=== PATIENT | female | born 2000 | race Caucasian/White ===

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

== ENCOUNTER 2019-01-12 12:54 | Emergency (ER) | payer BC, MEDICAID ==
[~2019-01-12] VITALS: Ht 160 cm; Wt 138.0 kg
[2019-01-12 13:40] LABS: HEMATOCRIT 41.4 % (36.0-47.0); HEMOGLOBIN 13.1 g/dl (12.0-15.5); MEAN CORPUSCULAR HEMOGLOBIN 26.5 pg (27.0-33.0); MEAN CORPUSCULAR HGB CONC 31.6 g/dl (32.0-36.5); MEAN CORPUSCULAR VOLUME 83.8 fl (80.0-96.0); PLATELET COUNT, AUTOMATED 345 10^3/uL (150-450); RED BLOOD COUNT 4.94 10^6/uL (4.00-5.40)
[2019-01-12 14:10] LABS: HCG, SERUM QUALITATIVE NEGATIVE (NEGATIVE)
[2019-01-12 14:11] LABS: ACETAMINOPHEN LEVEL < 2.0 UG/ML (10.0-30.0); ALBUMIN 3.3 GM/DL (3.2-5.2); ALT/SGPT 16 U/L (12-78); BILIRUBIN,DIRECT < 0.1 MG/DL (0.0-0.2); BILIRUBIN,TOTAL 0.2 MG/DL (0.2-1.0); BLOOD UREA NITROGEN 12 MG/DL (7-18); CALCIUM LEVEL 8.9 MG/DL (8.5-10.1); CARBON DIOXIDE LEVEL 28 MEQ/L (21-32); CHLORIDE LEVEL 108 MEQ/L (98-107); CREATININE FOR GFR 0.75 MG/DL (0.55-1.30); ETHYL ALCOHOL (ETHANOL) < 0.003 % (0.000-0.010); GLUCOSE, FASTING 90 MG/DL (70-100); SALICYLATE LEVEL < 1.7 MG/DL (5.0-30.0); SODIUM LEVEL 142 MEQ/L (136-145); THYROID STIMULATING HORMONE 0.511 uIU/ML (0.463-3.98); TOTAL PROTEIN 7.3 GM/DL (6.4-8.2)
[2019-01-12 15:35] LABS: AMPHETAMINES LEVEL URINE NEGATIVE (NEGATIVE); BARBITURATES URINE NEGATIVE (NEGATIVE); BENZODIAZEPINES URINE NEGATIVE (NEGATIVE); CANNABINOIDS URINE NEGATIVE (NEGATIVE); COCAINE METABOLITE URINE NEGATIVE (NEGATIVE); METHADONE URINE NEGATIVE (NEGATIVE); OPIATES URINE NEGATIVE (NEGATIVE); PHENCYCLIDINE URINE NEGATIVE (NEGATIVE)
[2019-01-12 19:45] VITALS: BP 119/73
--- NOTE | 2019-01-14 09:36 | ECGEPIP ---
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
== END 2019-01-12 19:53 ==
LOC: M ED 12:54
DX: F32.9 Major depressive disorder, single episode, unspecified (principal); R45.851 Suicidal ideations; Z91.5 Personal history of self-harm; F31.9 Bipolar disorder, unspecified; Z72.0 Tobacco use
CPT/HCPCS: 80048; 80076; 80307; 84443; 84703; 85027; 93005; 99285; G0480

== ENCOUNTER → 2019-02-07 | Outpatient (REF) | payer MEDICAID | LOC: M SFHCPLAZ 11:59 | PROVIDERS: ATTEND Nurse Practitioner Family | DX: Z13.1 Encounter for screening for diabetes mellitus (principal); E03.9 Hypothyroidism, unspecified; E66.01 Morbid (severe) obesity due to excess calories; E78.49 Other hyperlipidemia; Z53.9 Procedure and treatment not carried out, unspecified reason ==

== ENCOUNTER → 2019-02-13 | Outpatient (REF) | payer MEDICAID ==
[2019-02-13 14:09] LABS: ALBUMIN 3.1 GM/DL (3.2-5.2); ALT/SGPT 13 U/L (12-78); BILIRUBIN,TOTAL 0.3 MG/DL (0.2-1.0); BLOOD UREA NITROGEN 12 MG/DL (7-18); CALCIUM LEVEL 8.7 MG/DL (8.5-10.1); CARBON DIOXIDE LEVEL 25 MEQ/L (21-32); CHLORIDE LEVEL 107 MEQ/L (98-107); CHOLESTEROL LEVEL 214 MG/DL (<200); CHOLESTEROL RISK RATIO 4.115 (<5); CREATININE FOR GFR 0.66 MG/DL (0.55-1.30); GLUCOSE, FASTING 85 MG/DL (70-100); HDL CHOLESTEROL 52 MG/DL (>40); LDL CHOLESTEROL 124 MG/DL (<100); NON-HDL-C 162 MG/DL; POTASSIUM SERUM 4.5 MEQ/L (3.5-5.1); SODIUM LEVEL 141 MEQ/L (136-145); TOTAL PROTEIN 6.9 GM/DL (6.4-8.2); TRIGLYCERIDES LEVEL 188 MG/DL (<150)
[2019-02-13 14:49] LABS: HEMOGLOBIN A1c 5.3 %
== END ==
LOC: M SFHCPLAZ 11:16
PROVIDERS: ATTEND Nurse Practitioner Family
DX: E03.9 Hypothyroidism, unspecified (principal); E66.01 Morbid (severe) obesity due to excess calories; Z13.1 Encounter for screening for diabetes mellitus; E78.49 Other hyperlipidemia

== ENCOUNTER → 2019-05-09 | Outpatient (REF) | payer MEDICAID ==
[~2019-05-09] MED LIST changes: -METH36TA; +METH36TA5; -SENE8.6T; -SENE8.6T PO; +SENN1TAB38; +SENN1TAB38 PO; -TRAZ-160 PO; +TRAZ-252 PO; +TRAZ1TAB10 PO; -TRAZO50TA PO
[2019-05-09 13:51] LABS: FREE T4 1.36 NG/DL (0.78-1.33); THYROID STIMULATING HORMONE 0.63 uIU/ML (0.463-3.98)
== END ==
LOC: M SFHCPLAZ 10:53
PROVIDERS: ATTEND Nurse Practitioner Family
DX: E03.9 Hypothyroidism, unspecified (principal)

== ENCOUNTER → 2019-09-20 | Outpatient (REF) | payer MEDICAID ==
[~2019-09-20] MED LIST changes: -DIPH25CA; -DIPH25CA PO; +DIPH25CA32; +DIPH25CA32 PO
[2019-09-20 15:34] LABS: HEMATOCRIT 41.3 % (36.0-47.0); HEMOGLOBIN 12.3 g/dl (12.0-15.5); MEAN CORPUSCULAR HEMOGLOBIN 25.4 pg (27.0-33.0); MEAN CORPUSCULAR HGB CONC 29.8 g/dl (32.0-36.5); MEAN CORPUSCULAR VOLUME 85.3 fl (80.0-96.0); PLATELET COUNT, AUTOMATED 342 10^3/uL (150-450); RED BLOOD COUNT 4.84 10^6/uL (4.00-5.40); WHITE BLOOD COUNT 10.1 10^3/uL (4.0-10.0)
[2019-09-20 16:52] LABS: HEMOGLOBIN A1c 6.2 %
[2019-09-20 17:02] LABS: ALBUMIN 3.1 GM/DL (3.2-5.2); ALT/SGPT 14 U/L (12-78); BILIRUBIN,TOTAL 0.3 MG/DL (0.2-1.0); BLOOD UREA NITROGEN 13 MG/DL (7-18); CALCIUM LEVEL 9.1 MG/DL (8.5-10.1); CARBON DIOXIDE LEVEL 26 MEQ/L (21-32); CHLORIDE LEVEL 109 MEQ/L (98-107); CHOLESTEROL LEVEL 208 MG/DL (<200); CHOLESTEROL RISK RATIO 3.714 (<5); CREATININE FOR GFR 0.66 MG/DL (0.55-1.30); FREE T4 1.39 NG/DL (0.78-1.33); GLUCOSE, FASTING 77 MG/DL (70-100); HDL CHOLESTEROL 56 MG/DL (>40); LDL CHOLESTEROL 126 MG/DL (<100); NON-HDL-C 152 MG/DL; POTASSIUM SERUM 4.3 MEQ/L (3.5-5.1); SODIUM LEVEL 142 MEQ/L (136-145); TRIGLYCERIDES LEVEL 132 MG/DL (<150)
== END ==
LOC: M LABDRAWP 13:14
PROVIDERS: ATTEND Nurse Practitioner Psychiatric/Mental Health
DX: F43.12 Post-traumatic stress disorder, chronic (principal)

== ENCOUNTER 2020-04-09 11:39 | Emergency (ER) | payer MEDICAID, OTHER ==
[~2020-04-09] VITALS: Ht 160 cm; Wt 118.2 kg
[~2020-04-09 11:39] MED LIST changes: -BUPR300T34 PO; +BUPR300T92 PO; +EQ A1CRE3; -MAPA325T2; +MAPA325T8; -TERB1CRE12
[2020-04-09] MEDS ORDERED: BUPR300T92 (11:49)
[2020-04-09] MEDS ORDERED: LITH300C (11:49)
[2020-04-09 13:43] LABS: BASO % 0.2 % (0.0-1.0); EOS # 0.1 10^3/uL (0.0-0.5); HEMATOCRIT 40.6 % (36.0-47.0); HEMOGLOBIN 12.8 g/dl (12.0-15.5); LYMPH # 3.5 10^3/uL (1.5-5.0); LYMPH % 34.9 % (24.0-44.0); MEAN CORPUSCULAR HEMOGLOBIN 26.9 pg (27.0-33.0); MEAN CORPUSCULAR HGB CONC 31.5 g/dl (32.0-36.5); MEAN CORPUSCULAR VOLUME 85.5 fl (80.0-96.0); MONO # 0.7 10^3/uL (0.0-0.8); MONO % 7.3 % (0.0-5.0); NEUTROPHILS # 5.6 10^3/uL (1.5-8.5); NEUTROPHILS % 56.3 % (36.0-66.0); PLATELET COUNT, AUTOMATED 337 10^3/uL (150-450); RED BLOOD COUNT 4.75 10^6/uL (4.00-5.40); WHITE BLOOD COUNT 9.9 10^3/uL (4.0-10.0)
[2020-04-09 14:01] LABS: C REACTIVE PROTEIN QUANTITATIV 1.96 MG/DL (0.00-0.30)
[2020-04-09 14:10] LABS: ERYTHROCYTE SEDIMENTATION RATE 41 mm/hr (0-20)
--- NOTE | 2020-04-09 15:01 | REP ---
Left upper extremity duplex Doppler venous ultrasound. Real time compression and duplex Doppler evaluation of the left upper extremity deep venous system is performed. The left subclavian, jugular, axillary, brachial, basilic and cephalic veins are fully compressible where accessible with transducer pressure, and demonstrate no intraluminal thrombus and normal venous waveforms. There is no evidence of deep venous thrombosis. Impression: No evidence of deep venous thrombosis of the left upper extremity deep vein system. Electronically Signed by Jose Molina MD 04/09/2020 02:53 P
[2020-04-09] MEDS ORDERED: PRED20TA PO (15:05)
[2020-04-09 15:23] VITALS: BP 137/67
== END 2020-04-09 15:24 | disposition home or self-care (01) ==
LOC: M ED 11:39
DX: M79.9 Soft tissue disorder, unspecified (principal); I10 Essential (primary) hypertension; J45.909 Unspecified asthma, uncomplicated; F41.9 Anxiety disorder, unspecified; F31.9 Bipolar disorder, unspecified; F43.10 Post-traumatic stress disorder, unspecified; Z79.899 Other long term (current) drug therapy

== ENCOUNTER → 2020-08-19 | Outpatient (REF) | payer OTHER ==
[~2020-08-19] MED LIST changes: +BUPR300T92; +LITH300C; +PRED20TA PO
[2020-08-19 18:18] LABS: ALBUMIN 3.5 GM/DL (3.2-5.2); ALT/SGPT 39 U/L (12-78); BILIRUBIN,TOTAL 0.4 MG/DL (0.2-1.0); BLOOD UREA NITROGEN 10 MG/DL (7-18); CALCIUM LEVEL 9.1 MG/DL (8.5-10.1); CARBON DIOXIDE LEVEL 29 MEQ/L (21-32); CHLORIDE LEVEL 107 MEQ/L (98-107); CHOLESTEROL LEVEL 197 MG/DL (<200); CHOLESTEROL RISK RATIO 4.925 (<5); CREATININE FOR GFR 0.81 MG/DL (0.55-1.30); FREE T4 1.35 NG/DL (0.76-1.46); GLOMERULAR FILTRATION RATE > 60.0 (>60); GLUCOSE, FASTING 76 MG/DL (70-100); HDL CHOLESTEROL 40 MG/DL (>40); LDL CHOLESTEROL 129 MG/DL (<100); NON-HDL-C 157 MG/DL; POTASSIUM SERUM 5.1 MEQ/L (3.5-5.1); SODIUM LEVEL 141 MEQ/L (136-145); THYROID STIMULATING HORMONE 0.611 uIU/ML (0.358-3.740); TRIGLYCERIDES LEVEL 139 MG/DL (<150)
[2020-08-19 18:40] LABS: HEMOGLOBIN A1c 5.6 %
== END ==
LOC: M SFHCPLAZ 16:10
PROVIDERS: ATTEND Physician Assistant
DX: E66.01 Morbid (severe) obesity due to excess calories (principal); E03.9 Hypothyroidism, unspecified; E78.2 Mixed hyperlipidemia

== ENCOUNTER → 2020-08-28 | Outpatient (REF) | payer OTHER ==
[2020-09-05 14:23] LABS: CHLAMYDIA DNA AMPLIFICATION NEGATIVE (NEGATIVE); GC DNA AMPLIFICATION NEGATIVE (NEGATIVE)
== END ==
LOC: M SFHCWAGY 13:11
PROVIDERS: ATTEND Nurse Practitioner Family
DX: Z11.3 Encounter for screening for infections with a predominantly sexual mode of transmission (principal)

== ENCOUNTER 2020-10-04 16:11 | Emergency (ER) | payer MEDICAID, OTHER ==
[~2020-10-04] VITALS: Ht 160 cm; Wt 164.9 kg
[~2020-10-04 16:11] MED LIST changes: -BUPR300T92; -LITH300C
[2020-10-04 17:44] LABS: HEMATOCRIT 41.1 % (36.0-47.0); HEMOGLOBIN 12.6 g/dl (12.0-15.5); MEAN CORPUSCULAR HEMOGLOBIN 26.5 pg (27.0-33.0); MEAN CORPUSCULAR HGB CONC 30.7 g/dl (32.0-36.5); MEAN CORPUSCULAR VOLUME 86.3 fl (80.0-96.0); PLATELET COUNT, AUTOMATED 274 10^3/uL (150-450); RED BLOOD COUNT 4.76 10^6/uL (4.00-5.40); WHITE BLOOD COUNT 11.8 10^3/uL (4.0-10.0)
[2020-10-04 18:18] LABS: HCG, SERUM QUALITATIVE NEGATIVE (NEGATIVE)
[2020-10-04 18:24] LABS: ACETAMINOPHEN LEVEL < 2.0 UG/ML (10.0-30.0); ALBUMIN 3.4 GM/DL (3.2-5.2); ALT/SGPT 19 U/L (12-78); BILIRUBIN,DIRECT < 0.1 MG/DL (0.0-0.2); BILIRUBIN,TOTAL 0.2 MG/DL (0.2-1.0); BLOOD UREA NITROGEN 13 MG/DL (7-18); CARBON DIOXIDE LEVEL 28 MEQ/L (21-32); CHLORIDE LEVEL 106 MEQ/L (98-107); CREATININE FOR GFR 0.85 MG/DL (0.55-1.30); ETHYL ALCOHOL (ETHANOL) < 0.003 % (0.000-0.010); GLOMERULAR FILTRATION RATE > 60.0 (>60); GLUCOSE, FASTING 92 MG/DL (70-100); POTASSIUM SERUM 4.1 MEQ/L (3.5-5.1); SALICYLATE LEVEL < 1.7 MG/DL (5.0-30.0); SODIUM LEVEL 140 MEQ/L (136-145); THYROID STIMULATING HORMONE 0.774 uIU/ML (0.358-3.740); TOTAL PROTEIN 7.4 GM/DL (6.4-8.2)
[2020-10-04 19:26] LABS: AMPHETAMINES LEVEL URINE NEGATIVE (NEGATIVE); BARBITURATES URINE NEGATIVE (NEGATIVE); BENZODIAZEPINES URINE NEGATIVE (NEGATIVE); CANNABINOIDS URINE NEGATIVE (NEGATIVE); COCAINE METABOLITE URINE NEGATIVE (NEGATIVE); METHADONE URINE NEGATIVE (NEGATIVE); OPIATES URINE NEGATIVE (NEGATIVE); PHENCYCLIDINE URINE NEGATIVE (NEGATIVE)
[2020-10-04 21:54] VITALS: BP 149/92
== END 2020-10-04 21:55 | disposition home or self-care (01) ==
LOC: M ED 16:11
DX: F43.0 Acute stress reaction (principal); F31.9 Bipolar disorder, unspecified; I10 Essential (primary) hypertension; E03.9 Hypothyroidism, unspecified; Z79.899 Other long term (current) drug therapy
CPT/HCPCS: 36415; 80048; 80076; 80307; 84443; 84703; 85027; 99284; G0480

== ENCOUNTER 2020-10-06 22:26 | Inpatient (IN) | payer MEDICAID ==
[~2020-10-06] VITALS: Ht 160 cm; Wt 164.7 kg
[~2020-10-06 22:26] MED LIST changes: +RISP-8; +RISP-8 PO; -RISP1TAB3; -RISP1TAB3 PO
[2020-10-07 00:36] LABS: HEMATOCRIT 41.4 % (36.0-47.0); HEMOGLOBIN 12.3 g/dl (12.0-15.5); MEAN CORPUSCULAR HEMOGLOBIN 26.9 pg (27.0-33.0); MEAN CORPUSCULAR HGB CONC 29.7 g/dl (32.0-36.5); MEAN CORPUSCULAR VOLUME 90.4 fl (80.0-96.0); PLATELET COUNT, AUTOMATED 321 10^3/uL (150-450); RED BLOOD COUNT 4.58 10^6/uL (4.00-5.40); WHITE BLOOD COUNT 12.2 10^3/uL (4.0-10.0)
[2020-10-07 01:33] LABS: ACETAMINOPHEN LEVEL < 2.0 UG/ML (10.0-30.0); ALBUMIN 3.3 GM/DL (3.2-5.2); ALT/SGPT 19 U/L (12-78); BILIRUBIN,DIRECT < 0.1 MG/DL (0.0-0.2); BILIRUBIN,TOTAL 0.2 MG/DL (0.2-1.0); BLOOD UREA NITROGEN 13 MG/DL (7-18); CALCIUM LEVEL 8.9 MG/DL (8.5-10.1); CARBON DIOXIDE LEVEL 24 MEQ/L (21-32); CHLORIDE LEVEL 107 MEQ/L (98-107); CREATININE FOR GFR 0.85 MG/DL (0.55-1.30); ETHYL ALCOHOL (ETHANOL) < 0.003 % (0.000-0.010); GLOMERULAR FILTRATION RATE > 60.0 (>60); GLUCOSE, FASTING 97 MG/DL (70-100); SALICYLATE LEVEL < 1.7 MG/DL (5.0-30.0); SODIUM LEVEL 140 MEQ/L (136-145); TOTAL PROTEIN 7.2 GM/DL (6.4-8.2)
[2020-10-07 01:34] LABS: HCG, SERUM QUALITATIVE NEGATIVE (NEGATIVE)
[2020-10-07 03:02] LABS: AMPHETAMINES LEVEL URINE NEGATIVE (NEGATIVE); BARBITURATES URINE NEGATIVE (NEGATIVE); BENZODIAZEPINES URINE NEGATIVE (NEGATIVE); CANNABINOIDS URINE NEGATIVE (NEGATIVE); COCAINE METABOLITE URINE NEGATIVE (NEGATIVE); METHADONE URINE NEGATIVE (NEGATIVE); OPIATES URINE NEGATIVE (NEGATIVE); PHENCYCLIDINE URINE NEGATIVE (NEGATIVE)
[2020-10-07] MEDS ORDERED: NORG1TAB33 PO (05:42)
[2020-10-07] MEDS ORDERED: BUPR150T3 PO (05:42)
[2020-10-07] MEDS ORDERED: HYDR12.55 PO (05:42)
[2020-10-07] MEDS ORDERED: LEVO50TA5 PO (05:42)
[2020-10-07] MEDS ORDERED: LATU120T PO (05:42)
[2020-10-07] MEDS ORDERED: PRAZ5CAP PO (05:43)
--- NOTE | 2020-10-07 06:18 | ECGEPIP ---
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
[2020-10-07] MEDS ORDERED: MED REC COMMENT (06:20)
[2020-10-07] MEDS ORDERED: hydroCHLOROthiazide 12.5 MG CAPSULE PO ONE (08:15)
[2020-10-07] MEDS: buPROPion **XL** TABLET 150MG (WELLBUTRIN XL) PO SCH ×2 (08:21→08:43)
[2020-10-07] MEDS: LEVOTHYROXINE 50MCG TABLET (0.05MG) PO SCH (08:21)
[2020-10-07] MEDS ORDERED: buPROPion 75 MG TAB PO SCH (09:00)
[2020-10-07] MEDS ORDERED: LITHIUM CARBONATE 300 MG CAP PO ONE (20:30)
[2020-10-07] MEDS ORDERED: PRAZOSIN 1 MG CAP PO SCH (21:00)
[2020-10-08] MEDS: LEVOTHYROXINE 50MCG TABLET (0.05MG) PO SCH (07:34)
[2020-10-08] MEDS: buPROPion **XL** TABLET 150MG (WELLBUTRIN XL) PO SCH ×2 (08:48)
[2020-10-08] MEDS ORDERED: IBUPROFEN 400 MG TAB PO PRN (13:45)
[2020-10-08] MEDS ORDERED: MAALOX 30 ML SUSP *UDC PO PRN (13:45)
[2020-10-08] MEDS ORDERED: MOM 30ML SUSPENSION UDC PO PRN (13:45)
[2020-10-08 14:23] VITALS: BP 142/81
[2020-10-08] MEDS: LITHIUM CARBONATE 300 MG CAP PO SCH (22:37)
[2020-10-08] MEDS: PRAZOSIN 1 MG CAP PO SCH (22:38)
[2020-10-08] MEDS: traZODone 50 MG TAB PO PRN (22:39)
[2020-10-09] MEDS: LEVOTHYROXINE 50MCG TABLET (0.05MG) PO SCH (05:55)
[2020-10-09] MEDS ORDERED: LEVOTHYROXINE 50MCG TABLET (0.05MG) PO SCH (06:30)
[2020-10-09 06:36] VITALS: BP 123/66
[2020-10-09] MEDS ORDERED: LURASIDONE HCL 40 MG TAB (LATUDA) PO SCH (07:30)
[2020-10-09] MEDS ORDERED: buPROPion **XL** TABLET 150MG (WELLBUTRIN XL) PO SCH ×2 (09:00)
[2020-10-09] MEDS: hydroCHLOROthiazide 12.5 MG CAPSULE PO SCH (09:52)
[2020-10-09] MEDS: buPROPion **XL** TABLET 150MG (WELLBUTRIN XL) PO SCH (09:59)
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
--- NOTE | 2020-10-09 12:11 | HPEPDOC ---
[facility] Medical History & Physical Date of Admission Oct 08, 2020 Date of Service: Oct 09, 2020 History and Physical Chief complaint: Presented to the emergency room with suicidal ideation History of present illness: Patient is 20-year-old female with a PMHx of Depression / Anxiety / Bipolar / PTSD / Borderline personality, Hx of Suicidal attempts (Overdose with pills), HTN, Hypothyroidism, Chronic constipation, Vitamin D deficiency, Hx of Ovarian Cyst, Acanthosis nigricans, Super morbid obesity (BMI of 64.3) who presented to the ER with suicidal ideation. Patient reported that she had held a knife to her neck and was brought to the ER for further evaluation. Patient was admitted to inpatient mental health unit under the care of psychiatry. Hospital services called for medical screening evaluation. Currently patient reports a mild headache and nausea. Denies any vomiting, chest pain, shortness of breath, palpitations, cough, abdominal pain, diarrhea, constipation, or urinary discomfort. Patient reports her appetite is fairly normal. Denies any changes in her weight. Past Medical History: Depression / Anxiety / Bipolar / PTSD / Borderline personality, Hx of Suicidal attempts (Overdose with pills), HTN, Hypothyroidism, Chronic constipation, Vitamin D deficiency, Hx of Ovarian Cyst, Acanthosis nigricans, Super morbid obesity (BMI of 64.3) Past Surgical History: Right salpingo-oophorectomy and appendectomy at the age of 10 Allergies: See below Medications: See below Family History: - Mother with no significant medical problems - Father with a history of hypertension, high cholesterol, diabetes and cirrhosis Social History: - Denies the use of alcohol, tobacco or illicit drugs - Denies recent travel or sick contacts - Lives with mother and her boyfriend - Occupation; currently unemployed Review of Systems: 10 point review of systems complete, all negative otherwise stated in HPI Physical exam: - Vitals: BP [123/66], HR [108], RR [20], Sat [100%RA], Temp [97.7F] - General: Lying in bed, No acute distress, Speaking in full sentences, AAOx3 - HEENT: NC, AT, PERRLA - CVS: RRR, +S1S2, - Lungs: Fair air entry bilaterally, No appreciable wheezing / rales / rhonchi - Abdomen: Soft, Non-distended, Non-tender, significant obesity and pannus - Extremities: No lower extremity edema, No calf tenderness - Neuro: No focal motor or sensory deficit - Skin: No visible rashes Labs: See below Imaging: See below EKG: See below Assessment and Plan: Suicidal ideation - Extensive history of Depression / Anxiety / Bipolar / PTSD / Borderline personality - Hx of Suicidal attempts (Overdose with pills) - Admitted to the inpatient mental health unit under the care of psychiatry - Currently being managed by psychiatry Mild leukocytosis - Review of systems is negative - Patient is afebrile and hemodynamically stable - Will hold off on antibiotic therapy Super morbid obesity - BMI of 64.3 - Complicating medical care - Patient is working with her PCP, Christiane Hernandez to establish bariatric surgery HTN - BP well controlled - c/w HCTZ Hypothyroidism - c/w Levothyroxine Chronic constipation - c/w Bowel regimen as ordered Vitamin D deficiency - Resume supplementation as outpatient Hx of Ovarian Cyst - s/p right sided salpingo-oophorectomy DVT prophylaxis - Will continue with early ambulation Female oxyacetylene cutter was present throughout the duration of this history and physical examination Thank you for this consultation; hospital service will now sign off, please reconsult as needed Vital Signs Vital Signs Date Time Temp Pulse Resp B/P (MAP) Pulse Ox O2 Delivery O2 Flow Rate FiO2 10/09/20 06:36 97.7 108 20 123/66 (85) 10/08/20 13:59 100 Room Air Home Medications Scheduled Bupropion HCl (Bupropion Xl) 300 Mg Tab.er.24h, 300 MG PO DAILY Bupropion Hcl (Bupropion Xl) 150 Mg Tab.er.24h, 150 MG PO DAILY Hydrochlorothiazide (Hydrochlorothiazide) 12.5 Mg Tablet, 12.5 MG PO DAILY Levothyroxine Sodium (Levothyroxine Sodium) 50 Mcg Tablet, 50 MCG PO QAM [place] Carbonate ([place] Carbonate) 300 Mg Capsule, 1 CAP PO QHS Lurasidone HCl (Latuda) 120 Mg Tablet, 120 MG PO QAM Norgestimate-Ethinyl Estradiol (Tri-Lo-Yamilex Tablet) 1 Each Tablet, 1 TAB PO DAILY Prazosin Hcl (Prazosin HCl) 5 Mg Capsule, 10 MG PO QPM Miscellaneous Medications [Med Rec Comment] PATIENT UNABLE TO VERIFY STRENGTHS OF MEDICATIONS AND LAST DOSE USED EXTERNAL AND CALLED PHARMACY ([facility]) TO VERIFY. Allergies Coded Allergies: No Known Allergies (Verified , 10/06/20) CHRISTOPHER BARRETT MD Oct 09, 2020 12:11
[2020-10-09 16:00] VITALS: BP 143/71
[2020-10-09] MEDS: LURASIDONE HCL 40 MG TAB (LATUDA) PO SCH (18:08)
[2020-10-09] MEDS: PRAZOSIN 1 MG CAP PO SCH (22:17)
[2020-10-09] MEDS: LITHIUM CARBONATE 300 MG CAP PO SCH (22:17)
[2020-10-10] MEDS: LEVOTHYROXINE 50MCG TABLET (0.05MG) PO SCH (05:55)
[2020-10-10 06:30] VITALS: BP 138/83
[2020-10-10 06:41] VITALS: BP 138/83
[2020-10-10] MEDS: hydroCHLOROthiazide 12.5 MG CAPSULE PO SCH (10:16)
[2020-10-10] MEDS: buPROPion **XL** TABLET 150MG (WELLBUTRIN XL) PO SCH (10:16)
--- NOTE | 2020-10-10 12:39 | MHIPNPDOC ---
[facility] Progress Note Progress Note DATE OF SERVICE: 10/10/20 HISTORY: the patient is met with today, she was fairly nauseous and had thrown up, she described having anxiety about her dog and was overthinking many things, she reports that she also ate to quickly. She reports still feeling quite depressed apologizes for being dismissive yesterday. VITAL SIGNS: See below. NEW TEST RESULTS: N/A CURRENT MEDICATIONS: See below. MENTAL STATUS EXAMINATION: General: Well dressed with good hygiene Speech: Spontaneous and fluid Thought processes: Linear and logical Thought content: guarded Abstract reasoning, and computation: Intact Description of associations: Intact Description of abnormal or psychotic thoughts: none elicited Judgment: poor Insight: poor Orientation: Alert and orientated 3 Recent and remote memory: Intact Attention span and concentration: Intact Fund of knowledge: Adequate Mood: "okay" Affect: dysthymic, constricted DIAGNOSES: 1. MDD, recurrent, severe without psychotic symptoms. 2. PTSD, unspecified ASSESSMENT: the patient appears to be still suffering from quite a bit of anx iety, unclear if she is attempting to vomit on purpose, but will monitor closely MANAGEMENT PLAN: Continue current home meds of. Wellbutrin 450 mg daily of extended release, Latuda 120 mg QHS, prazosin 10 mg QHS, will contemplate changing mood stabilizer Zofran 4 mg every 4 hours as needed for nausea serax 10 mg once for acute anxiety TIME SPENT: 15 minutes. Vital Signs Vital Signs Date Time Temp Pulse Resp B/P (MAP) Pulse Ox O2 Delivery O2 Flow Rate FiO2 10/10/20 06:41 96.9 109 20 138/83 (101) 97 Room Air Current Medications Current Medications Medications (Trade) Dose Ordered Sig/Ashlyn Route PRN Reason Start Time Stop Time Status Last Admin Dose Admin Al Hydrox/Mg Hydrox/Simethicone (Mylanta) 30 ml Q4HP PRN PO HEARTBURN/INDIGESTION 10/08/20 13:45 Bupropion HCl (Wellbutrin Xl) 150 mg DAILY PO 10/07/20 09:00 10/08/20 22:36 DC 10/08/20 08:48 Bupropion HCl (Wellbutrin Xl) 150 mg DAILY PO 10/09/20 09:00 Cancel Bupropion HCl (Wellbutrin Xl) 300 mg DAILY PO 10/07/20 09:00 10/08/20 22:36 DC 10/08/20 08:48 Bupropion HCl (Wellbutrin Xl) 300 mg DAILY PO 10/09/20 09:00 10/09/20 09:55 DC Bupropion HCl (Wellbutrin Xl) 450 mg DAILY PO 10/09/20 09:00 10/10/20 10:16 Bupropion HCl (Wellbutrin) 150 mg DAILY PO 10/07/20 09:00 Cancel Home Med (Med Rec Complete!) ASDIRECTED XX 10/07/20 06:30 10/07/20 06:23 DC Hydrochlorothiazide (Hydrodiuril) 12.5 mg DAILY PO 10/09/20 09:00 10/10/20 10:16 Ibuprofen (Advil) 400 mg Q6HP PRN PO PAIN 10/08/20 13:45 Levothyroxine Sodium (Synthroid) 50 mcg DAILY@0600 PO 10/07/20 09:00 10/08/20 13:45 DC 10/08/20 07:34 Levothyroxine Sodium (Synthroid) 50 mcg DAILY@0600 PO 10/09/20 06:00 10/10/20 05:55 Levothyroxine Sodium (Synthroid) 50 mcg DAILY@0600 PO 10/09/20 06:30 UNV [place] Carbonate ([place] Carbonate) 300 mg QHS PO 10/08/20 21:00 10/09/20 22:17 Lurasidone HCl (Latuda) 120 mg DAILY@18 PO 10/09/20 18:00 10/09/20 18:08 Lurasidone HCl (Latuda) 120 mg QAM@0730 PO 10/09/20 07:30 10/09/20 14:03 DC Magnesium Hydroxide (Milk Of Magnesia) 30 ml DAILYPRN PRN PO CONSTIPATION 10/08/20 13:45 Prazosin HCl (Minipress) 10 mg QHS PO 10/07/20 21:00 10/08/20 22:32 DC 10/07/20 20:43 Prazosin HCl (Minipress) 10 mg QPM PO 10/08/20 21:00 10/09/20 22:17 Trazodone HCl (Desyrel) 50 mg QHSP PRN PO INSOMNIA 10/08/20 13:45 10/08/20 22:39 Allergies Coded Allergies: No Known Allergies (Verified , 10/06/20) DENNY SHAVER DO Oct 10, 2020 12:39
[2020-10-10] MEDS ORDERED: ONDANSETRON 4 MG ORAL DISINTEGRATING TAB PO PRN (14:30)
[2020-10-10] MEDS ORDERED: OXAZEPAM 10 MG CAP PO ONE (14:30)
[2020-10-10] MEDS: LURASIDONE HCL 40 MG TAB (LATUDA) PO SCH (17:20)
[2020-10-10 17:56] VITALS: BP 135/63
[2020-10-10] MEDS: LITHIUM CARBONATE 300 MG CAP PO SCH (22:19)
[2020-10-10] MEDS: PRAZOSIN 1 MG CAP PO SCH (22:23)
[2020-10-11] MEDS: LEVOTHYROXINE 50MCG TABLET (0.05MG) PO SCH (05:44)
[2020-10-11 06:55] VITALS: BP 138/77
[2020-10-11] MEDS: buPROPion **XL** TABLET 150MG (WELLBUTRIN XL) PO SCH (09:00)
[2020-10-11] MEDS: hydroCHLOROthiazide 12.5 MG CAPSULE PO SCH (09:00)
--- NOTE | 2020-10-11 09:54 | MHIPNPDOC ---
[facility] Progress Note Progress Note DATE OF SERVICE: 10/11/20 HISTORY: The patient was met with today she reports she is still feeling quite depressed, she speaks about being spoken of down to because of her weight, sig nificant amount depression and hopelessness is present during this discussion. She generally hasn't left her room and refuses to engage much in the milieu. She peers quite isolative and depressed.. VITAL SIGNS: See below. NEW TEST RESULTS: N/A CURRENT MEDICATIONS: See below. MENTAL STATUS EXAMINATION: General: Well dressed with good hygiene Speech: Spontaneous and fluid Thought processes: Linear and logical Thought content: guarded Abstract reasoning, and computation: Intact Description of associations: Intact Description of abnormal or psychotic thoughts: none elicited Judgment: poor Insight: poor Orientation: Alert and orientated 3 Recent and remote memory: Intact Attention span and concentration: Intact Fund of knowledge: Adequate Mood: "okay" Affect: dysthymic, constricted DIAGNOSES: 1. MDD, recurrent, severe without psychotic symptoms. 2. PTSD, unspecified ASSESSMENT: The patient appears to be suffering from quite a bit depression will change augmentation agent to Abilify as she reports a supratherapeutic dose of Latuda have been helpful but it is unlikely that the outpatient will continue at MANAGEMENT PLAN: Continue current home meds of. Wellbutrin 450 mg daily of extended release, and, prazosin 10 mg QHS, Start Abilify 5 mg daily at bedtime, Latuda drop to 60 mg nightly TIME SPENT: 15 minutes. Vital Signs Vital Signs Date Time Temp Pulse Resp B/P (MAP) Pulse Ox O2 Delivery O2 Flow Rate FiO2 10/11/20 06:55 98.3 91 16 138/77 (97) 97 Room Air Current Medications Current Medications Medications (Trade) Dose Ordered Sig/Ashlyn Route PRN Reason Start Time Stop Time Status Last Admin Dose Admin Al Hydrox/Mg Hydrox/Simethicone (Mylanta) 30 ml Q4HP PRN PO HEARTBURN/INDIGESTION 10/08/20 13:45 Bupropion HCl (Wellbutrin Xl) 150 mg DAILY PO 10/07/20 09:00 10/08/20 22:36 DC 10/08/20 08:48 Bupropion HCl (Wellbutrin Xl) 150 mg DAILY PO 10/09/20 09:00 Cancel Bupropion HCl (Wellbutrin Xl) 300 mg DAILY PO 10/07/20 09:00 10/08/20 22:36 DC 10/08/20 08:48 Bupropion HCl (Wellbutrin Xl) 300 mg DAILY PO 10/09/20 09:00 10/09/20 09:55 DC Bupropion HCl (Wellbutrin Xl) 450 mg DAILY PO 10/09/20 09:00 10/10/20 10:16 Bupropion HCl (Wellbutrin) 150 mg DAILY PO 10/07/20 09:00 Cancel Home Med (Med Rec Complete!) ASDIRECTED XX 10/07/20 06:30 10/07/20 06:23 DC Hydrochlorothiazide (Hydrodiuril) 12.5 mg DAILY PO 10/09/20 09:00 10/10/20 10:16 Ibuprofen (Advil) 400 mg Q6HP PRN PO PAIN 10/08/20 13:45 Levothyroxine Sodium (Synthroid) 50 mcg DAILY@0600 PO 10/07/20 09:00 10/08/20 13:45 DC 10/08/20 07:34 Levothyroxine Sodium (Synthroid) 50 mcg DAILY@0600 PO 10/09/20 06:00 10/11/20 05:44 Levothyroxine Sodium (Synthroid) 50 mcg DAILY@0600 PO 10/09/20 06:30 UNV [place] Carbonate ([place] Carbonate) 300 mg QHS PO 10/08/20 21:00 10/10/20 22:19 Lurasidone HCl (Latuda) 120 mg DAILY@18 PO 10/09/20 18:00 10/10/20 17:20 Lurasidone HCl (Latuda) 120 mg QAM@0730 PO 10/09/20 07:30 10/09/20 14:03 DC Magnesium Hydroxide (Milk Of Magnesia) 30 ml DAILYPRN PRN PO CONSTIPATION 10/08/20 13:45 Ondansetron HCl (Zofran Odt) 4 mg Q4HP PRN PO NAUSEA OR VOMITING 10/10/20 14:30 10/10/20 15:21 Prazosin HCl (Minipress) 10 mg QHS PO 10/07/20 21:00 10/08/20 22:32 DC 10/07/20 20:43 Prazosin HCl (Minipress) 10 mg QPM PO 10/08/20 21:00 10/10/20 22:23 Trazodone HCl (Desyrel) 50 mg QHSP PRN PO INSOMNIA 10/08/20 13:45 10/08/20 22:39 Allergies Coded Allergies: No Known Allergies (Verified , 10/06/20) DENNY SHAVER DO Oct 11, 2020 09:54
[2020-10-11 16:00] VITALS: BP 146/92
[2020-10-11] MEDS ORDERED: LURASIDONE HCL 40 MG TAB (LATUDA) PO SCH (18:00)
[2020-10-11] MEDS: PRAZOSIN 1 MG CAP PO SCH (21:46)
[2020-10-12 06:42] VITALS: BP 137/68
[2020-10-12] MEDS: LEVOTHYROXINE 50MCG TABLET (0.05MG) PO SCH (06:42)
[2020-10-12] MEDS: hydroCHLOROthiazide 12.5 MG CAPSULE PO SCH (09:40)
[2020-10-12] MEDS: buPROPion **XL** TABLET 150MG (WELLBUTRIN XL) PO SCH (09:40)
--- NOTE | 2020-10-12 12:27 | MHIPNPDOC ---
[facility] Progress Note Progress Note DATE OF SERVICE: 10/12/20 HISTORY: The patient is met with today, she is very guarded and generally doesn't speak much, she says everything is "fine" but does not want to come out of her room generally really dysthymic and disengaged. VITAL SIGNS: See below. NEW TEST RESULTS: N/A CURRENT MEDICATIONS: See below. MENTAL STATUS EXAMINATION: General: Well dressed with good hygiene Speech: Spontaneous and fluid Thought processes: Linear and logical Thought content: guarded Abstract reasoning, and computation: Intact Description of associations: Intact Description of abnormal or psychotic thoughts: none elicited Judgment: poor Insight: poor Orientation: Alert and orientated 3 Recent and remote memory: Intact Attention span and concentration: Intact Fund of knowledge: Adequate Mood: "okay" Affect: dysthymic, constricted DIAGNOSES: 1. MDD, recurrent, severe without psychotic symptoms. 2. PTSD, unspecified ASSESSMENT: Patient's depression appears to predominate at this time. MANAGEMENT PLAN: Continue current home meds of Wellbutrin 450 mg daily of extended release, 10 mg of prazosin nightly Continue Abilify 5 mg nightly, discontinue Latuda at this time. TIME SPENT: 15 minutes. Vital Signs Vital Signs Date Time Temp Pulse Resp B/P (MAP) Pulse Ox O2 Delivery O2 Flow Rate FiO2 10/12/20 06:42 98.3 105 16 137/68 (91) 96 Room Air Current Medications Current Medications Medications (Trade) Dose Ordered Sig/Ashlyn Route PRN Reason Start Time Stop Time Status Last Admin Dose Admin Al Hydrox/Mg Hydrox/Simethicone (Mylanta) 30 ml Q4HP PRN PO HEARTBURN/INDIGESTION 10/08/20 13:45 Aripiprazole (AbiLIFY) 5 mg QHS PO 10/11/20 21:00 10/11/20 21:45 Bupropion HCl (Wellbutrin Xl) 150 mg DAILY PO 10/07/20 09:00 10/08/20 22:36 DC 10/08/20 08:48 Bupropion HCl (Wellbutrin Xl) 150 mg DAILY PO 10/09/20 09:00 Cancel Bupropion HCl (Wellbutrin Xl) 300 mg DAILY PO 10/07/20 09:00 10/08/20 22:36 DC 10/08/20 08:48 Bupropion HCl (Wellbutrin Xl) 300 mg DAILY PO 10/09/20 09:00 10/09/20 09:55 DC Bupropion HCl (Wellbutrin Xl) 450 mg DAILY PO 10/09/20 09:00 10/12/20 09:40 Bupropion HCl (Wellbutrin) 150 mg DAILY PO 10/07/20 09:00 Cancel Home Med (Med Rec Complete!) ASDIRECTED XX 10/07/20 06:30 10/07/20 06:23 DC Hydrochlorothiazide (Hydrodiuril) 12.5 mg DAILY PO 10/09/20 09:00 10/12/20 09:40 Ibuprofen (Advil) 400 mg Q6HP PRN PO PAIN 10/08/20 13:45 Levothyroxine Sodium (Synthroid) 50 mcg DAILY@0600 PO 10/07/20 09:00 10/08/20 13:45 DC 10/08/20 07:34 Levothyroxine Sodium (Synthroid) 50 mcg DAILY@0600 PO 10/09/20 06:00 10/12/20 06:42 Levothyroxine Sodium (Synthroid) 50 mcg DAILY@0600 PO 10/09/20 06:30 UNV [place] Carbonate ([place] Carbonate) 300 mg QHS PO 10/08/20 21:00 10/11/20 12:37 DC 10/10/20 22:19 Lurasidone HCl (Latuda) 60 mg DAILY@18 PO 10/11/20 18:00 10/11/20 18:54 Lurasidone HCl (Latuda) 120 mg DAILY@18 PO 10/09/20 18:00 10/11/20 12:37 DC 10/10/20 17:20 Lurasidone HCl (Latuda) 120 mg QAM@0730 PO 10/09/20 07:30 10/09/20 14:03 DC Magnesium Hydroxide (Milk Of Magnesia) 30 ml DAILYPRN PRN PO CONSTIPATION 10/08/20 13:45 Ondansetron HCl (Zofran Odt) 4 mg Q4HP PRN PO NAUSEA OR VOMITING 10/10/20 14:30 10/10/20 15:21 Prazosin HCl (Minipress) 10 mg QHS PO 10/07/20 21:00 10/08/20 22:32 DC 10/07/20 20:43 Prazosin HCl (Minipress) 10 mg QPM PO 10/08/20 21:00 10/11/20 21:46 Trazodone HCl (Desyrel) 50 mg QHSP PRN PO INSOMNIA 10/08/20 13:45 10/08/20 22:39 Allergies Coded Allergies: No Known Allergies (Verified , 10/06/20) DENNY SHAVER DO Oct 12, 2020 12:27
[2020-10-12 16:17] VITALS: BP 122/63
[2020-10-12] MEDS: PRAZOSIN 1 MG CAP PO SCH (21:21)
[2020-10-13] MEDS: LEVOTHYROXINE 50MCG TABLET (0.05MG) PO SCH (05:39)
[2020-10-13 06:21] VITALS: BP 136/69
[2020-10-13] MEDS: buPROPion **XL** TABLET 150MG (WELLBUTRIN XL) PO SCH (09:12)
[2020-10-13] MEDS: hydroCHLOROthiazide 12.5 MG CAPSULE PO SCH (09:12)
[2020-10-13 16:14] VITALS: BP 137/97
[2020-10-13] MEDS: PRAZOSIN 1 MG CAP PO SCH (20:25)
[2020-10-14] MEDS: LEVOTHYROXINE 50MCG TABLET (0.05MG) PO SCH (05:54)
[2020-10-14 06:34] VITALS: BP 139/95
[2020-10-14] MEDS: buPROPion **XL** TABLET 150MG (WELLBUTRIN XL) PO SCH (09:27)
[2020-10-14] MEDS: hydroCHLOROthiazide 12.5 MG CAPSULE PO SCH (09:27)
--- NOTE | 2020-10-14 10:33 | MHIPNPDOC ---
[facility] Progress Note Progress Note DATE OF SERVICE: 10/14/20 HISTORY: the patient is met with again today, she is still very isolative to her room, she asked about being discharge, but seems fairly depressed and disint erested. When this is discussed, she reports that she is upset about having to go to groups or interact is being a part of the discharge plan. The patient reports that she feels fine on the medication but elaborates very little. VITAL SIGNS: See below. NEW TEST RESULTS: N/A CURRENT MEDICATIONS: See below. MENTAL STATUS EXAMINATION: General: Well dressed with good hygiene Speech: Spontaneous and fluid Thought processes: Linear and logical Thought content: guarded Abstract reasoning, and computation: Intact Description of associations: Intact Description of abnormal or psychotic thoughts: none elicited Judgment: poor Insight: poor Orientation: Alert and orientated 3 Recent and remote memory: Intact Attention span and concentration: Intact Fund of knowledge: Adequate Mood: "okay" Affect: dysthymic, constricted DIAGNOSES: 1. MDD, recurrent, severe without psychotic symptoms. 2. PTSD, unspecified ASSESSMENT: the patient will need to continue on augmented antidepressant, discussed with her about going to groups engaging more as a prerequisite for considering discharge due to her multiple risk factors MANAGEMENT PLAN: Continue current home meds of Wellbutrin 450 mg daily of extended release, 10 mg of prazosin nightly Continue Abilify 5 mg QHS with intention to increase TIME SPENT: 15 minutes. Vital Signs Vital Signs Date Time Temp Pulse Resp B/P (MAP) Pulse Ox O2 Delivery O2 Flow Rate FiO2 10/14/20 06:34 97.5 110 16 139/95 (110) 10/13/20 16:14 98 Room Air Current Medications Current Medications Medications (Trade) Dose Ordered Sig/Ashlyn Route PRN Reason Start Time Stop Time Status Last Admin Dose Admin Al Hydrox/Mg Hydrox/Simethicone (Mylanta) 30 ml Q4HP PRN PO HEARTBURN/INDIGESTION 10/08/20 13:45 Aripiprazole (AbiLIFY) 5 mg QHS PO 10/11/20 21:00 10/13/20 20:25 Bupropion HCl (Wellbutrin Xl) 150 mg DAILY PO 10/07/20 09:00 10/08/20 22:36 DC 10/08/20 08:48 Bupropion HCl (Wellbutrin Xl) 150 mg DAILY PO 10/09/20 09:00 Cancel Bupropion HCl (Wellbutrin Xl) 300 mg DAILY PO 10/07/20 09:00 10/08/20 22:36 DC 10/08/20 08:48 Bupropion HCl (Wellbutrin Xl) 300 mg DAILY PO 10/09/20 09:00 10/09/20 09:55 DC Bupropion HCl (Wellbutrin Xl) 450 mg DAILY PO 10/09/20 09:00 10/14/20 09:27 Bupropion HCl (Wellbutrin) 150 mg DAILY PO 10/07/20 09:00 Cancel Home Med (Med Rec Complete!) ASDIRECTED XX 10/07/20 06:30 10/07/20 06:23 DC Hydrochlorothiazide (Hydrodiuril) 12.5 mg DAILY PO 10/09/20 09:00 10/14/20 09:27 Ibuprofen (Advil) 400 mg Q6HP PRN PO PAIN 10/08/20 13:45 Levothyroxine Sodium (Synthroid) 50 mcg DAILY@0600 PO 10/07/20 09:00 10/08/20 13:45 DC 10/08/20 07:34 Levothyroxine Sodium (Synthroid) 50 mcg DAILY@0600 PO 10/09/20 06:00 10/14/20 05:54 Levothyroxine Sodium (Synthroid) 50 mcg DAILY@0600 PO 10/09/20 06:30 UNV [place] Carbonate ([place] Carbonate) 300 mg QHS PO 10/08/20 21:00 10/11/20 12:37 DC 10/10/20 22:19 Lurasidone HCl (Latuda) 60 mg DAILY@18 PO 10/11/20 18:00 10/12/20 15:01 DC 10/11/20 18:54 Lurasidone HCl (Latuda) 120 mg DAILY@18 PO 10/09/20 18:00 10/11/20 12:37 DC 10/10/20 17:20 Lurasidone HCl (Latuda) 120 mg QAM@0730 PO 10/09/20 07:30 10/09/20 14:03 DC Magnesium Hydroxide (Milk Of Magnesia) 30 ml DAILYPRN PRN PO CONSTIPATION 10/08/20 13:45 Ondansetron HCl (Zofran Odt) 4 mg Q4HP PRN PO NAUSEA OR VOMITING 10/10/20 14:30 10/10/20 15:21 Prazosin HCl (Minipress) 10 mg QHS PO 10/07/20 21:00 10/08/20 22:32 DC 10/07/20 20:43 Prazosin HCl (Minipress) 10 mg QPM PO 10/08/20 21:00 10/13/20 20:25 Trazodone HCl (Desyrel) 50 mg QHSP PRN PO INSOMNIA 10/08/20 13:45 10/08/20 22:39 Allergies Coded Allergies: No Known Allergies (Verified , 10/06/20) DENNY SHAEVR DO Oct 14, 2020 10:33
[2020-10-14 18:00] VITALS: BP 168/81
[2020-10-14] MEDS: PRAZOSIN 1 MG CAP PO SCH (21:56)
[2020-10-15] MEDS: LEVOTHYROXINE 50MCG TABLET (0.05MG) PO SCH (05:46)
[2020-10-15 06:31] VITALS: BP 148/92
[2020-10-15] MEDS: buPROPion **XL** TABLET 150MG (WELLBUTRIN XL) PO SCH (09:03)
[2020-10-15] MEDS: hydroCHLOROthiazide 12.5 MG CAPSULE PO SCH (09:03)
--- NOTE | 2020-10-15 10:43 | MHIPNPDOC ---
[facility] Progress Note Progress Note DATE OF SERVICE: 10/15/20 HISTORY: the patient is met with today, she is still quite depressed and generally does engage much with an interview, she wants to go home but appears quite dysthymic and disengaged. She generally denies any signs of depression, despite appearing quite depressed. She reports that she finds it unusual she would need to attend groups and engage with treatment in order to be considered for discharge. She denies any side effects from her medications. VITAL SIGNS: See below. NEW TEST RESULTS: N/A CURRENT MEDICATIONS: See below. MENTAL STATUS EXAMINATION: General: Well dressed with good hygiene Speech: Spontaneous and fluid Thought processes: Linear and logical Thought content: guarded Abstract reasoning, and computation: Intact Description of associations: Intact Description of abnormal or psychotic thoughts: none elicited, continues to denies suicidal ideation Judgment: poor Insight: poor Orientation: Alert and orientated 3 Recent and remote memory: Intact Attention span and concentration: Intact Fund of knowledge: Adequate Mood: "okay" Affect: dysthymic, constricted DIAGNOSES: 1. MDD, recurrent, severe without psychotic symptoms. 2. PTSD, unspecified ASSESSMENT: the patient is likely still very depressed, given her significant history of overdose and her own admission that she will attempt to hide any significance suicidality, will continue to retain patient for treatment MANAGEMENT PLAN: Continue current home meds of Wellbutrin 450 mg daily of extended release, 10 mg of prazosin nightly Continue Abilify 5 mg QHS with intention to increase to 10 mg TIME SPENT: 15 minutes. Vital Signs Vital Signs Date Time Temp Pulse Resp B/P (MAP) Pulse Ox O2 Delivery O2 Flow Rate FiO2 10/15/20 06:31 99.4 108 18 148/92 (110) 10/13/20 16:14 98 Room Air Current Medications Current Medications Medications (Trade) Dose Ordered Sig/Ashlyn Route PRN Reason Start Time Stop Time Status Last Admin Dose Admin Al Hydrox/Mg Hydrox/Simethicone (Mylanta) 30 ml Q4HP PRN PO HEARTBURN/INDIGESTION 10/08/20 13:45 Aripiprazole (AbiLIFY) 5 mg QHS PO 10/11/20 21:00 10/14/20 21:55 Bupropion HCl (Wellbutrin Xl) 150 mg DAILY PO 10/07/20 09:00 10/08/20 22:36 DC 10/08/20 08:48 Bupropion HCl (Wellbutrin Xl) 150 mg DAILY PO 10/09/20 09:00 Cancel Bupropion HCl (Wellbutrin Xl) 300 mg DAILY PO 10/07/20 09:00 10/08/20 22:36 DC 10/08/20 08:48 Bupropion HCl (Wellbutrin Xl) 300 mg DAILY PO 10/09/20 09:00 10/09/20 09:55 DC Bupropion HCl (Wellbutrin Xl) 450 mg DAILY PO 10/09/20 09:00 10/15/20 09:03 Bupropion HCl (Wellbutrin) 150 mg DAILY PO 10/07/20 09:00 Cancel Home Med (Med Rec Complete!) ASDIRECTED XX 10/07/20 06:30 10/07/20 06:23 DC Hydrochlorothiazide (Hydrodiuril) 12.5 mg DAILY PO 10/09/20 09:00 10/15/20 09:03 Ibuprofen (Advil) 400 mg Q6HP PRN PO PAIN 10/08/20 13:45 Levothyroxine Sodium (Synthroid) 50 mcg DAILY@0600 PO 10/07/20 09:00 10/08/20 13:45 DC 10/08/20 07:34 Levothyroxine Sodium (Synthroid) 50 mcg DAILY@0600 PO 10/09/20 06:00 10/15/20 05:46 Levothyroxine Sodium (Synthroid) 50 mcg DAILY@0600 PO 10/09/20 06:30 UNV [place] Carbonate ([place] Carbonate) 300 mg QHS PO 10/08/20 21:00 10/11/20 12:37 DC 10/10/20 22:19 Lurasidone HCl (Latuda) 60 mg DAILY@18 PO 10/11/20 18:00 10/12/20 15:01 DC 10/11/20 18:54 Lurasidone HCl (Latuda) 120 mg DAILY@18 PO 10/09/20 18:00 10/11/20 12:37 DC 10/10/20 17:20 Lurasidone HCl (Latuda) 120 mg QAM@0730 PO 10/09/20 07:30 10/09/20 14:03 DC Magnesium Hydroxide (Milk Of Magnesia) 30 ml DAILYPRN PRN PO CONSTIPATION 10/08/20 13:45 Ondansetron HCl (Zofran Odt) 4 mg Q4HP PRN PO NAUSEA OR VOMITING 10/10/20 14:30 10/10/20 15:21 Prazosin HCl (Minipress) 10 mg QHS PO 10/07/20 21:00 10/08/20 22:32 DC 10/07/20 20:43 Prazosin HCl (Minipress) 10 mg QPM PO 10/08/20 21:00 10/14/20 21:56 Trazodone HCl (Desyrel) 50 mg QHSP PRN PO INSOMNIA 10/08/20 13:45 10/08/20 22:39 Allergies Coded Allergies: No Known Allergies (Verified , 10/06/20) DENNY SHAVER DO Oct 15, 2020 10:43
[2020-10-15] MEDS: PRAZOSIN 1 MG CAP PO SCH (21:41)
[2020-10-16] MEDS: LEVOTHYROXINE 50MCG TABLET (0.05MG) PO SCH (06:36)
[2020-10-16 06:37] VITALS: BP 132/77
[2020-10-16] MEDS: buPROPion **XL** TABLET 150MG (WELLBUTRIN XL) PO SCH (08:26)
[2020-10-16] MEDS: hydroCHLOROthiazide 12.5 MG CAPSULE PO SCH (08:26)
--- NOTE | 2020-10-16 10:03 | MHIPNPDOC ---
[facility] Progress Note Progress Note DATE OF SERVICE: 10/16/20 HISTORY: the patient remains fairly depressed, she has gotten up later in the day and become little more active, she still appears quite depressed, although s he denies a significant depression or suicidal thoughts. She reports medication hasn't had any negative effects and that it's "helpful, which he doesn't elaborate much refusing to meet with her nurse today. She's fairly ambivalent about talking to me at any great length. So reports that she wants to go home. VITAL SIGNS: See below. NEW TEST RESULTS: N/A CURRENT MEDICATIONS: See below. MENTAL STATUS EXAMINATION: General: Well dressed with good hygiene Speech: Spontaneous and fluid Thought processes: Linear and logical Thought content: guarded Abstract reasoning, and computation: Intact Description of associations: Intact Description of abnormal or psychotic thoughts: none elicited, continues to denies suicidal ideation Judgment: poor Insight: poor Orientation: Alert and orientated 3 Recent and remote memory: Intact Attention span and concentration: Intact Fund of knowledge: Adequate Mood: "okay" Affect: dysthymic, constricted DIAGNOSES: 1. MDD, recurrent, severe without psychotic symptoms. 2. PTSD, unspecified ASSESSMENT: will continue titration of medications, still needs continued treatment for depression MANAGEMENT PLAN: Continue current home meds of Wellbutrin 450 mg daily of extended release, 10 mg of prazosin nightly Increase Abilify to 10 mg QHS TIME SPENT: 15 minutes. Vital Signs Vital Signs Date Time Temp Pulse Resp B/P (MAP) Pulse Ox O2 Delivery O2 Flow Rate FiO2 10/16/20 06:37 98.4 108 18 132/77 (95) 10/13/20 16:14 98 Room Air Current Medications Current Medications Medications (Trade) Dose Ordered Sig/Ashlyn Route PRN Reason Start Time Stop Time Status Last Admin Dose Admin Al Hydrox/Mg Hydrox/Simethicone (Mylanta) 30 ml Q4HP PRN PO HEARTBURN/INDIGESTION 10/08/20 13:45 Aripiprazole (AbiLIFY) 5 mg QHS PO 10/11/20 21:00 10/15/20 21:41 Bupropion HCl (Wellbutrin Xl) 150 mg DAILY PO 10/07/20 09:00 10/08/20 22:36 DC 10/08/20 08:48 Bupropion HCl (Wellbutrin Xl) 150 mg DAILY PO 10/09/20 09:00 Cancel Bupropion HCl (Wellbutrin Xl) 300 mg DAILY PO 10/07/20 09:00 10/08/20 22:36 DC 10/08/20 08:48 Bupropion HCl (Wellbutrin Xl) 300 mg DAILY PO 10/09/20 09:00 10/09/20 09:55 DC Bupropion HCl (Wellbutrin Xl) 450 mg DAILY PO 10/09/20 09:00 10/16/20 08:26 Bupropion HCl (Wellbutrin) 150 mg DAILY PO 10/07/20 09:00 Cancel Home Med (Med Rec Complete!) ASDIRECTED XX 10/07/20 06:30 10/07/20 06:23 DC Hydrochlorothiazide (Hydrodiuril) 12.5 mg DAILY PO 10/09/20 09:00 10/16/20 08:26 Ibuprofen (Advil) 400 mg Q6HP PRN PO PAIN 10/08/20 13:45 Levothyroxine Sodium (Synthroid) 50 mcg DAILY@0600 PO 10/07/20 09:00 10/08/20 13:45 DC 10/08/20 07:34 Levothyroxine Sodium (Synthroid) 50 mcg DAILY@0600 PO 10/09/20 06:00 10/16/20 06:36 Levothyroxine Sodium (Synthroid) 50 mcg DAILY@0600 PO 10/09/20 06:30 UNV [place] Carbonate ([place] Carbonate) 300 mg QHS PO 10/08/20 21:00 10/11/20 12:37 DC 10/10/20 22:19 Lurasidone HCl (Latuda) 60 mg DAILY@18 PO 10/11/20 18:00 10/12/20 15:01 DC 10/11/20 18:54 Lurasidone HCl (Latuda) 120 mg DAILY@18 PO 10/09/20 18:00 10/11/20 12:37 DC 10/10/20 17:20 Lurasidone HCl (Latuda) 120 mg QAM@0730 PO 10/09/20 07:30 10/09/20 14:03 DC Magnesium Hydroxide (Milk Of Magnesia) 30 ml DAILYPRN PRN PO CONSTIPATION 10/08/20 13:45 Ondansetron HCl (Zofran Odt) 4 mg Q4HP PRN PO NAUSEA OR VOMITING 10/10/20 14:30 10/10/20 15:21 Prazosin HCl (Minipress) 10 mg QHS PO 10/07/20 21:00 10/08/20 22:32 DC 10/07/20 20:43 Prazosin HCl (Minipress) 10 mg QPM PO 10/08/20 21:00 10/15/20 21:41 Trazodone HCl (Desyrel) 50 mg QHSP PRN PO INSOMNIA 10/08/20 13:45 10/08/20 22:39 Allergies Coded Allergies: No Known Allergies (Verified , 10/06/20) DENNY SHAVER DO Oct 16, 2020 10:03
[2020-10-16 19:57] VITALS: BP 110/63
[2020-10-16] MEDS: PRAZOSIN 1 MG CAP PO SCH (21:39)
[2020-10-16] MEDS ORDERED: OLANZapine ORAL DISINTEGRATING TAB 5MG PO PRN (22:00)
[2020-10-17] MEDS: LEVOTHYROXINE 50MCG TABLET (0.05MG) PO SCH (05:44)
[2020-10-17 06:42] VITALS: BP 139/80
[2020-10-17] MEDS: buPROPion **XL** TABLET 150MG (WELLBUTRIN XL) PO SCH (09:00)
[2020-10-17] MEDS: hydroCHLOROthiazide 12.5 MG CAPSULE PO SCH (09:00)
--- NOTE | 2020-10-17 10:46 | MHIPNPDOC ---
[facility] Progress Note Progress Note DATE OF SERVICE: 10/17/20 HISTORY: the patient is met with today, she reports she is doing better she hasn't had any significant suicidal thoughts and reports that she is generally improving. She has been bathing and taking care of herself better interacting going to groups, she's much more interactive and open during discussion today. Nursing had been concerned that she might and purging, however she disputes is saying that she'd eaten too fast and became nauseous. VITAL SIGNS: See below. NEW TEST RESULTS: N/A CURRENT MEDICATIONS: See below. MENTAL STATUS EXAMINATION: General: Well dressed with good hygiene Speech: Spontaneous and fluid Thought processes: Linear and logical Thought content: Future orientated Abstract reasoning, and computation: Intact Description of associations: Intact Description of abnormal or psychotic thoughts: denies SI/HI/AVH Judgment: improved Insight: improved Orientation: Alert and orientated 3 Recent and remote memory: Intact Attention span and concentration: Intact Fund of knowledge: Adequate Mood: "okay" Affect: euthymic DIAGNOSES: 1. MDD, recurrent, severe without psychotic symptoms. 2. PTSD, unspecified ASSESSMENT: could be possibly ready for depression with another night of observation MANAGEMENT PLAN: Continue current home meds of Wellbutrin 450 mg daily of extended release, 10 mg of prazosin nightly Continue Abilify to 10 mg QHS TIME SPENT: 15 minutes. Vital Signs Vital Signs Date Time Temp Pulse Resp B/P (MAP) Pulse Ox O2 Delivery O2 Flow Rate FiO2 10/17/20 06:42 98.9 102 18 139/80 (99) 96 Room Air Current Medications Current Medications Medications (Trade) Dose Ordered Sig/Ashlyn Route PRN Reason Start Time Stop Time Status Last Admin Dose Admin Al Hydrox/Mg Hydrox/Simethicone (Mylanta) 30 ml Q4HP PRN PO HEARTBURN/INDIGESTION 10/08/20 13:45 Aripiprazole (AbiLIFY) 5 mg QHS PO 10/11/20 21:00 10/16/20 12:54 DC 10/15/20 21:41 Aripiprazole (AbiLIFY) 10 mg QHS PO 10/16/20 21:00 10/16/20 21:38 Bupropion HCl (Wellbutrin Xl) 150 mg DAILY PO 10/07/20 09:00 10/08/20 22:36 DC 10/08/20 08:48 Bupropion HCl (Wellbutrin Xl) 150 mg DAILY PO 10/09/20 09:00 Cancel Bupropion HCl (Wellbutrin Xl) 300 mg DAILY PO 10/07/20 09:00 10/08/20 22:36 DC 10/08/20 08:48 Bupropion HCl (Wellbutrin Xl) 300 mg DAILY PO 10/09/20 09:00 10/09/20 09:55 DC Bupropion HCl (Wellbutrin Xl) 450 mg DAILY PO 10/09/20 09:00 10/16/20 08:26 Bupropion HCl (Wellbutrin) 150 mg DAILY PO 10/07/20 09:00 Cancel Home Med (Med Rec Complete!) ASDIRECTED XX 10/07/20 06:30 10/07/20 06:23 DC Hydrochlorothiazide (Hydrodiuril) 12.5 mg DAILY PO 10/09/20 09:00 10/16/20 08:26 Ibuprofen (Advil) 400 mg Q6HP PRN PO PAIN 10/08/20 13:45 Levothyroxine Sodium (Synthroid) 50 mcg DAILY@0600 PO 10/07/20 09:00 10/08/20 13:45 DC 10/08/20 07:34 Levothyroxine Sodium (Synthroid) 50 mcg DAILY@0600 PO 10/09/20 06:00 10/17/20 05:44 Levothyroxine Sodium (Synthroid) 50 mcg DAILY@0600 PO 10/09/20 06:30 UNV [place] Carbonate ([place] Carbonate) 300 mg QHS PO 10/08/20 21:00 10/11/20 12:37 DC 10/10/20 22:19 Lurasidone HCl (Latuda) 60 mg DAILY@18 PO 10/11/20 18:00 10/12/20 15:01 DC 10/11/20 18:54 Lurasidone HCl (Latuda) 120 mg DAILY@18 PO 10/09/20 18:00 10/11/20 12:37 DC 10/10/20 17:20 Lurasidone HCl (Latuda) 120 mg QAM@0730 PO 10/09/20 07:30 10/09/20 14:03 DC Magnesium Hydroxide (Milk Of Magnesia) 30 ml DAILYPRN PRN PO CONSTIPATION 10/08/20 13:45 Olanzapine (ZyPREXA ZYDIS) 5 mg Q6HP PRN PO ANXIETY/AGITATION 10/16/20 22:00 Ondansetron HCl (Zofran Odt) 4 mg Q4HP PRN PO NAUSEA OR VOMITING 10/10/20 14:30 10/10/20 15:21 Prazosin HCl (Minipress) 10 mg QHS PO 10/07/20 21:00 10/08/20 22:32 DC 10/07/20 20:43 Prazosin HCl (Minipress) 10 mg QPM PO 10/08/20 21:00 10/16/20 21:39 Trazodone HCl (Desyrel) 50 mg QHSP PRN PO INSOMNIA 10/08/20 13:45 10/08/20 22:39 Allergies Coded Allergies: No Known Allergies (Verified , 10/06/20) DENNY SHAVER DO Oct 17, 2020 10:46
[2020-10-17 17:04] VITALS: BP 140/80
[2020-10-17 20:22] VITALS: BP 142/82
[2020-10-17] MEDS: PRAZOSIN 1 MG CAP PO SCH (20:22)
[2020-10-17] MEDS: traZODone 50 MG TAB PO PRN (20:40)
[2020-10-18] MEDS: LEVOTHYROXINE 50MCG TABLET (0.05MG) PO SCH (05:55)
[2020-10-18 06:24] VITALS: BP 126/66
[2020-10-18] MEDS: buPROPion **XL** TABLET 150MG (WELLBUTRIN XL) PO SCH (08:11)
[2020-10-18] MEDS: hydroCHLOROthiazide 12.5 MG CAPSULE PO SCH (08:12)
--- NOTE | 2020-10-18 09:47 | MHDSPDOC ---
[facility] Discharge Summary Discharge Summary DATE OF ADMISSION: Oct 08, 2020 at 13:36 DATE OF DISCHARGE: DISCHARGE DIAGNOSES: 1. . 2. . REASON FOR ADMISSION: CONSULTANTS INVOLVED: TREATMENT AND PROGRESS ON THE UNIT : . HOSPITAL COURSE: DISCHARGE ASSESSMENT: MENTAL STATUS EXAMINATION ON DISCHARGE: Patient is a -year old female, who is . Speech is . Language skills are . Thought processes including: . Thought content: . Abstract reasoning, and computation: . Description of associations: . Description of abnormal or psychotic thoughts: . Judgment: . Insight: . Orientation to . Recent and remote memory: . Attention span and concentration: . Language: . Fund of knowledge: . Mood: . Affect: . MEDICATIONS ON DISCHARGE: - for . - for . - for . PLAN/FOLLOWUP ARRANGEMENTS: . The amount of time spent in the coordination of care for this patient was approximately minutes. Vital Signs/I&Os Vital Signs Date Time Temp Pulse Resp B/P (MAP) Pulse Ox O2 Delivery O2 Flow Rate FiO2 10/18/20 06:24 98.3 106 16 126/66 (86) 97 Room Air Medications Scheduled Aripiprazole (Aripiprazole) 10 Mg Tablet, 1 TAB PO DAILY for mood for 7 Days, #7 Bupropion HCl (Bupropion Xl) 300 Mg Tab.er.24h, 300 MG PO DAILY, (Reported) Bupropion Hcl (Bupropion Xl) 150 Mg Tab.er.24h, 150 MG PO DAILY, (Reported) Hydrochlorothiazide (Hydrochlorothiazide) 12.5 Mg Tablet, 12.5 MG PO DAILY, (Reported) Levothyroxine Sodium (Levothyroxine Sodium) 50 Mcg Tablet, 50 MCG PO QAM, (Reported) Norgestimate-Ethinyl Estradiol (Tri-Lo-Yamilex Tablet) 1 Each Tablet, 1 TAB PO DAILY, (Reported) Prazosin Hcl (Prazosin HCl) 5 Mg Capsule, 10 MG PO QPM, (Reported) Miscellaneous Medications [Med Rec Comment] , (Reported) PATIENT UNABLE TO VERIFY STRENGTHS OF MEDICATIONS AND LAST DOSE USED EXTERNAL AND CALLED PHARMACY ([facility]) TO VERIFY. Allergies Coded Allergies: No Known Allergies (Verified , 10/06/20) DENNY SHAVER DO Oct 18, 2020 09:47
[2020-10-18] MEDS ORDERED: ARIP1TAB PO (09:59)
== END 2020-10-18 11:30 | disposition home or self-care (01) | DRG 751 ==
LOC: M ED 22:26 → M ED INP 10-08 13:36 → M PSY 10-08 14:10
PROVIDERS: ADMIT Psychiatry & Neurology Addiction Medicine; ATTEND Psychiatry & Neurology Addiction Medicine
DX: F33.2 Major depressive disorder, recurrent severe without psychotic features (principal); R45.851 Suicidal ideations; F43.10 Post-traumatic stress disorder, unspecified; I10 Essential (primary) hypertension; E03.9 Hypothyroidism, unspecified; D72.829 Elevated white blood cell count, unspecified; K59.09 Other constipation; E55.9 Vitamin D deficiency, unspecified; E66.01 Morbid (severe) obesity due to excess calories; Z68.44 Body mass index [BMI] 60.0-69.9, adult; Z79.899 Other long term (current) drug therapy

== ENCOUNTER 2020-12-30 01:02 | Inpatient (IN) | payer MEDICAID, OTHER ==
[~2020-12-30] VITALS: Ht 160 cm; Wt 158.6 kg
[~2020-12-30 01:02] MED LIST changes: +ARIP1TAB PO; -BUPR150T3 PO; +BUPR150T4 PO; -ESCI20TA; +ESCI20TA16; +HYDR-3490; +HYDR12.55 PO; -HYDR25TAB; +LATU120T PO; +MED REC COMMENT; +NORG1TAB33 PO
--- OUTSIDE RECORDS SUMMARY | 2020-12-30 01:13 | CCD ---
Author Author Meghan Hernandes Organization Unknown Address [address] [address] Phone Care Team Providers [facility] Dedicated Truck Driver Name Role Phone Eugenio Hernandes PCP Allergies, Adverse Reactions, Alerts Concept Allergy Name Reaction Severity Onset Date Status Documentation Date Phone Number Npid Taxonomy Code Taxonomy Desc Author Last Name Author Fi rst Name Concept Type 772489 Ambien (zolpidem) Too sedated in the morning 03/17 Active 03/17/2019 [id number] Licensed Practical Nurse Rory Bae RXNORM Problem List Concept Problem Description Status Start Date Created Date Resolv ed Date Snomed Code F43.12 Post-traumatic stress disorder, chronic Active 09/20/2017 09/20/2017 F31.9 Unspecified Bipolar and Related Disorder Active 6 06/23/2016 Medications Rx Norm Medication Route Route Concept Start Date Stop Date Dosage Quan quency Duration Formula Strength Dosage Form Dosage Form Code Dosage Description Medication Id Account Npid Author First Name Author Last Name Taxonomy Code Taxonomy Desc Phone Number [id number] Ambien 10/27/2019 at bedtime 5 mg tablet 24654 [id number] Saumya Don [id number] Psychiatric/Mental Health [phone] [id number] Latuda 02/23/2020 30 20 mg tablet 40966 [phone] Saumya Arian [id number] Psychiatric/Mental Health [phone] 093932 bupropion HCl by mouth [id number] 08/15/2020 once a day 150 mg tablet extended release 24 hr 39356 150762 [id number] Devin Hoskins [id number] Psychiatry [phone] 505199 lithium carbonate by mouth [id number] 08/15/2020 at bedtime 300 mg capsule 25572 715687 [id number] Devin Hoskins [id number] [facility] [id number] Social History Social History Element Description Concept Effective Date Smoking Status Unknown if ever smoked [id number] 14061101 Immunizations No Data in Section Vital Signs No Data in Section Procedures Date Concept Id Description Targeted Site Concept Targeted Site Concept Type 11/18/2020 60469 Extended Individual Psychotherapy - 45 min CPT Patient has no history of implantable de vices Encounters Encounter Start Date End Date Encounter Type Description Diagnosis Di agnosis Desc Location Author First Name Author Last Name Npid Taxonomy Cod e Taxonomy Desc Phone Number Location Addr1 Location Addr2 Location City Location [place] Location Zip [id number] 11/18/2020 11/18/2020 08383 Extended Individual Psych otherapy - 45 min F43.12 Post-traumatic stress disorder, chronic Community Clin [facility] [id number] Screen Printing 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
--- OUTSIDE RECORDS SUMMARY | 2020-12-30 01:13 | CCD ---
Author Author Arian Meghan Saumya Organization Unknown Address [address] [place] [address] Phone Care Team Providers Care Plywood Patcher Name Role Phone Paul Donney PCP Allergies, Adverse Reactions, Alerts Concept Allergy Name Reaction Severity Onset Date Status Documentation Date Phone Number Npid Taxonomy Code Taxonomy Desc Author Last Name Author Fi rst Name Concept Type 683513 Ambien (zolpidem) Too sedated in the morning 03/17 Active 03/17/2019 [id number] [id number] Licensed Practical Nurse Rory Bae RXNORM Problem [...] Name Taxonomy Code Taxonomy Desc Phone Number 006506 Ambien 10/27/2019 at bedtime 5 mg tablet 83332 018201 [phone] Saumyaester Don [id number] Psychiatric/Mental Health [phone] Latuda 02/23/2020 30 20 mg tablet 26954 103 [phone] Saumyaanthony Don [id number] Psychiatric/Mental Health 951904 3723 136217 bupropion HCl by mouth K53536 08/15/2020 once a day 150 mg tablet extended release 24 hr 79024 232872 [id number] Devin Hoskins [id number] Psychiatry [phone] 895156 lithium carbonate by mouth S22315 08/15/2020 at bedtime 300 mg capsule 26344 724249 [id number] Devin Hoskins [id number] [facility] [id number] Social History Social History Element Description Concept Effective Date Smoking Status Unknown if ever smoked [id number] Immunizations No Data in Section Vital Signs Encounter Date Height Ins Weight Lbs Bmi Bp Systolic Bp Diastoli c Oxygen Saturation Respiration Rate Pulse Rate Body Temp Head Circumference Heigh t Lying 11/06/2020 0.00 0.00 0.00 0 0 0.00 0 0 0.00 0.0 0.0 0 Procedures Date Concept Id Description Targeted Site Concept Targeted Site Concept Type 11/06/2020 56172 E/M Level 3 - Established Patient CPT 11/06/2020 25971 Psychotherapy ADD ON - 30 Minutes CPT Patient has no history of implantable de vices Encounters Encounter Start Date End Date Encounter Type Description Diagnosis Di agnosis Desc Location Author First Name Author Last Name Npid Taxonomy Cod e Taxonomy Desc Phone Number Location Addr1 Location Addr2 Location [facility] Location Sta te Location Zip [id number] 11/06/2020 11/06/2020 45201 E/M Level 3 - Established [facility] F43.12 Post-traumatic stress disorder, chronic Community [facility] [phone] [id number] Psychiatric/Mental Health [phone] [address] [address] Plan of Treatment No Data in Section Lab Results No Data in Section Instructions No Data in Section Functional Cognitive Status No Data in Section Insurance Providers Insurance Id Policy Effective Date Policy Thru Date Izzui N cesar [id number] 2019 [employer] Managed Teresa barnes
--- OUTSIDE RECORDS SUMMARY | 2020-12-30 01:13 | CCD ---
Author Author [facility] Organization [facility] Address Unknown Phone Unavailable Care Team Providers Care Safety Pin Assembling Machine Operator Name Role Phone Christiane Hernandez Unavailable PROBLEMS Type Condition ICD9-CM Code LPH62-VD Code Onset Dates Condition S tatus SNOMED Code Notes Problem Other hyperlipidemia E78.4 Active 21121316 Problem Personal history of urinary (tract) infections Z87 .440 Active 6871891635264 Problem Major depressive disorder, single episode, unspecified F32.9 Active 67366087 Problem Morbid (severe) obesity due to excess calories E66 .01 Active 507198367 Problem Acanthosis nigricans L83 Active 060112606 Problem Irregular menstrual cycle N92.6 Active 198326 07 Problem Irregular menses N92.6 Active 86152605 Problem Borderline personality disorder F60.3 Active 26855200 Problem Bipolar 1 disorder F31.9 Active 329829043 Problem Hypothyroidism, unspecified type E03.9 Active 19042022 Problem Mixed hyperlipidemia E78.2 Active 748153972 Problem Vitamin D deficiency E55.9 Active 35418080 Problem Bipolar disorder, current ep isode depressed, severe, without psychotic features F31.4 Active 830944029 Problem Hypercalcemia E83.52 Active 70973086 Problem PTSD (post-traumatic stress disorder) F43.10 Ac tive 86371427 Problem Leukocytosis, unspecified type D72.829 Active 1 51472901 ALLERGIES No Known Allergies ENCOUNTERS from 1999 to 2020-11-04 Encounter Location Date Provider Diagnosis [id number] [place] [address] Oct, Christianemichaela Fontanezon IMMUNIZATIONS Vaccine Route Administration Date Status Influenza (6mo & up) Fluzone Unknown January 22, 2017 Ref used SOCIAL HISTORY Tobacco Use: Social History Observation Description Date Details (start date - stop date) Never Smoker Sex Assigned At : Social History Observation Description Sex Assigned At Unknown Education: Question Answer Notes Level of Education: Not finished High School Audit Question Answer Notes Total Score: 0 Interpretation: Alcohol Education Quaker: Question Answer Notes Quaker 33 None Sexual Hx: Question Answer Notes Had sex in the last 12 months (vaginal, oral, or anal)? Yes LMP: 2017 Have you ever had an STD? No Prevention Strategies discussed: Other with Men only Use protection? No Drug and Alcohol Question Answer Notes Total Score: 0 Interpretation: No problems reported Alcohol Screening: Question Answer Notes Did you have a drink containing alcohol in the past year? No Points 0 Interpretation Negative BMI Care Goal Follow-Up Question Answer Notes Above Normal BMI Follow-Up Dietary management educatio n, guidance, and counseling Tobacco Use: Question Answer Notes Are you a: never smoker never smoker REASON FOR REFERRAL No Information VITAL SIGNS No information MEDICATIONS Medication SIG (Take, Route, Frequency, Duration) Notes Start Da te End Date Status [place] Carbonate 300 MG 1 capsule at bedtime Orally Once a day for 30 day(s) Active Latuda 120 MG 1 tablet with food Orally Once a day Active Zolpidem Tartrate 10 MG (Schedule IV Drug) TAKE 1 ta bBY MOUTH AT BEDTIME MAXIMUM DAILY DOSE 1 Orally Not-Taking Nystatin 181990 UNIT/GM 1 application to affected ar ea Externally Twice a day for 30 Active BuPROPion HCl ER (XL) 300 MG TAKE ONE TABLET BY MOUTH EVERY MORNING WITH 300MG TO EQUAL 450MG Orally Once a day Active Prazosin HCl 5 MG 2 caps Orally hs A ctive Vitamin D 1000 UNIT 1 tablet Orally Once a day for 30 day(s) Active Levothyroxine Sodium 50 MCG 1 tablet on an empty stoma ch in the morning Orally Once a day for 30 Days Feb, Active BuPROPion HCl ER (SR) 150 MG 2 tablets in the morning Orally Once a d ay Not-Taking Hydrochlorothiazide 12.5 MG 1 tablet in the morning Or ally Once a day for 30 day(s) Aug, Active Ortho-Cyclen (28) 0.25-35 MG-MCG TAKE ONE TABLET BY MOUTH EVERY DAY for 28 Not-Taking Ortho Tri-Cyclen Lo 0.18/0.215/0.25 MG-25 MCG 1 tablet Orally Once a day for 28 day(s) Aug, Active PROCEDURES No Information RESULTS No Results REASON FOR VISIT med changes MEDICAL (GENERAL) HISTORY Type Description Date Medical History Bipolar DO/PTSD/borderlin pe rsonality DO - Brisa at [facility]; Shai at [facility] is therapist Medical History Intentional overdose 03/16/18 Medical History Insomnia Medical History Hypertension Medical History Frequent UTI's, had cystoscopy with urol ogist in [place] Medical History Irregular menses Medical History Acanthosis nigricans Medical History Hypothyroidism Medical History h/o SI - Suicide attempt, OD with pills Medical History self cutting Surgical History salpingo-oophorectomy right 2011 Surgical History appendectomy Hospitalization History psychiatric treatment in [place] 07/28-07/29 Hospitalization History [facility] - psychiatric treatment 11/28-09/29 Hospitalization History [facility], Hospitalization History Intentional overdose of psyc hiatric meds - [facility] ICU, then [facility]18 Hospitalization History [facility] 10 day stay, 05/08-05/17/18 [facility] Hospitalization History [facility]- s uicidial 09/2018 Hospitalization History [facility] intentional overdose of ps ychiatric meds 11/19-11/21/18 Hospitalization History [place], Suicidial thoughts 01/12/19- Goals Section No Information Health Concerns No Information MEDICAL EQUIPMENT No Information MENTAL STATUS No Information FUNCTIONAL STATUS No Information ASSESSMENTS No Information PLAN OF TREATMENT Medication Medication Name Sig Start Date Stop Date Ortho Tri-Cyclen Lo 0.18/0.215/0.25 MG-25 MCG 1 tablet Orally Once a day for 28 day(s) Aug, Hydrochlorothiazide 12.5 MG 1 tablet in the morning Or ally Once a day for 30 day(s) Aug, Nystatin 721806 UNIT/GM 1 application to affected ar ea Externally Twice a day for 30 Next Appt Details Provider Name:Christiane Hernandez, 2020-11-26 08 :45:00 AM, [address] [place] [address], [phone], Provider Name:Christiane Hernandez, 2020-12-17 02 :00:00 PM, [address] [place] [address], [phone], Insurance Providers Payer Name Payer Address Payer Phone Insured Name Patient Relati onship to Insured Coverage Start Date Coverage End Date [facility] [address] [facility] [phone] CHRIS ZAVALA self
--- OUTSIDE RECORDS SUMMARY | 2020-12-30 01:13 | CCD ---
Author Author Meghan Hernandes Organization Unknown Address [address] [address] Phone Care Team Providers Care Raw Shellfish Preparer Name Role Phone Eugenio Hernandes PCP Allergies, Adverse Reactions, Alerts Concept Allergy Name Reaction Severity Onset Date Status Documentation Date Phone Number Npid Taxonomy Code Taxonomy Desc Author Last Name Author Fi rst Name Concept Type 588036 Ambien (zolpidem) Too sedated in the morning 03/17 Active 03/17/2019 [id number] Licensed Practical Nurse Rory Bae RXNORM Problem [...] Name Taxonomy Code Taxonomy Desc Phone Number [id number] Latuda 02/23/2020 30 20 mg tablet 20788 103 510 [phone] Saumya Don [id number] Psychiatric/Mental Health 881506 9998 156314 lithium carbonate by mouth U76250 08/15/2020 at bedtime 300 mg capsule 31199 120923 [id number] Devin Ulberg [id number] Psychiat ry 0782606912 086199 bupropion HCl by mouth A03247 08/15/2020 once a day 150 mg tablet extended release 24 hr 09958 791757 [id number] Devin Hoskins [id number] Psychiatry 0600353274 012023 Ambien 10/27/2019 at bedtime 5 mg tablet 30421 121983 [phone] Saumya Don [id number] Psychiatric/Mental Health 31 [phone] Social History Social History Element Description Concept Effective Date Smoking Status Unknown if ever smoked [id number] Immunizations No Data in Section Vital Signs No Data in Section Procedures Date Concept Id Description Targeted Site Concept Targeted Site Concept Type 10/21/2020 91139 Extended Individual Psychotherapy - 45 min CPT Patient has no history of implantable de vices Encounters Encounter Start Date End Date Encounter Type Description Diagnosis Di agnosis Desc Location Author First Name Author Last Name Npid Taxonomy Cod e Taxonomy Desc Phone Number Location Addr1 Location Addr2 [address] [facility] Location [place] [id number] 10/21/2020 10/21/2020 68999 Extended Individual Psych otherapy - 45 min F43.12 Post-traumatic stress disorder, chronic [facility] [id number] Web Marketing Assistant [phone] [address] [address] Plan of Treatment No Data in Section Lab Results No Data in Section Instructions No Data in Section Insurance Providers Insurance Id Policy Effective Date Policy Thru Date [employer] Mayra guerrero [id number] 2019 [employer] Managed Teresa barnes
--- OUTSIDE RECORDS SUMMARY | 2020-12-30 01:13 | CCD ---
Author Author Meghan Don Organization Unknown Address [address] [address] Phone Care Team Providers Care Public Information Relations Manager Name Role Phone Garretson, Saumya PCP Allergies, Adverse Reactions, Alerts Concept Allergy Name Reaction Severity Onset Date Status Documentation Date Phone Number Npid Taxonomy Code Taxonomy Desc Author Last Name Author Fi rst Name Concept Type 129469 Ambien (zolpidem) Too sedated in the morning 03/17 Active 03/17/2019 [id number] Licensed Practical Nurse Rory Bae RXNORM Problem [...] Name Taxonomy Code Taxonomy Desc Phone Number [id number] bupropion HCl by mouth G11438 08/15/2020 once a day 150 mg tablet extended release 24 hr 37723 304468 [phone] Saumya brooks [id number] Psychiatric/Mental Health [phone] 258729 prazosin by mouth U18745 11/06/2020 at bedtime 5 mg capsul e 63143 583884 [id number] Maricruz Vizcarra [id number] Nurse Practitioner [phone] 271547 bupropion HCl by mouth N06717 11/06/2020 every morning 300 mg tablet extended release 24 hr 56863 095930 [id number] Saumya brooks [id number] Psychiatric/Mental Health [phone] 703371 aripiprazole by mouth Z99735 11/06/2020 once a day 10 mg t ablet 29407 888479 [phone] Saumya Don [id number] Psychiatric/Mental Health [phone] 273081 trazodone by mouth Z30170 11/06/2020 at bedtime 50 mg t ablet as needed 88573 109718 [id number] Saumya Don [id number] Psychiat antonio/Mental Health [phone] Social History Social History Element Description Concept Effective Date Smoking Status Unknown if ever smoked [id number] 45555704 Immunizations No Data in Section Vital Signs Encounter Date Height Ins Weight Lbs Bmi Bp Systolic Bp Diastoli c Oxygen Saturation Respiration Rate Pulse Rate Body Temp Head Circumference Heigh t Lying 12/26/2020 0.00 0.00 0.00 0 0 0.00 0 0 0.00 0.0 0.0 0 Procedures Date Concept Id Description Targeted Site Concept Targeted Site Concept Type 12/26/2020 52798-16 [facility] Telemed E/M Lvl 3--Est pt CPT 12/26/2020 84967-88 Telemed A/O 30" CPT Patient has no history of implantable de vices Encounters Encounter Start Date End Date Encounter Type Description Diagnosis Di agnosis Desc Location Author First Name Author Last Name Npid Taxonomy Cod e Taxonomy Desc Phone Number Location Addr1 Location Addr2 Location [facility] Location [facility] Location [facility] [id number] 12/26/2020 12/26/2020 76527-97 [facility] Telemed E/M Lvl 3--Est p t F43.12 Post- traumatic stress disorder, chronic [facility] Arian Kerns [id number] Psychiatric/Mental Health [id number] [address] [place], [place] 1 [facility] [address] Plan of Treatment No Data in Section Lab Results No Data in Section Instructions No Data in Section Functional Cognitive Status No Data in Section Insurance Providers Insurance Id Policy Effective Date Policy Thru Date [employer] N cesar [id number] 2019 [employer] Managed Teresa barnes
--- OUTSIDE RECORDS SUMMARY | 2020-12-30 01:13 | CCD ---
Author Author Meghan Hernandes Organization Unknown Address [address] [address] Phone Care Team Providers Care Flux Plant Operator Name Role Phone Eugenio Hernandes PCP Allergies, Adverse Reactions, Alerts Concept Allergy Name Reaction Severity Onset Date Status Documentation Date Phone Number Npid Taxonomy Code Taxonomy Desc Author Last Name Author Fi rst Name Concept Type 522842 Ambien (zolpidem) Too sedated in the morning 03/17 Active 03/17/2019 [id number] Licensed Practical Nurse Rory Bae RXNORM Problem [...] Name Taxonomy Code Taxonomy Desc Phone Number [id number] trazodone by mouth Y60999 11/06/2020 at bedtime 50 mg t ablet as needed 18976 792682 [id number] Saumya Don [id number] Psychiat antonio/Mental Health [phone] 426805 aripiprazole by mouth Q22087 11/06/2020 once a day 10 mg t ablet 57720 581870 [id number] Saumya Don [id number] Psychiatric/Mental Health [phone] 696580 bupropion HCl by mouth N51800 11/06/2020 every morning 300 mg tablet extended release 24 hr 50430 030928 [phone] Saumya brooks [id number] Psychiatric/Mental Health [phone] 906783 prazosin by mouth X59333 11/06/2020 at bedtime 5 mg capsul e 75339 687615 [id number] Maricruz Vizcarra [id number] Nurse Practitioner [phone] 269713 bupropion HCl by mouth N88677 08/15/2020 once a day 150 mg tablet extended release 24 hr 12969 444878 [phone] Saumya brooks [id number] Psychiatric/Mental Health [phone] Social History Social History Element Description Concept Effective Date Smoking Status Unknown if ever smoked [id number] 38248598 Immunizations No Data in Section Vital Signs No Data in Section Procedures Date Concept Id Description Targeted Site Concept Targeted Site Concept Type 12/24/2020 61935-76 [id number]"Psychotherapy CPT Patient has no history of implantable de vices Encounters Encounter Start Date End Date Encounter Type Description Diagnosis Di agnosis Desc Location Author First Name Author Last Name Npid Taxonomy Cod e Taxonomy Desc Phone Number Location Addr1 Location Addr2 Location City Location Sta te Location [facility] [id number] 12/24/2020 12/24/2020 57190-96 [id number]"Psychothera py F43.12 Post-traumatic stress disorder, chronic Community [facility] [id number] Manufacturing Industrial Engineer [id number] [address] [address] Plan of Treatment No Data in Section Lab Results No Data in Section Instructions No Data in Section Insurance Providers Insurance Id Policy Effective Date Policy Thru Date Company N cesar [id number] 2019 [employer] Managed Teresa barnes
--- OUTSIDE RECORDS SUMMARY | 2020-12-30 01:13 | CCD ---
Author Author Meghan Hernandes Organization Unknown Address [address] [address] Phone Care Team Providers Care Soft Mud Molder Name Role Phone Eugenio Hernandes PCP Allergies, Adverse Reactions, Alerts Concept Allergy Name Reaction Severity Onset Date Status Documentation Date Phone Number Npid Taxonomy Code Taxonomy Desc Author Last Name Author Fi rst Name Concept Type 304268 Ambien (zolpidem) Too sedated in the morning 03/17 Active 03/17/2019 3328022061 [id number] Licensed Practical Nurse Rory Bae RXNORM Problem [...] Name Taxonomy Code Taxonomy Desc Phone Number [id number] Ambien 10/27/2019 at bedtime 5 mg tablet 47781 357514 [phone] Saumya Don [id number] Psychiatric/Mental Health 31 [phone] 5215062 Latuda 02/23/2020 30 20 mg tablet 60116 [phone] Saumya Arian [id number] Psychiatric/Mental Health 636712 7375 289145 bupropion HCl by mouth L05153 08/15/2020 once a day 150 mg tablet extended release 24 hr 93059 893987 [id number] Devin Hoskins [id number] Psychiatry 1103441667 834127 lithium carbonate by mouth X86793 08/15/2020 at bedtime 300 mg capsule 38081 852744 [phone] Devin Hoskins [id number] [facility] [id number] Social History Social History Element Description Concept Effective Date Smoking Status Unknown if ever smoked 079456650 35603967 Immunizations No Data in Section Vital Signs No Data in Section Procedures Date Concept Id Description Targeted Site Concept Targeted Site Concept Type 12/02/2020 71568 Extended Individual Psychotherapy - 45 min CPT Patient has no history of implantable de vices Encounters Encounter Start Date End Date Encounter Type Description Diagnosis Di agnosis Desc Location Author First Name Author Last Name Npid Taxonomy Cod e Taxonomy Desc Phone Number Location Addr1 Location Addr2 Location City Location Sta te Location Zip [address] 12/02/2020 12/02/2020 21110 Extended Individual Psych otherapy - 45 min F43.12 Post-traumatic stress disorder, chronic Community [facility] [id number] Tumbler Machine Operator Helper [id number] [address] [address] Plan of Treatment No Data in Section Lab Results No Data in Section Instructions No Data in Section Insurance Providers Insurance Id Policy Effective Date Policy Thru Date [employer] N cesar [id number] 2019 [employer] Managed Teresa barnes
--- OUTSIDE RECORDS SUMMARY | 2020-12-30 01:13 | CCD ---
Author Author [facility] Organization [facility] Address Unknown Phone Unavailable Care Team Providers Care Laminator Hand Name Role Phone Christiane Hernandez Unavailable PROBLEMS Type Condition ICD9-CM Code [id number] Code Onset Dates Condition S tatus W/U Status Risk SNOMED Code Notes Problem Other hyperlipidemia E78.4 Active confirmed 55128935 Problem Personal history of urinary (tract) infections Z87 .440 Active confirmed 5906216687388 Problem Major depressive disorder, single episode, unspecified F32.9 Active confirmed 99323824 Problem Morbid (severe) obesity due to excess calories E66 .01 Active confirmed 401184255 Problem Acanthosis nigricans L83 Active confirmed 834380187 Problem Irregular menstrual cycle N92.6 Active confirmed 55291484 Problem Irregular menses N92.6 Active confirmed 801 86685 Problem Borderline personality disorder F60.3 Active confi rmed 15025925 Problem Bipolar 1 disorder F31.9 Active confirmed 3 31851283 Problem Hypothyroidism, unspecified type E03.9 Active conf irmed 59417261 Problem Mixed hyperlipidemia E78.2 Active confirmed 026144367 Problem Vitamin D deficiency E55.9 Active confirmed 02749747 Problem Bipolar disorder, current ep isode depressed, severe, without psychotic features F31.4 Active confirmed 562770157 Problem Hypercalcemia E83.52 Active confirmed 316552 09 Problem PTSD (post-traumatic stress disorder) F43.10 Ac tive confirmed 83444272 Problem Leukocytosis, unspecified type D72.829 Active confi rmed 039894512 ALLERGIES No Known Allergies ENCOUNTERS from 1999 to 2020-12-16 Encounter Location Date Provider Diagnosis [facility] [place] [address] [place] [address] Nov, Christiane Hernandez Bipolar disorder, current episode depres sed, severe, without psychotic features F31.4 ; PTSD (post-traumatic stress disorder) F43.10 and Borderline personality disorder F60.3 IMMUNIZATIONS Vaccine Route Administration Date Status Influenza [...] Notes Total Score: 0 Interpretation: Alcohol Education Anabaptism: Question Answer Notes Anabaptism 33 None Sexual Hx: Question Answer Notes [...] REASON FOR REFERRAL No Information VITAL SIGNS Weight 362 lbs Nov, Height 63 in Nov, BMI 64.12 kg/m2 Nov, Heart Rate 111 /min Nov, Respiratory Rate 18 /min Nov, Temperature 97 degrees Fahrenheit Nov, Oximetry 100 Nov, Blood pressure systolic 124 mm Hg Nov, Blood pressure diastolic 76 mm Hg Nov, MEDICATIONS Medication SIG (Take, Route, Frequency, Duration) Notes Start Da te End Date Status Prazosin HCl 5 MG 2 caps Orally hs A ctive Vitamin D 1000 UNIT 1 tablet Orally Once a day for 30 day(s) Active Aripiprazole 10 MG 1 tablet Orally Once a day for 30 day(s) Active TraZODone HCl 50 MG 1 tablet at bedtime as neede d Orally Once a day for 30 day(s) Active Nystatin 275664 UNIT/GM 1 application to affected ar ea Externally Twice a day for 30 Active BuPROPion HCl ER (XL) 300 MG TAKE ONE TABLET BY MOUTH EVERY MORNING WITH 300MG TO EQUAL 450MG Orally Once a day Active Zolpidem Tartrate 10 MG (Schedule IV Drug) TAKE 1 ta bBY MOUTH AT BEDTIME MAXIMUM DAILY DOSE 1 Orally Not-Taking Ortho-Cyclen (28) 0.25-35 MG-MCG TAKE ONE TABLET BY MOUTH EVERY DAY for 28 Not-Taking Blossom Carbonate 300 MG 1 capsule at bedtime Orally Once a day for 30 day(s) Not-Taking BuPROPion HCl ER (SR) 150 MG 2 tablets in the morning Orally Once a d ay Not-Taking Levothyroxine Sodium 50 MCG 1 tablet on an empty stoma ch in the morning Orally Once a day for 30 Days Feb, Active Hydrochlorothiazide 12.5 MG 1 tablet in the morning Or ally Once a day for 30 day(s) Aug, Active Latuda 120 MG 1 tablet with food Orally Once a day Not-Taking Ortho Tri-Cyclen Lo 0.18/0.215/0.25 MG-25 MCG 1 tablet Orally Once a day for 28 day(s) Aug, Not-Taking PROCEDURES No Information RESULTS No Results REASON FOR VISIT [facility] Hospital Follow up , [facility] Discharge summary in [facility] H[facility] Type Description Date Medical History Bipolar DO/PTSD/borderlin pe rsonality DO - Brisa at [facility]; Shai at [facility] is therapist Medical History Intentional overdose 03/16/18 Medical History Insomnia Medical History Hypertension Medical History Frequent UTI's, had cystoscopy with urol ogist in [place] Medical History Irregular menses Medical History Acanthosis nigricans Medical History Hypothyroidism Medical History h/o SI - Suicide attempt, OD with pills Medical History self cutting Surgical History salpingo-oophorectomy right 2011 Surgical History appendectomy Hospitalization History psychiatric treatment in [place] 07/28-07/29 Hospitalization History [place] - psychiatric treatment 1 11/28-09/29 Hospitalization History suicidal- [facility], Hospitalization History Intentional overdose of psyc hiatric meds - [facility] ICU, then [facility] 03/18/18 Hospitalization History [facility] 10 day stay, 05/08-05/17/18 C Hospitalization History [facility]- s uicidial 09/2018 Hospitalization History [facility]- [facility] intentional overdose of ps ychiatric meds 11/19-11/21/18 Hospitalization History [place], Suicidial thoughts 01/12/19- Hospitalization History [facility], suicidal ideation 11/2020 Goals Section No Information Health Concerns No Information MEDICAL EQUIPMENT No Information MENTAL STATUS No Information FUNCTIONAL STATUS No Information ASSESSMENTS Encounter Date Diagnosis Assessment Notes Treatment Notes Treatm ent Clinical Notes Nov, Bipolar disorder, current ep isode depressed, severe, without psychotic features (ICD-10 - F31.4) patient reports to be doing better, she is going to continue counseling and med management. she likes the abilify that she is on, she has not experienced any side effects Nov, PTSD (post-traumatic stress disorder) (ICD-10 - F43.10) Nov, Borderline personality disorder (ICD-10 - F60.3) PLAN OF TREATMENT Treatment Notes Assessment Notes Clinical Notes Bipolar disorder, current episode depressed, severe, w ithout psychotic features patient reports to be doing better, she is going to continue counseling and med management. she likes the abilify that she is on, she has not experienced any side effects Next Appt Details r/s 12/2020 appt to 02/2021 Reason: Provider Name:Christiane Hernandez, 2021-02-24 02 :00:00 PM, [address] [place], [address], Insurance Providers Payer Name Payer Address Payer Phone Insured Name Patient Relati onship to Insured Coverage Start Date Coverage End Date [facility] [address] [facility] [address] CHRIS ZAVALA self
--- OUTSIDE RECORDS SUMMARY | 2020-12-30 01:13 | CCD ---
Author Author Meghan Hernandes Organization Unknown Address [address] [address] Phone Care Team Providers Care Relief Operator Name Role Phone Eugenio Hernandes PCP Allergies, Adverse Reactions, Alerts Concept Allergy Name Reaction Severity Onset Date Status Documentation Date Phone Number Npid Taxonomy Code Taxonomy Desc Author Last Name Author Fi rst Name Concept Type 678263 Ambien (zolpidem) Too sedated in the morning 03/17 Active 03/17/2019 [id number] Licensed Practical Nurse Rory Bae RXNORM Problem [...] Name Taxonomy Code Taxonomy Desc Phone Number [id number] Ambien 10/27/2019 at bedtime 5 mg tablet 94846 983902 [id number] Saumya Don [id number] Psychiatric/Mental Health 31 [phone] 2249546 Latuda 02/23/2020 30 20 mg tablet 43644 [id number] Saumya Arian [id number] Psychiatric/Mental Health 539999 2115 254490 bupropion HCl by mouth U94471 08/15/2020 once a day 150 mg tablet extended release 24 hr 52725 015898 [id number] Devin Hoskins [id number] Psychiatry 5056708725 107694 lithium carbonate by mouth W44623 08/15/2020 at bedtime 300 mg capsule 19059 808949 [id number] Devin Hoskins [id number] Psychiat ry 0863818663 Social History Social History Element Description Concept Effective Date Smoking Status Unknown if ever smoked 954162554 60373484 Immunizations No Data in Section Vital Signs No Data in Section Procedures Date Concept Id Description Targeted Site Concept Targeted Site Concept Type 11/04/2020 92229 Extended Individual Psychotherapy - 45 min CPT Patient has no history of implantable de vices Encounters Encounter Start Date End Date Encounter Type Description Diagnosis Di agnosis Desc Location Author First Name Author Last Name Npid Taxonomy Cod e Taxonomy Desc Phone Number Location Addr1 Location Addr2 Location [facility] Location Sta te Location Zip [address] 11/04/2020 11/04/2020 04756 Extended Individual Psych otherapy - 45 min F43.12 Post-traumatic stress disorder, chronic [facility] [id number] Microbiology Lab Technician [id number] [address] [address] Plan of Treatment No Data in Section Lab Results No Data in Section Instructions No Data in Section Insurance Providers Insurance Id Policy Effective Date Policy Thru Date Company N cesar [id number] 2019 [employer] Managed Teresa barnes
--- OUTSIDE RECORDS SUMMARY | 2020-12-30 01:13 | CCD ---
Author Author [facility] Organization [facility] Address Unknown Phone Unavailable Care Team Providers Care Film Cleaner Name Role Phone Christiane Hernandez Unavailable PROBLEMS Type Condition ICD9-CM Code GXS63-HB Code Onset Dates Condition S tatus SNOMED Code Notes Problem Other hyperlipidemia E78.4 Active 97363148 Problem Personal history of urinary (tract) infections Z87 .440 Active 8556695712325 Problem Major depressive disorder, single episode, unspecified F32.9 Active 29611926 Problem Morbid (severe) obesity due to excess calories E66 .01 Active 431476745 Problem Acanthosis nigricans L83 Active 776773402 Problem Irregular menstrual cycle N92.6 Active 106544 07 Problem Irregular menses N92.6 Active 71360592 Problem Borderline personality disorder F60.3 Active 31250493 Problem Bipolar 1 disorder F31.9 Active 534721343 Problem Hypothyroidism, unspecified type E03.9 Active 56200192 Problem Mixed hyperlipidemia E78.2 Active 671535228 Problem Vitamin D deficiency E55.9 Active 04318002 Problem Bipolar disorder, current ep isode depressed, severe, without psychotic features F31.4 Active 068864253 Problem Hypercalcemia E83.52 Active 29782963 Problem PTSD (post-traumatic stress disorder) F43.10 Ac tive 97764150 Problem Leukocytosis, unspecified type D72.829 Active 1 91045588 ALLERGIES No Known Allergies ENCOUNTERS from 1999 to 2020-10-28 Encounter Location Date Provider Diagnosis [address] [place] [address] Sep, Christianemichaela Fontanezon IMMUNIZATIONS Vaccine Route Administration Date [...] Notes Total Score: 0 Interpretation: Alcohol Education Mormonism: Question Answer Notes Mormonism 33 None Sexual Hx: Question Answer Notes [...] Notes Start Da te End Date Status [employer] Carbonate 300 MG 1 capsule at bedtime Orally Once a day for 30 day(s) Active Latuda 120 MG 1 tablet with food Orally Once a day Active Zolpidem Tartrate 10 MG (Schedule IV Drug) TAKE 1 ta bBY MOUTH AT BEDTIME MAXIMUM DAILY DOSE 1 Orally Not-Taking Nystatin 977046 UNIT/GM 1 application to affected ar ea [...] Information RESULTS No Results REASON FOR VISIT states pt is having suicidal thoughts MEDICAL (GENERAL) HISTORY Type Description Date Medical History Bipolar DO/PTSD/borderlin pe rsonality DO - Brisa at [facility]; Shai at [facility] is therapist Medical History Intentional overdose 03/16/18 Medical History Insomnia Medical History Hypertension Medical History Frequent UTI's, had cystoscopy with urol ogist in [place] Medical History Irregular menses Medical History Acanthosis nigricans Medical History Hypothyroidism Medical History h/o SI - Suicide attempt, OD with pills Medical History self cutting Surgical History salpingo-oophorectomy right 2011 Surgical History appendectomy Hospitalization History psychiatric treatment in [place] 07/28-07/29 Hospitalization History [place] - psychiatric treatment 1 11/28-09/29 Hospitalization History suicidial- [facility], Hospitalization History Intentional overdose of psyc hiatric meds - [facility] ICU, then [facility] 03/18/18 Hospitalization History [facility] 10 day stay, 05/08-05/17/18 [facility] Hospitalization History [facility]- s uicidial 09/2018 Hospitalization History [facility]- [facility] intentional overdose of ps ychiatric meds 11/19-11/21/18 Hospitalization History [place], Suicidial thoughts 01/12/19- Goals Section No Information [...] a day for 30 day(s) Aug, Nystatin 123680 UNIT/GM 1 application to affected ar ea Externally Twice a day for 30 Next Appt Details Provider Name:Christiane Hernandez, 2020-11-01 02 :45:00 PM, [address] [place] [address], [phone], Provider Name:Christiane Hernandez 2020-12-17 02 :00:00 PM, [address] [place] [address], [phone], Insurance Providers Payer Name Payer Address Payer Phone Insured Name Patient Relati onship to Insured Coverage Start Date Coverage End Date [facility] PLAN [facility] [address] [facility] [address] CHRIS ZAVALA self
--- OUTSIDE RECORDS SUMMARY | 2020-12-30 01:13 | CCD ---
Author Author Meghan Hernandes Organization Unknown Address [address] [address] Phone Care Team Providers Care Handle Bender Name Role Phone Eugenio Hernandes PCP Allergies, Adverse Reactions, Alerts Concept Allergy Name Reaction Severity Onset Date Status Documentation Date Phone Number Npid Taxonomy Code Taxonomy Desc Author Last Name Author Fi rst Name Concept Type 902703 Ambien (zolpidem) Too sedated in the morning 03/17 Active 03/17/2019 [id number] Licensed Practical Nurse Rory Bae RXNORM Problem [...] Name Taxonomy Code Taxonomy Desc Phone Number [id number] Latuda 02/23/2020 30 20 mg tablet 90955 [id number] Saumya Don [id number] Psychiatric/Mental Health [phone] 786901 lithium carbonate by mouth [id number] 08/15/2020 at bedtime 300 mg capsule 29381 [id number] Devin Ulberg [id number] Psychiat ry [id number] [id number] bupropion HCl by mouth [id number] 08/15/2020 once a day 150 mg tablet extended release 24 hr 12294 [id number] Devin Hoskins [id number] Psychiatry [id number] Ambien 10/27/2019 at bedtime 5 mg tablet 21651 [id number] Saumya Don [id number] Psychiatric/Mental Health [phone] [id number] Social History Social History Element Description Concept Effective Date Smoking Status Unknown if ever smoked [id number] Immunizations No Data in Section Vital Signs No Data in Section Procedures Date Concept Id Description Targeted Site Concept Targeted Site Concept Type 11/25/2020 00376 Extended Individual Psychotherapy - 45 min CPT Patient has no history of implantable de vices Encounters Encounter Start Date End Date Encounter Type Description Diagnosis Di agnosis Desc Location Author First Name Author Last Name Npid Taxonomy Cod e Taxonomy Desc Phone Number Location Addr1 Location Addr2 Location City Location [place] [id number] 11/25/2020 11/25/2020 67153 Extended Individual Psych otherapy - 45 min F43.12 Post-traumatic stress disorder, chronic Community Clin [facility] [id number] Gum Machine Operator [phone] [address] [address] Plan of Treatment No Data in Section Lab Results No Data in Section Instructions No Data in Section Insurance Providers Insurance Id Policy Effective Date Policy Thru Date Bill the Butcher Mayra guerrero [id number] 2019 [employer] Managed Teresa barnes
--- OUTSIDE RECORDS SUMMARY | 2020-12-30 01:14 | CCD ---
Author Author [facility] Organization [facility] Address Unknown Phone Unavailable Care Team Providers Care X Ray Operator Name Role Phone Ahmet Don PMH-INSURANCE ADVISOR Unavailable Unavailable Ahmet Don PMH-INSURANCE ADVISOR Unavailable Unavailable Ahmet Don PMH-INSURANCE ADVISOR Unavailable Unavailable Ahmet Don PMH-INSURANCE ADVISOR Unavailable Unavailable Ahmet Don PMH-INSURANCE ADVISOR Unavailable Unavailable Ahmet Don PMH-INSURANCE ADVISOR Unavailable Unavailable Elizabeth MORRISON Unavailable Unavailable Eugenio Hernandes Unavailable Eugenio Hernandes Unavailable Peñaloza, Masha Unavailable Unavailable Peñaloza, Masha Unavailable Unavailable Peñaloza, Masha Unavailable Unavailable Peñaloza, Masha Unavailable Unavailable Peñaloza, Masha Unavailable Unavailable Peñaloza, Masha Unavailable Unavailable Peñaloza, Masha Unavailable Unavailable Peñaloza, Masha Unavailable Unavailable Peñaloza, Masha Unavailable Unavailable Peñaloza, Masha Unavailable Unavailable Peñaloza, Masha Unavailable Unavailable Peñaloza, Masha Unavailable Unavailable Peñaloza, Masha Unavailable Unavailable Peñaloza, Masha Unavailable Unavailable Peñaloza, Masha Unavailable Unavailable Peñaloza, Masha Unavailable Unavailable Peñaloza, Masha Unavailable Unavailable Peñaloza, Masha Unavailable Unavailable Peñaloza, Masha Unavailable Unavailable Peñaloza, Masha Unavailable Unavailable Peñaloza, Masha Unavailable Unavailable Peñaloza, Masha Unavailable Unavailable Peñaloza, Masha Unavailable Unavailable Peñaloza, Masha Unavailable Unavailable Peñaloza, Masha Unavailable Unavailable Peñaloza, Masha Unavailable Unavailable Peñaloza, Masha Unavailable Unavailable Peñaloza, Masha Unavailable Unavailable Peñaloza, Masha Unavailable Unavailable Peñaloza, Masha Unavailable Unavailable Peñaloza, Masha Unavailable Unavailable Peñaloza, Masha Unavailable Unavailable Peñaloza, Masha Unavailable Unavailable Trung Holguin Unavailable Graciela Pacheco Unavailable Unavailable Re-disclosure Warning The records that you are about to access may contain information from federally-assisted alcohol or drug abuse programs. If such information is present, then the following federally mandated warning applies: This information has been disclosed to you from records protected by federal confidentiality rules (42 CFR part 2). The federal rules prohibit you from making any further disclosure of this information unless further disclosure is expressly permitted by the written consent of the person to whom it pertains or as otherwise permitted by 42 CFR part 2. A general authorization for the release of medical or other information is NOT sufficient for this purpose. The Federal rules restrict any use of the information to criminally investigate or prosecute any alcohol or drug abuse patient.The records that you are about to access may contain highly sensitive health information, the redisclosure of which is protected by Article 27-F of the [facility] Public Health law. If you continue you may have access to information: Regarding HIV / AIDS; Provided by facilities licensed or operated by the [facility] Office of Mental Health; or Provided by the [facility] Office for People With Developmental Disabilities. If such information is present, then the following [facility] mandated warning applies: This information has been disclosed to you from confidential records which are protected by state law. State law prohibits you from making any further disclosure of this information without the specific written consent of the person to whom it pertains, or as otherwise permitted by law. Any unauthorized further disclosure in violation of state law may result in a fine or retirement sentence or both. A general authorization for the release of medical or other information is NOT sufficient authorization for further disc losure. Allergies and Adverse Reactions Type Description Substance Reaction Status Data Source(s ) Propensity to adverse reactions to substance Ambien (zolpide m) Zolpidem tartrate 10 MG Oral Tablet [Ambien] Active [facility]) Drug Class NO KNOWN ALLERGIES NO KNOWN ALLERGIES [facility] Family History Family Member Name Family Member Gender Family Member Status Date o f Status Description Data Source(s) Unknown Unknown Problem [facility] ([facility] father Encounters Encounter Providers Location Date Indications Data Source(s ) Outpatient Attender: Saumya Don [facility] Longterm 12/26/2020 02:00:00 AM EST - 12/26/2020 02:00:00 AM EST [facility] ([facility]) [facility] 12/26/2020 12: 00:00 AM EST [facility] ([facility]) Attender: Eugenio Hernandes 12/25/2020 12:00:00 AM EST [facility] ([facility]) [id number]"Psychotherapy Attender: Eugenio Hernandes [facility] 12/24/2020 02:00:00 AM EST - 12/24/2020 02:00:00 AM EST [facility] ([facility]) Attender: Eugenio Hernandes 12/03/2020 12:00:00 AM EST [facility] ([facility]) Extended Individual Psychotherapy - 45 min Attender: Anthony yarbrough [facility] 12/02/2020 03:00:00 AM EST - 12/02/2020 03:00:00 AM EST [facility] ([facility]) [facility]patient [facility] [place] [address] 11/26/2020 12:00:00 AM EST eC ([facility]) Extended Individual Psychotherapy - 45 min Attender: Anthony yarbrough [facility] 11/25/2020 03:00:00 AM EST - 11/25/2020 03:00:00 AM EST [facility] ([facility]) Attender: Eugenio Hernandes 11/25/2020 12:00:00 AM EST [facility] ([facility]) Attender: Eugenio Hernandes 11/19/2020 12:00:00 AM EST [facility] ([facility]) Extended Individual Psychotherapy - 45 min Attender: Anthony yarbrough [facility] Longterm 11/18/2020 01:00:00 AM EST - 11/18/2020 01:00:00 AM EST [facility] ([facility]) Outpatient Attender: Saumya Don [facility]INSURANCE ADVISOR [facility] Longterm 11/06/2020 01:30:00 AM EST - 11/06/2020 01:30:00 AM EST [facility] ([facility]) Attender: Saumya Don [facility]-INSURANCE ADVISOR 11/06/2020 12: 00:00 AM EST [facility] ([facility]) Attender: Eugenio Hernandes 11/05/2020 12:00:00 AM EST [facility] ([facility]) Extended Individual Psychotherapy - 45 min Attender: Anthony yarbrough [facility] 11/04/2020 03:00:00 AM EST - 11/04/2020 03:00:00 AM EST [facility] ([facility]) [place] [address] [facility] [address] 11/01/2020 12:00:00 AM EST eCW1 ([facility]) Attender: Eugenio Hernandes 10/22/2020 12:00:00 AM EST [facility] ([facility]) Extended Individual Psychotherapy - 45 min Attender: Anthony yarbrough [facility] 10/21/2020 02:00:00 AM EST - 10/21/2020 02:00:00 AM EST [facility] ([facility]) Outpatient Attender: Masha Peñaloza 10/08/2020 12:00:00 AM [facility] Unknown [address] [facility] [address] 10/04/2020 12:00:00 AM EST eCW1 ([facility]) Outpatient Attender: CHARLIE MORRISON [id number] 09/27/2020 12:00 :00 AM EST Morbid (severe) obesity due to excess calories [facility] Morbid (severe) obesity due to excess ca lories Outpatient 09/26/2020 12:00:00 AM EST [facility] Attender: Eugenio Hernandes 09/25/2020 12:00:00 AM EST [facility] ([facility]) Extended Individual Psychotherapy - 45 min Attender: Anthony yarbrough [facility] 09/24/2020 01:00:00 AM EST - 09/24/2020 01:00:00 AM EST [facility] ([facility]) Unknown [address] [facility] [address] 09/11/2020 12:00:00 AM EDT eCW1 ([facility]) Extended Individual Psychotherapy - 45 min Attender: Anthony Hernandes [facility] 09/10/2020 02:00:00 AM EDT - 09/10/2020 02:00:00 AM EDT [facility] ([facility]) Attender: Eugenio Hernandes 09/10/2020 12:00:00 AM EDT [facility] ([facility]) Outpatient [address] [facility] [address] 08/28/2020 12:00:00 AM EDT eCW1 ([facility]) Outpatient Attender: Saumya COOPERGALO [facility] 08/27/2020 02:30:00 AM EDT - 08/27/2020 02:30:00 AM EDT [facility] ([facility]) Attender: Saumya OWUSU 08/27/2020 12: 00:00 AM EDT [facility] ([facility]) Outpatient [address] [facility] [address] 08/19/2020 12:00:00 AM EDT eCW1 ([facility]) Attender: Eugenio Hernandes 08/19/2020 12:00:00 AM EDT [facility] ([facility]) [id number]"Psychotherapy Attender: Eugenio Hernandes [facility] 08/16/2020 02:00:00 AM EDT - 08/16/2020 02:00:00 AM EDT [facility] ([facility]) Outpatient 08/09/2020 12:00:00 AM EDT [facility] Outpatient Attender: Saumya Don PM-INSURANCE ADVISOR [facility] 05/14/2020 03:30:00 AM EDT - 05/14/2020 03:30:00 AM EDT [facility] ([facility]) Attender: Saumya COOPER-INSURANCE ADVISOR 05/14/2020 12: 00:00 AM EDT [facility] ([facility]) Outpatient Attender: Graciela MARCUS 04/23/2020 07:31:08 PM ED [place] [address] [address] 04/09/2020 12:00:00 AM EDT eCW1 ([facility]) [facility] [address] [place] [address], [place] [address] 02/29/2020 12:00:00 AM EDT eCW1 ([facility]) Attender: Trung Holguin 02/28/2020 12:00:0 0 AM EDT [facility] ([facility]) TEMPMHCTelemed 20" psychotherapy [facility] 02/27/2020 03:00:00 AM EDT - 02/27/2020 03:00:00 AM EDT [facility] ([facility]) TEMPMHCTelemed 30" Psychotherapy [facility]: [facility]ene [facility] 02/13/2020 03:00:00 AM EDT - 02/13/2020 03:00:00 AM EDT [facility] ([facility]) Attender: Trung Holguin 02/13/2020 12:00:0 0 AM EDT [facility] ([facility]) [address] [address] 02/06/2020 12:00:00 AM EDT eCW1 ([facility]) Attender: Trung Holguin 01/31/2020 12:00:0 0 AM EDT [facility] ([facility]) TEMPMHCTelemed 30" Psychotherapy Attender: Trung Bergeron jabier [facility] 01/30/2020 04:15:00 AM EDT - 01/30/2020 04:15:00 AM EDT [facility] ([facility]) [facility] [address] [facility] [address] 01/29/2020 12:00:00 AM EDT eCW1 ([facility]) [facility] [address] [facility] [place] [address] 01/19/2020 12:00:00 AM EST eCW1 ([facility]) Outpatient Attender: Saumya Don [facility]-INSURANCE ADVISOR [facility] 01/16/2020 11:30:00 AM EST - 01/16/2020 11:30:00 AM EST [facility] ([facility]) Extended Individual Psychotherapy - 45 min Attender: Jonathon Gilbertnicolejabier [facility] 01/16/2020 04:00:00 AM EST - 01/16/2020 04:00:00 AM EST [facility] ([facility]) Attender: Trung Holguin 01/16/2020 12:00:0 0 AM EST [facility] ([facility]) Attender: Saumya COOPER-JUDITH 01/16/2020 12: 00:00 AM EST [facility] ([facility]) [address] [place] [address] 01/16/2020 12:00:00 AM EST eCW1 ([facility]) [facility] [address] [place] [address] 12/19/2019 12:00:00 AM EST eCW1 ([facility]) [facility] [address] [place] [address] 12/19/2019 12:00:00 AM EST eCW1 ([facility]) [facility] [address] [facility] [address] 12/05/2019 12:00:00 AM EST eCW1 ([facility]) [address] [place] [address] 12/05/2019 12:00:00 AM EST eCW1 ([facility]) [address] [address] 11/30/2019 12:00:00 AM EST eCW1 ([facility]) Outpatient Attender: Saumya Don [facility]-INSURANCE ADVISOR [facility] 11/17/2019 02:00:00 AM EST - 11/17/2019 02:00:00 AM EST [facility] ([facility]) Attender: Saumya Don [facility]-INSURANCE ADVISOR 11/17/2019 12: 00:00 AM EST [facility] ([facility]) Attender: Trung Holguin 11/16/2019 12:00:0 0 AM EST [facility] ([facility]) Brief Individual Psychotherapy - 30 min Attender: Trung ortez [facility] 11/14/2019 03:00:00 AM EST - 11/14/2019 03:00:00 AM EST [facility] ([facility]) [address] [address] 11/01/2019 12:00:00 AM EST eCW1 ([facility]) [address] [address] 11/01/2019 12:00:00 AM EST eCW1 ([facility]) Functional Status Medications Medication Brand Name Start Date Product Form Dose Route Admi nistrative Instructions Pharmacy Instructions Status Indications Reaction Description Data Source(s) 50 mg 12/28/2020 12:00:00 AM EST tablet 30 TAKE ONE TABLET BY MOUTH EVERY DAY AT BEDTIME NEEDED TAKE ONE TABLET BY MOUTH EVERY DAY AT BE DTIME NEEDED SOLD: 12/28/2020 [facility] Nystatin 100 UNT/MG Topical Powder 100,000 unit/gram [place]STAT[place] N 12/20/2020 12:00:00 AM EST powder 15 APPLY TO AFFECTED AREA TW O TIMES A DAY EXTERNALLY APPLY TO AFFECTED AREA TWO TIMES A DAY EXTERNALLY SOLD: 12/28/2020 [facility] 5 mg 12/04/2020 12:00:00 AM EST capsule 60 TAKE TWO CAPSULES BY MOUTH AT BEDTIME TAKE TWO CAPSULES BY MOUTH AT BEDTIME SOLD: 12/05/2020 [facility] 24 HR Bupropion Hydrochloride 150 MG Extended Release Oral T ablet BUPROPION HCL 11/06/2020 12:00:00 AM EST tablet extended release 24 hr 30 TAKE ONE TABLET BY MOUTH EVERY DAY TAKE ONE TABLET BY MOUTH EVERY DAY SOLD: 12/14/2020 [facility] 50 mg 11/06/2020 12:00:00 AM EST tablet 30 TAKE ONE TABLET BY MOUTH EVERY DAY AT BEDTIME NEEDED TAKE ONE TABLET BY MOUTH EVERY DAY AT [facility] NEEDED SOLD: 12/05/2020 [facility] 24 HR Bupropion Hydrochloride 300 MG Extended Release Oral T ablet bupropion HCl 11/06/2020 12:00:00 AM EST 300 mg by mouth completed [id number] bupropion HCl by mouth [id number] 11/06/2020 every morning 300 mg tablet extended release 24 hr 78509 [id number] Saumya Don [id number] P sychiatric/Mental Health [facility] ([facility]) Trazodone Hydrochloride 50 MG Oral Tablet trazodone 2019 12:00:00 AM EST 50 mg by mouth completed [id number] trazodone by mouth [id number] 88 11/06/2020 at bedtime 50 mg tablet as needed 10980 [id number] Massimo Don [id number] Psychiatric/Mental Health [facility] ([facility]) 10 mg 11/06/2020 12:00:00 AM EST tablet 30 TAKE ONE TABLET BY MOUTH EVERY DAY TAKE ONE TABLET BY MOUTH EVERY DAY SOLD: 12/09/2020 [facility] Trazodone Hydrochloride 50 MG Oral Tablet trazodone 2019 12:00:00 AM EST 50 mg by mouth completed [id number] trazodone by mouth C382 88 11/06/2020 at bedtime 50 mg tablet as needed 96739 [id number] Massimo Don [id number] Psychiatric/Mental Health [facility] ([facility]) 24 HR Bupropion Hydrochloride 300 MG Extended Release Oral T ablet BUPROPION HCL 11/06/2020 12:00:00 AM EST tablet extended release 24 hr 30 TAKE ONE TABLET BY MOUTH EVERY MORNING TAKE ONE TABLET BY MOUTH EVERY MORNING SOLD: 12/14/2020 [facility] aripiprazole 10 MG Oral Tablet aripiprazole 11/06/2020 12:00:00 AM ES T 10 mg by mouth completed [id number] aripiprazole by mouth [id number] 1 01/07/2020 once a day 10 mg tablet 45295 [id number] Saumya brooks [id number] Psychiatric/Mental Health [facility] ([facility]) 50 mg 11/06/2020 12:00:00 AM EST tablet 30 TAKE ONE TABLET BY MOUTH EVERY DAY AT BEDTIME NEEDED TAKE ONE TABLET BY MOUTH EVERY DAY AT [facility] NEEDED SOLD: 11/07/2020 [facility] aripiprazole 10 MG Oral Tablet aripiprazole 11/06/2020 12:00:00 AM ES T 10 mg by mouth completed [id number] aripiprazole by mouth [id number] 1 01/07/2020 once a day 10 mg tablet 01791 [id number] Saumya brooks [id number] Psychiatric/Mental Health [facility] ([facility]) 10 mg 11/06/2020 12:00:00 AM EST tablet 30 TAKE ONE TABLET BY MOUTH EVERY DAY TAKE ONE TABLET BY MOUTH EVERY DAY SOLD: 11/07/2020 [facility] Prazosin 5 MG Oral Capsule prazosin 11/06/2020 12:00:00 AM EST 5 mg by mouth completed [id number] prazosin by mouth [id number] 11/06/2020 at bedtime 5 mg capsule 38894 [id number] [id number] Maricruz Vizcarra [id number] Nurse Practitioner [facility] ([facility]) 5 mg 11/06/2020 12:00:00 AM EST capsule 50 TAKE TWO CAPSULES BY MOUTH EVERY DAY AT BEDTIME TAKE TWO CAPSULES BY MOUTH EVERY DAY AT BEDTIME SOLD: 2019 [facility] Prazosin 5 MG Oral Capsule prazosin 11/06/2020 12:00:00 AM EST 5 mg by mouth completed [id number] prazosin by mouth [id number] 11/06/2020 at bedtime 5 mg capsule 45973 [id number] Maricruz Vizcarra [id number] Nurse Practitioner [facility] ([facility]) 24 HR Bupropion Hydrochloride 150 MG Extended Release Oral T ablet BUPROPION HCL 11/06/2020 12:00:00 AM EST tablet extended release 24 hr 30 TAKE ONE TABLET BY MOUTH EVERY DAY TAKE ONE TABLET BY MOUTH EVERY DAY SOLD: 11/07/2020 [facility] 24 HR Bupropion Hydrochloride 300 MG Extended Release Oral T ablet BUPROPION HCL 11/06/2020 12:00:00 AM EST tablet extended release 24 hr 30 TAKE ONE TABLET BY MOUTH EVERY MORNING TAKE ONE TABLET BY MOUTH EVERY MORNING SOLD: 11/07/2020 [facility] Nystatin 100 UNT/MG Topical Powder 100,000 unit/gram [place] N 10/25/2020 12:00:00 AM EST powder 15 APPLY TO AFFECTED AREA(S) TWO TIMES A DAY APPLY TO AFFECTED AREA(S) TWO TIMES A DAY SOLD: 10/30/2020 [facility] 10 mg 10/18/2020 12:00:00 AM EST tablet 7 TAKE ONE TABLET BY MOUTH EVERY DAY FOR MOOD TAKE ONE TABLET BY MOUTH EVERY DAY FOR MOOD SOLD: 12/05/2020 [facility] 10 mg 10/18/2020 12:00:00 AM EST tablet 7 TAKE ONE TABLET BY MOUTH EVERY DAY FOR MOOD TAKE ONE TABLET BY MOUTH EVERY DAY FOR MOOD SOLD: 11/01/2020 [facility] 10 mg 10/18/2020 12:00:00 AM EST tablet 7 TAKE ONE TABLET BY MOUTH EVERY DAY FOR MOOD TAKE ONE TABLET BY MOUTH EVERY DAY FOR MOOD SOLD: 10/24/2020 [facility] 10 mg 10/18/2020 12:00:00 AM EST tablet 7 TAKE ONE TABLET BY MOUTH EVERY DAY FOR MOOD TAKE ONE TABLET BY MOUTH EVERY DAY FOR MOOD SOLD: 10/18/2020 [facility] Hydrochlorothiazide 12.5 MG Oral Tablet HYDROCHLOROTHIAZIDE 09/14/2020 12:00:00 AM EDT tablet 30 TAKE ONE TABLET BY MOUTH MADELINE RY MORNING TAKE ONE TABLET BY MOUTH EVERY MORNING SOLD: 11/23/2020 [facility] Hydrochlorothiazide 12.5 MG Oral Tablet HYDROCHLOROTHIAZIDE 09/14/2020 12:00:00 AM EDT tablet 30 TAKE ONE TABLET BY MOUTH MADELINE RY MORNING TAKE ONE TABLET BY MOUTH EVERY MORNING SOLD: 10/14/2020 [facility] Hydrochlorothiazide 12.5 MG Oral Tablet HYDROCHLOROTHIAZIDE 09/14/2020 12:00:00 AM EDT tablet 30 TAKE ONE TABLET BY MOUTH MADELINE RY MORNING TAKE ONE TABLET BY MOUTH EVERY MORNING SOLD: 09/14/2020 [facility] Hydrochlorothiazide 12.5 MG Oral Tablet HYDROCHLOROTHIAZIDE 09/14/2020 12:00:00 AM EDT tablet 30 TAKE ONE TABLET BY MOUTH MADELINE RY MORNING TAKE ONE TABLET BY MOUTH EVERY MORNING SOLD: 12/28/2020 [facility] 120 mg 08/30/2020 12:00:00 AM EDT tablet 30 TAKE ONE TABLET BY MOUTH EVERY MORNING TAKE ONE TABLET BY MOUTH EVERY MORNING SOLD: 08/31/2020 [facility] 120 mg 08/30/2020 12:00:00 AM EDT tablet 30 TAKE ONE TABLET BY MOUTH EVERY MORNING TAKE ONE TABLET BY MOUTH EVERY MORNING SOLD: 09/27/2020 [facility] 0.18/0.215/0.25 mg-25 mcg 08/29/2020 12:00:00 AM EDT tablet 28 TAKE ONE TABLET BY MOUTH EVERY DAY TAKE ONE TABLET BY MOUTH EVERY DAY SOLD: 08/30/2020 [facility] Tri-Lo-Yamilex 28 Day Pack 0.18/0.215/0.25 mg-25 mcg NORG ESTIMATE-ETHINYL ESTRADIOL 08/29/2020 12:00:00 AM EDT tablet 28 TAKE ONE TABLET BY MOUTH EVERY DAY TAKE ONE TABLET BY MOUTH EVERY DAY SOLD: 09/22/2020 [facility] Ortho Tri-Cyclen Lo 0.18/0.215/0.25 MG-25 MCG UNK 08/28/20 12:00:00 AM EDT 1.0 {tablet} suspended Ortho Tri-Cyclen Lo 0.18/0.215/0.25 MG-25 MCG eCW1 ([facility]) Ortho Tri-Cyclen Lo 0.18/0.215/0.25 MG-25 MCG UNK 08/28/20 12:00:00 AM EDT 1.0 {tablet} active Ortho Tri-Cyclen Lo 0.18/0.215/0.25 MG-25 MCG eCW1 ([facility]) Ortho Tri-Cyclen Lo 0.18/0.215/0.25 MG-25 MCG UNK 08/28/20 12:00:00 AM EDT 1.0 {tablet} active Ortho Tri-Cyclen Lo 0.18/0.215/0.25 MG-25 MCG eCW1 ([facility]) Ortho Tri-Cyclen Lo 0.18/0.215/0.25 MG-25 MCG UNK 08/28/20 12:00:00 AM EDT 1.0 {tablet} active Ortho Tri-Cyclen Lo 0.18/0.215/0.25 MG-25 MCG eCW1 ([facility]) Ortho Tri-Cyclen Lo 0.18/0.215/0.25 MG-25 MCG UNK 08/28/20 12:00:00 AM EDT 1.0 {tablet} active Ortho Tri-Cyclen Lo 0.18/0.215/0.25 MG-25 MCG eCW1 ([facility]) Ortho Tri-Cyclen Lo 0.18/0.215/0.25 MG-25 MCG UNK 08/28/20 12:00:00 AM EDT 1.0 {tablet} active Ortho Tri-Cyclen Lo 0.18/0.215/0.25 MG-25 MCG eCW1 ([facility]) 50 mcg 08/22/2020 12:00:00 AM EDT tablet 30 TAKE ONE TABLET BY MOUTH EVERY MORNING ON AN EMPTY STOMACH TAKE ONE TABLET BY MOUTH EVERY MORNING O N AN EMPTY STOMACH SOLD: 08/22/2020 [facility] 50 mcg 08/22/2020 12:00:00 AM EDT tablet 30 TAKE ONE TABLET BY MOUTH EVERY MORNING ON AN EMPTY STOMACH TAKE ONE TABLET BY MOUTH EVERY MORNING O N AN EMPTY STOMACH SOLD: 09/21/2020 [facility] 50 mcg 08/22/2020 12:00:00 AM EDT tablet 30 TAKE ONE TABLET BY MOUTH EVERY MORNING ON AN EMPTY STOMACH TAKE ONE TABLET BY MOUTH EVERY MORNING O N AN EMPTY STOMACH SOLD: 11/01/2020 [facility] 50 mcg 08/22/2020 12:00:00 AM EDT tablet 30 TAKE ONE TABLET BY MOUTH EVERY MORNING ON AN EMPTY STOMACH TAKE ONE TABLET BY MOUTH EVERY MORNING O N AN EMPTY STOMACH SOLD: 12/05/2020 [facility] Hydrochlorothiazide 12.5 MG Oral Tablet HYDROCHLOROTHIAZIDE 08/20/2020 12:00:00 AM EDT tablet 30 TAKE ONE TABLET BY MOUTH MADELINE RY MORNING TAKE ONE TABLET BY MOUTH EVERY MORNING SOLD: 08/21/2020 [facility] Hydrochlorothiazide 12.5 MG Oral Tablet Hydrochlorothiazide 12.5 MG 08/19/2020 12:00:00 AM EDT 1.0 {tablet_in_the_morning} acti ve Hydrochlorothiazide 12.5 MG eCW1 ([facility]) Hydrochlorothiazide 12.5 MG Oral Tablet Hydrochlorothiazide 12.5 MG 08/19/2020 12:00:00 AM EDT 1.0 {tablet_in_the_morning} susp ended Hydrochlorothiazide 12.5 MG eCW1 ([facility]) Hydrochlorothiazide 12.5 MG Oral Tablet Hydrochlorothiazide 12.5 MG 08/19/2020 12:00:00 AM EDT 1.0 {tablet_in_the_morning} acti ve Hydrochlorothiazide 12.5 MG eCW1 ([facility]) Hydrochlorothiazide 12.5 MG Oral Tablet Hydrochlorothiazide 12.5 MG 08/19/2020 12:00:00 AM EDT 1.0 {tablet_in_the_morning} acti ve Hydrochlorothiazide 12.5 MG eCW1 ([facility]) Hydrochlorothiazide 12.5 MG Oral Tablet Hydrochlorothiazide 12.5 MG 08/19/2020 12:00:00 AM EDT 1.0 {tablet_in_the_morning} acti ve Hydrochlorothiazide 12.5 MG eCW1 ([facility]) Hydrochlorothiazide 12.5 MG Oral Tablet Hydrochlorothiazide 12.5 MG 08/19/2020 12:00:00 AM EDT 1.0 {tablet_in_the_morning} acti ve Hydrochlorothiazide 12.5 MG eCW1 ([facility]) [place] Carbonate 300 MG Oral Capsule lithium carbonate 12:00:00 AM EDT 300 mg by mouth completed [id number] lithium car bonate by mouth [id number] 08/15/2020 at bedtime 300 mg capsule [id number] Devin Hoskins [id number] [facility]) 300 mg 08/15/2020 12:00:00 AM EDT capsule 30 TAKE ONE CAPSULE BY MOUTH EVERY DAY AT BEDTIME TAKE ONE CAPSULE BY MOUTH EVERY DAY AT BEDTIME SOLD: [facility] 24 HR Bupropion Hydrochloride 150 MG Extended Release Oral T ablet BUPROPION HCL 08/15/2020 12:00:00 AM EDT tablet extended release 24 hr 30 TAKE ONE TABLET BY MOUTH EVERY DAY TAKE ONE TABLET BY MOUTH EVERY DAY SOLD: 09/16/2020 [facility] 24 HR Bupropion Hydrochloride 150 MG Extended Release Oral T ablet BUPROPION HCL 08/15/2020 12:00:00 AM EDT tablet extended release 24 hr 30 TAKE ONE TABLET BY MOUTH EVERY DAY TAKE ONE TABLET BY MOUTH EVERY DAY SOLD: 08/17/2020 [facility] 24 HR Bupropion Hydrochloride 150 MG Extended Release Oral T ablet bupropion HCl 08/15/2020 12:00:00 AM EDT 150 mg by mouth completed [id number] bupropion HCl by mouth [id number] 08/15/2020 once a day 150 mg tablet ex tended release 24 hr [id number] Saumya Don [id number] P sy[facility]atric/[facility] ([facility]) 300 mg 08/15/2020 12:00:00 AM EDT capsule 30 TAKE ONE CAPSULE BY MOUTH EVERY DAY AT BEDTIME TAKE ONE CAPSULE BY MOUTH EVERY DAY AT BEDTIME SOLD: [facility] 24 HR Bupropion Hydrochloride 150 MG Extended Release Oral T ablet bupropion HCl 08/15/2020 12:00:00 AM EDT 150 mg by mouth completed [id number] bupropion HCl by mouth [id number] 08/15/2020 once a day 150 mg tablet ex tended release 24 hr [id number] Saumya Don [id number] P [facility] ([facility]) 24 HR Bupropion Hydrochloride 300 MG Extended Release Oral T ablet bupropion HCl 08/15/2020 12:00:00 AM EDT 300 mg by mouth completed [id number] bupropion HCl by mouth [id number] 08/15/2020 10/14/2020 once a day 30 300 mg tablet extended release 24 hr [id number] [facility] [id number] [facility]i [facility] ([facility]) 24 HR Bupropion Hydrochloride 300 MG Extended Release Oral T ablet BUPROPION HCL 08/15/2020 12:00:00 AM EDT tablet extended release 24 hr 30 TAKE ONE TABLET BY MOUTH EVERY DAY TAKE ONE TABLET BY MOUTH EVERY DAY SOLD: 09/16/2020 [facility] [place] Carbonate 300 MG Oral Capsule lithium carbonate 12:00:00 AM EDT 300 mg by mouth completed [id number] lithium car bonate by mouth [id number] 08/15/2020 at bedtime 300 mg capsule [id number] [facility] [id number] [facility]) 24 HR Bupropion Hydrochloride 300 MG Extended Release Oral T ablet BUPROPION HCL 08/15/2020 12:00:00 AM EDT tablet extended release 24 hr 30 TAKE ONE TABLET BY MOUTH EVERY DAY TAKE ONE TABLET BY MOUTH EVERY DAY SOLD: 08/17/2020 [facility] 5 mg 07/29/2020 12:00:00 AM EDT capsule 60 TAKE TWO CAPSULES BY MOUTH AT BEDTIME TAKE TWO CAPSULES BY MOUTH AT BEDTIME SOLD: 08/31/2020 [facility] 5 mg 07/29/2020 12:00:00 AM EDT capsule 60 TAKE TWO CAPSULES BY MOUTH AT BEDTIME TAKE TWO CAPSULES BY MOUTH AT BEDTIME SOLD: 09/27/2020 [facility] 5 mg 07/29/2020 12:00:00 AM EDT capsule 60 TAKE TWO CAPSULES BY MOUTH AT BEDTIME TAKE TWO CAPSULES BY MOUTH AT BEDTIME SOLD: 07/31/2020 [facility] 120 mg 06/29/2020 12:00:00 AM EDT tablet 30 TAKE ONE TABLET BY MOUTH EVERY MORNING TAKE ONE TABLET BY MOUTH EVERY MORNING SOLD: 07/31/2020 [facility] 120 mg 06/29/2020 12:00:00 AM EDT tablet 30 TAKE ONE TABLET BY MOUTH EVERY MORNING TAKE ONE TABLET BY MOUTH EVERY MORNING SOLD: 07/04/2020 [facility] 120 mg 04/26/2020 12:00:00 AM EDT tablet 30 TAKE ONE TABLET BY MOUTH EVERY MORNING TAKE ONE TABLET BY MOUTH EVERY MORNING SOLD: 04/26/2020 [facility] 24 HR Bupropion Hydrochloride 150 MG Extended Release Oral T ablet BUPROPION HCL 04/26/2020 12:00:00 AM EDT tablet extended release 24 hr 30 TAKE ONE TABLET BY MOUTH EVERY DAY ALONG WITH 300 MG TABLET TAKE ONE TABLET BY MOUTH EVERY DAY ALONG WITH 300 MG TABLET SOLD: 07/23/2020 [facility] 300 mg 04/26/2020 12:00:00 AM EDT tablet extended release 24 hr 30 TAKE ONE TABLET BY MOUTH EVERY MORNING TAKE ONE TABLET BY MOUTH EVERY MORNING SOLD: 04/26/2020 [facility] 24 HR Bupropion Hydrochloride 150 MG Extended Release Oral T ablet BUPROPION HCL 04/26/2020 12:00:00 AM EDT tablet extended release 24 hr 30 TAKE ONE TABLET BY MOUTH EVERY DAY ALONG WITH 300 MG TABLET TAKE ONE TABLET BY MOUTH EVERY DAY ALONG WITH 300 MG TABLET SOLD: 06/12/2020 [facility] 300 mg 04/26/2020 12:00:00 AM EDT capsule 30 TAKE ONE CAPSULE BY MOUTH AT BEDTIME TAKE ONE CAPSULE BY MOUTH AT BEDTIME SOLD: 07/17/2020 [facility] 5 mg 04/26/2020 12:00:00 AM EDT capsule 60 TAKE TWO CAPSULES BY MOUTH AT BEDTIME TAKE TWO CAPSULES BY MOUTH AT BEDTIME SOLD: 07/04/2020 [facility] 5 mg 04/26/2020 12:00:00 AM EDT capsule 60 TAKE TWO CAPSULES BY MOUTH AT BEDTIME TAKE TWO CAPSULES BY MOUTH AT BEDTIME SOLD: 06/03/2020 [facility] 5 mg 04/26/2020 12:00:00 AM EDT capsule 60 TAKE TWO CAPSULES BY MOUTH AT BEDTIME TAKE TWO CAPSULES BY MOUTH AT BEDTIME SOLD: 04/26/2020 [facility] 120 mg 04/26/2020 12:00:00 AM EDT tablet 30 TAKE ONE TABLET BY MOUTH EVERY MORNING TAKE ONE TABLET BY MOUTH EVERY MORNING SOLD: 06/03/2020 [facility] 300 mg 04/26/2020 12:00:00 AM EDT capsule 30 TAKE ONE CAPSULE BY MOUTH AT BEDTIME TAKE ONE CAPSULE BY MOUTH AT BEDTIME SOLD: 06/19/2020 [facility] 24 HR Bupropion Hydrochloride 150 MG Extended Release Oral T ablet BUPROPION HCL 04/26/2020 12:00:00 AM EDT tablet extended release 24 hr 30 TAKE ONE TABLET BY MOUTH EVERY DAY ALONG WITH 300 MG TABLET TAKE ONE TABLET BY MOUTH EVERY DAY ALONG WITH 300 MG TABLET SOLD: 04/26/2020 [facility] 300 mg 04/26/2020 12:00:00 AM EDT capsule 30 TAKE ONE CAPSULE BY MOUTH AT BEDTIME TAKE ONE CAPSULE BY MOUTH AT BEDTIME SOLD: 04/26/2020 [facility] Lurasidone Hydrochloride 120 MG Oral Tablet [Latuda] Latuda 04/25/2020 12:00:00 AM EDT 120 mg by mouth completed [id number] Latuda by [employer] [id number] 04/25/2020 10/14/2020 once a day 30 120 mg tablet [id number] [facility] [id number] [facility] ([facility]) Lurasidone Hydrochloride 120 MG Oral Tablet [Latuda] Latuda 04/25/2020 12:00:00 AM EDT 120 mg by mouth completed [id number] Latuda by [employer] [id number] 04/25/2020 06/24/2020 once a day 30 120 mg tablet [id number] Saumya Don [id number] [facility]) 300 mg 04/24/2020 12:00:00 AM EDT tablet extended release 24 hr 30 TAKE ONE TABLET BY MOUTH EVERY MORNING TAKE ONE TABLET BY MOUTH EVERY MORNING SOLD: 04/26/2020 [facility] 300 mg 04/24/2020 12:00:00 AM EDT tablet extended release 24 hr 30 TAKE ONE TABLET BY MOUTH EVERY MORNING TAKE ONE TABLET BY MOUTH EVERY MORNING SOLD: 06/12/2020 [facility] 24 HR Bupropion Hydrochloride 300 MG Extended Release Oral T ablet BUPROPION HCL 04/24/2020 12:00:00 AM EDT tablet extended release 24 hr 30 TAKE ONE TABLET BY MOUTH EVERY MORNING TAKE ONE TABLET BY MOUTH EVERY MORNING SOLD: 07/23/2020 [facility] 24 HR Bupropion Hydrochloride 150 MG Extended Release Oral T ablet BUPROPION HCL 04/24/2020 12:00:00 AM EDT tablet extended release 24 hr 30 TAKE ONE TABLET BY MOUTH EVERY DAY TAKE WITH 300MG TABLET TAKE ONE TABLET BY MOUTH EVERY DAY TAKE WITH 300MG TABLET SOLD: 04/26/2020 [facility] 20 mg 04/09/2020 12:00:00 AM EDT tablet 15 TAKE THREE TABLETS BY MOUTH EVERY DAY TAKE THREE TABLETS BY MOUTH EVERY DAY SOLD: 04/09/2020 [facility] 50 mcg 04/08/2020 12:00:00 AM EDT tablet 30 TAKE ONE TABLET BY MOUTH ON AN EMPTY STOMACH IN THE MORNING ONCE A DAY TAKE ONE TABLET BY MOUTH ON AN EMPTY STOMACH IN THE MORNING ONCE A DAY SOLD: 06/19/2020 [facility] 50 mcg 04/08/2020 12:00:00 AM EDT tablet 30 TAKE ONE TABLET BY MOUTH ON AN EMPTY STOMACH IN THE MORNING ONCE A DAY TAKE ONE TABLET BY MOUTH ON AN EMPTY STOMACH IN THE MORNING ONCE A DAY SOLD: 05/22/2020 [facility] 50 mcg 04/08/2020 12:00:00 AM EDT tablet 30 TAKE ONE TABLET BY MOUTH ON AN EMPTY STOMACH IN THE MORNING ONCE A DAY TAKE ONE TABLET BY MOUTH ON AN EMPTY STOMACH IN THE MORNING ONCE A DAY SOLD: 04/08/2020 [facility] Nystatin 100 UNT/MG Topical Powder 100,000 unit/gram NYSTATI N 02/29/2020 12:00:00 AM EDT powder 15 APPLY TO AFFECTED AREA(S) TWO TIMES A DAY APPLY TO AFFECTED AREA(S) TWO TIMES A DAY SOLD: 07/25/2020 [facility] Nystatin 100 UNT/MG Topical Powder 100,000 unit/gram NYSTATI N 02/29/2020 12:00:00 AM EDT powder 15 APPLY TO AFFECTED AREA(S) TWO TIMES A DAY APPLY TO AFFECTED AREA(S) TWO TIMES A DAY SOLD: 05/18/2020 [facility] Nystatin 100 UNT/MG Topical Powder 100,000 unit/gram NYSTATI N 02/29/2020 12:00:00 AM EDT powder 15 APPLY TO AFFECTED AREA(S) TWO TIMES A DAY APPLY TO AFFECTED AREA(S) TWO TIMES A DAY SOLD: 02/29/2020 [facility] 120 mg 02/24/2020 12:00:00 AM EDT tablet 30 TAKE ONE TABLET BY MOUTH EVERY MORNING DIRECTED WITH 20MG TABLET TAKE ONE TABLET BY MOUTH EVERY MORNING A S DIRECTED WITH 20MG TABLET SOLD: 02/26/2020 [facility] 120 mg 02/24/2020 12:00:00 AM EDT tablet 30 TAKE ONE TABLET BY MOUTH EVERY MORNING DIRECTED WITH 20MG TABLET TAKE ONE TABLET BY MOUTH EVERY MORNING A S DIRECTED WITH 20MG TABLET SOLD: 03/22/2020 [facility] Lurasidone Hydrochloride 20 MG Oral Tablet [Latuda] Latuda 02/23/2020 12:00:00 AM EDT [address] [facility] [id number] Latuda 02/23/2020 30 20 mg tablet 29163 [id number] Saumya Don [id number] P [facility] ([facility]) 20 mg 02/23/2020 12:00:00 AM EDT tablet 30 TAKE ONE TABLET BY MOUTH EVERY DAY WITH FOOD WITH 120MG TABLET TAKE ONE TABLET BY MOUTH EVERY DAY WITH FOOD WITH 120MG TABLET SOLD: 02/26/2020 [facility] 20 mg 02/23/2020 12:00:00 AM EDT tablet 30 TAKE ONE TABLET BY MOUTH EVERY DAY WITH FOOD WITH 120MG TABLET TAKE ONE TABLET BY MOUTH EVERY DAY WITH FOOD WITH 120MG TABLET SOLD: 03/30/2020 [facility] Lurasidone Hydrochloride 20 MG Oral Tablet [Latuda] Latuda 02/23/2020 12:00:00 AM EDT 20 mg completed [id number] Latuda 02/23/2020 30 20 mg tablet [id number] Saumya Don [id number] P [facility] ([facility]) 300 mg 02/05/2020 12:00:00 AM EDT capsule 30 TAKE ONE CAPSULE BY MOUTH AT BEDTIME TAKE ONE CAPSULE BY MOUTH AT BEDTIME SOLD: 03/20/2020 [facility] 300 mg 02/05/2020 12:00:00 AM EDT capsule 30 TAKE ONE CAPSULE BY MOUTH AT BEDTIME TAKE ONE CAPSULE BY MOUTH AT BEDTIME SOLD: 02/11/2020 [facility] 300 mg 02/05/2020 12:00:00 AM EDT capsule 30 TAKE ONE CAPSULE BY MOUTH AT BEDTIME TAKE ONE CAPSULE BY MOUTH AT BEDTIME SOLD: 04/19/2020 [facility] 24 HR Bupropion Hydrochloride 150 MG Extended Release Oral T ablet bupropion HCl 01/26/2020 12:00:00 AM EDT 150 mg completed [id number] bupropion HCl 01/26/2020 30 150 mg tablet extended release 24 hr 35917 [id number] Saumya Don [id number] [facility] ([facility]) 5 mg 01/26/2020 12:00:00 AM EDT capsule 60 TAKE TWO CAPSULES BY MOUTH AT BEDTIME TAKE TWO CAPSULES BY MOUTH AT BEDTIME SOLD: 01/28/2020 [facility] 24 HR Bupropion Hydrochloride 150 MG Extended Release Oral T ablet BUPROPION HCL 01/26/2020 12:00:00 AM EDT tablet extended release 24 hr 30 TAKE ONE TABLET BY MOUTH EVERY DAY TAKE ONE TABLET BY MOUTH EVERY DAY SOLD: 03/22/2020 [facility] 24 HR Bupropion Hydrochloride 150 MG Extended Release Oral T ablet BUPROPION HCL 01/26/2020 12:00:00 AM EDT tablet extended release 24 hr 30 TAKE ONE TABLET BY MOUTH EVERY DAY TAKE ONE TABLET BY MOUTH EVERY DAY SOLD: 02/26/2020 [facility] [place] Carbonate 300 MG Oral Capsule lithium carbonate 12:00:00 AM EDT 300 mg completed [id number] lithium carbonate 30 300 mg capsule 74417 [id number] Saumya Don [id number] [facility] ([facility]) Prazosin 5 MG Oral Capsule prazosin 01/26/2020 12:00:00 AM EDT 5 mg completed [id number] prazosin 01/26/2020 30 5 mg capsule 81295 [id number] [id number] Saumya Don [id number] [facility] ([facility]) 24 HR Bupropion Hydrochloride 300 MG Extended Release Oral T ablet bupropion HCl 01/26/2020 12:00:00 AM EDT 300 mg completed [id number] bupropion HCl 01/26/2020 07/24/2020 30 300 mg tablet extended release 24 hr 41074 [id number] Saumya Don [id number] [facility] ([facility]) 5 mg 01/26/2020 12:00:00 AM EDT capsule 60 TAKE TWO CAPSULES BY MOUTH AT BEDTIME TAKE TWO CAPSULES BY MOUTH AT BEDTIME SOLD: 04/06/2020 [facility] 24 HR Bupropion Hydrochloride 150 MG Extended Release Oral T ablet bupropion HCl 01/26/2020 12:00:00 AM EDT 150 mg completed [id number] bupropion HCl 01/26/2020 07/24/2020 30 150 mg tablet extended release 24 hr 41291 [id number] Saumya Don [id number] [facility] ([facility]) 300 mg 01/26/2020 12:00:00 AM EDT tablet extended release 24 hr 30 TAKE ONE TABLET BY MOUTH EVERY MORNING TAKE ONE TABLET BY MOUTH EVERY MORNING SOLD: 03/22/2020 [facility] Prazosin 5 MG Oral Capsule prazosin 01/26/2020 12:00:00 AM EDT 5 mg completed [id number] prazosin 01/26/2020 30 5 mg capsule 64527 [id number] Saumya Don [id number] [facility] ([facility]) 24 HR Bupropion Hydrochloride 150 MG Extended Release Oral T ablet bupropion HCl 01/26/2020 12:00:00 AM EDT 150 mg completed [id number] bupropion HCl 01/26/2020 30 150 mg tablet extended release 24 hr 30989 [id number] Saumya Don [id number] [facility] ([facility]) 24 HR Bupropion Hydrochloride 300 MG Extended Release Oral T ablet bupropion HCl 01/26/2020 12:00:00 AM EDT 300 mg completed [id number] bupropion HCl 01/26/2020 30 300 mg tablet extended release 24 hr 20409 [id number] Saumya Don [id number] [facility] [place] Carbonate 300 MG Oral Capsule lithium carbonate 12:00:00 AM EDT 300 mg completed [id number] lithium carbonate 01/26/2020 07/24/2020 30 300 mg capsule 87478 [id number] [id number] Nya Don [id number] [facility] ([facility]) 24 HR Bupropion Hydrochloride 150 MG Extended Release Oral T ablet BUPROPION HCL 01/26/2020 12:00:00 AM EDT tablet extended release 24 hr 30 TAKE ONE TABLET BY MOUTH EVERY DAY TAKE ONE TABLET BY MOUTH EVERY DAY SOLD: 01/28/2020 [facility] Prazosin 5 MG Oral Capsule prazosin 01/26/2020 12:00:00 AM EDT 5 mg completed [id number] prazosin 01/26/2020 30 5 mg capsule 94295 [id number] Saumya Don [id number] [facility] ([facility]) 5 mg 01/26/2020 12:00:00 AM EDT capsule 60 TAKE TWO CAPSULES BY MOUTH AT BEDTIME TAKE TWO CAPSULES BY MOUTH AT BEDTIME SOLD: 02/26/2020 [facility] Prazosin 5 MG Oral Capsule prazosin 01/26/2020 12:00:00 AM EDT 5 mg completed [id number] prazosin 01/26/2020 07/24/2020 30 5 mg capsule 34220 [id number] [id number] Saumyaester Don [id number] [facility]) 24 HR Bupropion Hydrochloride 300 MG Extended Release Oral T ablet bupropion HCl 01/26/2020 12:00:00 AM EDT 300 mg completed [id number] bupropion HCl 01/26/2020 30 300 mg tablet extended release 24 hr 64467 369704 [id number] Saumyaester Don [id number] [facility]) 300 mg 01/26/2020 12:00:00 AM EDT tablet extended release 24 hr 30 TAKE ONE TABLET BY MOUTH EVERY MORNING TAKE ONE TABLET BY MOUTH EVERY MORNING SOLD: 02/26/2020 [facility] [place] Carbonate 300 MG Oral Capsule lithium carbonate 12:00:00 AM EDT 300 mg completed [id number] lithium carbonate 30 300 mg capsule 57977 [id number] [id number] Saumyaester Don [id number] [facility] 300 mg 01/26/2020 12:00:00 AM EDT tablet extended release 24 hr 30 TAKE ONE TABLET BY MOUTH EVERY MORNING TAKE ONE TABLET BY MOUTH EVERY MORNING SOLD: 01/28/2020 [facility] 120 mg 01/24/2020 12:00:00 AM EDT tablet 30 TAKE ONE TABLET BY MOUTH EVERY MORNING DIRECTED WITH 20MG TABLET TAKE ONE TABLET BY MOUTH EVERY MORNING A S DIRECTED WITH 20MG TABLET SOLD: 01/26/2020 [facility] 50 mcg 01/22/2020 12:00:00 AM EDT tablet 30 TAKE ONE TABLET BY MOUTH EVERY MORNING ON AN EMPTY STOMACH TAKE ONE TABLET BY MOUTH EVERY MORNING O N AN EMPTY STOMACH SOLD: 02/17/2020 [facility] 50 mcg 01/22/2020 12:00:00 AM EDT tablet 30 TAKE ONE TABLET BY MOUTH EVERY MORNING ON AN EMPTY STOMACH TAKE ONE TABLET BY MOUTH EVERY MORNING O N AN EMPTY STOMACH SOLD: 01/23/2020 [facility] 20 mg 01/22/2020 12:00:00 AM EDT tablet 30 TAKE ONE TABLET BY MOUTH EVERY DAY WITH FOOD WITH 120MG TABLET TAKE ONE TABLET BY MOUTH EVERY DAY WITH FOOD WITH 120MG TABLET SOLD: 01/23/2020 [facility] 50 mcg 01/22/2020 12:00:00 AM EDT tablet 30 TAKE ONE TABLET BY MOUTH EVERY MORNING ON AN EMPTY STOMACH TAKE ONE TABLET BY MOUTH EVERY MORNING O N AN EMPTY STOMACH SOLD: 03/20/2020 [facility] Lurasidone Hydrochloride 20 MG Oral Tablet [Latuda] Latuda 01/19/2020 12:00:00 AM EST 20 mg by mouth completed [id number] Latuda by mouth [id number] 01/19/2020 02/18/2020 once a day 30 20 mg tablet 52879 [id number] Saumya Don [id number] [facility] Lurasidone Hydrochloride 20 MG Oral Tablet [Latuda] Latuda 01/19/2020 12:00:00 AM EST 20 mg by mouth completed [id number] Latuda by mouth [id number] 01/19/2020 02/18/2020 once a day 30 20 mg tablet 31973 [id number] [phone] [id number] Saumya Don [id number] [facility]) 120 mg 12/30/2019 12:00:00 AM EST tablet 30 TAKE ONE TABLET BY MOUTH EVERY MORNING DIRECTED WITH 20 MG TAKE ONE TABLET BY MOUTH EVERY MORNING A S DIRECTED WITH 20 MG SOLD: 01/01/2020 [facility] Lurasidone Hydrochloride 120 MG Oral Tablet [Latuda] Latuda 12/29/2019 12:00:00 AM EST 120 mg by mouth completed [id number] Latuda by mout h [id number] 12/29/2019 02/18/2020 every morning 30 120 mg tablet as directed 7415 9 [id number] Saumya Don [id number] [facility]) Lurasidone Hydrochloride 120 MG Oral Tablet [Latuda] Latuda 12/29/2019 12:00:00 AM EST 120 mg by mouth completed [id number] Latuda by thania metzger [id number] 12/29/2019 02/18/2020 every morning 30 120 mg tablet as directed 7415 9 [id number] Saumya Don [id number] Psychiatric/Mental Health [facility] 0.25-35 mg-mcg 12/21/2019 12:00:00 AM EST tablet 28 TAKE ONE TABLET BY MOUTH DAILY TAKE ONE TABLET BY MOUTH DAILY SOLD: 12/22/2019 [facility] 50 mcg 12/01/2019 12:00:00 AM EST tablet 30 TAKE ONE TABLET BY MOUTH EVERY MORNING ON AN EMPTY STOMACH TAKE ONE TABLET BY MOUTH EVERY MORNING O N AN EMPTY STOMACH SOLD: 12/02/2019 [facility] 50 mcg 12/01/2019 12:00:00 AM EST tablet 30 TAKE ONE TABLET BY MOUTH EVERY MORNING ON AN EMPTY STOMACH TAKE ONE TABLET BY MOUTH EVERY MORNING O N AN EMPTY STOMACH SOLD: 07/28/2020 [facility] 50 mcg 12/01/2019 12:00:00 AM EST tablet 30 TAKE ONE TABLET BY MOUTH EVERY MORNING ON AN EMPTY STOMACH TAKE ONE TABLET BY MOUTH EVERY MORNING O N AN EMPTY STOMACH SOLD: 12/27/2019 [facility] 0.25-35 mg-mcg 11/27/2019 12:00:00 AM EST tablet 28 TAKE ONE TABLET BY MOUTH EVERY DAY TAKE ONE TABLET BY MOUTH EVERY DAY SOLD: 11/29/2019 [facility] 20 mg 11/22/2019 12:00:00 AM EST tablet 30 TAKE ONE TABLET BY MOUTH EVERY DAY WITH LATUDA 120 MG DOSE TAKE ONE TABLET BY MOUTH EVERY DAY WITH LATUDA 120 MG DOSE SOLD: 12/27/2019 [facility] 20 mg 11/22/2019 12:00:00 AM EST tablet 30 TAKE ONE TABLET BY MOUTH EVERY DAY WITH LATUDA 120 MG DOSE TAKE ONE TABLET BY MOUTH EVERY DAY WITH LATUDA 120 MG DOSE SOLD: 11/22/2019 [facility] 300 mg 11/19/2019 12:00:00 AM EST capsule 30 TAKE ONE CAPSULE BY MOUTH AT BEDTIME TAKE ONE CAPSULE BY MOUTH AT BEDTIME SOLD: 01/16/2020 [facility] 300 mg 11/19/2019 12:00:00 AM EST capsule 30 TAKE ONE CAPSULE BY MOUTH AT BEDTIME TAKE ONE CAPSULE BY MOUTH AT BEDTIME SOLD: 12/19/2019 [facility] 300 mg 11/19/2019 12:00:00 AM EST capsule 30 TAKE ONE CAPSULE BY MOUTH AT BEDTIME TAKE ONE CAPSULE BY MOUTH AT BEDTIME SOLD: 11/20/2019 [facility] 5 mg 11/05/2019 12:00:00 AM EST tablet 30 TAKE ONE TABLET BY MOUTH AT NIGHT, DO NOT EXCEED ONE TABLET MAXIMUM DAILY DOSE = ONE TABLET TAKE ONE TABLET BY MOUTH AT NIGHT, DO NOT EXCEED ONE TABLET MAXIMUM DAILY DOSE = ONE TABLET SOLD: 11/05/2019 [facility] 300 mg 10/31/2019 12:00:00 AM EST tablet extended release 24 hr 30 TAKE ONE TABLET BY MOUTH EVERY MORNING TAKE ONE TABLET BY MOUTH EVERY MORNING SOLD: 12/27/2019 [facility] 300 mg 10/31/2019 12:00:00 AM EST tablet extended release 24 hr 30 TAKE ONE TABLET BY MOUTH EVERY MORNING TAKE ONE TABLET BY MOUTH EVERY MORNING SOLD: 11/29/2019 [facility] 300 mg 10/31/2019 12:00:00 AM EST tablet extended release 24 hr 30 TAKE ONE TABLET BY MOUTH EVERY MORNING TAKE ONE TABLET BY MOUTH EVERY MORNING SOLD: 10/31/2019 [facility] 50 mcg 10/29/2019 12:00:00 AM EST tablet 30 TAKE ONE TABLET BY MOUTH EVERY MORNING TAKE ONE TABLET BY MOUTH EVERY MORNING SOLD: 10/31/2019 [facility] 5 mg 10/28/2019 12:00:00 AM EST capsule 60 TAKE TWO CAPSULES BY MOUTH AT BEDTIME TAKE TWO CAPSULES BY MOUTH AT BEDTIME SOLD: 11/29/2019 [facility] 24 HR Bupropion Hydrochloride 150 MG Extended Release Oral T ablet BUPROPION HCL 10/28/2019 12:00:00 AM EST tablet extended release 24 hr 30 TAKE ONE TABLET BY MOUTH EVERY DAY TAKE WITH 350MG TABLET TAKE ONE TABLET BY MOUTH EVERY DAY TAKE WITH 350MG TABLET SOLD: 12/27/2019 [facility] 5 mg 10/28/2019 12:00:00 AM EST capsule 60 TAKE TWO CAPSULES BY MOUTH AT BEDTIME TAKE TWO CAPSULES BY MOUTH AT BEDTIME SOLD: 12/27/2019 [facility] 24 HR Bupropion Hydrochloride 150 MG Extended Release Oral T ablet BUPROPION HCL 10/28/2019 12:00:00 AM EST tablet extended release 24 hr 30 TAKE ONE TABLET BY MOUTH EVERY DAY TAKE WITH 350MG TABLET TAKE ONE TABLET BY MOUTH EVERY DAY TAKE WITH 350MG TABLET SOLD: 12/02/2019 [facility] 5 mg 10/28/2019 12:00:00 AM EST capsule 60 TAKE TWO CAPSULES BY MOUTH AT BEDTIME TAKE TWO CAPSULES BY MOUTH AT BEDTIME SOLD: 10/31/2019 [facility] 120 mg 10/28/2019 12:00:00 AM EST tablet 30 TAKE ONE TABLET BY MOUTH EVERY EVENING WITH MEALS TAKE ONE TABLET BY MOUTH EVERY EVENING WITH MEALS SOLD : 10/31/2019 [facility] 150 mg 10/28/2019 12:00:00 AM EST tablet extended release 24 hr 30 TAKE ONE TABLET BY MOUTH EVERY DAY TAKE WITH 350MG TABLET TAKE ONE TABLET BY MOUTH EVERY DAY TAKE WITH 350MG TABLET SOLD: 10/31/2019 [facility] 20 mg 10/28/2019 12:00:00 AM EST tablet 30 TAKE ONE TABLET BY MOUTH EVERY DAY WITH MEALS TAKE ONE TABLET BY MOUTH EVERY DAY WITH MEALS SOLD: 10/31/2019 [facility] 120 mg 10/28/2019 12:00:00 AM EST tablet 30 TAKE ONE TABLET BY MOUTH EVERY EVENING WITH MEALS TAKE ONE TABLET BY MOUTH EVERY EVENING WITH MEALS SOLD : 11/29/2019 [facility] Prazosin 5 MG Oral Capsule prazosin 10/27/2019 12:00:00 AM EST 5 mg by mouth completed [id number] prazosin by mouth [id number] 10/27/201910/2020 at bedtime 30 5 mg capsule 29807 [id number] Saumya Don [id number] [facility] Prazosin 5 MG Oral Capsule prazosin 10/27/2019 12:00:00 AM EST 5 mg by mouth completed [id number] prazosin by mouth [id number] 10/27/201910/2020 at bedtime 30 5 mg capsule 32459 [id number] Saumya [place] [id number] [facility] Prazosin 5 MG Oral Capsule prazosin 10/27/2019 12:00:00 AM EST 5 mg by mouth completed [id number] prazosin by mouth [id number] 10/27/201910/2020 at bedtime 30 5 mg capsule 49251 [id number] [id number] Saumya [place] [id number] [facility] Lurasidone Hydrochloride 120 MG Oral Tablet [Latuda] Latuda 10/27/2019 12:00:00 AM EST 120 mg by mouth completed [id number] Latuda by mout h [id number] 10/27/2019 12/26/2019 every evening 30 120 mg tablet with meals 23851 742990 [id number] Saumya Don [id number] [facility] Lurasidone Hydrochloride 120 MG Oral Tablet [Latuda] Latuda 10/27/2019 12:00:00 AM EST 120 mg by mouth completed [id number] Latuda by mout h [id number] 10/27/2019 12/26/2019 every evening 30 120 mg tablet with meals 43696 [id number] Saumya Don [id number] [facility] [facility] 24 HR Bupropion Hydrochloride 150 MG Extended Release Oral T ablet bupropion HCl 10/27/2019 12:00:00 AM EST 150 mg by mouth completed [id number] bupropion HCl by mouth [id number] 10/27/2019 01/25/2020 once a day 30 150 mg tablet extended release 24 hr [id number] Saumya Don [id number] [facility]) 24 HR Bupropion Hydrochloride 150 MG Extended Release Oral T ablet bupropion HCl 10/27/2019 12:00:00 AM EST 150 mg by mouth completed [id number] bupropion HCl by mouth [id number] 10/27/2019 01/25/2020 once a day 30 150 mg tablet extended release 24 hr [id number] Saumya Don [id number] ([facility]) 0.25-35 mg-mcg 10/04/2019 12:00:00 AM EST tablet 28 TAKE ONE TABLET BY MOUTH EVERY DAY TAKE ONE TABLET BY MOUTH EVERY DAY SOLD: 11/05/2019 [facility] Nystatin 100 UNT/MG Topical Powder 100,000 unit/gram NYSTATI N 05/13/2019 12:00:00 AM EDT powder 15 APPLY TO AFFECTED AREA TW O TIMES A DAY APPLY TO AFFECTED AREA TWO TIMES A DAY SOLD: 12/21/2019 [facility] Insurance Providers Payer name Policy type / Coverage type Policy ID Covered libertarian ID Covered libertarian's relationship to fuentes Policy Fuentes Plan Information EMEDNY [id number] SP [id number] UN COMMUNITY PLAN [facility] [id number] SP [id number] [facility] [id number] Self [id number] EMEDNY [id number] SP [id number] UN COMMUNITY PLAN [facility] [id number] SP [id number] Self Pay P none S none MEDICAID [id number] SP [id number] [place] 020/520 [id number] SP [id number] [facility] [id number] SP [id number] MEDICAID [facility] [id number] SP [id number] BLUE CROSS [id number] SP [id number] SELF PAY [place] 020/520 [id number] SP [id number] [facility] [id number] SP [id number] [place]BS [place] PPO 302/307 [id number] SP [id number] SELF PAY MEDICAID [facility] [id number] SP [id number] BLUE CROSS [id number] SP [id number] ANS-Medicaid [id number] ANS-Medicaid [id number] ANSI-Medicaid [id number] ANSI-Medicaid [id number] ANSI-Medicaid [id number] ANSI-Medicaid [id number] [facility] COMMUNITY PLAN [id number] SP [id number] BLUE CROSS [id number] SP [id number] ANSI-Medicaid [id number] ANSI-Medicaid [id number] Self Pay P UNAVAILABLE S [facility] O [id number] S [id number] ANSI-Medicaid [id number] ANSI-Medicaid [id number] ANSI-Medicaid [id number] ANSI-Medicaid [id number] ANSI-Medicaid [id number] ANSI-Medicaid [id number] ANSI-Medicaid [id number] ANSI-Medicaid [id number] ANSI-Medicaid [id number] ANSI-Medicaid [id number] ANSI-Medicaid [id number] ANSI-Medicaid [id number] ANSI-Medicaid [id number] ANSI-Medicaid [id number] ANSI-Medicaid [id number] ANSI-Medicaid [id number] [facility] [id number] SP [id number] [facility]) O [id number] S [id number] [facility] Health Maintenance Organization (HMO) [id number] Self [id number] UNAVAILABLE UNAVAILA BLE SELF PAY UNAVAILABLE UNAVAILA BLE MEDICAID [id number] [facility] OFFICE OF MENTAL HEALTH [id number] S [id number] [facility] OFFICE OF MENTAL HEALTH [id number] S [id number] [facility] O [id number] S [id number] [facility] S [id number] S [id number] BLUE CROSS [place] PLAN [id number] SP [id number] O BLUE [id number] SP [id number] O BLUE [id number] SP [id number] Problems, Conditions, and Diagnoses Code Display Name Description Problem Type Effective Dates Data Source(s) F31.9 Bipolar disorder, unspecified Unspecified Bipola r and Related Disorder Condition 12/26/2020 12:00:00 AM EST [facility] ([facility]) F43.12 Post-traumatic stress disorder, chronic Post-traumatic stress disorder, chronic Condition 12/26/2020 12:00:00 AM EST [facility] ([facility]) E78.2 Mixed hyperlipidemia Mixed hyperlipidemia Problem 08/19/2020 12:00:00 AM EDT eCW1 ([facility]) Z71.3 Dietary counseling and surveillance Dietary coun seling and surveillance Diagnosis 09/27/2020 08:41:31 AM [facility] Z68.44 Body mass index (BMI) 60.0-69.9, adult B tono mass index (BMI) 60.0-69.9, adult Diagnosis 09/27/2020 08:41:31 AM [facility] E66.01 Morbid (severe) obesity due to excess ca lories Morbid (severe) obesity due to excess calories Diagnosis 09/27/2020 08:41:31 AM [facility] Surgeries/Procedures Procedure Description Date Indications Data Source(s) [facility] Telemed E/M Lvl 3--Est pt 12/26/2020 12:00:00 AM EST - 12/26/2020 12:00:00 AM EST [facility] ([facility]) Telemed A/O 30" 12/26/2020 12:00:00 AM EST [facility] ([facility]) [facility] Telemed E/M Lvl 3--Est pt 12/26/2020 12:00:[address] [facility] ([facility]) [id number]"Psychotherapy 12:00:00 AM EST - 12/25/2020 12:00:00 AM EST [facility] ([facility]) [id number]"Psychotherapy 12/24/2020 12:00:00 AM EST [facility] ([facility]) Extended Individual Psychotherapy - 45 min 12/03/2020 12:00:00 AM EST - 12/03/2020 12:00:00 AM EST [facility] ([facility]) Extended Individual Psychotherapy - 45 min 12:00:00 AM EST [facility] ([facility]) Extended Individual Psychotherapy - 45 min 11/25/2020 12:00:00 AM EST - 11/25/2020 12:00:00 AM EST [facility] ([facility]) Extended Individual Psychotherapy - 45 min 12:00:00 AM EST [facility] ([facility]) Extended Individual Psychotherapy - 45 min 11/19/2020 12:00:00 AM EST - 11/19/2020 12:00:00 AM EST [facility] ([facility]) Extended Individual Psychotherapy - 45 min 12:00:00 AM EST [facility] ([facility]) OFFICE OUTPATIENT VISIT 15 MINUTES 11/06 12:00:00 AM EST - 11/06/2020 12:00:00 AM EST [facility] ([facility]) Psychotherapy ADD ON - 30 Minutes 11/06/2020 12:00:00 AM EST [facility] ([facility]) OFFICE OUTPATIENT VISIT 15 MINUTES 11/06/2020 12:00:00 AM EST [facility] ([facility]) Extended Individual Psychotherapy - 45 min 11/05/2020 12:00:00 AM EST - 11/05/2020 12:00:00 AM EST [facility] ([facility]) Extended Individual Psychotherapy - 45 min 0 12:00:00 AM EST [facility] ([facility]) Extended Individual Psychotherapy - 45 min 10/22/2020 12:00:00 AM EST - 10/22/2020 12:00:00 AM EST [facility] ([facility]) Extended Individual Psychotherapy - 45 min 0 12:00:00 AM EST [facility] ([facility]) Extended Individual Psychotherapy - 45 min 09/25/2020 12:00:00 AM EST - 09/25/2020 12:00:00 AM EST [facility] ([facility]) Extended Individual Psychotherapy - 45 min 0 12:00:00 AM EST [facility] ([facility]) Extended Individual Psychotherapy - 45 min 09/10/2020 12:00:00 AM EDT - 09/10/2020 12:00:00 AM EDT [facility] ([facility]) Extended Individual Psychotherapy - 45 min 0 12:00:00 AM EDT [facility] ([facility]) MHC Telemed E/M Lvl 3--Est pt 08/27/2020 12:00:00 AM EDT - 08/27/2020 12:00:00 AM EDT [facility] ([facility]) Telemed A/O 30" 08/27/2020 12:00:00 AM EDT [facility] ([facility]) MHC Telemed E/M Lvl 3--Est pt 08/27/2020 12:00:00 AM E DT [facility] ([facility]) ECG ROUTINE ECG W/LEAST 12 LDS W/I&R 08/19/2020 12:00: 00 AM EDT eCW1 ([facility]) [id number]"Psychotherapy 0 12:00:00 AM EDT - 08/19/2020 12:00:00 AM EDT [facility] ([facility]) [id number]"Psychotherapy 08/16/2020 12:00:00 AM EDT [facility] ([facility]) MHC Telemed E/M Lvl 3--Est pt 05/14/2020 12:00:00 AM EDT - 05/14/2020 12:00:00 AM EDT [facility] ([facility]) Telemed A/O 30" 05/14/2020 12:00:00 AM EDT [facility] ([facility]) MHC Telemed E/M Lvl 3--Est pt 05/14/2020 12:00:00 AM E DT [facility] ([facility]) TEMPMHCTelemed 20" psychotherapy 12:00:00 AM EDT - 02/28/2020 12:00:00 AM EDT [facility] ([facility]) TEMPMHCTelemed 20" psychotherapy 02/27/2020 12:00:00 A M EDT [facility] ([facility]) TEMPMHCTelemed 30" Psychotherapy 12:00:00 AM EDT - 02/13/2020 12:00:00 AM EDT [facility] ([facility]) TEMPMHCTelemed 30" Psychotherapy 02/13/2020 12:00:00 A M EDT [facility] ([facility]) TEMPMHCTelemed 30" Psychotherapy 12:00:00 AM EDT - 01/31/2020 12:00:00 AM EDT [facility] ([facility]) TEMPMHCTelemed 30" Psychotherapy 01/30/2020 12:00:00 A M EDT [facility] ([facility]) Extended Individual Psychotherapy - 45 min 01/16/2020 12:00:00 AM EST - 01/16/2020 12:00:00 AM EST [facility] ([facility]) Extended Individual Psychotherapy - 45 min 0 12:00:00 AM EST [facility] ([facility]) OFFICE OUTPATIENT VISIT 15 MINUTES 01/15 12:00:00 AM EST - 01/16/2020 12:00:00 AM EST [facility] ([facility]) OFFICE OUTPATIENT VISIT 15 MINUTES 01/16/2020 12:00:00 AM EST [facility] ([facility]) OFFICE OUTPATIENT VISIT 15 MINUTES 11/17 12:00:00 AM EST - 11/17/2019 12:00:00 AM EST [facility] ([facility]) OFFICE OUTPATIENT VISIT 15 MINUTES 11/17/2019 12:00:00 AM EST [facility] ([facility]) Brief Individual Psychotherapy - 30 min 11/16/2019 12:00:00 AM EST - 11/16/2019 12:00:00 AM EST [facility] ([facility]) Brief Individual Psychotherapy - 30 min 11/14/2019 12: 00:00 AM EST [facility] ([facility]) Results ID Date Data Source [id number] 09/27/2020 03:56:39 PM [facility] Name Value Range Interpretation Code Description Data Lisa rce(s) Supporting Document(s) Progress Note [facility] ZYIPWf6bDlXBLhRe17/DMFbiLFYok1KnONecDJs1WOuyUUXsY2PoNLT8eT8dSEO7TVdAXuZtJtDxBWPp lbm [file] ICAgICAgICAgICAgICAgICAgICAgICAgICAgICAgICAgICAgICAgICAgICAgICAgICAgICAgICAgICAg ICAgICAgICAgICAgICAgICAgICAgICAgICAgICAgIC AgICAgICAgDQogICAgICAgICAgICAgICAgICAgICAgICAgICAgICAgICAgICAgICAgICAgICAgICAgIC AgICAgICAgICAgICAgICAgICAgICAgICAgICAgICAgICAgICAgICAgICAgICAgICAgDQogICAgICAgIC AgICAgICAgICAgICAgICAgICAgICAgICAgICAgICAg ICAgICAgICAgICAgICAgICAgICAgICAgICAgICAgICAgICAgICAgICAgICAgICAgICAgICAgICAgICAg DQogICAgICAgICAgICAgICAgICAgICAgICAgICAgICAgICAgICAgICAgICAgICAgICAgICAgICAgICAg ICAgICAgICAgICAgICAgICAgICAgICAgICAgICAgIC AgICAgICAgICAgDQogICAgICAgICAgICAgICAgICAgICAgICAgICAgICAgICAgICAgICAgICAgICAgIC AgICAgICAgICAgICAgICAgICAgICAgICAgICAgICAgICAgICAgICAgICAgICAgICAgICAgDQogICAgIC AgICAgICAgICAgICAgICAgICAgICAgICAgICAgICAg ICAgICAgICAgICAgICAgICAgICAgICAgICAgICAgICAgICAgICAgICAgICAgICAgICAgICAgICAgICAg ICAgDQogICAgICAgICAgICAgICAgICAgICAgICAgICAgICAgICAgICAgICAgICAgICAgICAgICAgICAg ICAgICAgICAgICAgICAgICAgICAgICAgICAgICAgIC AgICAgICAgICAgICAgDQogICAgICAgICAgICAgICAgICAgICAgICAgICAgICAgICAgICAgICAgICAgIC AgICAgICAgICAgICAgICAgICAgICAgICAgICAgICAgICAgICAgICAgICAgICAgICAgICAgICAgDQogIC AgICAgICAgICAgICAgICAgICAgICAgICAgICAgICAg ICAgICAgICAgICAgICAgICAgICAgICAgICAgICAgICAgICAgICAgICAgICAgICAgICAgICAgICAgICAg ICAgICAgDQogICAgICAgICAgICAgICAgICAgICAgICAgICAgICAgICAgICAgICAgICAgICAgICAgICAg ICAgICAgICAgICAgICAgICAgICAgICAgICAgICAgIC YyEYLkQFZlPTXtVUXhTPZcRRt8F8bcNDZePPDuMB8mZCk6Uh9+VMqZHkNiHEA8lvPrmB2NQU4kw0GrTQ rlRVRlm5TfKSb1BC6VDFOrFDkiAO1MIFsggy6PTEPhWJYmaJCHj9nrSdDbSWU1XZKfQhcpNV3OREBjH8 qltoVuFVDoAPCSPI4ULtKpG1VakE25AJWOQt5+DQpl voEnWetSDdHxBCTzb2YxRKl7SL4SFBGoQzdvl6XxTyKyEOJATWbqJS9KUES3FUChQJIjCf0XCMFpR664 bvYwQB2SBo5YBeZfGB9kos8AFqFiMUWsEzrSOkp1VZrxPB3NwDKzJLmGts6dauGzdyORf7YuwfHtaNSP VKKugXLxSNULUFE6gT5dRLGZNDFXIG2nFQCpIWTtMY QiJsCaXBAcDahlDGTAVXgCGhFxA1Ifz8LkXrS6GCDeOgYvSAdxNOVnZyK1YI31vHbzYM4IYXSzSDDdBT 73BVJsZYStTs8ZDg9WXvLlZK7tpm7AYgRiQTOrRyuUGaa6XRexDH3ReYGaI1PbwGIjo7rNVpWtR9MCGX UsDCTxGg2ULYRdFsKpKXAsVKwdNI5yISAjZQFGaRwc bzS4WG5COG1orbHlVD5VIkPjXi7bGl2CUnKpH1BcH4VsEUTxUVMQQDmkAQ8UDNxaCU6pQG3Ce3KBsBPw cC4xcl8LMTGnDVSeDludzs2CLinsZ6Q1wIcyTPTmUdLaBHYWCGsfYG3YOGDzREB1YWBpMWAcKHYJOhIf Y33gSH6CT6Luw66mXmT5WPTvDeItGQveVZ15qQghwx IkwPQavQdzKZ7NQr9+QDnlfyMzSalEWqalKZTOCaZcZhWAWrOcEBTdPFEeUWCtNtP4XcThQi3TFENiFM XkVRWzBuVuWRZrLQUwZIwiWEBrFFJsSkw4UWSbXJZrKI7WDzBpQSTuNxAqEygsTRFxUKTuui5OAFGxHV RzPUF6VyOkWXXlBFPfUJwfKQDjDHAqFYF9HAMcKUQm UM5WOnAlEZAqBGGjHghdWUNfJBYduc2QDBWpCDVjQOh9FmIqHRDtIBHlENsrVOAmMMY0QGzlETVaVILt WA4LTsDqIYFsFOUcVcMeDXZrRZRzot7PYFTrWXMiEaEdTNZzVDHcKPUdTTykMBQuVPB0KCNiJQUrVYGo MM9SQsZeVOBuWMN9ZGHxJFDkOSAqsd0NPNJgTKChTS K0BOQsYZSoTMLqTUleMEEvFKY6YwewXTRkZNKxFT3WFvPwBPTpOLk6FPYhDCEbITAewk5YWVXhFCLtSM asRZXaHXUuXOWhZEhpRDXuMEY6DQp1QSRpQWHyKX5EEjGlRPVvQPi9SjBeQCNkWSTsaq4TTUUwXIPiZX FyJSCpBQUzRQSsCGfsVOIqWJCvPojxKJQdPBJjYH2P HaBfUMKoIyB0KTyyCXJnHITqir2RLXJqEUPuYgNpMoNlBQGyQEKnRCrqZXKgPWBpKKw7CGDlAMAcUO7A LlChYDRuAeVhIQOpNGTvCZColy8IfTQljDbotk4CVEqMMe9UaFcvIMQ1RMinOd8gnQLkPJGeXGNNZz5Z ceJzIDPlVDQOTVxjMSEzUKK2QKCvJRBuKYyrTKmzZM TtGQA4NeNiStafRlBrQSJqBoR0CnXpDkL2BHBqQBYvRTD8SHSkDBogO5PzH9SbYmX7XbN+CB4lIQw+Pg 9Td0McptH5rvOkRVnoNjX8Nw0YHIWIG5KTAi== ID Date Data Source CHLAMYDIA & GC DNA AMPLIFICAT 09/05/2020 03:36:13 AM EDT eCW 1 ([facility]) Name Value Range Interpretation Code Description Data Lisa rce(s) Supporting Document(s) Chlamydia trachomatis rRNA [Presence] in Unspecified specimen by Probe and target amplification method NEGATIVE eCW1 ([facility]) ID Date Data Source PAP REQUEST FOR SERVICE 09/04/2020 02:57:17 AM EDT eCW1 ([facility]) Name Value Range Interpretation Code Description Data Lisa rce(s) Supporting Document(s) eCW1 ([facility]) ID Date Data Source LIPID PANEL (CARDIAC RISK) 08/23/2020 11:41:38 AM EDT eCW1 ( [facility]) Name Value Range Interpretation Code Description Data Lisa rce(s) Supporting Document(s) Cholesterol [Moles/volume] in Serum or Plasma 197 CHOLESTEROL LEVEL eCW1 ([facility]) Cholesterol in HDL [Moles/volume] in Serum or Plasma 40 HDL CHOLESTEROL eCW1 ([facility]) Triglyceride [Mass/volume] in Serum or Plasma by calculation 139 TRIGLYCERIDES LEVEL eC ([facility]) 4.925 CHOLESTEROL RISK RATIO eCW1 ([facility]) Cholesterol in LDL [Mass/volume] in Serum or Plasma by calculation 129 LDL CHOLESTEROL eC1 ([facility]) 157 NON-HDL-C eCW1 ([facility]) ID Date Data Source [id number] 08/23/2020 11:41:38 AM EDT eCW1 ([facility]) Name Value Range Interpretation Code Description Data Lisa rce(s) Supporting Document(s) Hemoglobin A1c/Hemoglobin.total in Blood 5.6 HEMOGLOBIN A1c eC1 ([facility]) ID Date Data Source FREE T4 & TSH PANEL 08/23/2020 11:41:38 AM EDT eCW1 ([facility]) Name Value Range Interpretation Code Description Data Lisa rce(s) Supporting Document(s) 0.611 THYROID STIMULATING HORMONE eC W1 ([facility]) 1.35 FREE T4 eCW1 ([facility]) ID Date Data Source Comprehensive Metabolic Profile (CMP) 08/23/2020 11:41:38 AM EDT eCW1 ([facility]) Name Value Range Interpretation Code Description Data Lisa rce(s) Supporting Document(s) > 60.0 eCW1 ([facility]) 0.81 CREATININE FOR GFR eCW1 ([facility]) 76 GLUCOSE, FASTING eCW1 ([facility]) 10 BLOOD UREA NITROGEN eCW1 ([facility]) 5.1 POTASSIUM SERUM eCW1 ([facility]) 107 CHLORIDE LEVEL eCW1 ([facility]) 141 SODIUM LEVEL eCW1 ([facility]) 29 CARBON DIOXIDE LEVEL eCW1 ([facility]) 14 AST/SGOT eCW1 ([facility]) 39 ALT/SGPT eCW1 ([facility]) 94 ALKALINE PHOSPHATASE eCW1 ([facility]) 9.1 CALCIUM LEVEL eCW1 ([facility]) 0.4 BILIRUBIN,TOTAL eCW1 ([facility]) 3.5 ALBUMIN eCW1 ([facility]) 7.0 TOTAL PROTEIN eCW1 ([facility]) 1.0 ALBUMIN/GLOBULIN RATIO eCW1 ([facility]) Procedure Social History Code Duration Value Status Description Data Source(s ) Smoking 12/26/2020 12:00:00 AM EST Unknown if ever smoked comp leted Unknown if ever smoked [facility] ([facility]) Smoking 12/25/2020 12:00:00 AM EST Unknown if ever smoked comp leted Unknown if ever smoked [facility] ([facility]) Smoking 12/03/2020 12:00:00 AM EST Unknown if ever smoked comp leted Unknown if ever smoked [facility] ([facility]) Smoking 11/26/2020 12:00:00 AM EST Never Smoker completed Never S moker eCW1 ([facility]) Smoking 11/25/2020 12:00:00 AM EST Unknown if ever smoked comp leted Unknown if ever smoked [facility] ([facility]) Smoking 11/19/2020 12:00:00 AM EST Unknown if ever smoked comp leted Unknown if ever smoked [facility] ([facility]) Smoking 11/06/2020 12:00:00 AM EST Unknown if ever smoked comp leted Unknown if ever smoked [facility] ([facility]) Smoking 11/05/2020 12:00:00 AM EST Unknown if ever smoked comp leted Unknown if ever smoked [facility] ([facility]) Smoking 10/22/2020 12:00:00 AM EST Unknown if ever smoked comp leted Unknown if ever smoked [facility] ([facility]) Smoking 09/25/2020 12:00:00 AM EST Unknown if ever smoked comp leted Unknown if ever smoked [facility] ([facility]) Smoking 09/10/2020 12:00:00 AM EDT Unknown if ever smoked comp leted Unknown if ever smoked [facility] ([facility]) Alcohol intake 09/06/2020 12:00:00 AM EDT Lifetime non-drinker (finding) completed Lifetime non-drinker (finding) [facility] Tobacco use and exposure 09/06/2020 12:00:00 AM EDT Never used co mpleted Never used [facility] Smoking 09/06/2020 12:00:00 AM EDT Never smoker completed Never s [facility] Smoking 08/28/2020 12:00:00 AM EDT Never Smoker completed Never S moker eCW1 ([facility]) Smoking 08/28/2020 12:00:00 AM EDT Never Smoker completed Never S moker eCW1 ([facility]) Smoking 08/28/2020 12:00:00 AM EDT Never Smoker completed Never S moker eCW1 ([facility]) Smoking 08/28/2020 12:00:00 AM EDT Never Smoker completed Never S moker eCW1 ([facility]) Smoking 08/28/2020 12:00:00 AM EDT Never Smoker completed Never S mukul eCW1 ([facility]) Smoking 08/27/2020 12:00:00 AM EDT Unknown if ever smoked comp leted Unknown if ever smoked [facility] ([facility]) Smoking 08/19/2020 12:00:00 AM EDT Unknown if ever smoked comp leted Unknown if ever smoked [facility] ([facility]) Smoking 05/14/2020 12:00:00 AM EDT Unknown if ever smoked comp leted Unknown if ever smoked [facility] ([facility]) Smoking 02/28/2020 12:00:00 AM EDT Unknown if ever smoked comp leted Unknown if ever smoked [facility] ([facility]) Smoking 02/13/2020 12:00:00 AM EDT Unknown if ever smoked comp leted Unknown if ever smoked [facility] ([facility]) Smoking 01/31/2020 12:00:00 AM EDT Unknown if ever smoked comp leted Unknown if ever smoked [facility] ([facility]) Smoking 01/16/2020 12:00:00 AM EST Unknown if ever smoked comp leted Unknown if ever smoked [facility] ([facility]) Smoking 11/17/2019 12:00:00 AM EST Unknown if ever smoked comp leted Unknown if ever smoked [facility] ([facility]) Smoking 11/16/2019 12:00:00 AM EST Unknown if ever smoked comp leted Unknown if ever smoked [facility] ([facility]) Vital Signs ID Date Data Source UNK Name Value Range Interpretation Code Description Data Source(s) Diastolic blood pressure 0 mm[Hg] Normal (applies to non-numeric results) 0 mm[Hg] [facility] ([facility]) Systolic blood pressure 0 mm[Hg] Normal (applies t o non-numeric results) 0 mm[Hg] [facility] ([facility]) Body mass index (BMI) [Ratio] 0.00 kg/m2 No rmal (applies to non-numeric results) 0.00 kg/m2 [facility] ([facility]) Body weight Measured 0.00 lbs Normal (applies to n on-numeric results) 0.00 lbs [facility] ([facility]) Body height 0.00 in Normal (applies to non-numeric resu lts) 0.00 in [facility] ([facility]) Diastolic blood pressure 76 mm[Hg] 76 mm[Hg] eCW1 ([facility]) Systolic blood pressure 124 mm[Hg] 124 mm[Hg] e CW1 ([facility]) Body temperature 97 [degF] 97 [degF] eCW1 (Formerly [facility], 1928–1983) Respiratory rate 18 /min 18 /min eCW1 ([facility], 1928–1983) Heart rate 111 /min 111 /min eCW1 ([facility]) Body mass index (BMI) [Ratio] 64.12 kg/m2 64.12 kg/m2 W1 ([facility]) Body height 63 [in_i] 63 [in_i] eCW1 ([facility]) Body weight 362 [lb_av] 362 [lb_av] eCW1 ([facility]) Diastolic blood pressure 0 mm[Hg] Normal (applies to non-numeric results) 0 mm[Hg] [facility] ([facility]) Systolic blood pressure 0 mm[Hg] Normal (applies t o non-numeric results) 0 mm[Hg] [facility] ([facility]) Body mass index (BMI) [Ratio] 0.00 kg/m2 No rmal (applies to non-numeric results) 0.00 kg/m2 [facility]) Body weight Measured 0.00 lbs Normal (applies to n on-numeric results) 0.00 lbs [facility] ([facility]) Body height 0.00 in Normal (applies to non-numeric resu lts) 0.00 in [facility] ([facility]) Diastolic blood pressure 76 mm[Hg] 76 mm[Hg] eCW1 ([facility]) Systolic blood pressure 126 mm[Hg] 126 mm[Hg] e CW1 ([facility]) Body mass index (BMI) [Ratio] 65.54 kg/m2 65.54 kg/m2 eCW1 (Formerly [facility]) Body height 63 [in_i] 63 [in_i] eCW1 ([facility]) Body weight 370 [lb_av] 370 [lb_av] eCW1 ([facility]) Diastolic blood pressure 0 mm[Hg] Normal (applies to non-numeric results) 0 mm[Hg] [facility] ([facility]) Systolic blood pressure 0 mm[Hg] Normal (applies t o non-numeric results) 0 mm[Hg] [facility] ([facility]) Body mass index (BMI) [Ratio] 0.00 kg/m2 No rmal (applies to non-numeric results) 0.00 kg/m2 [facility] ([facility]) Body weight Measured 0.00 lbs Normal (applies to n on-numeric results) 0.00 lbs [facility] ([facility]) Body height 0.00 in Normal (applies to non-numeric resu lts) 0.00 in [facility] ([facility]) Diastolic blood pressure 68 mm[Hg] 68 mm[Hg] eCW1 (Formerly [facility]) Systolic blood pressure 118 mm[Hg] 118 mm[Hg] e CW1 (Formerly [facility]) Body temperature 97.5 [degF] 97.5 [degF] eCW1 ( [facility]ly [facility]) Respiratory rate 18 /min 18 /min eCW1 (Formerly [facility], 1928–1983) Heart rate 113 /min 113 /min eCW1 ([facility]) Body mass index (BMI) [Ratio] 65.50 kg/m2 65.50 kg/m2 eCW1 (Formerly [facility]) Body height 63 [in_i] 63 [in_i] eCW1 ([facility]) Body weight 369.8 [lb_av] 369.8 [lb_av] eCW1 ([facility]) Diastolic blood pressure 0 mm[Hg] Normal (applies to non-numeric results) 0 mm[Hg] [facility] ([facility]) Systolic blood pressure 0 mm[Hg] Normal (applies t o non-numeric results) 0 mm[Hg] [facility] ([facility]) Body mass index (BMI) [Ratio] 0.00 kg/m2 No rmal (applies to non-numeric results) 0.00 kg/m2 [facility] ([facility]) Body weight Measured 0.00 lbs Normal (applies to n on-numeric results) 0.00 lbs [facility] ([facility]) Body height 0.00 in Normal (applies to non-numeric resu lts) 0.00 in [facility] ([facility]) Diastolic blood pressure 0 mm[Hg] Normal (applies to non-numeric results) 0 mm[Hg] [facility] ([facility]) Systolic blood pressure 0 mm[Hg] Normal (applies t o non-numeric results) 0 mm[Hg] [facility] ([facility]) Body mass index (BMI) [Ratio] 0.00 kg/m2 No rmal (applies to non-numeric results) 0.00 kg/m2 [facility] ([facility]) Body weight Measured 0.00 lbs Normal (applies to n on-numeric results) 0.00 lbs [facility] ([facility]) Body height 0.00 in Normal (applies to non-numeric resu lts) 0.00 in [facility] ([facility]) Diastolic blood pressure 0 mm[Hg] Normal (applies to non-numeric results) 0 mm[Hg] [facility] ([facility]) Systolic blood pressure 0 mm[Hg] Normal (applies t o non-numeric results) 0 mm[Hg] [facility] ([facility]) Body mass index (BMI) [Ratio] 0.00 kg/m2 No rmal (applies to non-numeric results) 0.00 kg/m2 [facility] ([facility]) Body weight Measured 0.00 lbs Normal (applies to n on-numeric results) 0.00 lbs [facility] ([facility]) Body height 0.00 in Normal (applies to non-numeric resu lts) 0.00 in [facility] ([facility]) Patient Treatment Plan of Care Planned Activity Planned Date Details Description Data Source (s) Ortho Tri-Cyclen Lo 0.18/0.215/0.25 MG-25 MCG 08/28/2020 12:00:00 A M EDT eCW1 (Formerly [facility]) Ortho Tri-Cyclen Lo 0.18/0.215/0.25 MG-25 MCG 08/28/2020 12:00:00 A M EDT eCW1 (Formerly [facility]) Ortho Tri-Cyclen Lo 0.18/0.215/0.25 MG-25 MCG 08/28/2020 12:00:00 A M EDT eCW1 (Formerly [facility]) Ortho Tri-Cyclen Lo 0.18/0.215/0.25 MG-25 MCG 08/28/2020 12:00:00 A M EDT eCW1 (Formerly [facility]) Ortho Tri-Cyclen Lo 0.18/0.215/0.25 MG-25 MCG 08/28/2020 12:00:00 A M EDT eCW1 (Formerly [facility]) Hydrochlorothiazide 12.5 MG Oral Tablet 08/19/2020 12:00:00 AM EDT eCW1 (Formerly [facility]) Hydrochlorothiazide 12.5 MG Oral Tablet 08/19/2020 12:00:00 AM EDT eCW1 (Formerly [facility]) Hydrochlorothiazide 12.5 MG Oral Tablet 08/19/2020 12:00:00 AM EDT eCW1 (Formerly [facility]) Hydrochlorothiazide 12.5 MG Oral Tablet 08/19/2020 12:00:00 AM EDT eCW1 (Formerly [facility])
--- OUTSIDE RECORDS SUMMARY | 2020-12-30 02:35 | CCD ---
Author Author [facility] Organization [facility] Address Unknown Phone Unavailable Care Team Providers Care Plant Safety Leader Name Role Phone Ahmet Don PMH-TELEVISION CABLE INSTALLER Unavailable Unavailable Ahmet Don PMH-TELEVISION CABLE INSTALLER Unavailable Unavailable Ahmet Don PMH-TELEVISION CABLE INSTALLER Unavailable Unavailable Ahmet Don PMH-TELEVISION CABLE INSTALLER Unavailable Unavailable Ahmet Don PMH-TELEVISION CABLE INSTALLER Unavailable Unavailable Ahmet Don PMH-TELEVISION CABLE INSTALLER Unavailable Unavailable Elizabeth MORRISON Unavailable Unavailable Eugenio Hernandes Unavailable Cecilio Eugenio Unavailable Peñaloza, Masha Unavailable Unavailable Peñaloza, Masha [...] is protected by Article 27-F of the [facility] Public Health law. If you continue you may have access to information: Regarding HIV / AIDS; Provided by facilities licensed or operated by the [facility] Office of Mental Health; or Provided by the [facility] Office for People With Developmental Disabilities. If such information is present, then the following [facility] mandated warning applies: This information has [...] law may result in a fine or [place] health care facility sentence or both. A general authorization for the release of medical or other information is NOT sufficient authorization for further disc losure. Allergies and Adverse Reactions Type Description Substance Reaction Status Data Source(s ) Propensity to adverse reactions to substance Ambien (zolpide m) Zolpidem tartrate 10 MG Oral Tablet [Ambien] Active [facility]) Drug Class NO KNOWN ALLERGIES NO KNOWN ALLERGIES [facility] Family History Family Member Name Family Member Gender Family Member Status Date o f Status Description Data Source(s) Unknown Unknown Problem [facility] ([facility]) father Encounters Encounter Providers Location Date Indications Data Source(s ) Outpatient Attender: Saumya Don [facility]-TELEVISION CABLE INSTALLER [facility] 12/26/2020 02:00:00 AM EST - 12/26/2020 02:00:00 AM EST [facility] ([facility]) Attender: Saumya Don [facility]-JUDITH 12/26/2020 12: 00:00 AM EST [facility] ([facility]) Attender: Eugenio Hernandes 12/25/2020 12:00:00 AM EST [facility] ([facility]) [id number]"Psychotherapy Attender: Eugenio Hernandes [facility] 12/24/2020 02:00:00 AM EST - 12/24/2020 02:00:00 AM EST [facility] ([facility]) Attender: Eugenio Hernandes 12/03/2020 12:00:00 AM EST [facility] ([facility]) Extended Individual Psychotherapy - 45 min Attender: Anthony yarbrough [facility] 12/02/2020 03:00:00 AM EST - 12/02/2020 03:00:00 AM EST [facility] ([facility]) [place]patient [address] [address] 11/26/2020 12:00:00 AM EST eCW1 ([facility]) Extended Individual Psychotherapy - 45 min Attender: Anthony yarbrough [facility] 11/25/2020 03:00:00 AM EST - 11/25/2020 03:00:00 AM EST [facility] ([facility]) Attender: Eugenio Hernandes 11/25/2020 12:00:00 AM EST [facility] ([facility]) Attender: Eugenio Hernandes 11/19/2020 12:00:00 AM EST [facility] ([facility]) Extended Individual Psychotherapy - 45 min Attender: Anthony yarbrough Cecilio [facility] 11/18/2020 01:00:00 AM EST - 11/18/2020 01:00:00 AM EST [facility] ([facility]) Outpatient Attender: Saumya Don [facility]-TELEVISION CABLE INSTALLER [facility] 11/06/2020 01:30:00 AM EST - 11/06/2020 01:30:00 AM EST [facility] ([facility]) Attender: Saumya Don [facility]-TELEVISION CABLE INSTALLER 11/06/2020 12: 00:00 AM EST [facility] ([facility]) Attender: Eugenio Hernandes 11/05/2020 12:00:00 AM EST [facility] ([facility]) Extended Individual Psychotherapy - 45 min Attender: Anthony yarbrough Cecilio [facility] 11/04/2020 03:00:00 AM EST - 11/04/2020 03:00:00 AM EST [facility] ([facility]) [place] [address] [address] 11/01/2020 12:00:00 AM EST eCW1 ([facility]) Attender: Eugenio Hernandes 10/22/2020 12:00:00 AM EST [facility] ([facility]) Extended Individual Psychotherapy - 45 min Attender: Anthony yarbrough Cecilio [facility] 10/21/2020 02:00:00 AM EST - 10/21/2020 02:00:00 AM EST [facility] ([facility]) Outpatient Attender: Masha Peñaloza 10/08/2020 12:00:00 AM [facility] [place] [address] [address] 10/04/2020 12:00:00 AM EST eCW1 ([facility]) Outpatient Attender: CHARLIE MORRISON [id number] 09/27/2020 12:00 :00 AM EST Morbid (severe) obesity due to excess calories [facility] Morbid (severe) obesity due to excess ca lories Outpatient 09/26/2020 12:00:00 AM EST [facility] Attender: Eugenio Hernandes 09/25/2020 12:00:00 AM EST [facility] ([facility]) Extended Individual Psychotherapy - 45 min Attender: Anthony yarbrough [facility] 09/24/2020 01:00:00 AM EST - 09/24/2020 01:00:00 AM EST [facility] ([facility]) [place] [address] [address] 09/11/2020 12:00:00 AM EDT eCW1 ([facility]) Extended Individual Psychotherapy - 45 min Attender: Anthony Hernandes [facility] 09/10/2020 02:00:00 AM EDT - 09/10/2020 02:00:00 AM EDT [facility] ([facility]) Attender: Eugenio Hernandes 09/10/2020 12:00:00 AM EDT [facility] ([facility]) Outpatient [address] [facility] [place] [address] 08/28/2020 12:00:00 AM EDT eCW1 ([facility]) Outpatient [facility] 08/27/2020 02:30:00 AM EDT - 08/27/2020 02:30:00 AM EDT [facility] ([facility]) Attender: Saumya OWUSU 08/27/2020 12: 00:00 AM EDT [facility] ([facility]) Outpatient [address] [facility] [place] [address] 08/19/2020 12:00:00 AM EDT eCW1 ([facility]) Attender: Eugenio Hernandes 08/19/2020 12:00:00 AM EDT [facility] ([facility]) [id number]"Psychotherapy Attender: Eugenio Hernandes [facility] 08/16/2020 02:00:00 AM EDT - 08/16/2020 02:00:00 AM EDT [facility] ([facility]) Outpatient 08/09/2020 12:00:00 AM EDT [facility] Outpatient Attender: Saumya Don [facility]-TELEVISION CABLE INSTALLER [facility] 05/14/2020 03:30:00 AM EDT - 05/14/2020 03:30:00 AM EDT [facility] ([facility]) [facility]: [facility] 05/14/2020 12: 00:00 AM EDT [facility] ([facility]) Outpatient Attender: Graciela MARCUS 04/23/2020 07:31:08 PM ED [place] [address] [address] 04/09/2020 12:00:00 AM EDT eCW1 ([facility]) [address] [place] [address] 02/29/2020 12:00:00 AM EDT [facility] Attender: Trung Holguin 02/28/2020 12:00:0 0 AM EDT [facility] ([facility]) TEMPMHCTelemed 20" psychotherapy Attender: Trung eugene [facility] 02/27/2020 03:00:00 AM EDT - 02/27/2020 03:00:00 AM EDT [facility] ([facility]) TEMPMHCTelemed 30" Psychotherapy Attender: Trung eugene [facility] 02/13/2020 03:00:00 AM EDT - 02/13/2020 03:00:00 AM EDT [facility] ([facility]) Attender: Trung Holguin 02/13/2020 12:00:0 0 AM EDT [facility] ([facility]) [address] [place] [address] 02/06/2020 12:00:00 AM EDT eCW1 ([facility]) Attender: Trung Holguin 01/31/2020 12:00:0 0 AM EDT [facility] ([facility]) TEMPMHCTelemed 30" Psychotherapy Attender: Trung eugene [facility] 01/30/2020 04:15:00 AM EDT - 01/30/2020 04:15:00 AM EDT [facility] ([facility]) [facility] [address], [facility] [address] 01/29/2020 12:00:00 AM EDT eCW1 ([facility]) [facility] [address] [facility] [address] 01/19/2020 12:00:00 AM EST eCW1 ([facility]) Outpatient Attender: Saumya COOPER-JUDITH [facility] 01/16/2020 11:30:00 AM EST - 01/16/2020 11:30:00 AM EST [facility] ([facility]) Extended Individual Psychotherapy - 45 min Attender: Jonathon domenica Holguin [facility] 01/16/2020 04:00:00 AM EST - 01/16/2020 04:00:00 AM EST [facility] ([facility]) Attender: Trung Holguin 01/16/2020 12:00:0 0 AM EST [facility] ([facility]) Attender: Saumya COOPER-JUDITH 01/16/2020 12: 00:00 AM EST [facility] ([facility]) [facility] Women Center [address] [place] [address] 01/16/2020 12:00:00 AM EST eCW1 ([facility]) [facility] [address] [place] [address] 12/19/2019 12:00:00 AM EST eCW1 ([facility]) [facility] Womens Center [address] [place] [address] 12/19/2019 12:00:00 AM EST eCW1 ([facility]) [address] [address] 12/05/2019 12:00:00 AM EST eCW1 ([facility]) [address] [place] [address] 12/05/2019 12:00:00 AM EST eCW1 ([facility]) [address] [address] 11/30/2019 12:00:00 AM EST eCW1 ([facility]) Outpatient Attender: Saumya Don [facility]-TELEVISION CABLE INSTALLER [facility] 11/17/2019 02:00:00 AM EST - 11/17/2019 02:00:00 AM EST [facility] ([facility]) [facility]: [facility] 11/17/2019 12: 00:00 AM EST [facility] ([facility]) Attender: Trung Holguin 11/16/2019 12:00:0 0 AM EST [facility] ([facility]) Brief Individual Psychotherapy - 30 min Attender: Trung ortez [facility] 11/14/2019 03:00:00 AM EST - 11/14/2019 03:00:00 AM EST [facility] ([facility]) [address] [address] 11/01/2019 12:00:00 AM EST eCW1 ([facility]) [address] [address] 11/01/2019 12:00:00 AM EST eCW1 ([facility]) Functional Status Medications Medication Brand Name Start Date Product Form Dose Route Admi nistrative Instructions Pharmacy Instructions Status Indications Reaction Description Data Source(s) 50 mg 12/28/2020 12:00:00 AM EST tablet 30 TAKE ONE TABLET BY MOUTH EVERY DAY AT BEDTIME NEEDED TAKE ONE TABLET BY MOUTH EVERY DAY AT BE DTIME NEEDED SOLD: 12/28/2020 [facility] Nystatin 100 UNT/MG Topical Powder [...] ONE TABLET BY MOUTH EVERY DAY AT [facility] NEEDED SOLD: 12/05/2020 [facility] 24 HR Bupropion Hydrochloride 300 MG Extended Release Oral T ablet bupropion HCl 11/06/2020 12:00:00 AM EST 300 mg by mouth completed [id number] bupropion HCl by mouth [id number] 11/06/2020 every morning 300 mg tablet extended release 24 hr 45712 264717 [id number] Saumya Don [id number] P sychiatric/Mental Health [facility] ([facility]) Trazodone Hydrochloride 50 MG Oral Tablet trazodone 2019 12:00:00 AM EST 50 mg by mouth completed 973846 trazodone by mouth C382 88 11/06/2020 at bedtime 50 mg tablet as needed 11816 [id number] Massimo Don [id number] Psychiatric/Mental Health [facility] ([facility]) 10 mg 11/06/2020 12:00:00 AM EST tablet 30 TAKE ONE TABLET BY MOUTH EVERY DAY TAKE ONE TABLET BY MOUTH EVERY DAY SOLD: 12/09/2020 [facility] Trazodone Hydrochloride 50 MG Oral Tablet trazodone 2019 12:00:00 AM EST 50 mg by mouth completed 936055 trazodone by mouth C382 88 11/06/2020 at bedtime 50 mg tablet as needed 33806 920234 [id number] Massimo monsivaispavan Arian [id number] Psychiatric/Mental Health [facility] ([facility]) 24 HR Bupropion Hydrochloride 300 MG Extended Release Oral T ablet BUPROPION HCL 11/06/2020 12:00:00 AM EST tablet extended release 24 hr 30 TAKE ONE TABLET BY MOUTH EVERY MORNING TAKE ONE TABLET BY MOUTH EVERY MORNING SOLD: 12/14/2020 [facility] aripiprazole 10 MG Oral Tablet aripiprazole 11/06/2020 12:00:00 AM ES T 10 mg by mouth completed 748395 aripiprazole by mouth [id number] 1 01/07/2020 once a day 10 mg tablet 27865 331251 [id number] Saumya brooks [id number] Psychiatric/Mental Health [facility] ([facility]) 50 mg 11/06/2020 12:00:00 AM EST tablet 30 TAKE ONE TABLET BY MOUTH EVERY DAY AT BEDTIME NEEDED TAKE ONE TABLET BY MOUTH EVERY DAY AT [facility] NEEDED SOLD: 11/07/2020 [facility] aripiprazole 10 MG Oral Tablet aripiprazole 11/06/2020 12:00:00 AM ES T 10 mg by mouth completed 862144 aripiprazole by mouth [id number] 1 01/07/2020 once a day 10 mg tablet 55490 [id number] [id number] Saumya brooks [id number] Psychiatric/Mental Health [facility] ([facility]) 10 mg 11/06/2020 12:00:00 AM EST tablet 30 TAKE ONE TABLET BY MOUTH EVERY DAY TAKE ONE TABLET BY MOUTH EVERY DAY SOLD: 11/07/2020 [facility] Prazosin 5 MG Oral Capsule prazosin 11/06/2020 12:00:00 AM EST 5 mg by mouth completed 947163 prazosin by mouth [id number] 11/06/2020 at bedtime 5 mg capsule 99976 563950 [id number] Maricruz Vizcarra [id number] Nurse Practitioner [facility] ([facility]) 5 mg 11/06/2020 12:00:00 AM EST capsule 50 TAKE TWO CAPSULES BY MOUTH EVERY DAY AT BEDTIME TAKE TWO CAPSULES BY MOUTH EVERY DAY AT BEDTIME SOLD: 2019 [facility] Prazosin 5 MG Oral Capsule prazosin 11/06/2020 12:00:00 AM EST 5 mg by mouth completed 192758 prazosin by mouth F41532 11/06/2020 at bedtime 5 mg capsule 15126 873556 [id number] Maricruz Vizcarra [id number] Nurse Practitioner [facility] ([facility]) 24 HR Bupropion Hydrochloride 150 MG Extended [...] BY MOUTH EVERY MORNING SOLD: 11/23/2020 [facility] Hydrochlorothiazide 12.5 MG Oral Tablet HYDROCHLOROTHIAZIDE 09/14/2020 12:00:00 AM EDT tablet 30 TAKE ONE TABLET BY MOUTH MADELINE RY MORNING TAKE ONE TABLET BY MOUTH EVERY MORNING SOLD: 10/14/2020 [facility] Hydrochlorothiazide 12.5 MG Oral Tablet HYDROCHLOROTHIAZIDE 09/14/2020 12:00:00 AM EDT tablet 30 TAKE ONE TABLET BY MOUTH MADELINE RY MORNING TAKE ONE TABLET BY MOUTH EVERY MORNING SOLD: 09/14/2020 [facility] Hydrochlorothiazide 12.5 MG Oral Tablet HYDROCHLOROTHIAZIDE 09/14/2020 12:00:00 AM EDT tablet 30 TAKE ONE TABLET BY MOUTH MADELINE RY MORNING TAKE ONE TABLET BY MOUTH EVERY MORNING SOLD: 12/28/2020 [facility] 120 mg 08/30/2020 12:00:00 AM EDT tablet 30 TAKE ONE TABLET BY MOUTH EVERY MORNING TAKE ONE TABLET BY MOUTH EVERY MORNING SOLD: 08/31/2020 [facility] 120 mg 08/30/2020 12:00:00 AM EDT tablet 30 TAKE ONE TABLET BY MOUTH EVERY MORNING TAKE ONE TABLET BY MOUTH EVERY MORNING SOLD: 09/27/2020 [facility] 0.18/0.215/0.25 mg-25 mcg 08/29/2020 12:00:00 AM EDT tablet 28 TAKE ONE TABLET BY MOUTH EVERY DAY TAKE ONE TABLET BY MOUTH EVERY DAY SOLD: 08/30/2020 [facility] Tri-Lo-Yamilex 28 Day Pack 0.18/0.215/0.25 mg-25 mcg NORG ESTIMATE-ETHINYL ESTRADIOL 08/29/2020 12:00:00 AM EDT tablet 28 TAKE ONE TABLET BY MOUTH EVERY DAY TAKE ONE TABLET BY MOUTH EVERY DAY SOLD: 09/22/2020 [facility] Ortho Tri-Cyclen Lo 0.18/0.215/0.25 MG-25 MCG UNK 08/28/20 12:00:00 AM EDT 1.0 {tablet} suspended Ortho Tri-Cyclen Lo 0.18/0.215/0.25 MG-25 MCG eCW1 ([facility]) Ortho Tri-Cyclen Lo 0.18/0.215/0.25 MG-25 MCG UNK 08/28/20 12:00:00 AM EDT 1.0 {tablet} active Ortho Tri-Cyclen Lo 0.18/0.215/0.25 MG-25 MCG eCW1 ([facility]) Ortho Tri-Cyclen Lo 0.18/0.215/0.25 MG-25 MCG UNK 08/28/20 12:00:00 AM EDT 1.0 {tablet} active Ortho Tri-Cyclen Lo 0.18/0.215/0.25 MG-25 MCG eCW1 ([facility]) Ortho Tri-Cyclen Lo 0.18/0.215/0.25 MG-25 MCG UNK 08/28/20 12:00:00 AM EDT 1.0 {tablet} active Ortho Tri-Cyclen Lo 0.18/0.215/0.25 MG-25 MCG eCW1 ([facility]) Ortho Tri-Cyclen Lo 0.18/0.215/0.25 MG-25 MCG UNK 08/28/20 12:00:00 AM EDT 1.0 {tablet} active Ortho Tri-Cyclen Lo 0.18/0.215/0.25 MG-25 MCG eCW1 ([facility]) Ortho Tri-Cyclen Lo 0.18/0.215/0.25 MG-25 MCG UNK 08/28/20 12:00:00 AM EDT 1.0 {tablet} active Ortho Tri-Cyclen Lo 0.18/0.215/0.25 MG-25 MCG eCW1 ([facility]) 50 mcg 08/22/2020 12:00:00 AM EDT tablet [...] TABLET BY MOUTH EVERY MORNING SOLD: 08/21/2020 [facility] Hydrochlorothiazide 12.5 MG Oral Tablet Hydrochlorothiazide 12.5 MG 08/19/2020 12:00:00 AM EDT 1.0 {tablet_in_the_morning} acti ve Hydrochlorothiazide 12.5 MG eCW1 ([facility]) Hydrochlorothiazide 12.5 MG Oral Tablet Hydrochlorothiazide 12.5 MG 08/19/2020 12:00:00 AM EDT 1.0 {tablet_in_the_morning} susp ended Hydrochlorothiazide 12.5 MG eCW1 ([facility]) Hydrochlorothiazide 12.5 MG Oral Tablet Hydrochlorothiazide 12.5 MG 08/19/2020 12:00:00 AM EDT 1.0 {tablet_in_the_morning} acti ve Hydrochlorothiazide 12.5 MG eCW1 ([facility]) Hydrochlorothiazide 12.5 MG Oral Tablet Hydrochlorothiazide 12.5 MG 08/19/2020 12:00:00 AM EDT 1.0 {tablet_in_the_morning} acti ve Hydrochlorothiazide 12.5 MG eCW1 ([facility]) Hydrochlorothiazide 12.5 MG Oral Tablet Hydrochlorothiazide 12.5 MG 08/19/2020 12:00:00 AM EDT 1.0 {tablet_in_the_morning} acti ve Hydrochlorothiazide 12.5 MG eCW1 ([facility]) Hydrochlorothiazide 12.5 MG Oral Tablet Hydrochlorothiazide 12.5 MG 08/19/2020 12:00:00 AM EDT 1.0 {tablet_in_the_morning} acti ve Hydrochlorothiazide 12.5 MG eCW1 ([facility]) Crandon Carbonate 300 MG Oral Capsule lithium carbonate 12:00:00 AM EDT 300 mg by mouth completed 760808 lithium car bonate by mouth [id number] 08/15/2020 at bedtime 300 mg capsule 46981 [id number] Devin Hoskins [id number] Psychiatry [facility] ([facility]) 300 mg 08/15/2020 12:00:00 AM EDT capsule [...] AM EDT 150 mg by mouth completed 831362 bupropion HCl by mouth V29433 08/15/2020 once a day 150 mg tablet ex tended release 24 hr 69488 854233 [id number] Saumya Don [id number] P sychiatric/Mental Health [facility] ([facility]) 300 mg 08/15/2020 12:00:00 AM EDT capsule 30 TAKE ONE CAPSULE BY MOUTH EVERY DAY AT BEDTIME TAKE ONE CAPSULE BY MOUTH EVERY DAY AT BEDTIME SOLD: [facility] 24 HR Bupropion Hydrochloride 150 MG Extended Release Oral T ablet bupropion HCl 08/15/2020 12:00:00 AM EDT 150 mg by mouth completed 866553 bupropion HCl by mouth F50395 08/15/2020 once a day 150 mg tablet ex tended release 24 hr 98812 553681 [id number] Saumya Don [id number] P sychiatric/Mental Health [facility] ([facility]) 24 HR Bupropion Hydrochloride 300 MG Extended Release Oral T ablet bupropion HCl 08/15/2020 12:00:00 AM EDT 300 mg by mouth completed 432322 bupropion HCl by mouth J50452 08/15/2020 10/14/2020 once a day 30 300 mg tablet extended release 24 hr 30295 [id number] Devin [facility] [id number] Psychi atry [facility] ([facility]) 24 HR Bupropion Hydrochloride 300 MG Extended Release Oral T ablet BUPROPION HCL 08/15/2020 12:00:00 AM EDT tablet extended release 24 hr 30 TAKE ONE TABLET BY MOUTH EVERY DAY TAKE ONE TABLET BY MOUTH EVERY DAY SOLD: 09/16/2020 [facility] Crandon Carbonate 300 MG Oral Capsule lithium carbonate 12:00:00 AM EDT 300 mg by mouth completed 627476 lithium car bonate by mouth [id number] 08/15/2020 at bedtime 300 mg capsule 40683 915458 [id number] Devin [facility] [id number] Psychiatry [facility] ([facility]) 24 HR Bupropion Hydrochloride 300 MG Extended [...] AM EDT 120 mg by mouth completed [id number] Latuda by mout h [id number] 04/25/2020 10/14/2020 once a day 30 120 mg tablet 10254 [id number] Devin [facility] [id number] Psychiatry [facility] ([facility]) Lurasidone Hydrochloride 120 MG Oral Tablet [Latuda] Latuda 04/25/2020 12:00:00 AM EDT 120 mg by mouth completed [id number] Latuda by mout h [id number] 04/25/2020 06/24/2020 once a day 30 120 mg tablet 39975 072714 [id number] Saumya Don [id number] Psychiatric/Mental Health [facility] ([facility]) 300 mg 04/24/2020 12:00:00 AM EDT tablet [...] 02/23/2020 12:00:00 AM EDT 20 mg completed [id number] Latuda 02/23/2020 30 20 mg tablet 11558 123069 [id number] Saumya Don [id number] P sychiatric/Mental Health [facility] ([facility]) 20 mg 02/23/2020 12:00:00 AM EDT [...] 02/23/2020 12:00:00 AM EDT 20 mg completed [id number] Latuda 02/23/2020 30 20 mg tablet 64474 840933 [id number] Saumya Don [id number] P sychiatric/Mental Health [facility] ([facility]) 300 mg 02/05/2020 12:00:00 AM EDT [...] 01/26/2020 12:00:00 AM EDT 150 mg completed 723739 bupropion HCl 01/26/2020 30 150 mg tablet extended release 24 hr 90398 284544 [id number] Saumya Don [id number] Psychiatric/Mental Health [facility] ([facility]) 5 mg 01/26/2020 12:00:00 AM EDT capsule [...] MOUTH EVERY DAY SOLD: 02/26/2020 [facility] Crandon Carbonate 300 MG Oral Capsule lithium carbonate 12:00:00 AM EDT 300 mg completed 582120 lithium carbonate 30 300 mg capsule 44274 368850 [id number] Saumya Don [id number] Psychiatric/Mental Health [facility] ([facility]) Prazosin 5 MG Oral Capsule prazosin 01/26/2020 12:00:00 AM EDT 5 mg completed 121309 prazosin 01/26/2020 30 5 mg capsule 91415 636074 [id number] Saumyaester Don [id number] Psychiatric/Mental Health [facility] ([facility]) 24 HR Bupropion Hydrochloride 300 MG Extended Release Oral T ablet bupropion HCl 01/26/2020 12:00:00 AM EDT 300 mg completed 757690 bupropion HCl 01/26/2020 07/24/2020 30 300 mg tablet extended release 24 hr 28476 693100 [id number] Saumyaester Don [id number] Psychiatric/Mental Health [facility] ([facility]) 5 mg 01/26/2020 12:00:00 AM EDT capsule 60 TAKE TWO CAPSULES BY MOUTH AT BEDTIME TAKE TWO CAPSULES BY MOUTH AT BEDTIME SOLD: 04/06/2020 [facility] 24 HR Bupropion Hydrochloride 150 MG Extended Release Oral T ablet bupropion HCl 01/26/2020 12:00:00 AM EDT 150 mg completed 406414 bupropion HCl 01/26/2020 07/24/2020 30 150 mg tablet extended release 24 hr 99500 025884 [id number] Saumya Arian [id number] Psychiatric/Mental Health [facility] ([facility]) 300 mg 01/26/2020 12:00:00 AM EDT tablet extended release 24 hr 30 TAKE ONE TABLET BY MOUTH EVERY MORNING TAKE ONE TABLET BY MOUTH EVERY MORNING SOLD: 03/22/2020 [facility] Prazosin 5 MG Oral Capsule prazosin 01/26/2020 12:00:00 AM EDT 5 mg completed [id number] prazosin 01/26/2020 30 5 mg capsule 48939 241696 [id number] Saumya Arian [id number] Psychiatric/Mental Health [facility] ([facility]) 24 HR Bupropion Hydrochloride 150 MG Extended Release Oral T ablet bupropion HCl 01/26/2020 12:00:00 AM EDT 150 mg completed [id number] bupropion HCl 01/26/2020 30 150 mg tablet extended release 24 hr 52669 [id number] Saumyaester Don [id number] Psychiatric/Mental Health [facility] ([facility]) 24 HR Bupropion Hydrochloride 300 MG Extended Release Oral T ablet bupropion HCl 01/26/2020 12:00:00 AM EDT 300 mg completed [id number] bupropion HCl 01/26/2020 30 300 mg tablet extended release 24 hr 07600 [id number] Saumyaester Don [id number] Psychiatric/Mental Health [facility] ([facility]) Crandon Carbonate 300 MG Oral Capsule lithium carbonate 12:00:00 AM EDT 300 mg completed [id number] lithium carbonate 01/26/2020 07/24/2020 30 300 mg capsule 65778 [id number] Nya Don [id number] Psychiatric/Mental Health [facility] ([facility]) 24 HR Bupropion Hydrochloride 150 MG Extended Release Oral T ablet BUPROPION HCL 01/26/2020 12:00:00 AM EDT tablet extended release 24 hr 30 TAKE ONE TABLET BY MOUTH EVERY DAY TAKE ONE TABLET BY MOUTH EVERY DAY SOLD: 01/28/2020 [facility] Prazosin 5 MG Oral Capsule prazosin 01/26/2020 12:00:00 AM EDT 5 mg completed [id number] prazosin 01/26/2020 30 5 mg capsule 68374 [id number] Saumya Don [id number] Psychiatric/Mental Health [facility] ([facility]) 5 mg 01/26/2020 12:00:00 AM EDT capsule 60 TAKE TWO CAPSULES BY MOUTH AT BEDTIME TAKE TWO CAPSULES BY MOUTH AT BEDTIME SOLD: 02/26/2020 [facility] Prazosin 5 MG Oral Capsule prazosin 01/26/2020 12:00:00 AM EDT 5 mg completed [id number] prazosin 01/26/2020 07/24/2020 30 5 mg capsule 58827 [id number] Saumya Don [id number] Psychiatric/Mental Health [facility] ([facility]) 24 HR Bupropion Hydrochloride 300 MG Extended Release Oral T ablet bupropion HCl 01/26/2020 12:00:00 AM EDT 300 mg completed [id number] bupropion HCl 01/26/2020 30 300 mg tablet extended release 24 hr 23385 [id number] Saumya Don [id number] Psychiatric/Mental Health [facility] ([facility]) 300 mg 01/26/2020 12:00:00 AM EDT tablet extended release 24 hr 30 TAKE ONE TABLET BY MOUTH EVERY MORNING TAKE ONE TABLET BY MOUTH EVERY MORNING SOLD: 02/26/2020 [facility] Cr[place] Carbonate 300 MG Oral Capsule lithium carbonate 12:00:00 AM EDT 300 mg completed [id number] lithium carbonate 30 300 mg capsule 22797 [id number] Saumya Hicksrow [id number] Psychiatric/Mental Health [facility] ([facility]) 300 mg 01/26/2020 12:00:00 AM EDT [...] AM EST 20 mg by mouth completed [id number] Latuda by mouth [id number] 01/19/2020 02/18/2020 once a day 30 20 mg tablet 94367 [id number] Saumya Don [id number] Psychiatric/Mental Health [facility] ([facility]) Lurasidone Hydrochloride 20 MG Oral Tablet [Latuda] Latuda 01/19/2020 12:00:00 AM EST 20 mg by mouth completed [id number] Latuda by mouth [id number] 01/19/2020 02/18/2020 once a day 30 20 mg tablet 77416 590373 [id number] Saumya Don [id number] Psychiatric/Mental Health [facility] ([facility]) 120 mg 12/30/2019 12:00:00 AM EST tablet 30 TAKE ONE TABLET BY MOUTH EVERY MORNING DIRECTED WITH 20 MG TAKE ONE TABLET BY MOUTH EVERY MORNING A S DIRECTED WITH 20 MG SOLD: 01/01/2020 [facility] Lurasidone Hydrochloride 120 MG Oral Tablet [Latuda] Latuda 12/29/2019 12:00:00 AM EST 120 mg by mouth completed [id number] Latuda by mout h [id number] 12/29/2019 02/18/2020 every morning 30 120 mg tablet as directed 7415 9 [id number] Saumya Don [id number] Psychiatric/Mental Health [facility] ([facility]) Lurasidone Hydrochloride 120 MG Oral Tablet [Latuda] Latuda 12/29/2019 12:00:00 AM EST 120 mg by mouth completed [id number] Latuda by thania metzger [id number] 12/29/2019 02/18/2020 every morning 30 120 mg tablet as directed 7415 9 [id number] Saumya Don [id number] Psychiatric/Mental Health [facility] ([facility]) 0.25-35 mg-mcg 12/21/2019 12:00:00 AM [...] by mouth completed [id number] prazosin by mouth [id number] 10/27/201910/2020 at bedtime 30 5 mg capsule 38894 712672 [id number] Saumya Don [id number] Psychiatric/Mental Health [facility] ([facility]) Prazosin 5 MG Oral Capsule prazosin 10/27/2019 12:00:00 AM EST 5 mg by mouth completed [id number] prazosin by mouth [id number] 10/27/201910/2020 at bedtime 30 5 mg capsule 86427 385941 [id number] Saumya Don [id number] Psychiatric/Mental Health [facility] ([facility]) Prazosin 5 MG Oral Capsule prazosin 10/27/2019 12:00:00 AM EST 5 mg by mouth completed [id number] prazosin by mouth [id number] 10/27/201910/2020 at bedtime 30 5 mg capsule 41027 609446 [id number] Saumya Don [id number] Psychiatric/Mental Health [facility] ([facility]) Lurasidone Hydrochloride 120 MG Oral Tablet [Latuda] Latuda 10/27/2019 12:00:00 AM EST 120 mg by mouth completed [id number] Latuda by mout h [id number] 10/27/2019 12/26/2019 every evening 30 120 mg tablet with meals 07248 [id number] Saumya Don [id number] Psychiatric/Mental Health [facility] ([facility]) Lurasidone Hydrochloride 120 MG Oral Tablet [Latuda] Latuda 10/27/2019 12:00:00 AM EST 120 mg by mouth completed [id number] Latuda by mout h [id number] 10/27/2019 12/26/2019 every evening 30 120 mg tablet with meals 54971 433125 [id number] Saumya Don [id number] Psychiatric/Mental Health [facility] ([facility]) 24 HR Bupropion Hydrochloride 150 MG Extended Release Oral T ablet bupropion HCl 10/27/2019 12:00:00 AM EST 150 mg by mouth completed [id number] bupropion HCl by mouth [id number] 10/27/2019 01/25/2020 once a day 30 150 mg tablet extended release 24 hr 10903 770674 [id number] Saumya Don [id number] Psychiatric/Mental Health [facility] ([facility]) 24 HR Bupropion Hydrochloride 150 MG Extended Release Oral T ablet bupropion HCl 10/27/2019 12:00:00 AM EST 150 mg by mouth completed [id number] bupropion HCl by mouth [id number] 10/27/2019 01/25/2020 once a day 30 150 mg tablet extended release 24 hr 75221 [id number] Saumya Don [id number] Psychiatric/Mental Health [facility] ([facility]) 0.25-35 mg-mcg 10/04/2019 12:00:00 AM EST tablet 28 TAKE ONE TABLET BY MOUTH EVERY DAY TAKE ONE TABLET BY MOUTH EVERY DAY SOLD: 11/05/2019 [facility] Nystatin 100 UNT/MG Topical Powder 100,000 unit/gram NYSTATI N 05/13/2019 12:00:00 AM EDT powder 15 APPLY TO AFFECTED AREA TW O TIMES A DAY APPLY TO AFFECTED AREA TWO TIMES A DAY SOLD: 12/21/2019 [facility] Insurance Providers Payer name Policy type / Coverage type Policy ID Covered alliance party ID Covered alliance party's relationship to fuentes Policy Fuentes Plan Information EMEDNY [id number] SP [id number] [facility] [id number] SP [id number] [facility] [id number] Self [id number] EMEDNY [id number] SP [id number] UN COMMUNITY PLAN [facility] [id number] SP [id number] Self Pay P none S none MEDICAID [id number] SP [id number] [place] 020/520 [id number] SP [id number] [facility] [id number] SP [id number] MEDICAID [facility] [id number] SP [id number] BLUE CROSS [id number] SP [id number] SELF PAY [place] 020/520 [id number] SP [id number] [facility] [id number] SP [id number] [place]BS [place] PPO 302/307 [id number] SP [id number] SELF PAY MEDICAID [facility] [id number] SP [id number] BLUE CROSS [id number] SP [id number] [facility]-Medicaid [id number] ANS-Medicaid [id number] ANS-Medicaid [id number] ANSI-Medicaid [id number] ANSI-Medicaid [id number] ANSI-Medicaid [id number] [facility] COMM[facility]ITY PLAN [id number] SP [id number] BLUE CROSS [id number] SP [id number] ANSI-Medicaid [id number] ANSI-Medicaid [id number] Self Pay P UNAVAILABLE S [facility]) O [id number] S [id number] ANSI-Medicaid [id number] ANSI-Medicaid [id number] ANSI-Medicaid [id number] ANSI-Medicaid [id number] ANSI-Medicaid [id number] ANSI-Medicaid [id number] ANSI-Medicaid [id number] ANSI-Medicaid [id number] ANSI-Medicaid [id number] ANSI-Medicaid [id number] ANSI-Medicaid [id number] ANSI-Medicaid [id number] ANSI-Medicaid [id number] ANSI-Medicaid [id number] ANSI-Medicaid [id number] ANSI-Medicaid [id number] [facility] [id number] SP [id number] [facility] O [id number] S [id number] [facility] Health Maintenance Organization (HMO) [id number] Self [id number] UNAVAILABLE UNAVAILA BLE SELF PAY UNAVAILABLE UNAVAILA BLE MEDICAID [id number] [facility] OFFICE OF MENTAL HEALTH [id number] S [id number] [facility] OFFICE OF MENTAL HEALTH [id number] S [id number] [facility] O [id number] S [id number] D [facility] S [id number] S [id number] BLUE CROSS [place] PLAN [id number] SP [id number] O BLUE [id number] SP [id number] O BLUE [id number] SP [id number] Problems, Conditions, and Diagnoses Code Display Name Description Problem Type Effective Dates Data Source(s) F31.9 Bipolar disorder, unspecified Unspecified Bipola r and Related Disorder Condition 12/26/2020 12:00:00 AM EST [facility] ([facility]) F43.12 Post-traumatic stress disorder, chronic Post-traumatic stress disorder, chronic Condition 12/26/2020 12:00:00 AM EST [facility] ([facility]) E78.2 Mixed hyperlipidemia Mixed hyperlipidemia Problem 08/19/2020 12:00:00 AM EDT eCW1 ([facility]) Z71.3 Dietary counseling and surveillance Dietary coun seling and surveillance Diagnosis 09/27/2020 08:41:31 AM [facility] Z68.44 Body mass index (BMI) 60.0-69.9, adult B tono mass index (BMI) 60.0-69.9, adult Diagnosis 09/27/2020 08:41:31 AM [facility] E66.01 Morbid (severe) obesity due to excess ca lories Morbid (severe) obesity due to excess calories Diagnosis 09/27/2020 08:41:31 AM [facility] Surgeries/Procedures Procedure Description Date Indications Data Source(s) [facility] Telemed E/M Lvl 3--Est pt 12/26/2020 12:00:00 AM EST - 12/26/2020 12:00:00 AM EST [facility] ([facility]) Telemed A/O 30" 12/26/2020 12:00:00 AM EST [facility] ([facility]) [facility] Telemed E/M Lvl 3--Est pt 12/26/2020 12:00:[address] [facility] ([facility]) [id number]"Psychotherapy 12:00:00 AM EST - 12/25/2020 12:00:00 AM EST [facility] ([facility]) [id number]"Psychotherapy 12/24/2020 12:00:00 AM EST [facility] ([facility]) Extended Individual Psychotherapy - 45 min 12/03/2020 12:00:00 AM EST - 12/03/2020 12:00:00 AM EST [facility] ([facility]) Extended Individual Psychotherapy - 45 min 12:00:00 AM EST [facility] ([facility]) Extended Individual Psychotherapy - 45 min 11/25/2020 12:00:00 AM EST - 11/25/2020 12:00:00 AM EST [facility] ([facility]) Extended Individual Psychotherapy - 45 min 12:00:00 AM EST [facility] ([facility]) Extended Individual Psychotherapy - 45 min 11/19/2020 12:00:00 AM EST - 11/19/2020 12:00:00 AM EST [facility] ([facility]) Extended Individual Psychotherapy - 45 min 12:00:00 AM EST [facility] ([facility]) OFFICE OUTPATIENT VISIT 15 MINUTES 11/06 12:00:00 AM EST - 11/06/2020 12:00:00 AM EST [facility] ([facility]) Psychotherapy ADD ON - 30 Minutes 11/06/2020 12:00:00 AM EST [facility] ([facility]) OFFICE OUTPATIENT VISIT 15 MINUTES 11/06/2020 12:00:00 AM EST [facility] ([facility]) Extended Individual Psychotherapy - 45 min 11/05/2020 12:00:00 AM EST - 11/05/2020 12:00:00 AM EST [facility] ([facility]) Extended Individual Psychotherapy - 45 min 0 12:00:00 AM EST [facility] ([facility]) Extended Individual Psychotherapy - 45 min 10/22/2020 12:00:00 AM EST - 10/22/2020 12:00:00 AM EST [facility] ([facility]) Extended Individual Psychotherapy - 45 min 0 12:00:00 AM EST [facility] ([facility]) Extended Individual Psychotherapy - 45 min 09/25/2020 12:00:00 AM EST - 09/25/2020 12:00:00 AM EST [facility] ([facility]) Extended Individual Psychotherapy - 45 min 0 12:00:00 AM EST [facility] ([facility]) Extended Individual Psychotherapy - 45 min 09/10/2020 12:00:00 AM EDT - 09/10/2020 12:00:00 AM EDT [facility] ([facility]) Extended Individual Psychotherapy - 45 min 0 12:00:00 AM EDT [facility] ([facility]) MHC Telemed E/M Lvl 3--Est pt 08/27/2020 12:00:00 AM EDT - 08/27/2020 12:00:00 AM EDT [facility] ([facility]) Telemed A/O 30" 08/27/2020 12:00:00 AM EDT [facility] ([facility]) MHC Telemed E/M Lvl 3--Est pt 08/27/2020 12:00:00 AM E DT [facility] ([facility]) ECG ROUTINE ECG W/LEAST 12 LDS W/I&R 08/19/2020 12:00: 00 AM EDT eCW1 ([facility]) [id number]"Psychotherapy 0 12:00:00 AM EDT - 08/19/2020 12:00:00 AM EDT [facility] ([facility]) [id number]"Psychotherapy 08/16/2020 12:00:00 AM EDT [facility] ([facility]) MHC Telemed E/M Lvl 3--Est pt 05/14/2020 12:00:00 AM EDT - 05/14/2020 12:00:00 AM EDT [facility] ([facility]) Telemed A/O 30" 05/14/2020 12:00:00 AM EDT [facility] ([facility]) MHC Telemed E/M Lvl 3--Est pt 05/14/2020 12:00:00 AM E DT [facility] ([facility]) TEMPMHCTelemed 20" psychotherapy 020 12:00:00 AM EDT - 02/28/2020 12:00:00 AM EDT [facility] ([facility]) TEMPMHCTelemed 20" psychotherapy 02/27/2020 12:00:00 A M EDT [facility] ([facility]) TEMPMHCTelemed 30" Psychotherapy 12:00:00 AM EDT - 02/13/2020 12:00:00 AM EDT [facility] ([facility]) TEMPMHCTelemed 30" Psychotherapy 02/13/2020 12:00:00 A M EDT [facility] ([facility]) TEMPMHCTelemed 30" Psychotherapy 020 12:00:00 AM EDT - 01/31/2020 12:00:00 AM EDT [facility] ([facility]) TEMPMHCTelemed 30" Psychotherapy 01/30/2020 12:00:00 A M EDT [facility] ([facility]) Extended Individual Psychotherapy - 45 min 01/16/2020 12:00:00 AM EST - 01/16/2020 12:00:00 AM EST [facility] ([facility]) Extended Individual Psychotherapy - 45 min 0 12:00:00 AM EST [facility] ([facility]) OFFICE OUTPATIENT VISIT 15 MINUTES 01/15 12:00:00 AM EST - 01/16/2020 12:00:00 AM EST [facility] ([facility]) OFFICE OUTPATIENT VISIT 15 MINUTES 01/16/2020 12:00:00 AM EST [facility] ([facility]) OFFICE OUTPATIENT VISIT 15 MINUTES 11/17 12:00:00 AM EST - 11/17/2019 12:00:00 AM EST [facility] ([facility]) OFFICE OUTPATIENT VISIT 15 MINUTES 11/17/2019 12:00:00 AM EST [facility] ([facility]) Brief Individual Psychotherapy - 30 min 11/16/2019 12:00:00 AM EST - 11/16/2019 12:00:00 AM EST [facility] ([facility]) Brief Individual Psychotherapy - 30 min 11/14/2019 12: 00:00 AM EST [facility] ([facility]) Results ID Date Data Source [id number] 09/27/2020 03:56:39 PM EST [facility] Name Value Range Interpretation Code Description Data Lisa rce(s) Supporting Document(s) Progress Note [facility] QGONRf3jXuCCYnFl44/IDWsaSVCnu9JuPXsnYWy8SJftIHKyC4PnWZH1oO6zODT9DHeEBhRyLrObHYPp lbm [file] ICAgICAgICAgICAgICAgICAgICAgICAgICAgICAgICAgICAgICAgICAgICAgICAgICAgICAgICAgICAg ICAgICAgICAgICAgICAgICAgICAgICAgICAgICAgIC AgICAgICAgDQogICAgICAgICAgICAgICAgICAgICAgICAgICAgICAgICAgICAgICAgICAgICAgICAgIC AgICAgICAgICAgICAgICAgICAgICAgICAgICAgICAgICAgICAgICAgICAgICAgICAgDQogICAgICAgIC AgICAgICAgICAgICAgICAgICAgICAgICAgICAgICAg ICAgICAgICAgICAgICAgICAgICAgICAgICAgICAgICAgICAgICAgICAgICAgICAgICAgICAgICAgICAg DQogICAgICAgICAgICAgICAgICAgICAgICAgICAgICAgICAgICAgICAgICAgICAgICAgICAgICAgICAg ICAgICAgICAgICAgICAgICAgICAgICAgICAgICAgIC AgICAgICAgICAgDQogICAgICAgICAgICAgICAgICAgICAgICAgICAgICAgICAgICAgICAgICAgICAgIC AgICAgICAgICAgICAgICAgICAgICAgICAgICAgICAgICAgICAgICAgICAgICAgICAgICAgDQogICAgIC AgICAgICAgICAgICAgICAgICAgICAgICAgICAgICAg ICAgICAgICAgICAgICAgICAgICAgICAgICAgICAgICAgICAgICAgICAgICAgICAgICAgICAgICAgICAg ICAgDQogICAgICAgICAgICAgICAgICAgICAgICAgICAgICAgICAgICAgICAgICAgICAgICAgICAgICAg ICAgICAgICAgICAgICAgICAgICAgICAgICAgICAgIC AgICAgICAgICAgICAgDQogICAgICAgICAgICAgICAgICAgICAgICAgICAgICAgICAgICAgICAgICAgIC AgICAgICAgICAgICAgICAgICAgICAgICAgICAgICAgICAgICAgICAgICAgICAgICAgICAgICAgDQogIC AgICAgICAgICAgICAgICAgICAgICAgICAgICAgICAg ICAgICAgICAgICAgICAgICAgICAgICAgICAgICAgICAgICAgICAgICAgICAgICAgICAgICAgICAgICAg ICAgICAgDQogICAgICAgICAgICAgICAgICAgICAgICAgICAgICAgICAgICAgICAgICAgICAgICAgICAg ICAgICAgICAgICAgICAgICAgICAgICAgICAgICAgIC SyBMBaEBSkRWOzKHPrRTLmTBt9H2wqEDAfFNPzQC2eBPo3Ju5+UNyWYoRdPBA6dlNfiC0KUN2zc6HfYL xbCSQho0IoMUu0OA7POEArKYgoFS3ACHxowd5NJLEhKXSznHYHw1pyQmYcOUX6XQChSiruVX2GTHXiB8 izgqLxCRKcBDHAOE7EUjJzD9MayU81ECFVCb7+DQpl cyCwOqbBUxYcOONzk7UfVIc7HW5TZNItQfxnt3QsKhDtNURLXIyfUJ4GPPJ6NIGtHTYuXw5DEKMtY103 uaFnFY1NDg7IEbClHS9hxf1GJgOyGZHhLibCLrl2GRqpHN8PxZRyOJnAoo3geaLiikTAl4OzlpHymKDX IAOjoDXlSBYZABN2eT6vHPYMOEWNHP0vVAOrZSHaGL PbRkHeILXbFxadUOICOLfIZmIvO0Bdh0ZzMnF3TEFrHjHcWUppLINcNaR4LL89pTgeZI3JXHYqGSMlWF 11DVViJVAwYd0MTp8PGvHeTM7rnu4EJzAwXKStKmjEEyo6CGxtEK1UfKEaD5GjpKNxc7aDZgQmW6DTTI AtFOHlNg5RUNKbIyGcPGLrKEjgTF7rVDTvHDRHiNuj pxX7KX6XZU5jyiBcMR4ZYcVvHj7tCi3JKaCbU6YjE6WpDEGnCGJRTAhcVU1PDIwvZR8bUB4Ve6ZHdZCu jG5myr6JUMMsZEYjJjoqke5KPufeW5W2bHwhNHUzQgSjGSWBQQrcNH1GEKUzHNS7MQStSHFrFGHYYqIs Q81pWW5LY3Frk61hKvJ0YWSnYpTqAKyqPQ27sVkppj MzxYHqsWjmNU5GMg6+BNeggnMvCxrIVodgRAXNNfIyJzMYQzVxKIBdDUKdPLEyDaE8BuWjAm5JPFMfQE NhQLJoObMtJDTxDCUcFTfsWZErZFKeDvd3YNSjASIrBV8XCjJiSUUgEiUePxrnBAFfOKMdbq4PRHGjAO KrSWO4RqSjKRLiRNFfHLtlFVOwGBVtNWX0LTFnJGWw DI3KOtGsXELrJKPpMbabMNMxDZEdxd6VWWDdNLNlIFn5XmHsINYkWFYbBFwyYZCwAEY2YCgyEJBsUJGd QV2GKsPbMAIpKACfUzQuMCCfXNOvml0DTTNoGUPkKsIvRRAxUTPkNYKqQFymNZNyISH9GPNnAGToCZZu YI3GZoAfXIZvTUH1YLCvARJsMFDknf4MQRVcXMGbJG R2HQKjQLJoKZOuBKsvNINeYSP8CcuqLUPpOZUlSF7NMoYxTRPyVEo5HJBcCAHxQKSynn3SLKWjZDSrRO ygTIQnRUIeOLAfGFopQMRlIDT3DBf4TWIwOJFuDQ9JAfZlVDPoMVe1AmGyOPMkYWZtjk5KYBZtFEMfJH CaZQDjJPAgERZnAAyvERIvBTSjJyazYJNnPUFzFY3X HfQyWTPjKkX7ACznZCAcXUUlik6PURLzJQUjIoWsExBiXUEuABGaSFjlLWWjSGDeVLo1CCIzIAMpVO3Z WwAcQUAnKkJkWBEcQJOiVJZnpg5DzCVmwStmxs4JBBcALx2YiVxeXPK6OUisKe3krSMjCXMjGRTXZp3X uvWtTHUqGHFUXAwuFDBnAXA9WNBtJUFiYCqqINkeFT CoBHX2UxJmOhmfYuMlWVEkJsL1UyXrTpH6MQWfTPVbMXH8EYRwPBcmX9IkR0YnUtX1LkC+RA3uGAr+Pg 4Rb6SfzxW7hjGmJJmuUmX5Gw5ALQHXV1LSSb== ID Date Data Source CHLAMYDIA & GC DNA AMPLIFICAT 09/05/2020 03:36:13 AM EDT eCW 1 ([facility]) Name Value Range Interpretation Code Description Data Lisa rce(s) Supporting Document(s) Chlamydia trachomatis rRNA [Presence] in Unspecified specimen by Probe and target amplification method NEGATIVE eCW1 ([facility]) ID Date Data Source PAP REQUEST FOR SERVICE 09/04/2020 02:57:17 AM EDT eCW1 ([facility]) Name Value Range Interpretation Code Description Data Lisa rce(s) Supporting Document(s) eCW1 ([facility]) ID Date Data Source LIPID PANEL (CARDIAC RISK) 08/23/2020 11:41:38 AM EDT eCW1 ( [facility]) Name Value Range Interpretation Code Description Data Lisa rce(s) Supporting Document(s) Cholesterol [Moles/volume] in Serum or Plasma 197 CHOLESTEROL LEVEL eCW1 ([facility]) Cholesterol in HDL [Moles/volume] in Serum or Plasma 40 HDL CHOLESTEROL eCW1 ([facility]) Triglyceride [Mass/volume] in Serum or Plasma by calculation 139 TRIGLYCERIDES LEVEL eCW1 ([facility]) 4.925 CHOLESTEROL RISK RATIO eCW1 ([facility]) Cholesterol in LDL [Mass/volume] in Serum or Plasma by calculation 129 LDL CHOLESTEROL eC1 ([facility]) 157 NON-HDL-C eCW1 ([facility]) ID Date Data Source [id number] 08/23/2020 11:41:38 AM EDT eCW1 ([facility]) Name Value Range Interpretation Code Description Data Lisa rce(s) Supporting Document(s) Hemoglobin A1c/Hemoglobin.total in Blood 5.6 HEMOGLOBIN A1c eCW1 ([facility]) ID Date Data Source FREE T4 & TSH PANEL 08/23/2020 11:41:38 AM EDT eCW1 ([facility]) Name Value Range Interpretation Code Description Data Lisa rce(s) Supporting Document(s) 0.611 THYROID STIMULATING HORMONE eC W1 ([facility]) 1.35 FREE T4 eCW1 ([facility]) ID Date Data Source Comprehensive Metabolic Profile (CMP) 08/23/2020 11:41:38 AM EDT eCW1 ([facility]) Name Value Range Interpretation Code Description Data Lisa rce(s) Supporting Document(s) > 60.0 eCW1 ([facility]) 0.81 CREATININE FOR GFR eCW1 ([facility]) 76 GLUCOSE, FASTING eCW1 ([facility]) 10 BLOOD UREA NITROGEN eCW1 ([facility]) 5.1 POTASSIUM SERUM eCW1 (Replaced by [facility]) 107 CHLORIDE LEVEL eCW1 ([facility]) 141 SODIUM LEVEL eCW1 ([facility]) 29 CARBON DIOXIDE LEVEL eCW1 ([facility]) 14 AST/SGOT eCW1 ([facility]) 39 ALT/SGPT eCW1 ([facility]) 94 ALKALINE PHOSPHATASE eCW1 ([facility]) 9.1 CALCIUM LEVEL eCW1 ([facility]) 0.4 BILIRUBIN,TOTAL eCW1 (Replaced by [facility]) 3.5 ALBUMIN eCW1 ([facility]) 7.0 TOTAL PROTEIN eCW1 ([facility]) 1.0 ALBUMIN/GLOBULIN RATIO eCW1 ([facility]) Procedure Social History Code Duration Value Status Description Data Source(s ) Smoking 12/26/2020 12:00:00 AM EST Unknown if ever smoked comp leted Unknown if ever smoked [facility] ([facility]) Smoking 12/25/2020 12:00:00 AM EST Unknown if ever smoked comp leted Unknown if ever smoked [facility] ([facility]) Smoking 12/03/2020 12:00:00 AM EST Unknown if ever smoked comp leted Unknown if ever smoked [facility] ([facility]) Smoking 11/26/2020 12:00:00 AM EST Never Smoker completed Never S moker eCW1 ([facility]) Smoking 11/25/2020 12:00:00 AM EST Unknown if ever smoked comp leted Unknown if ever smoked [facility] ([facility]) Smoking 11/19/2020 12:00:00 AM EST Unknown if ever smoked comp leted Unknown if ever smoked [facility] ([facility]) Smoking 11/06/2020 12:00:00 AM EST Unknown if ever smoked comp leted Unknown if ever smoked [facility] ([facility]) Smoking 11/05/2020 12:00:00 AM EST Unknown if ever smoked comp leted Unknown if ever smoked [facility] ([facility]) Smoking 10/22/2020 12:00:00 AM EST Unknown if ever smoked comp leted Unknown if ever smoked [facility] ([facility]) Smoking 09/25/2020 12:00:00 AM EST Unknown if ever smoked comp leted Unknown if ever smoked [facility] ([facility]) Smoking 09/10/2020 12:00:00 AM EDT Unknown if ever smoked comp leted Unknown if ever smoked [facility] ([facility]) Alcohol intake 09/06/2020 12:00:00 AM EDT Lifetime non-drinker (finding) completed Lifetime non-drinker (finding) [facility] Tobacco use and exposure 09/06/2020 12:00:00 AM EDT Never used co mpleted Never used [facility] Smoking 09/06/2020 12:00:00 AM EDT Never smoker completed Never s [facility] Smoking 08/28/2020 12:00:00 AM EDT Never Smoker completed Never S moker eCW1 ([facility]) Smoking 08/28/2020 12:00:00 AM EDT Never Smoker completed Never S moker eCW1 ([facility]) Smoking 08/28/2020 12:00:00 AM EDT Never Smoker completed Never S moker eCW1 ([facility]) Smoking 08/28/2020 12:00:00 AM EDT Never Smoker completed Never S moker eCW1 ([facility]) Smoking 08/28/2020 12:00:00 AM EDT Never Smoker completed Never S mukul eCW1 ([facility]) Smoking 08/27/2020 12:00:00 AM EDT Unknown if ever smoked comp leted Unknown if ever smoked [facility] ([facility]) Smoking 08/19/2020 12:00:00 AM EDT Unknown if ever smoked comp leted Unknown if ever smoked [facility] ([facility]) Smoking 05/14/2020 12:00:00 AM EDT Unknown if ever smoked comp leted Unknown if ever smoked [facility] ([facility]) Smoking 02/28/2020 12:00:00 AM EDT Unknown if ever smoked comp leted Unknown if ever smoked [facility] ([facility]) Smoking 02/13/2020 12:00:00 AM EDT Unknown if ever smoked comp leted Unknown if ever smoked [facility] ([facility]) Smoking 01/31/2020 12:00:00 AM EDT Unknown if ever smoked comp leted Unknown if ever smoked [facility] ([facility]) Smoking 01/16/2020 12:00:00 AM EST Unknown if ever smoked comp leted Unknown if ever smoked [facility] ([facility]) Smoking 11/17/2019 12:00:00 AM EST Unknown if ever smoked comp leted Unknown if ever smoked [facility] ([facility]) Smoking 11/16/2019 12:00:00 AM EST Unknown if ever smoked comp leted Unknown if ever smoked [facility] ([facility]) Vital Signs ID Date Data Source UNK Name Value Range Interpretation Code Description Data Source(s) Diastolic blood pressure 0 mm[Hg] Normal (applies to non-numeric results) 0 mm[Hg] [facility] ([facility]) Systolic blood pressure 0 mm[Hg] Normal (applies t o non-numeric results) 0 mm[Hg] [facility] ([facility]) Body mass index (BMI) [Ratio] 0.00 kg/m2 No rmal (applies to non-numeric results) 0.00 kg/m2 [facility] ([facility]) Body weight Measured 0.00 lbs Normal (applies to n on-numeric results) 0.00 lbs [facility] ([facility]) Body height 0.00 in Normal (applies to non-numeric resu lts) 0.00 in [facility] ([facility]) Diastolic blood pressure 76 mm[Hg] 76 mm[Hg] eCW1 ([facility]) Systolic blood pressure 124 mm[Hg] 124 mm[Hg] e CW1 ([facility]) Body temperature 97 [degF] 97 [degF] eCW1 ([facility]) Respiratory rate 18 /min 18 /min eCW1 ([facility]) Heart rate 111 /min 111 /min eCW1 (Replaced by [facility]) Body mass index (BMI) [Ratio] 64.12 kg/m2 64.12 kg/m2 eCW1 ([facility]) Body height 63 [in_i] 63 [in_i] eCW1 ([facility]) Body weight 362 [lb_av] 362 [lb_av] eCW1 ([facility]) Diastolic blood pressure 0 mm[Hg] Normal (applies to non-numeric results) 0 mm[Hg] [facility] ([facility]) Systolic blood pressure 0 mm[Hg] Normal (applies t o non-numeric results) 0 mm[Hg] [facility] ([facility]) Body mass index (BMI) [Ratio] 0.00 kg/m2 No rmal (applies to non-numeric results) 0.00 kg/m[facility] Body weight Measured 0.00 lbs Normal (applies to n on-numeric results) 0.00 lbs [facility] ([facility]) Body height 0.00 in Normal (applies to non-numeric resu lts) 0.00 in [facility] ([facility]) Diastolic blood pressure 76 mm[Hg] 76 mm[Hg] eCW1 ([facility]) Systolic blood pressure 126 mm[Hg] 126 mm[Hg] e CW1 ([facility]) Body mass index (BMI) [Ratio] 65.54 kg/m2 65.54 kg/m2 eCW1 ([facility]) Body height 63 [in_i] 63 [in_i] eCW1 ([facility]) Body weight 370 [lb_av] 370 [lb_av] eCW1 ([facility]) Diastolic blood pressure 0 mm[Hg] Normal (applies to non-numeric results) 0 mm[Hg] [facility] ([facility]) Systolic blood pressure 0 mm[Hg] Normal (applies t o non-numeric results) 0 mm[Hg] [facility] ([facility]) Body mass index (BMI) [Ratio] 0.00 kg/m2 No rmal (applies to non-numeric results) 0.00 kg/m2 [facility] ([facility]) Body weight Measured 0.00 lbs Normal (applies to n on-numeric results) 0.00 lbs [facility] ([facility]) Body height 0.00 in Normal (applies to non-numeric resu lts) 0.00 in [facility] ([facility]) Diastolic blood pressure 68 mm[Hg] 68 mm[Hg] eCW1 ([facility]) Systolic blood pressure 118 mm[Hg] 118 mm[Hg] e CW1 ([facility]) Body temperature 97.5 [degF] 97.5 [degF] eCW1 ( [facility]) Respiratory rate 18 /min 18 /min eCW1 ([facility]) Heart rate 113 /min 113 /min eCW1 (Replaced by [facility]) Body mass index (BMI) [Ratio] 65.50 kg/m2 65.50 kg/m2 eCW1 ([facility]) Body height 63 [in_i] 63 [in_i] eCW1 ([facility]) Body weight 369.8 [lb_av] 369.8 [lb_av] eCW1 ([facility]) Diastolic blood pressure 0 mm[Hg] Normal (applies to non-numeric results) 0 mm[Hg] [facility] ([facility]) Systolic blood pressure 0 mm[Hg] Normal (applies t o non-numeric results) 0 mm[Hg] [facility] ([facility]) Body mass index (BMI) [Ratio] 0.00 kg/m2 No rmal (applies to non-numeric results) 0.00 kg/m2 [facility] ([facility]) Body weight Measured 0.00 lbs Normal (applies to n on-numeric results) 0.00 lbs [facility] ([facility]) Body height 0.00 in Normal (applies to non-numeric resu lts) 0.00 in [facility] ([facility]) Diastolic blood pressure 0 mm[Hg] Normal (applies to non-numeric results) 0 mm[Hg] [facility] ([facility]) Systolic blood pressure 0 mm[Hg] Normal (applies t o non-numeric results) 0 mm[Hg] [facility] ([facility]) Body mass index (BMI) [Ratio] 0.00 kg/m2 No rmal (applies to non-numeric results) 0.00 kg/m2 [facility] ([facility]) Body weight Measured 0.00 lbs Normal (applies to n on-numeric results) 0.00 lbs [facility] ([facility]) Body height 0.00 in Normal (applies to non-numeric resu lts) 0.00 in [facility] ([facility]) Diastolic blood pressure 0 mm[Hg] Normal (applies to non-numeric results) 0 mm[Hg] [facility] ([facility]) Systolic blood pressure 0 mm[Hg] Normal (applies t o non-numeric results) 0 mm[Hg] [facility] ([facility]) Body mass index (BMI) [Ratio] 0.00 kg/m2 No rmal (applies to non-numeric results) 0.00 kg/m2 [facility] ([facility]) Body weight Measured 0.00 lbs Normal (applies to n on-numeric results) 0.00 lbs [facility] ([facility]) Body height 0.00 in Normal (applies to non-numeric resu lts) 0.00 in [facility] ([facility]) Patient Treatment Plan of Care Planned Activity Planned Date Details Description Data Source (s) Ortho Tri-Cyclen Lo 0.18/0.215/0.25 MG-25 MCG 08/28/2020 12:00:00 A M EDT eCW1 ([facility]) Ortho Tri-Cyclen Lo 0.18/0.215/0.25 MG-25 MCG 08/28/2020 12:00:00 A M EDT eCW1 ([facility]) Ortho Tri-Cyclen Lo 0.18/0.215/0.25 MG-25 MCG 08/28/2020 12:00:00 A M EDT eCW1 ([facility]) Ortho Tri-Cyclen Lo 0.18/0.215/0.25 MG-25 MCG 08/28/2020 12:00:00 A M EDT eCW1 ([facility]) Ortho Tri-Cyclen Lo 0.18/0.215/0.25 MG-25 MCG 08/28/2020 12:00:00 A M EDT eCW1 ([facility]) Hydrochlorothiazide 12.5 MG Oral Tablet 08/19/2020 12:00:00 AM EDT eCW1 ([facility]) Hydrochlorothiazide 12.5 MG Oral Tablet 08/19/2020 12:00:00 AM EDT eCW1 ([facility]) Hydrochlorothiazide 12.5 MG Oral Tablet 08/19/2020 12:00:00 AM EDT eCW1 ([facility]) Hydrochlorothiazide 12.5 MG Oral Tablet 08/19/2020 12:00:00 AM EDT eCW1 ([facility])
[2020-12-30 03:09] LABS: HEMATOCRIT 38.1 % (36.0-47.0); HEMOGLOBIN 11.6 g/dl (12.0-15.5); MEAN CORPUSCULAR HEMOGLOBIN 24.9 pg (27.0-33.0); MEAN CORPUSCULAR HGB CONC 30.4 g/dl (32.0-36.5); MEAN CORPUSCULAR VOLUME 81.8 fl (80.0-96.0); PLATELET COUNT, AUTOMATED 346 10^3/uL (150-450); RED BLOOD COUNT 4.66 10^6/uL (4.00-5.40)
[2020-12-30 03:57] LABS: ACETAMINOPHEN LEVEL < 2.0 UG/ML (10.0-30.0); ALBUMIN 3.2 GM/DL (3.2-5.2); ALT/SGPT 29 U/L (12-78); BILIRUBIN,DIRECT < 0.1 MG/DL (0.0-0.2); BILIRUBIN,TOTAL 0.3 MG/DL (0.2-1.0); BLOOD UREA NITROGEN 15 MG/DL (7-18); CALCIUM LEVEL 8.7 MG/DL (8.5-10.1); CARBON DIOXIDE LEVEL 26 MEQ/L (21-32); CHLORIDE LEVEL 106 MEQ/L (98-107); CREATININE FOR GFR 0.75 MG/DL (0.55-1.30); ETHYL ALCOHOL (ETHANOL) < 0.003 % (0.000-0.010); GLOMERULAR FILTRATION RATE > 60.0 (>60); GLUCOSE, FASTING 111 MG/DL (70-100); POTASSIUM SERUM 3.9 MEQ/L (3.5-5.1); SALICYLATE LEVEL < 1.7 MG/DL (5.0-30.0); SODIUM LEVEL 141 MEQ/L (136-145)
[2020-12-30 03:58] LABS: HCG, SERUM QUALITATIVE NEGATIVE (NEGATIVE)
[2020-12-30] MEDS ORDERED: TRAZ-186 PO (07:36)
[2020-12-30] MEDS ORDERED: NYST1POW9 TOP (07:36)
[2020-12-30] MEDS ORDERED: ARIP1TAB PO (07:36)
[2020-12-30] MEDS: LEVOTHYROXINE 50MCG TABLET (0.05MG) PO SCH (09:32)
[2020-12-30] MEDS: buPROPion **XL** TABLET 150MG (WELLBUTRIN XL) PO SCH (09:32)
[2020-12-30] MEDS: ARIPiprazole 10 MG TAB PO SCH (09:32)
[2020-12-30] MEDS: hydroCHLOROthiazide 12.5 MG CAPSULE PO SCH (09:33)
[2020-12-30 12:04] LABS: AMPHETAMINES LEVEL URINE POSITIVE (NEGATIVE); BARBITURATES URINE NEGATIVE (NEGATIVE); BENZODIAZEPINES URINE NEGATIVE (NEGATIVE); CANNABINOIDS URINE NEGATIVE (NEGATIVE); COCAINE METABOLITE URINE NEGATIVE (NEGATIVE); METHADONE URINE NEGATIVE (NEGATIVE); OPIATES URINE NEGATIVE (NEGATIVE); PHENCYCLIDINE URINE NEGATIVE (NEGATIVE)
[2020-12-30 14:01] LABS: RSV AMPLIFICATION NEGATIVE (NEGATIVE)
[2020-12-30] MEDS ORDERED: PRAZOSIN 1 MG CAP PO SCH ×2 (21:00)
[2020-12-30] MEDS ORDERED: traZODone 50 MG TAB PO SCH (21:00)
[2020-12-31] MEDS: LEVOTHYROXINE 50MCG TABLET (0.05MG) PO SCH (05:59)
--- NOTE | 2020-12-31 07:34 | ECGEPIP ---
[facility] - ED Test Date: 2020-12-30 Pat Name: CHRIS ZAVALA Department: Room: - Gender: Female Patient Transition Specialist: : 2000 Requested By: TRACEY Caroilna Order Number: [id number] Reading MD: Jose Parr Measurements Intervals [place] Rate: 108 P: AR: QRS: 40 QRSD: 88 T: 67 QT: 330 QTc: 442 Interpretive Statements SINUS TACHYCARDIA WITH FIRST DEGREE AV BLOCK POOR R WAVE PROGRESSION SIMILAR TO 10/06/20 Electronically Signed on 12-31-2020 7:33:40 EST by Jose Parr
[2020-12-31] MEDS: buPROPion **XL** TABLET 150MG (WELLBUTRIN XL) PO SCH (08:14)
[2020-12-31] MEDS: ARIPiprazole 10 MG TAB PO SCH (08:15)
[2020-12-31] MEDS: hydroCHLOROthiazide 12.5 MG CAPSULE PO SCH (08:15)
[2020-12-31] MEDS ORDERED: ACETAMINOPHEN TAB 650MG DOSE (2X325MG) PO PRN (14:15)
[2020-12-31] MEDS ORDERED: OLANZapine 5 MG TAB PO PRN (14:15)
[2020-12-31] MEDS ORDERED: MAALOX 30 ML SUSP *UDC PO PRN (14:15)
[2020-12-31] MEDS ORDERED: MOM 30ML SUSPENSION UDC PO PRN (14:15)
[2020-12-31] MEDS ORDERED: traZODone 50 MG TAB PO PRN (14:15)
--- OUTSIDE RECORDS SUMMARY | 2020-12-31 14:22 | CCD ---
Author Author [facility] Organization [facility] Address Unknown Phone Unavailable Care Team Providers Care Neck Band Operator Name Role Phone Ahmet Don PMH-UNIT TENDER Unavailable Unavailable Ahmet Don PMH-UNIT TENDER Unavailable Unavailable Ahmet Don PMH-UNIT TENDER Unavailable Unavailable Ahmet Don PMH-UNIT TENDER Unavailable Unavailable Ahmet Don PMH-UNIT TENDER Unavailable Unavailable Ahmet Don PMH-UNIT TENDER Unavailable Unavailable Elizabeth MORRISON Unavailable Unavailable Eugneio Hernandes Unavailable Cecilio Eugenio Unavailable Peñaloza, Masha [...] is protected by Article 27-F of the [facility] Public Health law. If you continue you may have access to information: Regarding HIV / AIDS; Provided by facilities licensed or operated by the [facility] Office of Mental Health; or Provided by the [facility] Office for People With Developmental Disabilities. If such information is present, then the following [facility] mandated warning applies: This information has [...] law may result in a fine or nursing home sentence or both. A general authorization for the release of medical or other information is NOT sufficient authorization for further disc losure. Allergies and Adverse Reactions Type Description Substance Reaction Status Data Source(s ) Propensity to adverse reactions to substance Ambien (zolpide m) Zolpidem tartrate 10 MG Oral Tablet [Ambien] Active [facility]) Drug Class NO KNOWN ALLERGIES NO KNOWN ALLERGIES [facility] Family History Family Member Name Family Member Gender Family Member Status Date o f Status Description Data Source(s) Unknown Unknown Problem [facility] ([facility] father Encounters Encounter Providers Location Date Indications Data Source(s ) Outpatient Attender: Saumya Don [facility]-UNIT TENDER [facility] 12/26/2020 02:00:00 AM EST - 12/26/2020 02:00:00 AM EST [facility] ([facility]) Attender: Saumya Don [facility] 12/26/2020 12: 00:00 AM EST [facility] ([facility]) Attender: Eugenio Hernandes 12/25/2020 12:00:00 AM EST [facility] ([facility]) [id number]"Psychotherapy Attender: Eugenio Hernandes [facility] 12/24/2020 02:00:00 AM EST - 12/24/2020 02:00:00 AM EST [facility] ([facility]) Attender: Eugenio Hernandes 12/03/2020 12:00:00 AM EST [facility] ([facility]) Extended Individual Psychotherapy - 45 min Attender: Anthony yarbrough [facility] 12/02/2020 03:00:00 AM EST - 12/02/2020 03:00:00 AM EST [facility] ([facility]) [place] [address] [address] 11/26/2020 12:00:00 AM EST eCW1 (On license of [facility]) Extended Individual Psychotherapy - 45 min Attender: Anthony yarbrough [facility] 11/25/2020 03:00:00 AM EST - 11/25/2020 03:00:00 AM EST [facility] ([facility]) Attender: Eugenio Hernandes 11/25/2020 12:00:00 AM EST [facility] ([facility]) Attender: Eugenio Hernandes 11/19/2020 12:00:00 AM EST [facility] ([facility]) Extended Individual Psychotherapy - 45 min Attender: Anthony yarbrough Cecilio [facility] 11/18/2020 01:00:00 AM EST - 11/18/2020 01:00:00 AM EST [facility] ([facility]) Outpatient Attender: Saumya Don [facility] 11/06/2020 01:30:00 AM EST - 11/06/2020 01:30:00 AM EST [facility] ([facility]) Attender: Saumya Don [facility] 11/06/2020 12: 00:00 AM EST [facility] ([facility]) Attender: Eugenio Hernandes 11/05/2020 12:00:00 AM EST [facility] ([facility]) Extended Individual Psychotherapy - 45 min Attender: Anthony yarbrough Cecilio [facility] 11/04/2020 03:00:00 AM EST - 11/04/2020 03:00:00 AM EST [facility] ([facility]) [place] [address] [address] 11/01/2020 12:00:00 AM EST eCW1 (On license of [facility]) Attender: Eugenio Hernandes 10/22/2020 12:00:00 AM EST [facility] ([facility]) Extended Individual Psychotherapy - 45 min Attender: Anthony yarbrough Cecilio [facility] 10/21/2020 02:00:00 AM EST - 10/21/2020 02:00:00 AM EST [facility] ([facility]) Outpatient Attender: Masha Peñaloza 10/08/2020 12:00:00 AM [facility] [place] [address] [address] 10/04/2020 12:00:00 AM EST eCW1 (On license of [facility]) Outpatient Attender: CHARLIE MORRISON [id number] 09/27/2020 12:00 :00 AM EST Morbid (severe) obesity due to excess calories [facility] Morbid (severe) obesity due to excess ca lories Outpatient 09/26/2020 12:00:00 AM EST [facility] Attender: Eugenio Hernandes 09/25/2020 12:00:00 AM EST [facility] ([facility]) Extended Individual Psychotherapy - 45 min Attender: Anthony yarbrough [facility] 09/24/2020 01:00:00 AM EST - 09/24/2020 01:00:00 AM EST [facility] ([facility]) [place] [address] [address] 09/11/2020 12:00:00 AM EDT eCW1 (On license of [facility]) Extended Individual Psychotherapy - 45 min Attender: Anthony Hernandes [facility] 09/10/2020 02:00:00 AM EDT - 09/10/2020 02:00:00 AM EDT [facility] ([facility]) Attender: Eugenio Hernandes 09/10/2020 12:00:00 AM EDT [facility] ([facility]) Outpatient [address] [facility] [place] [address] 08/28/2020 12:00:00 AM EDT eCW1 (On license of [facility]) Outpatient Attender: Saumya OWUSU [facility] 08/27/2020 02:30:00 AM EDT - 08/27/2020 02:30:00 AM EDT [facility] ([facility]) Attender: Saumya OWUSU 08/27/2020 12: 00:00 AM EDT [facility] ([facility]) Outpatient [address] [facility] [place] [address] 08/19/2020 12:00:00 AM EDT eCW1 (On license of [facility]) Attender: Eugenio Hernandes 08/19/2020 12:00:00 AM EDT [facility] ([facility]) [id number]"Psychotherapy Attender: Eugenio Hernandes [facility] 08/16/2020 02:00:00 AM EDT - 08/16/2020 02:00:00 AM EDT [facility] ([facility]) Outpatient 08/09/2020 12:00:00 AM EDT [facility] Outpatient Attender: Saumya Don [facility] 05/14/2020 03:30:00 AM EDT - 05/14/2020 03:30:00 AM EDT [facility] ([facility]) Attender: Saumya Don [facility] 05/14/2020 12: 00:00 AM EDT [facility] ([facility]) Outpatient Attender: Graciela MARCUS 04/23/2020 07:31:08 PM ED [place] [address] [address] 04/09/2020 12:00:00 AM EDT eCW1 (On license of [facility]) [address] [place] [address] 02/29/2020 12:00:00 AM EDT eCW1 (On license of [facility]) Attender: Trung Holguin 02/28/2020 12:00:0 0 AM EDT [facility] ([facility]) TEMPMHCTelemed 20" psychotherapy [facility] 02/27/2020 03:00:00 AM EDT - 02/27/2020 03:00:00 AM EDT [facility] ([facility]) TEMPMHCTelemed 30" Psychotherapy Attender: Trung eugene [facility] 02/13/2020 03:00:00 AM EDT - 02/13/2020 03:00:00 AM EDT [facility] ([facility]) Attender: Trung Holguin 02/13/2020 12:00:0 0 AM EDT [facility] ([facility]) [address] [address] 02/06/2020 12:00:00 AM EDT eCW1 (On license of [facility]) Attender: Trung Holguin 01/31/2020 12:00:0 0 AM EDT [facility] ([facility]) TEMPMHCTelemed 30" Psychotherapy Attender: Trung eugene [facility] 01/30/2020 04:15:00 AM EDT - 01/30/2020 04:15:00 AM EDT [facility] ([facility]) [facility] [address], [facility] [address] 01/29/2020 12:00:00 AM EDT eCW1 (On license of [facility]) [facility] [address] [facility] [address] 01/19/2020 12:00:00 AM EST eCW1 (On license of [facility]) Outpatient Attender: Saumya COOPER-JUDITH [facility] 01/16/2020 11:30:00 AM EST - 01/16/2020 11:30:00 AM EST [facility] ([facility]) Extended Individual Psychotherapy - 45 min Attender: Jonathon domenica Menjivarjabier [facility] 01/16/2020 04:00:00 AM EST - 01/16/2020 04:00:00 AM EST [facility] ([facility]) Attender: Trung Holguin 01/16/2020 12:00:0 0 AM EST [facility] ([facility]) Attender: Saumya COOPER-JUDITH 01/16/2020 12: 00:00 AM EST [facility] ([facility]) [facility] [address] [place] [address] 01/16/2020 12:00:00 AM EST eCW1 (On license of [facility]) [facility] [address] [place] [address] 12/19/2019 12:00:00 AM EST eCW1 ([facility]) [facility] [address] [place] [address] 12/19/2019 12:00:00 AM EST eCW1 (On license of [facility]) [facility] [address] [facility] [address] 12/05/2019 12:00:00 AM EST eCW1 (On license of [facility]) [facility] [address] [facility] [address] 12/05/2019 12:00:00 AM EST eCW1 (On license of [facility]) [facility] [address] [address] 11/30/2019 12:00:00 AM EST eCW1 (On license of [facility]) Outpatient Attender: Saumya Don [facility] 11/17/2019 02:00:00 AM EST - 11/17/2019 02:00:00 AM EST [facility] ([facility]) Attender: Saumya OWUSU 11/17/2019 12: 00:00 AM EST [facility] ([facility]) Attender: Trung Holguin 11/16/2019 12:00:0 0 AM EST [facility] ([facility]) Brief Individual Psychotherapy - 30 min Attender: Trung ortez [facility] 11/14/2019 03:00:00 AM EST - 11/14/2019 03:00:00 AM EST [facility] ([facility]) Functional Status Medications Medication Brand Name Start [...] TWO TIMES A DAY EXTERNALLY SOLD: 12/28/2020 [facility] 5 mg 12/04/2020 12:00:00 AM EST capsule 60 TAKE TWO CAPSULES BY MOUTH AT BEDTIME TAKE TWO CAPSULES BY MOUTH AT BEDTIME SOLD: 12/30/2020 [facility] 5 mg 12/04/2020 12:00:00 AM [...] ONE TABLET BY MOUTH EVERY DAY AT [facility] NEEDED SOLD: 12/05/2020 [facility] 24 HR Bupropion Hydrochloride 300 MG Extended Release Oral T ablet bupropion HCl 11/06/2020 12:00:00 AM EST 300 mg by mouth completed [id number] bupropion HCl by mouth [id number] 11/06/2020 every morning 300 mg tablet extended release 24 hr 17519 [id number] Saumya Don [id number] P sychiatric/Mental Health [facility] ([facility]) Trazodone Hydrochloride 50 MG Oral Tablet trazodone 2019 12:00:00 AM EST 50 mg by mouth completed [id number] trazodone by mouth C382 88 11/06/2020 at bedtime 50 mg tablet as needed 32916 [id number] Massimo Don [id number] Psychiatric/Mental Health [facility] ([facility]) 10 mg 11/06/2020 12:00:00 AM EST tablet 30 TAKE ONE TABLET BY MOUTH EVERY DAY TAKE ONE TABLET BY MOUTH EVERY DAY SOLD: 12/09/2020 [facility] Trazodone Hydrochloride 50 MG Oral Tablet trazodone 2019 12:00:00 AM EST 50 mg by mouth completed 207391 trazodone by mouth C382 88 11/06/2020 at bedtime 50 mg tablet as needed 33022 594817 [id number] Massimo Don [id number] Psychiatric/Mental Health [facility] ([facility]) 24 HR Bupropion Hydrochloride 300 MG Extended Release Oral T ablet BUPROPION HCL 11/06/2020 12:00:00 AM EST tablet extended release 24 hr 30 TAKE ONE TABLET BY MOUTH EVERY MORNING TAKE ONE TABLET BY MOUTH EVERY MORNING SOLD: 12/14/2020 [facility] aripiprazole 10 MG Oral Tablet aripiprazole 11/06/2020 12:00:00 AM ES T 10 mg by mouth completed [id number] aripiprazole by mouth [id number] 1 01/07/2020 once a day 10 mg tablet 15687 [id number] Saumya brooks [id number] Psychiatric/Mental Health [facility] ([facility]) 50 mg 11/06/2020 12:00:00 AM EST tablet 30 TAKE ONE TABLET BY MOUTH EVERY DAY AT BEDTIME NEEDED TAKE ONE TABLET BY MOUTH EVERY DAY AT [facility] NEEDED SOLD: 11/07/2020 [facility] aripiprazole 10 MG Oral Tablet aripiprazole 11/06/2020 12:00:00 AM ES T 10 mg by mouth completed [id number] aripiprazole by mouth Z32496 1 01/07/2020 once a day 10 mg tablet 10230 277609 [id number] Saumya brooks [id number] Psychiatric/Mental Health [facility] ([facility]) 10 mg 11/06/2020 12:00:00 AM EST tablet 30 TAKE ONE TABLET BY MOUTH EVERY DAY TAKE ONE TABLET BY MOUTH EVERY DAY SOLD: 11/07/2020 [facility] Prazosin 5 MG Oral Capsule prazosin 11/06/2020 12:00:00 AM EST 5 mg by mouth completed [id number] prazosin by mouth L04219 11/06/2020 at bedtime 5 mg capsule 21603 918060 [id number] Maricruz Vizcarra [id number] Nurse Practitioner [facility] ([facility]) 5 mg 11/06/2020 12:00:00 AM EST capsule 50 TAKE TWO CAPSULES BY MOUTH EVERY DAY AT BEDTIME TAKE TWO CAPSULES BY MOUTH EVERY DAY AT BEDTIME SOLD: 2019 [facility] Prazosin 5 MG Oral Capsule prazosin 11/06/2020 12:00:00 AM EST 5 mg by mouth completed [id number] prazosin by mouth Z06244 11/06/2020 at bedtime 5 mg capsule 21294 [id number] Maricruz Vizcarra [id number] Nurse Practitioner [facility] ([facility]) 24 HR Bupropion Hydrochloride 150 MG Extended [...] Ortho Tri-Cyclen Lo 0.18/0.215/0.25 MG-25 MCG eCW1 ([facility]) Ortho Tri-Cyclen Lo 0.18/0.215/0.25 MG-25 MCG UNK 08/28/20 12:00:00 AM EDT 1.0 {tablet} active Ortho Tri-Cyclen Lo 0.18/0.215/0.25 MG-25 MCG eCW1 ([facility]) Ortho Tri-Cyclen Lo 0.18/0.215/0.25 MG-25 MCG UNK 10/14/20 20 12:00:00 AM EDT 1.0 {tablet} active Ortho Tri-Cyclen Lo 0.18/0.215/0.25 MG-25 MCG eCW1 ([facility]) Ortho Tri-Cyclen Lo 0.18/0.215/0.25 MG-25 MCG UNK 08/28/20 12:00:00 AM EDT 1.0 {tablet} active Ortho Tri-Cyclen Lo 0.18/0.215/0.25 MG-25 MCG eCW1 ([facility]) Ortho Tri-Cyclen Lo 0.18/0.215/0.25 MG-25 MCG UNK 08/28/20 12:00:00 AM EDT 1.0 {tablet} active Ortho Tri-Cyclen Lo 0.18/0.215/0.25 MG-25 MCG eCW1 ([facility]) Ortho Tri-Cyclen Lo 0.18/0.215/0.25 MG-25 MCG UNK 08/28/20 12:00:00 AM EDT 1.0 {tablet} active Ortho Tri-Cyclen Lo 0.18/0.215/0.25 MG-25 MCG eCW1 ([facility]) 50 mcg 08/22/2020 12:00:00 AM EDT tablet [...] {tablet_in_the_morning} acti ve Hydrochlorothiazide 12.5 MG eCW1 ([facility]) Hydrochlorothiazide 12.5 MG Oral Tablet Hydrochlorothiazide 12.5 MG 08/19/2020 12:00:00 AM EDT 1.0 {tablet_in_the_morning} susp ended Hydrochlorothiazide 12.5 MG eCW1 ([facility]) Hydrochlorothiazide 12.5 MG Oral Tablet Hydrochlorothiazide 12.5 MG 08/19/2020 12:00:00 AM EDT 1.0 {tablet_in_the_morning} acti ve Hydrochlorothiazide 12.5 MG eCW1 ([facility]) Hydrochlorothiazide 12.5 MG Oral Tablet Hydrochlorothiazide 12.5 MG 08/19/2020 12:00:00 AM EDT 1.0 {tablet_in_the_morning} acti ve Hydrochlorothiazide 12.5 MG eCW1 ([facility]) Hydrochlorothiazide 12.5 MG Oral Tablet Hydrochlorothiazide 12.5 MG 08/19/2020 12:00:00 AM EDT 1.0 {tablet_in_the_morning} acti ve Hydrochlorothiazide 12.5 MG eCW1 ([facility]) Hydrochlorothiazide 12.5 MG Oral Tablet Hydrochlorothiazide 12.5 MG 08/19/2020 12:00:00 AM EDT 1.0 {tablet_in_the_morning} acti ve Hydrochlorothiazide 12.5 MG eCW1 ([facility]) [place] Carbon[facility] 300 MG Oral Capsule lithium carbonate 12:00:00 AM EDT 300 mg by mouth completed [id number] lithium car bonate by mouth [id number] 08/15/2020 at bedtime 300 mg capsule 96068 [id number] Devin Hoskins [id number] Psychiatry [facility] ([facility]) 300 mg 08/15/2020 12:00:00 AM [...] AM EDT 150 mg by mouth completed 290435 bupropion HCl by mouth R64049 08/15/2020 once a day 150 mg tablet ex tended release 24 hr 34220 976927 [id number] Saumya Don [id number] P sychiatric/Mental Health [facility] ([facility]) 300 mg 08/15/2020 12:00:00 AM EDT capsule 30 TAKE ONE CAPSULE BY MOUTH EVERY DAY AT BEDTIME TAKE ONE CAPSULE BY MOUTH EVERY DAY AT BEDTIME SOLD: [facility] 24 HR Bupropion Hydrochloride 150 MG Extended Release Oral T ablet bupropion HCl 08/15/2020 12:00:00 AM EDT 150 mg by mouth completed 828741 bupropion HCl by mouth [id number] 08/15/2020 once a day 150 mg tablet ex tended release 24 hr 21189 977079 [id number] Saumya Don [id number] P sychiatric/Mental Health [facility] ([facility]) 24 HR Bupropion Hydrochloride 300 MG Extended Release Oral T ablet bupropion HCl 08/15/2020 12:00:00 AM EDT 300 mg by mouth completed 163736 bupropion HCl by mouth [id number] 08/15/2020 10/14/2020 once a day 30 300 mg tablet extended release 24 hr 49183 [id number] Devin Hoskins [id number] Psychi atry [facility] ([facility]) 24 HR Bupropion Hydrochloride 300 MG Extended Release Oral T ablet BUPROPION HCL 08/15/2020 12:00:00 AM EDT tablet extended release 24 hr 30 TAKE ONE TABLET BY MOUTH EVERY DAY TAKE ONE TABLET BY MOUTH EVERY DAY SOLD: 09/16/2020 [facility] [place] [facility] 300 MG Oral Capsule lithium carbonate 12:00:00 AM EDT 300 mg by mouth completed 162056 lithium car bonate by mouth H35057 08/15/2020 at bedtime 300 mg capsule 69128 [id number] [facility] [id number] Psychiatry [facility] ([facility]) 24 HR Bupropion Hydrochloride 300 [...] AM EDT 120 mg by mouth completed [id number] Latuda by mout h [id number] 04/25/2020 10/14/2020 once a day 30 120 mg tablet 27857 [id number] Devin Hoskins [id number] Psychiatry [facility] ([facility]) Lurasidone Hydrochloride 120 MG Oral Tablet [Latuda] Latuda 04/25/2020 12:00:00 AM EDT 120 mg by mouth completed [id number] Latuda by mout h [id number] 04/25/2020 06/24/2020 once a day 30 120 mg tablet 78156 [id number] Saumya Don [id number] Psychiatric/Mental Health [facility] ([facility]) 300 mg 04/24/2020 12:00:00 AM [...] 02/23/2020 12:00:00 AM EDT 20 mg completed [id number] Latuda 02/23/2020 30 20 mg tablet 23925 921298 [id number] Saumya Don [id number] P sychiatric/Mental Health [facility] ([facility]) 20 mg 02/23/2020 12:00:00 AM EDT [...] 02/23/2020 12:00:00 AM EDT 20 mg completed [id number] Latuda 02/23/2020 30 20 mg tablet 07906 917119 [id number] Saumya Don [id number] P sychiatric/Mental Health [facility] ([facility]) 300 mg 02/05/2020 12:00:00 AM EDT [...] 01/26/2020 12:00:00 AM EDT 150 mg completed [id number] bupropion HCl 01/26/2020 30 150 mg tablet extended release 24 hr 14518 499421 [id number] Saumya Don [id number] Psychiatric/Mental Health [facility] ([facility]) 5 mg 01/26/2020 12:00:00 AM [...] MOUTH EVERY DAY SOLD: 02/26/2020 [facility] [place] 300 MG Oral Capsule lithium carbonate 12:00:00 AM EDT 300 mg completed [id number] lithium carbonate 30 300 mg capsule 24988 700619 [id number] Saumya Don [id number] Psychiatric/Mental Health [facility] ([facility]) Prazosin 5 MG Oral Capsule prazosin 01/26/2020 12:00:00 AM EDT 5 mg completed [id number] prazosin 01/26/2020 30 5 mg capsule 98921 681612 [id number] Saumyaester Don [id number] Psychiatric/Mental Health [facility] ([facility]) 24 HR Bupropion Hydrochloride 300 MG Extended Release Oral T ablet bupropion HCl 01/26/2020 12:00:00 AM EDT 300 mg completed [id number] bupropion HCl 01/26/2020 07/24/2020 30 300 mg tablet extended release 24 hr 34151 798723 [id number] Saumyaester Don [id number] Psychiatric/Mental Health [facility] ([facility]) 5 mg 01/26/2020 12:00:00 AM EDT capsule 60 TAKE TWO CAPSULES BY MOUTH AT BEDTIME TAKE TWO CAPSULES BY MOUTH AT BEDTIME SOLD: 04/06/2020 [facility] 24 HR Bupropion Hydrochloride 150 MG Extended Release Oral T ablet bupropion HCl 01/26/2020 12:00:00 AM EDT 150 mg completed [id number] bupropion HCl 01/26/2020 07/24/2020 30 150 mg tablet extended release 24 hr 31399 747491 [id number] Saumyaester Don [id number] Psychiatric/Mental Health [facility] ([facility]) 300 mg 01/26/2020 12:00:00 AM EDT tablet extended release 24 hr 30 TAKE ONE TABLET BY MOUTH EVERY MORNING TAKE ONE TABLET BY MOUTH EVERY MORNING SOLD: 03/22/2020 [facility] Prazosin 5 MG Oral Capsule prazosin 01/26/2020 12:00:00 AM EDT 5 mg completed [id number] prazosin 01/26/2020 30 5 mg capsule 42296 576394 [id number] Saumyaester Don [id number] Psychiatric/Mental Health [facility] ([facility]) 24 HR Bupropion Hydrochloride 150 MG Extended Release Oral T ablet bupropion HCl 01/26/2020 12:00:00 AM EDT 150 mg completed [id number] bupropion HCl 01/26/2020 30 150 mg tablet extended release 24 hr 00177 832853 [id number] Saumyaester Don [id number] Psychiatric/Mental Health [facility] ([facility]) 24 HR Bupropion Hydrochloride 300 MG Extended Release Oral T ablet bupropion HCl 01/26/2020 12:00:00 AM EDT 300 mg completed [id number] bupropion HCl 01/26/2020 30 300 mg tablet extended release 24 hr 15451 864476 [id number] Saumya Don [id number] Psychiatric/Mental Health [facility] ([facility]) [place] 300 MG Oral Capsule lithium carbonate 12:00:00 AM EDT 300 mg completed [id number] lithium carbonate 01/26/2020 07/24/2020 30 300 mg capsule 17634 [id number] Nya Don [id number] Psychiatric/Mental Health [facility] ([facility]) 24 HR Bupropion Hydrochloride 150 MG Extended Release Oral T ablet BUPROPION HCL 01/26/2020 12:00:00 AM EDT tablet extended release 24 hr 30 TAKE ONE TABLET BY MOUTH EVERY DAY TAKE ONE TABLET BY MOUTH EVERY DAY SOLD: 01/28/2020 [facility] Prazosin 5 MG Oral Capsule prazosin 01/26/2020 12:00:00 AM EDT 5 mg completed [id number] prazosin 01/26/2020 30 5 mg capsule 16553 925550 [id number] Saumyaester Don [id number] Psychiatric/Mental Health [facility] ([facility]) 5 mg 01/26/2020 12:00:00 AM EDT capsule 60 TAKE TWO CAPSULES BY MOUTH AT BEDTIME TAKE TWO CAPSULES BY MOUTH AT BEDTIME SOLD: 02/26/2020 [facility] Prazosin 5 MG Oral Capsule prazosin 01/26/2020 12:00:00 AM EDT 5 mg completed [id number] prazosin 01/26/2020 07/24/2020 30 5 mg capsule 05994 622660 [id number] Saumyaanthony Don [id number] Psychiatric/Mental Health [facility] ([facility]) 24 HR Bupropion Hydrochloride 300 MG Extended Release Oral T ablet bupropion HCl 01/26/2020 12:00:00 AM EDT 300 mg completed [id number] bupropion HCl 01/26/2020 30 300 mg tablet extended release 24 hr 68018 669449 [id number] Saumyaanthony Don [id number] Psychiatric/Mental Health [facility] ([facility]) 300 mg 01/26/2020 12:00:00 AM EDT tablet extended release 24 hr 30 TAKE ONE TABLET BY MOUTH EVERY MORNING TAKE ONE TABLET BY MOUTH EVERY MORNING SOLD: 02/26/2020 [facility] [place] 300 MG Oral Capsule lithium carbonate 12:00:00 AM EDT 300 mg completed [id number] lithium carbonate 30 300 mg capsule 68691 [id number] Saumya Arian [id number] Psychiatric/Mental Health [facility] ([facility]) 300 mg 01/26/2020 12:00:00 AM EDT [...] AM EST 20 mg by mouth completed [id number] Latuda by mouth [id number] 01/19/2020 02/18/2020 once a day 30 20 mg tablet 73328 [id number] Saumya Don [id number] [facility] ([facility]) Lurasidone Hydrochloride 20 MG Oral Tablet [Latuda] Latuda 01/19/2020 12:00:00 AM EST 20 mg by mouth completed [id number] Latuda by mouth [id number] 01/19/2020 02/18/2020 once a day 30 20 mg tablet 33128 [id number] Saumya Don [id number] [facility] ([facility]) 120 mg 12/30/2019 12:00:00 AM EST tablet 30 TAKE ONE TABLET BY MOUTH EVERY MORNING DIRECTED WITH 20 MG TAKE ONE TABLET BY MOUTH EVERY MORNING A S DIRECTED WITH 20 MG SOLD: 01/01/2020 [facility] Lurasidone Hydrochloride 120 MG Oral Tablet [Latuda] Latuda 12/29/2019 12:00:00 AM EST 120 mg by mouth completed [id number] Latuda by mout h [id number] 12/29/2019 02/18/2020 every morning 30 120 mg tablet as directed 7415 9 113355 [id number] Saumya Don [id number] [facility] ([facility]) Lurasidone Hydrochloride 120 MG Oral Tablet [Latuda] Latuda 12/29/2019 12:00:00 AM EST 120 mg by mouth completed [id number] Latuda by thania metzger [id number] 12/29/2019 02/18/2020 every morning 30 120 mg tablet as directed 7415 9 [id number] Saumya Don [id number] Psychiatric/Mental Health [facility] ([facility]) 0.25-35 mg-mcg 12/21/2019 12:00:00 AM [...] by mouth completed [id number] prazosin by mouth [id number] 10/27/201910/2020 at bedtime 30 5 mg capsule 53986 [id number] Saumya Don [id number] Psychiatric[facility]Mental Health [facility] ([facility]) Prazosin 5 MG Oral Capsule prazosin 10/27/2019 12:00:00 AM EST 5 mg by mouth completed [id number] prazosin by mouth [id number] 10/27/201910/2020 at bedtime 30 5 mg capsule 19671 490333 [id number] Saumya Don [id number] Psych[facility]Mental Health [facility] ([facility]) Prazosin 5 MG Oral Capsule prazosin 10/27/2019 12:00:00 AM EST 5 mg by mouth completed [id number] prazosin by mouth [id number] 10/27/201910/2020 at bedtime 30 5 mg capsule 57363 118042 [id number] Saumya Don [id number] [facility]Mental [facility] ([facility]) Lurasidone Hydrochloride 120 MG Oral Tablet [Latuda] Latuda 10/27/2019 12:00:00 AM EST 120 mg by mouth completed [id number] Latuda by mout h [id number] 10/27/2019 12/26/2019 every evening 30 120 mg tablet with meals 95998 950308 [id number] Saumya Don [id number] [facility] ([facility]) Lurasidone Hydrochloride 120 MG Oral Tablet [Latuda] Latuda 10/27/2019 12:00:00 AM EST 120 mg by mouth completed [id number] Latuda by mout h [id number] 10/27/2019 12/26/2019 every evening 30 120 mg tablet with meals 35781 400083 [id number] Saumya oDn [id number] [facility] ([facility]) 24 HR Bupropion Hydrochloride 150 MG Extended Release Oral T ablet bupropion HCl 10/27/2019 12:00:00 AM EST 150 mg by mouth completed [id number] bupropion HCl by mouth [id number] 10/27/2019 01/25/2020 once a day 30 150 mg tablet extended release 24 hr 66790 [id number] [id number] Saumya Don [id number] [facility] ([facility]) 24 HR Bupropion Hydrochloride 150 MG Extended Release Oral T ablet bupropion HCl 10/27/2019 12:00:00 AM EST 150 mg by mouth completed [id number] bupropion HCl by mouth [id number] 10/27/2019 01/25/2020 once a day 30 150 mg tablet extended release 24 hr 87539 [id number] Saumyaester Don [id number] [facility] ([facility]) 0.25-35 mg-mcg 10/04/2019 12:00:00 AM EST tablet 28 TAKE ONE TABLET BY MOUTH EVERY DAY TAKE ONE TABLET BY MOUTH EVERY DAY SOLD: 11/05/2019 [facility] Nystatin 100 UNT/MG Topical Powder 100,000 unit/gram NYSTATI N 05/13/2019 12:00:00 AM EDT powder 15 APPLY TO AFFECTED AREA TW O TIMES A DAY APPLY TO AFFECTED AREA TWO TIMES A DAY SOLD: 12/21/2019 [facility] Insurance Providers Payer name Policy type / Coverage type Policy ID Covered green party ID Covered green party's relationship to fuentes Policy Fuentes Plan Information EMEDNY [id number] SP [id number] UN COMMUNITY PLAN [facility] [id number] SP [id number] [facility] [id number] Self [id number] [place] [id number] SP [id number] UNHC COMMUNITY PLAN [facility] [id number] SP [id number] Self Pay P none S none MEDICAID [id number] SP [id number] [place] 020/520 [id number] SP [id number] [facility] [id number] SP [id number] MEDICAID [facility] [id number] SP [id number] BLUE CROSS [id number] SP [id number] SELF PAY [place] 020/520 [id number] SP [id number] [facility] [id number] SP [id number] [place]BS [place] PPO 302/307 [id number] SP [id number] SELF PAY MEDICAID [facility] [id number] SP [id number] BLUE CROSS [id number] SP [id number] ANS-Medicaid [id number] ANSI-Medicaid [id number] ANSI-Medicaid [id number] ANSI-Medicaid [id number] ANSI-Medicaid [id number] ANSI-Medicaid [id number] [facility] COMMUNITY PLAN [id number] SP [id number] BLUE CROSS [id number] SP [id number] ANSI-Medicaid [id number] ANSI-Medicaid [id number] Self Pay P UNAVAILABLE S [facility] O [id number] S [id number] ANSI-Medicaid [id number] ANSI-Medicaid [id number] ANSI-Medicaid [id number] ANSI-Medicaid [id number] ANSI-Medicaid [id number] ANSI-Medicaid [id number] ANSI-Medicaid [id number] ANSI-Medicaid [id number] ANSI-Medicaid [id number] ANSI-Medicaid [id number] ANSI-Medicaid [id number] ANSI-Medicaid [id number] ANSI-Medicaid [id number] ANSI-Medicaid [id number] ANSI-Medicaid [id number] ANSI-Medicaid [id number] [facility] [id number] SP [id number] [facility] O [id number] S [id number] [facility] Maintenance Organization (HMO) [id number] Self [id number] UNAVAILABLE UNAVAILA BLE SELF PAY UNAVAILABLE UNAVAILA BLE MEDICAID [id number] [facility] OFFICE OF MENTAL HEALTH [id number] [facility] OFFICE OF MENTAL HEALTH [id number] S [id number] [facility] O [id number] S [id number] D [facility] S [id number] S [id number] BLUE CROSS [place] PLAN [id number] SP [id number] O BLUE [id number] SP [id number] O BLUE [id number] SP [id number] Problems, Conditions, and Diagnoses Code Display Name Description Problem Type Effective Dates Data Source(s) F31.9 Bipolar disorder, unspecified Unspecified Bipola r and Related Disorder Condition 12/26/2020 12:00:00 AM EST [facility] ([facility]) F43.12 Post-traumatic stress disorder, chronic Post-traumatic stress disorder, chronic Condition 12/26/2020 12:00:00 AM EST [facility] ([facility]) E78.2 Mixed hyperlipidemia Mixed hyperlipidemia Problem 08/19/2020 12:00:00 AM EDT [facility]CW[facility] ([facility]) Z71.3 Dietary counseling and surveillance Dietary coun seling and surveillance Diagnosis 09/27/2020 08:41:31 AM [facility] Z68.44 Body mass index (BMI) 60.0-69.9, adult B tono mass index (BMI) 60.0-69.9, adult Diagnosis 09/27/2020 08:41:31 AM [facility] E66.01 Morbid (severe) obesity due to excess ca lories Morbid (severe) obesity due to excess calories Diagnosis 09/27/2020 08:41:31 AM [facility] Surgeries/Procedures Procedure Description Date Indications Data Source(s) [facility] Telemed E/M Lvl 3--Est pt 12/26/2020 12:00:00 AM EST - 12/26/2020 12:00:00 AM EST [facility] ([facility]) Telemed A/O 30" 12/26/2020 12:00:00 AM EST [facility] ([facility]) [facility] Telemed E/M Lvl 3--Est pt 12/26/2020 12:00:[address] [facility] ([facility]) [id number]"Psychotherapy 12:00:00 AM EST - 12/25/2020 12:00:00 AM EST [facility] ([facility]) [id number]"Psychotherapy 12/24/2020 12:00:00 AM EST [facility] ([facility]) Extended Individual Psychotherapy - 45 min 12/03/2020 12:00:00 AM EST - 12/03/2020 12:00:00 AM EST [facility] ([facility]) Extended Individual Psychotherapy - 45 min 12:00:00 AM EST [facility] ([facility]) Extended Individual Psychotherapy - 45 min 11/25/2020 12:00:00 AM EST - 11/25/2020 12:00:00 AM EST [facility] ([facility]) Extended Individual Psychotherapy - 45 min 12:00:00 AM EST [facility] ([facility]) Extended Individual Psychotherapy - 45 min 11/19/2020 12:00:00 AM EST - 11/19/2020 12:00:00 AM EST [facility] ([facility]) Extended Individual Psychotherapy - 45 min 12:00:00 AM EST [facility] ([facility]) OFFICE OUTPATIENT VISIT 15 MINUTES 11/06 12:00:00 AM EST - 11/06/2020 12:00:00 AM EST [facility] ([facility]) Psychotherapy ADD ON - 30 Minutes 11/06/2020 12:00:00 AM EST [facility] ([facility]) OFFICE OUTPATIENT VISIT 15 MINUTES 11/06/2020 12:00:00 AM EST [facility] ([facility]) Extended Individual Psychotherapy - 45 min 11/05/2020 12:00:00 AM EST - 11/05/2020 12:00:00 AM EST [facility] ([facility]) Extended Individual Psychotherapy - 45 min 0 12:00:00 AM EST [facility] ([facility]) Extended Individual Psychotherapy - 45 min 10/22/2020 12:00:00 AM EST - 10/22/2020 12:00:00 AM EST [facility] ([facility]) Extended Individual Psychotherapy - 45 min 0 12:00:00 AM EST [facility] ([facility]) Extended Individual Psychotherapy - 45 min 09/25/2020 12:00:00 AM EST - 09/25/2020 12:00:00 AM EST [facility] ([facility]) Extended Individual Psychotherapy - 45 min 0 12:00:00 AM EST [facility] ([facility]) Extended Individual Psychotherapy - 45 min 09/10/2020 12:00:00 AM EDT - 09/10/2020 12:00:00 AM EDT [facility] ([facility]) Extended Individual Psychotherapy - 45 min 0 12:00:00 AM EDT [facility] ([facility]) MHC Telemed E/M Lvl 3--Est pt 08/27/2020 12:00:00 AM EDT - 08/27/2020 12:00:00 AM EDT [facility] ([facility]) Telemed A/O 30" 08/27/2020 12:00:00 AM EDT [facility] ([facility]) MHC Telemed E/M Lvl 3--Est pt 08/27/2020 12:00:00 AM E DT [facility] ([facility]) ECG ROUTINE ECG W/LEAST 12 LDS W/I&R 08/19/2020 12:00: 00 AM EDT eCW1 ([facility]) [id number]"Psychotherapy 0 12:00:00 AM EDT - 08/19/2020 12:00:00 AM EDT [facility] ([facility]) [id number]"Psychotherapy 08/16/2020 12:00:00 AM EDT [facility] ([facility]) [facility] Telemed E/M Lvl 3--Est pt 05/14/2020 12:00:00 AM EDT - 05/14/2020 12:00:00 AM EDT [facility] ([facility]) Telemed A/O 30" 05/14/2020 12:00:00 AM EDT [facility] ([facility]) MHC Telemed E/M Lvl 3--Est pt 05/14/2020 12:00:00 AM E DT [facility] ([facility]) TEMPMHCTelemed 20" psychotherapy 020 12:00:00 AM EDT - 02/28/2020 12:00:00 AM EDT [facility] ([facility]) TEMPMHCTelemed 20" psychotherapy 02/27/2020 12:00:00 A M EDT [facility] ([facility]) TEMPMHCTelemed 30" Psychotherapy 020 12:00:00 AM EDT - 02/13/2020 12:00:00 AM EDT [facility] ([facility]) TEMPMHCTelemed 30" Psychotherapy 02/13/2020 12:00:00 A M EDT [facility] ([facility]) TEMPMHCTelemed 30" Psychotherapy 020 12:00:00 AM EDT - 01/31/2020 12:00:00 AM EDT [facility] ([facility]) TEMPMHCTelemed 30" Psychotherapy 01/30/2020 12:00:00 A M EDT [facility] ([facility]) Extended Individual Psychotherapy - 45 min 01/16/2020 12:00:00 AM EST - 01/16/2020 12:00:00 AM EST [facility] ([facility]) Extended Individual Psychotherapy - 45 min 0 12:00:00 AM EST [facility] ([facility]) OFFICE OUTPATIENT VISIT 15 MINUTES 01/15 12:00:00 AM EST - 01/16/2020 12:00:00 AM EST [facility] ([facility]) OFFICE OUTPATIENT VISIT 15 MINUTES 01/16/2020 12:00:00 AM EST [facility] ([facility]) OFFICE OUTPATIENT VISIT 15 MINUTES 11/17 12:00:00 AM EST - 11/17/2019 12:00:00 AM EST [facility] ([facility]) OFFICE OUTPATIENT VISIT 15 MINUTES 11/17/2019 12:00:00 AM EST [facility] ([facility]) Brief Individual Psychotherapy - 30 min 11/16/2019 12:00:00 AM EST - 11/16/2019 12:00:00 AM EST [facility] ([facility]) Brief Individual Psychotherapy - 30 min 11/14/2019 12: 00:00 AM EST [facility] ([facility]) Results ID Date Data Source [id number] 09/27/2020 03:56:39 PM EST [facility] Name Value Range Interpretation Code Description Data Lisa e(s) Supporting Document(s) Progress Note [facility] GLBPHx6tRvCLXkVb41/PCGwoHFDek0OnLVkzXKj8CHpmRRJhR5MfZVM8rI1lGHZ0AJoMVmApYnMkUYTn [facility] [file] ICAgICAgICAgICAgICAgICAgICAgICAgICAgICAgICAgICAgICAgICAgICAgICAgICAgICAgICAgICAg ICAgICAgICAgICAgICAgICAgICAgICAgICAgICAgIC AgICAgICAgDQogICAgICAgICAgICAgICAgICAgICAgICAgICAgICAgICAgICAgICAgICAgICAgICAgIC AgICAgICAgICAgICAgICAgICAgICAgICAgICAgICAgICAgICAgICAgICAgICAgICAgDQogICAgICAgIC AgICAgICAgICAgICAgICAgICAgICAgICAgICAgICAg ICAgICAgICAgICAgICAgICAgICAgICAgICAgICAgICAgICAgICAgICAgICAgICAgICAgICAgICAgICAg DQogICAgICAgICAgICAgICAgICAgICAgICAgICAgICAgICAgICAgICAgICAgICAgICAgICAgICAgICAg ICAgICAgICAgICAgICAgICAgICAgICAgICAgICAgIC AgICAgICAgICAgDQogICAgICAgICAgICAgICAgICAgICAgICAgICAgICAgICAgICAgICAgICAgICAgIC AgICAgICAgICAgICAgICAgICAgICAgICAgICAgICAgICAgICAgICAgICAgICAgICAgICAgDQogICAgIC AgICAgICAgICAgICAgICAgICAgICAgICAgICAgICAg ICAgICAgICAgICAgICAgICAgICAgICAgICAgICAgICAgICAgICAgICAgICAgICAgICAgICAgICAgICAg ICAgDQogICAgICAgICAgICAgICAgICAgICAgICAgICAgICAgICAgICAgICAgICAgICAgICAgICAgICAg ICAgICAgICAgICAgICAgICAgICAgICAgICAgICAgIC AgICAgICAgICAgICAgDQogICAgICAgICAgICAgICAgICAgICAgICAgICAgICAgICAgICAgICAgICAgIC AgICAgICAgICAgICAgICAgICAgICAgICAgICAgICAgICAgICAgICAgICAgICAgICAgICAgICAgDQogIC AgICAgICAgICAgICAgICAgICAgICAgICAgICAgICAg ICAgICAgICAgICAgICAgICAgICAgICAgICAgICAgICAgICAgICAgICAgICAgICAgICAgICAgICAgICAg ICAgICAgDQogICAgICAgICAgICAgICAgICAgICAgICAgICAgICAgICAgICAgICAgICAgICAgICAgICAg ICAgICAgICAgICAgICAgICAgICAgICAgICAgICAgIC TeAJPmKMEwTRQxKMOaZSNyWUv9M9sbPFBjUNSsCY2qOYa3Of2+YArQDmMzIGJ3rwSktV2DQU1ra0PqYD gmHJRpv4FrQZf1MO6SKQLvGInlCH4LCShhve0VVLFbJBOndEXMi9uuKbTfOZJ9ZCCgRmzyWF3PNJXtP1 xuleNkOSRcERLGUZ9DYkRkS2BuaO72SKHSXu0+DQpl ugKoVazUZoYgBQCgw0PgKTz0SJ0TEMBkMgyjy9NyJqIdGKZTLNpyDW1SYRI6PANiSSOrKu0EMEMtV862 apVyBK7PPb9ZOfNrOJ7udr3QEhJaWCWyAouLUbt7SXwgFU9YoWDiBJoTlr2czbJgqeJAe6ChsuRgwOLE SWVkdCDfDFBPZAG5cB4kURFVEEAKBB7xCYBtKQCdFI ReXzYdDLDmDvrxUGFADGmAMpIkC3Dtp6IvJeJ1MFOdPaDnVGiyJUPmRmD3UW95rWumNX7PGWPtZMMgHY 84WYNkGNOwCd1YMi4ANcWcQY2emv7MXsNePEXrGlnSUlk4OVwjKH7MuXKzM9AtsKKuf5nKOkBdH2MNZU OzZLVxKx2OQQHdEhGwXQLqQFfrSZ0lJCQuCZUToUxu uzS4EA2JRC3msaGrIT9TUsXjBn2jAc3NZmNiN1QqH2XdMXDuGAUMEHsgAD5ETNcyXX3rBB0Bj2GAsZWf fS6abk0RSFJhDGFyWdunxj0NBekzP1S4kNwbKOOvXkIjBEHYNLcnEZ9YFUEeGEV5CJJmCFBtXLACCfQx G42bFS3IB1Rdh57tAmP0AAVgKsTeUAmqKW83qQndct PohCScfDzgKJ9SSg4+PYatooObZwyQBthrWXDKEyJsGcDZMzHjPKDmCSPvXJPtGjG2WoHhYw2KFCNuPS FrNCGkAzWaAASdWQXsLMmnYLVvCKDwNad0JOXbGTJcOI9VKzQhFPJaRmLwHzjqSKMkQJItcf2LNURwDZ LdHPQ3RqZoOZNuPKSgTNyuMLMyNBHtXAG4JLCaNRNb PV9QSjTbDVMlPMZoRslbAKKoJOHljs1TRDUuSMYzYVa6SuPmFMNbZJJcSXfqGYZeBSK6AZluJBFuVQAo IN7TBfWxCUMgXDQzIdRlMOCiQUVtkx0FZPPhKVXjNrVaKOBlGMFyPIUqAFgpREKcJJK7NCKvXJOsXBYx UY8USgMlTLEfUDE1XPTsXGMxEYOsvl3VURDoBGRpCG A4WYCuXBDtXSTlDHbkJITcLLV7NcqdTFNxNVFkXH5VKuBwMHJwOVn1IMDdNODlQIPdhy2PDTCfRQHeMN loBUYaHOJgHTGnRIdlTXIsRBL2RFt3LORvFMNfJQ3HIlFmFPCwXTn0DcPqUJFqBPImlq0PIVQlLKFsRI ZzVHOyNAQwSQXgTHdiUOFzXJOzWqzyFLMgKGTjSL4L BsKsDGYrPsQ3JKygYINeQZIjil3QPBOwEFSpAaKaMqUeZPJyZITtMJqhJJJjDOMySUb4NPKeFBUgYF8D IuCeAUQmKbRjLXEtPMBjEVLkfu9NuYPlxDheuk0GAZiYZf5LsDizHCE8MSeqWg5veLDgGAYsEXEEJc2M ltZeDNCkHDACTSenZQNiDPV2BOCvJGYmKPgiLMtdZE FnZWQ5KtRcBiyrHaQbMBPbBfY7KjBvFrF4OVGhXAYoDYA4ETMrFXjnT2XgH7SzEhF5RuY+XE7oDRm+Pg 5Az2TvmyL0qrArMKvlFdD3Xw7RLNFJP5SZVy== ID Date Data Source CHLAMYDIA & GC DNA AMPLIFICAT 09/05/2020 03:36:13 AM EDT eCW 1 ([facility]) Name Value Range Interpretation Code Description Data Lisa rce(s) Supporting Document(s) Chlamydia trachomatis rRNA [Presence] in Unspecified specimen by Probe and target amplification method NEGATIVE eCW1 ([facility]) ID Date Data Source PAP REQUEST FOR SERVICE 09/04/2020 02:57:17 AM EDT eCW1 ([facility]) Name Value Range Interpretation Code Description Data Lisa rce(s) Supporting Document(s) eCW1 ([facility]) ID Date Data Source LIPID PANEL (CARDIAC RISK) 08/23/2020 11:41:38 AM EDT eCW1 ( [facility]) Name Value Range Interpretation Code Description Data Lisa rce(s) Supporting Document(s) Cholesterol [Moles/volume] in Serum or Plasma 197 CHOLESTEROL LEVEL eCW1 ([facility]) Cholesterol in HDL [Moles/volume] in Serum or Plasma 40 HDL CHOLESTEROL eCW1 ([facility]) Triglyceride [Mass/volume] in Serum or Plasma by calculation 139 TRIGLYCERIDES LEVEL eCW1 ([facility]) 4.925 CHOLESTEROL RISK RATIO eCW1 ([facility]) Cholesterol in LDL [Mass/volume] in Serum or Plasma by calculation 129 LDL CHOLESTEROL eCW1 ([facility]) 157 NON-HDL-C eCW1 ([facility]) ID Date Data Source [id number] 08/23/2020 11:41:38 AM EDT eCW1 ([facility]) Name Value Range Interpretation Code Description Data Lisa rce(s) Supporting Document(s) Hemoglobin A1c/Hemoglobin.total in Blood 5.6 HEMOGLOBIN A1c eCW1 ([facility]) ID Date Data Source FREE T4 & TSH PANEL 08/23/2020 11:41:38 AM EDT eCW1 ([facility]) Name Value Range Interpretation Code Description Data Lisa rce(s) Supporting Document(s) 0.611 THYROID STIMULATING HORMONE eC W1 ([facility]) 1.35 FREE T4 eCW1 ([facility]) ID Date Data Source Comprehensive Metabolic Profile (CMP) 08/23/2020 11:41:38 AM EDT eCW1 ([facility]) Name Value Range Interpretation Code Description Data Lisa rce(s) Supporting Document(s) > 60.0 eCW1 ([facility]) 0.81 CREATININE FOR GFR eCW1 ([facility]) 76 GLUCOSE, FASTING eCW1 ([facility]) 10 BLOOD UREA NITROGEN eCW1 ([facility]) 5.1 POTASSIUM SERUM [facility] 107 CHLORIDE LEVEL eCW1 ([facility]) 141 SODIUM LEVEL eCW1 ([facility]) 29 CARBON DIOXIDE LEVEL eCW1 ([facility]) 14 AST/SGOT eCW1 ([facility]) 39 ALT/SGPT eCW1 ([facility]) 94 ALKALINE PHOSPHATASE eCW1 ([facility]) 9.1 CALCIUM LEVEL eCW1 ([facility]) 0.4 BILIRUBIN,TOTAL [facility]CW[facility] 3.5 ALBUMIN eCW1 ([facility]) 7.0 TOTAL PROTEIN eCW1 ([facility]) 1.0 ALBUMIN/GLOBULIN RATIO eCW1 ([facility]) Procedure Social History Code Duration Value Status Description Data Source(s ) Smoking 12/26/2020 12:00:00 AM EST Unknown if ever smoked comp leted Unknown if ever smoked [facility] ([facility]) Smoking 12/25/2020 12:00:00 AM EST Unknown if ever smoked comp leted Unknown if ever smoked [facility] ([facility]) Smoking 12/03/2020 12:00:00 AM EST Unknown if ever smoked comp leted Unknown if ever smoked [facility] ([facility]) Smoking 11/26/2020 12:00:00 AM EST Never Smoker completed Never S moker eCW1 ([facility]) Smoking 11/25/2020 12:00:00 AM EST Unknown if ever smoked comp leted Unknown if ever smoked [facility] ([facility]) Smoking 11/19/2020 12:00:00 AM EST Unknown if ever smoked comp leted Unknown if ever smoked [facility] ([facility]) Smoking 11/06/2020 12:00:00 AM EST Unknown if ever smoked comp leted Unknown if ever smoked [facility] ([facility]) Smoking 11/05/2020 12:00:00 AM EST Unknown if ever smoked comp leted Unknown if ever smoked [facility] ([facility]) Smoking 10/22/2020 12:00:00 AM EST Unknown if ever smoked comp leted Unknown if ever smoked [facility] ([facility]) Smoking 09/25/2020 12:00:00 AM EST Unknown if ever smoked comp leted Unknown if ever smoked [facility] ([facility]) Smoking 09/10/2020 12:00:00 AM EDT Unknown if ever smoked comp leted Unknown if ever smoked [facility] ([facility]) Alcohol intake 09/06/2020 12:00:00 AM EDT Lifetime non-drinker (finding) completed Lifetime non-drinker (finding) [facility] Tobacco use and exposure 09/06/2020 12:00:00 AM EDT Never used co mpleted Never used [facility] Smoking 09/06/2020 12:00:00 AM EDT Never smoker completed Never s [facility] Smoking 08/28/2020 12:00:00 AM EDT Never Smoker completed Never S moker eCW1 ([facility]) Smoking 08/28/2020 12:00:00 AM EDT Never Smoker completed Never S moker eCW1 ([facility]) Smoking 08/28/2020 12:00:00 AM EDT Never Smoker completed Never S moker eCW1 ([facility]) Smoking 08/28/2020 12:00:00 AM EDT Never Smoker completed Never S moker eCW1 ([facility]) Smoking 08/28/2020 12:00:00 AM EDT Never Smoker completed Never S moker eCW1 ([facility]) Smoking 08/27/2020 12:00:00 AM EDT Unknown if ever smoked comp leted Unknown if ever smoked [facility] ([facility]) Smoking 08/19/2020 12:00:00 AM EDT Unknown if ever smoked comp leted Unknown if ever smoked [facility] ([facility]) Smoking 05/14/2020 12:00:00 AM EDT Unknown if ever smoked comp leted Unknown if ever smoked [facility] ([facility]) Smoking 02/28/2020 12:00:00 AM EDT Unknown if ever smoked comp leted Unknown if ever smoked [facility] ([facility]) Smoking 02/13/2020 12:00:00 AM EDT Unknown if ever smoked comp leted Unknown if ever smoked [facility] ([facility]) Smoking 01/31/2020 12:00:00 AM EDT Unknown if ever smoked comp leted Unknown if ever smoked [facility] ([facility]) Smoking 01/16/2020 12:00:00 AM EST Unknown if ever smoked comp leted Unknown if ever smoked [facility] ([facility]) Smoking 11/17/2019 12:00:00 AM EST Unknown if ever smoked comp leted Unknown if ever smoked [facility] ([facility]) Smoking 11/16/2019 12:00:00 AM EST Unknown if ever smoked comp leted Unknown if ever smoked [facility] ([facility]) Vital Signs ID Date Data Source UNK Name Value Range Interpretation Code Description Data Source(s) Diastolic blood pressure 0 mm[Hg] Normal (applies to non-numeric results) 0 mm[Hg] [facility] ([facility]) Systolic blood pressure 0 mm[Hg] Normal (applies t o non-numeric results) 0 mm[Hg] [facility] ([facility]) Body mass index (BMI) [Ratio] 0.00 kg/m2 No rmal (applies to non-numeric results) 0.00 kg/m2 [facility] ([facility]) Body weight Measured 0.00 lbs Normal (applies to n on-numeric results) 0.00 lbs [facility] ([facility]) Body height 0.00 in Normal (applies to non-numeric resu lts) 0.00 in [facility] ([facility]) Diastolic blood pressure 76 mm[Hg] 76 mm[Hg] eCW1 ([facility]) Systolic blood pressure 124 mm[Hg] 124 mm[Hg] e CW1 ([facility]) Body temperature 97 [degF] 97 [degF] eCW1 ([facility]) Respiratory rate 18 /min 18 /min eCW1 ([facility]) Heart rate 111 /min 111 /min [facility] Body mass index (BMI) [Ratio] 64.12 kg/m2 64.12 kg/m2 eCW1 ([facility]) Body height 63 [in_i] 63 [in_i] eCW1 ([facility]) Body weight 362 [lb_av] 362 [lb_av] eCW1 ([facility]) Diastolic blood pressure 0 mm[Hg] Normal (applies to non-numeric results) 0 mm[Hg] [facility] ([facility]) Systolic blood pressure 0 mm[Hg] Normal (applies t o non-numeric results) 0 mm[Hg] [facility] ([facility]) Body mass index (BMI) [Ratio] 0.00 kg/m2 No rmal (applies to non-numeric results) 0.00 kg/m2 [facility] ([facility]) Body weight Measured 0.00 lbs Normal (applies to n on-numeric results) 0.00 lbs [facility] ([facility]) Body height 0.00 in Normal (applies to non-numeric resu lts) 0.00 in [facility] ([facility]) Diastolic blood pressure 76 mm[Hg] 76 mm[Hg] eCW1 ([facility]) Systolic blood pressure 126 mm[Hg] 126 mm[Hg] e CW1 ([facility]) Body mass index (BMI) [Ratio] 65.54 kg/m2 65.54 kg/m2 W1 ([facility]) Body height 63 [in_i] 63 [in_i] eCW1 ([facility]) Body weight 370 [lb_av] 370 [lb_av] eCW1 ([facility]) Diastolic blood pressure 0 mm[Hg] Normal (applies to non-numeric results) 0 mm[Hg] [facility] ([facility]) Systolic blood pressure 0 mm[Hg] Normal (applies t o non-numeric results) 0 mm[Hg] [facility] ([facility]) Body mass index (BMI) [Ratio] 0.00 kg/m2 No rmal (applies to non-numeric results) 0.00 kg/m2 [facility] ([facility]) Body weight Measured 0.00 lbs Normal (applies to n on-numeric results) 0.00 lbs [facility] ([facility]) Body height 0.00 in Normal (applies to non-numeric resu lts) 0.00 in [facility] ([facility]) Diastolic blood pressure 68 mm[Hg] 68 mm[Hg] eCW1 ([facility]) Systolic blood pressure 118 mm[Hg] 118 mm[Hg] e CW1 ([facility]) Body temperature 97.5 [degF] 97.5 [degF] eCW1 ( [facility]) Respiratory rate 18 /min 18 /min eCW1 ([facility]) Heart rate 113 /min 113 /min eCW1 [facility] Body mass index (BMI) [Ratio] 65.50 kg/m2 65.50 kg/m2 eCW1 ([facility]) Body height 63 [in_i] 63 [in_i] eCW1 ([facility]) Body weight 369.8 [lb_av] 369.8 [lb_av] eCW1 ([facility]) Diastolic blood pressure 0 mm[Hg] Normal (applies to non-numeric results) 0 mm[Hg] [facility] ([facility]) Systolic blood pressure 0 mm[Hg] Normal (applies t o non-numeric results) 0 mm[Hg] [facility] ([facility]) Body mass index (BMI) [Ratio] 0.00 kg/m2 No rmal (applies to non-numeric results) 0.00 kg/m2 [facility] ([facility]) Body weight Measured 0.00 lbs Normal (applies to n on-numeric results) 0.00 lbs [facility] ([facility]) Body height 0.00 in Normal (applies to non-numeric resu lts) 0.00 in [facility] ([facility]) Diastolic blood pressure 0 mm[Hg] Normal (applies to non-numeric results) 0 mm[Hg] [facility] ([facility]) Systolic blood pressure 0 mm[Hg] Normal (applies t o non-numeric results) 0 mm[Hg] [facility] ([facility]) Body mass index (BMI) [Ratio] 0.00 kg/m2 No rmal (applies to non-numeric results) 0.00 kg/m2 [facility] ([facility]) Body weight Measured 0.00 lbs Normal (applies to n on-numeric results) 0.00 lbs [facility] ([facility]) Body height 0.00 in Normal (applies to non-numeric resu lts) 0.00 in [facility] ([facility]) Diastolic blood pressure 0 mm[Hg] Normal (applies to non-numeric results) 0 mm[Hg] [facility] ([facility]) Systolic blood pressure 0 mm[Hg] Normal (applies t o non-numeric results) 0 mm[Hg] [facility] ([facility]) Body mass index (BMI) [Ratio] 0.00 kg/m2 No rmal (applies to non-numeric results) 0.00 kg/m2 [facility] ([facility]) Body weight Measured 0.00 lbs Normal (applies to n on-numeric results) 0.00 lbs [facility] ([facility]) Body height 0.00 in Normal (applies to non-numeric resu lts) 0.00 in [facility] ([facility]) Patient Treatment Plan of Care Planned Activity Planned Date Details Description Data Source (s) Ortho Tri-Cyclen Lo 0.18/0.215/0.25 MG-25 MCG 08/28/2020 12:00:00 A M EDT eCW1 ([facility]) Ortho Tri-Cyclen Lo 0.18/0.215/0.25 MG-25 MCG 08/28/2020 12:00:00 A M EDT eCW1 ([facility]) Ortho Tri-Cyclen Lo 0.18/0.215/0.25 MG-25 MCG 08/28/2020 12:00:00 A M EDT eCW1 ([facility]) Ortho Tri-Cyclen Lo 0.18/0.215/0.25 MG-25 MCG 08/28/2020 12:00:00 A M EDT eCW1 ([facility]) Ortho Tri-Cyclen Lo 0.18/0.215/0.25 MG-25 MCG 08/28/2020 12:00:00 A M EDT eCW1 ([facility]) Hydrochlorothiazide 12.5 MG Oral Tablet 08/19/2020 12:00:00 AM EDT eCW1 ([facility]) Hydrochlorothiazide 12.5 MG Oral Tablet 08/19/2020 12:00:00 AM EDT eCW1 ([facility]) Hydrochlorothiazide 12.5 MG Oral Tablet 08/19/2020 12:00:00 AM EDT eCW1 ([facility]) Hydrochlorothiazide 12.5 MG Oral Tablet 08/19/2020 12:00:00 AM EDT eCW1 ([facility])
[2020-12-31] MEDS ORDERED: OLANZapine ORAL DISINTEGRATING TAB 5MG PO PRN (14:45)
[2020-12-31 17:48] VITALS: BP 139/85
[2020-12-31] MEDS ORDERED: NYSTATIN 100,000 UNITS/GM TOPICAL PWD 15 GM TOP PRN (18:15)
[2020-12-31] MEDS: PRAZOSIN 1 MG CAP PO SCH (21:57)
[2020-12-31] MEDS: traZODone 50 MG TAB PO SCH (21:58)
[2021-01-01] MEDS: LEVOTHYROXINE 50MCG TABLET (0.05MG) PO SCH (06:09)
[2021-01-01 06:24] VITALS: BP 109/59
[2021-01-01] MEDS ORDERED: buPROPion **XL** TABLET 150MG (WELLBUTRIN XL) PO SCH ×2 (09:00)
[2021-01-01] MEDS: buPROPion **XL** TABLET 150MG (WELLBUTRIN XL) PO SCH (09:18)
[2021-01-01] MEDS: hydroCHLOROthiazide 12.5 MG CAPSULE PO SCH (09:19)
[2021-01-01] MEDS: ARIPiprazole 10 MG TAB PO SCH (09:19)
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
[2021-01-01 16:04] VITALS: BP 121/65
--- NOTE | 2021-01-01 17:07 | HPEPDOC ---
General Date of Admission Dec 31, 2020 at 14:03 Date of Service: Jan 01, 2021 Chief Complaint The patient is a 20-year-old female admitted with a reason for visit of Unspecified Depreesive Disorder. Source: Patient Exam Limitations: No limitations History of Present Illness Patient is 20 years old female with past mental history of hypothyroidism, depression, multiple suicidal attempts in the past. Patient stated that she feels depressed and she wanted to stab herself in the neck. During monitoring patient denied fever, chills, nausea, vomiting, chest pain, palpitations diarrhea or dysuria. Home Medications Scheduled Aripiprazole (Aripiprazole) 10 Mg Tablet, 10 MG PO DAILY, (Reported) Bupropion HCl (Bupropion Xl) 300 Mg Tab.er.24h, 300 MG PO DAILY, (Reported) Bupropion Hcl (Bupropion Xl) 150 Mg Tab.er.24h, 150 MG PO DAILY, (Reported) Hydrochlorothiazide (Hydrochlorothiazide) 12.5 Mg Tablet, 12.5 MG PO DAILY, (Reported) Levothyroxine Sodium (Levothyroxine Sodium) 50 Mcg Tablet, 50 MCG PO QAM, (Reported) Prazosin Hcl (Prazosin HCl) 5 Mg Capsule, 10 MG PO QHS, (Reported) Trazodone HCl (Trazodone HCl) 50 Mg Tablet, 50 MG PO QHS, (Reported) Scheduled PRN Nystatin (Nystatin Powder) 15 Gm Powder, 1 APLCT TOP BID PRN for RASH/ITCHING, (Reported) APPLY TO ABDOMEN/GROIN PRN Allergies Coded Allergies: No Known Allergies (Verified , 10/06/20) Past Medical History Medical History Hypertension, hyperlipidemia, hx of bipolar d/o, ADHD, PTSD, & borderline personality , obesity Family History Father has diabetes Social History * Smoker: Denies Alcohol: Denies Drugs: denies A-FIB/CHADSVASC A-FIB History Current/History of A-Fib/PAF?: No Current PO Anticoag Therapy: No Review of Systems Constitutional: Denies: Chills Eyes: Denies: Pain ENT: Denies: Head Aches Skin: Denies: Rash, Lesions Pulmonary: Denies: Dyspnea Cardiovascular: Denies: Chest Pain Gastrointestinal: Denies: Nausea Genitourinary: Denies: Dysuria Hematologic: Denies: Bruising Endocrine: Denies: Polydipsia Musculoskeletal: Denies: Neck Pain Neurological: Denies: Weakness Psych: Reports: Anxiety, Depression Physical Examination General Exam: Positive: Alert Eye Exam: Positive: PERRLA ENT Exam: Positive: Atraumatic Neck Exam: Positive: Supple; Negative: JVD Chest Exam: Positive: Clear to auscultation Heart Exam: Positive: Rate Normal Telemetry: Positive: No significant arrhythmia Abdomen Exam: Positive: Normal bowel sounds Extremity Exam: Negative: Clubbing Skin Exam: Positive: Nl turgor and temperature Neuro Exam: Positive: Strength at 5/5 X4 ext Psych Exam: Positive: Anxiety Vital Signs Vital Signs Date Time Temp Pulse Resp B/P (MAP) Pulse Ox O2 Delivery O2 Flow Rate FiO2 01/01/21 16:04 97.9 96 16 121/65 (83) 100 Room Air Assessment/Plan Patient is 20 years old female with past mental history of hypothyroidism, depression, multiple suicidal attempts in the past. Patient stated that she feels depressed and she wanted to stab herself in the neck. During monitoring patient denied fever, chills, nausea, vomiting, chest pain, palpitations diarrhea or dysuria. Problems (1) Hypertension Status: Chronic Problem Text: Continue hydrochlorothiazide (2) Depression with suicidal ideation Status: Acute Problem Text: Deferred to psych team (3) Hypothyroidism Status: Chronic Problem Text: Continue levothyroxine Plan / VTE VTE Prophylaxis Ordered?: No VTE Exclusion Mechanical Proph: Low Risk for VTE ACOSTA SANDOVAL DO Jan 01, 2021 17:08
[2021-01-01] MEDS: traZODone 50 MG TAB PO SCH (21:36)
[2021-01-01 21:38] VITALS: BP 133/65
[2021-01-01] MEDS: PRAZOSIN 1 MG CAP PO SCH (21:38)
[2021-01-02] MEDS: LEVOTHYROXINE 50MCG TABLET (0.05MG) PO SCH (06:25)
[2021-01-02 06:37] VITALS: BP 105/50
[2021-01-02] MEDS: ARIPiprazole 10 MG TAB PO SCH (09:50)
[2021-01-02] MEDS: hydroCHLOROthiazide 12.5 MG CAPSULE PO SCH (09:51)
[2021-01-02] MEDS: buPROPion **XL** TABLET 150MG (WELLBUTRIN XL) PO SCH (09:51)
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
== END 2021-01-02 12:45 | disposition home or self-care (01) | DRG 755 ==
LOC: M ED 01:02 → M ED INP 12-31 14:03 → M PSY 12-31 16:51
PROVIDERS: ADMIT Psychiatry & Neurology Psychiatry; ATTEND Psychiatry & Neurology Psychiatry
DX: F43.10 Post-traumatic stress disorder, unspecified (principal); F41.9 Anxiety disorder, unspecified; R45.851 Suicidal ideations; E78.5 Hyperlipidemia, unspecified; I10 Essential (primary) hypertension; E66.9 Obesity, unspecified; E03.9 Hypothyroidism, unspecified; Z91.5 Personal history of self-harm; Z62.810 Personal history of physical and sexual abuse in childhood; Z79.899 Other long term (current) drug therapy

== ENCOUNTER 2021-01-07 01:58 | Inpatient (IN) | payer MEDICAID, OTHER ==
[~2021-01-07] VITALS: Ht 160 cm; Wt 155.9 kg
[~2021-01-07 01:58] MED LIST changes: +BUPR150T12 PO; -BUPR150T4 PO; +TRAZ-186 PO
--- OUTSIDE RECORDS SUMMARY | 2021-01-07 02:04 | CCD ---
Author Author Meghan Hernandes Organization Unknown Address [address] [address] Phone Care Team Providers Care [employer] Mechanical Engineer Name Role Phone Eugenio Hernandes PCP Allergies, Adverse Reactions, Alerts Concept Allergy Name Reaction Severity Onset Date Status Documentation Date Phone Number Npid Taxonomy Code Taxonomy Desc Author Last Name Author Fi rst Name Concept Type 011419 Ambien (zolpidem) Too sedated in the morning 03/17 Active 03/17/2019 [id number] Licensed Practical Nurse Rory Bae RXNORM Problem [...] Name Taxonomy Code Taxonomy Desc Phone Number [id number] bupropion HCl by mouth F12625 08/15/2020 once a day 150 mg tablet extended release 24 hr 14007 [id number] Saumya brooks [id number] Psychiatric/Mental Health [phone] prazosin by mouth O42292 11/06/2020 at bedtime 5 mg capsul e 60443 127476 [id number] Maricruz Vizcarra [id number] Nurse Practitioner [phone] bupropion HCl by mouth I22396 11/06/2020 every morning 300 mg tablet extended release 24 hr 14195 268005 [id number] Saumya brooks [id number] Psychiatric/Mental Health [id number] aripiprazole by mouth G03229 11/06/2020 once a day 10 mg t ablet 70644 239936 [id number] Saumya Don [id number] Psychiatric/Mental Health [phone] 432630 trazodone by mouth Z60697 11/06/2020 at bedtime 50 mg t ablet as needed 57596 [id number] Saumya Don [id number] [facility]iat [place] [id number] Social History Social History Element Description Concept Effective Date Smoking Status Unknown if ever smoked [id number] Immunizations No Data in Section Vital Signs No Data in Section Procedures Date Concept Id Description Targeted Site Concept Targeted Site Concept Type 12/31/2020 76103 Extended Individual Psychotherapy - 45 min CPT Patient has no history of implantable de vices Encounters Encounter Start Date End Date Encounter Type Description Diagnosis Di agnosis Desc Location Author First Name Author Last Name Npid Taxonomy Cod e Taxonomy Desc Phone Number Location Addr1 Location Addr2 Location City Location Sta te Location [facility] [id number] 12/31/2020 12/31/2020 91016 Extended Individual Psych otherapy - 45 min F43.12 Post-traumatic stress disorder, chronic [facility] [phone] [employer] [phone] [address] [address] Plan of Treatment No Data in Section Lab Results No Data in Section Instructions No Data in Section Insurance Providers Insurance Id Policy Effective Date Policy Thru Date Company Mayra guerrero [id number] 2019 [employer] Man[employer] Teresa barnes
--- OUTSIDE RECORDS SUMMARY | 2021-01-07 02:05 | CCD ---
Author Author [facility] Organization [facility] Address Unknown Phone Unavailable Care Team Providers Care Gastroenterology Nurse Practitioner Name Role Phone Ahmet Don PMH-COMPUTER OPERATIONS MANAGER Unavailable Unavailable Ahmet Don PMH-COMPUTER OPERATIONS MANAGER Unavailable Unavailable Ahmet Don PMH-COMPUTER OPERATIONS MANAGER Unavailable Unavailable Ahmet Don PMH-COMPUTER OPERATIONS MANAGER Unavailable Unavailable Ahmet Don PMH-COMPUTER OPERATIONS MANAGER Unavailable Unavailable Ahmet Don PMH-COMPUTER OPERATIONS MANAGER Unavailable Unavailable Elizabeth MORRISON Unavailable Unavailable Eugenio [...] is protected by Article 27-F of the [facility] Public Health law. If you continue you may have access to information: Regarding HIV / AIDS; Provided by facilities licensed or operated by the [facility] Office of Mental Health; or Provided by the [facility] Office for People With Developmental Disabilities. If such information is present, then the following [facility] mandated warning applies: This information [...] law may result in a fine or mcfp sentence or both. A general authorization for the release of medical or other information is NOT sufficient authorization for further disc losure. Allergies and Adverse Reactions Type Description Substance Reaction Status Data Source(s ) Propensity to adverse reactions to substance Ambien (zolpide m) Zolpidem tartrate 10 MG Oral Tablet [Ambien] Active [facility]) Drug Class NO KNOWN ALLERGIES NO KNOWN ALLERGIES [facility] Family History Family Member Name Family Member Gender Family Member Status Date o f Status Description Data Source(s) Unknown Unknown Problem [facility] ([facility] father Encounters Encounter Providers Location Date Indications Data Source(s ) Extended Individual Psychotherapy - 45 min Attender: Anthony yarbrough [facility] 12/31/2020 01:00:00 AM EST - 12/31/2020 01:00:00 AM EST [facility] ([facility]) Attender: Eugenio Hernandes 12/31/2020 12:00:00 AM EST [facility] ([facility]) [facility] 12/26/2020 02:00:00 AM EST - 12/26/2020 02:00:00 AM EST [facility] ([facility]) [facility]: [facility]/26/2020 12: 00:00 AM EST [facility] ([facility]) Attender: Eugenio Hernandes 12/25/2020 12:00:00 AM EST [facility] ([facility]) [id number]"Psychotherapy Attender: Eugenio Hernandes [facility] 12/24/2020 02:00:00 AM EST - 12/24/2020 02:00:00 AM EST [facility] ([facility]) Attender: Eugenio Hernandes 12/03/2020 12:00:00 AM EST [facility] ([facility]) Extended Individual Psychotherapy - 45 min Attender: Anthony yarbrough [facility] 12/02/2020 03:00:00 AM EST - 12/02/2020 03:00:00 AM EST [facility] ([facility]) Outpatient [address] [facility] [address] [facility] [address] 11/26/2020 12:00:00 AM EST eCW1 ([facility]) Extended Individual Psychotherapy - 45 min Attender: Anthony yarbrough [facility] 11/25/2020 03:00:00 AM EST - 11/25/2020 03:00:00 AM EST [facility] ([facility]) Attender: Eugenio Hernandes 11/25/2020 12:00:00 AM EST [facility] ([facility]) Attender: Eugenio Hernandes 11/19/2020 12:00:00 AM EST [facility] ([facility]) Extended Individual Psychotherapy - 45 min Attender: Anthony yarbrough [facility] 11/18/2020 01:00:00 AM EST - 11/18/2020 01:00:00 AM EST [facility] ([facility]) [facility]patient [facility] 11/06/2020 01:30:00 AM EST - 11/06/2020 01:30:00 AM EST [facility] ([facility]) Attender: Saumya COOPERGALO 11/06/2020 12: 00:00 AM EST [facility] ([facility]) Attender: Eugenio Hernandes 11/05/2020 12:00:00 AM EST [facility] ([facility]) Extended Individual Psychotherapy - 45 min Attender: Anthony yarbrough [facility] 11/04/2020 03:00:00 AM EST - 11/04/2020 03:00:00 AM EST [facility] ([facility]) Unknown [address] [address] 11/01/2020 12:00:00 AM EST eCW1 ([facility]) Attender: Eugenio Hernandes 10/22/2020 12:00:00 AM EST [facility] ([facility]) Extended Individual Psychotherapy - 45 min Attender: Anthony yarbrough [facility] 10/21/2020 02:00:00 AM EST - 10/21/2020 02:00:00 AM EST [facility] ([facility]) Outpatient Attender: Masha Peñaloza 10/08/2020 12:00:00 AM [facility] [place] [address] [facility] [place] [address] 10/04/2020 12:00:00 AM EST eCW1 ([facility]) Outpatient Attender: CHARLIE MORRISON [id number] 09/27/2020 12:00 :00 AM EST Morbid (severe) obesity due to excess calories [facility] Morbid (severe) obesity due to excess ca lories Outpatient 09/26/2020 12:00:00 AM EST [facility] Attender: Eugenio Hernandes 09/25/2020 12:00:00 AM EST [facility] ([facility]) Extended Individual Psychotherapy - 45 min Attender: Anthony yarbrough [facility] 09/24/2020 01:00:00 AM EST - 09/24/2020 01:00:00 AM EST [facility] ([facility]) Unknown [address] [facility] [address] [facility] [address] 09/11/2020 12:00:00 AM EDT eCW1 ([facility]) Extended Individual Psychotherapy - 45 min Attender: Anthony yarbrough [facility] 09/10/2020 02:00:00 AM EDT - 09/10/2020 02:00:00 AM EDT [facility] ([facility]) Attender: Eugenio Hernandes 09/10/2020 12:00:00 AM EDT [facility] ([facility]) Outpatient [address] [facility] [address] 08/28/2020 12:00:00 AM EDT eCW1 ([facility]) Outpatient Attender: Saumya Don PM-COMPUTER OPERATIONS MANAGER [facility] 08/27/2020 02:30:00 AM EDT - 08/27/2020 02:30:00 AM EDT [facility] ([facility]) Attender: Saumya VELÁSQUEZ-COMPUTER OPERATIONS MANAGER 08/27/2020 12: 00:00 AM EDT [facility] ([facility]) Outpatient [address] [facility] [address] [facility] [address] 08/19/2020 12:00:00 AM EDT eCW1 ([facility]) Attender: Eugenio Hernandes 08/19/2020 12:00:00 AM EDT [facility] ([facility]) [id number]"Psychotherapy Attender: Eugenio Hernandes [facility] 08/16/2020 02:00:00 AM EDT - 08/16/2020 02:00:00 AM EDT [facility] ([facility]) Outpatient 08/09/2020 12:00:00 AM [facility] Outpatient Attender: Saumya Don [facility]-COMPUTER OPERATIONS MANAGER [facility] 05/14/2020 03:30:00 AM EDT - 05/14/2020 03:30:00 AM EDT [facility] ([facility]) [facility]: [facility]/14/2020 12: 00:00 AM EDT [facility] ([facility]) Outpatient Attender: Graciela MARCUS 04/23/2020 07:31:08 PM ED [place] [address] [address] 04/09/2020 12:00:00 AM EDT eCW1 ([facility] [address] [place] [address] 02/29/2020 12:00:00 AM EDT [facility]CW1 ([facility]) Attender: Trung Holguin 02/28/2020 12:00:0 0 AM EDT [facility] ([facility]) TEMPMHCTelemed 20" psychotherapy Attender: Trung Bergeron [facility] 02/27/2020 03:00:00 AM EDT - 02/27/2020 03:00:00 AM EDT [facility] ([facility]) TEMPMHCTelemed 30" Psychotherapy Attender: Trung Bergeron [facility] 02/13/2020 03:00:00 AM EDT - 02/13/2020 03:00:00 AM EDT [facility] ([facility]) Attender: Trung Holguin 02/13/2020 12:00:0 0 AM EDT [facility] ([facility] [address] [address] 02/06/2020 12:00:00 AM EDT eCW1 ([facility]) Attender: Trung Holguin 01/31/2020 12:00:0 0 AM EDT [facility] ([facility]) TEMPMHCTelemed 30" Psychotherapy Attender: Trung Menjivarchidi jabier [facility] 01/30/2020 04:15:00 AM EDT - 01/30/2020 04:15:00 AM EDT [facility] ([facility]) [facility] [address] [address] 01/29/2020 12:00:00 AM EDT eCW1 ([facility]) [facility] [address] [address] 01/19/2020 12:00:00 AM EST eCW1 ([facility]) Outpatient Attender: Saumya COOPER-COMPUTER OPERATIONS MANAGER [facility] 01/16/2020 11:30:00 AM EST - 01/16/2020 11:30:00 AM EST [facility] ([facility]) Extended Individual Psychotherapy - 45 min Attender: Jonathon Gilliampérez [facility] 01/16/2020 04:00:00 AM EST - 01/16/2020 04:00:00 AM EST [facility] ([facility]) Attender: Trung Holguin 01/16/2020 12:00:0 0 AM EST [facility] ([facility]) Attender: Saumya COOPERH-COMPUTER OPERATIONS MANAGER 01/16/2020 12: 00:00 AM EST [facility] ([facility]) [facility] [address] [place] [address] 01/16/2020 12:00:00 AM EST eCW1 ([facility]) [facility] [address] [place] [address] 12/19/2019 12:00:00 AM EST eCW1 (Pending sale to [facility]) [facility] [address] [place] [address] 12/19/2019 12:00:00 AM EST eCW1 ([facility]) [facility] [address] [facility] [address] 12/05/2019 12:00:00 AM EST eCW1 ([facility]) [facility] [address] [place] [address], [place] [address] 12/05/2019 12:00:00 AM EST eCW1 ([facility]) [address], [facility] [address] 11/30/2019 12:00:00 AM EST eCW1 ([facility]) Outpatient Attender: Saumya Don [facility]-COMPUTER OPERATIONS MANAGER [facility] 11/17/2019 02:00:00 AM EST - 11/17/2019 02:00:00 AM EST [facility] ([facility]) Attender: Saumya VELÁSQUEZ-JUDITH 11/17/2019 12: 00:00 AM EST [facility] ([facility]) Attender: Trung Holguin 11/16/2019 12:00:0 0 AM EST [facility] ([facility]) Brief Individual Psychotherapy - 30 min Attender: Trung ortez [facility] 11/14/2019 03:00:00 AM EST - 11/14/2019 03:00:00 AM EST [facility] ([facility]) Functional Status Medications Medication Brand Name Start Date Product Form Dose Route Admi nistrative Instructions Pharmacy Instructions Status Indications Reaction Description Data Source(s) 10 mg 01/03/2021 12:00:00 AM EST tablet 30 TAKE ONE TABLET BY MOUTH EVERY DAY TAKE ONE TABLET BY MOUTH EVERY DAY SOLD: 01/04/2021 [facility] 50 mg 12/28/2020 12:00:00 AM EST tablet [...] EVERY DAY AT BE DTIME NEEDED SOLD: 12/05/2020 [facility] 24 HR Bupropion Hydrochloride 300 MG Extended Release Oral T ablet bupropion HCl 11/06/2020 12:00:00 AM EST 300 mg by mouth completed [id number] bupropion HCl by mouth [id number] 11/06/2020 every morning 300 mg tablet extended release 24 hr 11026 [id number] Saumya Don [id number] P sychiatric/Mental Health [facility] ([facility]) Trazodone Hydrochloride 50 MG Oral Tablet trazodone 2019 12:00:00 AM EST 50 mg by mouth completed 522882 trazodone by mouth C382 88 11/06/2020 at bedtime 50 mg tablet as needed 41191 089549 [id number] Massimo Don [id number] Psychiatric/Mental Health [facility] ([facility]) 10 mg 11/06/2020 12:00:00 AM EST tablet 30 TAKE ONE TABLET BY MOUTH EVERY DAY TAKE ONE TABLET BY MOUTH EVERY DAY SOLD: 12/09/2020 [facility] Trazodone Hydrochloride 50 MG Oral Tablet trazodone 2019 12:00:00 AM EST 50 mg by mouth completed 942256 trazodone by mouth C382 88 11/06/2020 at bedtime 50 mg tablet as needed 98082 882100 [id number] Massimo monsivaispavan Arian [id number] Psychiatric/Mental Health [facility] ([facility]) 24 HR Bupropion Hydrochloride 300 MG Extended Release Oral T ablet BUPROPION HCL 11/06/2020 12:00:00 AM EST tablet extended release 24 hr 30 TAKE ONE TABLET BY MOUTH EVERY MORNING TAKE ONE TABLET BY MOUTH EVERY MORNING SOLD: 12/14/2020 [facility] aripiprazole 10 MG Oral Tablet aripiprazole 11/06/2020 12:00:00 AM ES T 10 mg by mouth completed 016498 aripiprazole by mouth [id number] 1 01/07/2020 once a day 10 mg tablet 58269 114934 [id number] Saumya brooks [id number] Psychiatric/Mental Health [facility] ([facility]) 50 mg 11/06/2020 12:00:00 AM EST tablet 30 TAKE ONE TABLET BY MOUTH EVERY DAY AT BEDTIME NEEDED TAKE ONE TABLET BY MOUTH EVERY DAY AT [facility] NEEDED SOLD: 11/07/2020 [facility] aripiprazole 10 MG Oral Tablet aripiprazole 11/06/2020 12:00:00 AM ES T 10 mg by mouth completed 644134 aripiprazole by mouth [id number] 1 01/07/2020 once a day 10 mg tablet 02466 310414 [id number] Saumya brooks [id number] Psychiatric/Mental Health [facility] ([facility]) 10 mg 11/06/2020 12:00:00 AM EST tablet 30 TAKE ONE TABLET BY MOUTH EVERY DAY TAKE ONE TABLET BY MOUTH EVERY DAY SOLD: 11/07/2020 [facility] Prazosin 5 MG Oral Capsule prazosin 11/06/2020 12:00:00 AM EST 5 mg by mouth completed 535070 prazosin by mouth [id number] 11/06/2020 at bedtime 5 mg capsule 57151 672386 [id number] Maricruz Vizcarra [id number] Nurse Practitioner [facility] ([facility]) 5 mg 11/06/2020 12:00:00 AM EST capsule 50 TAKE TWO CAPSULES BY MOUTH EVERY DAY AT BEDTIME TAKE TWO CAPSULES BY MOUTH EVERY DAY AT BEDTIME SOLD: 2019 [facility] Prazosin 5 MG Oral Capsule prazosin 11/06/2020 12:00:00 AM EST 5 mg by mouth completed [id number] prazosin by mouth [id number] 11/06/2020 at bedtime 5 mg capsule 85905 652513 [id number] Maricruz Vizcarra [id number] Nurse Practitioner [facility] ([facility]) 24 HR Bupropion Hydrochloride 150 MG [...] TABLET BY MOUTH EVERY MORNING SOLD: 11/23/2020 [facility] Hydrochlorothiazide 12.5 MG Oral [...] Ortho Tri-Cyclen Lo 0.18/0.215/0.25 MG-25 MCG eCW1 ([facility]) Ortho Tri-Cyclen Lo 0.18/0.215/0.25 MG-25 MCG UNK 08/28/20 12:00:00 AM EDT 1.0 {tablet} active Ortho Tri-Cyclen Lo 0.18/0.215/0.25 MG-25 MCG eCW1 ([facility]) Ortho Tri-Cyclen Lo 0.18/0.215/0.25 MG-25 MCG UNK 08/28/20 12:00:00 AM EDT 1.0 {tablet} active Ortho Tri-Cyclen Lo 0.18/0.215/0.25 MG-25 MCG eCW1 ([facility]) Ortho Tri-Cyclen Lo 0.18/0.215/0.25 MG-25 MCG UNK 08/28/20 12:00:00 AM EDT 1.0 {tablet} active Ortho Tri-Cyclen Lo 0.18/0.215/0.25 MG-25 MCG eCW1 ([facility]) Ortho Tri-Cyclen Lo 0.18/0.215/0.25 MG-25 MCG UNK 08/28/20 12:00:00 AM EDT 1.0 {tablet} active Ortho Tri-Cyclen Lo 0.18/0.215/0.25 MG-25 MCG eCW1 ([facility]) Ortho Tri-Cyclen Lo 0.18/0.215/0.25 MG-25 MCG UNK 08/28/20 12:00:00 AM EDT 1.0 {tablet} active Ortho Tri-Cyclen Lo 0.18/0.215/0.25 MG-25 MCG eCW1 ([facility]) 50 mcg 08/22/2020 12:00:00 AM EDT tablet [...] TABLET BY MOUTH EVERY MORNING SOLD: 08/21/2020 [facility] Hydrochlorothiazide 12.5 MG Oral Tablet Hydrochlorothiazide 12.5 MG 08/19/2020 12:00:00 AM EDT 1.0 {tablet_in_the_morning} acti ve Hydrochlorothiazide 12.5 MG eCW1 ([facility]) Hydrochlorothiazide 12.5 MG Oral Tablet Hydrochlorothiazide 12.5 MG 08/19/2020 12:00:00 AM EDT 1.0 {tablet_in_the_morning} susp ended Hydrochlorothiazide 12.5 MG eCW1 ([facility]) Hydrochlorothiazide 12.5 MG Oral Tablet Hydrochlorothiazide 12.5 MG 08/19/2020 12:00:00 AM EDT 1.0 {tablet_in_the_morning} acti ve Hydrochlorothiazide 12.5 MG eCW1 ([facility]) Hydrochlorothiazide 12.5 MG Oral Tablet Hydrochlorothiazide 12.5 MG 08/19/2020 12:00:00 AM EDT 1.0 {tablet_in_the_morning} acti ve Hydrochlorothiazide 12.5 MG eCW1 ([facility]) Hydrochlorothiazide 12.5 MG Oral Tablet Hydrochlorothiazide 12.5 MG 08/19/2020 12:00:00 AM EDT 1.0 {tablet_in_the_morning} acti ve Hydrochlorothiazide 12.5 MG eCW1 ([facility]) Hydrochlorothiazide 12.5 MG Oral Tablet Hydrochlorothiazide 12.5 MG 08/19/2020 12:00:00 AM EDT 1.0 {tablet_in_the_morning} acti ve Hydrochlorothiazide 12.5 MG eCW1 ([facility]) [place] Carbonate 300 MG Oral Capsule lithium carbonate 12:00:00 AM EDT 300 mg by mouth completed [id number] lithium car bonate by mouth [id number] 08/15/2020 at bedtime 300 mg capsule 92466 587997 [id number] Devin Hoskins [id number] Psychiatry [facility] ([facility]) 300 mg 08/15/2020 12:00:00 AM EDT capsule [...] AM EDT 150 mg by mouth completed 565959 bupropion HCl by mouth [id number] 08/15/2020 once a day 150 mg tablet ex tended release 24 hr 80287 827066 [id number] Saumya Don [id number] P sychiatric/Mental Health [facility] ([facility]) 300 mg 08/15/2020 12:00:00 AM EDT capsule 30 TAKE ONE CAPSULE BY MOUTH EVERY DAY AT BEDTIME TAKE ONE CAPSULE BY MOUTH EVERY DAY AT BEDTIME SOLD: [facility] 24 HR Bupropion Hydrochloride 150 MG Extended Release Oral T ablet bupropion HCl 08/15/2020 12:00:00 AM EDT 150 mg by mouth completed 664172 bupropion HCl by mouth [id number] 08/15/2020 once a day 150 mg tablet ex tended release 24 hr 74059 844457 [id number] Saumya Don [id number] P sychiatric/Mental Health [facility] ([facility]) 24 HR Bupropion Hydrochloride 300 MG Extended Release Oral T ablet bupropion HCl 08/15/2020 12:00:00 AM EDT 300 mg by mouth completed [id number] bupropion HCl by mouth [id number] 08/15/2020 10/14/2020 once a day 30 300 mg tablet extended release 24 hr 52961 169281 [id number] Devin Hoskins [id number] Psychi atry [facility] ([facility]) 24 HR Bupropion Hydrochloride 300 MG Extended Release Oral T ablet BUPROPION HCL 08/15/2020 12:00:00 AM EDT tablet extended release 24 hr 30 TAKE ONE TABLET BY MOUTH EVERY DAY TAKE ONE TABLET BY MOUTH EVERY DAY SOLD: 09/16/2020 [facility] [place] Carbonate 300 MG Oral Capsule lithium carbonate 12:00:00 AM EDT 300 mg by mouth completed [id number] lithium car bonate by mouth [id number] 08/15/2020 at bedtime 300 mg capsule 09893 908921 [id number] Devin Hoskins [id number] Psychiatry [facility] ([facility]) 24 HR Bupropion Hydrochloride 300 MG Extended [...] AM EDT 120 mg by mouth completed [id number] Latuda by mout h [id number] 04/25/2020 10/14/2020 once a day 30 120 mg tablet 88110 [id number] Devin Hoskins [id number] Psychiatry [facility] ([facility]) Lurasidone Hydrochloride 120 MG Oral Tablet [Latuda] Latuda 04/25/2020 12:00:00 AM EDT 120 mg by mouth completed [id number] Latuda by mout h [id number] 04/25/2020 06/24/2020 once a day 30 120 mg tablet 37182 888332 [id number] Saumya Don [id number] Psychiatric/Mental Health [facility] ([facility]) 300 mg 04/24/2020 12:00:00 AM EDT tablet [...] 02/23/2020 12:00:00 AM EDT 20 mg completed [id number] Latuda 02/23/2020 30 20 mg tablet 80043 263757 [id number] Saumya Don [id number] P sychiatric/Mental Health [facility] ([facility]) 20 mg 02/23/2020 12:00:00 AM EDT [...] 02/23/2020 12:00:00 AM EDT 20 mg completed [id number] Latuda 02/23/2020 30 20 mg tablet 35994 297581 [id number] Saumya Don [id number] P sychiatric/Mental Health [facility] ([facility]) 300 mg 02/05/2020 12:00:00 AM EDT [...] 01/26/2020 12:00:00 AM EDT 150 mg completed [id number] bupropion HCl 01/26/2020 30 150 mg tablet extended release 24 hr 43135 537130 [id number] Saumya Don [id number] Psychiatric/Mental Health [facility] ([facility]) 5 mg 01/26/2020 12:00:00 AM EDT capsule [...] MOUTH EVERY DAY SOLD: 02/26/2020 [facility] [place] Carbonate 300 MG Oral Capsule lithium carbonate 12:00:00 AM EDT 300 mg completed [id number] lithium carbonate 30 300 mg capsule 16473 568047 [id number] Saumya Don [id number] Psychiatric/Mental Health [facility] ([facility]) Prazosin 5 MG Oral Capsule prazosin 01/26/2020 12:00:00 AM EDT 5 mg completed [id number] prazosin 01/26/2020 30 5 mg capsule 33220 804722 [id number] Saumya Don [id number] Psychiatric/Mental Health [facility] ([facility]) 24 HR Bupropion Hydrochloride 300 MG Extended Release Oral T ablet bupropion HCl 01/26/2020 12:00:00 AM EDT 300 mg completed [id number] bupropion HCl 01/26/2020 07/24/2020 30 300 mg tablet extended release 24 hr 83392 161157 [id number] Saumya Don [id number] Psychiatric/Mental Health [facility] ([facility]) 5 mg 01/26/2020 12:00:00 AM EDT capsule 60 TAKE TWO CAPSULES BY MOUTH AT BEDTIME TAKE TWO CAPSULES BY MOUTH AT BEDTIME SOLD: 04/06/2020 [facility] 24 HR Bupropion Hydrochloride 150 MG Extended Release Oral T ablet bupropion HCl 01/26/2020 12:00:00 AM EDT 150 mg completed [id number] bupropion HCl 01/26/2020 07/24/2020 30 150 mg tablet extended release 24 hr 83107 016378 [id number] Saumya Don [id number] Psychiatric/Mental Health [facility] ([facility]) 300 mg 01/26/2020 12:00:00 AM EDT tablet extended release 24 hr 30 TAKE ONE TABLET BY MOUTH EVERY MORNING TAKE ONE TABLET BY MOUTH EVERY MORNING SOLD: 03/22/2020 [facility] Prazosin 5 MG Oral Capsule prazosin 01/26/2020 12:00:00 AM EDT 5 mg completed 211897 prazosin 01/26/2020 30 5 mg capsule 84343 396705 [id number] Saumya Don [id number] Psychiatric/Mental Health [facility] ([facility]) 24 HR Bupropion Hydrochloride 150 MG Extended Release Oral T ablet bupropion HCl 01/26/2020 12:00:00 AM EDT 150 mg completed [id number] bupropion HCl 01/26/2020 30 150 mg tablet extended release 24 hr 22015 230117 [id number] Saumya Don [id number] Psychiatric/Mental Health [facility] ([facility]) 24 HR Bupropion Hydrochloride 300 MG Extended Release Oral T ablet bupropion HCl 01/26/2020 12:00:00 AM EDT 300 mg completed [id number] bupropion HCl 01/26/2020 30 300 mg tablet extended release 24 hr 32400 509194 [id number] Saumya Don [id number] Psychiatric/Mental Health [facility] ([facility]) [place] Carbonate 300 MG Oral Capsule lithium carbonate 12:00:00 AM EDT 300 mg completed [id number] lithium carbonate 01/26/2020 07/24/2020 30 300 mg capsule 70782 877156 [id number] Nya Don [id number] Psychiatric/Mental Health [facility] ([facility]) 24 HR Bupropion Hydrochloride 150 MG Extended Release Oral T ablet BUPROPION HCL 01/26/2020 12:00:00 AM EDT tablet extended release 24 hr 30 TAKE ONE TABLET BY MOUTH EVERY DAY TAKE ONE TABLET BY MOUTH EVERY DAY SOLD: 01/28/2020 [facility] Prazosin 5 MG Oral Capsule prazosin 01/26/2020 12:00:00 AM EDT 5 mg completed [id number] prazosin 01/26/2020 30 5 mg capsule 38788 016813 [id number] Saumyaanthony Don [id number] Psychiatric/Mental Health [facility] ([facility]) 5 mg 01/26/2020 12:00:00 AM EDT capsule 60 TAKE TWO CAPSULES BY MOUTH AT BEDTIME TAKE TWO CAPSULES BY MOUTH AT BEDTIME SOLD: 02/26/2020 [facility] Prazosin 5 MG Oral Capsule prazosin 01/26/2020 12:00:00 AM EDT 5 mg completed [id number] prazosin 01/26/2020 07/24/2020 30 5 mg capsule 87715 128196 [id number] Saumyaester Don [id number] Psychiatric/Mental Health [facility] ([facility]) 24 HR Bupropion Hydrochloride 300 MG Extended Release Oral T ablet bupropion HCl 01/26/2020 12:00:00 AM EDT 300 mg completed [id number] bupropion HCl 01/26/2020 30 300 mg tablet extended release 24 hr [id number] Saumyaester Don [id number] Psychiatric[facility]Mental [facility] ([facility]) 300 mg 01/26/2020 12:00:00 AM EDT tablet extended release 24 hr 30 TAKE ONE TABLET BY MOUTH EVERY MORNING TAKE ONE TABLET BY MOUTH EVERY MORNING SOLD: 02/26/2020 [facility] [place] Carbonate 300 MG Oral Capsule lithium carbonate 12:00:00 AM EDT 300 mg completed [id number] lithium carbonate 30 300 mg capsule 61437 [id number] Saumyaester Don [id number] Psychiatric[facility]Mental [facility] ([facility]) 300 mg 01/26/2020 12:00:00 AM EDT [...] AM EST 20 mg by mouth completed [id number] Latuda by mouth [id number] 01/19/2020 02/18/2020 once a day 30 20 mg tablet 84616 [id number] Saumya Don [id number] [facility] Lurasidone Hydrochloride 20 MG Oral Tablet [Latuda] Latuda 01/19/2020 12:00:00 AM EST 20 mg by mouth completed [id number] Latuda by mouth [id number] 01/19/2020 02/18/2020 once a day 30 20 mg tablet 82906 [id number] Saumya Don [id number] [facility] ([facility]) 120 mg 12/30/2019 12:00:00 AM EST tablet 30 TAKE ONE TABLET BY MOUTH EVERY MORNING DIRECTED WITH 20 MG TAKE ONE TABLET BY MOUTH EVERY MORNING A S DIRECTED WITH 20 MG SOLD: 01/01/2020 [facility] Lurasidone Hydrochloride 120 MG Oral Tablet [Latuda] Latuda 12/29/2019 12:00:00 AM EST 120 mg by mouth completed [id number] Latuda by mout h [id number] 12/29/2019 02/18/2020 every morning 30 120 mg tablet as directed 7415 9 [id number] Saumya Don [id number] [facility] ([facility]) Lurasidone Hydrochloride 120 MG Oral Tablet [Latuda] Latuda 12/29/2019 12:00:00 AM EST 120 mg by mouth completed [id number] Latuda by mout h [id number] 12/29/2019 02/18/2020 every morning 30 120 mg tablet as directed 7415 9 [id number] Saumya Don [id number] [facility] ([facility]) 0.25-35 mg-mcg 12/21/2019 12:00:00 AM EST tablet [...] MOUTH AT BEDTIME SOLD: 11/20/2019 [facility] 300 mg 10/31/2019 12:00:00 AM EST tablet extended release 24 hr 30 TAKE ONE TABLET BY MOUTH EVERY MORNING TAKE ONE TABLET BY MOUTH EVERY MORNING SOLD: 12/27/2019 [facility] 300 mg 10/31/2019 12:00:00 AM EST tablet extended release 24 hr 30 TAKE ONE TABLET BY MOUTH EVERY MORNING TAKE ONE TABLET BY MOUTH EVERY MORNING SOLD: 11/29/2019 [facility] 5 mg 10/28/2019 12:00:00 AM [...] WITH 350MG TABLET SOLD: 12/02/2019 [facility] 120 mg 10/28/2019 12:00:00 AM EST tablet 30 TAKE ONE TABLET BY MOUTH EVERY EVENING WITH MEALS TAKE ONE TABLET BY MOUTH EVERY EVENING WITH MEALS SOLD : 11/29/2019 [facility] Prazosin 5 MG Oral Capsule prazosin 10/27/2019 12:00:00 AM EST 5 mg by mouth completed [id number] prazosin by mouth [id number] 10/27/201910/2020 at bedtime 30 5 mg capsule 94103 [id number] Saumyaester Don [id number] [facility] ([facility]) Prazosin 5 MG Oral Capsule prazosin 10/27/2019 12:00:00 AM EST 5 mg by mouth completed [id number] prazosin by mouth [id number] 10/27/201910/2020 at bedtime 30 5 mg capsule 62910 421783 [id number] Saumyaester Don [id number] [facility] ([facility]) Prazosin 5 MG Oral Capsule prazosin 10/27/2019 12:00:00 AM EST 5 mg by mouth completed [id number] prazosin by mouth [id number] 10/27/201910/2020 at bedtime 30 5 mg capsule 72971 036947 [id number] Saumyaanthony Don [id number] [facility] ([facility]) Lurasidone Hydrochloride 120 MG Oral Tablet [Latuda] Latuda 10/27/2019 12:00:00 AM EST 120 mg by mouth completed [id number] Latuda by mout h [id number] 10/27/2019 12/26/2019 every evening 30 120 mg tablet with meals 87903 [id number] Saumya Don [id number] [facility] ([facility]) Lurasidone Hydrochloride 120 MG Oral Tablet [Latuda] Latuda 10/27/2019 12:00:00 AM EST 120 mg by mouth completed [id number] Latuda by mout h [id number] 10/27/2019 12/26/2019 every evening 30 120 mg tablet with meals 33514 [id number] Saumya Don [id number] [facility] ([facility]) 24 HR Bupropion Hydrochloride 150 MG Extended Release Oral T ablet bupropion HCl 10/27/2019 12:00:00 AM EST 150 mg by mouth completed [id number] bupropion HCl by mouth [id number] 10/27/2019 01/25/2020 once a day 30 150 mg tablet extended release 24 hr [id number] [id number] Saumya Don [id number] [facility] ([facility]) 24 HR Bupropion Hydrochloride 150 MG Extended Release Oral T ablet bupropion HCl 10/27/2019 12:00:00 AM EST 150 mg by mouth completed [id number] bupropion HCl by mouth [id number] 10/27/2019 01/25/2020 once a day 30 150 mg tablet extended release 24 hr 37988 [id number] Saumya Arian [id number] [facility] ([facility]) Nystatin 100 UNT/MG Topical Powder 100,000 unit/gram [place]STATI N 05/13/2019 12:00:00 AM EDT powder 15 APPLY TO AFFECTED AREA TW O TIMES A DAY APPLY TO AFFECTED AREA TWO TIMES A DAY SOLD: 12/21/2019 [facility] Insurance Providers Payer name Policy type / Coverage type Policy ID Covered constitution party ID Covered constitution party's relationship to fuentes Policy Fuentes Plan Information EMEDNY [id number] SP [id number] [facility] COMMUNITY PLAN [facility] [id number] SP [id number] [facility] [id number] Self [id number] EMNY [id number] SP [id number] [facility] COMMUNITY PLAN [facility] [id number] SP [id number] Self Pay P none S none MEDICAID [id number] SP [id number] [employer] [place] 020/520 [id number] SP [id number] [facility] [id number] SP [id number] MEDICAID [facility] [id number] SP [id number] BLUE CROSS [id number] SP [id number] SELF PAY [place] 020/520 [id number] SP [id number] [facility] [id number] SP [id number] [place] PPO 302/307 [id number] SP [id number] SELF PAY MEDICAID [facility] [id number] SP [id number] BLUE CROSS [id number] SP [id number] ANSI-Medicaid [id number] ANSI-Medicaid [id number] ANSI-Medicaid [id number] ANSI-Medicaid [id number] ANSI-Medicaid [id number] ANSI-Medicaid [id number] [facility] COMMUNITY PLAN [id number] SP [id number] BLUE CROSS [id number] SP [id number] ANSI-Medicaid [id number] ANSI-Medicaid [id number] Self Pay P UNAVAILABLE S [facility] O [id number] S [id number] ANSI-Medicaid [id number] ANSI-Medicaid [id number] ANSI-Medicaid [id number] ANSI-Medicaid [id number] ANSI-Medicaid [id number] ANSI-Medicaid [id number] ANSI-Medicaid [id number] ANSI-Medicaid [id number] ANSI-Medicaid [id number] ANSI-Medicaid [id number] ANSI-Medicaid [id number] ANSI-Medicaid [id number] ANSI-Medicaid [id number] ANSI-Medicaid [id number] ANSI-Medicaid [id number] ANSI-Medicaid [id number] [facility] [id number] SP [id number] [facility] O [id number] S [id number] [facility] Health Maintenance Organization (HMO) [id number] Self [id number] UNAVAILABLE UNAVAILA BLE SELF PAY UNAVAILABLE UNAVAILA BLE MEDICAID [id number] [facility] OFFICE OF MENTAL HEALTH [id number] S [id number] [facility] OFFICE OF MENTAL HEALTH [id number] S [id number] [facility] O [id number] S [id number] [facility] S [id number] S [id number] BLUE CROSS [place] PLAN [id number] SP [id number] O BLUE [id number] SP [id number] O BLUE [id number] SP [id number] Problems, Conditions, and Diagnoses Code Display Name Description Problem Type Effective Dates Data Source(s) F31.9 Bipolar disorder, unspecified Unspecified Bipola r and Related Disorder Condition 12/31/2020 12:00:00 AM EST [facility] ([facility]) F43.12 Post-traumatic stress disorder, chronic Post-traumatic stress disorder, chronic Condition 12/31/2020 12:00:00 AM EST [facility] ([facility]) E78.2 Mixed hyperlipidemia Mixed hyperlipidemia Problem 08/19/2020 12:00:00 AM EDT eCW1 ([facility]) Z71.3 Dietary counseling and surveillance Dietary coun seling and surveillance Diagnosis 09/27/2020 08:41:31 AM [facility] Z68.44 Body mass index (BMI) 60.0-69.9, adult B tono mass index (BMI) 60.0-69.9, adult Diagnosis 09/27/2020 08:41:31 AM [facility] E66.01 Morbid (severe) obesity due to excess ca lories Morbid (severe) obesity due to excess calories Diagnosis 09/27/2020 08:41:31 AM [facility] Surgeries/Procedures Procedure Description Date Indications Data Source(s) Extended Individual Psychotherapy - 45 min 12/31/2020 12:00:00 AM EST - 12/31/2020 12:00:00 AM EST [facility] ([facility]) Extended Individual Psychotherapy - 45 min 12:00:00 AM EST [facility] ([facility]) [facility] Telemed E/M Lvl 3--Est pt 12/26/2020 12:00:00 AM EST - 12/26/2020 12:00:00 AM EST [facility] ([facility]) Telemed A/O 30" 12/26/2020 12:00:00 AM EST [facility] ([facility]) MHC Telemed E/M Lvl 3--Est pt 12/26/2020 12:00:[address] [facility] ([facility]) [id number]"Psychotherapy 12:00:00 AM EST - 12/25/2020 12:00:00 AM EST [facility] ([facility]) [id number]"Psychotherapy 12/24/2020 12:00:00 AM EST [facility] ([facility]) Extended Individual Psychotherapy - 45 min 12/03/2020 12:00:00 AM EST - 12/03/2020 12:00:00 AM EST [facility] ([facility]) Extended Individual Psychotherapy - 45 min 1 12:00:00 AM EST [facility] ([facility]) Extended Individual Psychotherapy - 45 min 11/25/2020 12:00:00 AM EST - 11/25/2020 12:00:00 AM EST [facility] ([facility]) Extended Individual Psychotherapy - 45 min 12:00:00 AM EST [facility] ([facility]) Extended Individual Psychotherapy - 45 min 11/19/2020 12:00:00 AM EST - 11/19/2020 12:00:00 AM EST [facility] ([facility]) Extended Individual Psychotherapy - 45 min 12:00:00 AM EST [facility] ([facility]) OFFICE OUTPATIENT VISIT 15 MINUTES 11/06 12:00:00 AM EST - 11/06/2020 12:00:00 AM EST [facility] ([facility]) Psychotherapy ADD ON - 30 Minutes 11/06/2020 12:00:00 AM EST [facility] ([facility]) OFFICE OUTPATIENT VISIT 15 MINUTES 11/06/2020 12:00:00 AM EST [facility] ([facility]) Extended Individual Psychotherapy - 45 min 11/05/2020 12:00:00 AM EST - 11/05/2020 12:00:00 AM EST [facility] ([facility]) Extended Individual Psychotherapy - 45 min 0 12:00:00 AM EST [facility] ([facility]) Extended Individual Psychotherapy - 45 min 10/22/2020 12:00:00 AM EST - 10/22/2020 12:00:00 AM EST [facility] ([facility]) Extended Individual Psychotherapy - 45 min 0 12:00:00 AM EST [facility] ([facility]) Extended Individual Psychotherapy - 45 min 09/25/2020 12:00:00 AM EST - 09/25/2020 12:00:00 AM EST [facility] ([facility]) Extended Individual Psychotherapy - 45 min 0 12:00:00 AM EST [facility] ([facility]) Extended Individual Psychotherapy - 45 min 09/10/2020 12:00:00 AM EDT - 09/10/2020 12:00:00 AM EDT [facility] ([facility]) Extended Individual Psychotherapy - 45 min 0 12:00:00 AM EDT [facility] ([facility]) MHC Telemed E/M Lvl 3--Est pt 08/27/2020 12:00:00 AM EDT - 08/27/2020 12:00:00 AM EDT [facility] ([facility]) Telemed A/O 30" 08/27/2020 12:00:00 AM EDT [facility] ([facility]) MHC Telemed E/M Lvl 3--Est pt 08/27/2020 12:00:00 AM E DT [facility] ([facility]) ECG ROUTINE ECG W/LEAST 12 LDS W/I&R 08/19/2020 12:00: 00 AM EDT eCW1 ([facility]) [id number]"Psychotherapy 0 12:00:00 AM EDT - 08/19/2020 12:00:00 AM EDT [facility] ([facility]) [id number]"Psychotherapy 08/16/2020 12:00:00 AM EDT [facility] ([facility]) MHC Telemed E/M Lvl 3--Est pt 05/14/2020 12:00:00 AM EDT - 05/14/2020 12:00:00 AM EDT [facility] ([facility]) Telemed A/O 30" 05/14/2020 12:00:00 AM EDT [facility] ([facility]) MHC Telemed E/M Lvl 3--Est pt 05/14/2020 12:00:00 AM E DT [facility] ([facility]) TEMPMHCTelemed 20" psychotherapy 12:00:00 AM EDT - 02/28/2020 12:00:00 AM EDT [facility] ([facility]) TEMPMHCTelemed 20" psychotherapy 02/27/2020 12:00:00 A M EDT [facility] ([facility]) TEMPMHCTelemed 30" Psychotherapy 12:00:00 AM EDT - 02/13/2020 12:00:00 AM EDT [facility] ([facility]) TEMPMHCTelemed 30" Psychotherapy 02/13/2020 12:00:00 A M EDT [facility] ([facility]) TEMPMHCTelemed 30" Psychotherapy 12:00:00 AM EDT - 01/31/2020 12:00:00 AM EDT [facility] ([facility]) TEMPMHCTelemed 30" Psychotherapy 01/30/2020 12:00:00 A M EDT [facility] ([facility]) Extended Individual Psychotherapy - 45 min 01/16/2020 12:00:00 AM EST - 01/16/2020 12:00:00 AM EST [facility] ([facility]) Extended Individual Psychotherapy - 45 min 0 12:00:00 AM EST [facility] ([facility]) OFFICE OUTPATIENT VISIT 15 MINUTES 01/15 12:00:00 AM EST - 01/16/2020 12:00:00 AM EST [facility] ([facility]) OFFICE OUTPATIENT VISIT 15 MINUTES 01/16/2020 12:00:00 AM EST [facility] ([facility]) OFFICE OUTPATIENT VISIT 15 MINUTES 11/17 12:00:00 AM EST - 11/17/2019 12:00:00 AM EST [facility] ([facility]) OFFICE OUTPATIENT VISIT 15 MINUTES 11/17/2019 12:00:00 AM EST [facility] ([facility]) Brief Individual Psychotherapy - 30 min 11/16/2019 12:00:00 AM EST - 11/16/2019 12:00:00 AM EST [facility] ([facility]) Brief Individual Psychotherapy - 30 min 11/14/2019 12: 00:00 AM EST [facility] ([facility]) Results ID Date Data Source [id number] 12/30/2020 12:59:00 PM EST [facility] Name Value Range Interpretation Code Description Data Lisa rce(s) Supporting Document(s) SARS coronavirus 2 RNA [Presence] in Res piratory specimen by CHUCK with probe detection NEGATIVE [facility] This lab was ordered by [facility] a nd reported by [facility]. ID Date Data Source [id number] 09/27/2020 03:56:39 PM EST [facility] Name Value Range Interpretation Code Description Data Lisa rce(s) Supporting Document(s) Progress Note [facility] XQTKGu6kGzSCTkAl75/SHJgpUZKnk8VuJAegYPg7UOaxOKMnC1PjUTK5qS6hHHA6WExCSsHuDbLwYUEu [facility] [file] ICAgICAgICAgICAgICAgICAgICAgICAgICAgICAgICAgICAgICAgICAgICAgICAgICAgICAgICAgICAg ICAgICAgICAgICAgICAgICAgICAgICAgICAgICAgIC AgICAgICAgDQogICAgICAgICAgICAgICAgICAgICAgICAgICAgICAgICAgICAgICAgICAgICAgICAgIC AgICAgICAgICAgICAgICAgICAgICAgICAgICAgICAgICAgICAgICAgICAgICAgICAgDQogICAgICAgIC AgICAgICAgICAgICAgICAgICAgICAgICAgICAgICAg ICAgICAgICAgICAgICAgICAgICAgICAgICAgICAgICAgICAgICAgICAgICAgICAgICAgICAgICAgICAg DQogICAgICAgICAgICAgICAgICAgICAgICAgICAgICAgICAgICAgICAgICAgICAgICAgICAgICAgICAg ICAgICAgICAgICAgICAgICAgICAgICAgICAgICAgIC AgICAgICAgICAgDQogICAgICAgICAgICAgICAgICAgICAgICAgICAgICAgICAgICAgICAgICAgICAgIC AgICAgICAgICAgICAgICAgICAgICAgICAgICAgICAgICAgICAgICAgICAgICAgICAgICAgDQogICAgIC AgICAgICAgICAgICAgICAgICAgICAgICAgICAgICAg ICAgICAgICAgICAgICAgICAgICAgICAgICAgICAgICAgICAgICAgICAgICAgICAgICAgICAgICAgICAg ICAgDQogICAgICAgICAgICAgICAgICAgICAgICAgICAgICAgICAgICAgICAgICAgICAgICAgICAgICAg ICAgICAgICAgICAgICAgICAgICAgICAgICAgICAgIC AgICAgICAgICAgICAgDQogICAgICAgICAgICAgICAgICAgICAgICAgICAgICAgICAgICAgICAgICAgIC AgICAgICAgICAgICAgICAgICAgICAgICAgICAgICAgICAgICAgICAgICAgICAgICAgICAgICAgDQogIC AgICAgICAgICAgICAgICAgICAgICAgICAgICAgICAg ICAgICAgICAgICAgICAgICAgICAgICAgICAgICAgICAgICAgICAgICAgICAgICAgICAgICAgICAgICAg ICAgICAgDQogICAgICAgICAgICAgICAgICAgICAgICAgICAgICAgICAgICAgICAgICAgICAgICAgICAg ICAgICAgICAgICAgICAgICAgICAgICAgICAgICAgIC UuHERdMRZvZSTkRYLpIEJaXZg9W1asQKYjGEPgJH9pENe6Rk0+ASvGRvLqDLO5qiKpbI7FTB1yy7PbGJ tlSDZsc3VaQQy6YE7NWBQoLRmpLV1CSHmeid4FBXCxHASrpSUGr0qoBmNjLFO0XFPlHjurNL4PSSGwF3 pxwoFkNFRmJXSZZX9JFnRoF9TyvW05WVMJQn9+DQpl bmFnUirMVhFqROHmk0KaPGm4KW0NEWIjXjtxb5ViMfTtYUPUEKtwHH5PPWO9QWZeIYBaFc1NAOKeI447 zvJlKM9SOw0RPyMtQR2uzx9KDpLyLSThWrgZTza1CKlcZO6ZxVXhIUoIbx3bucUakdXEx7UtpfMkiDOA CPWtiHKhRAZBVMM1bQ5uLYGCPSXJZQ9hEFAhRVFrQL CwMsBcPWNpIjjmRCUHUPvXRvFeO6Jjj3MpQaJ8LRUgKlHbCOcqMSApYrC4XX87yEveCI9MAIApREDjNN 63HLOnHORqAe6GJr3EGtElUB4ydx5ANuOjSGHuAsdJTlq5NXiwUN6TtAIcM4CzjRQzc6cVUiGqF0WECG BeSCSiDv5KPPRkIyRjDRSaFUvyDE7nIMGoCMCQwWew pmF7OD5XVE0nieGrUV8TLdKnBa4iYo9ZCiCiY8SuY0FuXJTmCHZNIYdiXC5BOLrwRG7hWA1Pj0DIxGTc oN6vyy3LJVVqQWMzEummgk6UGifqX9Q5vVbuNTEmZzMjXRKTUSjoQP2ZSCXjBLC4BETaDLXqUTOKVpUc N08aCN6ZV5Hwt63vJgC6PHOkGuHpJTxyFV53dUybuo QmeRWiyGyrCB7KXx0+BNoadtDhFpyFNrblRVYYEoUaIwVVXsJqDADfDJInGAJrEhG4FmTfQk3FIXGsUM MiCYBtRlTxCDHtJIGjPYbxAKJaACThKfb9TBBhGAGrIB1SEnKlFTRpWxAjMvnnLHEiSIZgcw6TFBUoTG XaTTK6IaUoEUFgVBSxJHojHLJzCVBlKAB6GYWnYRAq MF5HFlZqMZFxJRKvVlkhIAZxUKDqoi1FCMNmZEMiZRd6AgQiJMDlYBSnRVrbWDThRAJ7TGfeDQPqXLIk GD8VWiNsDDCpWSGmSzEjYPOoKYVdzi2TJSKkJVIjJdZpHDSgWVNsJTZpBCejCHYgWGY6UQDhTQTqQISw RB3ZXxJnIKQeTRF5VDYoDUHnJJIqyq5ESYZuMCUsMG K5DSBqLZRwNIGqRNruWFOeAAH8WzikEDBdCWTlPT1LLmBuOOYwMSt2SVRqQGUaHDRxwx3KONRlNPNqPQ ypCVUoNFTeWUJdRMkfFVHmGTU9UDw8GUFwQKMrJO1QSnYkEXYdDYq7KjVlFIHbDMDpgn2PGLGaHNOqRG YoNPRnPKVdDRZyUSpiOIXoWSJvHyueEOTyGFXiQG9R RzWwSUPlTmB8TRccWLIqWZRfyw7JOCVbNLIzMaKmNgLxPNThBNMpGMtyJTQuXPNqTUc9INZoVLMiRO6B FzYuWTMfWyDtPCDvQIFjKOUbow8NgODruKyxsg0NXGtCQg0IjNruVKN7WGxiGz4gxLPzWCZbRHTRMd1T akYdRNWeYQBDOXpxUGJkSCP4DPQoTFMhHLujQJxkEM PlQIL8DxUxNgfsChPrNQDkWsU7UmJzNzM8OHBsOBDgOHA7VVMpBQwjU0EbH2FuRnJ8YhP+QJ5qULj+Pg 2Rn0JfgdT5ixXjTUacYeH0Ve8GMTDSP1QVZm== ID Date Data Source CHLAMYDIA & GC DNA AMPLIFICAT 09/05/2020 03:36:13 AM EDT eCW 1 ([facility]) Name Value Range Interpretation Code Description Data Lisa rce(s) Supporting Document(s) Chlamydia trachomatis rRNA [Presence] in Unspecified specimen by Probe and target amplification method NEGATIVE eCW1 ([facility]) ID Date Data Source PAP REQUEST FOR SERVICE 09/04/2020 02:57:17 AM EDT eCW1 ([facility]) Name Value Range Interpretation Code Description Data Lisa rce(s) Supporting Document(s) eCW1 ([facility]) ID Date Data Source LIPID PANEL (CARDIAC RISK) 08/23/2020 11:41:38 AM EDT eCW1 ( [facility]) Name Value Range Interpretation Code Description Data Lisa rce(s) Supporting Document(s) Cholesterol [Moles/volume] in Serum or Plasma 197 CHOLESTEROL LEVEL eCW1 ([facility]) Cholesterol in HDL [Moles/volume] in Serum or Plasma 40 HDL CHOLESTEROL eCW1 ([facility]) Triglyceride [Mass/volume] in Serum or Plasma by calculation 139 TRIGLYCERIDES LEVEL eCW1 ([facility]) 4.925 CHOLESTEROL RISK RATIO eCW1 ([facility]) Cholesterol in LDL [Mass/volume] in Serum or Plasma by calculation 129 LDL CHOLESTEROL eCW1 ([facility]) 157 NON-HDL-C eCW1 ([facility]) ID Date Data Source [id number] 08/23/2020 11:41:38 AM EDT eCW1 (Pending sale to [facility]) Name Value Range Interpretation Code Description Data Lisa rce(s) Supporting Document(s) Hemoglobin A1c/Hemoglobin.total in Blood 5.6 HEMOGLOBIN A1c eCW1 ([facility]) ID Date Data Source FREE T4 & TSH PANEL 08/23/2020 11:41:38 AM EDT eCW1 (Pending sale to [facility]) Name Value Range Interpretation Code Description Data Lisa rce(s) Supporting Document(s) 0.611 THYROID STIMULATING HORMONE eC W1 ([facility]) 1.35 FREE T4 eCW1 ([facility]) ID Date Data Source Comprehensive Metabolic Profile (CMP) 08/23/2020 11:41:38 AM EDT eCW1 ([facility]) Name Value Range Interpretation Code Description Data Lisa rce(s) Supporting Document(s) > 60.0 eCW1 ([facility]) 0.81 CREATININE FOR GFR eCW1 ([facility]) 76 GLUCOSE, FASTING eCW1 (Pending sale to [facility]) 10 BLOOD UREA NITROGEN eCW1 ([facility]) 5.1 POTASSIUM SERUM eCW1 ([facility]) 107 CHLORIDE LEVEL eCW1 ([facility]) 141 SODIUM LEVEL eCW1 ([facility]) 29 CARBON DIOXIDE LEVEL eCW1 ([facility]) 14 AST/SGOT eCW1 ([facility]) 39 ALT/SGPT eCW1 ([facility]) 94 ALKALINE PHOSPHATASE eCW1 ([facility]) 9.1 CALCIUM LEVEL eCW1 ([facility]) 0.4 BILIRUBIN,TOTAL eCW1 ([facility]) 3.5 ALBUMIN eCW1 ([facility]) 7.0 TOTAL PROTEIN eCW1 ([facility]) 1.0 ALBUMIN/GLOBULIN RATIO eCW1 ([facility]) Procedure Social History Code Duration Value Status Description Data Source(s ) Smoking 12/31/2020 12:00:00 AM EST Unknown if ever smoked comp leted Unknown if ever smoked [facility] ([facility]) Smoking 12/26/2020 12:00:00 AM EST Unknown if ever smoked comp leted Unknown if ever smoked [facility] ([facility]) Smoking 12/25/2020 12:00:00 AM EST Unknown if ever smoked comp leted Unknown if ever smoked [facility] ([facility]) Smoking 12/03/2020 12:00:00 AM EST Unknown if ever smoked comp leted Unknown if ever smoked [facility] ([facility]) Smoking 11/26/2020 12:00:00 AM EST Never Smoker completed Never S moker eCW1 ([facility]) Smoking 11/25/2020 12:00:00 AM EST Unknown if ever smoked comp leted Unknown if ever smoked [facility] ([facility]) Smoking 11/19/2020 12:00:00 AM EST Unknown if ever smoked comp leted Unknown if ever smoked [facility] ([facility]) Smoking 11/06/2020 12:00:00 AM EST Unknown if ever smoked comp leted Unknown if ever smoked [facility] ([facility] [facility]) Smoking 11/05/2020 12:00:00 AM EST Unknown if ever smoked comp leted Unknown if ever smoked [facility] ([facility]) Smoking 10/22/2020 12:00:00 AM EST Unknown if ever smoked comp leted Unknown if ever smoked [facility] ([facility]) Smoking 09/25/2020 12:00:00 AM EST Unknown if ever smoked comp leted Unknown if ever smoked [facility] ([facility]) Smoking 09/10/2020 12:00:00 AM EDT Unknown if ever smoked comp leted Unknown if ever smoked [facility] ([facility]) Alcohol intake 09/06/2020 12:00:00 AM EDT Lifetime non-drinker (finding) completed Lifetime non-drinker (finding) [facility] Tobacco use and exposure 09/06/2020 12:00:00 AM EDT Never used co mpleted Never used [facility] Smoking 09/06/2020 12:00:00 AM EDT Never smoker completed Never s [facility] Smoking 08/28/2020 12:00:00 AM EDT Never Smoker completed Never S moker eCW1 ([facility]) Smoking 08/28/2020 12:00:00 AM EDT Never Smoker completed Never S moker eCW1 ([facility]) Smoking 08/28/2020 12:00:00 AM EDT Never Smoker completed Never S moker eCW1 ([facility]) Smoking 08/28/2020 12:00:00 AM EDT Never Smoker completed Never S moker eCW1 ([facility]) Smoking 08/28/2020 12:00:00 AM EDT Never Smoker completed Never S moker eCW1 ([facility]) Smoking 08/27/2020 12:00:00 AM EDT Unknown if ever smoked comp leted Unknown if ever smoked [facility] ([facility]) Smoking 08/19/2020 12:00:00 AM EDT Unknown if ever smoked comp leted Unknown if ever smoked [facility] ([facility]) Smoking 05/14/2020 12:00:00 AM EDT Unknown if ever smoked comp leted Unknown if ever smoked [facility] ([facility]) Smoking 02/28/2020 12:00:00 AM EDT Unknown if ever smoked comp leted Unknown if ever smoked [facility] ([facility]) Smoking 02/13/2020 12:00:00 AM EDT Unknown if ever smoked comp leted Unknown if ever smoked [facility] ([facility]) Smoking 01/31/2020 12:00:00 AM EDT Unknown if ever smoked comp leted Unknown if ever smoked [facility] ([facility]) Smoking 01/16/2020 12:00:00 AM EST Unknown if ever smoked comp leted Unknown if ever smoked [facility] ([facility]) Smoking 11/17/2019 12:00:00 AM EST Unknown if ever smoked comp leted Unknown if ever smoked [facility] ([facility]) Smoking 11/16/2019 12:00:00 AM EST Unknown if ever smoked comp leted Unknown if ever smoked [facility] ([facility]) Vital Signs ID Date Data Source UNK Name Value Range Interpretation Code Description Data Source(s) Diastolic blood pressure 0 mm[Hg] Normal (applies to non-numeric results) 0 mm[Hg] [facility] ([facility]) Systolic blood pressure 0 mm[Hg] Normal (applies t o non-numeric results) 0 mm[Hg] [facility] ([facility]) Body mass index (BMI) [Ratio] 0.00 kg/m2 No rmal (applies to non-numeric results) 0.00 kg/m2 [facility] ([facility]) Body weight Measured 0.00 lbs Normal (applies to n on-numeric results) 0.00 lbs [facility] ([facility]) Body height 0.00 in Normal (applies to non-numeric resu lts) 0.00 in [facility] ([facility]) Diastolic blood pressure 76 mm[Hg] 76 mm[Hg] eCW1 ([facility]) Systolic blood pressure 124 mm[Hg] 124 mm[Hg] e CW1 ([facility]) Body temperature 97 [degF] 97 [degF] eCW1 (Counts include 234 beds at the [facility]) Respiratory rate 18 /min 18 /min eCW1 (Counts include 234 beds at the [facility]) Heart rate 111 /min 111 /min eCW1 ([facility]) Body mass index (BMI) [Ratio] 64.12 kg/m2 64.12 kg/m2 eCW1 ([facility]) Body height 63 [in_i] 63 [in_i] eCW1 (Pending sale to [facility]) Body weight 362 [lb_av] 362 [lb_av] eCW1 ([facility]) Diastolic blood pressure 0 mm[Hg] Normal (applies to non-numeric results) 0 mm[Hg] [facility] ([facility]) Systolic blood pressure 0 mm[Hg] Normal (applies t o non-numeric results) 0 mm[Hg] [facility] ([facility]) Body mass index (BMI) [Ratio] 0.00 kg/m2 No rmal (applies to non-numeric results) 0.00 kg/m2 [facility] ([facility]) Body weight Measured 0.00 lbs Normal (applies to n on-numeric results) 0.00 lbs [facility] ([facility]) Body height 0.00 in Normal (applies to non-numeric resu lts) 0.00 in [facility] ([facility]) Diastolic blood pressure 76 mm[Hg] 76 mm[Hg] eCW1 ([facility]) Systolic blood pressure 126 mm[Hg] 126 mm[Hg] e CW1 ([facility]) Body mass index (BMI) [Ratio] 65.54 kg/m2 65.54 kg/m2 eCW1 ([facility]) Body height 63 [in_i] 63 [in_i] eCW1 (Pending sale to [facility]) Body weight 370 [lb_av] 370 [lb_av] eCW1 ([facility]) Diastolic blood pressure 0 mm[Hg] Normal (applies to non-numeric results) 0 mm[Hg] [facility] ([facility]) Systolic blood pressure 0 mm[Hg] Normal (applies t o non-numeric results) 0 mm[Hg] [facility] ([facility]) Body mass index (BMI) [Ratio] 0.00 kg/m2 No rmal (applies to non-numeric results) 0.00 kg/m2 [facility] ([facility]) Body weight Measured 0.00 lbs Normal (applies to n on-numeric results) 0.00 lbs [facility] ([facility]) Body height 0.00 in Normal (applies to non-numeric resu lts) 0.00 in [facility] ([facility]) Diastolic blood pressure 68 mm[Hg] 68 mm[Hg] eCW1 ([facility]) Systolic blood pressure 118 mm[Hg] 118 mm[Hg] e CW1 ([facility]) Body temperature 97.5 [degF] 97.5 [degF] eCW1 ( [facility]) Respiratory rate 18 /min 18 /min eCW1 (Counts include 234 beds at the [facility]) Heart rate 113 /min 113 /min eCW1 ([facility]) Body mass index (BMI) [Ratio] 65.50 kg/m2 65.50 kg/m2 W1 ([facility]) Body height 63 [in_i] 63 [in_i] eCW1 (Pending sale to [facility]) Body weight 369.8 [lb_av] 369.8 [lb_av] eCW1 ([facility]) Diastolic blood pressure 0 mm[Hg] Normal (applies to non-numeric results) 0 mm[Hg] [facility] ([facility]) Systolic blood pressure 0 mm[Hg] Normal (applies t o non-numeric results) 0 mm[Hg] [facility] ([facility]) Body mass index (BMI) [Ratio] 0.00 kg/m2 No rmal (applies to non-numeric results) 0.00 kg/m2 [facility] ([facility]) Body weight Measured 0.00 lbs Normal (applies to n on-numeric results) 0.00 lbs [facility] ([facility]) Body height 0.00 in Normal (applies to non-numeric resu lts) [facility].00 [facility]) Diastolic blood pressure 0 mm[Hg] Normal (applies to non-numeric results) 0 mm[Hg] [facility] ([facility]) Systolic blood pressure 0 mm[Hg] Normal (applies t o non-numeric results) 0 mm[Hg] [facility] ([facility]) Body mass index (BMI) [Ratio] 0.00 kg/m2 No rmal (applies to non-numeric results) 0.00 kg/m2 [facility] ([facility]) Body weight Measured 0.00 lbs Normal (applies to n on-numeric results) 0.00 lbs [facility]) Body height 0.00 in Normal (applies to non-numeric resu lts) 0.00 in [facility] ([facility]) Diastolic blood pressure 0 mm[Hg] Normal (applies to non-numeric results) 0 mm[Hg] [facility] ([facility]) Systolic blood pressure 0 mm[Hg] Normal (applies t o non-numeric results) 0 mm[Hg] [facility] ([facility]) Body mass index (BMI) [Ratio] 0.00 kg/m2 No rmal (applies to non-numeric results) 0.00 kg/m2 [facility] ([facility]) Body weight Measured 0.00 lbs Normal (applies to n on-numeric results) 0.00 lbs [facility] ([facility]) Body height 0.00 in Normal (applies to non-numeric resu lts) 0.00 in [facility] ([facility]) Patient Treatment Plan of Care Planned Activity Planned Date Details Description Data Source (s) Ortho Tri-Cyclen Lo 0.18/0.215/0.25 MG-25 MCG 08/28/2020 12:00:00 A M EDT eCW1 ([facility]) Ortho Tri-Cyclen Lo 0.18/0.215/0.25 MG-25 MCG 08/28/2020 12:00:00 A M EDT eCW1 ([facility]) Ortho Tri-Cyclen Lo 0.18/0.215/0.25 MG-25 MCG 08/28/2020 12:00:00 A M EDT eCW1 ([facility]) Ortho Tri-Cyclen Lo 0.18/0.215/0.25 MG-25 MCG 08/28/2020 12:00:00 A M EDT eCW1 ([facility]) Ortho Tri-Cyclen Lo 0.18/0.215/0.25 MG-25 MCG 08/28/2020 12:00:00 A M EDT eCW1 ([facility]) Hydrochlorothiazide 12.5 MG Oral Tablet 08/19/2020 12:00:00 AM EDT eCW1 ([facility]) Hydrochlorothiazide 12.5 MG Oral Tablet 08/19/2020 12:00:00 AM EDT eCW1 ([facility]) Hydrochlorothiazide 12.5 MG Oral Tablet 08/19/2020 12:00:00 AM EDT eCW1 ([facility]) Hydrochlorothiazide 12.5 MG Oral Tablet 08/19/2020 12:00:00 AM EDT eCW1 ([facility])
[2021-01-07 03:15] LABS: HEMATOCRIT 38.1 % (36.0-47.0); HEMOGLOBIN 11.4 g/dl (12.0-15.5); MEAN CORPUSCULAR HEMOGLOBIN 25.1 pg (27.0-33.0); MEAN CORPUSCULAR HGB CONC 29.9 g/dl (32.0-36.5); MEAN CORPUSCULAR VOLUME 83.7 fl (80.0-96.0); PLATELET COUNT, AUTOMATED 334 10^3/uL (150-450); RED BLOOD COUNT 4.55 10^6/uL (4.00-5.40); WHITE BLOOD COUNT 10.7 10^3/uL (4.0-10.0)
[2021-01-07 03:37] LABS: AMPHETAMINES LEVEL URINE NEGATIVE (NEGATIVE); BARBITURATES URINE NEGATIVE (NEGATIVE); BENZODIAZEPINES URINE NEGATIVE (NEGATIVE); CANNABINOIDS URINE NEGATIVE (NEGATIVE); COCAINE METABOLITE URINE NEGATIVE (NEGATIVE); METHADONE URINE NEGATIVE (NEGATIVE); OPIATES URINE NEGATIVE (NEGATIVE); PHENCYCLIDINE URINE NEGATIVE (NEGATIVE)
[2021-01-07 03:38] LABS: HCG, SERUM QUALITATIVE NEGATIVE (NEGATIVE)
[2021-01-07 04:14] LABS: ACETAMINOPHEN LEVEL < 2.0 UG/ML (10.0-30.0); ALBUMIN 3.3 GM/DL (3.2-5.2); ALT/SGPT 45 U/L (12-78); BILIRUBIN,DIRECT < 0.1 MG/DL (0.0-0.2); BILIRUBIN,TOTAL 0.1 MG/DL (0.2-1.0); BLOOD UREA NITROGEN 10 MG/DL (7-18); CALCIUM LEVEL 8.2 MG/DL (8.5-10.1); CARBON DIOXIDE LEVEL 29 MEQ/L (21-32); CHLORIDE LEVEL 109 MEQ/L (98-107); CREATININE FOR GFR 0.76 MG/DL (0.55-1.30); ETHYL ALCOHOL (ETHANOL) < 0.003 % (0.000-0.010); GLOMERULAR FILTRATION RATE > 60.0 (>60); GLUCOSE, FASTING 122 MG/DL (70-100); POTASSIUM SERUM 3.8 MEQ/L (3.5-5.1); SALICYLATE LEVEL < 1.7 MG/DL (5.0-30.0); SODIUM LEVEL 143 MEQ/L (136-145); TOTAL PROTEIN 6.5 GM/DL (6.4-8.2)
--- OUTSIDE RECORDS SUMMARY | 2021-01-07 04:35 | CCD ---
Author Author [facility] Organization [facility] Address Unknown Phone Unavailable Care Team Providers Care Edi Coordinator Name Role Phone Ahmet Don PMH-BASTING MARKER Unavailable Unavailable Ahmet Don PMH-BASTING MARKER Unavailable Unavailable Ahmet Don PMH-BASTING MARKER Unavailable Unavailable Ahmet Don PMH-BASTING MARKER Unavailable Unavailable Ahmet Don PMH-BASTING MARKER Unavailable Unavailable Ahmet Don PMH-BASTING MARKER Unavailable Unavailable Elizabeth MORRISON Unavailable Unavailable Eugenio Hernandes Unavailable Eugenio Hernandes Unavailable Peñaloza, Masha Unavailable Unavailable Peñaloza, Masha Unavailable Unavailable Peñaloza, Masha Unavailable Unavailable Peñaloza, Masha Unavailable Unavailable Peñaloza, Masha Unavailable Unavailable Peñaloza, Masha Unavailable Unavailable Peñaloza, Masha Unavailable Unavailable Peñaloza, Masha Unavailable Unavailable Peñaloza, Masha Unavailable Unavailable Peñaloza, Masha Unavailable Unavailable Peñaloza, Masha Unavailable Unavailable Peñaloza, Masha Unavailable Unavailable Peañloza, Masha Unavailable Unavailable Peñaloza, Masha Unavailable Unavailable [...] is protected by Article 27-F of the [facility] Public Health law. If you continue you may have access to information: Regarding HIV / AIDS; Provided by facilities licensed or operated by the [facility] Office of Mental Health; or Provided by the [facility] Office for People With Developmental Disabilities. If such information is present, then the following [facility] mandated warning applies: This information has [...] law may result in a fine or intermediate sentence or both. A general authorization for the release of medical or other information is NOT sufficient authorization for further disc losure. Allergies and Adverse Reactions Type Description Substance Reaction Status Data Source(s ) Propensity to adverse reactions to substance Ambien (zolpide m) Zolpidem tartrate 10 MG Oral Tablet [Ambien] Active [facility]) Drug Class NO KNOWN ALLERGIES NO KNOWN ALLERGIES [facility] Family History Family Member Name Family Member Gender Family Member Status Date o f Status Description Data Source(s) Unknown Unknown Problem [facility] ([facility] father Encounters Encounter Providers Location Date Indications Data Source(s ) Extended Individual Psychotherapy - 45 min Attender: Anthony yarbrough [facility] 12/31/2020 01:00:00 AM EST - 12/31/2020 01:00:00 AM EST [facility] ([facility]) Attender: Eugenio Hernandes 12/31/2020 12:00:00 AM EST [facility] ([facility]) [facility] 12/26/2020 02:00:00 AM EST - 12/26/2020 02:00:00 AM EST [facility] ([facility]) [facility] 12/26/2020 12: 00:00 AM EST [facility] ([facility]) Attender: Eugenio Hernandes 12/25/2020 12:00:00 AM EST [facility] ([facility]) [id number]"Psychotherapy Attender: Eugenio Hernandes [facility] 12/24/2020 02:00:00 AM EST - 12/24/2020 02:00:00 AM EST [facility] ([facility]) Attender: Eugenio Hernandes 12/03/2020 12:00:00 AM EST [facility] ([facility]) Extended Individual Psychotherapy - 45 min Attender: Anthony yarbrough [facility] 12/02/2020 03:00:00 AM EST - 12/02/2020 03:00:00 AM EST [facility] ([facility]) [place] [address] [address] 11/26/2020 12:00:00 AM EST eCW1 ([facility]) Extended Individual Psychotherapy - 45 min Attender: Anthony yarbrough [facility] 11/25/2020 03:00:00 AM EST - 11/25/2020 03:00:00 AM EST [facility] ([facility]) Attender: Eugenio Hernandes 11/25/2020 12:00:00 AM EST [facility] ([facility]) Attender: Eugenio Hernandes 11/19/2020 12:00:00 AM EST [facility] ([facility]) Extended Individual Psychotherapy - 45 min Attender: Anthony yarbrough [facility] 11/18/2020 01:00:00 AM EST - 11/18/2020 01:00:00 AM EST [facility] ([facility]) [facility]patient [facility]: [facility] 11/06/2020 01:30:00 AM EST - 11/06/2020 01:30:00 AM EST [facility] ([facility]) Attender: Saumya COOPERGALO 11/06/2020 12: 00:00 AM EST [facility] ([facility]) Attender: Eugenio Hernandes 11/05/2020 12:00:00 AM EST [facility] ([facility]) Extended Individual Psychotherapy - 45 min Attender: Anthony yarbrough [facility] 11/04/2020 03:00:00 AM EST - 11/04/2020 03:00:00 AM EST [facility] ([facility]) Unknown [address] [facility] [address] 11/01/2020 12:00:00 AM EST eCW1 ([facility]) Attender: Eugenio Hernandes 10/22/2020 12:00:00 AM EST [facility] ([facility]) Extended Individual Psychotherapy - 45 min Attender: Anthony yarbrough [facility] 10/21/2020 02:00:00 AM EST - 10/21/2020 02:00:00 AM EST [facility] ([facility]) Outpatient Attender: Masha Peñaloza 10/08/2020 12:00:00 AM [facility] Unknown [address] [facility] [place] [address] 10/04/2020 12:00:00 AM EST eCW1 ([facility]) Outpatient Attender: CHARLIE MORRISON [id number] 09/27/2020 12:00 :00 AM EST Morbid (severe) obesity due to excess calories [facility] Morbid (severe) obesity due to excess ca lories Outpatient 09/26/2020 12:00:00 AM EST [facility] Attender: Eugenio Hernandes 09/25/2020 12:00:00 AM EST [facility] ([facility]) Extended Individual Psychotherapy - 45 min Attender: Anthony yarbrough [facility] 09/24/2020 01:00:00 AM EST - 09/24/2020 01:00:00 AM EST [facility] ([facility]) [place] [address] [address] 09/11/2020 12:00:00 AM EDT eCW1 ([facility]) Extended Individual Psychotherapy - 45 min Attender: Anthony yarbrough [facility] 09/10/2020 02:00:00 AM EDT - 09/10/2020 02:00:00 AM EDT [facility] ([facility]) Attender: Eugenio Hernandes 09/10/2020 12:00:00 AM EDT [facility] ([facility]) [place] [address] [address] 08/28/2020 12:00:00 AM EDT eCW1 ([facility]) Outpatient Attender: Saumya Don PM-BASTING MARKER [facility] 08/27/2020 02:30:00 AM EDT - 08/27/2020 02:30:00 AM EDT [facility] ([facility]) Attender: Saumya VELÁSQUEZ-BASTING MARKER 08/27/2020 12: 00:00 AM EDT [facility] ([facility]) [place] [address] [address] 08/19/2020 12:00:00 AM EDT eCW1 ([facility]) Attender: Eugenio Hernandes 08/19/2020 12:00:00 AM EDT [facility] ([facility]) [id number]"Psychotherapy Attender: Eugenio Hernandes [facility] 08/16/2020 02:00:00 AM EDT - 08/16/2020 02:00:00 AM EDT [facility] ([facility]) Outpatient 08/09/2020 12:00:00 AM [facility] Outpatient Attender: Saum[facility]BAST[facility] MARK[facility] 05/14/2020 03:30:00 AM EDT - 05/14/2020 03:30:00 AM EDT [facility] ([facility]) [facility]: [facility] 05/14/2020 12: 00:00 AM EDT [facility] ([facility]) Outpatient Attender: Graciela MARCUS 04/23/2020 07:31:08 PM ED [place] [address] [address] 04/09/2020 12:00:00 AM EDT eCW1 ([facility]) [address] [place] [address] 02/29/2020 12:00:00 AM EDT [facility]CW1 [facility] Attender: Trung Holguin 02/28/2020 12:00:0 0 AM EDT [facility] ([facility]) TEMPMHCTelemed 20" psychotherapy Attender: Trung Bergeron [facility] 02/27/2020 03:00:00 AM EDT - 02/27/2020 03:00:00 AM EDT [facility] ([facility]) TEMPMHCTelemed 30" Psychotherapy Attender: Trung Bergeron [facility] 02/13/2020 03:00:00 AM EDT - 02/13/2020 03:00:00 AM EDT [facility] ([facility]) Attender: Trung Holguin 02/13/2020 12:00:0 0 AM EDT [facility] ([facility] [address] [facility] [address] 02/06/2020 12:00:00 AM EDT eCW1 ([facility]) Attender: Trung Holguin 01/31/2020 12:00:0 0 AM EDT [facility] ([facility]) TEMPMHCTelemed 30" Psychotherapy Attender: Trung Menjivarchidi jabier [facility] 01/30/2020 04:15:00 AM EDT - 01/30/2020 04:15:00 AM EDT [facility] ([facility]) [facility] [address] [facility] [address] 01/29/2020 12:00:00 AM EDT eCW1 ([facility]) [facility] [address] [facility] [address] 01/19/2020 12:00:00 AM EST eCW1 ([facility]) Outpatient Attender: Saumya COOPER-BASTING MARKER [facility] 01/16/2020 11:30:00 AM EST - 01/16/2020 11:30:00 AM EST [facility] ([facility]) Extended Individual Psychotherapy - 45 min Attender: Jonathon Gilliampérez [facility] 01/16/2020 04:00:00 AM EST - 01/16/2020 04:00:00 AM EST [facility] ([facility]) Attender: Trung Holguin 01/16/2020 12:00:0 0 AM EST [facility] ([facility]) Attender: Saumya COOPERH-BASTING MARKER 01/16/2020 12: 00:00 AM EST [facility] ([facility]) [facility] [address] [place] [address] 01/16/2020 12:00:00 AM EST eCW1 ([facility]) [facility] [address] [place] [address] 12/19/2019 12:00:00 AM EST eCW1 ([facility]) [facility] [address] [place] [address] 12/19/2019 12:00:00 AM EST eCW1 ([facility]) [facility] [address] [place] [address] 12/05/2019 12:00:00 AM EST eCW1 ([facility]) [facility] [address] [place] [address], [place] [address] 12/05/2019 12:00:00 AM EST eCW1 ([facility]) [address], [facility] [address] 11/30/2019 12:00:00 AM EST eCW1 ([facility]) Outpatient Attender: Saum[facility] Don [facility]-BASTING MARKER [facility] 11/17/2019 02:00:00 AM EST - 11/17/2019 02:00:00 AM EST [facility] ([facility]) Attender: Saumya VELÁSQUEZ-JUDITH 11/17/2019 12: 00:00 AM EST [facility] ([facility]) Attender: Trung Holguin 11/16/2019 12:00:0 0 AM EST [facility] ([facility]) Brief Individual Psychotherapy - 30 min Attender: Trung ortez [facility] 11/14/2019 03:00:00 AM EST - 11/14/2019 03:00:00 AM EST [facility] ([facility]) Functional Status Medications Medication Brand Name Start [...] AM EST 300 mg by mouth completed [id number] bupropion HCl by mouth [id number] 11/06/2020 every morning 300 mg tablet extended release 24 hr 32076 [id number] [id number] Saumya Don [id number] P sychiatric/Mental Health [facility] ([facility]) Trazodone Hydrochloride 50 MG Oral Tablet trazodone 2019 12:00:00 AM EST 50 mg by mouth completed 041207 trazodone by mouth C382 88 11/06/2020 at bedtime 50 mg tablet as needed 99221 [id number] Massimo Don [id number] Psychiatric/Mental Health [facility] ([facility]) 10 mg 11/06/2020 12:00:00 AM EST tablet 30 TAKE ONE TABLET BY MOUTH EVERY DAY TAKE ONE TABLET BY MOUTH EVERY DAY SOLD: 12/09/2020 [facility] Trazodone Hydrochloride 50 MG Oral Tablet trazodone 2019 12:00:00 AM EST 50 mg by mouth completed 649228 trazodone by mouth C382 88 11/06/2020 at bedtime 50 mg tablet as needed 63187 [id number] Massimo monsivaispavan Arian [id number] Psychiatric/Mental Health [facility] ([facility]) 24 HR Bupropion Hydrochloride 300 MG Extended Release Oral T ablet BUPROPION HCL 11/06/2020 12:00:00 AM EST tablet extended release 24 hr 30 TAKE ONE TABLET BY MOUTH EVERY MORNING TAKE ONE TABLET BY MOUTH EVERY MORNING SOLD: 12/14/2020 [facility] aripiprazole 10 MG Oral Tablet aripiprazole 11/06/2020 12:00:00 AM ES T 10 mg by mouth completed 076621 aripiprazole by mouth [id number] 1 01/07/2020 once a day 10 mg tablet 99684 [id number] Saumya brooks [id number] Psychiatric/Mental Health [facility] ([facility]) 50 mg 11/06/2020 12:00:00 AM EST tablet 30 TAKE ONE TABLET BY MOUTH EVERY DAY AT BEDTIME NEEDED TAKE ONE TABLET BY MOUTH EVERY DAY AT [facility] NEEDED SOLD: 11/07/2020 [facility] aripiprazole 10 MG Oral Tablet aripiprazole 11/06/2020 12:00:00 AM ES T 10 mg by mouth completed 509384 aripiprazole by mouth G03691 1 01/07/2020 once a day 10 mg tablet 82925 [id number] Saumya brooks [id number] Psychiatric/Mental Health [facility] ([facility]) 10 mg 11/06/2020 12:00:00 AM EST tablet 30 TAKE ONE TABLET BY MOUTH EVERY DAY TAKE ONE TABLET BY MOUTH EVERY DAY SOLD: 11/07/2020 [facility] Prazosin 5 MG Oral Capsule prazosin 11/06/2020 12:00:00 AM EST 5 mg by mouth completed 675176 prazosin by mouth [id number] 11/06/2020 at bedtime 5 mg capsule 14258 [id number] Maricruz Vizcarra [id number] Nurse Practitioner [facility] ([facility]) 5 mg 11/06/2020 12:00:00 AM EST capsule 50 TAKE TWO CAPSULES BY MOUTH EVERY DAY AT BEDTIME TAKE TWO CAPSULES BY MOUTH EVERY DAY AT BEDTIME SOLD: 2019 [facility] Prazosin 5 MG Oral Capsule prazosin 11/06/2020 12:00:00 AM EST 5 mg by mouth completed 964387 prazosin by mouth [id number] 11/06/2020 at bedtime 5 mg capsule 05506 079684 [id number] Maricruz Vizcarra [id number] Nurse Practitioner [facility] ([facility]) 24 HR Bupropion Hydrochloride 150 MG Extended [...] Ortho Tri-Cyclen Lo 0.18/0.215/0.25 MG-25 MCG eCW1 ([facility]) Ortho Tri-Cyclen Lo 0.18/0.215/0.25 MG-25 MCG UNK 08/28/20 12:00:00 AM EDT 1.0 {tablet} active Ortho Tri-Cyclen Lo 0.18/0.215/0.25 MG-25 MCG eCW1 ([facility]) Ortho Tri-Cyclen Lo 0.18/0.215/0.25 MG-25 MCG UNK 08/28/20 12:00:00 AM EDT 1.0 {tablet} active Ortho Tri-Cyclen Lo 0.18/0.215/0.25 MG-25 MCG eCW1 ([facility]) Ortho Tri-Cyclen Lo 0.18/0.215/0.25 MG-25 MCG UNK 08/28/20 12:00:00 AM EDT 1.0 {tablet} active Ortho Tri-Cyclen Lo 0.18/0.215/0.25 MG-25 MCG eCW1 ([facility]) Ortho Tri-Cyclen Lo 0.18/0.215/0.25 MG-25 MCG UNK 08/28/20 12:00:00 AM EDT 1.0 {tablet} active Ortho Tri-Cyclen Lo 0.18/0.215/0.25 MG-25 MCG eCW1 ([facility]) Ortho Tri-Cyclen Lo 0.18/0.215/0.25 MG-25 MCG UNK 08/28/20 12:00:00 AM EDT 1.0 {tablet} active Ortho Tri-Cyclen Lo 0.18/0.215/0.25 MG-25 MCG eCW1 ([facility]) 50 mcg 08/22/2020 12:00:00 AM EDT [...] {tablet_in_the_morning} acti ve Hydrochlorothiazide 12.5 MG eCW1 ([facility]) Hydrochlorothiazide 12.5 MG Oral Tablet Hydrochlorothiazide 12.5 MG 08/19/2020 12:00:00 AM EDT 1.0 {tablet_in_the_morning} susp ended Hydrochlorothiazide 12.5 MG eCW1 ([facility]) Hydrochlorothiazide 12.5 MG Oral Tablet Hydrochlorothiazide 12.5 MG 08/19/2020 12:00:00 AM EDT 1.0 {tablet_in_the_morning} acti ve Hydrochlorothiazide 12.5 MG eCW1 ([facility]) Hydrochlorothiazide 12.5 MG Oral Tablet Hydrochlorothiazide 12.5 MG 08/19/2020 12:00:00 AM EDT 1.0 {tablet_in_the_morning} acti ve Hydrochlorothiazide 12.5 MG eCW1 ([facility]) Hydrochlorothiazide 12.5 MG Oral Tablet Hydrochlorothiazide 12.5 MG 08/19/2020 12:00:00 AM EDT 1.0 {tablet_in_the_morning} acti ve Hydrochlorothiazide 12.5 MG eCW1 ([facility]) Hydrochlorothiazide 12.5 MG Oral Tablet Hydrochlorothiazide 12.5 MG 08/19/2020 12:00:00 AM EDT 1.0 {tablet_in_the_morning} acti ve Hydrochlorothiazide 12.5 MG eCW1 ([facility]) [facility] Carbon[facility] 300 MG Oral Capsule lithium carbonate 12:00:00 AM EDT 300 mg by mouth completed [id number] lithium car bonate by mouth [id number] 08/15/2020 at bedtime 300 mg capsule 07709 854811 [id number] Devin Hoskins [id number] Psychiatry [facility] ([facility]) 300 mg 08/15/2020 12:00:00 AM EDT capsule [...] AM EDT 150 mg by mouth completed 084372 bupropion HCl by mouth [id number] 08/15/2020 once a day 150 mg tablet ex tended release 24 hr 82422 225708 [id number] Saumya Don [id number] P sychiatric/Mental Health [facility] ([facility]) 300 mg 08/15/2020 12:00:00 AM EDT capsule 30 TAKE ONE CAPSULE BY MOUTH EVERY DAY AT BEDTIME TAKE ONE CAPSULE BY MOUTH EVERY DAY AT BEDTIME SOLD: [facility] 24 HR Bupropion Hydrochloride 150 MG Extended Release Oral T ablet bupropion HCl 08/15/2020 12:00:00 AM EDT 150 mg by mouth completed 971778 bupropion HCl by mouth [id number] 08/15/2020 once a day 150 mg tablet ex tended release 24 hr 17763 [id number] Saumya Don [id number] P sychiatric/Mental Health [facility] ([facility]) 24 HR Bupropion Hydrochloride 300 MG Extended Release Oral T ablet bupropion HCl 08/15/2020 12:00:00 AM EDT 300 mg by mouth completed 282825 bupropion HCl by mouth [id number] 08/15/2020 10/14/2020 once a day 30 300 mg tablet extended release 24 hr 02830 874851 [id number] Devin Hoskins [id number] Psychi atry [facility] ([facility]) 24 HR Bupropion Hydrochloride 300 MG Extended Release Oral T ablet BUPROPION HCL 08/15/2020 12:00:00 AM EDT tablet extended release 24 hr 30 TAKE ONE TABLET BY MOUTH EVERY DAY TAKE ONE TABLET BY MOUTH EVERY DAY SOLD: 09/16/2020 [facility] 300 MG Oral Capsule lithium carbonate 12:00:00 AM EDT 300 mg by mouth completed 065228 lithium car bonate by mouth R49072 08/15/2020 at bedtime 300 mg capsule 40273 084097 [id number] Devin Hoskins [id number] Psychiatry [facility] ([facility]) 24 HR Bupropion Hydrochloride 300 MG Extended [...] AM EDT 120 mg by mouth completed [id number] Latuda by mout h [id number] 04/25/2020 10/14/2020 once a day 30 120 mg tablet 68996 [id number] Devin Hoskins [id number] Psychiatry [facility] ([facility]) Lurasidone Hydrochloride 120 MG Oral Tablet [Latuda] Latuda 04/25/2020 12:00:00 AM EDT 120 mg by mouth completed [id number] Latuda by mout h [id number] 04/25/2020 06/24/2020 once a day 30 120 mg tablet 48136 163269 [id number] Saumya Don [id number] Psychiatric/Mental Health [facility]) 300 mg 04/24/2020 12:00:00 AM EDT tablet [...] 02/23/2020 12:00:00 AM EDT 20 mg completed [id number] Latuda 02/23/2020 30 20 mg tablet 82742 081540 [id number] Samuya Don [id number] P sychiatric/Mental Health [facility] ([facility]) 20 mg 02/23/2020 12:00:00 AM EDT tablet [...] 02/23/2020 12:00:00 AM EDT 20 mg completed [id number] Latuda 02/23/2020 30 20 mg tablet 86305 947411 [id number] Saumya Don [id number] P sychiatric/Mental Health [facility] ([facility]) 300 mg 02/05/2020 12:00:00 AM EDT capsule [...] 01/26/2020 12:00:00 AM EDT 150 mg completed [id number] bupropion HCl 01/26/2020 30 150 mg tablet extended release 24 hr 16643 783538 [id number] Saumya Don [id number] Psychiatric/Mental Health [facility] ([facility]) 5 mg 01/26/2020 12:00:00 AM EDT capsule [...] MOUTH EVERY DAY SOLD: 02/26/2020 [facility] Carbon[facility] 300 MG Oral Capsule lithium carbonate 12:00:00 AM EDT 300 mg completed [id number] lithium carbonate 30 300 mg capsule 71081 097397 [id number] Saumya Don [id number] Psychiatric/Mental Health [facility] ([facility]) Prazosin 5 MG Oral Capsule prazosin 01/26/2020 12:00:00 AM EDT 5 mg completed [id number] prazosin 01/26/2020 30 5 mg capsule 62777 305834 [id number] Saumya Don [id number] Psychiatric/Mental Health [facility] ([facility]) 24 HR Bupropion Hydrochloride 300 MG Extended Release Oral T ablet bupropion HCl 01/26/2020 12:00:00 AM EDT 300 mg completed [id number] bupropion HCl 01/26/2020 07/24/2020 30 300 mg tablet extended release 24 hr 95865 305476 [id number] Saumya Don [id number] Psychiatric/Mental Health [facility] ([facility]) 5 mg 01/26/2020 12:00:00 AM EDT capsule 60 TAKE TWO CAPSULES BY MOUTH AT BEDTIME TAKE TWO CAPSULES BY MOUTH AT BEDTIME SOLD: 04/06/2020 [facility] 24 HR Bupropion Hydrochloride 150 MG Extended Release Oral T ablet bupropion HCl 01/26/2020 12:00:00 AM EDT 150 mg completed [id number] bupropion HCl 01/26/2020 07/24/2020 30 150 mg tablet extended release 24 hr 44135 575393 [id number] Saumya Don [id number] Psychiatric/Mental Health [facility] ([facility]) 300 mg 01/26/2020 12:00:00 AM EDT tablet extended release 24 hr 30 TAKE ONE TABLET BY MOUTH EVERY MORNING TAKE ONE TABLET BY MOUTH EVERY MORNING SOLD: 03/22/2020 [facility] Prazosin 5 MG Oral Capsule prazosin 01/26/2020 12:00:00 AM EDT 5 mg completed [id number] prazosin 01/26/2020 30 5 mg capsule 83334 988394 [id number] Saumya Don [id number] Psychiatric/Mental Health [facility] ([facility]) 24 HR Bupropion Hydrochloride 150 MG Extended Release Oral T ablet bupropion HCl 01/26/2020 12:00:00 AM EDT 150 mg completed [id number] bupropion HCl 01/26/2020 30 150 mg tablet extended release 24 hr 01624 360522 [id number] Saumya Don [id number] Psychiatric/Mental Health [facility] ([facility]) 24 HR Bupropion Hydrochloride 300 MG Extended Release Oral T ablet bupropion HCl 01/26/2020 12:00:00 AM EDT 300 mg completed [id number] bupropion HCl 01/26/2020 30 300 mg tablet extended release 24 hr 02289 928735 [id number] Saumya Don [id number] Psychiatric/Mental Health [facility] ([facility]) [facility] Carbonate 300 MG Oral Capsule lithium carbonate 12:00:00 AM EDT 300 mg completed [id number] lithium carbonate 01/26/2020 07/24/2020 30 300 mg capsule 44549 760737 [id number] Nya Don [id number] Psychiatric/Mental Health [facility] ([facility]) 24 HR Bupropion Hydrochloride 150 MG Extended Release Oral T ablet BUPROPION HCL 01/26/2020 12:00:00 AM EDT tablet extended release 24 hr 30 TAKE ONE TABLET BY MOUTH EVERY DAY TAKE ONE TABLET BY MOUTH EVERY DAY SOLD: 01/28/2020 [facility] Prazosin 5 MG Oral Capsule prazosin 01/26/2020 12:00:00 AM EDT 5 mg completed [id number] prazosin 01/26/2020 30 5 mg capsule 03427 064677 [id number] Saumyaanthony Don [id number] Psychiatric/Mental Health [facility] ([facility]) 5 mg 01/26/2020 12:00:00 AM EDT capsule 60 TAKE TWO CAPSULES BY MOUTH AT BEDTIME TAKE TWO CAPSULES BY MOUTH AT BEDTIME SOLD: 02/26/2020 [facility] Prazosin 5 MG Oral Capsule prazosin 01/26/2020 12:00:00 AM EDT 5 mg completed [id number] prazosin 01/26/2020 07/24/2020 30 5 mg capsule 09371 334861 [id number] Saumyaester Don [id number] Psychiatric/Mental Health [facility] ([facility]) 24 HR Bupropion Hydrochloride 300 MG Extended Release Oral T ablet bupropion HCl 01/26/2020 12:00:00 AM EDT 300 mg completed [id number] bupropion HCl 01/26/2020 30 300 mg tablet extended release 24 hr 71196 353519 [id number] Saumyaester Don [id number] Psychiatric/Mental Health [facility] ([facility]) 300 mg 01/26/2020 12:00:00 AM EDT tablet extended release 24 hr 30 TAKE ONE TABLET BY MOUTH EVERY MORNING TAKE ONE TABLET BY MOUTH EVERY MORNING SOLD: 02/26/2020 [facility] 300 MG Oral Capsule lithium carbonate 12:00:00 AM EDT 300 mg completed [id number] lithium carbonate 30 300 mg capsule 06150 043432 [id number] Saumyaester Don [id number] Psychiatric/Mental Health [facility] ([facility]) 300 mg 01/26/2020 12:00:00 AM EDT tablet [...] AM EST 20 mg by mouth completed [id number] Latuda by mouth [id number] 01/19/2020 02/18/2020 once a day 30 20 mg tablet 91995 672052 [id number] Saumya Don [id number] [facility] Lurasidone Hydrochloride 20 MG Oral Tablet [Latuda] Latuda 01/19/2020 12:00:00 AM EST 20 mg by mouth completed [id number] Latuda by mouth [id number] 01/19/2020 02/18/2020 once a day 30 20 mg tablet 34375 394263 [phone] [id number] Saumya Don [id number] Psychiatric/Mental Health [facility]) 120 mg 12/30/2019 12:00:00 AM EST tablet 30 TAKE ONE TABLET BY MOUTH EVERY MORNING DIRECTED WITH 20 MG TAKE ONE TABLET BY MOUTH EVERY MORNING A S DIRECTED WITH 20 MG SOLD: 01/01/2020 [facility] Lurasidone Hydrochloride 120 MG Oral Tablet [Latuda] Latuda 12/29/2019 12:00:00 AM EST 120 mg by mouth completed [id number] Latuda by mout h [id number] 12/29/2019 02/18/2020 every morning 30 120 mg tablet as directed 7415 9 [id number] Saumya Don [id number] [facility] Lurasidone Hydrochloride 120 MG Oral Tablet [Latuda] Latuda 12/29/2019 12:00:00 AM EST 120 mg by mouth completed [id number] Latuda by mout h [id number] 12/29/2019 02/18/2020 every morning 30 120 mg tablet as directed 7415 9 [id number] Saumya Don [id number] [facility] ([facility]) 0.25-35 mg-mcg 12/21/2019 12:00:00 AM EST tablet [...] EVERY EVENING WITH MEALS SOLD : 11/29/2019 [facility] Prazosin 5 MG Oral Capsule prazosin 10/27/2019 12:00:00 AM EST 5 mg by mouth completed [id number] prazosin by mouth [id number] 10/27/201910/2020 at bedtime 30 5 mg capsule 99821 084504 [id number] Saumyaester Don [id number] [facility]) Prazosin 5 MG Oral Capsule prazosin 10/27/2019 12:00:00 AM EST 5 mg by mouth completed [id number] prazosin by mouth [id number] 10/27/201910/2020 at bedtime 30 5 mg capsule 92902 086525 [id number] Saumyaester Don [id number] [facility] ([facility]) Prazosin 5 MG Oral Capsule prazosin 10/27/2019 12:00:00 AM EST 5 mg by mouth completed [id number] prazosin by mouth [id number] 10/27/201910/2020 at bedtime 30 5 mg capsule 46506 454115 [id number] Saumyaanthony Don [id number] [facility] ([facility]) Lurasidone Hydrochloride 120 MG Oral Tablet [Latuda] Latuda 10/27/2019 12:00:00 AM EST 120 mg by mouth completed [id number] Latuda by mout h [id number] 10/27/2019 12/26/2019 every evening 30 120 mg tablet with meals 53886 418434 [id number] Saumya Don [id number] [facility] Lurasidone Hydrochloride 120 MG Oral Tablet [Latuda] Latuda 10/27/2019 12:00:00 AM EST 120 mg by mouth completed [id number] Latuda by mout h [id number] 10/27/2019 12/26/2019 every evening 30 120 mg tablet with meals 03144 [id number] Saumya Don [id number] [facility]) 24 HR Bupropion Hydrochloride 150 MG Extended Release Oral T ablet bupropion HCl 10/27/2019 12:00:00 AM EST 150 mg by mouth completed [id number] bupropion HCl by mouth [id number] 10/27/2019 01/25/2020 once a day 30 150 mg tablet extended release 24 hr 39159 122427 [id number] Saumya Don [id number] [facility] ([facility]) 24 HR Bupropion Hydrochloride 150 MG Extended Release Oral T ablet bupropion HCl 10/27/2019 12:00:00 AM EST 150 mg by mouth completed [id number] bupropion HCl by mouth [id number] 10/27/2019 01/25/2020 once a day 30 150 mg tablet extended release 24 hr 86241 [id number] Saumya Arian [id number] [facility] ([facility]) Nystatin 100 UNT/MG Topical Powder 100,000 unit/gram [facility] N 05/13/2019 12:00:00 AM EDT powder 15 APPLY TO AFFECTED AREA TW O TIMES A DAY APPLY TO AFFECTED AREA TWO TIMES A DAY SOLD: 12/21/2019 [facility] Insurance Providers Payer name Policy type / Coverage type Policy ID Covered libertarian ID Covered libertarian's relationship to fuentes Policy Fuentes Plan Information EMEDNY [id number] SP [id number] [facility]LY [facility] COMMUNITY PLAN [facility] [id number] SP [id number] [facility] [id number] Self [id number] EMNY [id number] SP [id number] [facility]LY [facility] COMMUNITY PLAN [facility] [id number] SP [id number] Self Pay P none S none MEDICAID [id number] SP [id number] [place] 020/520 [id number] SP [id number] [facility] [id number] SP [id number] MEDICAID [facility] [id number] SP [id number] BLUE CROSS [id number] SP [id number] SELF PAY [place] 020/520 [id number] SP [id number] [facility] [id number] SP [id number] BCBS [place] PPO 302/307 [id number] SP [id number] SELF PAY MEDICAID [facility] [id number] SP [id number] BLUE CROSS [id number] SP [id number] ANSI-Medicaid [id number] ANSI-Medicaid [id number] ANSI-Medicaid [id number] ANSI-Medicaid [id number] ANSI-Medicaid [id number] ANSI-Medicaid [id number] [facility] COMMUNITY PLAN [id number] SP [id number] BLUE CROSS [id number] SP [id number] ANSI-Medicaid [id number] ANSI-Medicaid [id number] Self Pay P UNAVAILABLE S [facility] O [id number] S [id number] ANSI-Medicaid [id number] ANSI-Medicaid [id number] ANSI-Medicaid [id number] ANSI-Medicaid [id number] ANSI-Medicaid [id number] ANSI-Medicaid [id number] ANSI-Medicaid [id number] ANSI-Medicaid [id number] ANSI-Medicaid [id number] ANSI-Medicaid [id number] ANSI-Medicaid [id number] ANSI-Medicaid [id number] ANSI-Medicaid [id number] ANSI-Medicaid [id number] ANSI-Medicaid [id number] ANSI-Medicaid [id number] [facility] [id number] SP [id number] [facility] O [id number] S [id number] [facility] Health Maintenance Organization (HMO) [id number] Self [id number] UNAVAILABLE UNAVAILA BLE SELF PAY UNAVAILABLE UNAVAILA BLE MEDICAID [id number] [facility] OFFICE OF MENTAL HEALTH [id number] S [id number] [facility] OFFICE OF MENTAL HEALTH [id number] S [id number] [facility] O [id number] S [id number] D [facility] S [id number] S [id number] BLUE CROSS [place] PLAN [id number] SP [id number] O BLUE [id number] SP [id number] O BLUE [id number] SP [id number] Problems, Conditions, and Diagnoses Code Display Name Description Problem Type Effective Dates Data Source(s) F31.9 Bipolar disorder, unspecified Unspecified Bipola r and Related Disorder Condition 12/31/2020 12:00:00 AM EST [facility] ([facility]) F43.12 Post-traumatic stress disorder, chronic Post-traumatic stress disorder, chronic Condition 12/31/2020 12:00:00 AM EST [facility] ([facility]) E78.2 Mixed hyperlipidemia Mixed hyperlipidemia Problem 08/19/2020 12:00:00 AM EDT eCW1 ([facility]) Z71.3 Dietary counseling and surveillance Dietary coun seling and surveillance Diagnosis 09/27/2020 08:41:31 AM [facility] Z68.44 Body mass index (BMI) 60.0-69.9, adult B tono mass index (BMI) 60.0-69.9, adult Diagnosis 09/27/2020 08:41:31 AM [facility] E66.01 Morbid (severe) obesity due to excess ca lories Morbid (severe) obesity due to excess calories Diagnosis 09/27/2020 08:41:31 AM [facility] Surgeries/Procedures Procedure Description Date Indications Data Source(s) Extended Individual Psychotherapy - 45 min 12/31/2020 12:00:00 AM EST - 12/31/2020 12:00:00 AM EST [facility] ([facility]) Extended Individual Psychotherapy - 45 min 12:00:00 AM EST [facility] ([facility]) [facility] Telemed E/M Lvl 3--Est pt 12/26/2020 12:00:00 AM EST - 12/26/2020 12:00:00 AM EST [facility] ([facility]) Telemed A/O 30" 12/26/2020 12:00:00 AM EST [facility] ([facility]) [facility] Telemed E/M Lvl 3--Est pt 12/26/2020 12:00:[address] [facility] ([facility]) [id number]"Psychotherapy 12:00:00 AM EST - 12/25/2020 12:00:00 AM EST [facility] ([facility]) [id number]"Psychotherapy 12/24/2020 12:00:00 AM EST [facility] ([facility]) Extended Individual Psychotherapy - 45 min 12/03/2020 12:00:00 AM EST - 12/03/2020 12:00:00 AM EST [facility] ([facility]) Extended Individual Psychotherapy - 45 min 1 12:00:00 AM EST [facility] ([facility]) Extended Individual Psychotherapy - 45 min 11/25/2020 12:00:00 AM EST - 11/25/2020 12:00:00 AM EST [facility] ([facility]) Extended Individual Psychotherapy - 45 min 12:00:00 AM EST [facility] ([facility]) Extended Individual Psychotherapy - 45 min 11/19/2020 12:00:00 AM EST - 11/19/2020 12:00:00 AM EST [facility] ([facility]) Extended Individual Psychotherapy - 45 min 12:00:00 AM EST [facility] ([facility]) OFFICE OUTPATIENT VISIT 15 MINUTES 11/06 12:00:00 AM EST - 11/06/2020 12:00:00 AM EST [facility] ([facility]) Psychotherapy ADD ON - 30 Minutes 11/06/2020 12:00:00 AM EST [facility] ([facility]) OFFICE OUTPATIENT VISIT 15 MINUTES 11/06/2020 12:00:00 AM EST [facility] ([facility]) Extended Individual Psychotherapy - 45 min 11/05/2020 12:00:00 AM EST - 11/05/2020 12:00:00 AM EST [facility] ([facility]) Extended Individual Psychotherapy - 45 min 0 12:00:00 AM EST [facility] ([facility]) Extended Individual Psychotherapy - 45 min 10/22/2020 12:00:00 AM EST - 10/22/2020 12:00:00 AM EST [facility] ([facility]) Extended Individual Psychotherapy - 45 min 0 12:00:00 AM EST [facility] ([facility]) Extended Individual Psychotherapy - 45 min 09/25/2020 12:00:00 AM EST - 09/25/2020 12:00:00 AM EST [facility] ([facility]) Extended Individual Psychotherapy - 45 min 0 12:00:00 AM EST [facility] ([facility]) Extended Individual Psychotherapy - 45 min 09/10/2020 12:00:00 AM EDT - 09/10/2020 12:00:00 AM EDT [facility] ([facility]) Extended Individual Psychotherapy - 45 min 0 12:00:00 AM EDT [facility] ([facility]) MHC Telemed E/M Lvl 3--Est pt 08/27/2020 12:00:00 AM EDT - 08/27/2020 12:00:00 AM EDT [facility] ([facility]) Telemed A/O 30" 08/27/2020 12:00:00 AM EDT [facility] ([facility]) MHC Telemed E/M Lvl 3--Est pt 08/27/2020 12:00:00 AM E DT [facility] ([facility]) ECG ROUTINE ECG W/LEAST 12 LDS W/I&R 08/19/2020 12:00: 00 AM EDT eCW1 ([facility]) [id number]"Psychotherapy 0 12:00:00 AM EDT - 08/19/2020 12:00:00 AM EDT [facility] ([facility]) [id number]"Psychotherapy 08/16/2020 12:00:00 AM EDT [facility] ([facility]) MHC Telemed E/M Lvl 3--Est pt 05/14/2020 12:00:00 AM EDT - 05/14/2020 12:00:00 AM EDT [facility] ([facility]) Telemed A/O 30" 05/14/2020 12:00:00 AM EDT [facility] ([facility]) MHC Telemed E/M Lvl 3--Est pt 05/14/2020 12:00:00 AM E DT [facility] ([facility]) TEMPMHCTelemed 20" psychotherapy 12:00:00 AM EDT - 02/28/2020 12:00:00 AM EDT [facility] ([facility]) TEMPMHCTelemed 20" psychotherapy 02/27/2020 12:00:00 A M EDT [facility] ([facility]) TEMPMHCTelemed 30" Psychotherapy 12:00:00 AM EDT - 02/13/2020 12:00:00 AM EDT [facility] ([facility]) TEMPMHCTelemed 30" Psychotherapy 02/13/2020 12:00:00 A M EDT [facility] ([facility]) TEMPMHCTelemed 30" Psychotherapy 12:00:00 AM EDT - 01/31/2020 12:00:00 AM EDT [facility] ([facility]) TEMPMHCTelemed 30" Psychotherapy 01/30/2020 12:00:00 A M EDT [facility] ([facility]) Extended Individual Psychotherapy - 45 min 01/16/2020 12:00:00 AM EST - 01/16/2020 12:00:00 AM EST [facility] ([facility]) Extended Individual Psychotherapy - 45 min 0 12:00:00 AM EST [facility] ([facility]) OFFICE OUTPATIENT VISIT 15 MINUTES 01/15 12:00:00 AM EST - 01/16/2020 12:00:00 AM EST [facility] ([facility]) OFFICE OUTPATIENT VISIT 15 MINUTES 01/16/2020 12:00:00 AM EST [facility] ([facility]) OFFICE OUTPATIENT VISIT 15 MINUTES 11/17 12:00:00 AM EST - 11/17/2019 12:00:00 AM EST [facility] ([facility]) OFFICE OUTPATIENT VISIT 15 MINUTES 11/17/2019 12:00:00 AM EST [facility] ([facility]) Brief Individual Psychotherapy - 30 min 11/16/2019 12:00:00 AM EST - 11/16/2019 12:00:00 AM EST [facility] ([facility]) Brief Individual Psychotherapy - 30 min 11/14/2019 12: 00:00 AM EST [facility] ([facility]) Results ID Date Data Source [id number] 12/30/2020 12:59:00 PM EST [facility] Name Value Range Interpretation Code Description Data Lisa rce(s) Supporting Document(s) SARS coronavirus 2 RNA [Presence] in Res piratory specimen by CHUCK with probe detection NEGATIVE [facility] This lab was ordered by [facility] a nd reported by [facility]. ID Date Data Source [id number] 09/27/2020 03:56:39 PM EST [facility] Name Value Range Interpretation Code Description Data Lisa rce(s) Supporting Document(s) Progress Note [facility] XGLSKm5fEdGQIzEh93/BIDvnAWFbm6KjGAfhJPy4DFgqPLVcE6XsSRN4vI9kUVY5EXwOYbQcVfZzUMZj [facility] [file] ICAgICAgICAgICAgICAgICAgICAgICAgICAgICAgICAgICAgICAgICAgICAgICAgICAgICAgICAgICAg ICAgICAgICAgICAgICAgICAgICAgICAgICAgICAgIC AgICAgICAgDQogICAgICAgICAgICAgICAgICAgICAgICAgICAgICAgICAgICAgICAgICAgICAgICAgIC AgICAgICAgICAgICAgICAgICAgICAgICAgICAgICAgICAgICAgICAgICAgICAgICAgDQogICAgICAgIC AgICAgICAgICAgICAgICAgICAgICAgICAgICAgICAg ICAgICAgICAgICAgICAgICAgICAgICAgICAgICAgICAgICAgICAgICAgICAgICAgICAgICAgICAgICAg DQogICAgICAgICAgICAgICAgICAgICAgICAgICAgICAgICAgICAgICAgICAgICAgICAgICAgICAgICAg ICAgICAgICAgICAgICAgICAgICAgICAgICAgICAgIC AgICAgICAgICAgDQogICAgICAgICAgICAgICAgICAgICAgICAgICAgICAgICAgICAgICAgICAgICAgIC AgICAgICAgICAgICAgICAgICAgICAgICAgICAgICAgICAgICAgICAgICAgICAgICAgICAgDQogICAgIC AgICAgICAgICAgICAgICAgICAgICAgICAgICAgICAg ICAgICAgICAgICAgICAgICAgICAgICAgICAgICAgICAgICAgICAgICAgICAgICAgICAgICAgICAgICAg ICAgDQogICAgICAgICAgICAgICAgICAgICAgICAgICAgICAgICAgICAgICAgICAgICAgICAgICAgICAg ICAgICAgICAgICAgICAgICAgICAgICAgICAgICAgIC AgICAgICAgICAgICAgDQogICAgICAgICAgICAgICAgICAgICAgICAgICAgICAgICAgICAgICAgICAgIC AgICAgICAgICAgICAgICAgICAgICAgICAgICAgICAgICAgICAgICAgICAgICAgICAgICAgICAgDQogIC AgICAgICAgICAgICAgICAgICAgICAgICAgICAgICAg ICAgICAgICAgICAgICAgICAgICAgICAgICAgICAgICAgICAgICAgICAgICAgICAgICAgICAgICAgICAg ICAgICAgDQogICAgICAgICAgICAgICAgICAgICAgICAgICAgICAgICAgICAgICAgICAgICAgICAgICAg ICAgICAgICAgICAgICAgICAgICAgICAgICAgICAgIC BaIIIoKPRgGFSbHGTuJKXaVAy5R9hvUDDqWWRnJD7aEAs7Hf2+RZfINtGmTTJ0laVpfW3FHF3nl7EnUM isDOQko1WoTEo3HS3EQFHdBOpkES2INZrlgg6MGIJaWIAhfSXGm7ewNfIwDTQ1FHNwPybrCN1MKNFpP0 gpbyRwDFSdRNIGFB8YMoNmV6TioR02NUTZPc4+DQpl fbCpEvnYOiTxNNTtf2QhATy3QH0EQIHwSqbub6QfKvYhFWEHEBqtVT8OPOR3QLMpCPJvJy8ULNNoW549 tvSvWX0JHf5ODaWvXL8bcu6OZqNgRDEzNxcHVmi1FUhaXT2XvCTtJYeRtd3xwbRghuPDi3EdrmIbrUQL MMWizNEeEUCNHVL0dB7pYOUENFDFRY4sEFFyXLDsHN BkNuVzSCGmZxtiVDHPSVmHJgNfK1Wls1IbSaL8RYCoFvJsINstHHTjZpT9IJ43mPqtVM3BOXJsAFAwQZ 84OFBvBKDwLh4CFs9YTmMqEG9fgn6TJkKoETCnYcuNYnq0KAgjWB7TfNGfA7DytIKns1xDUpZhH1SAFL GgEZPcZo6RGRMyAtMiOFGwQHceEX2gZRGnKUSLpYyz yfN7FV2QXC2ujiSwVJ7LRfHiYx9mSd4OSyNqF7LlR2XkQCWbJRPOUGwvDM4KIQvlZA1rYS1Yw4IAjLNa cJ4xdg0LXASlHEDxOrwqrq5PAucvX9X0rUrrCQAyKiAfNAKQDWoyBI8AZCBxYWL9DQGgILNwCHFFArNk O93rYT8BB5Nko41mWrB3OZMeZbIwRTteJW61qAsejt MraJHvuJajWN3CDd0+CDuenvZdIcpJZdagWVIZEhWcYxNLRpIgWBMwLLNwMMOxCuB1UrGjKh8GYNKeQC YtRXExGjJuKDVwXZIgTFvbWGDeEIEgGtt8OWDpTXEjZK1ARoNkRVIzQjAfJehkFQAaDPNpvi5CZJQcQQ EaQPL9GbBjPHQsCJPyWWvaZVEeRUIgZJL3JVSiWMFi TK2CDiOgJTBuVWYpUxavJKLgMTMfdb8MVMWmDGQzPQj4KjRrWMYtNTEuFTfpOMCoJTE5WTyxMNZnNUGu FI3AErAhNGWnPRPiUtSvOSFaYUZsar9BYUMlACAjLpZwBDHxYIQbCEFyJYmaVDUiUCX4YMRnPSLkIBKg HL2AWcQcXKKcXKQ1ABWbUKWjYSNkzx3QVOKbDWKdKM L4OODpCGIhIQJzSByqNTLeGNG5DihpNLXyBKMpMF1HJwSoKCEgHZv7FJZmQPItAREzhn7CQZRoHROhAT wzLDIcEMYfXAZgMBhsDJXbHSM8RZo3SGXsNGEhTM0FSlEyXUAbZMc3QkAuGSSsHULrtp1ICUXrCHStVG EdUDYoWQWwDPSuOFotDMOkVSRtRrvdMZLiQGUsTO5U ZdMjAIVdTeK8FGnbRPUbZQLvew7EFNTtZUIfRbSvHlQmTRLhTTJcMZjwNGVeBTPcETw3YJVqCEArJB7U IwUuNKDgAtJeAUMbXJAnKDLdmg1IaTInoQsend2RGKtCHd1HdAumXJZ9NOziTx3voHIpNHNbSINEOn2B txUaZJTePUKQDEdmXXGpSKB4DHKfLPUiQWmjPDhmFA UcUGW0YpZgYazzZpIbZOBpAyF2EaWfPlC0VJNdGZVzOYQ6WAGvEDorE7VbE5ImSqN2UzE+OH2tEAd+Pg 3Hn5QyahF3tfUeJZreYcZ4Xl4WUUIAN1CPEb== ID Date Data Source CHLAMYDIA & GC DNA AMPLIFICAT 09/05/2020 03:36:13 AM EDT eCW 1 ([facility]) Name Value Range Interpretation Code Description Data Lisa rce(s) Supporting Document(s) Chlamydia trachomatis rRNA [Presence] in Unspecified specimen by Probe and target amplification method NEGATIVE eCW1 ([facility]) ID Date Data Source PAP REQUEST FOR SERVICE 09/04/2020 02:57:17 AM EDT eCW1 ([facility]) Name Value Range Interpretation Code Description Data Lisa rce(s) Supporting Document(s) eCW1 ([facility]) ID Date Data Source LIPID PANEL (CARDIAC RISK) 08/23/2020 11:41:38 AM EDT eCW1 ( [facility]) Name Value Range Interpretation Code Description Data Lisa rce(s) Supporting Document(s) Cholesterol [Moles/volume] in Serum or Plasma 197 CHOLESTEROL LEVEL eCW1 ([facility]) Cholesterol in HDL [Moles/volume] in Serum or Plasma 40 HDL CHOLESTEROL eCW1 ([facility]) Triglyceride [Mass/volume] in Serum or Plasma by calculation 139 TRIGLYCERIDES LEVEL eCW1 ([facility]) 4.925 CHOLESTEROL RISK RATIO eCW1 ([facility]) Cholesterol in LDL [Mass/volume] in Serum or Plasma by calculation 129 LDL CHOLESTEROL eCW1 ([facility]) 157 NON-HDL-C eCW1 ([facility]) ID Date Data Source [id number] 08/23/2020 11:41:38 AM EDT eCW1 ([facility]) Name Value Range Interpretation Code Description Data Lisa rce(s) Supporting Document(s) Hemoglobin A1c/Hemoglobin.total in Blood 5.6 HEMOGLOBIN A1c eCW1 ([facility]) ID Date Data Source FREE T4 & TSH PANEL 08/23/2020 11:41:38 AM EDT eCW1 ([facility]) Name Value Range Interpretation Code Description Data Lisa rce(s) Supporting Document(s) 0.611 THYROID STIMULATING HORMONE eC W1 ([facility]) 1.35 FREE T4 eCW1 ([facility]) ID Date Data Source Comprehensive Metabolic Profile (CMP) 08/23/2020 11:41:38 AM EDT eCW1 ([facility]) Name Value Range Interpretation Code Description Data Lisa rce(s) Supporting Document(s) > 60.0 eCW1 ([facility]) 0.81 CREATININE FOR GFR eCW1 ([facility]) 76 GLUCOSE, FASTING eCW1 ([facility]) 10 BLOOD UREA NITROGEN eCW1 ([facility]) 5.1 POTASSIUM SERUM eCW1 ([facility] 107 CHLORIDE LEVEL eCW1 ([facility]) 141 SODIUM LEVEL eCW1 ([facility]) 29 CARBON DIOXIDE LEVEL eCW1 ([facility]) 14 AST/SGOT eCW1 ([facility]) 39 ALT/SGPT eCW1 ([facility]) 94 ALKALINE PHOSPHATASE eCW1 ([facility]) 9.1 CALCIUM LEVEL eCW1 ([facility]) 0.4 BILIRUBIN,TOTAL eCW1 ([facility]) 3.5 ALBUMIN eCW1 ([facility]) 7.0 TOTAL PROTEIN eCW1 ([facility]) 1.0 ALBUMIN/GLOBULIN RATIO eCW1 ([facility]) Procedure Social History Code Duration Value Status Description Data Source(s ) Smoking 12/31/2020 12:00:00 AM EST Unknown if ever smoked comp leted Unknown if ever smoked [facility]) Smoking 12/26/2020 12:00:00 AM EST Unknown if ever smoked comp leted Unknown if ever smoked [facility] ([facility]) Smoking 12/25/2020 12:00:00 AM EST Unknown if ever smoked comp leted Unknown if ever smoked [facility] ([facility]) Smoking 12/03/2020 12:00:00 AM EST Unknown if ever smoked comp leted Unknown if ever smoked [facility] ([facility]) Smoking 11/26/2020 12:00:00 AM EST Never Smoker completed Never S moker eCW1 ([facility]) Smoking 11/25/2020 12:00:00 AM EST Unknown if ever smoked comp leted Unknown if ever smoked [facility] ([facility]) Smoking 11/19/2020 12:00:00 AM EST Unknown if ever smoked comp leted Unknown if ever smoked [facility] ([facility]) Smoking 11/06/2020 12:00:00 AM EST Unknown if ever smoked comp leted Unknown if ever smoked [facility] ([facility]) Smoking 11/05/2020 12:00:00 AM EST Unknown if ever smoked comp leted Unknown if ever smoked [facility] ([facility]) Smoking 10/22/2020 12:00:00 AM EST Unknown if ever smoked comp leted Unknown if ever smoked [facility] ([facility]) Smoking 09/25/2020 12:00:00 AM EST Unknown if ever smoked comp leted Unknown if ever smoked [facility] ([facility]) Smoking 09/10/2020 12:00:00 AM EDT Unknown if ever smoked comp leted Unknown if ever smoked [facility] ([facility]) Alcohol intake 09/06/2020 12:00:00 AM EDT Lifetime non-drinker (finding) completed Lifetime non-drinker (finding) [facility] Tobacco use and exposure 09/06/2020 12:00:00 AM EDT Never used co mpleted Never used [facility] Smoking 09/06/2020 12:00:00 AM EDT Never smoker completed Never s [facility] Smoking 08/28/2020 12:00:00 AM EDT Never Smoker completed Never S moker eCW1 ([facility]) Smoking 08/28/2020 12:00:00 AM EDT Never Smoker completed Never S moker eCW1 ([facility]) Smoking 08/28/2020 12:00:00 AM EDT Never Smoker completed Never S moker eCW1 ([facility]) Smoking 08/28/2020 12:00:00 AM EDT Never Smoker completed Never S moker eCW1 ([facility]) Smoking 08/28/2020 12:00:00 AM EDT Never Smoker completed Never S moker eCW1 ([facility]) Smoking 08/27/2020 12:00:00 AM EDT Unknown if ever smoked comp leted Unknown if ever smoked [facility] ([facility]) Smoking 08/19/2020 12:00:00 AM EDT Unknown if ever smoked comp leted Unknown if ever smoked [facility] ([facility]) Smoking 05/14/2020 12:00:00 AM EDT Unknown if ever smoked comp leted Unknown if ever smoked [facility] ([facility]) Smoking 02/28/2020 12:00:00 AM EDT Unknown if ever smoked comp leted Unknown if ever smoked [facility] ([facility]) Smoking 02/13/2020 12:00:00 AM EDT Unknown if ever smoked comp leted Unknown if ever smoked [facility] ([facility]) Smoking 01/31/2020 12:00:00 AM EDT Unknown if ever smoked comp leted Unknown if ever smoked [facility] ([facility]) Smoking 01/16/2020 12:00:00 AM EST Unknown if ever smoked comp leted Unknown if ever smoked [facility] ([facility]) Smoking 11/17/2019 12:00:00 AM EST Unknown if ever smoked comp leted Unknown if ever smoked [facility] ([facility]) Smoking 11/16/2019 12:00:00 AM EST Unknown if ever smoked comp leted Unknown if ever smoked [facility] ([facility]) Vital Signs ID Date Data Source UNK Name Value Range Interpretation Code Description Data Source(s) Diastolic blood pressure 0 mm[Hg] Normal (applies to non-numeric results) 0 mm[Hg] [facility] ([facility]) Systolic blood pressure 0 mm[Hg] Normal (applies t o non-numeric results) 0 mm[Hg] [facility] ([facility]) Body mass index (BMI) [Ratio] 0.00 kg/m2 No rmal (applies to non-numeric results) 0.00 kg/m2 [facility] ([facility]) Body weight Measured 0.00 lbs Normal (applies to n on-numeric results) 0.[address] [facility] ([facility]) Body height 0.00 in Normal (applies to non-numeric resu lts) 0.00 in [facility] ([facility]) Diastolic blood pressure 76 mm[Hg] 76 mm[Hg] eCW1 ([facility]) Systolic blood pressure 124 mm[Hg] 124 mm[Hg] e CW1 ([facility]) Body temperature 97 [degF] 97 [degF] eCW1 ([facility]) Respiratory rate 18 /min 18 /min eCW1 ([facility]) Heart rate 111 /min 111 /min [facility]CW1 [facility] Body mass index (BMI) [Ratio] 64.12 kg/m2 64.12 kg/m2 eCW1 ([facility]) Body height 63 [in_i] 63 [in_i] eCW1 ([facility]) Body weight 362 [lb_av] 362 [lb_av] eCW1 ([facility]) Diastolic blood pressure 0 mm[Hg] Normal (applies to non-numeric results) 0 mm[Hg] [facility] ([facility]) Systolic blood pressure 0 mm[Hg] Normal (applies t o non-numeric results) 0 mm[Hg] [facility] ([facility]) Body mass index (BMI) [Ratio] 0.00 kg/m2 No rmal (applies to non-numeric results) 0.00 kg/m2 [facility] ([facility]) Body weight Measured 0.00 lbs Normal (applies to n on-numeric results) 0.00 lbs [facility] ([facility]) Body height 0.00 in Normal (applies to non-numeric resu lts) 0.00 in [facility] ([facility]) Diastolic blood pressure 76 mm[Hg] 76 mm[Hg] eCW1 ([facility]) Systolic blood pressure 126 mm[Hg] 126 mm[Hg] e CW1 ([facility]) Body mass index (BMI) [Ratio] 65.54 kg/m2 65.54 kg/m2 eCW1 ([facility]) Body height 63 [in_i] 63 [in_i] eCW1 ([facility]) Body weight 370 [lb_av] 370 [lb_av] eCW1 ([facility]) Diastolic blood pressure 0 mm[Hg] Normal (applies to non-numeric results) 0 mm[Hg] [facility] ([facility]) Systolic blood pressure 0 mm[Hg] Normal (applies t o non-numeric results) 0 mm[Hg] [facility] ([facility]) Body mass index (BMI) [Ratio] 0.00 kg/m2 No rmal (applies to non-numeric results) 0.00 kg/m2 [facility] ([facility]) Body weight Measured 0.00 lbs Normal (applies to n on-numeric results) 0.00 lbs [facility] ([facility]) Body height 0.00 in Normal (applies to non-numeric resu lts) 0.00 in [facility] ([facility]) Diastolic blood pressure 68 mm[Hg] 68 mm[Hg] eCW1 ([facility]) Systolic blood pressure 118 mm[Hg] 118 mm[Hg] e CW1 ([facility]) Body temperature 97.5 [degF] 97.5 [degF] eCW1 ( [facility]) Respiratory rate 18 /min 18 /min eCW1 ([facility]) Heart rate 113 /min 113 /min eCW1 [facility] Body mass index (BMI) [Ratio] 65.50 kg/m2 65.50 kg/m2 W1 ([facility]) Body height 63 [in_i] 63 [in_i] eCW1 ([facility]) Body weight 369.8 [lb_av] 369.8 [lb_av] eCW1 ([facility]) Diastolic blood pressure 0 mm[Hg] Normal (applies to non-numeric results) 0 mm[Hg] [facility] ([facility]) Systolic blood pressure 0 mm[Hg] Normal (applies t o non-numeric results) 0 mm[Hg] [facility] ([facility]) Body mass index (BMI) [Ratio] 0.00 kg/m2 No rmal (applies to non-numeric results) 0.00 kg/m2 [facility] ([facility]) Body weight Measured 0.00 lbs Normal (applies to n on-numeric results) 0.00 lbs [facility] ([facility]) Body height 0.00 in Normal (applies to non-numeric resu lts) 0.[address] [facility] ([facility]) Diastolic blood pressure 0 mm[Hg] Normal (applies to non-numeric results) 0 mm[Hg] [facility] ([facility]) Systolic blood pressure 0 mm[Hg] Normal (applies t o non-numeric results) 0 mm[Hg] [facility] ([facility]) Body mass index (BMI) [Ratio] 0.00 kg/m2 No rmal (applies to non-numeric results) 0.00 kg/m2 [facility] ([facility]) Body weight Measured 0.00 lbs Normal (applies to n on-numeric results) [facility] Body height 0.00 in Normal (applies to non-numeric resu lts) 0.00 in [facility] ([facility]) Diastolic blood pressure 0 mm[Hg] Normal (applies to non-numeric results) 0 mm[Hg] [facility] ([facility]) Systolic blood pressure 0 mm[Hg] Normal (applies t o non-numeric results) 0 mm[Hg] [facility] ([facility]) Body mass index (BMI) [Ratio] 0.00 kg/m2 No rmal (applies to non-numeric results) 0.00 kg/m2 [facility] ([facility]) Body weight Measured 0.00 lbs Normal (applies to n on-numeric results) 0.00 lbs [facility] ([facility]) Body height 0.00 in Normal (applies to non-numeric resu lts) 0.00 in [facility] ([facility]) Patient Treatment Plan of Care Planned Activity Planned Date Details Description Data Source (s) Ortho Tri-Cyclen Lo 0.18/0.215/0.25 MG-25 MCG 08/28/2020 12:00:00 A M EDT eCW1 ([facility]) Ortho Tri-Cyclen Lo 0.18/0.215/0.25 MG-25 MCG 08/28/2020 12:00:00 A M EDT eCW1 ([facility]) Ortho Tri-Cyclen Lo 0.18/0.215/0.25 MG-25 MCG 08/28/2020 12:00:00 A M EDT eCW1 ([facility]) Ortho Tri-Cyclen Lo 0.18/0.215/0.25 MG-25 MCG 08/28/2020 12:00:00 A M EDT eCW1 ([facility]) Ortho Tri-Cyclen Lo 0.18/0.215/0.25 MG-25 MCG 08/28/2020 12:00:00 A M EDT eCW1 ([facility]) Hydrochlorothiazide 12.5 MG Oral Tablet 08/19/2020 12:00:00 AM EDT eCW1 ([facility]) Hydrochlorothiazide 12.5 MG Oral Tablet 08/19/2020 12:00:00 AM EDT eCW1 ([facility]) Hydrochlorothiazide 12.5 MG Oral Tablet 08/19/2020 12:00:00 AM EDT eCW1 ([facility]) Hydrochlorothiazide 12.5 MG Oral Tablet 08/19/2020 12:00:00 AM EDT eCW1 ([facility])
[2021-01-07] MEDS ORDERED: D31000TA2 PO (04:54)
[2021-01-07] MEDS: ARIPiprazole 10 MG TAB PO SCH (08:50)
[2021-01-07] MEDS: buPROPion **XL** TABLET 150MG (WELLBUTRIN XL) PO SCH ×2 (08:50→08:51)
[2021-01-07] MEDS: VITAMIN D 1,000 INTERNATIONAL UNITS TABLET PO SCH (08:50)
[2021-01-07] MEDS ORDERED: LEVOTHYROXINE 50MCG TABLET (0.05MG) PO SCH (09:00)
[2021-01-07] MEDS ORDERED: hydroCHLOROthiazide 12.5 MG CAPSULE PO SCH (09:00)
[2021-01-07] MEDS ORDERED: ACETAMINOPHEN TAB 650MG DOSE (2X325MG) PO PRN (12:45)
[2021-01-07] MEDS ORDERED: MAALOX 30 ML SUSP *UDC PO PRN (12:45)
[2021-01-07] MEDS ORDERED: MOM 30ML SUSPENSION UDC PO PRN (12:45)
--- OUTSIDE RECORDS SUMMARY | 2021-01-07 13:13 | CCD ---
Author Author [facility] Organization [facility] Address Unknown Phone Unavailable Care Team Providers Care Control Room Supervisor Name Role Phone Ahmet Don PMH-[facility] MACHINE OPERATOR Unavailable Unavailable Ahmet Don PMH-[place] MACHINE OPERATOR Unavailable Unavailable Ahmet Don PMH-[place] MACHINE OPERATOR Unavailable Unavailable Ahmet Don PMH-[place] MACHINE OPERATOR Unavailable Unavailable Ahmet Don PMH-[place] MACHINE OPERATOR Unavailable Unavailable Ahmet Don PMH-[place] MACHINE OPERATOR Unavailable Unavailable Elizabeth MORRISON Unavailable Unavailable Eugenio Hernandes Unavailable Eugenio Hernandes Unavailable Peñaloza, Masha Unavailable Unavailable Peñaloza, Masha Unavailable Unavailable Peñaloza, Masha Unavailable Unavailable Peñaloza, Masha Unavailable Unavailable Peñaloza, Masha Unavailable Unavailable Peñaloza, Masha Unavailable Unavailable Peñaloza, Masha Unavailable Unavailable Peñaloza, Masha Unavailable Unavailable Peñaloza, Masha Unavailable Unavailable Peñaloaz, Masha Unavailable Unavailable Peñaloza, Masha Unavailable Unavailable [...] Masha Unavailable Unavailable Peñaloza, Masha Unavailable Unavailable SYSTEM IN, NOT IN PROVIDER Unavailable Unavailable Trung Holguin Unavailable Graciela Pacheco [...] is protected by Article 27-F of the [facility] Public Health law. If you continue you may have access to information: Regarding HIV / AIDS; Provided by facilities licensed or operated by the [facility] Office of Mental Health; or Provided by the [facility] Office for People With Developmental Disabilities. If such information is present, then the following [facility] mandated warning applies: This information has been [...] law may result in a fine or alf sentence or both. A general authorization for the release of medical or other information is NOT sufficient authorization for further disc losure. Allergies and Adverse Reactions Type Description Substance Reaction Status Data Source(s ) Drug Class NO KNOWN ALLERGIES NO KNOWN ALLERGIES [facility] Propensity to adverse reactions to substance Ambien (zolpide m) Zolpidem tartrate 10 MG Oral Tablet [Ambien] Active [facility]) Family History Family Member Name Family Member Gender Family Member Status Date o f Status Description Data Source(s) Unknown Unknown Problem [facility] ([facility] father Encounters Encounter Providers Location Date Indications Data Source(s ) Outpatient Referrer: PROVIDER SYSTEM IN 01/07/2021 04:51:0 0 AM EST psychiatry [facility] psychiatry Extended Individual Psychotherapy - 45 min Attender: Anthony yarbrough [facility] 12/31/2020 01:00:00 AM EST - 12/31/2020 01:00:00 AM EST [facility] ([facility]) Attender: Eugenio Hernandes 12/31/2020 12:00:00 AM EST [facility] ([facility]) [facility] 12/26/2020 02:00:00 AM EST - 12/26/2020 02:00:00 AM EST [facility] ([facility]) Attender: Saumya COOPERGALO 12/26/2020 12: 00:00 AM EST [facility] ([facility]) Attender: Eugenio Hernandes 12/25/2020 12:00:00 AM EST [facility] ([facility]) [id number]"Psychotherapy Attender: Eugenio Hernandes [facility] 12/24/2020 02:00:00 AM EST - 12/24/2020 02:00:00 AM EST [facility] ([facility]) Attender: Eugenio Hernandes 12/03/2020 12:00:00 AM EST [facility] ([facility]) Extended Individual Psychotherapy - 45 min Attender: Anthony yarbrough [facility] 12/02/2020 03:00:00 AM EST - 12/02/2020 03:00:00 AM EST [facility] ([facility]) Outpatient [facility] [address] 11/26/2020 12:00:00 AM EST eCW1 ([facility]) Extended Individual Psychotherapy - 45 min Attender: Anthony yarbrough [facility] 11/25/2020 03:00:00 AM EST - 11/25/2020 03:00:00 AM EST [facility] ([facility]) Attender: Eugenio Hernandes 11/25/2020 12:00:00 AM EST [facility] ([facility]) Attender: Eugenio Hernandes 11/19/2020 12:00:00 AM EST [facility] ([facility]) Extended Individual Psychotherapy - 45 min Attender: Anthony yarbrough [facility] 11/18/2020 01:00:00 AM EST - 11/18/2020 01:00:00 AM EST [facility] ([facility]) Outpatient Attender: Saumya Don [facility] 11/06/2020 01:30:00 AM EST - 11/06/2020 01:30:00 AM EST [facility] ([facility]) Attender: Saumya COOPERGALO 11/06/2020 12: 00:00 AM EST [facility] ([facility]) Attender: Eugenio Hernandes 11/05/2020 12:00:00 AM EST [facility] ([facility]) Extended Individual Psychotherapy - 45 min Attender: Anthony yarbrough [facility] 11/04/2020 03:00:00 AM EST - 11/04/2020 03:00:00 AM EST [facility] ([facility]) [place] [address] [facility] [address] 11/01/2020 12:00:00 AM EST eCW1 ([facility]) Attender: Eugenio Hernandes 10/22/2020 12:00:00 AM EST [facility] ([facility]) Extended Individual Psychotherapy - 45 min Attender: Anthony yarbrough [facility] 10/21/2020 02:00:00 AM EST - 10/21/2020 02:00:00 AM EST [facility] ([facility]) Outpatient Attender: Masha Peñaloza 10/08/2020 12:00:00 AM ES [facility] Unknown [address] [facility] [address] 10/04/2020 12:00:00 AM EST eCW1 ([facility]) Outpatient Attender: CHARLIE MORRISON [id number] 09/27/2020 12:00 :00 AM EST Morbid (severe) obesity due to excess calories [facility] Morbid (severe) obesity due to excess ca lories Outpatient 09/26/2020 12:00:00 AM EST [facility] Attender: Eugenio Hernandes 09/25/2020 12:00:00 AM EST [facility] ([facility]) Extended Individual Psychotherapy - 45 min Attender: Anthony yarbrough [facility] 09/24/2020 01:00:00 AM EST - 09/24/2020 01:00:00 AM EST [facility] ([facility]) Unknown [address] [facility] [place] [address] 09/11/2020 12:00:00 AM EDT eCW1 ([facility]) Extended Individual Psychotherapy - 45 min Attender: Anthony yarbrough [facility] 09/10/2020 02:00:00 AM EDT - 09/10/2020 02:00:00 AM EDT [facility] ([facility]) Attender: Eugenio Hernandes 09/10/2020 12:00:00 AM EDT [facility] ([facility]) Outpatient [address] [facility] [address] 08/28/2020 12:00:00 AM EDT eCW1 ([facility]) Outpatient Attender: Saumya Don [facility] MACHINE OPERATOR [facility] 08/27/2020 02:30:00 AM EDT - 08/27/2020 02:30:00 AM EDT [facility] ([facility]) Attender: Saumya COOPER-CLOTHESPIN MACHINE OPERATOR 08/27/2020 12: 00:00 AM EDT [facility] ([facility]) [place] [address] [facility] [address] 08/19/2020 12:00:00 AM EDT [facility] Attender: Eugenio Hernandes 08/19/2020 12:00:00 AM EDT [facility] ([facility]) [id number]"Psychotherapy Attender: Eugenio Hernandes [facility] 08/16/2020 02:00:00 AM EDT - 08/16/2020 02:00:00 AM EDT [facility] ([facility]) Outpatient 08/09/2020 12:00:00 AM EDT [facility] Outpatient Attender: Saumya Don [facility] MACHINE OPERATOR [facility] 05/14/2020 03:30:00 AM EDT - 05/14/2020 03:30:00 AM EDT [facility] ([facility]) Attender: Saumya COOPER-JUDITH 05/14/2020 12: 00:00 AM EDT [facility] ([facility]) Outpatient Attender: Graciela MARCUS 04/23/2020 07:31:08 PM ED T [facility] [address] [facility] [address] 04/09/2020 12:00:00 AM EDT [facility]CW1 [facility] [address] [facility] [address] 02/29/2020 12:00:00 AM EDT [facility]CW1 [facility]) Attender: Trung Holguin 02/28/2020 12:00:0 0 AM EDT [facility] ([facility]) TEMPMHCTelemed 20" psychotherapy Attender: Trung Bergeron [facility] 02/27/2020 03:00:00 AM EDT - 02/27/2020 03:00:00 AM EDT [facility] ([facility]) TEMPMHCTelemed 30" Psychotherapy Attender: Trung Bergeron [facility] 02/13/2020 03:00:00 AM EDT - 02/13/2020 03:00:00 AM EDT [facility] ([facility]) Attender: Trung Holguin 02/13/2020 12:00:0 0 AM EDT [facility] ([facility]) [facility] [address] [place] [address], [facility] [address] 02/06/2020 12:00:00 AM EDT eCW1 ([facility]) Attender: Trung Holguin 01/31/2020 12:00:0 0 AM EDT [facility] ([facility]) TEMPMHCTelemed 30" Psychotherapy Attender: Trung Bergeron [facility] 01/30/2020 04:15:00 AM EDT - 01/30/2020 04:15:00 AM EDT [facility] ([facility]) [address] [address] 01/29/2020 12:00:00 AM EDT eCW1 ([facility]) [address] [address] 01/19/2020 12:00:00 AM EST eCW1 ([facility]) Outpatient Attender: Saumya Don [facility] 01/16/2020 11:30:00 AM EST - 01/16/2020 11:30:00 AM EST [facility] ([facility]) Extended Individual Psychotherapy - 45 min Attender: Jonathon Holguin [facility] 01/16/2020 04:00:00 AM EST - 01/16/2020 04:00:00 AM EST [facility] ([facility]) Attender: Trung Holguin 01/16/2020 12:00:0 0 AM EST [facility] ([facility]) Attender: Saumya COOPER-JUDITH 01/16/2020 12: 00:00 AM EST [facility] ([facility]) [address] [address] 01/16/2020 12:00:00 AM EST eCW1 ([facility]) [facility] [address] [place] [address] 12/19/2019 12:00:00 AM EST eCW1 ([facility]) [facility] [address] [place] [address] 12/19/2019 12:00:00 AM EST eCW1 ([facility]) [facility] [address] [facility] [address] [address] 12/05/2019 12:00:00 AM EST eCW1 ([facility]) [facility] [address] [facility] [address] 12/05/2019 12:00:00 AM EST eCW1 ([facility]) [facility] [address] [facility], [facility] [address] 11/30/2019 12:00:00 AM EST eCW1 ([facility]) Outpatient Attender: Saumya Don [facility] MACHINE OPERATOR [facility] 11/17/2019 02:00:00 AM EST - 11/17/2019 02:00:00 AM EST [facility] ([facility]) Attender: Saumya Don [facility] MACHINE OPERATOR 11/17/2019 12: 00:00 AM EST [facility] ([facility]) Attender: Trung Holguin 11/16/2019 12:00:0 0 AM EST [facility] ([facility]) Brief Individual Psychotherapy - 30 min Attender: Trung ortez [facility] 11/14/2019 03:00:00 AM EST - 11/14/2019 03:00:00 AM EST [facility] ([facility]) Functional Status Medications Medication Brand Name [...] AM EST 300 mg by mouth completed [id number] bupropion HCl by mouth [id number] 11/06/2020 every morning 300 mg tablet extended release 24 hr 60710 [id number] Saumya Don [id number] P sychiatric/Mental Health [facility] ([facility]) Trazodone Hydrochloride 50 MG Oral Tablet trazodone 2019 12:00:00 AM EST 50 mg by mouth completed [id number] trazodone by mouth C382 88 11/06/2020 at bedtime 50 mg tablet as needed 14564 396089 [id number] Massimo Don [id number] Psychiatric/Mental Health [facility] ([facility]) 10 mg 11/06/2020 12:00:00 AM EST tablet 30 TAKE ONE TABLET BY MOUTH EVERY DAY TAKE ONE TABLET BY MOUTH EVERY DAY SOLD: 12/09/2020 [facility] Trazodone Hydrochloride 50 MG Oral Tablet trazodone 2019 12:00:00 AM EST 50 mg by mouth completed [id number] trazodone by mouth C382 88 11/06/2020 at bedtime 50 mg tablet as needed 28322 [id number] [id number] Massimo Don [id number] Psychiatric/Mental Health [facility] ([facility]) 24 HR Bupropion Hydrochloride 300 MG Extended Release Oral T ablet BUPROPION HCL 11/06/2020 12:00:00 AM EST tablet extended release 24 hr 30 TAKE ONE TABLET BY MOUTH EVERY MORNING TAKE ONE TABLET BY MOUTH EVERY MORNING SOLD: 12/14/2020 [facility] aripiprazole 10 MG Oral Tablet aripiprazole 11/06/2020 12:00:00 AM ES T 10 mg by mouth completed [id number] aripiprazole by mouth [id number] 1 01/07/2020 once a day 10 mg tablet 09112 [id number] Saumya brooks [id number] Psychiatric/Mental Health [facility] ([facility]) 50 mg 11/06/2020 12:00:00 AM EST tablet 30 TAKE ONE TABLET BY MOUTH EVERY DAY AT BEDTIME NEEDED TAKE ONE TABLET BY MOUTH EVERY DAY AT BE DTIME NEEDED SOLD: 11/07/2020 [facility] aripiprazole 10 MG Oral Tablet aripiprazole 11/06/2020 12:00:00 AM ES T 10 mg by mouth completed [id number] aripiprazole by mouth [id number] 1 01/07/2020 once a day 10 mg tablet 78145 [id number] Saumya brooks [id number] Psychiatric/Mental Health [facility] ([facility]) 10 mg 11/06/2020 12:00:00 AM EST tablet 30 TAKE ONE TABLET BY MOUTH EVERY DAY TAKE ONE TABLET BY MOUTH EVERY DAY SOLD: 11/07/2020 [facility] Prazosin 5 MG Oral Capsule prazosin 11/06/2020 12:00:00 AM EST 5 mg by mouth completed 354809 prazosin by mouth [id number] 11/06/2020 at bedtime 5 mg capsule 77075 [id number] Maricruz Vizcarra [id number] Nurse Practitioner [facility] ([facility]) 5 mg 11/06/2020 12:00:00 AM EST capsule 50 TAKE TWO CAPSULES BY MOUTH EVERY DAY AT BEDTIME TAKE TWO CAPSULES BY MOUTH EVERY DAY AT BEDTIME SOLD: 2019 [facility] Prazosin 5 MG Oral Capsule prazosin 11/06/2020 12:00:00 AM EST 5 mg by mouth completed [id number] prazosin by mouth [id number] 11/06/2020 at bedtime 5 mg capsule 38296 [id number] Maricruz Leone [id number] Nurse Practitioner [facility] ([facility]) 24 HR Bupropion Hydrochloride 150 MG [...] Tri-Cyclen Lo 0.18/0.215/0.25 MG-25 MCG eCW1 ([facility]) Ortho Tri-Cyclen Lo 0.18/0.215/0.25 MG-25 MCG UNK 08/28/20 12:00:00 AM EDT 1.0 {tablet} active Ortho Tri-Cyclen Lo 0.18/0.215/0.25 MG-25 MCG eCW1 ([facility]) Ortho Tri-Cyclen Lo 0.18/0.215/0.25 MG-25 MCG UNK 08/28/20 12:00:00 AM EDT 1.0 {tablet} active Ortho Tri-Cyclen Lo 0.18/0.215/0.25 MG-25 MCG eCW1 ([facility]) Ortho Tri-Cyclen Lo 0.18/0.215/0.25 MG-25 MCG UNK 08/28/20 12:00:00 AM EDT 1.0 {tablet} active Ortho Tri-Cyclen Lo 0.18/0.215/0.25 MG-25 MCG eCW1 ([facility]) Ortho Tri-Cyclen Lo 0.18/0.215/0.25 MG-25 MCG UNK 08/28/20 12:00:00 AM EDT 1.0 {tablet} active Ortho Tri-Cyclen Lo 0.18/0.215/0.25 MG-25 MCG eCW1 ([facility]) Ortho Tri-Cyclen Lo 0.18/0.215/0.25 MG-25 MCG UNK 08/28/20 12:00:00 AM EDT 1.0 {tablet} active Ortho Tri-Cyclen Lo 0.18/0.215/0.25 MG-25 MCG eCW1 ([facility]) 50 mcg 08/22/2020 12:00:00 AM EDT [...] acti ve Hydrochlorothiazide 12.5 MG eCW1 ([facility]) Hydrochlorothiazide 12.5 MG Oral Tablet Hydrochlorothiazide 12.5 MG 08/19/2020 12:00:00 AM EDT 1.0 {tablet_in_the_morning} susp ended Hydrochlorothiazide 12.5 MG W1 ([facility]) Hydrochlorothiazide 12.5 MG Oral Tablet Hydrochlorothiazide 12.5 MG 08/19/2020 12:00:00 AM EDT 1.0 {tablet_in_the_morning} acti ve Hydrochlorothiazide 12.5 MG eCW1 ([facility]) Hydrochlorothiazide 12.5 MG Oral Tablet Hydrochlorothiazide 12.5 MG 08/19/2020 12:00:00 AM EDT 1.0 {tablet_in_the_morning} acti ve Hydrochlorothiazide 12.5 MG eCW1 ([facility]) Hydrochlorothiazide 12.5 MG Oral Tablet Hydrochlorothiazide 12.5 MG 08/19/2020 12:00:00 AM EDT 1.0 {tablet_in_the_morning} acti ve Hydrochlorothiazide 12.5 MG eCW1 ([facility]) Hydrochlorothiazide 12.5 MG Oral Tablet Hydrochlorothiazide 12.5 MG 08/19/2020 12:00:00 AM EDT 1.0 {tablet_in_the_morning} acti ve Hydrochlorothiazide 12.5 MG eCW1 ([facility]) [place] Carbonate 300 MG Oral Capsule lithium carbonate 12:00:00 AM EDT 300 mg by mouth completed [id number] lithium car bonate by mouth [id number] 08/15/2020 at bedtime 300 mg capsule 80001 030424 [id number] Devin Asadsheryl [id number] Psychiatry [facility] ([facility]) 300 mg 08/15/2020 12:00:00 AM EDT [...] AM EDT 150 mg by mouth completed [id number] bupropion HCl by mouth [id number] 08/15/2020 once a day 150 mg tablet ex tended release 24 hr 84108 303375 [id number] Saumya Don [id number] P sychiatric/Mental Health [facility] ([facility]) 300 mg 08/15/2020 12:00:00 AM EDT capsule 30 TAKE ONE CAPSULE BY MOUTH EVERY DAY AT BEDTIME TAKE ONE CAPSULE BY MOUTH EVERY DAY AT BEDTIME SOLD: [facility] 24 HR Bupropion Hydrochloride 150 MG Extended Release Oral T ablet bupropion HCl 08/15/2020 12:00:00 AM EDT 150 mg by mouth completed 618642 bupropion HCl by mouth [id number] 08/15/2020 once a day 150 mg tablet ex tended release 24 hr 08506 [id number] Saumya Don [id number] P sychiatric/Mental Health [facility] ([facility]) 24 HR Bupropion Hydrochloride 300 MG Extended Release Oral T ablet bupropion HCl 08/15/2020 12:00:00 AM EDT 300 mg by mouth completed 525299 bupropion HCl by mouth [id number] 08/15/2020 10/14/2020 once a day 30 300 mg tablet extended release 24 hr 50989 [id number] [facility] [id number] Psychi atry [facility] ([facility]) 24 HR Bupropion Hydrochloride 300 MG Extended Release Oral T ablet BUPROPION HCL 08/15/2020 12:00:00 AM EDT tablet extended release 24 hr 30 TAKE ONE TABLET BY MOUTH EVERY DAY TAKE ONE TABLET BY MOUTH EVERY DAY SOLD: 09/16/2020 [facility] [place] Carbonate 300 MG Oral Capsule lithium carbonate 12:00:00 AM EDT 300 mg by mouth completed [id number] lithium car bonate by mouth [id number] 08/15/2020 at bedtime 300 mg capsule 29347 039006 [id number] [facility] [id number] Psychiatry [facility] ([facility]) 24 HR Bupropion Hydrochloride 300 MG [...] AM EDT 120 mg by mouth completed [id number] Latuda by mout h [id number] 04/25/2020 10/14/2020 once a day 30 120 mg tablet 53786 [id number] Devin [facility] [id number] Psychiatry [facility] ([facility]) Lurasidone Hydrochloride 120 MG Oral Tablet [Latuda] Latuda 04/25/2020 12:00:00 AM EDT 120 mg by mouth completed [id number] Latuda by mout h [id number] 04/25/2020 06/24/2020 once a day 30 120 mg tablet 73162 [id number] Saumya Don [id number] Psychiatric/Mental Health [facility] ([facility]) 300 mg 04/24/2020 12:00:00 AM EDT [...] AREA(S) TWO TIMES A DAY SOLD: 02/29/2020 [facility] 120 mg 02/24/2020 12:00:00 AM EDT [...] 02/23/2020 12:00:00 AM EDT 20 mg completed [id number] 02/23/2020 30 20 mg tablet 99980 923349 [id number] Saumya Don [id number] P sychiatric/Mental Health [facility] ([facility]) 20 mg 02/23/2020 12:00:00 AM EDT [...] 02/23/2020 12:00:00 AM EDT 20 mg completed [id number] 02/23/2020 30 20 mg tablet 60168 543253 [id number] Saumyaester Don [id number] P sychiatric/Mental Health [facility] ([facility]) 300 mg 02/05/2020 12:00:00 AM EDT [...] CAPSULE BY MOUTH AT BEDTIME SOLD: 04/19/2020 [facility] 24 HR Bupropion Hydrochloride 150 MG Extended Release Oral T ablet bupropion HCl 01/26/2020 12:00:00 AM EDT 150 mg completed 710803 bupropion HCl 01/26/2020 30 150 mg tablet extended release 24 hr 69662 [id number] Saumya Don [id number] Psychiatric/Mental Health [facility] ([facility]) 5 mg 01/26/2020 12:00:00 AM EDT capsule 60 TAKE TWO CAPSULES BY MOUTH AT BEDTIME TAKE TWO CAPSULES BY MOUTH AT BEDTIME SOLD: 01/28/2020 [facility] 24 HR Bupropion Hydrochloride 150 MG Extended Release Oral T ablet BUPROPION HCL 01/26/2020 12:00:00 AM EDT tablet extended release 24 hr 30 TAKE ONE TABLET BY MOUTH EVERY DAY TAKE ONE TABLET BY MOUTH EVERY DAY SOLD: 03/22/2020 [facility] 24 HR Bupropion Hydrochloride 150 MG Extended Release Oral T ablet BUPROPION HCL 01/26/2020 12:00:00 AM EDT tablet extended release 24 hr 30 TAKE ONE TABLET BY MOUTH EVERY DAY TAKE ONE TABLET BY MOUTH EVERY DAY SOLD: 02/26/2020 [facility] [place] Carbonate 300 MG Oral Capsule lithium carbonate 12:00:00 AM EDT 300 mg completed [id number] lithium carbonate 30 300 mg capsule 10892 010713 [id number] Saumya Don [id number] Psychiatric/Mental Health [facility] ([facility]) Prazosin 5 MG Oral Capsule prazosin 01/26/2020 12:00:00 AM EDT 5 mg completed [id number] prazosin 01/26/2020 30 5 mg capsule 09066 039598 [id number] Saumya Don [id number] Psychiatric/Mental Health [facility] ([facility]) 24 HR Bupropion Hydrochloride 300 MG Extended Release Oral T ablet bupropion HCl 01/26/2020 12:00:00 AM EDT 300 mg completed [id number] bupropion HCl 01/26/2020 07/24/2020 30 300 mg tablet extended release 24 hr 39262 [id number] Saumya Don [id number] Psychiatric/Mental Health [facility] ([facility]) 5 mg 01/26/2020 12:00:00 AM EDT capsule 60 TAKE TWO CAPSULES BY MOUTH AT BEDTIME TAKE TWO CAPSULES BY MOUTH AT BEDTIME SOLD: 04/06/2020 [facility] 24 HR Bupropion Hydrochloride 150 MG Extended Release Oral T ablet bupropion HCl 01/26/2020 12:00:00 AM EDT 150 mg completed [id number] bupropion HCl 01/26/2020 07/24/2020 30 150 mg tablet extended release 24 hr 12861 912223 [id number] Saumya Don [id number] Psychiatric/Mental Health [facility] ([facility]) 300 mg 01/26/2020 12:00:00 AM EDT tablet extended release 24 hr 30 TAKE ONE TABLET BY MOUTH EVERY MORNING TAKE ONE TABLET BY MOUTH EVERY MORNING SOLD: 03/22/2020 [facility] Prazosin 5 MG Oral Capsule prazosin 01/26/2020 12:00:00 AM EDT 5 mg completed [id number] prazosin 01/26/2020 30 5 mg capsule 72751 085285 [id number] Saumya Don [id number] Psychiatric/Mental Health [facility] ([facility]) 24 HR Bupropion Hydrochloride 150 MG Extended Release Oral T ablet bupropion HCl 01/26/2020 12:00:00 AM EDT 150 mg completed [id number] bupropion HCl 01/26/2020 30 150 mg tablet extended release 24 hr 99772 075736 [id number] Saumya Don [id number] Psychiatric/Mental Health [facility] ([facility]) 24 HR Bupropion Hydrochloride 300 MG Extended Release Oral T ablet bupropion HCl 01/26/2020 12:00:00 AM EDT 300 mg completed [id number] bupropion HCl 01/26/2020 30 300 mg tablet extended release 24 hr 41142 740272 [id number] Saumya Don [id number] Psychiatric/Mental Health [facility] ([facility]) [place] Carbonate 300 MG Oral Capsule lithium carbonate 12:00:00 AM EDT 300 mg completed [id number] lithium carbonate 01/26/2020 07/24/2020 30 300 mg capsule 97540 [id number] Nya Don [id number] Psychiatric/Mental Health [facility] ([facility]) 24 HR Bupropion Hydrochloride 150 MG Extended Release Oral T ablet BUPROPION HCL 01/26/2020 12:00:00 AM EDT tablet extended release 24 hr 30 TAKE ONE TABLET BY MOUTH EVERY DAY TAKE ONE TABLET BY MOUTH EVERY DAY SOLD: 01/28/2020 [facility] Prazosin 5 MG Oral Capsule prazosin 01/26/2020 12:00:00 AM EDT 5 mg completed [id number] prazosin 01/26/2020 30 5 mg capsule 48311 169952 [id number] Saumya Arian [id number] Psychiatric[facility]Mental Health [facility] [facility] 5 mg 01/26/2020 12:00:00 AM EDT capsule 60 TAKE TWO CAPSULES BY MOUTH AT BEDTIME TAKE TWO CAPSULES BY MOUTH AT BEDTIME SOLD: 02/26/2020 [facility] Prazosin 5 MG Oral Capsule prazosin 01/26/2020 12:00:00 AM EDT 5 mg completed [id number] prazosin 01/26/2020 07/24/2020 30 5 mg capsule [id number] [facility] [id number] [facility] ([facility]) 24 HR Bupropion Hydrochloride 300 MG Extended Release Oral T ablet bupropion HCl 01/26/2020 12:00:00 AM EDT 300 mg completed [id number] bupropion HCl 01/26/2020 30 300 mg tablet extended release 24 hr 52913 [id number] [facility] [id number] [facility] ([facility]) 300 mg 01/26/2020 12:00:00 AM EDT tablet extended release 24 hr 30 TAKE ONE TABLET BY MOUTH EVERY MORNING TAKE ONE TABLET BY MOUTH EVERY MORNING SOLD: 02/26/2020 [facility] [place] Carbonate 300 MG Oral Capsule lithium carbonate 12:00:00 AM EDT 300 mg completed [id number] lithium carbonate 30 300 mg capsule [id number] [id number] [place] [id number] [facility] ([facility]) 300 mg 01/26/2020 12:00:00 AM EDT [...] AM EST 20 mg by mouth completed [id number] Latuda by mouth [id number] 01/19/2020 02/18/2020 once a day 30 20 mg tablet 24318 [id number] [id number] Saumya Don [id number] [facility] ([facility]) Lurasidone Hydrochloride 20 MG Oral Tablet [Latuda] Latuda 01/19/2020 12:00:00 AM EST 20 mg by mouth completed [id number] Latuda by mouth [id number] 01/19/2020 02/18/2020 once a day 30 20 mg tablet 56658 [id number] Saumya Don [id number] [facility] 120 mg 12/30/2019 12:00:00 AM EST tablet 30 TAKE ONE TABLET BY MOUTH EVERY MORNING DIRECTED WITH 20 MG TAKE ONE TABLET BY MOUTH EVERY MORNING A S DIRECTED WITH 20 MG SOLD: 01/01/2020 [facility] Lurasidone Hydrochloride 120 MG Oral Tablet [Latuda] Latuda 12/29/2019 12:00:00 AM EST 120 mg by mouth completed [id number] Latuda by mout h [id number] 12/29/2019 02/18/2020 every morning 30 120 mg tablet as directed 7415 9 079089 [id number] Saumya Don [id number] [facility] ([facility]) Lurasidone Hydrochloride 120 MG Oral Tablet [Latuda] Latuda 12/29/2019 12:00:00 AM EST 120 mg by mouth completed [id number] Latuda by mout h [id number] 12/29/2019 02/18/2020 every morning 30 120 mg tablet as directed 7415 9 082033 [id number] Saumya Don [id number] [facility] ([facility]) 0.25-35 mg-mcg 12/21/2019 12:00:00 AM EST tablet [...] by mouth completed [id number] prazosin by mouth [id number] 10/27/201910/2020 at bedtime 30 5 mg capsule 58945 707557 [id number] Saumya Don [id number] [facility] ([facility]) Prazosin 5 MG Oral Capsule prazosin 10/27/2019 12:00:00 AM EST 5 mg by mouth completed [id number] prazosin by mouth [id number] 10/27/201910/2020 at bedtime 30 5 mg capsule 70066 749815 [id number] Saumya Don [id number] [facility] ([facility]) Prazosin 5 MG Oral Capsule prazosin 10/27/2019 12:00:00 AM EST 5 mg by mouth completed [id number] prazosin by mouth [id number] 10/27/201910/2020 at bedtime 30 5 mg capsule 34522 254562 [id number] Saumya Don [id number] [facility] ([facility]) Lurasidone Hydrochloride 120 MG Oral Tablet [Latuda] Latuda 10/27/2019 12:00:00 AM EST 120 mg by mouth completed [id number] Latuda by mout h [id number] 10/27/2019 12/26/2019 every evening 30 120 mg tablet with meals 83014 [id number] [id number] Saumya Don [id number] [facility] ([facility]) Lurasidone Hydrochloride 120 MG Oral Tablet [Latuda] Latuda 10/27/2019 12:00:00 AM EST 120 mg by mouth completed [id number] Latuda by mout h [id number] 10/27/2019 12/26/2019 every evening 30 120 mg tablet with meals 97424 997493 [id number] Saumya Don [id number] [facility] ([facility]) 24 HR Bupropion Hydrochloride 150 MG Extended Release Oral T ablet bupropion HCl 10/27/2019 12:00:00 AM EST 150 mg by mouth completed [id number] bupropion HCl by mouth [id number] 10/27/2019 01/25/2020 once a day 30 150 mg tablet extended release 24 hr 80340 [id number] Saumya Arian [id number] [facility] ([facility]) 24 HR Bupropion Hydrochloride 150 MG Extended Release Oral T ablet bupropion HCl 10/27/2019 12:00:00 AM EST 150 mg by mouth completed [id number] bupropion HCl by mouth [id number] 10/27/2019 01/25/2020 once a day 30 150 mg tablet extended release 24 hr 27419 033157 [id number] Saumyaester Don [id number] [facility] ([facility]) Nystatin 100 UNT/MG Topical Powder 100,000 unit/gram [facility] N 05/13/2019 12:00:00 AM EDT powder 15 APPLY TO AFFECTED AREA TW O TIMES A DAY APPLY TO AFFECTED AREA TWO TIMES A DAY SOLD: 12/21/2019 [facility] Insurance Providers Payer name Policy type / Coverage type Policy ID Covered libertarian ID Covered libertarian's relationship to fuentes Policy Fuentes Plan Information [facility] [id number] SP [id number] [facility] [place] [id number] SP [id number] [facility] [id number] SP [id number] [facility] [id number] Self [id number] [facility] [id number] SP [id number] [facility] COMMUNITY PLAN [place] [id number] SP [id number] [facility] [id number] SP [id number] [facility] [place] [place] [id number] SP [id number] Self Pay P none S none MEDICAID [id number] SP [id number] [place] 020/520 [id number] SP [id number] [facility] [id number] SP [id number] MEDICAID [facility] [id number] SP [id number] [place]UE [place] [id number] SP [id number] SELF PAY [place] 020/520 [id number] SP [id number] [facility] [id number] SP [id number] [place] PPO 302/307 [id number] SP [id number] SELF PAY MEDICAID [facility] [id number] SP [id number] BLUE [place]OSS [id number] SP [id number] ANSI-Medicaid [id number] ANSI-Medicaid [id number] ANSI-Medicaid [id number] ANSI-Medicaid [id number] ANSI-Medicaid [id number] ANSI-Medicaid [id number] [facility] [id number] SP [id number] BLUE [place]OSS [id number] SP [id number] ANSI-Medicaid [id number] ANSI-Medicaid [id number] Self Pay P UNAVAILABLE S [facility]) O [id number] S [id number] ANSI-Medicaid [id number] ANSI-Medicaid [id number] ANSI-Medicaid [id number] ANSI-Medicaid [id number] ANSI-Medicaid [id number] ANSI-Medicaid [id number] ANSI-Medicaid [id number] ANSI-Medicaid [id number] ANSI-Medicaid [id number] ANSI-Medicaid [id number] ANSI-Medicaid [id number] ANSI-Medicaid [id number] ANSI-Medicaid [id number] ANSI-Medicaid [id number] ANSI-Medicaid [id number] ANSI-Medicaid [id number] [facility] [id number] SP [id number] [facility] O [id number] S [id number] [facility] Health Maintenance Organization (HMO) [id number] Self [id number] UNAVAILABLE UNAVAILA BLE SELF PAY UNAVAILABLE UNAVAILA BLE MEDICAID [id number] [facility] OFFICE OF MENTAL HEALTH [id number] S [id number] [facility] OFFICE OF MENTAL HEALTH [id number] S [id number] D [facility] O [id number] S [id number] D [facility] S [id number] S [id number] BLUE [place]OSS [place] PLAN [id number] SP [id number] O BLUE [id number] SP [id number] BLUE [id number] Problems, Conditions, and Diagnoses Code Display Name Description Problem Type Effective Dates Data Source(s) F31.9 Bipolar disorder, unspecified Unspecified Bipola r and Related Disorder Condition 12/31/2020 12:00:00 AM EST [facility] ([facility]) F43.12 Post-traumatic stress disorder, chronic Post-traumatic stress disorder, chronic Condition 12/31/2020 12:00:00 AM EST [facility] ([facility]) E78.2 Mixed hyperlipidemia Mixed hyperlipidemia Problem 08/19/2020 12:00:00 AM EDT eCW1 ([facility]) psychiatry psychiatry Diagnosis 01/07/2021 04:51:00 AM [facility] Z71.3 Dietary counseling and surveillance Dietary coun seling and surveillance Diagnosis 09/27/2020 08:41:31 AM [facility] Z68.44 Body mass index (BMI) 60.0-69.9, adult B tono mass index (BMI) 60.0-69.9, adult Diagnosis 09/27/2020 08:41:31 AM [facility] E66.01 Morbid (severe) obesity due to excess ca lories Morbid (severe) obesity due to excess calories Diagnosis 09/27/2020 08:41:31 AM [facility] Surgeries/Procedures Procedure Description Date Indications Data Source(s) Extended Individual Psychotherapy - 45 min 12/31/2020 12:00:00 AM EST - 12/31/2020 12:00:00 AM EST [facility] ([facility]) Extended Individual Psychotherapy - 45 min 12:00:00 AM EST [facility] ([facility]) MHC Telemed E/M Lvl 3--Est pt 12/26/2020 12:00:00 AM EST - 12/26/2020 12:00:00 AM EST [facility] ([facility]) Telemed A/O 30" 12/26/2020 12:00:00 AM EST [facility] ([facility]) MHC Telemed E/M Lvl 3--Est pt 12/26/2020 12:00:[address] [facility] ([facility]) [id number]"Psychotherapy 12:00:00 AM EST - 12/25/2020 12:00:00 AM EST [facility] ([facility]) [id number]"Psychotherapy 12/24/2020 12:00:00 AM EST [facility] ([facility]) Extended Individual Psychotherapy - 45 min 12/03/2020 12:00:00 AM EST - 12/03/2020 12:00:00 AM EST [facility] ([facility]) Extended Individual Psychotherapy - 45 min 12:00:00 AM EST [facility] ([facility]) Extended Individual Psychotherapy - 45 min 11/25/2020 12:00:00 AM EST - 11/25/2020 12:00:00 AM EST [facility] ([facility]) Extended Individual Psychotherapy - 45 min 12:00:00 AM EST [facility] ([facility]) Extended Individual Psychotherapy - 45 min 11/19/2020 12:00:00 AM EST - 11/19/2020 12:00:00 AM EST [facility] ([facility]) Extended Individual Psychotherapy - 45 min 12:00:00 AM EST [facility] ([facility]) OFFICE OUTPATIENT VISIT 15 MINUTES 11/06 12:00:00 AM EST - 11/06/2020 12:00:00 AM EST [facility] ([facility]) Psychotherapy ADD ON - 30 Minutes 11/06/2020 12:00:00 AM EST [facility] ([facility]) OFFICE OUTPATIENT VISIT 15 MINUTES 11/06/2020 12:00:00 AM EST [facility] ([facility]) Extended Individual Psychotherapy - 45 min 11/05/2020 12:00:00 AM EST - 11/05/2020 12:00:00 AM EST [facility] ([facility]) Extended Individual Psychotherapy - 45 min 0 12:00:00 AM EST [facility] ([facility]) Extended Individual Psychotherapy - 45 min 10/22/2020 12:00:00 AM EST - 10/22/2020 12:00:00 AM EST [facility] ([facility]) Extended Individual Psychotherapy - 45 min 0 12:00:00 AM EST [facility] ([facility]) Extended Individual Psychotherapy - 45 min 09/25/2020 12:00:00 AM EST - 09/25/2020 12:00:00 AM EST [facility] ([facility]) Extended Individual Psychotherapy - 45 min 0 12:00:00 AM EST [facility] ([facility]) Extended Individual Psychotherapy - 45 min 09/10/2020 12:00:00 AM EDT - 09/10/2020 12:00:00 AM EDT [facility] ([facility]) Extended Individual Psychotherapy - 45 min 0 12:00:00 AM EDT [facility] ([facility]) MHC Telemed E/M Lvl 3--Est pt 08/27/2020 12:00:00 AM EDT - 08/27/2020 12:00:00 AM EDT [facility] ([facility]) Telemed A/O 30" 08/27/2020 12:00:00 AM EDT [facility] ([facility]) MHC Telemed E/M Lvl 3--Est pt 08/27/2020 12:00:00 AM E DT [facility] ([facility]) ECG ROUTINE ECG W/LEAST 12 LDS W/I&R 08/19/2020 12:00: 00 AM EDT eCW1 ([facility]) [id number]"Psychotherapy 0 12:00:00 AM EDT - 08/19/2020 12:00:00 AM EDT [facility] ([facility]) [id number]"Psychotherapy 08/16/2020 12:00:00 AM EDT [facility] ([facility]) MHC Telemed E/M Lvl 3--Est pt 05/14/2020 12:00:00 AM EDT - 05/14/2020 12:00:00 AM EDT [facility] ([facility]) Telemed A/O 30" 05/14/2020 12:00:00 AM EDT [facility] ([facility]) MHC Telemed E/M Lvl 3--Est pt 05/14/2020 12:00:00 AM E DT [facility] ([facility]) TEMPMHCTelemed 20" psychotherapy 12:00:00 AM EDT - 02/28/2020 12:00:00 AM EDT [facility] ([facility]) TEMPMHCTelemed 20" psychotherapy 02/27/2020 12:00:00 A M EDT [facility] ([facility]) TEMPMHCTelemed 30" Psychotherapy 12:00:00 AM EDT - 02/13/2020 12:00:00 AM EDT [facility] ([facility]) TEMPMHCTelemed 30" Psychotherapy 02/13/2020 12:00:00 A M EDT [facility] ([facility]) TEMPMHCTelemed 30" Psychotherapy 12:00:00 AM EDT - 01/31/2020 12:00:00 AM EDT [facility] ([facility]) TEMPMHCTelemed 30" Psychotherapy 01/30/2020 12:00:00 A M EDT [facility] ([facility]) Extended Individual Psychotherapy - 45 min 01/16/2020 12:00:00 AM EST - 01/16/2020 12:00:00 AM EST [facility] ([facility]) Extended Individual Psychotherapy - 45 min 0 12:00:00 AM EST [facility] ([facility]) OFFICE OUTPATIENT VISIT 15 MINUTES 01/15 12:00:00 AM EST - 01/16/2020 12:00:00 AM EST [facility] ([facility]) OFFICE OUTPATIENT VISIT 15 MINUTES 01/16/2020 12:00:00 AM EST [facility] ([facility]) OFFICE OUTPATIENT VISIT 15 MINUTES 11/17 12:00:00 AM EST - 11/17/2019 12:00:00 AM EST [facility] ([facility]) OFFICE OUTPATIENT VISIT 15 MINUTES 11/17/2019 12:00:00 AM EST [facility] ([facility]) Brief Individual Psychotherapy - 30 min 11/16/2019 12:00:00 AM EST - 11/16/2019 12:00:00 AM EST [facility] ([facility]) Brief Individual Psychotherapy - 30 min 11/14/2019 12: 00:00 AM EST [facility] ([facility]) Results ID Date Data Source [id number] 12/30/2020 12:59:00 PM EST [facility] Name Value Range Interpretation Code Description Data Lisa rce(s) Supporting Document(s) SARS coronavirus 2 RNA [Presence] in Res piratory specimen by CHUCK with probe detection NEGATIVE [facility] This lab was ordered by [facility] a nd reported by [facility]. ID Date Data Source [id number] 09/27/2020 03:56:39 PM EST [facility] Name Value Range Interpretation Code Description Data Lisa rce(s) Supporting Document(s) Progress Note [facility] KVVTZu4wIvNBIeZt71/GITyiNFNff1GeJVbwTKi6AAfpFWPfB0PlEDN8qZ9gRYP3JMcCTvJtMnCmKFCi [facility] [file] ICAgICAgICAgICAgICAgICAgICAgICAgICAgICAgICAgICAgICAgICAgICAgICAgICAgICAgICAgICAg ICAgICAgICAgICAgICAgICAgICAgICAgICAgICAgIC AgICAgICAgDQogICAgICAgICAgICAgICAgICAgICAgICAgICAgICAgICAgICAgICAgICAgICAgICAgIC AgICAgICAgICAgICAgICAgICAgICAgICAgICAgICAgICAgICAgICAgICAgICAgICAgDQogICAgICAgIC AgICAgICAgICAgICAgICAgICAgICAgICAgICAgICAg ICAgICAgICAgICAgICAgICAgICAgICAgICAgICAgICAgICAgICAgICAgICAgICAgICAgICAgICAgICAg DQogICAgICAgICAgICAgICAgICAgICAgICAgICAgICAgICAgICAgICAgICAgICAgICAgICAgICAgICAg ICAgICAgICAgICAgICAgICAgICAgICAgICAgICAgIC AgICAgICAgICAgDQogICAgICAgICAgICAgICAgICAgICAgICAgICAgICAgICAgICAgICAgICAgICAgIC AgICAgICAgICAgICAgICAgICAgICAgICAgICAgICAgICAgICAgICAgICAgICAgICAgICAgDQogICAgIC AgICAgICAgICAgICAgICAgICAgICAgICAgICAgICAg ICAgICAgICAgICAgICAgICAgICAgICAgICAgICAgICAgICAgICAgICAgICAgICAgICAgICAgICAgICAg ICAgDQogICAgICAgICAgICAgICAgICAgICAgICAgICAgICAgICAgICAgICAgICAgICAgICAgICAgICAg ICAgICAgICAgICAgICAgICAgICAgICAgICAgICAgIC AgICAgICAgICAgICAgDQogICAgICAgICAgICAgICAgICAgICAgICAgICAgICAgICAgICAgICAgICAgIC AgICAgICAgICAgICAgICAgICAgICAgICAgICAgICAgICAgICAgICAgICAgICAgICAgICAgICAgDQogIC AgICAgICAgICAgICAgICAgICAgICAgICAgICAgICAg ICAgICAgICAgICAgICAgICAgICAgICAgICAgICAgICAgICAgICAgICAgICAgICAgICAgICAgICAgICAg ICAgICAgDQogICAgICAgICAgICAgICAgICAgICAgICAgICAgICAgICAgICAgICAgICAgICAgICAgICAg ICAgICAgICAgICAgICAgICAgICAgICAgICAgICAgIC PeRFUnRPQpGODoLEHsMQXwEUb4H2ylUSWtCWSyIU2dGAz5Jo0+ZOcTJpZuEPX5meHnzV9AOA1fb7BqBL rgBYYbl6CpYLa5VT6SCNXuFEikSG8ETWrdwq4GRIPtKSKkbOUVm8xlInJtAGT7RHHeHzubMN4SOQScJ2 hewaGlKYLqATBHJG6ROgMoS9BjdC65XUECMt1+DQpl zgOfAcpWNaDwWVXuh2XmFXz4PF7BAUIzGorsn7OmAqSoMANIURycCG0FPMS5DKEvYTGaVl2UJKUbR985 zuWwCF1ZYa2CXjRiRP7wka3WYrTjUBQcVlpZXhf6QSymDM0MmYUoTCfPbt1whsTalbHBh4FyhvRsfBKU NCZsvQRzCURQAFE7bN3eEJGXGTFHLX8cTEIdHTYeOV ZjLnEcQZSbVxjcMPHTWWqPLgQnU2Hjv8TlMhW8IUIcEkVcYRsrRQKnSjU8AL57wEidDJ6AMCArYDMwMW 31AYMsTCNlIi1HAw8HOpYeJQ7bmp7YRsEdJGCkYycZBst9UDgnER2EsOZuE5QcfGEqw3pMRkGsZ7JVLI LtKQPoXm2RRLMgTlGwUNRxUSlsLI4iFZSeWNUBdAbf esL3QI0VRP2znxQsYL6SWrTpVg2pSr4POzDwJ1WaB5GhLCFdBFRZDTdjUL2LIMrgNP0tYY4Eh9NAsWDk wU2duy8KJBXwUHTgDnbtbb3PIgquW2W3iRveJLHoYwIxAFWYCZgrLS6BEXFmVJE0FAMdHWIsTCZDKtGy D84vNR3GW7Dbw63zUtA3NLRdPjOdCUsyLZ62zNtuhy EguBOnbAbdJN4GGj7+PLwurcLdLzfFEcdfJZNJGlKpZxCALlPhSNGhLZSqZLBaXkR5YeQlJv1DBWNfMY GrATPbJyZuGRGlDYUmSLrsWDQgEZZyHmc1CXYjFYByXR5IJySsDTTqEmWjLxntGIEaCICkef8YIEKcYI KlXAR0DsPwZAYvUGLmPIcnWBCxLXKoRSV9AYViEZNh TL7YMoFtFVTbVBTjDvjgXIYlKABxsf3TVRReMORvWYx0QlLbPQZpOQBqWWyxUSBjMQI3UUouKUKpPNRk VU1ESzGdOFSwVOYhYbXgGCDyOFRwaf2YQISwANWpGvQfSUArGPUqGCPeKDztQMIbWKI2SEObRQXtSJZc RU0YMtNaGDQcYZW0APUlNCGuVSNtso8OBZMzELGbJG I2EXEvHOFyGUHuWGgeCVBwKMK3UomzLPNxSPVqZN0AHaOwFQXaZQl8KLCnILRdFXVyap8MKXGlCDZsWI paYSGbGNSkXSSlETzqUMEiNMJ2HVg1HROjKKJqVM7JRaHqPWAdJHb4EhCnCIJlWYOeeu5SMWAmWFJrIZ UmFKKzGPBjTVGvPUoqJWAlDGFuTojjSNKzJOCfUR4V OzTaOPUhRiD7FMkgIILnWMHhua0WRXWpFECyLdHfAtUiVSLoKVQtIAmgEBRmFEVlCKr1JIWhSKCeNR3H HtLxTQAgOpCyUGDkDFNmDYJkjs1TkTCjbEdsrp2AJNmRWx9WqFyiFCC0UBxhPe3lvFWyNYIsGRFKEg6A fkHrSXOwBLQLOTmbHFPmMIC4VTQqAUHmWPyaRSvcFL LvRXW5SxAbUculRaLlHBPdPgX5SpKmIuE2KWAhKQRyXNO8XNMqEPoaR9VpG2CxHfV7BtI+NV4cIAh+Pg 8Ss2JpvyC7nsHjDYyaNmP6Wj1LUDWUH6CGJy== ID Date Data Source CHLAMYDIA & GC DNA AMPLIFICAT 09/05/2020 03:36:13 AM EDT eCW 1 ([facility]) Name Value Range Interpretation Code Description Data Lisa rce(s) Supporting Document(s) Chlamydia trachomatis rRNA [Presence] in Unspecified specimen by Probe and target amplification method NEGATIVE eCW1 ([facility]) ID Date Data Source PAP REQUEST FOR SERVICE 09/04/2020 02:57:17 AM EDT eCW1 ([facility]) Name Value Range Interpretation Code Description Data Lisa rce(s) Supporting Document(s) eCW1 ([facility]) ID Date Data Source LIPID PANEL (CARDIAC RISK) 08/23/2020 11:41:38 AM EDT eCW1 ( [facility]) Name Value Range Interpretation Code Description Data Lisa rce(s) Supporting Document(s) Cholesterol [Moles/volume] in Serum or Plasma 197 CHOLESTEROL LEVEL eCW1 ([facility]) Cholesterol in HDL [Moles/volume] in Serum or Plasma 40 HDL CHOLESTEROL eCW1 ([facility]) Triglyceride [Mass/volume] in Serum or Plasma by calculation 139 TRIGLYCERIDES LEVEL eCW1 ([facility]) 4.925 CHOLESTEROL RISK RATIO eCW1 ([facility]) Cholesterol in LDL [Mass/volume] in Serum or Plasma by calculation 129 LDL CHOLESTEROL eCW1 ([facility]) 157 NON-HDL-C eCW1 ([facility]) ID Date Data Source [id number] 08/23/2020 11:41:38 AM EDT eCW1 ([facility]) Name Value Range Interpretation Code Description Data Lisa rce(s) Supporting Document(s) Hemoglobin A1c/Hemoglobin.total in Blood 5.6 HEMOGLOBIN A1c eCW1 ([facility]) ID Date Data Source FREE T4 & TSH PANEL 08/23/2020 11:41:38 AM EDT eCW1 ([facility]) Name Value Range Interpretation Code Description Data Lisa rce(s) Supporting Document(s) 0.611 THYROID STIMULATING HORMONE eC W1 ([facility]) 1.35 FREE T4 eCW1 ([facility]) ID Date Data Source Comprehensive Metabolic Profile (CMP) 08/23/2020 11:41:38 AM EDT eCW1 ([facility]) Name Value Range Interpretation Code Description Data Lisa rce(s) Supporting Document(s) > 60.0 eCW1 ([facility]) 0.81 CREATININE FOR GFR eCW1 ([facility]) 76 GLUCOSE, FASTING eCW1 ([facility]) 10 BLOOD UREA NITROGEN eCW1 ([facility]) 5.1 POTASSIUM SERUM eCW1 ([facility]) 107 CHLORIDE LEVEL eCW1 ([facility]) 141 SODIUM LEVEL eCW1 ([facility]) 29 CARBON DIOXIDE LEVEL eCW1 ([facility]) 14 AST/SGOT eCW1 ([facility]) 39 ALT/SGPT eCW1 ([facility]) 94 ALKALINE PHOSPHATASE eCW1 ([facility]) 9.1 CALCIUM LEVEL eCW1 ([facility]) 0.4 BILIRUBIN,TOTAL eCW1 ([facility]) 3.5 ALBUMIN eCW1 ([facility]) 7.0 TOTAL PROTEIN eCW1 ([facility]) 1.0 ALBUMIN/GLOBULIN RATIO eCW1 ([facility]) Procedure Social History Code Duration Value Status Description Data Source(s ) Smoking 12/31/2020 12:00:00 AM EST Unknown if ever smoked comp leted Unknown if ever smoked [facility] ([facility]) Smoking 12/26/2020 12:00:00 AM EST Unknown if ever smoked comp leted Unknown if ever smoked [facility] ([facility]) Smoking 12/25/2020 12:00:00 AM EST Unknown if ever smoked comp leted Unknown if ever smoked [facility] ([facility]) Smoking 12/03/2020 12:00:00 AM EST Unknown if ever smoked comp leted Unknown if ever smoked [facility] ([facility]) Smoking 11/26/2020 12:00:00 AM EST Never Smoker completed Never S aleker eCW1 ([facility]) Smoking 11/25/2020 12:00:00 AM EST Unknown if ever smoked comp leted Unknown if ever smoked [facility] ([facility]) Smoking 11/19/2020 12:00:00 AM EST Unknown if ever smoked comp leted Unknown if ever smoked [facility] ([facility]) Smoking 11/06/2020 12:00:00 AM EST Unknown if ever smoked comp leted Unknown if ever smoked [facility] ([facility]) Smoking 11/05/2020 12:00:00 AM EST Unknown if ever smoked comp leted Unknown if ever smoked [facility] ([facility]) Smoking 10/22/2020 12:00:00 AM EST Unknown if ever smoked comp leted Unknown if ever smoked [facility] ([facility]) Smoking 09/25/2020 12:00:00 AM EST Unknown if ever smoked comp leted Unknown if ever smoked [facility] ([facility]) Smoking 09/10/2020 12:00:00 AM EDT Unknown if ever smoked comp leted Unknown if ever smoked [facility] ([facility]) Alcohol intake 09/06/2020 12:00:00 AM EDT Lifetime non-drinker (finding) completed Lifetime non-drinker (finding) [facility] Tobacco use and exposure 09/06/2020 12:00:00 AM EDT Never used co mpleted Never used [facility] Smoking 09/06/2020 12:00:00 AM EDT Never smoker completed Never s [facility] Smoking 08/28/2020 12:00:00 AM EDT Never Smoker completed Never S moker eCW1 ([facility]) Smoking 08/28/2020 12:00:00 AM EDT Never Smoker completed Never S moker eCW1 ([facility]) Smoking 08/28/2020 12:00:00 AM EDT Never Smoker completed Never S moker eCW1 ([facility]) Smoking 08/28/2020 12:00:00 AM EDT Never Smoker completed Never S moker eCW1 ([facility]) Smoking 08/28/2020 12:00:00 AM EDT Never Smoker completed Never S mukul eCW1 ([facility]) Smoking 08/27/2020 12:00:00 AM EDT Unknown if ever smoked comp leted Unknown if ever smoked [facility] ([facility]) Smoking 08/19/2020 12:00:00 AM EDT Unknown if ever smoked comp leted Unknown if ever smoked [facility] ([facility]) Smoking 05/14/2020 12:00:00 AM EDT Unknown if ever smoked comp leted Unknown if ever smoked [facility] ([facility]) Smoking 02/28/2020 12:00:00 AM EDT Unknown if ever smoked comp leted Unknown if ever smoked [facility] ([facility]) Smoking 02/13/2020 12:00:00 AM EDT Unknown if ever smoked comp leted Unknown if ever smoked [facility] ([facility]) Smoking 01/31/2020 12:00:00 AM EDT Unknown if ever smoked comp leted Unknown if ever smoked [facility] ([facility]) Smoking 01/16/2020 12:00:00 AM EST Unknown if ever smoked comp leted Unknown if ever smoked [facility] ([facility]) Smoking 11/17/2019 12:00:00 AM EST Unknown if ever smoked comp leted Unknown if ever smoked [facility] ([facility]) Smoking 11/16/2019 12:00:00 AM EST Unknown if ever smoked comp leted Unknown if ever smoked [facility] ([facility]) Vital Signs ID Date Data Source UNK Name Value Range Interpretation Code Description Data Source(s) Diastolic blood pressure 0 mm[Hg] Normal (applies to non-numeric results) 0 mm[Hg] [facility] ([facility]) Systolic blood pressure 0 mm[Hg] Normal (applies t o non-numeric results) 0 mm[Hg] [facility] ([facility]) Body mass index (BMI) [Ratio] 0.00 kg/m2 No rmal (applies to non-numeric results) 0.00 kg/m2 [facility] ([facility]) Body weight Measured 0.00 lbs Normal (applies to n on-numeric results) 0.00 lbs [facility]) Body height 0.00 in Normal (applies to non-numeric resu lts) 0.00 in [facility] ([facility]) Diastolic blood pressure 76 mm[Hg] 76 mm[Hg] eCW1 ([facility]) Systolic blood pressure 124 mm[Hg] 124 mm[Hg] e CW1 ([facility]) Body temperature 97 [degF] 97 [degF] eCW1 ([facility]) Respiratory rate 18 /min 18 /min eCW1 ([facility]) Heart rate 111 /min 111 /min eCW1 ([facility]) Body mass index (BMI) [Ratio] 64.12 kg/m2 64.12 kg/m2 W1 ([facility]) Body height 63 [in_i] 63 [in_i] eCW1 ([facility]) Body weight 362 [lb_av] 362 [lb_av] eCW1 ([facility]) Diastolic blood pressure 0 mm[Hg] Normal (applies to non-numeric results) 0 mm[Hg] [facility] ([facility]) Systolic blood pressure 0 mm[Hg] Normal (applies t o non-numeric results) 0 mm[Hg] [facility] ([facility]) Body mass index (BMI) [Ratio] 0.00 kg/m2 No rmal (applies to non-numeric results) 0.00 kg/m2 [facility] Body weight Measured 0.00 lbs Normal (applies to n on-numeric results) 0.00 lbs [facility]) Body height 0.00 in Normal (applies to non-numeric resu lts) 0.00 in [facility] ([facility]) Diastolic blood pressure 76 mm[Hg] 76 mm[Hg] eCW1 ([facility]) Systolic blood pressure 126 mm[Hg] 126 mm[Hg] e CW1 ([facility]) Body mass index (BMI) [Ratio] 65.54 kg/m2 65.54 kg/m2 eCW1 ([facility]) Body height 63 [in_i] 63 [in_i] eCW1 ([facility]) Body weight 370 [lb_av] 370 [lb_av] eCW1 ([facility]) Diastolic blood pressure 0 mm[Hg] Normal (applies to non-numeric results) 0 mm[Hg] [facility] ([facility]) Systolic blood pressure 0 mm[Hg] Normal (applies t o non-numeric results) 0 mm[Hg] [facility] ([facility]) Body mass index (BMI) [Ratio] 0.00 kg/m2 No rmal (applies to non-numeric results) 0.00 kg/m2 [facility] ([facility]) Body weight Measured 0.00 lbs Normal (applies to n on-numeric results) 0.00 lbs [facility]) Body height 0.00 in Normal (applies to non-numeric resu lts) 0.00 in [facility] ([facility]) Diastolic blood pressure 68 mm[Hg] 68 mm[Hg] eCW1 ([facility]) Systolic blood pressure 118 mm[Hg] 118 mm[Hg] e CW1 ([facility]) Body temperature 97.5 [degF] 97.5 [degF] eCW1 ( [facility]) Respiratory rate 18 /min 18 /min eCW1 ([facility]) Heart rate 113 /min 113 /min eCW1 ([facility]) Body mass index (BMI) [Ratio] 65.50 kg/m2 65.50 kg/m2 eCW1 ([facility]) Body height 63 [in_i] 63 [in_i] eCW1 ([facility]) Body weight 369.8 [lb_av] 369.8 [lb_av] eCW1 ([facility]) Diastolic blood pressure 0 mm[Hg] Normal (applies to non-numeric results) 0 mm[Hg] [facility] ([facility]) Systolic blood pressure 0 mm[Hg] Normal (applies t o non-numeric results) 0 mm[Hg] [facility] ([facility]) Body mass index (BMI) [Ratio] 0.00 kg/m2 No rmal (applies to non-numeric results) 0.00 kg/m2 [facility] ([facility]) Body weight Measured 0.00 lbs Normal (applies to n on-numeric results) 0.00 lbs [facility] ([facility]) Body height 0.00 in Normal (applies to non-numeric resu lts) 0.00 in [facility] ([facility]) Diastolic blood pressure 0 mm[Hg] Normal (applies to non-numeric results) 0 mm[Hg] [facility] ([facility]) Systolic blood pressure 0 mm[Hg] Normal (applies t o non-numeric results) 0 mm[Hg] [facility] ([facility]) Body mass index (BMI) [Ratio] 0.00 kg/m2 No rmal (applies to non-numeric results) 0.00 kg/m2 [facility] ([facility]) Body weight Measured 0.00 lbs Normal (applies to n on-numeric results) 0.00 lbs [facility] ([facility]) Body height 0.00 in Normal (applies to non-numeric resu lts) 0.00 in [facility] ([facility]) Diastolic blood pressure 0 mm[Hg] Normal (applies to non-numeric results) 0 mm[Hg] [facility] ([facility]) Systolic blood pressure 0 mm[Hg] Normal (applies t o non-numeric results) 0 mm[Hg] [facility] ([facility]) Body mass index (BMI) [Ratio] 0.00 kg/m2 No rmal (applies to non-numeric results) 0.00 kg/m2 [facility] ([facility]) Body weight Measured 0.00 lbs Normal (applies to n on-numeric results) 0.00 lbs [facility] ([facility]) Body height 0.00 in Normal (applies to non-numeric resu lts) 0.00 in [facility] ([facility]) ID Date Data Source [id number] 01/07/2021 04:51:09 AM [facility] Name Value Range Interpretation Code Description Data Source(s) TRANSFER FROM [facility] Patient Treatment Plan of Care Planned Activity Planned Date Details Description Data Source (s) Ortho Tri-Cyclen Lo 0.18/0.215/0.25 MG-25 MCG 08/28/2020 12:00:00 A M EDT eCW1 ([facility]) Ortho Tri-Cyclen Lo 0.18/0.215/0.25 MG-25 MCG 08/28/2020 12:00:00 A M EDT eCW1 ([facility]) Ortho Tri-Cyclen Lo 0.18/0.215/0.25 MG-25 MCG 08/28/2020 12:00:00 A M EDT eCW1 ([facility]) Ortho Tri-Cyclen Lo 0.18/0.215/0.25 MG-25 MCG 08/28/2020 12:00:00 A M EDT eCW1 ([facility]) Ortho Tri-Cyclen Lo 0.18/0.215/0.25 MG-25 MCG 08/28/2020 12:00:00 A M EDT eCW1 ([facility]) Hydrochlorothiazide 12.5 MG Oral Tablet 08/19/2020 12:00:00 AM EDT eCW1 ([facility]) Hydrochlorothiazide 12.5 MG Oral Tablet 08/19/2020 12:00:00 AM EDT eCW1 ([facility]) Hydrochlorothiazide 12.5 MG Oral Tablet 08/19/2020 12:00:00 AM EDT eCW1 ([facility]) Hydrochlorothiazide 12.5 MG Oral Tablet 08/19/2020 12:00:00 AM EDT eCW1 ([facility])
[2021-01-07 15:36] VITALS: BP 154/90
--- NOTE | 2021-01-07 16:46 | ECGEPIP ---
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
[2021-01-07] MEDS ORDERED: traZODone 50 MG TAB PO SCH (21:00)
[2021-01-07] MEDS ORDERED: PRAZOSIN 1 MG CAP PO SCH (21:00)
[2021-01-08 06:00] VITALS: BP 119/56
[2021-01-08] MEDS: buPROPion **XL** TABLET 150MG (WELLBUTRIN XL) PO SCH ×2 (09:39)
[2021-01-08] MEDS: ARIPiprazole 10 MG TAB PO SCH (09:39)
[2021-01-08] MEDS: VITAMIN D 1,000 INTERNATIONAL UNITS TABLET PO SCH (09:39)
[2021-01-08 17:55] VITALS: BP 130/66
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
[2021-01-08] MEDS ORDERED: NYSTATIN 100,000 UNITS/GM TOPICAL PWD 15 GM TOP PRN (20:50)
[2021-01-08] MEDS: PRAZOSIN 1 MG CAP PO SCH (21:00)
[2021-01-09] MEDS ORDERED: UNRESOLVED CLARIFICATION ENTRY XX SCH (00:01)
[2021-01-09 06:05] VITALS: BP 121/75
[2021-01-09] MEDS: LEVOTHYROXINE 50MCG TABLET (0.05MG) PO SCH (06:17)
[2021-01-09] MEDS: ARIPiprazole 10 MG TAB PO SCH (09:31)
[2021-01-09] MEDS: hydroCHLOROthiazide 12.5 MG CAPSULE PO SCH (09:31)
[2021-01-09] MEDS: VITAMIN D 1,000 INTERNATIONAL UNITS TABLET PO SCH (09:31)
[2021-01-09] MEDS: buPROPion **XL** TABLET 150MG (WELLBUTRIN XL) PO SCH (09:32)
--- NOTE | 2021-01-09 14:28 | MHIPNPDOC ---
[facility] Progress Note Progress Note DATE OF SERVICE: 01/09/21 HISTORY: Patient is a 20 -year-old , female, who reports that she was cutting herself again, feeling depressed and anxious, down and lonely. States that her stressor is her cousin moving to [place]. VITAL SIGNS: See below. CURRENT MEDICATIONS: See below. MENTAL STATUS EXAMINATION: Patient is a 20 -year-old , female, who reports that she was cutting h erself again, feeling depressed and anxious, down and lonely. States that her stressor is her cousin moving to [place]. General Appearance: disheveled, appears stated age, hospital scrubs/clothing Build: overweight Demeanor: withdrawn, guarded Eye Contact: poor Activity: slowed Behavior: withdrawn Speech: slow, low in volume Mood: depressed Affect: constricted Thought Process: logical/linear Thought Content (Delusions): none reported Thought Content (Other): none reported Thought Content (Aggressive): none reported Perception (Hallucinations): none reported Perception (Other): none reported Cognition (Impairment of): none reported Cognition(Intelligence Est.): average Oriented: Awake, Alert, Oriented times three Insight: fair Judgment: Fair Psychosis: Denies DIAGNOSES: PTSD Bipolar Disorder, Depressed Unspecified Anxiety Disorder Borderline Personality ASSESSMENT: Patient continues to be withdrawn and isolative. She denies depression, anxiety, suicidal ideation planning or intent and is requesting to be discharged today, I have reinforced with the patient that on this occurrence she stated that she lied about being stable for discharge on her last admission and being discharged on this early date she would increase her risk of readmission due to being unstable. She denied this. Patient reports strong ideation to cut while hospitalized. I do not believe that patient is stable for discharge and with her continued thoughts of harm discharging her home would elevate her risk. MANAGEMENT PLAN: Patient will be continued on her home medications, will titrate any that needs to be adjusted. Patient is reporting feeling depressed because her cousin is moving. I do not believe that this constitutes adjusting her medication. She has depression mainly due to her self esteem secondary to her obesity. Patient to continue with individual therapy sessions and encourage group therapy. TIME SPENT: 30 minutes. Vital Signs Vital Signs Date Time Temp Pulse Resp B/P (MAP) Pulse Ox O2 Delivery O2 Flow Rate FiO2 01/09/21 06:05 98.7 87 16 121/75 (90) 99 Room Air Current Medications Current Medications Medications (Trade) Dose Ordered Sig/Ashlyn Route PRN Reason Start Time Stop Time Status Last Admin Dose Admin Acetaminophen (Tylenol Tab) 650 mg Q6HP PRN PO HEADACHE or DISCOMFORT 01/07/21 12:45 Al Hydrox/Mg Hydrox/Simethicone (Mylanta) 30 ml Q4HP PRN PO HEARTBURN/INDIGESTION 01/07/21 12:45 Aripiprazole (AbiLIFY) 10 mg DAILY PO 01/07/21 09:00 01/08/21 09:44 DC 01/08/21 09:39 Aripiprazole (AbiLIFY) 10 mg DAILY PO 01/09/21 09:00 01/09/21 09:31 Bupropion HCl (Wellbutrin Xl) 150 mg DAILY PO 01/07/21 09:00 01/08/21 09:44 DC 01/08/21 09:39 Bupropion HCl (Wellbutrin Xl) 300 mg DAILY PO 01/07/21 09:00 01/08/21 09:44 DC 01/08/21 09:39 Bupropion HCl (Wellbutrin Xl) 450 mg DAILY PO 01/09/21 09:00 01/09/21 09:32 Home Med (Med Rec Complete!) ASDIRECTED XX 01/07/21 05:00 01/07/21 05:00 DC Hydrochlorothiazide (Hydrodiuril) 12.5 mg DAILY PO 01/07/21 09:00 01/08/21 09:44 DC 01/07/21 08:50 Hydrochlorothiazide (Hydrodiuril) 12.5 mg DAILY PO 01/09/21 09:00 01/09/21 09:31 Levothyroxine Sodium (Synthroid) 50 mcg DAILY@06 PO 01/09/21 06:00 01/09/21 06:17 Levothyroxine Sodium (Synthroid) 50 mcg QAM PO 01/07/21 09:00 01/08/21 09:44 DC 01/07/21 08:50 Magnesium Hydroxide (Milk Of Magnesia) 30 ml DAILYPRN PRN PO CONSTIPATION 01/07/21 12:45 01/08/21 09:44 DC Miscellaneous (Unresolved Clarification Entry) SEE LABEL COMMENTS UNRESOLVED XX 01/09/21 00:01 01/08/21 20:56 DC Nystatin (Mycostatin Powder, Nystop) APPLY DIRECTED ... BIDP PRN TOP RASH/ITCHING 01/08/21 20:50 Prazosin HCl (Minipress) 5 mg QHS PO 01/08/21 21:00 Prazosin HCl (Minipress) 10 mg QHS PO 01/07/21 21:00 01/08/21 09:44 DC 01/07/21 20:41 Trazodone HCl (Desyrel) 50 mg QHS PO 01/07/21 21:00 01/08/21 09:44 DC 01/07/21 20:40 Trazodone HCl (Desyrel) 50 mg QHSP PRN PO INSOMNIA 01/07/21 12:45 Vitamin D (Vitamin D) 1,000 units DAILY PO 01/07/21 09:00 01/08/21 09:44 DC 01/08/21 09:39 Vitamin D (Vitamin D) 1,000 units DAILY PO 01/09/21 09:00 01/09/21 09:31 Allergies Coded Allergies: No Known Allergies (Verified , 10/06/20) CASSIUS GUERRA NP Jan 09, 2021 14:16
[2021-01-09 19:12] VITALS: BP 150/72
--- NOTE | 2021-01-09 20:30 | HPEPDOC ---
General Date of Admission Jan 07, 2021 at 12:42 Date of Service: Jan 09, 2021 Chief Complaint The patient is a 20-year-old female admitted with a reason for visit of Unspecified Depressive Disorder. History of Present Illness Patient is a 20 -year-old , female, who reports that she was cutting herself again, feeling depressed and anxious, down and lonely. She was depressed and she attempted suicide via cutting prior to calling the police. She is being medically examined today. Denied any medical complaints today. Home Medications Scheduled Aripiprazole (Aripiprazole) 10 Mg Tablet, 10 MG PO DAILY, (Reported) Bupropion HCl (Bupropion Xl) 300 Mg Tab.er.24h, 300 MG PO DAILY, (Reported) TAKES WITH 150MG FOR 450MG TOTAL Bupropion Hcl (Bupropion Xl) 150 Mg Tab.er.24h, 150 MG PO DAILY, (Reported) TAKES WITH 300MG FOR 450MG TOTAL Cholecalciferol (Vitamin D3) (Vitamin D3) 1,000 Unit Tablet, 1,000 UNITS PO DAILY, (Reported) Hydrochlorothiazide (Hydrochlorothiazide) 12.5 Mg Tablet, 12.5 MG PO DAILY, (Reported) Levothyroxine Sodium (Levothyroxine Sodium) 50 Mcg Tablet, 50 MCG PO QAM, (Reported) Prazosin Hcl (Prazosin HCl) 5 Mg Capsule, 10 MG PO QHS, (Reported) Trazodone HCl (Trazodone HCl) 50 Mg Tablet, 50 MG PO QHS, (Reported) Scheduled PRN Nystatin (Nystatin Powder) 15 Gm Powder, 1 APLCT TOP BID PRN for RASH/ITCHING, (Reported) APPLY TO ABDOMEN/GROIN Allergies Coded Allergies: No Known Allergies (Verified , 10/06/20) Past Medical History Medical History Depression / Anxiety / Bipolar / PTSD / Borderline personality, Hx of Suicidal attempts (Overdose with pills and Cutting), HTN, Hypothyroidism, Chronic constipation, Vitamin D deficiency, Hx of Ovarian Cyst, Acanthosis nigricans, Super morbid obesity (BMI of 63.9) Surgical History Right salpingo-oophorectomy and appendectomy at the age of 10 Family History Mother with no significant medical problems Father with a history of hypertension, high cholesterol, diabetes a Social History * Smoker: Denies Alcohol: Denies Drugs: denies A-FIB/CHADSVASC A-FIB History Current/History of A-Fib/PAF?: No Review of Systems Constitutional: Denies: Chills, Fever, Night Sweats Eyes: Denies: Pain, Vision change ENT: Denies: Head Aches, Ear Pain, Dysphagia Skin: Denies: Rash, Lesions, Breakdown Pulmonary: Denies: Dyspnea, Cough Cardiovascular: Denies: Chest Pain, Palpitations, Orthopnea, Paroxysmal Noc. Dyspnea, Lt Headedness Gastrointestinal: Denies: Nausea, Vomiting, Abdominal Pain, Diarrhea Genitourinary: Denies: Dysuria, Frequency, Incontinence, Retention Hematologic: Denies: Bruising, Bleeding Excessively Musculoskeletal: Denies: Neck Pain, Back Pain, Joint Pain, Muscle Pain, Spasms Neurological: Denies: Weakness, Numbness, Change in speech, Confusion Psych: Reports: Depression, Thoughts of Self Harm; Denies: Memory Issues Physical Examination General Exam: Positive: Alert, Cooperative, No Acute Distress Eye Exam: Positive: PERRLA, Conjunctiva & lids normal, EOMI; Negative: Sclera icteric ENT Exam: Positive: Atraumatic, Mucous membr. moist/pink, Pharynx Normal Neck Exam: Positive: Supple; Negative: thyromegaly Chest Exam: Positive: Clear to auscultation, Normal air movement Heart Exam: Positive: Rate Normal, Regular Rhythm, Normal S1, Normal S2; Negative: Murmurs, Rubs Abdomen Exam: Positive: Normal bowel sounds, Soft, Other (very obese abdomen); Negative: Tenderness Extremity Exam: Negative: Clubbing, Cyanosis, Edema Psych Exam: Positive: Memory Intact, Oriented x 3 Vital Signs Vital Signs Date Time Temp Pulse Resp B/P (MAP) Pulse Ox O2 Delivery O2 Flow Rate FiO2 01/09/21 06:05 98.7 87 16 121/75 (90) 99 Room Air Laboratory Data Microbiology Microbiology 01/07/21 Respiratory Virus Panel (PCR) (ANTONELLA) - Final, Complete Assessment/Plan 20 year old female admitted for depression and suicidal Behavior to [facility]. She is being medically examined today. Depression / Anxiety / Bipolar / PTSD / Borderline personality, As per psychiatry HTN HCTZ Hypothyroidism Synthroid No active medical issues at present. Plan / VTE VTE Prophylaxis Ordered?: No CAMELIA ROD MD Jan 09, 2021 17:28
[2021-01-09] MEDS: PRAZOSIN 1 MG CAP PO SCH ×2 (21:00→22:16)
[2021-01-09] MEDS: traZODone 50 MG TAB PO PRN (22:15)
[2021-01-10] MEDS: LEVOTHYROXINE 50MCG TABLET (0.05MG) PO SCH (05:56)
[2021-01-10 06:05] VITALS: BP 119/68
[2021-01-10] MEDS: VITAMIN D 1,000 INTERNATIONAL UNITS TABLET PO SCH (09:18)
[2021-01-10] MEDS: hydroCHLOROthiazide 12.5 MG CAPSULE PO SCH (09:18)
[2021-01-10] MEDS: ARIPiprazole 10 MG TAB PO SCH (09:18)
[2021-01-10] MEDS: buPROPion **XL** TABLET 150MG (WELLBUTRIN XL) PO SCH (09:18)
--- NOTE | 2021-01-10 14:33 | MHIPNPDOC ---
[facility] Progress Note Progress Note DATE OF SERVICE: 01/10/21 HISTORY: 20-year-old female with long history of numerous admissions and cutting self and chronic depression. VITAL SIGNS: See below. NEW TEST RESULTS: None. CURRENT MEDICATIONS: See below. MENTAL STATUS EXAMINATION: Patient is a 20-year old female, who is suffering from chronic depression and self-destructive behaviors. Speech: Is. Normal. Language skills are intact. Thought processes including: Not caring about life. Thought content: As above. Abstract reasoning, and computation: Able to abstract. Description of associations:. No loose associations. Description of abnormal or psychotic thoughts:. No psychotic thought. Judgment: Poor Insight: Poor. Orientation: 3. Recent and remote memory:. Intact. Attention span and concentration:. No obvious disturbance. Language:. No abnormality. Fund of knowledge: Limited. Mood: Euthymic. Affect: Flat DIAGNOSES: 1. Chronic depression. 2., Personality disorder. ASSESSMENT: As above MANAGEMENT PLAN: Observation. No change in meds. TIME SPENT:, 30 minutes. Vital Signs Vital Signs Date Time Temp Pulse Resp B/P (MAP) Pulse Ox O2 Delivery O2 Flow Rate FiO2 01/10/21 06:05 98.6 101 20 119/68 (85) 98 Room Air Current Medications Current Medications Medications (Trade) Dose Ordered Sig/Ashlyn Route PRN Reason Start Time Stop Time Status Last Admin Dose Admin Acetaminophen (Tylenol Tab) 650 mg Q6HP PRN PO HEADACHE or DISCOMFORT 01/07/21 12:45 Al Hydrox/Mg Hydrox/Simethicone (Mylanta) 30 ml Q4HP PRN PO HEARTBURN/INDIGESTION 01/07/21 12:45 Aripiprazole (AbiLIFY) 10 mg DAILY PO 01/07/21 09:00 01/08/21 09:44 DC 01/08/21 09:39 Aripiprazole (AbiLIFY) 10 mg DAILY PO 01/09/21 09:00 01/10/21 09:18 Bupropion HCl (Wellbutrin Xl) 150 mg DAILY PO 01/07/21 09:00 01/08/21 09:44 DC 01/08/21 09:39 Bupropion HCl (Wellbutrin Xl) 300 mg DAILY PO 01/07/21 09:00 01/08/21 09:44 DC 01/08/21 09:39 Bupropion HCl (Wellbutrin Xl) 450 mg DAILY PO 01/09/21 09:00 01/10/21 09:18 Home Med (Med Rec Complete!) ASDIRECTED XX 01/07/21 05:00 01/07/21 05:00 DC Hydrochlorothiazide (Hydrodiuril) 12.5 mg DAILY PO 01/07/21 09:00 01/08/21 09:44 DC 01/07/21 08:50 Hydrochlorothiazide (Hydrodiuril) 12.5 mg DAILY PO 01/09/21 09:00 01/10/21 09:18 Levothyroxine Sodium (Synthroid) 50 mcg DAILY@06 PO 01/09/21 06:00 01/10/21 05:56 Levothyroxine Sodium (Synthroid) 50 mcg QAM PO 01/07/21 09:00 01/08/21 09:44 DC 01/07/21 08:50 Magnesium Hydroxide (Milk Of Magnesia) 30 ml DAILYPRN PRN PO CONSTIPATION 01/07/21 12:45 01/08/21 09:44 DC Miscellaneous (Unresolved Clarification Entry) SEE LABEL COMMENTS UNRESOLVED XX 01/09/21 00:01 01/08/21 20:56 DC Nystatin (Mycostatin Powder, Nystop) APPLY DIRECTED ... BIDP PRN TOP RASH/ITCHING 01/08/21 20:50 Prazosin HCl (Minipress) 5 mg QHS PO 01/08/21 21:00 01/09/21 22:16 Prazosin HCl (Minipress) 10 mg QHS PO 01/07/21 21:00 01/08/21 09:44 DC 01/07/21 20:41 Trazodone HCl (Desyrel) 50 mg QHS PO 01/07/21 21:00 01/08/21 09:44 DC 01/07/21 20:40 Trazodone HCl (Desyrel) 50 mg QHSP PRN PO INSOMNIA 01/07/21 12:45 01/09/21 22:15 Vitamin D (Vitamin D) 1,000 units DAILY PO 01/07/21 09:00 01/08/21 09:44 DC 01/08/21 09:39 Vitamin D (Vitamin D) 1,000 units DAILY PO 01/09/21 09:00 01/10/21 09:18 Allergies Coded Allergies: No Known Allergies (Verified , 10/06/20) ROSA SHERIFF MD Jan 10, 2021 14:33
[2021-01-10] MEDS: PRAZOSIN 1 MG CAP PO SCH (20:20)
[2021-01-11] MEDS: LEVOTHYROXINE 50MCG TABLET (0.05MG) PO SCH (06:14)
[2021-01-11 06:30] VITALS: BP 126/75
[2021-01-11] MEDS: VITAMIN D 1,000 INTERNATIONAL UNITS TABLET PO SCH (09:14)
[2021-01-11] MEDS: ARIPiprazole 10 MG TAB PO SCH (09:14)
[2021-01-11] MEDS: hydroCHLOROthiazide 12.5 MG CAPSULE PO SCH (09:14)
[2021-01-11] MEDS: buPROPion **XL** TABLET 150MG (WELLBUTRIN XL) PO SCH (09:15)
--- NOTE | 2021-01-11 16:04 | MHIPNPDOC ---
[facility] Progress Note Progress Note DATE OF SERVICE: 01/11/21 HISTORY: 20-year-old recently readmitted with suicidal thoughts and self harm involving cutting. VITAL SIGNS: See below. NEW TEST RESULTS:, None. CURRENT MEDICATIONS: See below. MENTAL STATUS EXAMINATION: Patient is a 20-year old female, who is. Recurrent admission with "suicide th oughts.", And self-harm. Speech: Is sparse. Language skills are intact. Thought processes including: Denial. Thought content: Wants to be discharged. Abstract reasoning, and computation:, [place]. Description of associations:, no Loose associations. Description of abnormal or psychotic thoughts: No expression of abnormal or psychotic thought today. Judgment: Poor. Insight:, Poor. Orientation: 3. Recent and remote memory: Intact. Attention span and concentration: No obvious disturbance. Language:. No disturbance. Fund of knowledge: Reasonable. Mood: Euthymic. Affect:, Flat. DIAGNOSES: 1. Recurrent depression. 2. Personality disorder. 3. None. ASSESSMENT: As above MANAGEMENT PLAN:. As per Leigh Ambrose. TIME SPENT: 30 minutes. Vital Signs Vital Signs Date Time Temp Pulse Resp B/P (MAP) Pulse Ox O2 Delivery O2 Flow Rate FiO2 01/11/21 06:30 97.8 116 16 126/75 (92) 96 Room Air Current Medications Current Medications Medications (Trade) Dose Ordered Sig/Ashlyn Route PRN Reason Start Time Stop Time Status Last Admin Dose Admin Acetaminophen (Tylenol Tab) 650 mg Q6HP PRN PO HEADACHE or DISCOMFORT 01/07/21 12:45 Al Hydrox/Mg Hydrox/Simethicone (Mylanta) 30 ml Q4HP PRN PO HEARTBURN/INDIGESTION 01/07/21 12:45 Aripiprazole (AbiLIFY) 10 mg DAILY PO 01/07/21 09:00 01/08/21 09:44 DC 01/08/21 09:39 Aripiprazole (AbiLIFY) 10 mg DAILY PO 01/09/21 09:00 01/11/21 09:14 Bupropion HCl (Wellbutrin Xl) 150 mg DAILY PO 01/07/21 09:00 01/08/21 09:44 DC 01/08/21 09:39 Bupropion HCl (Wellbutrin Xl) 300 mg DAILY PO 01/07/21 09:00 01/08/21 09:44 DC 01/08/21 09:39 Bupropion HCl (Wellbutrin Xl) 450 mg DAILY PO 01/09/21 09:00 01/11/21 09:15 Home Med (Med Rec Complete!) ASDIRECTED XX 01/07/21 05:00 01/07/21 05:00 DC Hydrochlorothiazide (Hydrodiuril) 12.5 mg DAILY PO 01/07/21 09:00 01/08/21 09:44 DC 01/07/21 08:50 Hydrochlorothiazide (Hydrodiuril) 12.5 mg DAILY PO 01/09/21 09:00 01/11/21 09:14 Levothyroxine Sodium (Synthroid) 50 mcg DAILY@06 PO 01/09/21 06:00 01/11/21 06:14 Levothyroxine Sodium (Synthroid) 50 mcg QAM PO 01/07/21 09:00 01/08/21 09:44 DC 01/07/21 08:50 Magnesium Hydroxide (Milk Of Magnesia) 30 ml DAILYPRN PRN PO CONSTIPATION 01/07/21 12:45 01/08/21 09:44 DC Miscellaneous (Unresolved Clarification Entry) SEE LABEL COMMENTS UNRESOLVED XX 01/09/21 00:01 01/08/21 20:56 DC Nystatin (Mycostatin Powder, Nystop) APPLY DIRECTED ... BIDP PRN TOP RASH/ITCHING 01/08/21 20:50 Prazosin HCl (Minipress) 5 mg QHS PO 01/08/21 21:00 01/10/21 20:20 Prazosin HCl (Minipress) 10 mg QHS PO 01/07/21 21:00 01/08/21 09:44 DC 01/07/21 20:41 Trazodone HCl (Desyrel) 50 mg QHS PO 01/07/21 21:00 01/08/21 09:44 DC 01/07/21 20:40 Trazodone HCl (Desyrel) 50 mg QHSP PRN PO INSOMNIA 01/07/21 12:45 01/09/21 22:15 Vitamin D (Vitamin D) 1,000 units DAILY PO 01/07/21 09:00 01/08/21 09:44 DC 01/08/21 09:39 Vitamin D (Vitamin D) 1,000 units DAILY PO 01/09/21 09:00 01/11/21 09:14 Allergies Coded Allergies: No Known Allergies (Verified , 10/06/20) ROSA SHERIFF MD Jan 11, 2021 16:04
[2021-01-11 16:56] VITALS: BP 125/76
[2021-01-11] MEDS: traZODone 50 MG TAB PO PRN (20:51)
[2021-01-11 20:52] VITALS: BP 128/92
[2021-01-11] MEDS: PRAZOSIN 1 MG CAP PO SCH (20:52)
[2021-01-11] MEDS ORDERED: traZODone 50 MG TAB PO ONE (23:45)
[2021-01-11] MEDS ORDERED: OLANZapine ORAL DISINTEGRATING TAB 5MG PO ONE (23:50)
[2021-01-12] MEDS: LEVOTHYROXINE 50MCG TABLET (0.05MG) PO SCH (05:56)
[2021-01-12 06:53] VITALS: BP 116/59
[2021-01-12] MEDS: VITAMIN D 1,000 INTERNATIONAL UNITS TABLET PO SCH (09:34)
[2021-01-12] MEDS: buPROPion **XL** TABLET 150MG (WELLBUTRIN XL) PO SCH (09:34)
[2021-01-12] MEDS: OLANZapine 10 MG TAB PO SCH (09:34)
[2021-01-12] MEDS: hydroCHLOROthiazide 12.5 MG CAPSULE PO SCH (09:34)
--- NOTE | 2021-01-12 17:08 | MHIPNPDOC ---
[facility] Progress Note Progress Note DATE OF SERVICE: 01/12/21 HISTORY: 20-year-old patient with chronic mental difficulties, was readmitted following a discharge in which patient said she was well, but actually went home to get her cell phone and then readmitted. VITAL SIGNS: See below. NEW TEST RESULTS: None. CURRENT MEDICATIONS: See below. MENTAL STATUS EXAMINATION: Patient is a 20-year old female, who is expressing that the higher dose of prazosin was more helpful. Speech: Is impoverished. Language skills are no gross disturbance of language. Thought processes including: Little expression of thought. Thought content:, Some poverty of thought. Abstract reasoning, and computation: [place]. Description of associations:, Loose association. Description of abnormal or psychotic thoughts: No apparent psychotic or expressed abnormal. Judgment: Poor. Insight:, Poor. Orientation: 3. Recent and remote memory: Apparently intact. Attention span and concentration: No apparent disturbance. Language:. No gross abnormality. Fund of knowledge:, Limited. Mood: Good. Affect: Flat. DIAGNOSES: 1.. Chronic schizophrenia. 2., Personality disorder. 3. None. ASSESSMENT: As above MANAGEMENT PLAN:. As per Leigh Ambrose. TIME SPENT: 30 minutes. Vital Signs Vital Signs Date Time Temp Pulse Resp B/P (MAP) Pulse Ox O2 Delivery O2 Flow Rate FiO2 01/12/21 06:53 98.0 105 14 116/59 (78) 95 Room Air Current Medications Current Medications Medications (Trade) Dose Ordered Sig/Ashlyn Route PRN Reason Start Time Stop Time Status Last Admin Dose Admin Acetaminophen (Tylenol Tab) 650 mg Q6HP PRN PO HEADACHE or DISCOMFORT 01/07/21 12:45 Al Hydrox/Mg Hydrox/Simethicone (Mylanta) 30 ml Q4HP PRN PO HEARTBURN/INDIGESTION 01/07/21 12:45 Aripiprazole (AbiLIFY) 10 mg DAILY PO 01/07/21 09:00 01/08/21 09:44 DC 01/08/21 09:39 Aripiprazole (AbiLIFY) 10 mg DAILY PO 01/09/21 09:00 01/11/21 23:47 DC 01/11/21 09:14 Bupropion HCl (Wellbutrin Xl) 150 mg DAILY PO 01/07/21 09:00 01/08/21 09:44 DC 01/08/21 09:39 Bupropion HCl (Wellbutrin Xl) 300 mg DAILY PO 01/07/21 09:00 01/08/21 09:44 DC 01/08/21 09:39 Bupropion HCl (Wellbutrin Xl) 450 mg DAILY PO 01/09/21 09:00 01/12/21 09:34 Home Med (Med Rec Complete!) ASDIRECTED XX 01/07/21 05:00 01/07/21 05:00 DC Hydrochlorothiazide (Hydrodiuril) 12.5 mg DAILY PO 01/07/21 09:00 01/08/21 09:44 DC 01/07/21 08:50 Hydrochlorothiazide (Hydrodiuril) 12.5 mg DAILY PO 01/09/21 09:00 01/12/21 09:34 Levothyroxine Sodium (Synthroid) 50 mcg DAILY@06 PO 01/09/21 06:00 01/12/21 05:56 Levothyroxine Sodium (Synthroid) 50 mcg QAM PO 01/07/21 09:00 01/08/21 09:44 DC 01/07/21 08:50 Magnesium Hydroxide (Milk Of Magnesia) 30 ml DAILYPRN PRN PO CONSTIPATION 01/07/21 12:45 01/08/21 09:44 DC Miscellaneous (Unresolved Clarification Entry) SEE LABEL COMMENTS UNRESOLVED XX 01/09/21 00:01 01/08/21 20:56 DC Nystatin (Mycostatin Powder, Nystop) APPLY DIRECTED ... BIDP PRN TOP RASH/ITCHING 01/08/21 20:50 Olanzapine (ZyPREXA) 20 mg DAILY PO 01/12/21 09:00 01/12/21 09:34 Prazosin HCl (Minipress) 5 mg QHS PO 01/08/21 21:00 01/11/21 20:52 Prazosin HCl (Minipress) 10 mg QHS PO 01/07/21 21:00 01/08/21 09:44 DC 01/07/21 20:41 Trazodone HCl (Desyrel) 50 mg QHS PO 01/07/21 21:00 01/08/21 09:44 DC 01/07/21 20:40 Trazodone HCl (Desyrel) 50 mg QHSP PRN PO INSOMNIA 01/07/21 12:45 01/11/21 23:47 DC 01/11/21 20:51 Trazodone HCl (Desyrel) 100 mg QHSP PRN PO INSOMNIA 01/12/21 20:00 Vitamin D (Vitamin D) 1,000 units DAILY PO 01/07/21 09:00 01/08/21 09:44 DC 01/08/21 09:39 Vitamin D (Vitamin D) 1,000 units DAILY PO 01/09/21 09:00 01/12/21 09:34 Allergies Coded Allergies: No Known Allergies (Verified , 10/06/20) ROSA SHERIFF MD Jan 12, 2021 17:08
[2021-01-12 18:42] VITALS: BP 130/83
[2021-01-12] MEDS ORDERED: traZODone 100 MG TAB PO PRN (20:00)
[2021-01-12] MEDS ORDERED: PRAZOSIN 1 MG CAP PO SCH (21:00)
[2021-01-13] MEDS: LEVOTHYROXINE 50MCG TABLET (0.05MG) PO SCH (06:12)
[2021-01-13 06:31] VITALS: BP 109/54
[2021-01-13] MEDS ORDERED: PRAZ5CAP PO (09:12)
[2021-01-13] MEDS: VITAMIN D 1,000 INTERNATIONAL UNITS TABLET PO SCH (09:26)
[2021-01-13] MEDS: OLANZapine 10 MG TAB PO SCH (09:26)
[2021-01-13] MEDS: hydroCHLOROthiazide 12.5 MG CAPSULE PO SCH (09:26)
[2021-01-13] MEDS: buPROPion **XL** TABLET 150MG (WELLBUTRIN XL) PO SCH (09:26)
--- NOTE | 2021-01-13 12:57 | MHDSPDOC ---
[facility] Discharge Summary Discharge Summary DATE OF ADMISSION: Jan 07, 2021 at 12:42 DATE OF DISCHARGE: Jan 13, 2021 at 11:06 DISCHARGE DIAGNOSES: PTSD Bipolar Disorder, Depressed Unspecified Anxiety Disorder Borderline Personality REASON FOR ADMISSION: Patient is a 20 -year-old , female, who reports that she was cutting herself again, feeling depressed and anxious, down and lonely. States that her stressor is her cousin moving to [place]. CONSULTANTS INVOLVED: See medical h + P by Hospitalist TREATMENT AND PROGRESS ON THE UNIT: Patient was admitted to the [facility] on a 9.39 legal status he was afforded the following treatment modalities: 1) Individual Therapy 2) Group Therapy 3) Medication Management 4) Milieu Therapy 5) Safe Environment HOSPITAL COURSE: Patient admitted to [facility] on a 9.39 legal status - she was continued on her home medications. Initially patient wanted to be discharged on her second day of admission. Treatment team did not feel that she was safe for discharge. She is reporting that she would like to be home. She is requesting discharge DISCHARGE ASSESSMENT: In today's interview, patient is alert and oriented, pts dress is appropriate. Hygiene and grooming is well-kempt. Smiles on approach and is pleasant and engaged in the interview. Denies depression and anxiety. Denies suicidal and homicidal ideation, planning or intent. Denies and is not observed with becky, psychotic symptoms of delusions, bizarre thinking, obsessions, paranoia, ruminations illogical thoughts, flight of ideas or having poor insight and judgement. Patient has normal mentation, declines further hospitalization on a voluntary status and meets criteria for discharge today. Patient encouraged to return to hospital if his symptoms worsen or change and encouraged to call unit if he/she/they needs to speak to provider for questions regarding medications or care. MENTAL STATUS EXAMINATION ON DISCHARGE: Patient is a 20 -year-old , female, who reports that she was cutting herself again, feeling depressed and anxious, down and lonely. Speech: Is fluid, conversant, normal rate, tone and volume Language skills are intact Thought processes including: linear and goal oriented Thought content: denies depression and anxiety. Denies suicidal/homicidal ideation, planning or intent. Abstract reasoning, and computation: fair Description of associations: denies, none observed Description of abnormal or psychotic thoughts: denies, none observed. Judgment: fair Insight: fair Orientation: alert and oriented to person, place, time and situation Recent and remote memory: intact Attention span and concentration: good Language: expansive Fund of knowledge: average Mood: Euthymic Mood Affect: reactive MEDICATIONS ON DISCHARGE: See Medication Reconciliation PLAN/FOLLOWUP ARRANGEMENTS: [facility] The amount of time spent in the coordination of care for this patient was approximately 25 minutes. Vital Signs/I&Os Vital Signs Date Time Temp Pulse Resp B/P (MAP) Pulse Ox O2 Delivery O2 Flow Rate FiO2 01/13/21 06:31 98.1 109 54 109/54 (72) 99 Room Air Laboratory Data Microbiology Microbiology 01/07/21 Respiratory Virus Panel (PCR) (ANTONELLA) - Final, Complete Medications Scheduled Bupropion HCl (Bupropion Xl) 300 Mg Tab.er.24h, 300 MG PO DAILY, (Reported) TAKES WITH 150MG FOR 450MG TOTAL Bupropion Hcl (Bupropion Xl) 150 Mg Tab.er.24h, 150 MG PO DAILY, (Reported) TAKES WITH 300MG FOR 450MG TOTAL Cholecalciferol (Vitamin D3) (Vitamin D3) 1,000 Unit Tablet, 1,000 UNITS PO DAILY, (Reported) Hydrochlorothiazide (Hydrochlorothiazide) 12.5 Mg Tablet, 12.5 MG PO DAILY, (Reported) Levothyroxine Sodium (Levothyroxine Sodium) 50 Mcg Tablet, 50 MCG PO QAM, (Reported) Prazosin Hcl (Prazosin HCl) 5 Mg Capsule, 5 MG PO QHS for Nightmares, #14 Trazodone HCl (Trazodone HCl) 50 Mg Tablet, 50 MG PO QHS, (Reported) Scheduled PRN Nystatin (Nystatin Powder) 15 Gm Powder, 1 APLCT TOP BID PRN for RASH/ITCHING, (Reported) APPLY TO ABDOMEN/GROIN Allergies Coded Allergies: No Known Allergies (Verified , 10/06/20) CASSIUS GUERRA NP Jan 13, 2021 12:57
== END 2021-01-13 11:06 | disposition home or self-care (01) | DRG 753 ==
LOC: M ED 01:58 → M ED INP 12:42 → M PSY 15:02
PROVIDERS: ADMIT Psychiatry & Neurology Child & Adolescent Psychiatry; ATTEND Psychiatry & Neurology Psychiatry
DX: F31.9 Bipolar disorder, unspecified (principal); I10 Essential (primary) hypertension; F43.10 Post-traumatic stress disorder, unspecified; F41.9 Anxiety disorder, unspecified; F60.3 Borderline personality disorder; Z79.899 Other long term (current) drug therapy; E03.9 Hypothyroidism, unspecified

== ENCOUNTER → 2021-03-21 | Outpatient (REF) | payer MEDICAID, OTHER ==
[~2021-03-21] MED LIST changes: +D31000TA2 PO
[2021-03-21 23:21] LABS: BASO % 0.1 % (0.0-1.0); EOS # 0.1 10^3/uL (0.0-0.5); EOS % 0.8 % (0.0-3.0); HEMOGLOBIN 12.8 g/dl (12.0-15.5); LYMPH # 3.2 10^3/uL (1.5-5.0); LYMPH % 35.2 % (24.0-44.0); MEAN CORPUSCULAR HEMOGLOBIN 25.7 pg (27.0-33.0); MEAN CORPUSCULAR HGB CONC 31.2 g/dl (32.0-36.5); MEAN CORPUSCULAR VOLUME 82.3 fl (80.0-96.0); MONO # 0.5 10^3/uL (0.0-0.8); MONO % 5.3 % (2.0-8.0); NEUTROPHILS # 5.3 10^3/uL (1.5-8.5); NEUTROPHILS % 58.3 % (36.0-66.0); PLATELET COUNT, AUTOMATED 318 10^3/uL (150-450); RED BLOOD COUNT 4.98 10^6/uL (4.00-5.40)
[2021-03-21 23:33] LABS: ALBUMIN 3.7 GM/DL (3.2-5.2); ALT/SGPT 30 U/L (12-78); BILIRUBIN,TOTAL 0.4 MG/DL (0.2-1.0); BLOOD UREA NITROGEN 12 MG/DL (7-18); CALCIUM LEVEL 9.4 MG/DL (8.5-10.1); CARBON DIOXIDE LEVEL 29 MEQ/L (21-32); CHLORIDE LEVEL 106 MEQ/L (98-107); CREATININE FOR GFR 0.62 MG/DL (0.55-1.30); GLOMERULAR FILTRATION RATE > 60.0 (>60); GLUCOSE, FASTING 90 MG/DL (70-100); POTASSIUM SERUM 4.3 MEQ/L (3.5-5.1); SODIUM LEVEL 139 MEQ/L (136-145); TOTAL PROTEIN 7.1 GM/DL (6.4-8.2)
== END ==
LOC: M LAB REF 23:12
PROVIDERS: ATTEND Physician Assistant
DX: R11.2 Nausea with vomiting, unspecified (principal)

== ENCOUNTER 2021-04-19 00:30 | Emergency (ER) | payer MEDICAID, OTHER ==
[~2021-04-19] VITALS: Ht 160 cm; Wt 164.3 kg
[2021-04-19 01:41] LABS: HEMATOCRIT 43.3 % (36.0-47.0); HEMOGLOBIN 13.5 g/dl (12.0-15.5); MEAN CORPUSCULAR HEMOGLOBIN 25.8 pg (27.0-33.0); MEAN CORPUSCULAR HGB CONC 31.2 g/dl (32.0-36.5); MEAN CORPUSCULAR VOLUME 82.8 fl (80.0-96.0); PLATELET COUNT, AUTOMATED 342 10^3/uL (150-450); RED BLOOD COUNT 5.23 10^6/uL (4.00-5.40); WHITE BLOOD COUNT 11.9 10^3/uL (4.0-10.0)
[2021-04-19 02:13] LABS: ACETAMINOPHEN LEVEL < 2.0 UG/ML (10.0-30.0); ALBUMIN 3.5 GM/DL (3.2-5.2); ALT/SGPT 39 U/L (12-78); BILIRUBIN,DIRECT 0.1 MG/DL (0.0-0.2); BILIRUBIN,TOTAL 0.4 MG/DL (0.2-1.0); BLOOD UREA NITROGEN 12 MG/DL (7-18); CALCIUM LEVEL 9.3 MG/DL (8.5-10.1); CARBON DIOXIDE LEVEL 29 MEQ/L (21-32); CHLORIDE LEVEL 104 MEQ/L (98-107); CREATININE FOR GFR 0.71 MG/DL (0.55-1.30); ETHYL ALCOHOL (ETHANOL) 0.004 % (0.000-0.010); GLOMERULAR FILTRATION RATE > 60.0 (>60); GLUCOSE, FASTING 92 MG/DL (70-100); POTASSIUM SERUM 4.1 MEQ/L (3.5-5.1); SALICYLATE LEVEL < 1.7 MG/DL (5.0-30.0); SODIUM LEVEL 140 MEQ/L (136-145); THYROID STIMULATING HORMONE 0.673 uIU/ML (0.358-3.740); TOTAL PROTEIN 7.5 GM/DL (6.4-8.2)
[2021-04-19 04:04] LABS: AMPHETAMINES LEVEL URINE NEGATIVE (NEGATIVE); BARBITURATES URINE NEGATIVE (NEGATIVE); BENZODIAZEPINES URINE NEGATIVE (NEGATIVE); CANNABINOIDS URINE NEGATIVE (NEGATIVE); COCAINE METABOLITE URINE NEGATIVE (NEGATIVE); METHADONE URINE NEGATIVE (NEGATIVE); OPIATES URINE NEGATIVE (NEGATIVE); PHENCYCLIDINE URINE NEGATIVE (NEGATIVE)
[2021-04-19] MEDS ORDERED: PRAZ5CAP PO (06:38)
[2021-04-19] MEDS ORDERED: LORA-674 PO (06:38)
[2021-04-19] MEDS ORDERED: BUSP10TA PO (06:38)
[2021-04-19] MEDS ORDERED: TRAZ-189 PO (06:38)
[2021-04-19] MEDS ORDERED: ONDA-83 PO (06:38)
--- NOTE | 2021-04-19 07:47 | ECGEPIP ---
[facility] - ED Test Date: 2021-04-19 Pat Name: CHRIS ZAVALA Department: Room: - Gender: Female Candles Pourer: : 2000 Requested By: CARIE Hobson Order Number: [id number] Reading MD: Jose Parr Measurements Intervals [place] Rate: 93 P: 39 MD: 168 QRS: 36 QRSD: 86 T: 57 QT: 344 QTc: 427 Interpretive Statements Normal sinus rhythm BASELINE ARTIFACT AFFECTS INTERPRETATION Electronically Signed on 04-19-2021 7:47:51 EDT by Jose Parr
[2021-04-19 09:11] LABS: RSV AMPLIFICATION NEGATIVE (NEGATIVE)
[2021-04-19 13:37] VITALS: BP 130/78
== END 2021-04-19 13:42 ==
LOC: M ED 00:30
DX: R45.851 Suicidal ideations (principal)

== ENCOUNTER 2021-04-26 20:55 | Emergency (ER) | payer MEDICAID, OTHER ==
[~2021-04-26] VITALS: Ht 160 cm; Wt 160.5 kg
[~2021-04-26 20:55] MED LIST changes: +BUSP10TA PO; +LORA-674 PO; +ONDA-83 PO; +TRAZ-189 PO
[2021-04-27] MEDS ORDERED: CYCL-707 PO (01:33)
[2021-04-27] MEDS ORDERED: NAPR-837 PO (01:33)
[2021-04-27] MEDS ORDERED: NAPROXEN 250 MG TAB PO ONE (01:35)
[2021-04-27] MEDS ORDERED: CYCLOBENZAPRINE 10MG TABLET PO ONE (01:35)
[2021-04-27 01:46] VITALS: BP 129/86
== END 2021-04-27 01:47 | disposition home or self-care (01) ==
LOC: M ED 20:55
DX: M26.602 Left temporomandibular joint disorder, unspecified (principal)

== ENCOUNTER 2021-05-08 16:12 | Emergency (ER) | payer OTHER ==
[~2021-05-08] VITALS: Ht 160 cm; Wt 166.2 kg
[~2021-05-08 16:12] MED LIST changes: +ARIP10TA32 PO; +CYCL-707 PO; +NAPR-837 PO
[2021-05-08 16:13] VITALS: BP 136/73
== END 2021-05-08 19:55 | disposition left against medical advice (07) ==
LOC: M ED 16:12
DX: Z53.21 Procedure and treatment not carried out due to patient leaving prior to being seen by health care provider (principal)

== ENCOUNTER → 2021-05-09 | Outpatient (CLI) | payer OTHER ==
[2021-05-09 16:19] LABS: BASO % 0.4 % (0.0-1.0); EOS # 0.1 10^3/uL (0.0-0.5); EOS % 1.3 % (0.0-3.0); HEMATOCRIT 38.7 % (36.0-47.0); HEMOGLOBIN 11.8 g/dl (12.0-15.5); LYMPH # 2.7 10^3/uL (1.5-5.0); LYMPH % 39.1 % (24.0-44.0); MEAN CORPUSCULAR HEMOGLOBIN 26.3 pg (27.0-33.0); MEAN CORPUSCULAR HGB CONC 30.5 g/dl (32.0-36.5); MEAN CORPUSCULAR VOLUME 86.4 fl (80.0-96.0); MONO # 0.6 10^3/uL (0.0-0.8); NEUTROPHILS # 3.5 10^3/uL (1.5-8.5); NEUTROPHILS % 50.8 % (36.0-66.0); PLATELET COUNT, AUTOMATED 269 10^3/uL (150-450); RED BLOOD COUNT 4.48 10^6/uL (4.00-5.40); WHITE BLOOD COUNT 6.9 10^3/uL (4.0-10.0)
[2021-05-09 16:56] LABS: ALBUMIN 3.4 GM/DL (3.2-5.2); ALT/SGPT 43 U/L (12-78); BILIRUBIN,TOTAL 0.4 MG/DL (0.2-1.0); BLOOD UREA NITROGEN 14 MG/DL (7-18); CALCIUM LEVEL 8.9 MG/DL (8.5-10.1); CARBON DIOXIDE LEVEL 27 MEQ/L (21-32); CHLORIDE LEVEL 109 MEQ/L (98-107); CK-MB VALUE MASS < 1.0 NG/ML (<3.6); CPK CREATINE PHOSPHOKINASE 150 U/L (26-192); CREATININE FOR GFR 0.61 MG/DL (0.55-1.30); GLOMERULAR FILTRATION RATE > 60.0 (>60); GLUCOSE, FASTING 75 MG/DL (70-100); MAGNESIUM LEVEL 2.3 MG/DL (1.8-2.4); MB/CK RELATIVE INDEX 0.67 (< OR =4); NT-PRO BNP 79 PG/ML (<125); POTASSIUM SERUM 4.7 MEQ/L (3.5-5.1); SODIUM LEVEL 142 MEQ/L (136-145); TOTAL PROTEIN 6.7 GM/DL (6.4-8.2); TROPONIN I < 0.02 NG/ML (< 0.10)
== END ==
LOC: M WUC 14:24
PROVIDERS: ATTEND Nurse Practitioner Family
DX: R60.9 Edema, unspecified (principal)

== ENCOUNTER → 2021-05-13 | Outpatient (CLI) | payer OTHER ==
--- NOTE | 2021-05-13 13:23 | REP ---
INDICATION: COUGH. COMPARISON: 11/19/2018 the latest prior FINDINGS: The superior mediastinal structures are midline. The cardiac silhouette is unremarkable in size, shape, and position. The diaphragmatic surfaces of the lungs are regular, and the costophrenic angles are clear. The pulmonary franks are clear. The imaged osseous structures are intact. IMPRESSION: There is no acute cardiopulmonary disease. <Electronically signed by Surjit Coon > 05/13/21 [id number]
== END ==
LOC: M PLAIMG 12:08
PROVIDERS: ATTEND Physician Assistant
DX: R05 Cough (principal)

== ENCOUNTER → 2021-05-14 | Outpatient (REF) | payer OTHER ==
[~2021-05-14] MED LIST changes: +BACI500O21 TOP; +FURO20TA2 PO; +NAPR-885 PO; +OXCA300T14 PO; +PROAAER10 INH
== END ==
LOC: M SFHCPLAZ 16:59
PROVIDERS: ATTEND Physician Assistant
DX: R11.2 Nausea with vomiting, unspecified (principal); R19.7 Diarrhea, unspecified

== ENCOUNTER 2021-05-23 02:48 | Emergency (ER) | payer OTHER ==
[~2021-05-23] VITALS: Ht 160 cm; Wt 166.0 kg
[~2021-05-23 02:48] MED LIST changes: -BACI500O21 TOP; -FURO20TA2 PO; -NAPR-885 PO; -OXCA300T14 PO; -PROAAER10 INH
[2021-05-23 05:04] LABS: AMPHETAMINES LEVEL URINE NEGATIVE (NEGATIVE); BARBITURATES URINE NEGATIVE (NEGATIVE); BENZODIAZEPINES URINE NEGATIVE (NEGATIVE); CANNABINOIDS URINE NEGATIVE (NEGATIVE); COCAINE METABOLITE URINE NEGATIVE (NEGATIVE); METHADONE URINE NEGATIVE (NEGATIVE); OPIATES URINE NEGATIVE (NEGATIVE); PHENCYCLIDINE URINE NEGATIVE (NEGATIVE)
[2021-05-23 05:21] LABS: HEMATOCRIT 40.3 % (36.0-47.0); HEMOGLOBIN 12.7 g/dl (12.0-15.5); MEAN CORPUSCULAR HEMOGLOBIN 26.4 pg (27.0-33.0); MEAN CORPUSCULAR HGB CONC 31.5 g/dl (32.0-36.5); MEAN CORPUSCULAR VOLUME 83.8 fl (80.0-96.0); PLATELET COUNT, AUTOMATED 301 10^3/uL (150-450); RED BLOOD COUNT 4.81 10^6/uL (4.00-5.40); WHITE BLOOD COUNT 10.2 10^3/uL (4.0-10.0)
[2021-05-23 05:52] LABS: ACETAMINOPHEN LEVEL < 2.0 UG/ML (10.0-30.0); ALBUMIN 3.8 GM/DL (3.2-5.2); ALT/SGPT 41 U/L (12-78); BILIRUBIN,DIRECT 0.1 MG/DL (0.0-0.2); BILIRUBIN,TOTAL 0.4 MG/DL (0.2-1.0); BLOOD UREA NITROGEN 16 MG/DL (7-18); CALCIUM LEVEL 8.7 MG/DL (8.5-10.1); CARBON DIOXIDE LEVEL 31 MEQ/L (21-32); CHLORIDE LEVEL 105 MEQ/L (98-107); CREATININE FOR GFR 0.87 MG/DL (0.55-1.30); ETHYL ALCOHOL (ETHANOL) < 0.003 % (0.000-0.010); GLOMERULAR FILTRATION RATE > 60.0 (>60); GLUCOSE, FASTING 104 MG/DL (70-100); POTASSIUM SERUM 4.1 MEQ/L (3.5-5.1); SALICYLATE LEVEL < 1.7 MG/DL (5.0-30.0); SODIUM LEVEL 140 MEQ/L (136-145); THYROID STIMULATING HORMONE 0.902 uIU/ML (0.358-3.740); TOTAL PROTEIN 7.4 GM/DL (6.4-8.2)
[2021-05-23 05:53] LABS: HCG, SERUM QUALITATIVE NEGATIVE (NEGATIVE)
[2021-05-23] MEDS ORDERED: LEVOTHYROXINE 50MCG TABLET (0.05MG) PO SCH (06:00)
[2021-05-23] MEDS ORDERED: NYST1POW9 TOP (08:58)
[2021-05-23] MEDS ORDERED: HYDR12.55 PO (08:58)
[2021-05-23] MEDS ORDERED: OXCA300T14 PO (08:58)
[2021-05-23] MEDS ORDERED: CYCL-707 PO (08:58)
[2021-05-23] MEDS ORDERED: PROAAER10 INH (08:58)
[2021-05-23] MEDS ORDERED: FURO20TA2 PO (08:58)
[2021-05-23] MEDS ORDERED: NAPR-885 PO (08:58)
[2021-05-23] MEDS ORDERED: OXCA150T21 PO (08:58)
[2021-05-23] MEDS ORDERED: LORATADINE 10 MG TAB PO SCH (09:00)
[2021-05-23] MEDS ORDERED: buPROPion **XL** TABLET 150MG (WELLBUTRIN XL) PO SCH (09:00)
[2021-05-23] MEDS ORDERED: busPIRone 10 MG TAB PO SCH ×2 (09:00)
[2021-05-23] MEDS ORDERED: BACI500O21 TOP (09:46)
[2021-05-23 09:55] VITALS: BP 138/78
== END 2021-05-23 10:01 | disposition home or self-care (01) ==
LOC: M ED 02:48
DX: F43.0 Acute stress reaction (principal); I10 Essential (primary) hypertension; F31.9 Bipolar disorder, unspecified; Z79.51 Long term (current) use of inhaled steroids; Z79.899 Other long term (current) drug therapy

== ENCOUNTER 2021-06-19 16:40 | Emergency (ER) | payer OTHER ==
[~2021-06-19] VITALS: Ht 160 cm; Wt 160.0 kg
[~2021-06-19 16:40] MED LIST changes: +BACI500O21 TOP; +FURO20TA2 PO; -LATU40TA PO; +LATU40TA2 PO; -LATU80TA PO; +LATU80TA2 PO; +NAPR-885 PO; +OXCA300T14 PO; +PROAAER10 INH
[2021-06-19 18:06] LABS: HEMATOCRIT 40.8 % (36.0-47.0); HEMOGLOBIN 12.9 g/dl (12.0-15.5); MEAN CORPUSCULAR HEMOGLOBIN 26.4 pg (27.0-33.0); MEAN CORPUSCULAR HGB CONC 31.6 g/dl (32.0-36.5); MEAN CORPUSCULAR VOLUME 83.6 fl (80.0-96.0); PLATELET COUNT, AUTOMATED 331 10^3/uL (150-450); RED BLOOD COUNT 4.88 10^6/uL (4.00-5.40); WHITE BLOOD COUNT 12.3 10^3/uL (4.0-10.0)
[2021-06-19 18:49] LABS: AMPHETAMINES LEVEL URINE NEGATIVE (NEGATIVE); BARBITURATES URINE NEGATIVE (NEGATIVE); BENZODIAZEPINES URINE NEGATIVE (NEGATIVE); CANNABINOIDS URINE NEGATIVE (NEGATIVE); COCAINE METABOLITE URINE NEGATIVE (NEGATIVE); METHADONE URINE NEGATIVE (NEGATIVE); OPIATES URINE NEGATIVE (NEGATIVE); PHENCYCLIDINE URINE NEGATIVE (NEGATIVE)
[2021-06-19 19:00] LABS: HCG, SERUM QUALITATIVE NEGATIVE (NEGATIVE)
[2021-06-19 19:02] LABS: ALBUMIN 3.5 GM/DL (3.2-5.2); ALT/SGPT 31 U/L (12-78); BILIRUBIN,DIRECT < 0.1 MG/DL (0.0-0.2); BILIRUBIN,TOTAL 0.3 MG/DL (0.2-1.0); BLOOD UREA NITROGEN 13 MG/DL (7-18); CARBON DIOXIDE LEVEL 27 MEQ/L (21-32); CHLORIDE LEVEL 107 MEQ/L (98-107); GLOMERULAR FILTRATION RATE > 60.0 (>60); GLUCOSE, FASTING 110 MG/DL (70-100); SALICYLATE LEVEL < 1.7 MG/DL (5.0-30.0); SODIUM LEVEL 142 MEQ/L (136-145); THYROID STIMULATING HORMONE 0.611 uIU/ML (0.358-3.740); TOTAL PROTEIN 7.3 GM/DL (6.4-8.2)
[2021-06-19 19:03] LABS: ACETAMINOPHEN LEVEL < 2.0 UG/ML (10.0-30.0); ETHYL ALCOHOL (ETHANOL) < 0.003 % (0.000-0.010)
[2021-06-19 20:05] VITALS: BP 173/81
[2021-06-19] MEDS ORDERED: HOME MED LIST COMPLETE! XX SCH (20:30)
[2021-11-14] MEDS ORDERED: MONT10TA97 PO (07:07)
== END 2021-06-19 20:52 | disposition home or self-care (01) ==
LOC: M ED 16:40
DX: F43.0 Acute stress reaction (principal); F43.10 Post-traumatic stress disorder, unspecified; F41.9 Anxiety disorder, unspecified; F31.9 Bipolar disorder, unspecified

== ENCOUNTER 2021-07-08 23:56 | Inpatient (IN) | payer OTHER ==
[~2021-07-08] VITALS: Ht 160 cm; Wt 163.6 kg
[~2021-07-08 23:56] MED LIST changes: +LATU40TA PO; -LATU40TA2 PO; +LATU80TA PO; -LATU80TA2 PO
[2021-07-09 00:35] LABS: HEMOGLOBIN 13.6 g/dl (12.0-15.5); MEAN CORPUSCULAR HEMOGLOBIN 26.6 pg (27.0-33.0); MEAN CORPUSCULAR HGB CONC 31.6 g/dl (32.0-36.5); PLATELET COUNT, AUTOMATED 362 10^3/uL (150-450); RED BLOOD COUNT 5.12 10^6/uL (4.00-5.40); WHITE BLOOD COUNT 14.4 10^3/uL (4.0-10.0)
[2021-07-09 01:19] LABS: BLOOD UREA NITROGEN 13 MG/DL (7-18); CARBON DIOXIDE LEVEL 25 MEQ/L (21-32); CHLORIDE LEVEL 110 MEQ/L (98-107); CREATININE FOR GFR 0.73 MG/DL (0.55-1.30); GLOMERULAR FILTRATION RATE > 60.0 (>60); GLUCOSE, FASTING 104 MG/DL (70-100); POTASSIUM SERUM 4.1 MEQ/L (3.5-5.1); SODIUM LEVEL 142 MEQ/L (136-145)
[2021-07-09 01:20] LABS: ACETAMINOPHEN LEVEL < 2.0 UG/ML (10.0-30.0); ALBUMIN 3.5 GM/DL (3.2-5.2); ALT/SGPT 35 U/L (12-78); BILIRUBIN,DIRECT < 0.1 MG/DL (0.0-0.2); BILIRUBIN,TOTAL 0.3 MG/DL (0.2-1.0); CALCIUM LEVEL 8.6 MG/DL (8.5-10.1); ETHYL ALCOHOL (ETHANOL) < 0.003 % (0.000-0.010); SALICYLATE LEVEL < 1.7 MG/DL (5.0-30.0); TOTAL PROTEIN 7.5 GM/DL (6.4-8.2)
[2021-07-09] MEDS ORDERED: CETI-24 PO (01:40)
[2021-07-09] MEDS ORDERED: HOME MED LIST COMPLETE! XX SCH (01:40)
[2021-07-09 01:46] LABS: HCG, SERUM QUALITATIVE NEGATIVE (NEGATIVE)
[2021-07-09 02:34] LABS: AMPHETAMINES LEVEL URINE NEGATIVE (NEGATIVE); BARBITURATES URINE NEGATIVE (NEGATIVE); BENZODIAZEPINES URINE NEGATIVE (NEGATIVE); CANNABINOIDS URINE NEGATIVE (NEGATIVE); COCAINE METABOLITE URINE NEGATIVE (NEGATIVE); METHADONE URINE NEGATIVE (NEGATIVE); OPIATES URINE NEGATIVE (NEGATIVE); PHENCYCLIDINE URINE NEGATIVE (NEGATIVE)
[2021-07-09 02:47] LABS: RSV AMPLIFICATION NEGATIVE (NEGATIVE)
[2021-07-09] MEDS ORDERED: traZODone 50 MG TAB PO PRN (05:00)
[2021-07-09] MEDS ORDERED: MOM 30ML SUSPENSION UDC PO PRN (05:00)
[2021-07-09] MEDS ORDERED: MAALOX 30 ML SUSP *UDC PO PRN (05:00)
[2021-07-09] MEDS ORDERED: ALBUTEROL 90 MCG/ACT 8GM HFA INHALER INH PRN (05:00)
[2021-07-09] MEDS: LEVOTHYROXINE 50MCG TABLET (0.05MG) PO SCH (06:00)
[2021-07-09] MEDS: VITAMIN D 1,000 INTERNATIONAL UNITS TABLET PO SCH (09:00)
[2021-07-09] MEDS: busPIRone 10 MG TAB PO SCH ×2 (09:00→21:00)
[2021-07-09] MEDS: FUROSEMIDE 20 MG TAB PO SCH (09:00)
[2021-07-09] MEDS: OXcarbazepine 300 MG TAB PO SCH ×2 (09:00→21:00)
[2021-07-09] MEDS: buPROPion **XL** TABLET 150MG (WELLBUTRIN XL) PO SCH (09:00)
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
[2021-07-09] MEDS ORDERED: CYCLOBENZAPRINE 10MG TABLET PO PRN (10:45)
[2021-07-09 10:49] VITALS: BP 140/87
[2021-07-09] MEDS: PRAZOSIN 1 MG CAP PO SCH (21:00)
[2021-07-09] MEDS: CETIRIZINE (ZyrTEC) 10 MG TAB PO SCH (21:00)
[2021-07-09] MEDS ORDERED: OXcarbazepine 150 MG TAB PO SCH (21:00)
[2021-07-10] MEDS: LEVOTHYROXINE 50MCG TABLET (0.05MG) PO SCH (06:00)
[2021-07-10 06:44] VITALS: BP 126/60
[2021-07-10] MEDS: VITAMIN D 1,000 INTERNATIONAL UNITS TABLET PO SCH (08:45)
[2021-07-10] MEDS: FUROSEMIDE 20 MG TAB PO SCH (08:48)
[2021-07-10] MEDS: OXcarbazepine 300 MG TAB PO SCH (08:48)
[2021-07-10] MEDS: buPROPion **XL** TABLET 150MG (WELLBUTRIN XL) PO SCH (08:49)
[2021-07-10] MEDS: busPIRone 10 MG TAB PO SCH ×2 (08:49→21:00)
[2021-07-10] MEDS ORDERED: buPROPion **XL** TABLET 150MG (WELLBUTRIN XL) PO SCH (09:00)
--- NOTE | 2021-07-10 15:04 | HPE ---
HISTORY AND PHYSICAL DATE OF ADMISSION: 07/08/2021 This is a hospitalist-generated inpatient mental health unit history and physical, admitted for psychiatric causes. She has a history of hypertension, hypothyroidism, chronic constipation, vitamin D deficiency, ovarian cysts, acanthosis nigricans, body mass index (BMI) greater than 60. Psychiatric disorders include depression, anxiety, bipolar disorder, posttraumatic stress disorder (PTSD), and borderline personality disorder with history of suicide attempts with pills. SURGICAL HISTORY: 1. Right salpingo-oophorectomy. 2. Appendectomy in 2010. FAMILY HISTORY: Father with history of hypertension, hyperlipidemia, diabetes, cirrhosis. Mother: No significant problems. SOCIAL HISTORY: Denies alcohol and tobacco. REVIEW OF SYSTEMS: Unremarkable. PHYSICAL EXAMINATION: She was not fully cooperative with the exam. VITAL SIGNS: Per flow sheet. HEENT: Unremarkable. LUNGS: Clear. HEART: Regular rate and rhythm. ABDOMEN: Refused by the patient. EXTREMITIES: No clubbing, cyanosis, or edema. NEUROLOGIC: Grossly unremarkable. Labs look unremarkable. TSH is in normal range. IMPRESSION: 1. Hypothyroidism. Continue current dose of levothyroxine. 2. Hypertension. Blood pressure is well controlled. 3. Vitamin D deficiency. Continue supplement. 4. Various psychiatric disorders. continue her care through psychiatry. If there are any medical conditions that require our ongoing involvement, please feel free to reconsult.
[2021-07-10] MEDS ORDERED: OXcarbazepine 150 MG TAB PO SCH (15:35)
--- NOTE | 2021-07-10 16:23 | MHIPN ---
[facility] PROGRESS NOTE DATE: 07/10/2021 SUBJECTIVE: "The medications are not helping me. I want change in medication. Latuda has helped me in the past." OBJECTIVE: She is a 21-year-old female, single, disabled. Was brought by the police. Reportedly she was holding onto the guardrail and reported that she wanted to jump into the river. She has a history of multiple suicide attempts in the past by cutting and overdosing. She is currently severely depressed. She has been compliant with her medication. Currently she reports she is depressed and does not have suicidal thoughts but feels hopeless and helpless. MENTAL STATUS EXAMINATION: She is obese, cooperative. Psychomotor activity is decreased. Her thought process is linear and goal directed. Mood is depressed. Affect is constricted. Thought content: There is some preoccupation. Denies any suicidal thoughts. She is oriented to time, place, and person. Her memory immediate, remote, recent is good. Insight and judgment are fair. VITAL SIGNS: Temperature 96.8, pulse 76, respiratory rate 18, blood pressure 126/60, pulse oximetry 100. MEDICATIONS: - prazosin 10 mg at night - oxcarbazepine, or Trileptal, 450 mg twice a day - buspirone 10 mg twice a day - bupropion 450 mg once daily LABORATORY DATA: CBC within normal limits. CMP within normal limits. Toxicology was negative. DIAGNOSES: 1. Bipolar disorder, most recent episode depressed. 2. Unspecified anxiety disorder. PLAN: Taper off Trileptal and place her on Latuda 40 mg once daily. Continue Wellbutrin 450 mg once daily and titrate the dose. ESTIMATED LENGTH OF STAY: 4-5 days. TIME SPENT: 25 minutes.
[2021-07-10] MEDS: LURASIDONE HCL 40 MG TAB (LATUDA) PO SCH (17:15)
[2021-07-10 17:18] VITALS: BP 138/62
[2021-07-10] MEDS: CETIRIZINE (ZyrTEC) 10 MG TAB PO SCH (21:00)
[2021-07-10] MEDS: PRAZOSIN 1 MG CAP PO SCH (21:00)
[2021-07-11 05:39] VITALS: BP 140/83
[2021-07-11] MEDS: LEVOTHYROXINE 50MCG TABLET (0.05MG) PO SCH (05:44)
[2021-07-11] MEDS: busPIRone 10 MG TAB PO SCH ×2 (09:58→20:44)
[2021-07-11] MEDS: VITAMIN D 1,000 INTERNATIONAL UNITS TABLET PO SCH (09:58)
[2021-07-11] MEDS: OXcarbazepine 150 MG TAB PO SCH (09:59)
[2021-07-11] MEDS: buPROPion **XL** TABLET 150MG (WELLBUTRIN XL) PO SCH (09:59)
[2021-07-11] MEDS: FUROSEMIDE 20 MG TAB PO SCH (10:00)
[2021-07-11] MEDS: LURASIDONE HCL 40 MG TAB (LATUDA) PO SCH (17:29)
[2021-07-11] MEDS: CETIRIZINE (ZyrTEC) 10 MG TAB PO SCH (20:44)
[2021-07-11] MEDS: PRAZOSIN 1 MG CAP PO SCH (20:45)
[2021-07-12] MEDS: LEVOTHYROXINE 50MCG TABLET (0.05MG) PO SCH (05:40)
[2021-07-12 06:49] VITALS: BP 128/69
[2021-07-12] MEDS: busPIRone 10 MG TAB PO SCH ×2 (08:26→21:37)
[2021-07-12] MEDS: VITAMIN D 1,000 INTERNATIONAL UNITS TABLET PO SCH (08:26)
[2021-07-12] MEDS: buPROPion **XL** TABLET 150MG (WELLBUTRIN XL) PO SCH (08:27)
[2021-07-12] MEDS: OXcarbazepine 150 MG TAB PO SCH (08:27)
[2021-07-12] MEDS: FUROSEMIDE 20 MG TAB PO SCH (08:27)
--- NOTE | 2021-07-12 12:30 | MHIPN ---
[facility] PROGRESS NOTE DATE: 07/11/2021 SUBJECTIVE: Patient reports she is doing fine; however, she looks a little depressed. Speaks in monosyllabic words. Denied any suicidal thoughts. OBJECTIVE: She is a 21-year-old female, single, disabled, who was brought by the police. Reportedly she was holding onto the guardrail to jump into the river. Was brought by the police. History of multiple suicide attempts. Past history of cutting and overdosing. Currently she is severely depressed. Has been compliant with her medication, though she denies suicidal thoughts. She feels hopeless. MENTAL STATUS EXAMINATION: Always cooperative. Psychomotor activity is decreased. Thought process monosyllabic. Mood is depressed. Affect is constricted. Thought content: Patient has some preoccupation. Denied suicidal thoughts. Her memory, immediate, remote, recent, is good. She is oriented to time, place, and person. VITAL SIGNS: Temperature 99.4, blood pressure 140/83, respiratory rate 20, pulse 85, pulse oximetry 98. LABORATORY DATA: CBC within normal limits. CMP within normal limits. Toxicology was negative. DIAGNOSES: 1. Bipolar disorder, most recent episode depressed. 2. Unspecified anxiety disorder. PLAN: Continue Trileptal 450 mg once daily. Continue Latuda 40 mg once daily, Wellbutrin 450 mg once daily, and try to place her on a different antidepressant in case patient continues to be depressed. ESTIMATED LENGTH OF STAY: 4-5 days. TIME SPENT: 25 minutes.
--- NOTE | 2021-07-12 15:39 | MHIPNPDOC ---
[facility] Progress Note Progress Note DATE OF SERVICE: 07/12/21 SUBJECTIVE: Patient reports she is doing fine; however, she looks a little depressed and guarded. Speaks logical and goal-directed, she thinks she is feeling better. "I want to be discharged". OBJECTIVE: She is a 21-year-old female, single, disabled, who was brought by the police. Reportedly she was holding onto the guardrail to jump into the river. Was brought by the police. History of multiple suicide attempts. Past history of cutting and overdosing. Currently she is severely depressed. Has been compliant with her medication, she denies suicidal thoughts she looks somewhat guarded and depressed, her personal hygiene is better and was interacting better. Denies any side effects from the medication. MENTAL STATUS EXAMINATION: Always cooperative. Psychomotor activity is Normal. Thought process goal-directed. Mood is depressed. Affect is constricted. Thought content: Patient has some preoccupation. Denied suicidal thoughts. Her memory, immediate, remote, recent, is good. She is oriented to time, place, and person. LABORATORY DATA: CBC within normal limits. CMP within normal limits. Toxicology was negative. DIAGNOSES: 1. Bipolar disorder, most recent episode depressed. 2. Unspecified anxiety disorder. PLAN: Continue Trileptal 450 mg once daily. Continue Latuda 40 mg once daily, Wellbutrin 450 mg once daily, and try to place her on a different antidepressant in case patient continues to be depressed. ESTIMATED LENGTH OF STAY: 4-5 days. TIME SPENT: 25 minutes. Vital Signs Vital Signs Date Time Temp Pulse Resp B/P (MAP) Pulse Ox O2 Delivery O2 Flow Rate FiO2 07/12/21 06:49 97.4 96 14 128/69 (88) 100 Room Air Current Medications Current Medications Medications (Trade) Dose Ordered Sig/Ashlyn Route PRN Reason Start Time Stop Time Status Last Admin Dose Admin Acetaminophen (Tylenol Tab) 650 mg Q6HP PRN PO HEADACHE or MILD DISCOMFORT 07/09/21 05:00 Al Hydrox/Mg Hydrox/Simethicone (Mylanta) 30 ml Q4HP PRN PO HEARTBURN/INDIGESTION 07/09/21 05:00 Albuterol Sulfate (Proventil, Ventolin Hfa) 2 puff QID PRN INH SHORTNESS OF BREATH 07/09/21 05:00 Bupropion HCl (Wellbutrin Xl) 150 mg DAILY PO 07/10/21 09:00 UNV Bupropion HCl (Wellbutrin Xl) 450 mg DAILY PO 07/09/21 09:00 07/12/21 08:27 Buspirone HCl (Buspar) 10 mg BID PO 07/09/21 09:00 07/12/21 08:26 Cetirizine HCl (ZyrTEC) 10 mg QHS PO 07/09/21 21:00 07/11/21 20:44 Cyclobenzaprine HCl (Flexeril) 10 mg QHS PRN PO MUSCLE SPASMS 07/09/21 10:45 Furosemide (Lasix) 20 mg DAILY PO 07/09/21 09:00 07/12/21 08:27 Home Med (Home Med List Complete!) ASDIRECTED XX 07/09/21 01:40 07/09/21 01:45 DC Levothyroxine Sodium (Synthroid) 50 mcg DAILY@0600 PO 07/09/21 06:00 07/12/21 05:40 Lurasidone HCl (Latuda) 40 mg DAILY@18 PO 07/10/21 18:00 07/11/21 17:29 Magnesium Hydroxide (Milk Of Magnesia) 30 ml DAILYPRN PRN PO CONSTIPATION 07/09/21 05:00 Oxcarbazepine (Trileptal) 150 mg BID PO 07/09/21 21:00 UNV Oxcarbazepine (Trileptal) 450 mg BID PO 07/09/21 09:00 07/10/21 15:35 DC 07/10/21 08:48 Oxcarbazepine (Trileptal) 450 mg DAILY PO 07/10/21 15:35 07/10/21 15:45 DC Oxcarbazepine (Trileptal) 450 mg DAILY PO 07/11/21 09:00 07/12/21 08:27 Prazosin HCl (Minipress) 10 mg QHS PO 07/09/21 21:00 07/11/21 20:45 Trazodone HCl (Desyrel) 50 mg QHSP PRN PO INSOMNIA 07/09/21 05:00 Vitamin D (Vitamin D) 1,000 units DAILY PO 07/09/21 09:00 07/12/21 08:26 Allergies Coded Allergies: No Known Allergies (Verified , 05/23/21) LAURA CISSE MD Jul 12, 2021 15:39
[2021-07-12 16:25] VITALS: BP 149/75
[2021-07-12] MEDS: LURASIDONE HCL 40 MG TAB (LATUDA) PO SCH (17:18)
[2021-07-12] MEDS: PRAZOSIN 1 MG CAP PO SCH (21:37)
[2021-07-12] MEDS: CETIRIZINE (ZyrTEC) 10 MG TAB PO SCH (21:37)
[2021-07-13] MEDS: LEVOTHYROXINE 50MCG TABLET (0.05MG) PO SCH (05:17)
[2021-07-13 06:28] VITALS: BP 130/81
[2021-07-13] MEDS: OXcarbazepine 150 MG TAB PO SCH (08:07)
[2021-07-13] MEDS: VITAMIN D 1,000 INTERNATIONAL UNITS TABLET PO SCH (08:07)
[2021-07-13] MEDS: busPIRone 10 MG TAB PO SCH ×2 (08:07→21:17)
[2021-07-13] MEDS: FUROSEMIDE 20 MG TAB PO SCH (08:09)
[2021-07-13] MEDS: buPROPion **XL** TABLET 150MG (WELLBUTRIN XL) PO SCH (08:09)
--- NOTE | 2021-07-13 11:16 | MHIPNPDOC ---
[facility] Progress Note Progress Note DATE OF SERVICE: 07/13/21 SUBJECTIVE:" I want to be discharged, I have no suicidal thoughts" OBJECTIVE: She is a 21-year-old female, single, disabled, who was brought by the police. Reportedly she was holding onto the guardrail to jump into the river. Was brought by the police. History of multiple suicide attempts. Past history of cutting and overdosing. Currently she is severely depressed. Has been compliant with her medication, though she denies suicidal thoughts she looks somewhat guarded And depressed, her personal hygiene is better and was somewhat angry. Denies any side effects from the medication. MENTAL STATUS EXAMINATION: Always cooperative. Psychomotor activity is Normal. Thought process goal-directed. Mood is depressed. Affect is constricted. Thought content: Patient has some preoccupation. Denied suicidal thoughts. Her memory, immediate, remote, recent, is good. She is oriented to time, place, and person. LABORATORY DATA: CBC within normal limits. CMP within normal limits. Toxicology was negative. DIAGNOSES: 1. Bipolar disorder, most recent episode depressed. 2. Unspecified anxiety disorder. PLAN: Continue Trileptal 450 mg once daily. Increase Latuda to 60 mg once daily Wellbutrin 450 mg once daily, and try to place her on a different antidepressant in case patient continues to be depressed. ESTIMATED LENGTH OF STAY: 4-5 days. TIME SPENT: 25 minutes. Vital Signs Vital Signs Date Time Temp Pulse Resp B/P (MAP) Pulse Ox O2 Delivery O2 Flow Rate FiO2 07/13/21 06:28 97.0 100 18 130/81 (97) 97 Room Air Current Medications Current Medications Medications (Trade) Dose Ordered Sig/Ashlyn Route PRN Reason Start Time Stop Time Status Last Admin Dose Admin Acetaminophen (Tylenol Tab) 650 mg Q6HP PRN PO HEADACHE or MILD DISCOMFORT 07/09/21 05:00 Al Hydrox/Mg Hydrox/Simethicone (Mylanta) 30 ml Q4HP PRN PO HEARTBURN/INDIGESTION 07/09/21 05:00 Albuterol Sulfate (Proventil, Ventolin Hfa) 2 puff QID PRN INH SHORTNESS OF BREATH 07/09/21 05:00 Bupropion HCl (Wellbutrin Xl) 150 mg DAILY PO 07/10/21 09:00 UNV Bupropion HCl (Wellbutrin Xl) 450 mg DAILY PO 07/09/21 09:00 07/13/21 08:09 Buspirone HCl (Buspar) 10 mg BID PO 07/09/21 09:00 07/13/21 08:07 Cetirizine HCl (ZyrTEC) 10 mg QHS PO 07/09/21 21:00 07/12/21 21:37 Cyclobenzaprine HCl (Flexeril) 10 mg QHS PRN PO MUSCLE SPASMS 07/09/21 10:45 Furosemide (Lasix) 20 mg DAILY PO 07/09/21 09:00 07/13/21 08:09 Home Med (Home Med List Complete!) ASDIRECTED XX 07/09/21 01:40 07/09/21 01:45 DC Levothyroxine Sodium (Synthroid) 50 mcg DAILY@0600 PO 07/09/21 06:00 07/13/21 05:17 Lurasidone HCl (Latuda) 40 mg DAILY@18 PO 07/10/21 18:00 07/12/21 17:18 Magnesium Hydroxide (Milk Of Magnesia) 30 ml DAILYPRN PRN PO CONSTIPATION 07/09/21 05:00 Oxcarbazepine (Trileptal) 150 mg BID PO 07/09/21 21:00 UNV Oxcarbazepine (Trileptal) 450 mg BID PO 07/09/21 09:00 07/10/21 15:35 DC 07/10/21 08:48 Oxcarbazepine (Trileptal) 450 mg DAILY PO 07/10/21 15:35 07/10/21 15:45 DC Oxcarbazepine (Trileptal) 450 mg DAILY PO 07/11/21 09:00 07/13/21 08:07 Prazosin HCl (Minipress) 10 mg QHS PO 07/09/21 21:00 07/12/21 21:37 Trazodone HCl (Desyrel) 50 mg QHSP PRN PO INSOMNIA 07/09/21 05:00 Vitamin D (Vitamin D) 1,000 units DAILY PO 07/09/21 09:00 07/13/21 08:07 Allergies Coded Allergies: No Known Allergies (Verified , 05/23/21) LAURA CISSE MD Jul 13, 2021 11:16
[2021-07-13] MEDS: LURASIDONE 20 MG TAB (LATUDA) PO SCH (17:14)
[2021-07-13 19:08] VITALS: BP 132/84
[2021-07-13] MEDS: CETIRIZINE (ZyrTEC) 10 MG TAB PO SCH (21:17)
[2021-07-13] MEDS: PRAZOSIN 1 MG CAP PO SCH (21:17)
[2021-07-14] MEDS: LEVOTHYROXINE 50MCG TABLET (0.05MG) PO SCH (05:04)
[2021-07-14 06:23] VITALS: BP 141/75
[2021-07-14] MEDS: VITAMIN D 1,000 INTERNATIONAL UNITS TABLET PO SCH (07:56)
[2021-07-14] MEDS: busPIRone 10 MG TAB PO SCH ×2 (07:56→21:38)
[2021-07-14] MEDS: buPROPion **XL** TABLET 150MG (WELLBUTRIN XL) PO SCH (07:56)
[2021-07-14] MEDS: FUROSEMIDE 20 MG TAB PO SCH (07:57)
[2021-07-14] MEDS: OXcarbazepine 150 MG TAB PO SCH (07:57)
[2021-07-14] MEDS: ACETAMINOPHEN TAB 650MG DOSE (2X325MG) PO PRN ×2 (11:36→17:22)
--- NOTE | 2021-07-14 11:58 | MHIPNPDOC ---
[facility] Progress Note Progress Note DATE OF SERVICE: 07/14/21 SUBJECTIVE:" I feel better, I slept well and I want to go home" OBJECTIVE: She is a 21-year-old female, single, disabled, who was brought by the police. Reportedly she was holding onto the guardrail to jump into the river. Was brought by the police. History of multiple suicide attempts. Past history of cutting and overdosing. Currently she is not depressed. Has been compliant with her medication, she denies suicidal thoughts she looks somewhat guarded, her personal hygiene is better Denies any side effects from the medication. Patient tolerating the medicine well. MENTAL STATUS EXAMINATION: Always cooperative. Psychomotor activity is Normal. Thought process goal-directed. Mood is depressed. Affect is constricted. Thought content: Patient has some preoccupation. Denied suicidal thoughts. Her memory, immediate, remote, recent, is good. She is oriented to time, place, and person. LABORATORY DATA: CBC within normal limits. CMP within normal limits. Toxicology was negative. DIAGNOSES: 1. Bipolar disorder, most recent episode depressed. 2. Unspecified anxiety disorder. PLAN: Continue Trileptal 450 mg once daily. Continue Latuda to 60 mg once daily Wellbutrin 450 mg once daily, and can be discharged tomorrow. ESTIMATED LENGTH OF STAY: 1-2 days. TIME SPENT: 25 minutes. Vital Signs Vital Signs Date Time Temp Pulse Resp B/P (MAP) Pulse Ox O2 Delivery O2 Flow Rate FiO2 07/14/21 06:23 97.2 91 18 141/75 (97) 95 Room Air Current Medications Current Medications Medications (Trade) Dose Ordered Sig/Ashlyn Route PRN Reason Start Time Stop Time Status Last Admin Dose Admin Acetaminophen (Tylenol Tab) 650 mg Q6HP PRN PO HEADACHE or MILD DISCOMFORT 07/09/21 05:00 07/14/21 11:36 Al Hydrox/Mg Hydrox/Simethicone (Mylanta) 30 ml Q4HP PRN PO HEARTBURN/INDIGESTION 07/09/21 05:00 Albuterol Sulfate (Proventil, Ventolin Hfa) 2 puff QID PRN INH SHORTNESS OF BREATH 07/09/21 05:00 Bupropion HCl (Wellbutrin Xl) 150 mg DAILY PO 07/10/21 09:00 UNV Bupropion HCl (Wellbutrin Xl) 450 mg DAILY PO 07/09/21 09:00 07/14/21 07:56 Buspirone HCl (Buspar) 10 mg BID PO 07/09/21 09:00 07/14/21 07:56 Cetirizine HCl (ZyrTEC) 10 mg QHS PO 07/09/21 21:00 07/13/21 21:17 Cyclobenzaprine HCl (Flexeril) 10 mg QHS PRN PO MUSCLE SPASMS 07/09/21 10:45 Furosemide (Lasix) 20 mg DAILY PO 07/09/21 09:00 07/14/21 07:57 Home Med (Home Med List Complete!) ASDIRECTED XX 07/09/21 01:40 07/09/21 01:45 DC Levothyroxine Sodium (Synthroid) 50 mcg DAILY@0600 PO 07/09/21 06:00 07/14/21 05:04 Lurasidone HCl (Latuda) 40 mg DAILY@18 PO 07/10/21 18:00 07/13/21 11:16 DC 07/12/21 17:18 Lurasidone HCl (Latuda) 60 mg DAILY@18 PO 07/13/21 18:00 07/13/21 17:14 Magnesium Hydroxide (Milk Of Magnesia) 30 ml DAILYPRN PRN PO CONSTIPATION 07/09/21 05:00 Oxcarbazepine (Trileptal) 150 mg BID PO 07/09/21 21:00 UNV Oxcarbazepine (Trileptal) 450 mg BID PO 07/09/21 09:00 07/10/21 15:35 DC 07/10/21 08:48 Oxcarbazepine (Trileptal) 450 mg DAILY PO 07/10/21 15:35 07/10/21 15:45 DC Oxcarbazepine (Trileptal) 450 mg DAILY PO 07/11/21 09:00 07/14/21 07:57 Prazosin HCl (Minipress) 10 mg QHS PO 07/09/21 21:00 07/13/21 21:17 Trazodone HCl (Desyrel) 50 mg QHSP PRN PO INSOMNIA 07/09/21 05:00 Vitamin D (Vitamin D) 1,000 units DAILY PO 07/09/21 09:00 07/14/21 07:56 Allergies Coded Allergies: No Known Allergies (Verified , 05/23/21) LAURA CISSE MD Jul 14, 2021 11:58
[2021-07-14 16:34] VITALS: BP 129/79
[2021-07-14] MEDS: LURASIDONE 20 MG TAB (LATUDA) PO SCH (18:17)
[2021-07-14] MEDS: CETIRIZINE (ZyrTEC) 10 MG TAB PO SCH (21:38)
[2021-07-14 21:39] VITALS: BP 143/95
[2021-07-14] MEDS: PRAZOSIN 1 MG CAP PO SCH (21:39)
[2021-07-15] MEDS: LEVOTHYROXINE 50MCG TABLET (0.05MG) PO SCH (05:02)
[2021-07-15 05:51] VITALS: BP 138/76
[2021-07-15] MEDS: buPROPion **XL** TABLET 150MG (WELLBUTRIN XL) PO SCH (08:13)
[2021-07-15] MEDS: OXcarbazepine 150 MG TAB PO SCH (08:13)
[2021-07-15] MEDS: FUROSEMIDE 20 MG TAB PO SCH (08:13)
[2021-07-15] MEDS: VITAMIN D 1,000 INTERNATIONAL UNITS TABLET PO SCH (08:13)
[2021-07-15] MEDS: busPIRone 10 MG TAB PO SCH (08:13)
[2021-07-15] MEDS ORDERED: LATU20TA PO (09:18)
--- NOTE | 2021-07-15 10:55 | MHDS ---
[facility] DISCHARGE SUMMARY DATE OF ADMISSION: 07/08/2021 DATE OF DISCHARGE: 07/15/2021 DIAGNOSES: 1. Bipolar disorder, current episode depressed. 2. Posttraumatic stress disorder (PTSD). 3. Alcohol use disorder. IDENTIFYING DATA: She is a 21-year-old female who was admitted because of suicidal thoughts and possible attempt. For history of present illness (HPI), past psychiatric history, personal history, medical history, substance abuse history, please refer to the initial evaluation. COURSE IN THE HOSPITAL: Patient was brought in by the police because she wanted to jump into the [place]. Patient has a history of multiple suicide attempts by cutting and overdose. Initially, patient was depressed, very guarded. She was placed on her medications, bupropion, buspirone, Trileptal and prazosin. However, patient continued to be depressed. She reported that Latuda had helped her best. Latuda was added to her medication list. She made gradual recovery. She started attending groups and activities. Her suicidal thoughts resolved. She interacted well with the staff and peers. Denied any suicidal thoughts at the time of discharge. MENTAL STATUS EXAMINATION: She is cooperative. Made good eye contact. Psychomotor activity is normal. Speech: Rate, rhythm and volume are good. Mood is euthymic. Affect is full range. Thought process: Linear and goal-directed. Thought process: Denied any suicidal or homicidal ideas. Denied any delusions. Perception: Denied any hallucinations, auditory or visual. Attention and concentration are good. Oriented to time, place and person. Insight and judgment is good. VITAL SIGNS: Temperature 97.5, pulse 94, respiratory rate 16, blood pressure 138/76, pulse oximetry 96. PLAN: Discharge to home. Follow up with [facility]. DISCHARGE MEDICATIONS: - lurasidone 60 mg once daily with food - Trileptal 450 mg once daily - prazosin 10 mg at night - cetrizine 10 mg at night - bupropion 450 mg daily - levothyroxine 50 mcg once daily
== END 2021-07-15 11:10 | disposition home or self-care (01) | DRG 753 ==
LOC: M ED 23:56 → M PSY 23:57 → M ED INP 23:57 → UNDOADMIN 23:57 → M PSY 07-09 06:57
PROVIDERS: ADMIT Psychiatry & Neurology Psychiatry; ATTEND Psychiatry & Neurology Psychiatry
DX: F31.30 Bipolar disorder, current episode depressed, mild or moderate severity, unspecified (principal); I10 Essential (primary) hypertension; R45.851 Suicidal ideations; F43.10 Post-traumatic stress disorder, unspecified; F10.10 Alcohol abuse, uncomplicated; Z79.899 Other long term (current) drug therapy; E03.9 Hypothyroidism, unspecified; E55.9 Vitamin D deficiency, unspecified

== ENCOUNTER 2021-09-13 00:29 | Emergency (ER) | payer OTHER ==
[~2021-09-13] VITALS: Ht 160 cm; Wt 165.9 kg
[~2021-09-13 00:29] MED LIST changes: +CETI-24 PO; +LATU20TA PO; -LATU40TA PO; +LATU40TA2 PO; -LATU80TA PO; +LATU80TA2 PO
[2021-09-13] MEDS ORDERED: ROLLMIS8 XX (10:22)
[2021-09-13 10:50] VITALS: BP 145/85
[2021-11-14] MEDS ORDERED: MONT10TA97 PO (07:07)
== END 2021-09-13 11:22 | disposition home or self-care (01) ==
LOC: M ED 00:29
DX: S82.832A Other fracture of upper and lower end of left fibula, initial encounter for closed fracture (principal); W18.40XA Slipping, tripping and stumbling without falling, unspecified, initial encounter; Y92.9 Unspecified place or not applicable; Y93.9 Activity, unspecified; Y99.9 Unspecified external cause status

== ENCOUNTER → 2021-09-24 | Outpatient (CLI) | payer OTHER ==
[~2021-09-24] MED LIST changes: +LATU40TA PO; -LATU40TA2 PO; +LATU80TA PO; -LATU80TA2 PO; +ROLLMIS8 XX
--- NOTE | 2021-09-24 11:35 | REP ---
INDICATION: LT ANKLE SPRAIN. COMPARISON: 09/13/2021 TECHNIQUE: Three views FINDINGS: The tiny fracture seen arising from the distal fibular tip is again noted. There is persistent lateral soft tissue swelling. No acute fractures have developed. IMPRESSION: No significant change <Electronically signed by Surjit Coon > 09/24/21 [id number]
== END ==
LOC: M SOG 10:31
PROVIDERS: ATTEND Orthopaedic Surgery
DX: S93.492A Sprain of other ligament of left ankle, initial encounter (principal); X58.XXXA Exposure to other specified factors, initial encounter; Y92.9 Unspecified place or not applicable; Y93.9 Activity, unspecified; Y99.9 Unspecified external cause status

== ENCOUNTER 2021-10-23 10:36 | Inpatient (IN) | payer MEDICAID, OTHER ==
[~2021-10-23] VITALS: Ht 160 cm; Wt 165.9 kg
[~2021-10-23 10:36] MED LIST changes: -LATU40TA PO; +LATU40TA2 PO; -LATU80TA PO; +LATU80TA2 PO
[2021-10-23 11:38] LABS: HEMATOCRIT 41.6 % (36.0-47.0); HEMOGLOBIN 12.9 g/dl (12.0-15.5); MEAN CORPUSCULAR HEMOGLOBIN 25.3 pg (27.0-33.0); MEAN CORPUSCULAR VOLUME 81.7 fl (80.0-96.0); PLATELET COUNT, AUTOMATED 365 10^3/uL (150-450); RED BLOOD COUNT 5.09 10^6/uL (4.00-5.40)
[2021-10-23 11:50] LABS: HCG, SERUM QUALITATIVE NEGATIVE (NEGATIVE)
[2021-10-23 11:56] LABS: ACETAMINOPHEN LEVEL < 2.0 UG/ML (10.0-30.0); ALBUMIN 3.6 GM/DL (3.2-5.2); ALT/SGPT 35 U/L (12-78); BILIRUBIN,DIRECT 0.1 MG/DL (0.0-0.2); BILIRUBIN,TOTAL 0.4 MG/DL (0.2-1.0); BLOOD UREA NITROGEN 13 MG/DL (7-18); CALCIUM LEVEL 9.6 MG/DL (8.5-10.1); CARBON DIOXIDE LEVEL 26 MEQ/L (21-32); CHLORIDE LEVEL 107 MEQ/L (98-107); CREATININE FOR GFR 0.71 MG/DL (0.55-1.30); ETHYL ALCOHOL (ETHANOL) 0.004 % (0.000-0.010); GLOMERULAR FILTRATION RATE > 60.0 (>60); GLUCOSE, FASTING 103 MG/DL (70-100); POTASSIUM SERUM 4.3 MEQ/L (3.5-5.1); SALICYLATE LEVEL < 1.7 MG/DL (5.0-30.0); SODIUM LEVEL 139 MEQ/L (136-145); THYROID STIMULATING HORMONE 0.861 uIU/ML (0.358-3.740); TOTAL PROTEIN 7.7 GM/DL (6.4-8.2)
[2021-10-23 14:47] LABS: RSV AMPLIFICATION NEGATIVE (NEGATIVE)
[2021-10-23 15:49] LABS: AMPHETAMINES LEVEL URINE NEGATIVE (NEGATIVE); BARBITURATES URINE NEGATIVE (NEGATIVE); BENZODIAZEPINES URINE NEGATIVE (NEGATIVE); CANNABINOIDS URINE NEGATIVE (NEGATIVE); COCAINE METABOLITE URINE NEGATIVE (NEGATIVE); METHADONE URINE NEGATIVE (NEGATIVE); OPIATES URINE NEGATIVE (NEGATIVE); PHENCYCLIDINE URINE NEGATIVE (NEGATIVE)
[2021-10-24] MEDS ORDERED: HOME MED LIST COMPLETE! XX SCH (00:10)
[2021-10-24] MEDS ORDERED: ALBU8.5H INH (00:10)
[2021-10-24] MEDS ORDERED: QVAR40AE12 INH (00:10)
[2021-10-24] MEDS ORDERED: ACETAMINOPHEN TAB 650MG DOSE (2X325MG) PO PRN (14:55)
[2021-10-24] MEDS ORDERED: NICOTINE 21MG/24HR 1 EA TRANSDERMAL TD PRN (14:55)
[2021-10-24] MEDS ORDERED: MOM 30ML SUSPENSION UDC PO PRN (14:55)
[2021-10-24] MEDS ORDERED: MAALOX 30 ML SUSP *UDC PO PRN (14:55)
[2021-10-24] MEDS: LURASIDONE HCL 40MG TAB (LATUDA) PO SCH (16:22)
[2021-10-24] MEDS: buPROPion **XL** TABLET 150MG (WELLBUTRIN XL) PO SCH (21:00)
[2021-10-24] MEDS: OXcarbazepine 150 MG TAB PO SCH (21:00)
[2021-10-25 06:27] VITALS: BP 146/90
[2021-10-25] MEDS: LURASIDONE HCL 40MG TAB (LATUDA) PO SCH (08:00)
[2021-10-25] MEDS: OXcarbazepine 150 MG TAB PO SCH ×2 (08:43→21:00)
[2021-10-25] MEDS: buPROPion **XL** TABLET 150MG (WELLBUTRIN XL) PO SCH (08:43)
[2021-10-25] MEDS: ESCITALOPRAM OXALATE 10 MG TAB (LEXAPRO) PO SCH (11:55)
[2021-10-25 19:14] VITALS: BP 130/66
[2021-10-25] MEDS: traZODone 50 MG TAB PO PRN (22:11)
[2021-10-26 06:21] VITALS: BP 127/58
[2021-10-26] MEDS: OXcarbazepine 150 MG TAB PO SCH ×2 (09:00→21:20)
[2021-10-26] MEDS: ESCITALOPRAM OXALATE 10 MG TAB (LEXAPRO) PO SCH (09:00)
[2021-10-26] MEDS: traZODone 50 MG TAB PO PRN (21:20)
[2021-10-26] MEDS: OLANZapine ORAL DISINTEGRATING TAB 5MG PO PRN (21:20)
[2021-10-27 07:00] VITALS: BP 125/60
[2021-10-27] MEDS ORDERED: LEXA1TAB PO (09:55)
[2021-10-27] MEDS ORDERED: OXCA150T21 PO (09:55)
[2021-10-27] MEDS: OXcarbazepine 150 MG TAB PO SCH ×2 (10:49→20:35)
[2021-10-27] MEDS: ESCITALOPRAM OXALATE 10 MG TAB (LEXAPRO) PO SCH (10:49)
[2021-10-27] MEDS: OLANZapine ORAL DISINTEGRATING TAB 5MG PO PRN (11:05)
[2021-10-27 18:00] VITALS: BP 134/67
[2021-10-28 06:08] VITALS: BP 114/63
[2021-10-28] MEDS: ESCITALOPRAM OXALATE 10 MG TAB (LEXAPRO) PO SCH (09:08)
[2021-10-28] MEDS: OXcarbazepine 150 MG TAB PO SCH (09:08)
[2021-11-14] MEDS ORDERED: MONT10TA97 PO (07:07)
== END 2021-10-28 12:05 | disposition home or self-care (01) | DRG 755 ==
LOC: M ED 10:36 → M ED INP 10-24 14:55 → M PSY 10-24 16:55
PROVIDERS: ADMIT Psychiatry & Neurology Psychiatry; ATTEND Psychiatry & Neurology Psychiatry
DX: F43.10 Post-traumatic stress disorder, unspecified (principal); F31.9 Bipolar disorder, unspecified; F60.89 Other specific personality disorders; Z91.51 Personal history of suicidal behavior; Z91.14 Patient's other noncompliance with medication regimen; I10 Essential (primary) hypertension; J45.909 Unspecified asthma, uncomplicated; Z79.899 Other long term (current) drug therapy; Z20.822 Contact with and (suspected) exposure to COVID-19

== ENCOUNTER 2021-10-29 14:59 | Emergency (ER) | payer MEDICAID, OTHER ==
[~2021-10-29] VITALS: Ht 160 cm; Wt 165.0 kg
[~2021-10-29 14:59] MED LIST changes: +ALBU8.5H INH; +LATU40TA PO; -LATU40TA2 PO; +LATU80TA PO; -LATU80TA2 PO; +LEXA1TAB PO; +QVAR40AE12 INH
[2021-10-29 18:07] LABS: AMPHETAMINES LEVEL URINE NEGATIVE (NEGATIVE); BARBITURATES URINE NEGATIVE (NEGATIVE); BENZODIAZEPINES URINE NEGATIVE (NEGATIVE); CANNABINOIDS URINE NEGATIVE (NEGATIVE); COCAINE METABOLITE URINE NEGATIVE (NEGATIVE); METHADONE URINE NEGATIVE (NEGATIVE); OPIATES URINE NEGATIVE (NEGATIVE); PHENCYCLIDINE URINE NEGATIVE (NEGATIVE)
[2021-10-29 18:33] LABS: HEMATOCRIT 41.8 % (36.0-47.0); HEMOGLOBIN 12.7 g/dl (12.0-15.5); MEAN CORPUSCULAR HEMOGLOBIN 25.5 pg (27.0-33.0); MEAN CORPUSCULAR HGB CONC 30.4 g/dl (32.0-36.5); MEAN CORPUSCULAR VOLUME 83.9 fl (80.0-96.0); PLATELET COUNT, AUTOMATED 361 10^3/uL (150-450); RED BLOOD COUNT 4.98 10^6/uL (4.00-5.40); WHITE BLOOD COUNT 11.6 10^3/uL (4.0-10.0)
[2021-10-29 18:58] LABS: HCG, SERUM QUALITATIVE NEGATIVE (NEGATIVE)
[2021-10-29 19:05] LABS: RSV AMPLIFICATION NEGATIVE (NEGATIVE)
[2021-10-29 19:07] LABS: ACETAMINOPHEN LEVEL < 2.0 UG/ML (10.0-30.0); ALBUMIN 3.5 GM/DL (3.2-5.2); ALT/SGPT 53 U/L (12-78); BILIRUBIN,DIRECT < 0.1 MG/DL (0.0-0.2); BILIRUBIN,TOTAL 0.3 MG/DL (0.2-1.0); BLOOD UREA NITROGEN 15 MG/DL (7-18); CALCIUM LEVEL 9.5 MG/DL (8.5-10.1); CARBON DIOXIDE LEVEL 31 MEQ/L (21-32); CHLORIDE LEVEL 106 MEQ/L (98-107); CREATININE FOR GFR 0.67 MG/DL (0.55-1.30); ETHYL ALCOHOL (ETHANOL) < 0.003 % (0.000-0.010); GLOMERULAR FILTRATION RATE > 60.0 (>60); GLUCOSE, FASTING 95 MG/DL (70-100); POTASSIUM SERUM 4.8 MEQ/L (3.5-5.1); SALICYLATE LEVEL < 1.7 MG/DL (5.0-30.0); SODIUM LEVEL 142 MEQ/L (136-145); THYROID STIMULATING HORMONE 0.667 uIU/ML (0.358-3.740); TOTAL PROTEIN 7.4 GM/DL (6.4-8.2)
[2021-10-29] MEDS ORDERED: OXcarbazepine 150 MG TAB PO SCH (21:00)
[2021-10-29] MEDS ORDERED: OLANZapine INTRAMUSCULAR 10MG VIAL IM ONE (21:30)
--- NOTE | 2021-10-29 21:43 | ECGEPIP ---
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
[2021-10-30 08:39] VITALS: BP 114/70
[2021-10-30] MEDS ORDERED: ESCITALOPRAM OXALATE 10 MG TAB (LEXAPRO) PO SCH (09:00)
== END 2021-10-30 08:43 ==
LOC: M ED 14:59
DX: F32.A Depression, unspecified (principal); F32.9 Major depressive disorder, single episode, unspecified; R45.851 Suicidal ideations; R41.82 Altered mental status, unspecified; I49.8 Other specified cardiac arrhythmias; Z90.89 Acquired absence of other organs

== ENCOUNTER 2021-11-07 22:25 | Inpatient (IN) | payer MEDICAID, OTHER ==
[~2021-11-07] VITALS: Ht 160 cm; Wt 157.8 kg
[2021-11-07 22:56] LABS: HEMATOCRIT 39.7 % (36.0-47.0); HEMOGLOBIN 12.2 g/dl (12.0-15.5); MEAN CORPUSCULAR HEMOGLOBIN 25.6 pg (27.0-33.0); MEAN CORPUSCULAR HGB CONC 30.7 g/dl (32.0-36.5); MEAN CORPUSCULAR VOLUME 83.2 fl (80.0-96.0); PLATELET COUNT, AUTOMATED 294 10^3/uL (150-450); RED BLOOD COUNT 4.77 10^6/uL (4.00-5.40); WHITE BLOOD COUNT 10.4 10^3/uL (4.0-10.0)
[2021-11-07 23:37] LABS: ACETAMINOPHEN LEVEL < 2.0 UG/ML (10.0-30.0); ALBUMIN 3.4 GM/DL (3.2-5.2); ALT/SGPT 38 U/L (12-78); BILIRUBIN,DIRECT < 0.1 MG/DL (0.0-0.2); BILIRUBIN,TOTAL 0.2 MG/DL (0.2-1.0); BLOOD UREA NITROGEN 17 MG/DL (7-18); CARBON DIOXIDE LEVEL 30 MEQ/L (21-32); CHLORIDE LEVEL 109 MEQ/L (98-107); CREATININE FOR GFR 0.61 MG/DL (0.55-1.30); ETHYL ALCOHOL (ETHANOL) < 0.003 % (0.000-0.010); GLOMERULAR FILTRATION RATE > 60.0 (>60); GLUCOSE, FASTING 120 MG/DL (70-100); POTASSIUM SERUM 4.1 MEQ/L (3.5-5.1); SALICYLATE LEVEL < 1.7 MG/DL (5.0-30.0); SODIUM LEVEL 143 MEQ/L (136-145); TOTAL PROTEIN 6.9 GM/DL (6.4-8.2)
[2021-11-07 23:41] LABS: AMPHETAMINES LEVEL URINE NEGATIVE (NEGATIVE); BARBITURATES URINE NEGATIVE (NEGATIVE); BENZODIAZEPINES URINE NEGATIVE (NEGATIVE); CANNABINOIDS URINE NEGATIVE (NEGATIVE); COCAINE METABOLITE URINE NEGATIVE (NEGATIVE); METHADONE URINE NEGATIVE (NEGATIVE); OPIATES URINE NEGATIVE (NEGATIVE); PHENCYCLIDINE URINE NEGATIVE (NEGATIVE)
[2021-11-08 00:02] LABS: RSV AMPLIFICATION NEGATIVE (NEGATIVE)
[2021-11-08] MEDS ORDERED: MAALOX 30 ML SUSP *UDC PO PRN (00:40)
[2021-11-08] MEDS ORDERED: ACETAMINOPHEN TAB 650MG DOSE (2X325MG) PO PRN (00:40)
[2021-11-08] MEDS ORDERED: MOM 30ML SUSPENSION UDC PO PRN (00:40)
[2021-11-08] MEDS ORDERED: OXCA150T21 PO (00:42)
[2021-11-08] MEDS ORDERED: CLON-412 PO (00:42)
[2021-11-08] MEDS ORDERED: LEXA1TAB PO (00:42)
[2021-11-08] MEDS ORDERED: HYDR50TA70 PO (00:42)
[2021-11-08] MEDS ORDERED: prazosin (00:45)
[2021-11-08] MEDS ORDERED: HOME MED LIST COMPLETE! XX SCH (00:50)
[2021-11-08 02:29] VITALS: BP 123/68
[2021-11-08] MEDS: traZODone 50 MG TAB PO PRN (03:16)
[2021-11-08 07:10] VITALS: BP 147/84
[2021-11-08] MEDS ORDERED: ALBUTEROL 90 MCG/ACT 8GM HFA INHALER INH PRN (09:35)
--- NOTE | 2021-11-08 09:36 | HPEPDOC ---
[facility] Medical History & Physical Date of Admission Nov 08, 2021 Date of Service: Nov 08, 2021 History and Physical CHIEF COMPLAINT: Suicidal ideation, hospitalist consulted for medical HISTORY OF PRESENT ILLNESS: 21-year-old female with a past medical medical history of asthma ,hypertension, suicidal ideation, depression and anxiety. Per ER report patient was recently discharged on November 04 from [facility] in [place] for psychiatric admission. She was last admitted on Oct 25, 2021 to [facility] behavioral health for suicidal ideation after she was found standing on a bridge at which time a standard called 911. Patient states that she feels suicidal and had a plan but did not proceed with it. She was found to have cuts on her left forearm which are bandaged in the ER triage. At this time patient denies any chest pain shortness of breath nausea vomiting diarrhea subjective fevers or chills. PAST MEDICAL HISTORY: Asthma Hypertension Depression Anxiety Suicidal ideation PAST SURGICAL HISTORY: Reports no prior surgical history SOCIAL HISTORY: Patient denies smoking Patient denies etoh use FAMILY HISTORY: Reports father having hypertension diabetes and lung Patient denies illicit drug use ALLERGIES: Please see below. REVIEW OF SYSTEMS: 10 point ROS conducted, relevant findings were noted in the HPI HOME MEDICATIONS: Please see below. PHYSICAL EXAMINATION: VITAL SIGNS: please see below General: NAD, comfortable HEENT: PERRLA, EOMI, sclerae clear Neck: supple, normal ROM, no JVD Respiratory: lungs CTAB, no wheeze, no rales, no crackles CVS: RRR, normal S1, S2, no murmurs Abdo: soft, no masses, no hepatosplenomegaly, BS+, no rebound tenderness Extremities: no edema, pulses 2+ MSK: no joint deformities, normal ROM, left forearm bandaged Neuro: no focal neuro deficits, moving all 4 extremities, CN2-12 intact. Strength 5/5 in all 4 extremities. No nystagmus. Psych: calm, cooperative, AAO x 3 LABORATORY DATA: See below. MICROBIOLOGY: Please see below. ASSESSMENT: 21-year-old female with history of anxiety depression hypertension asthma admitted for suicidal risk . PLAN: Suicidal ideation/depression/anxiety: per psychiatry HTN: BP noted to be elevated at 175/85 on admission, now improved to 147/84. Possible anxiety driven? takes clonidine 0.1 mg BID. Add HCTZ 12.5 mg daily. Low salt diet. PCP follow up. Asthma: stable. resume albuterol. start montelukast. Obesity: BMI 62.5. Complicates care. PCP f/u. May be candidate for bariatric surgery. Thank you for involving me in the care of this patient. Please reconsult as needed. Vital Signs Vital Signs Date Time Temp Pulse Resp B/P (MAP) Pulse Ox O2 Delivery O2 Flow Rate FiO2 11/08/21 07:10 97.9 88 16 147/84 (105) 98 Room Air Laboratory Data Labs 24H Laboratory Tests 2 11/07/21 22:44: Nucleated Red Blood Cells % (auto) 0.0, Anion Gap 4L, Glomerular Filtration Rate > 60.0, Calcium Level 9.0, Total Bilirubin 0.2, Direct Bilirubin < 0.1, Aspartate Amino Transf (AST/SGOT) 18, Alanine Aminotransferase (ALT/SGPT) 38, Alkaline Phosphatase 93, Total Protein 6.9, Albumin 3.4, Albumin/Globulin Ratio 1.0L, Thyroid Stimulating Hormone (TSH) 1.990, Salicylates Level < 1.7L, Acetaminophen Level < 2.0L, Ethyl Alcohol Level < 0.003, Coronavirus (COVID- 19)(PCR) NEGATIVE, Influenza Type A (RT-PCR) NEGATIVE, Influenza Type B (RT-PCR) NEGATIVE, Respiratory Syncytial Virus (PCR) NEGATIVE 11/07/21 22:55: Urine Opiates Screen NEGATIVE, Urine Methadone Screen NEGATIVE, Urine Barbiturates Screen NEGATIVE, Urine Phencyclidine Screen NEGATIVE, Urine Amphetamines Screen NEGATIVE, Urine Benzodiazepines Screen NEGATIVE, Urine Cocaine Metabolite Screen NEGATIVE, Urine Cannabinoids Screen NEGATIVE CBC/BMP Laboratory Tests 11/07/21 22:44 Home Medications Scheduled Clonidine HCl (Clonidine HCl) 0.1 Mg Tablet, 0.1 MG PO BID Escitalopram Oxalate (Lexapro) 10 Mg Tablet, 20 MG PO DAILY for Depression Hydrochlorothiazide (Hydrochlorothiazide) 12.5 Mg Capsule, 12.5 MG PO DAILY for Blood Pressure Montelukast Sodium (Montelukast Sodium) 10 Mg Tablet, 10 MG PO DAILY for Respiratory Oxcarbazepine (Oxcarbazepine) 150 Mg Tablet, 150 MG PO BID Prazosin HCl (Minipress) 5 Mg Capsule, 5 MG PO QHS for Nighmares Scheduled PRN Albuterol Sulfate (Ventolin Hfa) 18 Gm Hfa.aer.ad, 2 PUFF INH Q4HP PRN for SHORTNESS OF BREATH Bacitracin (Bacitracin) 28.4 Gm Oint...g., 1 DOSE TOP BIDP PRN for REDNESS/IRRIT ATION Hydroxyzine HCl (Hydroxyzine HCl) 50 Mg Tablet, 50 MG PO Q6H PRN for ANXIETY Trazodone HCl (Trazodone HCl) 50 Mg Tablet, 50 MG PO QHSP PRN for INSOMNIA Allergies Coded Allergies: No Known Allergies (Verified , 05/23/21) A-FIB/CHADSVASC A-FIB History Current/History of A-Fib/PAF?: No TAMMY HINES MD Nov 08, 2021 09:36
[2021-11-08] MEDS: OXcarbazepine 150 MG TAB PO SCH ×2 (10:22→20:59)
[2021-11-08] MEDS: ESCITALOPRAM OXALATE 10 MG TAB (LEXAPRO) PO SCH (10:22)
[2021-11-08] MEDS: MONTELUKAST 10 MG TAB PO SCH (10:23)
[2021-11-08] MEDS: cloNIDine 0.1MG TABLET PO SCH ×2 (10:23→21:00)
[2021-11-08] MEDS: hydroCHLOROthiazide 12.5 MG CAPSULE PO SCH (16:43)
[2021-11-08] MEDS: OLANZapine ORAL DISINTEGRATING TAB 5MG PO PRN (16:43)
[2021-11-08 18:28] VITALS: BP 114/55
[2021-11-09 06:35] VITALS: BP 121/58
[2021-11-09] MEDS: MONTELUKAST 10 MG TAB PO SCH (08:50)
[2021-11-09] MEDS: hydroCHLOROthiazide 12.5 MG CAPSULE PO SCH ×2 (08:50→08:52)
[2021-11-09] MEDS: cloNIDine 0.1MG TABLET PO SCH ×2 (08:52→22:01)
[2021-11-09] MEDS: OXcarbazepine 150 MG TAB PO SCH ×2 (08:52→22:02)
[2021-11-09] MEDS: ESCITALOPRAM OXALATE 10 MG TAB (LEXAPRO) PO SCH (08:52)
[2021-11-09 15:44] VITALS: BP 148/86
[2021-11-09] MEDS: hydrOXYzine 50 MG TAB PO PRN (23:03)
[2021-11-10] VITALS (12 sets, daily range): BP systolic 123–150; BP diastolic 62–89
[2021-11-10] MEDS: MONTELUKAST 10 MG TAB PO SCH (08:06)
[2021-11-10] MEDS: OXcarbazepine 150 MG TAB PO SCH ×2 (08:06→21:00)
[2021-11-10] MEDS: cloNIDine 0.1MG TABLET PO SCH ×2 (08:06→21:00)
[2021-11-10] MEDS: hydroCHLOROthiazide 12.5 MG CAPSULE PO SCH (08:06)
[2021-11-10] MEDS: ESCITALOPRAM OXALATE 10 MG TAB (LEXAPRO) PO SCH (08:07)
[2021-11-10] MEDS: OLANZapine ORAL DISINTEGRATING TAB 5MG PO PRN (08:07)
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
[2021-11-10] MEDS: PRAZOSIN 1 MG CAP PO SCH (20:54)
[2021-11-10] MEDS ORDERED: diphenhydrAMINE 50MG CAP PO STA (21:08)
[2021-11-10] MEDS ORDERED: LORazepam 2 MG TAB PO STA (21:08)
[2021-11-10] MEDS ORDERED: haloperidoL 5 MG TAB PO STA (21:08)
--- NOTE | 2021-11-10 21:29 | MHIR ---
General Date: Nov 10, 2021 Time Initiated: 21:20 Restraint Documentation Order/Evaluation FACE TO FACE: [Yes]. PHYSICIAN ASSESSMENT: [Per staff, patient was found with sharp edge of wrinkled plastic cup, has hx of self harm with such objects, and subsequently refused to give up object to staff. Patient quickly became agitated, and tried to evade staff by running down the adame. Patient did not make it far before laying on the floor. Staff were able to able to get the sharp plastic object from patient and reorient her to quiet room. Patient initially took oral medication willingly, however quickly became agitated again and tried to push through staff and sprint out of quiet room, physically and verbally aggressive. At this time, patient was placed in 4 point restraints]. REASON FOR RESTRAINT: Patient poses imminent danger of harming self or others: [Patient with hx of self harm, was displaying such behaviors, eventually physically and verbally aggressive toward staff]. DE-ESCALATION INTERVENTIONS ATTEMPTED BEFORE USE OF RESTRAINTS: [See above] [MECHANICAL AND/OR CHEMICAL] RESTRAINTS USED: [Both]. LENGTH OF TIME ORDERED IN RESTRAINTS: [240] minutes. WHEN TO DISCONTINUE RESTRAINTS: [When the patient is no longer a threat to themselves or others]. Post evaluation of restraint due in 24 hours. NORRIS BOOTH Nov 10, 2021 21:29
[2021-11-11] VITALS (7 sets, daily range): BP systolic 121–157; BP diastolic 61–90
[2021-11-11] MEDS: OXcarbazepine 150 MG TAB PO SCH ×2 (09:29→20:49)
[2021-11-11] MEDS: ESCITALOPRAM OXALATE 10 MG TAB (LEXAPRO) PO SCH (09:29)
[2021-11-11] MEDS: MONTELUKAST 10 MG TAB PO SCH (09:30)
[2021-11-11] MEDS: hydroCHLOROthiazide 12.5 MG CAPSULE PO SCH (09:30)
[2021-11-11] MEDS: cloNIDine 0.1MG TABLET PO SCH ×2 (09:35→20:49)
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
--- NOTE | 2021-11-11 13:03 | MHPR ---
General Date: Nov 11, 2021 Time: 11:35 Post-Restraint Evaluation THE OUTCOME OF THE RESTRAINT: Positive, patient is no longer self-harming herself EFFECTIVENESS OF THE RESTRAINT: Mechanical and/or chemical: Positive ANY EVIDENCE THAT THE PATIENT WAS AFFECTED EMOTIONALLY: Patient denies that she was affected emotionally ANY NEED FOR COUNSELING/ASSISTANCE: Patient was given 1:1 discussion pre and post restraints by staff. CHANGES IN TREATMENT PLAN: None, asked patient to adhere to safety while hospitalized RECOMMENDATIONS FOR FUTURE INCIDENTS: These were attempted prior to more restrictive options Validate Feelings Mediation Redirection Contract for Safety Staff Support Behavioral Techniques Medication For Agitation Calming Interventions CASSIUS GUERRA NP Nov 11, 2021 13:03
--- NOTE | 2021-11-11 15:29 | MHIPN ---
[facility] PROGRESS NOTE DATE: 11/09/2021 VITAL SIGNS: Blood pressure 121/59, pulse 60, temperature 97. CHIEF COMPLAINT: Says feels okay. SUBJECTIVE: She is seen via video in the presence of staff. She is in the inpatient psychiatry unit. I am at home. She says is doing okay. Says slept okay. On further inquiry suggests that it is not different from her usual pattern of sleep. Has suicidal thoughts. Says would not feel safe if she were outside the hospital. Has thoughts of overdosing. MENTAL STATUS EXAMINATION: Neat, cooperative, possibly somewhat less guarded. Coherent. No agitation. Mild irritability when some questions are asked, but this is short lived. No homicidal ideas or intents. No evidence of psychosis. Cognition grossly intact. Judgment and insight remain compromised. ASSESSMENT: Other specified depressive disorder. Continue current care, observations, participation in activities. Would explore collateral information. Given her frequent hospitalizations, may need to consider long-term care. Further recommendations to be made depending on the clinical picture.
[2021-11-11] MEDS: BACITRACIN OINTMENT 30GM TUBE TOP PRN ×2 (16:08→21:03)
[2021-11-11] MEDS: PRAZOSIN 1 MG CAP PO SCH (20:49)
[2021-11-11] MEDS ORDERED: LORazepam 2 MG/ML VIAL IM STA (23:07)
[2021-11-11] MEDS ORDERED: HALOPERIDOL 5MG/ML VIAL (J1630 PER 1) IM STA (23:07)
--- NOTE | 2021-11-11 23:32 | IPNPDOC ---
Text Note Date of Service The patient was seen on 11/11/21. NOTE CODE 25 Report: Patient was noted to barricade herself in shower and cutting her left dorsal side of forearm with pieces of plastic spoon that had been sharpened. Pt was combative and fighting staff when she was found and asked to stop. Multiple staff members required to escort pt out of shower. She was observed in the R&S room, restraints applied with 2 finger breaths and brisk cap refill appreciated. Superficial cuts noted to left FA in mone cross pattern, overlying scars fo similar pattern. She denied pain of the arm and requested female staff help her change clothes; dry pants, gown top in place. Pt CTA, RRR. there is a component of body habitus, but no swelling appreciated to LUE compared to RUE. Assessment and Plan: - Patient was restrained - The patient was a danger to self - Failed de-escalation interventions - Staff has contacted Psychiatry; they have placed orders for physical and chemical restraints - RN to notify provider if any VS changes once they are obtained - Plan for site care of the left FA VS,Fishbone, I+O VS, Fishbone, I+O Vital Signs Date Time Temp Pulse Resp B/P (MAP) Pulse Ox O2 Delivery O2 Flow Rate FiO2 11/11/21 20:49 129/69 11/11/21 17:01 98.2 100 20 99 Room Air ISIDRO MADRID NP Nov 11, 2021 23:32
[2021-11-12] VITALS: BP 123/58
[2021-11-12 00:15] VITALS: BP 125/63
[2021-11-12 06:46] VITALS: BP 126/68
[2021-11-12] MEDS: ESCITALOPRAM OXALATE 10 MG TAB (LEXAPRO) PO SCH (09:26)
[2021-11-12] MEDS: hydroCHLOROthiazide 12.5 MG CAPSULE PO SCH (09:26)
[2021-11-12] MEDS: MONTELUKAST 10 MG TAB PO SCH (09:27)
[2021-11-12] MEDS: cloNIDine 0.1MG TABLET PO SCH ×2 (09:27→20:48)
[2021-11-12] MEDS: OXcarbazepine 150 MG TAB PO SCH ×2 (09:27→20:48)
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
--- NOTE | 2021-11-12 11:49 | MHPR ---
General Date: Nov 12, 2021 Time: 11:43 Post-Restraint Evaluation THE OUTCOME OF THE RESTRAINT: Positive patient is not combative or aggressive EFFECTIVENESS OF THE RESTRAINT: Mechanical and/or chemical: Positive ANY EVIDENCE THAT THE PATIENT WAS AFFECTED EMOTIONALLY: Patient has a history of self-harm gestures also a history of Emotional Dysregulation Disorder, much of these behaviors are symptoms of her personality disorder and not suicidal in nature ANY NEED FOR COUNSELING/ASSISTANCE: Patient had been speaking to RN prior to her self-harm gestures. She denies any need for counseling due to restraints CHANGES IN TREATMENT PLAN: Pt states today that she wants to be discharged and reinforced that if she can be free of any self-harm gestures she can be discharged on Wednesday RECOMMENDATIONS FOR FUTURE INCIDENTS: Continue all medications and therapies. Staff made the following attempts prior to restraints: Validate Feelings Mediation Redirection Contract for Safety Staff Support Behavioral Techniques Calming Interventions CASSIUS GUERRA NP Nov 12, 2021 11:49
[2021-11-12] MEDS: BACITRACIN OINTMENT 30GM TUBE TOP PRN (14:33)
[2021-11-12 17:55] VITALS: BP 130/74
[2021-11-12] MEDS: PRAZOSIN 1 MG CAP PO SCH (20:49)
[2021-11-13 06:27] VITALS: BP 125/56
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
[2021-11-13] MEDS: OXcarbazepine 150 MG TAB PO SCH ×2 (10:08→20:35)
[2021-11-13] MEDS: ESCITALOPRAM OXALATE 10 MG TAB (LEXAPRO) PO SCH (10:09)
[2021-11-13] MEDS: MONTELUKAST 10 MG TAB PO SCH (10:09)
[2021-11-13] MEDS: hydroCHLOROthiazide 12.5 MG CAPSULE PO SCH (10:09)
[2021-11-13] MEDS: cloNIDine 0.1MG TABLET PO SCH ×2 (10:09→20:35)
[2021-11-13] MEDS: BACITRACIN OINTMENT 30GM TUBE TOP PRN ×2 (17:11→23:08)
[2021-11-13 17:53] VITALS: BP 124/85
[2021-11-13] MEDS: PRAZOSIN 1 MG CAP PO SCH (20:35)
[2021-11-14] MEDS: traZODone 50 MG TAB PO PRN (00:11)
[2021-11-14] MEDS: hydrOXYzine 50 MG TAB PO PRN (00:12)
[2021-11-14 06:19] VITALS: BP 103/52
[2021-11-14] MEDS ORDERED: HYDR12CA PO (07:07)
[2021-11-14] MEDS ORDERED: LEXA1TAB PO (07:07)
[2021-11-14] MEDS ORDERED: MONT10TA10 PO (07:07)
[2021-11-14] MEDS ORDERED: BACI50OI TOP (07:07)
[2021-11-14] MEDS ORDERED: TRAZ-252 PO (07:07)
[2021-11-14] MEDS ORDERED: VENTAER INH (07:07)
[2021-11-14] MEDS ORDERED: MINI5CAP PO (07:07)
[2021-11-14] MEDS: hydroCHLOROthiazide 12.5 MG CAPSULE PO SCH (08:34)
[2021-11-14] MEDS: MONTELUKAST 10 MG TAB PO SCH (08:34)
[2021-11-14 08:37] VITALS: BP 117/79
[2021-11-14] MEDS: ESCITALOPRAM OXALATE 10 MG TAB (LEXAPRO) PO SCH (08:37)
[2021-11-14] MEDS: OXcarbazepine 150 MG TAB PO SCH (08:37)
[2021-11-14] MEDS: cloNIDine 0.1MG TABLET PO SCH (08:37)
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
== END 2021-11-14 11:12 | disposition home or self-care (01) | DRG 753 ==
LOC: M ED 22:25 → M ED INP 11-08 00:39 → M PSY 11-08 01:34
PROVIDERS: ADMIT Psychiatry & Neurology Psychiatry; ATTEND Psychiatry & Neurology Psychiatry
DX: F31.30 Bipolar disorder, current episode depressed, mild or moderate severity, unspecified (principal); Z68.44 Body mass index [BMI] 60.0-69.9, adult; R45.851 Suicidal ideations; F43.10 Post-traumatic stress disorder, unspecified; F41.9 Anxiety disorder, unspecified; F60.3 Borderline personality disorder; Z79.899 Other long term (current) drug therapy; J45.909 Unspecified asthma, uncomplicated; I10 Essential (primary) hypertension; E66.9 Obesity, unspecified

== ENCOUNTER 2021-11-27 06:38 | Inpatient (IN) | payer MEDICAID, OTHER ==
[~2021-11-27] VITALS: Ht 157.5 cm; Wt 160.4 kg
[~2021-11-27 06:38] MED LIST changes: +BACI50OI TOP; +HYDR50TA70 PO; +MINI5CAP PO; +MONT10TA97 PO; +VENTAER INH; +prazosin
[2021-11-27 07:37] LABS: HEMOGLOBIN 11.8 g/dl (12.0-15.5); MEAN CORPUSCULAR HEMOGLOBIN 25.7 pg (27.0-33.0); MEAN CORPUSCULAR HGB CONC 31.1 g/dl (32.0-36.5); MEAN CORPUSCULAR VOLUME 82.6 fl (80.0-96.0); PLATELET COUNT, AUTOMATED 321 10^3/uL (150-450); WHITE BLOOD COUNT 10.9 10^3/uL (4.0-10.0)
[2021-11-27 08:00] LABS: AMPHETAMINES LEVEL URINE NEGATIVE (NEGATIVE); BARBITURATES URINE NEGATIVE (NEGATIVE); BENZODIAZEPINES URINE NEGATIVE (NEGATIVE); CANNABINOIDS URINE NEGATIVE (NEGATIVE); COCAINE METABOLITE URINE NEGATIVE (NEGATIVE); METHADONE URINE NEGATIVE (NEGATIVE); OPIATES URINE NEGATIVE (NEGATIVE); PHENCYCLIDINE URINE NEGATIVE (NEGATIVE)
[2021-11-27 08:05] LABS: HCG, SERUM QUALITATIVE NEGATIVE (NEGATIVE)
[2021-11-27 08:09] LABS: ACETAMINOPHEN LEVEL < 2.0 UG/ML (10.0-30.0); ALBUMIN 3.4 GM/DL (3.2-5.2); ALT/SGPT 24 U/L (12-78); BILIRUBIN,DIRECT < 0.1 MG/DL (0.0-0.2); BILIRUBIN,TOTAL 0.2 MG/DL (0.2-1.0); BLOOD UREA NITROGEN 19 MG/DL (7-18); CALCIUM LEVEL 9.3 MG/DL (8.5-10.1); CARBON DIOXIDE LEVEL 29 MEQ/L (21-32); CHLORIDE LEVEL 105 MEQ/L (98-107); CREATININE FOR GFR 0.98 MG/DL (0.55-1.30); ETHYL ALCOHOL (ETHANOL) < 0.003 % (0.000-0.010); GLOMERULAR FILTRATION RATE > 60.0 (>60); GLUCOSE, FASTING 133 MG/DL (70-100); POTASSIUM SERUM 4.1 MEQ/L (3.5-5.1); SALICYLATE LEVEL < 1.7 MG/DL (5.0-30.0); SODIUM LEVEL 139 MEQ/L (136-145); TOTAL PROTEIN 6.9 GM/DL (6.4-8.2)
[2021-11-27 08:35] LABS: RSV AMPLIFICATION NEGATIVE (NEGATIVE)
[2021-11-27] MEDS ORDERED: ALBU8.5H INH (11:03)
[2021-11-27] MEDS ORDERED: LEXA1TAB PO (11:23)
[2021-11-27] MEDS ORDERED: HOME MED LIST COMPLETE! XX SCH (11:25)
[2021-11-27] MEDS ORDERED: BACITRACIN OINTMENT 30GM TUBE TOP PRN (15:30)
[2021-11-27] MEDS ORDERED: traZODone 50 MG TAB PO PRN (15:30)
[2021-11-27] MEDS ORDERED: MAALOX 30 ML SUSP *UDC PO PRN (15:30)
[2021-11-27] MEDS ORDERED: MOM 30ML SUSPENSION UDC PO PRN (15:30)
[2021-11-27] MEDS ORDERED: ACETAMINOPHEN TAB 650MG DOSE (2X325MG) PO PRN (15:30)
[2021-11-27] MEDS ORDERED: ALBUTEROL 90 MCG/ACT 8GM HFA INHALER INH PRN ×2 (15:30)
[2021-11-27] MEDS: cloNIDine 0.1MG TABLET PO SCH (20:30)
[2021-11-27] MEDS: PRAZOSIN 1 MG CAP PO SCH (20:30)
[2021-11-27] MEDS: OXcarbazepine 150 MG TAB PO SCH (20:30)
[2021-11-27 21:01] VITALS: BP 138/89
[2021-11-27] MEDS: hydrOXYzine 50 MG TAB PO PRN (21:37)
[2021-11-27] MEDS ORDERED: HALOPERIDOL 5MG/ML VIAL (J1630 PER 1) IM STA (22:31)
[2021-11-27] MEDS ORDERED: diphenhydrAMINE 50MG/ML VIAL (J1200) IM STA (22:31)
[2021-11-27] MEDS ORDERED: LORazepam 2 MG/ML VIAL IM STA (22:31)
[2021-11-27 22:45] VITALS: BP 128/85
[2021-11-27 23:00] VITALS: BP 138/79
[2021-11-28] VITALS: BP 140/71
[2021-11-28] MEDS: cloNIDine 0.1MG TABLET PO SCH ×2 (10:21→20:58)
[2021-11-28] MEDS: ESCITALOPRAM OXALATE 10 MG TAB (LEXAPRO) PO SCH (10:22)
[2021-11-28] MEDS: hydroCHLOROthiazide 12.5 MG CAPSULE PO SCH (10:22)
[2021-11-28] MEDS: MONTELUKAST 10 MG TAB PO SCH (10:23)
[2021-11-28] MEDS: OXcarbazepine 150 MG TAB PO SCH ×2 (10:23→20:58)
[2021-11-28 16:23] VITALS: BP 143/81
[2021-11-28] MEDS: PRAZOSIN 1 MG CAP PO SCH (20:58)
[2021-11-29 06:53] VITALS: BP 118/63
[2021-11-29] MEDS: cloNIDine 0.1MG TABLET PO SCH ×2 (09:36→20:53)
[2021-11-29] MEDS: OXcarbazepine 150 MG TAB PO SCH ×2 (09:36→20:53)
[2021-11-29] MEDS: ESCITALOPRAM OXALATE 10 MG TAB (LEXAPRO) PO SCH (09:36)
[2021-11-29] MEDS: MONTELUKAST 10 MG TAB PO SCH (09:36)
[2021-11-29] MEDS: hydroCHLOROthiazide 12.5 MG CAPSULE PO SCH (09:36)
[2021-11-29] MEDS: hydrOXYzine 50 MG TAB PO PRN (15:35)
[2021-11-29 17:44] VITALS: BP 147/89
[2021-11-29] MEDS: OLANZapine ORAL DISINTEGRATING TAB 5MG PO PRN (18:03)
[2021-11-29] MEDS: PRAZOSIN 1 MG CAP PO SCH (20:52)
[2021-11-30 06:51] VITALS: BP 117/56
[2021-11-30] MEDS: OXcarbazepine 150 MG TAB PO SCH ×2 (09:56→20:49)
[2021-11-30] MEDS: hydroCHLOROthiazide 12.5 MG CAPSULE PO SCH (09:56)
[2021-11-30] MEDS: MONTELUKAST 10 MG TAB PO SCH (09:56)
[2021-11-30] MEDS: ESCITALOPRAM OXALATE 10 MG TAB (LEXAPRO) PO SCH (09:56)
[2021-11-30] MEDS: cloNIDine 0.1MG TABLET PO SCH ×2 (09:57→20:49)
[2021-11-30] MEDS: PRAZOSIN 1 MG CAP PO SCH (20:49)
[2021-11-30] MEDS ORDERED: LORazepam 2 MG/ML VIAL IM STA (22:42)
[2021-11-30] MEDS ORDERED: HALOPERIDOL 5MG/ML VIAL (J1630 PER 1) IM STA (22:42)
[2021-11-30] MEDS ORDERED: diphenhydrAMINE 50MG/ML VIAL (J1200) IM STA (22:42)
[2021-11-30 23:45] VITALS: BP 138/78
[2021-12-01] VITALS: BP 135/74
[2021-12-01 06:43] VITALS: BP 124/57
[2021-12-01] MEDS: OXcarbazepine 150 MG TAB PO SCH ×2 (09:47→23:48)
[2021-12-01] MEDS: hydroCHLOROthiazide 12.5 MG CAPSULE PO SCH (09:48)
[2021-12-01] MEDS: ESCITALOPRAM OXALATE 10 MG TAB (LEXAPRO) PO SCH (09:48)
[2021-12-01] MEDS: MONTELUKAST 10 MG TAB PO SCH (09:48)
[2021-12-01] MEDS: cloNIDine 0.1MG TABLET PO SCH ×2 (09:51→23:48)
[2021-12-01] MEDS: OLANZapine ORAL DISINTEGRATING TAB 5MG PO PRN (15:05)
[2021-12-01 16:06] VITALS: BP 116/57
[2021-12-01] MEDS: hydrOXYzine 50 MG TAB PO PRN (17:09)
[2021-12-01] MEDS: PRAZOSIN 1 MG CAP PO SCH (23:48)
[2021-12-02 06:40] VITALS: BP 105/47
[2021-12-02] MEDS: MONTELUKAST 10 MG TAB PO SCH (09:13)
[2021-12-02] MEDS: ESCITALOPRAM OXALATE 10 MG TAB (LEXAPRO) PO SCH (09:13)
[2021-12-02] MEDS: OXcarbazepine 150 MG TAB PO SCH ×2 (09:13→21:00)
[2021-12-02] MEDS: cloNIDine 0.1MG TABLET PO SCH ×2 (09:13→21:00)
[2021-12-02] MEDS: hydroCHLOROthiazide 12.5 MG CAPSULE PO SCH (09:13)
[2021-12-02] MEDS: hydrOXYzine 50 MG TAB PO PRN ×2 (09:56→23:54)
[2021-12-02 16:51] VITALS: BP 133/50
[2021-12-02] MEDS: PRAZOSIN 1 MG CAP PO SCH (21:35)
[2021-12-03] MEDS: hydroCHLOROthiazide 12.5 MG CAPSULE PO SCH (09:19)
[2021-12-03] MEDS: ESCITALOPRAM OXALATE 10 MG TAB (LEXAPRO) PO SCH (09:19)
[2021-12-03] MEDS: OXcarbazepine 150 MG TAB PO SCH ×2 (09:19→22:15)
[2021-12-03] MEDS: MONTELUKAST 10 MG TAB PO SCH (09:19)
[2021-12-03] MEDS: cloNIDine 0.1MG TABLET PO SCH ×2 (09:23→22:15)
[2021-12-03 12:43] VITALS: BP 144/70
[2021-12-03 14:44] LABS: BASO % 0.2 % (0.0-1.0); EOS # 0.1 10^3/uL (0.0-0.5); EOS % 1.1 % (0.0-3.0); HEMATOCRIT 39.2 % (36.0-47.0); LYMPH # 3.3 10^3/uL (1.5-5.0); LYMPH % 32.1 % (24.0-44.0); MEAN CORPUSCULAR HEMOGLOBIN 25.3 pg (27.0-33.0); MEAN CORPUSCULAR HGB CONC 30.6 g/dl (32.0-36.5); MEAN CORPUSCULAR VOLUME 82.5 fl (80.0-96.0); MONO # 0.6 10^3/uL (0.0-0.8); MONO % 5.8 % (2.0-8.0); NEUTROPHILS # 6.1 10^3/uL (1.5-8.5); NEUTROPHILS % 60.4 % (36.0-66.0); PLATELET COUNT, AUTOMATED 291 10^3/uL (150-450); RED BLOOD COUNT 4.75 10^6/uL (4.00-5.40); WHITE BLOOD COUNT 10.2 10^3/uL (4.0-10.0)
[2021-12-03 15:12] LABS: CK-MB VALUE MASS < 1.0 NG/ML (<3.6); CPK CREATINE PHOSPHOKINASE 79 U/L (26-192); MB/CK RELATIVE INDEX 1.27 (< OR =4)
[2021-12-03] MEDS ORDERED: COMBIVENT RESPIMAT 100-20MCG INHALER 4GM INH PRN (15:20)
[2021-12-03 15:21] LABS: ALBUMIN 3.3 GM/DL (3.2-5.2); ALT/SGPT 27 U/L (12-78); BILIRUBIN,TOTAL 0.2 MG/DL (0.2-1.0); BLOOD UREA NITROGEN 12 MG/DL (7-18); CALCIUM LEVEL 9.1 MG/DL (8.5-10.1); CARBON DIOXIDE LEVEL 31 MEQ/L (21-32); CHLORIDE LEVEL 105 MEQ/L (98-107); CREATININE FOR GFR 0.58 MG/DL (0.55-1.30); GLOMERULAR FILTRATION RATE > 60.0 (>60); GLUCOSE, FASTING 133 MG/DL (70-100); MAGNESIUM LEVEL 2.3 MG/DL (1.8-2.4); POTASSIUM SERUM 3.8 MEQ/L (3.5-5.1); SODIUM LEVEL 140 MEQ/L (136-145); TOTAL PROTEIN 6.8 GM/DL (6.4-8.2)
[2021-12-03 16:08] VITALS: BP 131/82
[2021-12-03] MEDS: PRAZOSIN 1 MG CAP PO SCH (22:15)
[2021-12-03] MEDS: hydrOXYzine 50 MG TAB PO PRN (23:08)
[2021-12-03] MEDS ORDERED: LORazepam 2 MG TAB PO STA (23:42)
[2021-12-03] MEDS ORDERED: diphenhydrAMINE 50MG CAP PO STA (23:42)
[2021-12-04] VITALS (7 sets, daily range): BP systolic 129–147; BP diastolic 66–82
[2021-12-04] MEDS: OXcarbazepine 150 MG TAB PO SCH ×2 (09:30→21:00)
[2021-12-04] MEDS: MONTELUKAST 10 MG TAB PO SCH (09:30)
[2021-12-04] MEDS: hydroCHLOROthiazide 12.5 MG CAPSULE PO SCH (09:30)
[2021-12-04] MEDS: ESCITALOPRAM OXALATE 10 MG TAB (LEXAPRO) PO SCH (09:30)
[2021-12-04] MEDS: cloNIDine 0.1MG TABLET PO SCH ×2 (09:30→21:00)
[2021-12-04] MEDS: OLANZapine ORAL DISINTEGRATING TAB 5MG PO PRN (14:26)
[2021-12-04] MEDS: hydrOXYzine 50 MG TAB PO PRN (14:26)
[2021-12-04] MEDS ORDERED: hydrOXYzine 50 MG TAB PO STA (15:23)
[2021-12-04] MEDS: PRAZOSIN 1 MG CAP PO SCH (21:00)
[2021-12-05 06:26] VITALS: BP 150/71
[2021-12-05] MEDS ORDERED: ESCITALOPRAM OXALATE 10 MG TAB (LEXAPRO) PO SCH (09:00)
[2021-12-05] MEDS: MONTELUKAST 10 MG TAB PO SCH (09:26)
[2021-12-05 09:27] VITALS: BP 155/90
[2021-12-05] MEDS: cloNIDine 0.1MG TABLET PO SCH (09:27)
[2021-12-05] MEDS: hydroCHLOROthiazide 12.5 MG CAPSULE PO SCH (09:27)
[2021-12-05] MEDS: OXcarbazepine 150 MG TAB PO SCH (09:27)
[2021-12-05] MEDS ORDERED: LEXA1TAB PO (09:50)
== END 2021-12-05 11:56 | disposition home or self-care (01) | DRG 753 ==
LOC: M ED 06:38 → UNDOADMIN 15:30 → M ED INP 15:30 → M PSY 20:20 → M ED INP 21:09
PROVIDERS: ADMIT Psychiatry & Neurology Psychiatry; ATTEND Psychiatry & Neurology Psychiatry
DX: F31.30 Bipolar disorder, current episode depressed, mild or moderate severity, unspecified (principal); R45.851 Suicidal ideations; F43.10 Post-traumatic stress disorder, unspecified; F60.3 Borderline personality disorder; Z79.899 Other long term (current) drug therapy

== ENCOUNTER 2021-12-09 01:33 | Inpatient (IN) | payer MEDICAID, OTHER ==
[~2021-12-09] VITALS: Ht 160 cm; Wt 161.5 kg
[~2021-12-09 01:33] MED LIST changes: -LATU40TA PO; +LATU40TA2 PO; -LATU80TA PO; +LATU80TA2 PO
[2021-12-09 02:56] LABS: HEMATOCRIT 38.4 % (36.0-47.0); HEMOGLOBIN 11.9 g/dl (12.0-15.5); MEAN CORPUSCULAR HEMOGLOBIN 25.3 pg (27.0-33.0); MEAN CORPUSCULAR VOLUME 81.7 fl (80.0-96.0); PLATELET COUNT, AUTOMATED 321 10^3/uL (150-450); WHITE BLOOD COUNT 12.5 10^3/uL (4.0-10.0)
[2021-12-09 03:19] LABS: AMPHETAMINES LEVEL URINE NEGATIVE (NEGATIVE); BARBITURATES URINE NEGATIVE (NEGATIVE); BENZODIAZEPINES URINE NEGATIVE (NEGATIVE); CANNABINOIDS URINE NEGATIVE (NEGATIVE); COCAINE METABOLITE URINE NEGATIVE (NEGATIVE); METHADONE URINE NEGATIVE (NEGATIVE); OPIATES URINE NEGATIVE (NEGATIVE); PHENCYCLIDINE URINE NEGATIVE (NEGATIVE)
[2021-12-09 03:44] LABS: ACETAMINOPHEN LEVEL < 2.0 UG/ML (10.0-30.0); ALBUMIN 3.3 GM/DL (3.2-5.2); ALT/SGPT 29 U/L (12-78); BILIRUBIN,DIRECT < 0.1 MG/DL (0.0-0.2); BILIRUBIN,TOTAL 0.2 MG/DL (0.2-1.0); BLOOD UREA NITROGEN 19 MG/DL (7-18); CALCIUM LEVEL 8.9 MG/DL (8.5-10.1); CARBON DIOXIDE LEVEL 26 MEQ/L (21-32); CHLORIDE LEVEL 108 MEQ/L (98-107); CREATININE FOR GFR 0.66 MG/DL (0.55-1.30); ETHYL ALCOHOL (ETHANOL) < 0.003 % (0.000-0.010); GLOMERULAR FILTRATION RATE > 60.0 (>60); GLUCOSE, FASTING 91 MG/DL (70-100); HCG, SERUM QUALITATIVE NEGATIVE (NEGATIVE); POTASSIUM SERUM 4.2 MEQ/L (3.5-5.1); SALICYLATE LEVEL 1.7 MG/DL (5.0-30.0); SODIUM LEVEL 142 MEQ/L (136-145); TOTAL PROTEIN 7.1 GM/DL (6.4-8.2)
[2021-12-09] MEDS ORDERED: MED NOTE (10:47)
[2021-12-09] MEDS ORDERED: HOME MED LIST COMPLETE! XX SCH (10:50)
[2021-12-09] MEDS: cloNIDine 0.1MG TABLET PO SCH (20:55)
[2021-12-09] MEDS: OXcarbazepine 150 MG TAB PO SCH (20:55)
[2021-12-09] MEDS ORDERED: PRAZOSIN 1 MG CAP PO SCH (21:00)
[2021-12-10] MEDS ORDERED: hydroCHLOROthiazide 12.5 MG CAPSULE PO SCH (09:00)
[2021-12-10] MEDS ORDERED: ESCITALOPRAM OXALATE 10 MG TAB (LEXAPRO) PO SCH (09:00)
[2021-12-10] MEDS: cloNIDine 0.1MG TABLET PO SCH ×2 (09:00→21:00)
[2021-12-10] MEDS: OXcarbazepine 150 MG TAB PO SCH ×2 (09:00→21:00)
[2021-12-10] MEDS ORDERED: MONTELUKAST 10 MG TAB PO SCH (09:00)
[2021-12-10] MEDS ORDERED: ALBUTEROL 90 MCG/ACT 8GM HFA INHALER INH PRN (14:35)
[2021-12-10] MEDS ORDERED: MAALOX 30 ML SUSP *UDC PO PRN (14:35)
[2021-12-10] MEDS ORDERED: hydrOXYzine 50 MG TAB PO PRN (14:35)
[2021-12-10] MEDS ORDERED: MOM 30ML SUSPENSION UDC PO PRN (14:35)
[2021-12-10] MEDS ORDERED: traZODone 50 MG TAB PO PRN (14:35)
[2021-12-10 16:44] VITALS: BP 168/102
[2021-12-10] MEDS: PRAZOSIN 1 MG CAP PO SCH (21:06)
[2021-12-11 06:31] VITALS: BP 126/71
[2021-12-11] MEDS: OXcarbazepine 150 MG TAB PO SCH (08:29)
[2021-12-11] MEDS: MONTELUKAST 10 MG TAB PO SCH (08:30)
[2021-12-11] MEDS: cloNIDine 0.1MG TABLET PO SCH ×2 (08:30→21:02)
[2021-12-11] MEDS: ESCITALOPRAM OXALATE 10 MG TAB (LEXAPRO) PO SCH (09:00)
[2021-12-11] MEDS ORDERED: ESCITALOPRAM OXALATE 10 MG TAB (LEXAPRO) PO SCH (09:00)
[2021-12-11] MEDS: hydroCHLOROthiazide 12.5 MG CAPSULE PO SCH (09:00)
[2021-12-11 18:21] VITALS: BP 141/86
[2021-12-11] MEDS: PRAZOSIN 1 MG CAP PO SCH (21:02)
[2021-12-11] MEDS: OXcarbazepine 300 MG TAB PO SCH (21:02)
[2021-12-12 06:20] VITALS: BP 139/77
[2021-12-12] MEDS: GASTROGRAFIN SOLUTION 30ML PO SCH ×2 (07:30→07:59)
[2021-12-12] MEDS ORDERED: ISOVUE-370 76% 100ML VIAL As Ordered ONE (08:46)
[2021-12-12] MEDS: hydroCHLOROthiazide 12.5 MG CAPSULE PO SCH (09:57)
[2021-12-12] MEDS: MONTELUKAST 10 MG TAB PO SCH (09:57)
[2021-12-12] MEDS: OXcarbazepine 300 MG TAB PO SCH ×2 (09:58→21:46)
[2021-12-12] MEDS: cloNIDine 0.1MG TABLET PO SCH ×2 (09:58→21:47)
[2021-12-12] MEDS: ESCITALOPRAM OXALATE 10 MG TAB (LEXAPRO) PO SCH (09:58)
[2021-12-12 18:00] VITALS: BP 154/76
[2021-12-12] MEDS: PRAZOSIN 1 MG CAP PO SCH (21:48)
[2021-12-13 06:47] VITALS: BP 112/60
[2021-12-13] MEDS: MONTELUKAST 10 MG TAB PO SCH (08:13)
[2021-12-13] MEDS: hydroCHLOROthiazide 12.5 MG CAPSULE PO SCH (08:14)
[2021-12-13] MEDS: OXcarbazepine 300 MG TAB PO SCH ×2 (08:14→21:01)
[2021-12-13] MEDS: ESCITALOPRAM OXALATE 10 MG TAB (LEXAPRO) PO SCH (08:14)
[2021-12-13] MEDS: cloNIDine 0.1MG TABLET PO SCH ×2 (08:14→21:00)
[2021-12-13] MEDS: PRAZOSIN 1 MG CAP PO SCH (21:00)
[2021-12-13] MEDS ORDERED: traMADol 50 MG TAB PO ONE (23:00)
[2021-12-13] MEDS: DOXYCYCLINE HYCLATE 100MG TABLET PO SCH (23:28)
[2021-12-14] MEDS ORDERED: IBUPROFEN 400MG TAB PO ONE
[2021-12-14 06:14] VITALS: BP 116/68
[2021-12-14] MEDS: OXcarbazepine 300 MG TAB PO SCH ×2 (09:21→20:48)
[2021-12-14] MEDS: cloNIDine 0.1MG TABLET PO SCH ×2 (09:21→20:49)
[2021-12-14] MEDS: MONTELUKAST 10 MG TAB PO SCH (09:21)
[2021-12-14] MEDS: hydroCHLOROthiazide 12.5 MG CAPSULE PO SCH (09:21)
[2021-12-14] MEDS: ESCITALOPRAM OXALATE 10 MG TAB (LEXAPRO) PO SCH (09:21)
[2021-12-14] MEDS: IBUPROFEN 400MG TAB PO SCH ×3 (09:22→20:48)
[2021-12-14] MEDS: DOXYCYCLINE HYCLATE 100MG TABLET PO SCH ×2 (09:22→20:48)
[2021-12-14] MEDS: ACETAMINOPHEN TAB 650MG DOSE (2X325MG) PO PRN ×2 (09:52→20:48)
[2021-12-14 17:57] VITALS: BP 122/66
[2021-12-14 18:13] LABS: GC DNA AMPLIFICATION NEGATIVE (NEGATIVE)
[2021-12-14] MEDS: PRAZOSIN 1 MG CAP PO SCH (20:49)
[2021-12-14] MEDS ORDERED: traMADol 50 MG TAB PO ONE (22:00)
[2021-12-15 06:11] VITALS: BP 150/82
[2021-12-15] MEDS: ACETAMINOPHEN TAB 650MG DOSE (2X325MG) PO PRN (06:21)
[2021-12-15] MEDS: ESCITALOPRAM OXALATE 10 MG TAB (LEXAPRO) PO SCH (08:35)
[2021-12-15] MEDS: DOXYCYCLINE HYCLATE 100MG TABLET PO SCH ×2 (08:35→21:03)
[2021-12-15] MEDS: hydroCHLOROthiazide 12.5 MG CAPSULE PO SCH (08:35)
[2021-12-15] MEDS: MONTELUKAST 10 MG TAB PO SCH (08:37)
[2021-12-15] MEDS: IBUPROFEN 400MG TAB PO SCH ×3 (08:37→21:06)
[2021-12-15] MEDS: cloNIDine 0.1MG TABLET PO SCH ×2 (08:37→21:03)
[2021-12-15] MEDS: OXcarbazepine 300 MG TAB PO SCH ×2 (08:37→21:03)
[2021-12-15] MEDS: PRAZOSIN 1 MG CAP PO SCH (21:02)
[2021-12-16] MEDS: ACETAMINOPHEN TAB 650MG DOSE (2X325MG) PO PRN ×2 (00:22→08:12)
[2021-12-16 06:23] VITALS: BP 158/74
[2021-12-16] MEDS: MONTELUKAST 10 MG TAB PO SCH (08:11)
[2021-12-16] MEDS: hydroCHLOROthiazide 12.5 MG CAPSULE PO SCH (08:11)
[2021-12-16] MEDS: DOXYCYCLINE HYCLATE 100MG TABLET PO SCH ×2 (08:11→21:38)
[2021-12-16] MEDS: ESCITALOPRAM OXALATE 10 MG TAB (LEXAPRO) PO SCH (08:11)
[2021-12-16] MEDS: OXcarbazepine 300 MG TAB PO SCH ×2 (08:11→21:38)
[2021-12-16] MEDS: cloNIDine 0.1MG TABLET PO SCH ×2 (08:11→21:38)
[2021-12-16 16:03] VITALS: BP 146/81
[2021-12-16] MEDS: IBUPROFEN 600MG TAB PO PRN (17:11)
[2021-12-16] MEDS: PRAZOSIN 1 MG CAP PO SCH (21:38)
[2021-12-17 06:19] VITALS: BP 141/85
[2021-12-17] MEDS: DOXYCYCLINE HYCLATE 100MG TABLET PO SCH ×2 (09:39→21:40)
[2021-12-17] MEDS: hydroCHLOROthiazide 12.5 MG CAPSULE PO SCH (09:39)
[2021-12-17] MEDS: ESCITALOPRAM OXALATE 10 MG TAB (LEXAPRO) PO SCH (09:39)
[2021-12-17] MEDS: MONTELUKAST 10 MG TAB PO SCH (09:39)
[2021-12-17] MEDS: OXcarbazepine 300 MG TAB PO SCH ×2 (09:39→21:41)
[2021-12-17] MEDS: cloNIDine 0.1MG TABLET PO SCH ×2 (09:40→21:41)
[2021-12-17] MEDS: IBUPROFEN 600MG TAB PO PRN ×2 (09:41→21:44)
[2021-12-17 16:14] VITALS: BP 135/59
[2021-12-17] MEDS: PRAZOSIN 1 MG CAP PO SCH (21:40)
[2021-12-18 06:35] VITALS: BP 130/79
[2021-12-18] MEDS: DOXYCYCLINE HYCLATE 100MG TABLET PO SCH (09:38)
[2021-12-18] MEDS: MONTELUKAST 10 MG TAB PO SCH (09:38)
[2021-12-18] MEDS: hydroCHLOROthiazide 12.5 MG CAPSULE PO SCH (09:38)
[2021-12-18 09:39] VITALS: BP 130/79
[2021-12-18] MEDS: OXcarbazepine 300 MG TAB PO SCH (09:39)
[2021-12-18] MEDS: cloNIDine 0.1MG TABLET PO SCH (09:39)
[2021-12-18] MEDS: ESCITALOPRAM OXALATE 10 MG TAB (LEXAPRO) PO SCH (09:39)
[2021-12-18] MEDS ORDERED: DOXY100T PO (10:43)
[2021-12-18] MEDS ORDERED: OXCA300T14 PO (10:43)
[2021-12-18] MEDS ORDERED: LEXA1TAB PO (10:43)
== END 2021-12-18 12:40 | disposition home or self-care (01) | DRG 753 ==
LOC: M ED 01:33 → M ED INP 12-10 14:33 → M PSY 12-10 16:46
PROVIDERS: ADMIT Psychiatry & Neurology Psychiatry; ATTEND Psychiatry & Neurology Psychiatry
DX: F31.9 Bipolar disorder, unspecified (principal); F60.3 Borderline personality disorder; F43.10 Post-traumatic stress disorder, unspecified; Z56.0 Unemployment, unspecified; R45.851 Suicidal ideations; Z91.52 Personal history of nonsuicidal self-harm; Z91.51 Personal history of suicidal behavior; Z20.822 Contact with and (suspected) exposure to COVID-19; I10 Essential (primary) hypertension; J45.909 Unspecified asthma, uncomplicated; E66.01 Morbid (severe) obesity due to excess calories; Z79.899 Other long term (current) drug therapy; R10.9 Unspecified abdominal pain; Z62.810 Personal history of physical and sexual abuse in childhood; Z91.410 Personal history of adult physical and sexual abuse; N75.0 Cyst of Bartholin's gland

== ENCOUNTER 2022-01-13 00:41 | Inpatient (IN) | payer MEDICAID, OTHER ==
[~2022-01-13] VITALS: Ht 160 cm; Wt 154.0 kg
[~2022-01-13 00:41] MED LIST changes: -D31000TA2 PO; +DOXY100T PO; +MED NOTE; +VITA100093 PO
[2022-01-13 03:54] LABS: HCG, SERUM QUALITATIVE NEGATIVE (NEGATIVE)
[2022-01-13 03:55] LABS: HEMATOCRIT 44.8 % (36.0-47.0); HEMOGLOBIN 13.7 g/dl (12.0-15.5); MEAN CORPUSCULAR HEMOGLOBIN 24.6 pg (27.0-33.0); MEAN CORPUSCULAR HGB CONC 30.6 g/dl (32.0-36.5); MEAN CORPUSCULAR VOLUME 80.4 fl (80.0-96.0); PLATELET COUNT, AUTOMATED 300 10^3/uL (150-450); RED BLOOD COUNT 5.57 10^6/uL (4.00-5.40); WHITE BLOOD COUNT 10.2 10^3/uL (4.0-10.0)
[2022-01-13 04:13] LABS: ACETAMINOPHEN LEVEL < 2.0 UG/ML (10.0-30.0); ALBUMIN 3.9 GM/DL (3.2-5.2); ALT/SGPT 42 U/L (12-78); BILIRUBIN,DIRECT < 0.1 MG/DL (0.0-0.2); BILIRUBIN,TOTAL 0.5 MG/DL (0.2-1.0); BLOOD UREA NITROGEN 18 MG/DL (7-18); CARBON DIOXIDE LEVEL 23 MEQ/L (21-32); CHLORIDE LEVEL 107 MEQ/L (98-107); CREATININE FOR GFR 0.74 MG/DL (0.55-1.30); ETHYL ALCOHOL (ETHANOL) < 0.003 % (0.000-0.010); GLOMERULAR FILTRATION RATE > 60.0 (>60); GLUCOSE, FASTING 101 MG/DL (70-100); POTASSIUM SERUM 4.4 MEQ/L (3.5-5.1); SODIUM LEVEL 141 MEQ/L (136-145); THYROID STIMULATING HORMONE 0.958 uIU/ML (0.358-3.740); TOTAL PROTEIN 8.3 GM/DL (6.4-8.2)
[2022-01-13 04:26] LABS: RSV AMPLIFICATION NEGATIVE (NEGATIVE)
[2022-01-13 05:22] LABS: AMPHETAMINES LEVEL URINE NEGATIVE (NEGATIVE); BARBITURATES URINE NEGATIVE (NEGATIVE); BENZODIAZEPINES URINE NEGATIVE (NEGATIVE); CANNABINOIDS URINE NEGATIVE (NEGATIVE); COCAINE METABOLITE URINE NEGATIVE (NEGATIVE); METHADONE URINE NEGATIVE (NEGATIVE); OPIATES URINE NEGATIVE (NEGATIVE); PHENCYCLIDINE URINE NEGATIVE (NEGATIVE)
[2022-01-13] MEDS ORDERED: traZODone 50 MG TAB PO PRN (06:15)
[2022-01-13] MEDS ORDERED: MAALOX 30 ML SUSP *UDC PO PRN (06:15)
[2022-01-13] MEDS ORDERED: MOM 30ML SUSPENSION UDC PO PRN (06:15)
[2022-01-13] MEDS ORDERED: ACETAMINOPHEN TAB 650MG DOSE (2X325MG) PO PRN (06:15)
[2022-01-13] MEDS ORDERED: MONT10TA97 PO (06:44)
[2022-01-13] MEDS ORDERED: PRAZ5CAP PO (06:44)
[2022-01-13] MEDS ORDERED: HYDR12CA PO (06:44)
[2022-01-13] MEDS ORDERED: LEXA1TAB2 PO (06:44)
[2022-01-13] MEDS ORDERED: TRAZ-257 PO (06:44)
[2022-01-13] MEDS ORDERED: OXCA300T14 PO (06:44)
[2022-01-13] MEDS ORDERED: HOME MED LIST COMPLETE! XX SCH (06:45)
[2022-01-13] MEDS ORDERED: ALBUTEROL 90 MCG/ACT 8GM HFA INHALER INH PRN (06:55)
[2022-01-13] MEDS: hydroCHLOROthiazide 12.5 MG CAPSULE PO SCH (09:00)
[2022-01-13] MEDS: MONTELUKAST 10 MG TAB PO SCH (09:00)
[2022-01-13] MEDS: cloNIDine 0.1MG TABLET PO SCH ×2 (09:00→21:17)
[2022-01-13] MEDS: ESCITALOPRAM OXALATE 10 MG TAB (LEXAPRO) PO SCH (09:00)
[2022-01-13] MEDS: OXcarbazepine 300 MG TAB PO SCH ×2 (09:00→21:17)
[2022-01-13 09:16] VITALS: BP 126/80
[2022-01-13 15:53] VITALS: BP 127/60
[2022-01-13] MEDS: hydrOXYzine 50 MG TAB PO PRN (19:07)
[2022-01-13] MEDS: traZODone 100 MG TAB PO PRN (21:17)
[2022-01-13] MEDS: PRAZOSIN 1 MG CAP PO SCH (21:18)
[2022-01-14 06:01] VITALS: BP 117/59
[2022-01-14 07:19] LABS: CHOLESTEROL RISK RATIO 5.897 (<5)
[2022-01-14] MEDS: ESCITALOPRAM OXALATE 10 MG TAB (LEXAPRO) PO SCH (09:34)
[2022-01-14] MEDS: cloNIDine 0.1MG TABLET PO SCH ×2 (09:34→20:56)
[2022-01-14] MEDS: OXcarbazepine 300 MG TAB PO SCH ×2 (09:35→20:56)
[2022-01-14] MEDS: MONTELUKAST 10 MG TAB PO SCH (09:35)
[2022-01-14] MEDS: hydroCHLOROthiazide 12.5 MG CAPSULE PO SCH (09:35)
[2022-01-14] MEDS: PRAZOSIN 1 MG CAP PO SCH (20:55)
[2022-01-14] MEDS: traZODone 100 MG TAB PO PRN (20:56)
[2022-01-15 06:34] VITALS: BP 149/70
[2022-01-15] MEDS: ESCITALOPRAM OXALATE 10 MG TAB (LEXAPRO) PO SCH (09:05)
[2022-01-15] MEDS: OXcarbazepine 300 MG TAB PO SCH ×2 (09:05→20:27)
[2022-01-15] MEDS: hydroCHLOROthiazide 12.5 MG CAPSULE PO SCH (09:05)
[2022-01-15] MEDS: cloNIDine 0.1MG TABLET PO SCH ×2 (09:05→20:27)
[2022-01-15] MEDS: MONTELUKAST 10 MG TAB PO SCH (09:05)
[2022-01-15 19:13] VITALS: BP 131/67
[2022-01-15] MEDS: PRAZOSIN 1 MG CAP PO SCH (20:28)
[2022-01-15] MEDS: hydrOXYzine 50 MG TAB PO PRN (22:12)
[2022-01-16 06:13] VITALS: BP 135/70
[2022-01-16] MEDS: cloNIDine 0.1MG TABLET PO SCH ×2 (09:10→20:43)
[2022-01-16] MEDS: hydroCHLOROthiazide 12.5 MG CAPSULE PO SCH (09:10)
[2022-01-16] MEDS: OXcarbazepine 300 MG TAB PO SCH ×2 (09:10→20:43)
[2022-01-16] MEDS: ESCITALOPRAM OXALATE 10 MG TAB (LEXAPRO) PO SCH (09:10)
[2022-01-16] MEDS: MONTELUKAST 10 MG TAB PO SCH (09:10)
[2022-01-16] MEDS: BREXPIPRAZOLE 0.5MG TABLET (REXULTI) PO SCH (10:34)
[2022-01-16] MEDS: hydrOXYzine 50 MG TAB PO PRN ×2 (14:33→20:42)
[2022-01-16 17:44] VITALS: BP 117/69
[2022-01-16] MEDS: PRAZOSIN 1 MG CAP PO SCH (20:43)
[2022-01-17 06:07] VITALS: BP 123/68
[2022-01-17] MEDS: ESCITALOPRAM OXALATE 10 MG TAB (LEXAPRO) PO SCH (08:31)
[2022-01-17] MEDS: BREXPIPRAZOLE 0.5MG TABLET (REXULTI) PO SCH (08:31)
[2022-01-17] MEDS: hydroCHLOROthiazide 12.5 MG CAPSULE PO SCH (08:31)
[2022-01-17] MEDS: cloNIDine 0.1MG TABLET PO SCH ×2 (08:31→20:12)
[2022-01-17] MEDS: OXcarbazepine 300 MG TAB PO SCH ×2 (08:31→20:12)
[2022-01-17] MEDS: MONTELUKAST 10 MG TAB PO SCH (08:31)
[2022-01-17] MEDS: hydrOXYzine 50 MG TAB PO PRN (09:14)
[2022-01-17 16:21] VITALS: BP 125/68
[2022-01-17] MEDS: PRAZOSIN 1 MG CAP PO SCH (20:12)
[2022-01-17] MEDS: traZODone 100 MG TAB PO PRN (22:32)
[2022-01-18 06:36] VITALS: BP 119/55
[2022-01-18] MEDS: MONTELUKAST 10 MG TAB PO SCH (08:21)
[2022-01-18] MEDS: OXcarbazepine 300 MG TAB PO SCH ×2 (08:21→20:27)
[2022-01-18] MEDS: BREXPIPRAZOLE 0.5MG TABLET (REXULTI) PO SCH (08:22)
[2022-01-18] MEDS: ESCITALOPRAM OXALATE 10 MG TAB (LEXAPRO) PO SCH (08:22)
[2022-01-18] MEDS: cloNIDine 0.1MG TABLET PO SCH ×2 (08:22→20:32)
[2022-01-18] MEDS: hydroCHLOROthiazide 12.5 MG CAPSULE PO SCH (08:22)
[2022-01-18] MEDS: hydrOXYzine 50 MG TAB PO PRN (09:25)
[2022-01-18 16:10] VITALS: BP 132/77
[2022-01-18] MEDS: PRAZOSIN 1 MG CAP PO SCH (20:28)
[2022-01-19 07:02] VITALS: BP 117/60
[2022-01-19] MEDS: hydroCHLOROthiazide 12.5 MG CAPSULE PO SCH (08:20)
[2022-01-19] MEDS: ESCITALOPRAM OXALATE 10 MG TAB (LEXAPRO) PO SCH (08:20)
[2022-01-19] MEDS: MONTELUKAST 10 MG TAB PO SCH (08:20)
[2022-01-19] MEDS: OXcarbazepine 300 MG TAB PO SCH ×2 (08:20→22:05)
[2022-01-19] MEDS: BREXPIPRAZOLE 0.5MG TABLET (REXULTI) PO SCH (08:20)
[2022-01-19] MEDS: cloNIDine 0.1MG TABLET PO SCH ×2 (08:21→22:05)
[2022-01-19] MEDS: hydrOXYzine 50 MG TAB PO PRN (18:12)
[2022-01-19 18:20] VITALS: BP 138/84
[2022-01-19] MEDS: PRAZOSIN 1 MG CAP PO SCH (22:05)
[2022-01-20 06:51] VITALS: BP 137/83
[2022-01-20] MEDS: cloNIDine 0.1MG TABLET PO SCH ×2 (09:04→20:49)
[2022-01-20] MEDS: BREXPIPRAZOLE 0.5MG TABLET (REXULTI) PO SCH (09:04)
[2022-01-20] MEDS: MONTELUKAST 10 MG TAB PO SCH (09:04)
[2022-01-20] MEDS: OXcarbazepine 300 MG TAB PO SCH ×2 (09:04→20:49)
[2022-01-20] MEDS: ESCITALOPRAM OXALATE 10 MG TAB (LEXAPRO) PO SCH (09:04)
[2022-01-20] MEDS: hydroCHLOROthiazide 12.5 MG CAPSULE PO SCH (09:04)
[2022-01-20 17:49] VITALS: BP 138/84
[2022-01-20] MEDS: hydrOXYzine 50 MG TAB PO PRN (18:04)
[2022-01-20] MEDS ORDERED: hydrOXYzine 25 MG TAB PO ONE (20:00)
[2022-01-20] MEDS: PRAZOSIN 1 MG CAP PO SCH (20:47)
[2022-01-21] MEDS: cloNIDine 0.1MG TABLET PO SCH ×2 (10:22→20:48)
[2022-01-21] MEDS: MONTELUKAST 10 MG TAB PO SCH (10:22)
[2022-01-21] MEDS: BREXPIPRAZOLE 0.5MG TABLET (REXULTI) PO SCH (10:23)
[2022-01-21] MEDS: ESCITALOPRAM OXALATE 10 MG TAB (LEXAPRO) PO SCH (10:23)
[2022-01-21] MEDS: OXcarbazepine 300 MG TAB PO SCH ×2 (10:23→20:48)
[2022-01-21] MEDS: hydroCHLOROthiazide 12.5 MG CAPSULE PO SCH (10:23)
[2022-01-21] MEDS: hydrOXYzine 50 MG TAB PO PRN (14:50)
[2022-01-21 18:46] VITALS: BP 144/81
[2022-01-21] MEDS: PRAZOSIN 1 MG CAP PO SCH (20:47)
[2022-01-22 06:30] VITALS: BP 135/83
[2022-01-22 08:20] VITALS: BP 135/83
[2022-01-22] MEDS: OXcarbazepine 300 MG TAB PO SCH (08:20)
[2022-01-22] MEDS: BREXPIPRAZOLE 0.5MG TABLET (REXULTI) PO SCH (08:20)
[2022-01-22] MEDS: MONTELUKAST 10 MG TAB PO SCH (08:20)
[2022-01-22] MEDS: cloNIDine 0.1MG TABLET PO SCH (08:20)
[2022-01-22] MEDS: hydroCHLOROthiazide 12.5 MG CAPSULE PO SCH (08:21)
[2022-01-22] MEDS ORDERED: ESCITALOPRAM OXALATE 10 MG TAB (LEXAPRO) PO SCH (09:00)
[2022-01-22] MEDS ORDERED: LEXA1TAB PO (09:46)
== END 2022-01-22 11:33 | disposition home or self-care (01) | DRG 753 ==
LOC: M ED 00:41 → M ED INP 00:42 → M PSY 08:26
PROVIDERS: ADMIT Psychiatry & Neurology Psychiatry; ATTEND Psychiatry & Neurology Psychiatry
DX: F31.9 Bipolar disorder, unspecified (principal); F43.10 Post-traumatic stress disorder, unspecified; F60.3 Borderline personality disorder; R45.851 Suicidal ideations; Z56.0 Unemployment, unspecified; Z62.810 Personal history of physical and sexual abuse in childhood; Z91.410 Personal history of adult physical and sexual abuse; Z91.51 Personal history of suicidal behavior; Z91.52 Personal history of nonsuicidal self-harm; Z91.14 Patient's other noncompliance with medication regimen; I10 Essential (primary) hypertension; J45.909 Unspecified asthma, uncomplicated; E66.01 Morbid (severe) obesity due to excess calories; Z62.811 Personal history of psychological abuse in childhood; Z20.822 Contact with and (suspected) exposure to COVID-19; Z79.899 Other long term (current) drug therapy; Z90.49 Acquired absence of other specified parts of digestive tract

== ENCOUNTER → 2022-02-04 | Outpatient (CLI) | payer OTHER ==
[~2022-02-04] MED LIST changes: +HYDR12.55; +TRAZ-257 PO
[2022-02-04 13:16] LABS: BASO % 0.2 % (0.0-1.0); EOS # 0.1 10^3/uL (0.0-0.5); EOS % 1.1 % (0.0-3.0); HEMATOCRIT 40.9 % (36.0-47.0); HEMOGLOBIN 12.7 g/dl (12.0-15.5); LYMPH # 3.6 10^3/uL (1.5-5.0); LYMPH % 44.1 % (24.0-44.0); MEAN CORPUSCULAR HEMOGLOBIN 25.3 pg (27.0-33.0); MEAN CORPUSCULAR HGB CONC 31.1 g/dl (32.0-36.5); MEAN CORPUSCULAR VOLUME 81.5 fl (80.0-96.0); MONO # 0.6 10^3/uL (0.0-0.8); NEUTROPHILS # 3.9 10^3/uL (1.5-8.5); NEUTROPHILS % 47.2 % (36.0-66.0); PLATELET COUNT, AUTOMATED 257 10^3/uL (150-450); RED BLOOD COUNT 5.02 10^6/uL (4.00-5.40); WHITE BLOOD COUNT 8.2 10^3/uL (4.0-10.0)
[2022-02-04 14:11] LABS: ALBUMIN 3.3 GM/DL (3.2-5.2); ALT/SGPT 36 U/L (12-78); BILIRUBIN,TOTAL 0.4 MG/DL (0.2-1.0); BLOOD UREA NITROGEN 13 MG/DL (7-18); CALCIUM LEVEL 8.7 MG/DL (8.5-10.1); CARBON DIOXIDE LEVEL 27 MEQ/L (21-32); CHLORIDE LEVEL 107 MEQ/L (98-107); CHOLESTEROL LEVEL 227 MG/DL (<200); CHOLESTEROL RISK RATIO 5.675 (<5); CREATININE FOR GFR 0.65 MG/DL (0.55-1.30); FREE T4 1.14 NG/DL (0.76-1.46); GLOMERULAR FILTRATION RATE > 60.0 (>60); GLUCOSE, FASTING 95 MG/DL (70-100); HDL CHOLESTEROL 40 MG/DL (>40); LDL CHOLESTEROL 154 MG/DL (<100); NON-HDL-C 187 MG/DL; POTASSIUM SERUM 4.2 MEQ/L (3.5-5.1); SODIUM LEVEL 140 MEQ/L (136-145); TOTAL 25(OH) VITAMIN D 30.7 NG/ML (30.0-100.0); TOTAL PROTEIN 6.7 GM/DL (6.4-8.2); TRIGLYCERIDES LEVEL 166 MG/DL (<150)
[2022-02-04 14:46] LABS: HEMOGLOBIN A1c 5.7 %
== END ==
LOC: M PLALAB 09:17
PROVIDERS: ATTEND Physician Assistant
DX: R60.0 Localized edema (principal)

== ENCOUNTER 2022-02-05 11:37 | Emergency (ER) | payer OTHER ==
[~2022-02-05] VITALS: Ht 160 cm; Wt 159.8 kg
[~2022-02-05 11:37] MED LIST changes: -HYDR12.55
[2022-02-05] MEDS ORDERED: HYDR12.55 (11:45)
[2022-02-05 13:13] LABS: RSV AMPLIFICATION NEGATIVE (NEGATIVE)
[2022-02-05 15:01] LABS: HEMATOCRIT 40.5 % (36.0-47.0); HEMOGLOBIN 12.9 g/dl (12.0-15.5); MEAN CORPUSCULAR HEMOGLOBIN 25.5 pg (27.0-33.0); MEAN CORPUSCULAR HGB CONC 31.9 g/dl (32.0-36.5); PLATELET COUNT, AUTOMATED 270 10^3/uL (150-450); RED BLOOD COUNT 5.06 10^6/uL (4.00-5.40); WHITE BLOOD COUNT 10.2 10^3/uL (4.0-10.0)
[2022-02-05 15:33] LABS: HCG, SERUM QUALITATIVE NEGATIVE (NEGATIVE)
[2022-02-05 15:41] LABS: ACETAMINOPHEN LEVEL < 2.0 UG/ML (10.0-30.0); ALBUMIN 3.6 GM/DL (3.2-5.2); ALT/SGPT 37 U/L (12-78); BILIRUBIN,DIRECT < 0.1 MG/DL (0.0-0.2); BILIRUBIN,TOTAL 0.3 MG/DL (0.2-1.0); BLOOD UREA NITROGEN 11 MG/DL (7-18); CALCIUM LEVEL 9.1 MG/DL (8.5-10.1); CARBON DIOXIDE LEVEL 27 MEQ/L (21-32); CHLORIDE LEVEL 108 MEQ/L (98-107); CREATININE FOR GFR 0.61 MG/DL (0.55-1.30); ETHYL ALCOHOL (ETHANOL) < 0.003 % (0.000-0.010); GLOMERULAR FILTRATION RATE > 60.0 (>60); GLUCOSE, FASTING 98 MG/DL (70-100); POTASSIUM SERUM 4.2 MEQ/L (3.5-5.1); SALICYLATE LEVEL < 1.7 MG/DL (5.0-30.0); SODIUM LEVEL 140 MEQ/L (136-145); THYROID STIMULATING HORMONE 0.808 uIU/ML (0.358-3.740); TOTAL PROTEIN 7.1 GM/DL (6.4-8.2)
[2022-02-05 16:17] VITALS: BP 137/65
== END 2022-02-05 16:23 | disposition home or self-care (01) ==
LOC: M ED 12:42
DX: F32.A Depression, unspecified (principal); R45.851 Suicidal ideations; J45.909 Unspecified asthma, uncomplicated; I10 Essential (primary) hypertension; F31.9 Bipolar disorder, unspecified; Z79.51 Long term (current) use of inhaled steroids; Z79.899 Other long term (current) drug therapy

== ENCOUNTER 2022-02-23 15:46 | Inpatient (IN) | payer OTHER ==
[2022-02-22 22:45] VITALS: BP 134/78
[~2022-02-23] VITALS: Ht 160 cm; Wt 154.3 kg
[~2022-02-23 15:46] MED LIST changes: +BUPR-71; +BUPR-71 PO; -BUPR150T5; -BUPR150T5 PO
[2022-02-23] MEDS ORDERED: NS 1,000 ML IV ONE (16:00)
[2022-02-23] MEDS ORDERED: LEXA1TAB2 PO (16:02)
[2022-02-23] MEDS ORDERED: REXU1TAB3 PO (16:02)
[2022-02-23 16:25] LABS: BASO % 0.3 % (0.0-1.0); EOS # 0.1 10^3/uL (0.0-0.5); EOS % 0.8 % (0.0-3.0); HEMATOCRIT 42.7 % (36.0-47.0); HEMOGLOBIN 13.5 g/dl (12.0-15.5); LYMPH # 3.6 10^3/uL (1.5-5.0); LYMPH % 32.9 % (24.0-44.0); MEAN CORPUSCULAR HEMOGLOBIN 26.3 pg (27.0-33.0); MEAN CORPUSCULAR HGB CONC 31.6 g/dl (32.0-36.5); MEAN CORPUSCULAR VOLUME 83.2 fl (80.0-96.0); MONO # 0.7 10^3/uL (0.0-0.8); MONO % 6.8 % (2.0-8.0); NEUTROPHILS # 6.4 10^3/uL (1.5-8.5); NEUTROPHILS % 58.8 % (36.0-66.0); PLATELET COUNT, AUTOMATED 341 10^3/uL (150-450); RED BLOOD COUNT 5.13 10^6/uL (4.00-5.40); WHITE BLOOD COUNT 10.8 10^3/uL (4.0-10.0)
[2022-02-23 16:49] LABS: ALBUMIN 3.8 GM/DL (3.2-5.2); ALT/SGPT 32 U/L (12-78); BILIRUBIN,DIRECT 0.1 MG/DL (0.0-0.2); BILIRUBIN,TOTAL 0.4 MG/DL (0.2-1.0); BLOOD UREA NITROGEN 16 MG/DL (7-18); CALCIUM LEVEL 9.5 MG/DL (8.5-10.1); CARBON DIOXIDE LEVEL 29 MEQ/L (21-32); CHLORIDE LEVEL 105 MEQ/L (98-107); CREATININE FOR GFR 0.82 MG/DL (0.55-1.30); ETHYL ALCOHOL (ETHANOL) < 0.003 % (0.000-0.010); GLOMERULAR FILTRATION RATE > 60.0 (>60); GLUCOSE, FASTING 95 MG/DL (70-100); POTASSIUM SERUM 4.2 MEQ/L (3.5-5.1); SODIUM LEVEL 138 MEQ/L (136-145)
[2022-02-23 16:50] LABS: ACETAMINOPHEN LEVEL < 2.0 UG/ML (10.0-30.0); SALICYLATE LEVEL 1.7 MG/DL (5.0-30.0)
[2022-02-23 17:12] LABS: RSV AMPLIFICATION NEGATIVE (NEGATIVE)
[2022-02-23] MEDS ORDERED: HOME MED LIST COMPLETE! XX SCH (17:55)
[2022-02-23] MEDS: PANTOPRAZOLE 40MG VIAL IV SCH (19:00)
[2022-02-23] MEDS: NS 1,000 ML IV SCH ×2 (19:34→22:30)
[2022-02-23] MEDS: ENOXAPARIN 40MG/0.4ML SYRINGE (J1650 PER 10MG) SC SCH (20:52)
[2022-02-23 22:52] LABS: AMPHETAMINES LEVEL URINE NEGATIVE (NEGATIVE); BARBITURATES URINE NEGATIVE (NEGATIVE); BENZODIAZEPINES URINE NEGATIVE (NEGATIVE); CANNABINOIDS URINE NEGATIVE (NEGATIVE); COCAINE METABOLITE URINE NEGATIVE (NEGATIVE); METHADONE URINE NEGATIVE (NEGATIVE); OPIATES URINE NEGATIVE (NEGATIVE); PHENCYCLIDINE URINE NEGATIVE (NEGATIVE)
[2022-02-24] VITALS (18 sets, daily range): BP systolic 122–131; BP diastolic 68–82; O2SAT 94–97
[2022-02-24 06:51] LABS: HEMATOCRIT 41.3 % (36.0-47.0); MEAN CORPUSCULAR HEMOGLOBIN 25.9 pg (27.0-33.0); MEAN CORPUSCULAR HGB CONC 31.5 g/dl (32.0-36.5); MEAN CORPUSCULAR VOLUME 82.4 fl (80.0-96.0); PLATELET COUNT, AUTOMATED 316 10^3/uL (150-450); RED BLOOD COUNT 5.01 10^6/uL (4.00-5.40); WHITE BLOOD COUNT 11.5 10^3/uL (4.0-10.0)
[2022-02-24 07:27] LABS: ALBUMIN 3.4 GM/DL (3.2-5.2); ALT/SGPT 29 U/L (12-78); BILIRUBIN,TOTAL 0.5 MG/DL (0.2-1.0); BLOOD UREA NITROGEN 11 MG/DL (7-18); CALCIUM LEVEL 9.1 MG/DL (8.5-10.1); CARBON DIOXIDE LEVEL 29 MEQ/L (21-32); CHLORIDE LEVEL 104 MEQ/L (98-107); CREATININE FOR GFR 0.77 MG/DL (0.55-1.30); GLOMERULAR FILTRATION RATE > 60.0 (>60); GLUCOSE, FASTING 108 MG/DL (70-100); MAGNESIUM LEVEL 2.5 MG/DL (1.8-2.4); POTASSIUM SERUM 4.2 MEQ/L (3.5-5.1); SODIUM LEVEL 136 MEQ/L (136-145); TOTAL PROTEIN 7.8 GM/DL (6.4-8.2)
[2022-02-24 08:05] LABS: ANISOCYTOSIS 1+; ATYPICAL LYMPH 1 % (0-5); BASOPHILS 1 % (0-1); EOSINOPHILS 1 % (0-3); LYMPHOCYTES 38 % (16-44); MONOCYTES 9 % (0-5); NEUTROPHILS 50 % (28-66); PLATELET ESTIMATE NORMAL (NORMAL)
[2022-02-24] MEDS: NS 1,000 ML IV SCH ×2 (08:14→18:15)
[2022-02-24] MEDS: PANTOPRAZOLE 40MG VIAL IV SCH (18:15)
[2022-02-24] MEDS: ENOXAPARIN 40MG/0.4ML SYRINGE (J1650 PER 10MG) SC SCH (20:16)
[2022-02-25] VITALS (9 sets, daily range): BP systolic 111–122; BP diastolic 58–71; O2SAT 94–96
[2022-02-25] MEDS: NS 1,000 ML IV SCH (04:03)
[2022-02-25 06:25] LABS: BASO % 0.3 % (0.0-1.0); EOS # 0.1 10^3/uL (0.0-0.5); EOS % 1.1 % (0.0-3.0); HEMATOCRIT 38.6 % (36.0-47.0); HEMOGLOBIN 12.2 g/dl (12.0-15.5); LYMPH % 36.1 % (24.0-44.0); MEAN CORPUSCULAR HGB CONC 31.6 g/dl (32.0-36.5); MEAN CORPUSCULAR VOLUME 82.3 fl (80.0-96.0); MONO # 1.1 10^3/uL (0.0-0.8); MONO % 9.5 % (2.0-8.0); NEUTROPHILS # 5.8 10^3/uL (1.5-8.5); NEUTROPHILS % 52.7 % (36.0-66.0); PLATELET COUNT, AUTOMATED 306 10^3/uL (150-450); RED BLOOD COUNT 4.69 10^6/uL (4.00-5.40)
[2022-02-25 06:47] LABS: ALT/SGPT 25 U/L (12-78); BILIRUBIN,TOTAL 0.4 MG/DL (0.2-1.0); BLOOD UREA NITROGEN 14 MG/DL (7-18); CALCIUM LEVEL 8.7 MG/DL (8.5-10.1); CARBON DIOXIDE LEVEL 30 MEQ/L (21-32); CHLORIDE LEVEL 107 MEQ/L (98-107); CREATININE FOR GFR 0.68 MG/DL (0.55-1.30); GLOMERULAR FILTRATION RATE > 60.0 (>60); GLUCOSE, FASTING 96 MG/DL (70-100); MAGNESIUM LEVEL 2.4 MG/DL (1.8-2.4); POTASSIUM SERUM 3.8 MEQ/L (3.5-5.1); SODIUM LEVEL 142 MEQ/L (136-145); TOTAL PROTEIN 6.9 GM/DL (6.4-8.2)
[2022-02-25] MEDS: PANTOPRAZOLE 40MG VIAL IV SCH (18:45)
[2022-02-25] MEDS: ENOXAPARIN 40MG/0.4ML SYRINGE (J1650 PER 10MG) SC SCH (20:51)
== END 2022-02-25 22:07 | DRG 812 ==
LOC: M ED 15:46 → M ED INP 17:49 → M PCU 22:20
PROVIDERS: ADMIT Internal Medicine; ATTEND Internal Medicine
DX: T46.5X2A Poisoning by other antihypertensive drugs, intentional self-harm, initial encounter (principal); Z68.44 Body mass index [BMI] 60.0-69.9, adult; K76.0 Fatty (change of) liver, not elsewhere classified; E66.01 Morbid (severe) obesity due to excess calories; D72.829 Elevated white blood cell count, unspecified; F43.10 Post-traumatic stress disorder, unspecified; I10 Essential (primary) hypertension; J45.909 Unspecified asthma, uncomplicated; T42.1X2A Poisoning by iminostilbenes, intentional self-harm, initial encounter; T43.212A Poisoning by selective serotonin and norepinephrine reuptake inhibitors, intentional self-harm, initial encounter; T44.6X2A Poisoning by alpha-adrenoreceptor antagonists, intentional self-harm, initial encounter; T50.2X2A Poisoning by carbonic-anhydrase inhibitors, benzothiadiazides and other diuretics, intentional self-harm, initial encounter; Z79.899 Other long term (current) drug therapy; Z91.14 Patient's other noncompliance with medication regimen; F60.3 Borderline personality disorder

== ENCOUNTER 2022-02-25 17:35 | Inpatient (IN) | payer MEDICAID, OTHER ==
[~2022-02-25] VITALS: Ht 160 cm; Wt 155.4 kg
[~2022-02-25 17:35] MED LIST changes: +REXU1TAB3 PO
[2022-02-25] MEDS ORDERED: MOM 30ML SUSPENSION UDC PO PRN (17:55)
[2022-02-25] MEDS ORDERED: MAALOX 30 ML SUSP *UDC PO PRN (17:55)
[2022-02-25] MEDS ORDERED: traZODone 50 MG TAB PO PRN (17:55)
[2022-02-25] MEDS ORDERED: ACETAMINOPHEN TAB 650MG DOSE (2X325MG) PO PRN (17:55)
[2022-02-25 22:07] VITALS: BP 111/67
[2022-02-25] MEDS ORDERED: HOME MED LIST COMPLETE! XX SCH (22:30)
[2022-02-26] MEDS ORDERED: QUEtiapine FUMARATE 50MG TAB PO PRN
[2022-02-26 06:42] VITALS: BP 124/59
[2022-02-26] MEDS ORDERED: ALBUTEROL 90 MCG/ACT 8GM HFA INHALER INH PRN (10:15)
[2022-02-26] MEDS: hydroCHLOROthiazide 12.5 MG CAPSULE PO SCH (11:44)
[2022-02-26 18:52] VITALS: BP 120/82
[2022-02-27 06:04] VITALS: BP 108/64
[2022-02-27] MEDS: hydroCHLOROthiazide 12.5 MG CAPSULE PO SCH (09:48)
[2022-02-27 17:26] VITALS: BP 125/69
[2022-02-28 06:55] VITALS: BP 123/82
[2022-02-28] MEDS ORDERED: OLANZapine ORAL DISINTEGRATING TAB 5MG PO PRN (07:35)
[2022-02-28] MEDS: hydroCHLOROthiazide 12.5 MG CAPSULE PO SCH (08:23)
[2022-02-28 16:22] VITALS: BP 126/70
[2022-03-01 06:27] VITALS: BP 128/89
[2022-03-01] MEDS ORDERED: ARIPiprazole MONOHYDRATE 400 MG INJ (ABILIFY) IM SCH (09:00)
[2022-03-01] MEDS: hydroCHLOROthiazide 12.5 MG CAPSULE PO SCH (09:42)
[2022-03-01 16:28] VITALS: BP 135/74
[2022-03-02 07:06] VITALS: BP 148/77
[2022-03-02] MEDS: hydroCHLOROthiazide 12.5 MG CAPSULE PO SCH (09:03)
[2022-03-02] MEDS ORDERED: ABIL400I IM (10:12)
== END 2022-03-02 12:59 | disposition home or self-care (01) | DRG 753 ==
LOC: M PSY 22:00
PROVIDERS: ADMIT Student in an Organized Health Care Education/Training Program; ATTEND Student in an Organized Health Care Education/Training Program
DX: F31.9 Bipolar disorder, unspecified (principal); Z91.14 Patient's other noncompliance with medication regimen; F43.10 Post-traumatic stress disorder, unspecified; F60.3 Borderline personality disorder

== ENCOUNTER 2022-03-16 17:30 | Inpatient (IN) | payer MEDICAID, OTHER ==
[~2022-03-16] VITALS: Ht 160 cm; Wt 159.1 kg
[~2022-03-16 17:30] MED LIST changes: +ABIL400I IM
[2022-03-16 18:57] LABS: HEMATOCRIT 41.5 % (36.0-47.0); HEMOGLOBIN 13.1 g/dl (12.0-15.5); MEAN CORPUSCULAR HEMOGLOBIN 26.1 pg (27.0-33.0); MEAN CORPUSCULAR HGB CONC 31.6 g/dl (32.0-36.5); MEAN CORPUSCULAR VOLUME 82.8 fl (80.0-96.0); PLATELET COUNT, AUTOMATED 330 10^3/uL (150-450); RED BLOOD COUNT 5.01 10^6/uL (4.00-5.40); WHITE BLOOD COUNT 13.3 10^3/uL (4.0-10.0)
[2022-03-16 19:08] LABS: AMPHETAMINES LEVEL URINE NEGATIVE (NEGATIVE); BARBITURATES URINE NEGATIVE (NEGATIVE); BENZODIAZEPINES URINE NEGATIVE (NEGATIVE); CANNABINOIDS URINE NEGATIVE (NEGATIVE); COCAINE METABOLITE URINE NEGATIVE (NEGATIVE); METHADONE URINE NEGATIVE (NEGATIVE); OPIATES URINE NEGATIVE (NEGATIVE); PHENCYCLIDINE URINE NEGATIVE (NEGATIVE)
[2022-03-16 19:10] LABS: HCG, SERUM QUALITATIVE NEGATIVE (NEGATIVE)
[2022-03-16 19:15] LABS: RSV AMPLIFICATION NEGATIVE (NEGATIVE)
[2022-03-16 19:17] LABS: ACETAMINOPHEN LEVEL < 2.0 UG/ML (10.0-30.0); ALBUMIN 3.6 GM/DL (3.2-5.2); ALT/SGPT 31 U/L (12-78); BILIRUBIN,DIRECT 0.1 MG/DL (0.0-0.2); BILIRUBIN,TOTAL 0.3 MG/DL (0.2-1.0); BLOOD UREA NITROGEN 17 MG/DL (7-18); CALCIUM LEVEL 9.1 MG/DL (8.5-10.1); CARBON DIOXIDE LEVEL 27 MEQ/L (21-32); CHLORIDE LEVEL 108 MEQ/L (98-107); CREATININE FOR GFR 0.75 MG/DL (0.55-1.30); GLOMERULAR FILTRATION RATE > 60.0 (>60); GLUCOSE, FASTING 100 MG/DL (70-100); POTASSIUM SERUM 4.1 MEQ/L (3.5-5.1); SODIUM LEVEL 140 MEQ/L (136-145); THYROID STIMULATING HORMONE 0.919 uIU/ML (0.358-3.740); TOTAL PROTEIN 7.4 GM/DL (6.4-8.2)
[2022-03-16 19:18] LABS: ETHYL ALCOHOL (ETHANOL) < 0.003 % (0.000-0.010)
[2022-03-16] MEDS ORDERED: ABIL1INJ2 IM (19:42)
[2022-03-16] MEDS ORDERED: HOME MED LIST COMPLETE! XX SCH (19:45)
[2022-03-16] MEDS ORDERED: QUEtiapine FUMARATE 50MG TAB PO SCH (21:00)
[2022-03-16] MEDS ORDERED: MOM 30ML SUSPENSION UDC PO PRN (23:35)
[2022-03-16] MEDS ORDERED: MAALOX 30 ML SUSP *UDC PO PRN (23:35)
[2022-03-16] MEDS ORDERED: ALBUTEROL 90 MCG/ACT 8GM HFA INHALER INH PRN (23:35)
[2022-03-17 03:03] VITALS: BP 123/65
[2022-03-17] MEDS ORDERED: hydroCHLOROthiazide 12.5 MG CAPSULE PO ONE (09:00)
[2022-03-17] MEDS: hydroCHLOROthiazide 12.5 MG CAPSULE PO SCH (09:00)
[2022-03-17 17:58] VITALS: BP 138/78
[2022-03-17] MEDS: QUEtiapine FUMARATE 50MG TAB PO PRN (21:19)
[2022-03-18 07:00] VITALS: BP 113/58
[2022-03-18] MEDS: **PENDING PPD ENTRY XX SCH (09:00)
[2022-03-18] MEDS: hydroCHLOROthiazide 12.5 MG CAPSULE PO SCH (09:11)
[2022-03-18] MEDS ORDERED: TUBERCULIN PPD 5 UNITS/0.1 ML ID ONE (12:25)
[2022-03-18 16:39] VITALS: BP 128/60
[2022-03-18] MEDS: QUEtiapine FUMARATE 50MG TAB PO PRN (20:09)
[2022-03-19 06:22] VITALS: BP 133/69
[2022-03-19] MEDS: **PENDING PPD ENTRY XX SCH (09:00)
[2022-03-19] MEDS: hydroCHLOROthiazide 12.5 MG CAPSULE PO SCH (10:02)
[2022-03-19 18:07] VITALS: BP 142/82
[2022-03-19] MEDS: QUEtiapine FUMARATE 50MG TAB PO PRN (22:24)
[2022-03-20 06:28] VITALS: BP 118/57
[2022-03-20] MEDS: VENLAFAXINE **XR** 37.5 MG CAPSULE PO SCH (09:53)
[2022-03-20] MEDS: hydroCHLOROthiazide 12.5 MG CAPSULE PO SCH (09:53)
[2022-03-20] MEDS ORDERED: PPD DOCUMENTATION ENTRY MISC XX SCH (10:00)
[2022-03-20] MEDS ORDERED: TUBERCULIN PPD 5 UNITS/0.1 ML ID ONE (11:00)
[2022-03-20 18:27] VITALS: BP 136/78
[2022-03-20] MEDS: QUEtiapine FUMARATE 50MG TAB PO PRN (21:24)
[2022-03-21 07:03] VITALS: BP 138/63
[2022-03-21] MEDS: VENLAFAXINE **XR** 37.5 MG CAPSULE PO SCH (08:53)
[2022-03-21] MEDS: hydroCHLOROthiazide 12.5 MG CAPSULE PO SCH (08:53)
[2022-03-21 18:05] VITALS: BP 141/84
[2022-03-22] MEDS ORDERED: HALOPERIDOL 5MG/ML VIAL (J1630 PER 1) IM STA (01:14)
[2022-03-22] MEDS ORDERED: diphenhydrAMINE 50MG/ML VIAL (J1200) IM STA (01:14)
[2022-03-22] MEDS ORDERED: LORazepam 2 MG/ML VIAL IM STA (01:14)
[2022-03-22 06:42] VITALS: BP 123/65
[2022-03-22] MEDS: hydroCHLOROthiazide 12.5 MG CAPSULE PO SCH (09:47)
[2022-03-22] MEDS: VENLAFAXINE **XR** 37.5 MG CAPSULE PO SCH (09:47)
[2022-03-22] MEDS ORDERED: PPD DOCUMENTATION ENTRY MISC XX ONE (11:00)
[2022-03-22 18:09] VITALS: BP 123/59
[2022-03-23 06:45] VITALS: BP 117/59
[2022-03-23] MEDS: hydroCHLOROthiazide 12.5 MG CAPSULE PO SCH (09:49)
[2022-03-23] MEDS: VENLAFAXINE **XR** 37.5 MG CAPSULE PO SCH (09:49)
[2022-03-23 16:06] VITALS: BP 134/86
[2022-03-23] MEDS: ACETAMINOPHEN TAB 650MG DOSE (2X325MG) PO PRN (16:30)
[2022-03-23] MEDS: QUEtiapine FUMARATE 50MG TAB PO PRN (20:42)
[2022-03-24 06:11] VITALS: BP 115/55
[2022-03-24] MEDS: hydroCHLOROthiazide 12.5 MG CAPSULE PO SCH (09:35)
[2022-03-24] MEDS: VENLAFAXINE **XR** 37.5 MG CAPSULE PO SCH (09:35)
[2022-03-24 17:09] VITALS: BP 132/67
[2022-03-24] MEDS: OLANZapine ORAL DISINTEGRATING TAB 5MG PO PRN (17:09)
[2022-03-25 06:23] VITALS: BP 128/78
[2022-03-25] MEDS: hydroCHLOROthiazide 12.5 MG CAPSULE PO SCH (10:02)
[2022-03-25] MEDS: VENLAFAXINE **XR** 37.5 MG CAPSULE PO SCH (10:02)
[2022-03-25 17:19] VITALS: BP 130/74
[2022-03-25] MEDS: QUEtiapine FUMARATE 50MG TAB PO PRN (21:16)
[2022-03-26 06:42] VITALS: BP 100/51
[2022-03-26] MEDS: VENLAFAXINE **XR** 37.5 MG CAPSULE PO SCH (09:14)
[2022-03-26] MEDS: hydroCHLOROthiazide 12.5 MG CAPSULE PO SCH (09:14)
[2022-03-26] MEDS: ACETAMINOPHEN TAB 650MG DOSE (2X325MG) PO PRN (13:26)
[2022-03-26 18:00] VITALS: BP 124/67
[2022-03-26] MEDS: CIPRODEX OTIC SUSP 7.5ML AD SCH (20:47)
[2022-03-26] MEDS: AUGMENTIN 875 MG TAB PO SCH (20:47)
[2022-03-26] MEDS: QUEtiapine FUMARATE 50MG TAB PO PRN (20:49)
[2022-03-27 06:00] VITALS: BP 120/63
[2022-03-27] MEDS: hydroCHLOROthiazide 12.5 MG CAPSULE PO SCH (11:28)
[2022-03-27] MEDS: CIPRODEX OTIC SUSP 7.5ML AD SCH ×2 (11:28→20:58)
[2022-03-27] MEDS: VENLAFAXINE **XR** 37.5 MG CAPSULE PO SCH (11:29)
[2022-03-27] MEDS: AUGMENTIN 875 MG TAB PO SCH ×2 (11:29→20:58)
[2022-03-27 18:00] VITALS: BP 160/67
[2022-03-28 06:41] VITALS: BP 126/59
[2022-03-28] MEDS: hydroCHLOROthiazide 12.5 MG CAPSULE PO SCH (09:12)
[2022-03-28] MEDS: VENLAFAXINE **XR** 37.5 MG CAPSULE PO SCH (09:12)
[2022-03-28] MEDS: CIPRODEX OTIC SUSP 7.5ML AD SCH ×2 (09:13→20:12)
[2022-03-28] MEDS: AUGMENTIN 875 MG TAB PO SCH ×2 (09:15→20:12)
[2022-03-28 15:57] VITALS: BP 130/60
[2022-03-28] MEDS: ACETAMINOPHEN TAB 650MG DOSE (2X325MG) PO PRN (18:14)
[2022-03-28] MEDS: BENZOCAINE 10% 9GM TUBE (ANBESOL) TOP PRN (19:14)
[2022-03-29] MEDS ORDERED: ONDANSETRON 4MG ORAL DISINTEGRATING TAB PO PRN (02:35)
[2022-03-29 06:00] VITALS: BP 142/89
[2022-03-29] MEDS: hydroCHLOROthiazide 12.5 MG CAPSULE PO SCH (10:37)
[2022-03-29] MEDS: AUGMENTIN 875 MG TAB PO SCH ×2 (10:37→21:08)
[2022-03-29] MEDS: VENLAFAXINE **XR** 37.5 MG CAPSULE PO SCH (10:37)
[2022-03-29] MEDS: CIPRODEX OTIC SUSP 7.5ML AD SCH ×2 (10:38→21:08)
[2022-03-29 16:57] VITALS: BP 129/66
[2022-03-30] MEDS: QUEtiapine FUMARATE 50MG TAB PO PRN (01:14)
[2022-03-30 06:21] VITALS: BP 116/55
[2022-03-30] MEDS: VENLAFAXINE **XR** 37.5 MG CAPSULE PO SCH (09:39)
[2022-03-30] MEDS: AUGMENTIN 875 MG TAB PO SCH ×2 (09:39→21:12)
[2022-03-30] MEDS: hydroCHLOROthiazide 12.5 MG CAPSULE PO SCH (09:39)
[2022-03-30] MEDS: CIPRODEX OTIC SUSP 7.5ML AD SCH ×2 (09:39→21:12)
[2022-03-30 19:18] VITALS: BP 154/82
[2022-03-30] MEDS ORDERED: diphenhydrAMINE 50MG/ML VIAL (J1200) IM STA (22:44)
[2022-03-30] MEDS ORDERED: LORazepam 2 MG/ML VIAL IM STA (22:44)
[2022-03-30] MEDS ORDERED: HALOPERIDOL 5MG/ML VIAL (J1630 PER 1) IM STA (22:44)
[2022-03-31 00:15] VITALS: BP 107/66
[2022-03-31 07:09] VITALS: BP 138/78
[2022-03-31] MEDS: CIPRODEX OTIC SUSP 7.5ML AD SCH ×2 (09:00→21:57)
[2022-03-31] MEDS ORDERED: ARIPiprazole MONOHYDRATE 400 MG INJ (ABILIFY)(FREE PSY INPT ONLY) IM ONE (10:00)
[2022-03-31] MEDS: VENLAFAXINE **XR** 75MG CAPSULE PO SCH (14:51)
[2022-03-31] MEDS: hydroCHLOROthiazide 12.5 MG CAPSULE PO SCH (14:51)
[2022-03-31] MEDS: AUGMENTIN 875 MG TAB PO SCH ×2 (14:52→21:56)
[2022-03-31 19:18] VITALS: BP 131/64
[2022-04-01 06:46] VITALS: BP 116/62
[2022-04-01] MEDS: CIPRODEX OTIC SUSP 7.5ML AD SCH ×2 (11:05→21:08)
[2022-04-01] MEDS: VENLAFAXINE **XR** 75MG CAPSULE PO SCH (11:05)
[2022-04-01] MEDS: AUGMENTIN 875 MG TAB PO SCH ×2 (11:06→21:08)
[2022-04-01] MEDS: hydroCHLOROthiazide 12.5 MG CAPSULE PO SCH (11:06)
[2022-04-01 17:54] VITALS: BP 130/77
[2022-04-01] MEDS: BENZOCAINE 10% 9GM TUBE (ANBESOL) TOP PRN (21:08)
[2022-04-02 06:20] VITALS: BP 129/68
[2022-04-02] MEDS: hydroCHLOROthiazide 12.5 MG CAPSULE PO SCH (08:30)
[2022-04-02] MEDS: VENLAFAXINE **XR** 75MG CAPSULE PO SCH (08:30)
[2022-04-02] MEDS: AUGMENTIN 875 MG TAB PO SCH ×2 (08:30→22:54)
[2022-04-02] MEDS: CIPRODEX OTIC SUSP 7.5ML AD SCH (08:31)
[2022-04-02 18:09] VITALS: BP 134/72
[2022-04-03 06:36] VITALS: BP 139/86
[2022-04-03] MEDS: AUGMENTIN 875 MG TAB PO SCH ×2 (09:54→21:18)
[2022-04-03] MEDS: VENLAFAXINE **XR** 75MG CAPSULE PO SCH (09:54)
[2022-04-03] MEDS: hydroCHLOROthiazide 12.5 MG CAPSULE PO SCH (12:41)
[2022-04-03] MEDS: OLANZapine ORAL DISINTEGRATING TAB 5MG PO PRN (16:59)
[2022-04-03 18:00] VITALS: BP 137/70
[2022-04-04 06:00] VITALS: BP 117/80
[2022-04-04] MEDS: VENLAFAXINE **XR** 75MG CAPSULE PO SCH (08:19)
[2022-04-04] MEDS: hydroCHLOROthiazide 12.5 MG CAPSULE PO SCH (08:20)
[2022-04-04] MEDS: AUGMENTIN 875 MG TAB PO SCH ×2 (08:20→21:22)
[2022-04-04] MEDS: BENZOCAINE 10% 9GM TUBE (ANBESOL) TOP PRN (17:37)
[2022-04-04 18:00] VITALS: BP 104/55
[2022-04-04] MEDS ORDERED: diphenhydrAMINE 25MG CAP PO ONE (21:40)
[2022-04-04] MEDS ORDERED: KETOROLAC TROMETHAMINE 10 MG TAB PO ONE (23:00)
[2022-04-05 06:41] VITALS: BP 120/59
[2022-04-05] MEDS: VENLAFAXINE **XR** 75MG CAPSULE PO SCH (09:17)
[2022-04-05] MEDS: hydroCHLOROthiazide 12.5 MG CAPSULE PO SCH (09:17)
[2022-04-05] MEDS: AUGMENTIN 875 MG TAB PO SCH ×2 (09:17→20:34)
[2022-04-06 06:00] VITALS: BP 110/65
[2022-04-06] MEDS: VENLAFAXINE **XR** 75MG CAPSULE PO SCH (09:07)
[2022-04-06] MEDS: hydroCHLOROthiazide 12.5 MG CAPSULE PO SCH (09:07)
[2022-04-06] MEDS: OLANZapine ORAL DISINTEGRATING TAB 5MG PO PRN ×2 (10:46→21:14)
[2022-04-06 18:00] VITALS: BP 134/75
[2022-04-06] MEDS: ACETAMINOPHEN TAB 650MG DOSE (2X325MG) PO PRN (18:07)
[2022-04-06] MEDS: BENZOCAINE 10% 9GM TUBE (ANBESOL) TOP PRN (18:07)
[2022-04-06] MEDS: QUEtiapine FUMARATE 50MG TAB PO PRN (20:24)
[2022-04-07 06:20] VITALS: BP 130/90
[2022-04-07] MEDS ORDERED: Benzocaine Gel TOP (08:12)
[2022-04-07] MEDS ORDERED: ABIL1INJ2 IM (08:12)
[2022-04-07] MEDS ORDERED: VENL75CA47 PO (08:12)
[2022-04-07] MEDS: hydroCHLOROthiazide 12.5 MG CAPSULE PO SCH (08:35)
[2022-04-07] MEDS: VENLAFAXINE **XR** 75MG CAPSULE PO SCH (08:35)
== END 2022-04-07 12:54 | disposition home or self-care (01) | DRG 751 ==
LOC: M ED 17:30 → M ED INP 23:34 → M PSY 03-17 03:03
PROVIDERS: ADMIT Student in an Organized Health Care Education/Training Program; ATTEND Student in an Organized Health Care Education/Training Program
DX: F33.1 Major depressive disorder, recurrent, moderate (principal); E66.01 Morbid (severe) obesity due to excess calories; K76.0 Fatty (change of) liver, not elsewhere classified; F43.10 Post-traumatic stress disorder, unspecified; F60.3 Borderline personality disorder; F31.9 Bipolar disorder, unspecified; J45.909 Unspecified asthma, uncomplicated; I10 Essential (primary) hypertension; F41.9 Anxiety disorder, unspecified; Z79.899 Other long term (current) drug therapy; H66.91 Otitis media, unspecified, right ear

== ENCOUNTER 2022-04-25 18:40 | Emergency (ER) | payer MEDICAID, OTHER ==
[~2022-04-25 18:40] MED LIST changes: +ABIL1INJ2 IM; +Benzocaine Gel TOP
[2022-04-25 21:23] LABS: AMPHETAMINES LEVEL URINE NEGATIVE (NEGATIVE); BARBITURATES URINE NEGATIVE (NEGATIVE); BENZODIAZEPINES URINE NEGATIVE (NEGATIVE); CANNABINOIDS URINE NEGATIVE (NEGATIVE); COCAINE METABOLITE URINE NEGATIVE (NEGATIVE); METHADONE URINE NEGATIVE (NEGATIVE); OPIATES URINE NEGATIVE (NEGATIVE); PHENCYCLIDINE URINE NEGATIVE (NEGATIVE)
[2022-04-25 21:26] VITALS: BP 122/77
== END 2022-04-25 21:39 | disposition home or self-care (01) ==
LOC: M ED 18:40
DX: S51.812A Laceration without foreign body of left forearm, initial encounter (principal); X78.9XXA Intentional self-harm by unspecified sharp object, initial encounter; Y92.89 Other specified places as the place of occurrence of the external cause; Y93.89 Activity, other specified; Y99.8 Other external cause status; F31.9 Bipolar disorder, unspecified; Z79.899 Other long term (current) drug therapy; Z91.51 Personal history of suicidal behavior

== ENCOUNTER 2022-05-01 18:20 | Emergency (ER) | payer MEDICAID, OTHER ==
[~2022-05-01] VITALS: Ht 160 cm; Wt 163.6 kg
[2022-05-01 20:58] LABS: HEMATOCRIT 36.9 % (36.0-47.0); HEMOGLOBIN 11.8 g/dl (12.0-15.5); MEAN CORPUSCULAR HEMOGLOBIN 26.6 pg (27.0-33.0); MEAN CORPUSCULAR VOLUME 83.1 fl (80.0-96.0); PLATELET COUNT, AUTOMATED 310 10^3/uL (150-450); RED BLOOD COUNT 4.44 10^6/uL (4.00-5.40)
[2022-05-01 21:31] LABS: RSV AMPLIFICATION NEGATIVE (NEGATIVE)
[2022-05-01] MEDS ORDERED: HYDR12.55 PO (22:41)
[2022-05-01] MEDS ORDERED: HOME MED LIST COMPLETE! XX SCH (22:45)
[2022-05-01 23:13] LABS: ACETAMINOPHEN LEVEL < 2.0 UG/ML (10.0-30.0); ALBUMIN 3.7 GM/DL (3.2-5.2); ALT/SGPT 34 U/L (12-78); BILIRUBIN,DIRECT < 0.1 MG/DL (0.0-0.2); BILIRUBIN,TOTAL 0.4 MG/DL (0.2-1.0); BLOOD UREA NITROGEN 15 MG/DL (7-18); CALCIUM LEVEL 9.9 MG/DL (8.5-10.1); CARBON DIOXIDE LEVEL 26 MEQ/L (21-32); CHLORIDE LEVEL 106 MEQ/L (98-107); ETHYL ALCOHOL (ETHANOL) < 0.003 % (0.000-0.010); GLOMERULAR FILTRATION RATE > 60.0 (>60); GLUCOSE, FASTING 91 MG/DL (70-100); POTASSIUM SERUM 4.5 MEQ/L (3.5-5.1); SALICYLATE LEVEL < 1.7 MG/DL (5.0-30.0); SODIUM LEVEL 141 MEQ/L (136-145); THYROID STIMULATING HORMONE 0.688 uIU/ML (0.358-3.740); TOTAL PROTEIN 8.3 GM/DL (6.4-8.2)
[2022-05-01 23:13] LABS: AMPHETAMINES LEVEL URINE NEGATIVE (NEGATIVE); BARBITURATES URINE NEGATIVE (NEGATIVE); BENZODIAZEPINES URINE NEGATIVE (NEGATIVE); CANNABINOIDS URINE NEGATIVE (NEGATIVE); COCAINE METABOLITE URINE NEGATIVE (NEGATIVE); METHADONE URINE NEGATIVE (NEGATIVE); OPIATES URINE NEGATIVE (NEGATIVE); PHENCYCLIDINE URINE NEGATIVE (NEGATIVE)
[2022-05-01 23:22] LABS: HCG, SERUM QUALITATIVE NEGATIVE (NEGATIVE)
[2022-05-02 06:23] VITALS: BP 149/65
== END 2022-05-02 12:00 | disposition home or self-care (01) ==
LOC: M ED 18:20
DX: R45.851 Suicidal ideations (principal); F32.A Depression, unspecified; I10 Essential (primary) hypertension; J45.909 Unspecified asthma, uncomplicated; F41.9 Anxiety disorder, unspecified; K76.0 Fatty (change of) liver, not elsewhere classified; E66.9 Obesity, unspecified; Z79.811 Long term (current) use of aromatase inhibitors; Z79.899 Other long term (current) drug therapy

== ENCOUNTER 2022-05-24 01:35 | Inpatient (IN) | payer MEDICAID, OTHER ==
[~2022-05-24] VITALS: Ht 160 cm; Wt 155.4 kg
[2022-05-24 02:24] LABS: HEMATOCRIT 41.7 % (36.0-47.0); MEAN CORPUSCULAR HEMOGLOBIN 25.8 pg (27.0-33.0); MEAN CORPUSCULAR HGB CONC 31.2 g/dl (32.0-36.5); MEAN CORPUSCULAR VOLUME 82.9 fl (80.0-96.0); PLATELET COUNT, AUTOMATED 335 10^3/uL (150-450); RED BLOOD COUNT 5.03 10^6/uL (4.00-5.40); WHITE BLOOD COUNT 12.1 10^3/uL (4.0-10.0)
[2022-05-24 02:47] LABS: RSV AMPLIFICATION NEGATIVE (NEGATIVE)
[2022-05-24 02:57] LABS: HCG, SERUM QUALITATIVE NEGATIVE (NEGATIVE)
[2022-05-24 02:58] LABS: AMPHETAMINES LEVEL URINE NEGATIVE (NEGATIVE); BARBITURATES URINE NEGATIVE (NEGATIVE); BENZODIAZEPINES URINE NEGATIVE (NEGATIVE); CANNABINOIDS URINE NEGATIVE (NEGATIVE); COCAINE METABOLITE URINE NEGATIVE (NEGATIVE); METHADONE URINE NEGATIVE (NEGATIVE); OPIATES URINE NEGATIVE (NEGATIVE); PHENCYCLIDINE URINE NEGATIVE (NEGATIVE)
[2022-05-24 02:59] LABS: ACETAMINOPHEN LEVEL < 2.0 UG/ML (10.0-30.0); ALBUMIN 3.3 GM/DL (3.2-5.2); ALT/SGPT 33 U/L (12-78); BILIRUBIN,DIRECT < 0.1 MG/DL (0.0-0.2); BILIRUBIN,TOTAL 0.2 MG/DL (0.2-1.0); BLOOD UREA NITROGEN 14 MG/DL (7-18); CALCIUM LEVEL 9.2 MG/DL (8.5-10.1); CARBON DIOXIDE LEVEL 25 MEQ/L (21-32); CHLORIDE LEVEL 108 MEQ/L (98-107); CREATININE FOR GFR 0.62 MG/DL (0.55-1.30); ETHYL ALCOHOL (ETHANOL) 0.004 % (0.000-0.010); GLOMERULAR FILTRATION RATE > 60.0 (>60); GLUCOSE, FASTING 196 MG/DL (70-100); POTASSIUM SERUM 4.4 MEQ/L (3.5-5.1); SALICYLATE LEVEL < 1.7 MG/DL (5.0-30.0); SODIUM LEVEL 141 MEQ/L (136-145); TOTAL PROTEIN 7.4 GM/DL (6.4-8.2)
[2022-05-24] MEDS ORDERED: ABIL1INJ2 IM (20:36)
[2022-05-24] MEDS ORDERED: HYDR12.55 PO (20:36)
[2022-05-24] MEDS ORDERED: HOME MED LIST COMPLETE! XX SCH (20:40)
[2022-05-25] MEDS ORDERED: hydroCHLOROthiazide 12.5 MG CAPSULE PO SCH (09:00)
[2022-05-25] MEDS ORDERED: OLANZapine ORAL DISINTEGRATING TAB 5MG PO PRN (14:00)
[2022-05-25] MEDS ORDERED: MOM 30ML SUSPENSION UDC PO PRN (14:00)
[2022-05-25] MEDS ORDERED: traZODone 50 MG TAB PO PRN (14:00)
[2022-05-25] MEDS ORDERED: diphenhydrAMINE 25MG CAP PO PRN (14:00)
[2022-05-25] MEDS ORDERED: IBUPROFEN 400MG TAB PO PRN (14:00)
[2022-05-25] MEDS ORDERED: MAALOX 30 ML SUSP *UDC PO PRN (14:00)
[2022-05-25] MEDS: NICOTINE 21MG/24HR 1 EA TRANSDERMAL TD SCH (15:06)
[2022-05-25 20:23] VITALS: BP 158/67
[2022-05-26] MEDS: hydroCHLOROthiazide 12.5 MG CAPSULE PO SCH (08:24)
[2022-05-26] MEDS: NICOTINE 21MG/24HR 1 EA TRANSDERMAL TD SCH (08:24)
[2022-05-26] MEDS: NYSTATIN CREAM 15 GM TOP SCH ×3 (13:57→23:03)
[2022-05-26 18:04] VITALS: BP 154/86
[2022-05-27] MEDS: NICOTINE 21MG/24HR 1 EA TRANSDERMAL TD SCH (09:00)
[2022-05-27] MEDS: NYSTATIN CREAM 15 GM TOP SCH ×2 (09:54→20:14)
[2022-05-27] MEDS: hydroCHLOROthiazide 12.5 MG CAPSULE PO SCH (09:54)
[2022-05-27 16:20] LABS: CHOLESTEROL RISK RATIO 4.675 (<5)
[2022-05-27 19:14] VITALS: BP 153/82
[2022-05-28 06:20] VITALS: BP 134/70
[2022-05-28] MEDS: NICOTINE 21MG/24HR 1 EA TRANSDERMAL TD SCH (08:23)
[2022-05-28] MEDS: hydroCHLOROthiazide 12.5 MG CAPSULE PO SCH (08:24)
[2022-05-28] MEDS: NYSTATIN CREAM 15 GM TOP SCH ×2 (08:25→21:00)
[2022-05-29 06:16] VITALS: BP 121/58
[2022-05-29] MEDS ORDERED: ABIL1INJ2 IM (09:23)
[2022-05-29] MEDS: NYSTATIN CREAM 15 GM TOP SCH (09:38)
[2022-05-29] MEDS: hydroCHLOROthiazide 12.5 MG CAPSULE PO SCH (10:13)
[2022-05-30] MEDS ORDERED: ABIL1INJ2 IM (18:17)
== END 2022-05-29 12:39 | disposition home or self-care (01) | DRG 753 ==
LOC: M ED 01:35 → M ED INP 05-25 13:57 → M PSY 05-25 20:12
PROVIDERS: ADMIT Student in an Organized Health Care Education/Training Program; ATTEND Student in an Organized Health Care Education/Training Program
DX: F31.9 Bipolar disorder, unspecified (principal); E66.01 Morbid (severe) obesity due to excess calories; R45.851 Suicidal ideations; K76.0 Fatty (change of) liver, not elsewhere classified; F43.10 Post-traumatic stress disorder, unspecified; F60.3 Borderline personality disorder; F60.7 Dependent personality disorder; I10 Essential (primary) hypertension; J45.909 Unspecified asthma, uncomplicated; Z62.810 Personal history of physical and sexual abuse in childhood; Z79.899 Other long term (current) drug therapy; L30.4 Erythema intertrigo; R94.31 Abnormal electrocardiogram [ECG] [EKG]

== ENCOUNTER 2022-05-30 03:33 | Inpatient (IN) | payer MEDICAID, OTHER ==
[~2022-05-30] VITALS: Ht 160 cm; Wt 167.9 kg
[2022-05-30 04:20] LABS: BASO % 0.2 % (0.0-1.0); EOS # 0.1 10^3/uL (0.0-0.5); EOS % 0.9 % (0.0-3.0); HEMOGLOBIN 11.7 g/dl (12.0-15.5); LYMPH # 4.1 10^3/uL (1.5-5.0); LYMPH % 39.3 % (24.0-44.0); MEAN CORPUSCULAR HEMOGLOBIN 25.6 pg (27.0-33.0); MEAN CORPUSCULAR HGB CONC 30.8 g/dl (32.0-36.5); MEAN CORPUSCULAR VOLUME 83.2 fl (80.0-96.0); MONO # 0.7 10^3/uL (0.0-0.8); MONO % 6.6 % (2.0-8.0); NEUTROPHILS # 5.5 10^3/uL (1.5-8.5); NEUTROPHILS % 52.7 % (36.0-66.0); PLATELET COUNT, AUTOMATED 280 10^3/uL (150-450); RED BLOOD COUNT 4.57 10^6/uL (4.00-5.40); WHITE BLOOD COUNT 10.5 10^3/uL (4.0-10.0)
[2022-05-30 04:37] LABS: HCG, SERUM QUALITATIVE NEGATIVE (NEGATIVE)
[2022-05-30] MEDS ORDERED: CHARCOAL ACTIVATED LIQUID 25 GM/120 ML BTL PO ONE (04:50)
[2022-05-30 04:54] LABS: ACETAMINOPHEN LEVEL 2.3 UG/ML (10.0-30.0); ALT/SGPT 38 U/L (12-78); BILIRUBIN,DIRECT < 0.1 MG/DL (0.0-0.2); BILIRUBIN,TOTAL 0.2 MG/DL (0.2-1.0); BLOOD UREA NITROGEN 13 MG/DL (7-18); CALCIUM LEVEL 8.8 MG/DL (8.5-10.1); CARBON DIOXIDE LEVEL 26 MEQ/L (21-32); CHLORIDE LEVEL 109 MEQ/L (98-107); ETHYL ALCOHOL (ETHANOL) < 0.003 % (0.000-0.010); GLOMERULAR FILTRATION RATE > 60.0 (>60); GLUCOSE, FASTING 119 MG/DL (70-100); POTASSIUM SERUM 3.8 MEQ/L (3.5-5.1); SODIUM LEVEL 143 MEQ/L (136-145); TOTAL PROTEIN 6.6 GM/DL (6.4-8.2)
[2022-05-30 06:01] LABS: VENOUS BASE EXCESS -1.1 (-2.0-2.0); VENOUS HCO3 23.8 MEQ/L (23.0-27.0); VENOUS O2 SATURATION 88.9 % (60.0-80.0); VENOUS PARTIAL PRESSURE CO2 40.3 mmHg (38.0-50.0); VENOUS PARTIAL PRESSURE O2 53.5 mmHg (30.0-50.0); VENOUS PH 7.389 UNITS (7.330-7.430); VENOUS STANDARD HCO3 23.4 MEQ/L
[2022-05-30 06:31] LABS: BLOOD UREA NITROGEN 12 MG/DL (7-18); CALCIUM LEVEL 8.8 MG/DL (8.5-10.1); CARBON DIOXIDE LEVEL 23 MEQ/L (21-32); CHLORIDE LEVEL 108 MEQ/L (98-107); GLOMERULAR FILTRATION RATE > 60.0 (>60); GLUCOSE, FASTING 151 MG/DL (70-100); POTASSIUM SERUM 3.5 MEQ/L (3.5-5.1); SALICYLATE LEVEL 7.1 MG/DL (5.0-30.0); SODIUM LEVEL 141 MEQ/L (136-145)
[2022-05-30 07:30] LABS: ACETAMINOPHEN LEVEL < 2.0 UG/ML (10.0-30.0); SALICYLATE LEVEL 7.7 MG/DL (5.0-30.0)
[2022-05-30] MEDS ORDERED: ABIL1INJ2 IM (18:17)
[2022-05-30] MEDS ORDERED: HOME MED LIST COMPLETE! XX SCH (18:20)
[2022-05-30 19:42] LABS: AMPHETAMINES LEVEL URINE NEGATIVE (NEGATIVE); BARBITURATES URINE NEGATIVE (NEGATIVE); BENZODIAZEPINES URINE NEGATIVE (NEGATIVE); CANNABINOIDS URINE NEGATIVE (NEGATIVE); COCAINE METABOLITE URINE NEGATIVE (NEGATIVE); METHADONE URINE NEGATIVE (NEGATIVE); OPIATES URINE NEGATIVE (NEGATIVE); PHENCYCLIDINE URINE NEGATIVE (NEGATIVE)
[2022-05-31 15:23] LABS: RSV AMPLIFICATION NEGATIVE (NEGATIVE)
[2022-05-31] MEDS ORDERED: MOM 30ML SUSPENSION UDC PO PRN (15:40)
[2022-05-31] MEDS ORDERED: MAALOX 30 ML SUSP *UDC PO PRN (15:40)
[2022-05-31 18:10] VITALS: BP 134/82
[2022-06-01] MEDS: hydroCHLOROthiazide 12.5 MG CAPSULE PO SCH (10:01)
[2022-06-01] MEDS: traZODone 50 MG TAB PO PRN (22:33)
[2022-06-02] MEDS: ACETAMINOPHEN TAB 650MG DOSE (2X325MG) PO PRN (05:16)
[2022-06-02 06:19] VITALS: BP 139/77
[2022-06-02] MEDS: hydroCHLOROthiazide 12.5 MG CAPSULE PO SCH (08:15)
[2022-06-02] MEDS ORDERED: ARIPiprazole MONOHYDRATE 400 MG INJ (ABILIFY)(FREE PSY INPT ONLY) IM ONE (09:40)
[2022-06-02 18:00] VITALS: BP 149/84
[2022-06-02] MEDS: traZODone 50 MG TAB PO PRN (20:48)
[2022-06-03 06:42] VITALS: BP 130/68
[2022-06-03] MEDS: hydroCHLOROthiazide 12.5 MG CAPSULE PO SCH (09:36)
[2022-06-03 18:00] VITALS: BP 136/84
[2022-06-04 07:01] VITALS: BP 99/55
[2022-06-04] MEDS: hydroCHLOROthiazide 12.5 MG CAPSULE PO SCH (09:13)
[2022-06-04 18:43] VITALS: BP 132/95
[2022-06-05 06:20] VITALS: BP 125/60
[2022-06-05] MEDS: hydroCHLOROthiazide 12.5 MG CAPSULE PO SCH (10:13)
[2022-06-05] MEDS: ACETAMINOPHEN TAB 650MG DOSE (2X325MG) PO PRN (11:52)
== END 2022-06-05 14:06 | disposition home or self-care (01) | DRG 753 ==
LOC: M ED 03:33 → M ED INP 05-31 15:37 → M PSY 05-31 17:32
PROVIDERS: ADMIT Student in an Organized Health Care Education/Training Program; ATTEND Student in an Organized Health Care Education/Training Program
DX: F31.9 Bipolar disorder, unspecified (principal); F43.10 Post-traumatic stress disorder, unspecified; F60.3 Borderline personality disorder; F60.7 Dependent personality disorder; J45.909 Unspecified asthma, uncomplicated; I10 Essential (primary) hypertension; F41.9 Anxiety disorder, unspecified; F32.A Depression, unspecified; E66.01 Morbid (severe) obesity due to excess calories; T39.1X2A Poisoning by 4-Aminophenol derivatives, intentional self-harm, initial encounter; Z90.49 Acquired absence of other specified parts of digestive tract; Z90.79 Acquired absence of other genital organ(s); Z20.822 Contact with and (suspected) exposure to COVID-19; Z68.44 Body mass index [BMI] 60.0-69.9, adult; Z91.51 Personal history of suicidal behavior

== ENCOUNTER 2022-06-10 23:44 | Emergency (ER) | payer MEDICAID, OTHER ==
[~2022-06-10] VITALS: Ht 160 cm; Wt 171.9 kg
[2022-06-11 00:41] LABS: HEMATOCRIT 40.5 % (36.0-47.0); HEMOGLOBIN 12.6 g/dl (12.0-15.5); MEAN CORPUSCULAR HEMOGLOBIN 25.8 pg (27.0-33.0); MEAN CORPUSCULAR HGB CONC 31.1 g/dl (32.0-36.5); MEAN CORPUSCULAR VOLUME 82.8 fl (80.0-96.0); PLATELET COUNT, AUTOMATED 306 10^3/uL (150-450); RED BLOOD COUNT 4.89 10^6/uL (4.00-5.40); WHITE BLOOD COUNT 11.6 10^3/uL (4.0-10.0)
[2022-06-11 00:44] LABS: AMPHETAMINES LEVEL URINE NEGATIVE (NEGATIVE); BARBITURATES URINE NEGATIVE (NEGATIVE); BENZODIAZEPINES URINE NEGATIVE (NEGATIVE); CANNABINOIDS URINE NEGATIVE (NEGATIVE); COCAINE METABOLITE URINE NEGATIVE (NEGATIVE); METHADONE URINE NEGATIVE (NEGATIVE); OPIATES URINE NEGATIVE (NEGATIVE); PHENCYCLIDINE URINE NEGATIVE (NEGATIVE)
[2022-06-11 00:45] LABS: HCG, SERUM QUALITATIVE NEGATIVE (NEGATIVE)
[2022-06-11 00:54] LABS: RSV AMPLIFICATION NEGATIVE (NEGATIVE)
[2022-06-11 01:02] LABS: ACETAMINOPHEN LEVEL < 2.0 UG/ML (10.0-30.0); ALBUMIN 3.3 GM/DL (3.2-5.2); ALT/SGPT 37 U/L (12-78); BILIRUBIN,DIRECT < 0.1 MG/DL (0.0-0.2); BILIRUBIN,TOTAL 0.2 MG/DL (0.2-1.0); BLOOD UREA NITROGEN 11 MG/DL (7-18); CARBON DIOXIDE LEVEL 29 MEQ/L (21-32); CHLORIDE LEVEL 107 MEQ/L (98-107); CREATININE FOR GFR 0.81 MG/DL (0.55-1.30); ETHYL ALCOHOL (ETHANOL) 0.004 % (0.000-0.010); GLOMERULAR FILTRATION RATE > 60.0 (>60); GLUCOSE, FASTING 140 MG/DL (70-100); POTASSIUM SERUM 4.2 MEQ/L (3.5-5.1); SALICYLATE LEVEL < 1.7 MG/DL (5.0-30.0); SODIUM LEVEL 141 MEQ/L (136-145)
[2022-06-11] MEDS ORDERED: HOME MED LIST COMPLETE! XX SCH (17:00)
[2022-06-13] MEDS: hydroCHLOROthiazide 12.5 MG CAPSULE PO SCH (08:16)
[2022-06-14] MEDS: hydroCHLOROthiazide 12.5 MG CAPSULE PO SCH (08:23)
[2022-06-14 16:50] VITALS: BP 111/60
== END 2022-06-14 19:30 | disposition home or self-care (01) ==
LOC: M ED 23:44
DX: F43.20 Adjustment disorder, unspecified (principal); F31.9 Bipolar disorder, unspecified; Z91.51 Personal history of suicidal behavior; Z79.899 Other long term (current) drug therapy

== ENCOUNTER 2022-06-17 01:18 | Emergency (ER) | payer MEDICAID, OTHER ==
[2022-06-17 02:40] LABS: AMPHETAMINES LEVEL URINE NEGATIVE (NEGATIVE); BARBITURATES URINE NEGATIVE (NEGATIVE); BENZODIAZEPINES URINE NEGATIVE (NEGATIVE); CANNABINOIDS URINE NEGATIVE (NEGATIVE); COCAINE METABOLITE URINE NEGATIVE (NEGATIVE); METHADONE URINE NEGATIVE (NEGATIVE); OPIATES URINE NEGATIVE (NEGATIVE); PHENCYCLIDINE URINE NEGATIVE (NEGATIVE)
[2022-06-17 02:58] LABS: BASO % 0.4 % (0.0-1.0); EOS # 0.1 10^3/uL (0.0-0.5); EOS % 1.1 % (0.0-3.0); HEMATOCRIT 36.1 % (36.0-47.0); HEMOGLOBIN 11.3 g/dl (12.0-15.5); LYMPH # 4.1 10^3/uL (1.5-5.0); LYMPH % 37.6 % (24.0-44.0); MEAN CORPUSCULAR HEMOGLOBIN 25.7 pg (27.0-33.0); MEAN CORPUSCULAR HGB CONC 31.3 g/dl (32.0-36.5); MEAN CORPUSCULAR VOLUME 82.2 fl (80.0-96.0); MONO # 0.7 10^3/uL (0.0-0.8); MONO % 6.7 % (2.0-8.0); NEUTROPHILS # 5.8 10^3/uL (1.5-8.5); NEUTROPHILS % 53.8 % (36.0-66.0); PLATELET COUNT, AUTOMATED 269 10^3/uL (150-450); RED BLOOD COUNT 4.39 10^6/uL (4.00-5.40); WHITE BLOOD COUNT 10.9 10^3/uL (4.0-10.0)
[2022-06-17 03:07] LABS: RSV AMPLIFICATION NEGATIVE (NEGATIVE)
[2022-06-17 03:29] LABS: HCG, SERUM QUALITATIVE NEGATIVE (NEGATIVE)
[2022-06-17 03:40] LABS: ACETAMINOPHEN LEVEL < 2.0 UG/ML (10.0-30.0); ALBUMIN 2.9 GM/DL (3.2-5.2); ALT/SGPT 32 U/L (12-78); BILIRUBIN,DIRECT < 0.1 MG/DL (0.0-0.2); BILIRUBIN,TOTAL 0.2 MG/DL (0.2-1.0); BLOOD UREA NITROGEN 13 MG/DL (7-18); CALCIUM LEVEL 8.4 MG/DL (8.5-10.1); CARBON DIOXIDE LEVEL 26 MEQ/L (21-32); CHLORIDE LEVEL 109 MEQ/L (98-107); CREATININE FOR GFR 0.54 MG/DL (0.55-1.30); ETHYL ALCOHOL (ETHANOL) < 0.003 % (0.000-0.010); GLOMERULAR FILTRATION RATE > 60.0 (>60); GLUCOSE, FASTING 137 MG/DL (70-100); POTASSIUM SERUM 3.9 MEQ/L (3.5-5.1); SALICYLATE LEVEL < 1.7 MG/DL (5.0-30.0); SODIUM LEVEL 141 MEQ/L (136-145); TOTAL PROTEIN 6.4 GM/DL (6.4-8.2)
[2022-06-17] MEDS: hydroCHLOROthiazide 12.5 MG CAPSULE PO SCH (09:47)
[2022-06-17] MEDS ORDERED: HOME MED LIST COMPLETE! XX SCH (10:15)
[2022-06-18] MEDS: hydroCHLOROthiazide 12.5 MG CAPSULE PO SCH (09:00)
[2022-06-18 12:12] VITALS: BP 122/75
== END 2022-06-18 12:15 | disposition home or self-care (01) ==
LOC: M ED 01:18
DX: F32.A Depression, unspecified (principal); R45.851 Suicidal ideations; F31.9 Bipolar disorder, unspecified

== ENCOUNTER 2022-06-19 01:07 | Inpatient (IN) | payer MEDICAID, OTHER ==
[~2022-06-19] VITALS: Ht 157.5 cm; Wt 167.9 kg
[2022-06-19 04:29] LABS: RSV AMPLIFICATION NEGATIVE (NEGATIVE)
[2022-06-19 05:17] LABS: HEMATOCRIT 36.9 % (36.0-47.0); HEMOGLOBIN 11.7 g/dl (12.0-15.5); MEAN CORPUSCULAR HEMOGLOBIN 26.5 pg (27.0-33.0); MEAN CORPUSCULAR HGB CONC 31.7 g/dl (32.0-36.5); MEAN CORPUSCULAR VOLUME 83.5 fl (80.0-96.0); PLATELET COUNT, AUTOMATED 310 10^3/uL (150-450); RED BLOOD COUNT 4.42 10^6/uL (4.00-5.40)
[2022-06-19 05:48] LABS: HCG, SERUM QUALITATIVE NEGATIVE (NEGATIVE)
[2022-06-19 06:05] LABS: ACETAMINOPHEN LEVEL < 2.0 UG/ML (10.0-30.0); ALT/SGPT 33 U/L (12-78); BILIRUBIN,DIRECT < 0.1 MG/DL (0.0-0.2); BILIRUBIN,TOTAL 0.1 MG/DL (0.2-1.0); BLOOD UREA NITROGEN 10 MG/DL (7-18); CALCIUM LEVEL 8.6 MG/DL (8.5-10.1); CARBON DIOXIDE LEVEL 25 MEQ/L (21-32); CHLORIDE LEVEL 109 MEQ/L (98-107); CREATININE FOR GFR 0.55 MG/DL (0.55-1.30); ETHYL ALCOHOL (ETHANOL) < 0.003 % (0.000-0.010); GLOMERULAR FILTRATION RATE > 60.0 (>60); GLUCOSE, FASTING 170 MG/DL (70-100); SALICYLATE LEVEL < 1.7 MG/DL (5.0-30.0); SODIUM LEVEL 141 MEQ/L (136-145); TOTAL PROTEIN 6.7 GM/DL (6.4-8.2)
[2022-06-19] MEDS ORDERED: HOME MED LIST COMPLETE! XX SCH (07:35)
[2022-06-19 12:47] LABS: AMPHETAMINES LEVEL URINE NEGATIVE (NEGATIVE); BARBITURATES URINE NEGATIVE (NEGATIVE); BENZODIAZEPINES URINE NEGATIVE (NEGATIVE); CANNABINOIDS URINE NEGATIVE (NEGATIVE); COCAINE METABOLITE URINE NEGATIVE (NEGATIVE); METHADONE URINE NEGATIVE (NEGATIVE); OPIATES URINE NEGATIVE (NEGATIVE); PHENCYCLIDINE URINE NEGATIVE (NEGATIVE)
[2022-06-20] MEDS: hydroCHLOROthiazide 12.5 MG CAPSULE PO SCH (09:02)
[2022-06-21] MEDS: hydroCHLOROthiazide 12.5 MG CAPSULE PO SCH (09:04)
[2022-06-22] MEDS: hydroCHLOROthiazide 12.5 MG CAPSULE PO SCH (08:58)
[2022-06-23] MEDS: hydroCHLOROthiazide 12.5 MG CAPSULE PO SCH (07:29)
[2022-06-24] MEDS: hydroCHLOROthiazide 12.5 MG CAPSULE PO SCH (10:24)
[2022-06-24] MEDS ORDERED: MOM 30ML SUSPENSION UDC PO PRN (13:45)
[2022-06-24] MEDS ORDERED: ACETAMINOPHEN TAB 650MG DOSE (2X325MG) PO PRN (13:45)
[2022-06-24] MEDS: ARIPiprazole 10 MG TAB PO SCH (15:00)
[2022-06-24 18:14] VITALS: BP 130/74
[2022-06-24] MEDS: traZODone 50 MG TAB PO PRN (23:07)
[2022-06-25 06:38] VITALS: BP 101/59
[2022-06-25] MEDS: hydroCHLOROthiazide 12.5 MG CAPSULE PO SCH (09:00)
[2022-06-25] MEDS: ARIPiprazole 10 MG TAB PO SCH (09:00)
[2022-06-25 19:10] VITALS: BP 142/67
[2022-06-25] MEDS: traZODone 50 MG TAB PO PRN (23:22)
[2022-06-26] MEDS: ARIPiprazole 10 MG TAB PO SCH (08:23)
[2022-06-26] MEDS: hydroCHLOROthiazide 12.5 MG CAPSULE PO SCH (11:22)
[2022-06-27] MEDS: ARIPiprazole 10 MG TAB PO SCH (09:00)
[2022-06-27] MEDS: hydroCHLOROthiazide 12.5 MG CAPSULE PO SCH (11:18)
[2022-06-27 18:16] VITALS: BP 135/88
[2022-06-27] MEDS: traZODone 50 MG TAB PO PRN (20:17)
[2022-06-28] MEDS: ARIPiprazole 10 MG TAB PO SCH (09:00)
[2022-06-28] MEDS: hydroCHLOROthiazide 12.5 MG CAPSULE PO SCH (09:00)
[2022-06-28 18:12] VITALS: BP 149/73
[2022-06-28] MEDS: traZODone 50 MG TAB PO PRN (20:43)
[2022-06-29] MEDS ORDERED: TRAZ-252 PO (08:23)
[2022-06-29] MEDS: ARIPiprazole 10 MG TAB PO SCH (09:00)
[2022-06-29] MEDS: hydroCHLOROthiazide 12.5 MG CAPSULE PO SCH (09:36)
[2022-07-03] MEDS ORDERED: ARIPiprazole MONOHYDRATE 400 MG INJ (ABILIFY)(FREE PSY INPT ONLY) IM SCH (09:00)
== END 2022-06-29 12:17 | disposition home or self-care (01) | DRG 753 ==
LOC: M ED 01:07 → M ED INP 14:03 → UNDOADMIN 14:03 → M ED INP 06-24 13:45 → M PSY 06-24 14:10
PROVIDERS: ADMIT Psychiatry & Neurology Psychiatry; ATTEND Psychiatry & Neurology Psychiatry
DX: F31.9 Bipolar disorder, unspecified (principal); E66.01 Morbid (severe) obesity due to excess calories; R45.851 Suicidal ideations; K76.0 Fatty (change of) liver, not elsewhere classified; F32.A Depression, unspecified; F60.3 Borderline personality disorder; I10 Essential (primary) hypertension; J45.909 Unspecified asthma, uncomplicated; F41.9 Anxiety disorder, unspecified

== ENCOUNTER 2022-08-04 02:14 | Emergency (ER) | payer MEDICAID, OTHER ==
[~2022-08-04] VITALS: Ht 160 cm; Wt 150.0 kg
[2022-08-04 03:39] LABS: HEMATOCRIT 38.1 % (36.0-47.0); MEAN CORPUSCULAR HEMOGLOBIN 25.7 pg (27.0-33.0); MEAN CORPUSCULAR HGB CONC 31.5 g/dl (32.0-36.5); MEAN CORPUSCULAR VOLUME 81.6 fl (80.0-96.0); PLATELET COUNT, AUTOMATED 258 10^3/uL (150-450); RED BLOOD COUNT 4.67 10^6/uL (4.00-5.40); WHITE BLOOD COUNT 10.8 10^3/uL (4.0-10.0)
[2022-08-04 04:08] LABS: HCG, SERUM QUALITATIVE NEGATIVE (NEGATIVE)
[2022-08-04 04:12] LABS: RSV AMPLIFICATION NEGATIVE (NEGATIVE)
[2022-08-04 04:24] LABS: ACETAMINOPHEN LEVEL < 2.0 UG/ML (10.0-30.0); ALT/SGPT 27 U/L (12-78); BILIRUBIN,DIRECT < 0.1 MG/DL (0.0-0.2); BILIRUBIN,TOTAL 0.2 MG/DL (0.2-1.0); BLOOD UREA NITROGEN 9 MG/DL (7-18); CALCIUM LEVEL 9.1 MG/DL (8.5-10.1); CARBON DIOXIDE LEVEL 26 MEQ/L (21-32); CHLORIDE LEVEL 108 MEQ/L (98-107); CREATININE FOR GFR 0.49 MG/DL (0.55-1.30); ETHYL ALCOHOL (ETHANOL) < 0.003 % (0.000-0.010); GLOMERULAR FILTRATION RATE > 60.0 (>60); GLUCOSE, FASTING 104 MG/DL (70-100); SALICYLATE LEVEL < 1.7 MG/DL (5.0-30.0); SODIUM LEVEL 138 MEQ/L (136-145); TOTAL PROTEIN 6.8 GM/DL (6.4-8.2)
[2022-08-04] MEDS ORDERED: TRAZ-252 PO (04:31)
[2022-08-04 06:32] VITALS: BP 108/59
[2022-08-04 11:25] LABS: AMPHETAMINES LEVEL URINE NEGATIVE (NEGATIVE); BARBITURATES URINE NEGATIVE (NEGATIVE); BENZODIAZEPINES URINE NEGATIVE (NEGATIVE); CANNABINOIDS URINE NEGATIVE (NEGATIVE); COCAINE METABOLITE URINE NEGATIVE (NEGATIVE); METHADONE URINE NEGATIVE (NEGATIVE); OPIATES URINE NEGATIVE (NEGATIVE); PHENCYCLIDINE URINE NEGATIVE (NEGATIVE)
== END 2022-08-04 15:33 | disposition home or self-care (01) ==
LOC: M ED 02:14
DX: F32.A Depression, unspecified (principal); Z76.5 Malingerer [conscious simulation]; R45.851 Suicidal ideations; I10 Essential (primary) hypertension; J45.909 Unspecified asthma, uncomplicated; F31.9 Bipolar disorder, unspecified; K21.9 Gastro-esophageal reflux disease without esophagitis; Z79.84 Long term (current) use of oral hypoglycemic drugs; Z79.83 Long term (current) use of bisphosphonates

== ENCOUNTER 2022-08-07 04:03 | Emergency (ER) | payer MEDICAID, OTHER ==
[~2022-08-07] VITALS: Ht 160 cm; Wt 163.0 kg
[2022-08-07 05:21] LABS: RSV AMPLIFICATION NEGATIVE (NEGATIVE)
[2022-08-07 05:26] LABS: AMPHETAMINES LEVEL URINE NEGATIVE (NEGATIVE); BARBITURATES URINE NEGATIVE (NEGATIVE); BENZODIAZEPINES URINE NEGATIVE (NEGATIVE); CANNABINOIDS URINE NEGATIVE (NEGATIVE); COCAINE METABOLITE URINE NEGATIVE (NEGATIVE); METHADONE URINE NEGATIVE (NEGATIVE); OPIATES URINE NEGATIVE (NEGATIVE); PHENCYCLIDINE URINE NEGATIVE (NEGATIVE)
[2022-08-07 09:58] LABS: HEMATOCRIT 37.3 % (36.0-47.0); HEMOGLOBIN 11.5 g/dl (12.0-15.5); MEAN CORPUSCULAR HEMOGLOBIN 25.5 pg (27.0-33.0); MEAN CORPUSCULAR HGB CONC 30.8 g/dl (32.0-36.5); MEAN CORPUSCULAR VOLUME 82.7 fl (80.0-96.0); PLATELET COUNT, AUTOMATED 263 10^3/uL (150-450); RED BLOOD COUNT 4.51 10^6/uL (4.00-5.40); WHITE BLOOD COUNT 12.8 10^3/uL (4.0-10.0)
[2022-08-07 10:27] LABS: HCG, SERUM QUALITATIVE NEGATIVE (NEGATIVE)
[2022-08-07 10:49] LABS: ACETAMINOPHEN LEVEL < 2.0 UG/ML (10.0-30.0); ALBUMIN 2.9 GM/DL (3.2-5.2); ALT/SGPT 25 U/L (12-78); BILIRUBIN,DIRECT < 0.1 MG/DL (0.0-0.2); BILIRUBIN,TOTAL 0.6 MG/DL (0.2-1.0); BLOOD UREA NITROGEN 15 MG/DL (7-18); CALCIUM LEVEL 8.8 MG/DL (8.5-10.1); CARBON DIOXIDE LEVEL 28 MEQ/L (21-32); CHLORIDE LEVEL 108 MEQ/L (98-107); CREATININE FOR GFR 0.52 MG/DL (0.55-1.30); ETHYL ALCOHOL (ETHANOL) < 0.003 % (0.000-0.010); GLOMERULAR FILTRATION RATE > 60.0 (>60); GLUCOSE, FASTING 137 MG/DL (70-100); SALICYLATE LEVEL < 1.7 MG/DL (5.0-30.0); SODIUM LEVEL 141 MEQ/L (136-145); TOTAL PROTEIN 6.2 GM/DL (6.4-8.2)
[2022-08-07] MEDS ORDERED: HOME MED LIST COMPLETE! XX SCH (17:45)
[2022-08-07] MEDS: VENLAFAXINE **XR** 75MG CAPSULE PO SCH (19:33)
[2022-08-08] MEDS: VENLAFAXINE **XR** 75MG CAPSULE PO SCH (09:00)
[2022-08-09] MEDS: VENLAFAXINE **XR** 75MG CAPSULE PO SCH (09:44)
[2022-08-10] MEDS: VENLAFAXINE **XR** 75MG CAPSULE PO SCH (09:03)
[2022-08-10] MEDS ORDERED: VENL75CA47 PO (14:18)
[2022-08-10 15:43] VITALS: BP 128/53
== END 2022-08-10 15:49 | disposition home or self-care (01) ==
LOC: M ED 04:03
DX: F31.9 Bipolar disorder, unspecified (principal); R45.851 Suicidal ideations; F15.10 Other stimulant abuse, uncomplicated

== ENCOUNTER → 2022-10-01 | Outpatient (CLI) | payer MEDICAID, OTHER ==
[2022-10-01 15:40] LABS: FREE T4 1.23 NG/DL (0.89-1.76); HCG, SERUM QUANTITATIVE 2.59999 MIU/ML (<4.2); THYROID STIMULATING HORMONE 1.216 uIU/ML (0.55-4.78)
== END ==
LOC: M PLALAB 11:30
PROVIDERS: ATTEND Internal Medicine Hematology
DX: N92.6 Irregular menstruation, unspecified (principal)

== ENCOUNTER 2022-10-20 17:11 | Inpatient (IN) | payer MEDICAID, OTHER ==
[~2022-10-20] VITALS: Ht 160 cm; Wt 173.6 kg
[2022-10-20 18:48] LABS: AMPHETAMINES LEVEL URINE NEGATIVE (NEGATIVE); BARBITURATES URINE NEGATIVE (NEGATIVE); BENZODIAZEPINES URINE NEGATIVE (NEGATIVE); CANNABINOIDS URINE NEGATIVE (NEGATIVE); COCAINE METABOLITE URINE NEGATIVE (NEGATIVE); METHADONE URINE NEGATIVE (NEGATIVE); OPIATES URINE NEGATIVE (NEGATIVE); PHENCYCLIDINE URINE NEGATIVE (NEGATIVE)
[2022-10-20 19:34] LABS: RSV AMPLIFICATION NEGATIVE (NEGATIVE)
[2022-10-20 19:45] LABS: HEMATOCRIT 40.1 % (36.0-47.0); HEMOGLOBIN 12.4 g/dl (12.0-15.5); MEAN CORPUSCULAR HEMOGLOBIN 25.5 pg (27.0-33.0); MEAN CORPUSCULAR HGB CONC 30.9 g/dl (32.0-36.5); MEAN CORPUSCULAR VOLUME 82.5 fl (80.0-96.0); PLATELET COUNT, AUTOMATED 306 10^3/uL (150-450); RED BLOOD COUNT 4.86 10^6/uL (4.00-5.40); WHITE BLOOD COUNT 11.3 10^3/uL (4.0-10.0)
[2022-10-20 20:03] LABS: HCG, SERUM QUALITATIVE NEGATIVE (NEGATIVE)
[2022-10-20 20:09] LABS: ETHYL ALCOHOL (ETHANOL) 0.005 % (0.000-0.010); SALICYLATE LEVEL 5.6 MG/DL (<30)
[2022-10-20 20:10] LABS: ACETAMINOPHEN LEVEL < 2.0 UG/ML (10.0-20.0); ALBUMIN 3.2 G/DL (3.2-5.2); ALKALINE PHOSPHATASE 92 U/L (46-116); ALT/SGPT 27 U/L (7.0-40); AST/SGOT 13 U/L (<34); BILIRUBIN,TOTAL 0.3 MG/DL (0.3-1.2); BLOOD UREA NITROGEN 13 MG/DL (9-23); CALCIUM LEVEL 9.4 MG/DL (8.5-10.1); CARBON DIOXIDE LEVEL 26 MMOL/L (20-31); CHLORIDE LEVEL 103 MMOL/L (98-107); CREATININE FOR GFR 0.61 MG/DL (0.55-1.30); GLOMERULAR FILTRATION RATE > 60.0 (>60); GLUCOSE, FASTING 128 MG/DL (60-100); POTASSIUM SERUM 3.8 MMOL/L (3.5-5.1); SODIUM LEVEL 140 MMOL/L (136-145); TOTAL PROTEIN 6.9 G/DL (5.7-8.2)
[2022-10-20 20:11] LABS: BILIRUBIN,DIRECT 0.1 MG/DL (<0.4)
[2022-10-20 20:12] LABS: THYROID STIMULATING HORMONE 1.438 uIU/ML (0.55-4.78)
[2022-10-20] MEDS ORDERED: MOM 30ML SUSPENSION UDC PO PRN (20:50)
[2022-10-20] MEDS ORDERED: MAALOX 30 ML SUSP *UDC PO PRN (20:50)
[2022-10-20] MEDS ORDERED: VENL75CA47 PO (21:48)
[2022-10-20] MEDS ORDERED: HOME MED LIST COMPLETE! XX SCH (21:50)
[2022-10-20 21:56] VITALS: BP 135/99
[2022-10-21 06:30] VITALS: BP 133/70
[2022-10-21] MEDS: hydroCHLOROthiazide 12.5 MG CAPSULE PO SCH (09:19)
[2022-10-21] MEDS: VENLAFAXINE **XR** 75MG CAPSULE PO SCH (09:20)
[2022-10-21 16:11] VITALS: BP 129/63
[2022-10-22 06:19] VITALS: BP 111/56
[2022-10-22] MEDS: VENLAFAXINE **XR** 75MG CAPSULE PO SCH (08:40)
[2022-10-22] MEDS: hydroCHLOROthiazide 12.5 MG CAPSULE PO SCH (08:40)
[2022-10-22 19:08] VITALS: BP 132/72
[2022-10-22] MEDS: traZODone 50 MG TAB PO PRN (21:03)
[2022-10-23] MEDS: LORazepam 1 MG TAB PO PRN ×2 (00:21→21:59)
[2022-10-23 06:58] VITALS: BP 136/91
[2022-10-23] MEDS: VENLAFAXINE **XR** 75MG CAPSULE PO SCH (08:23)
[2022-10-23] MEDS: hydroCHLOROthiazide 12.5 MG CAPSULE PO SCH (08:24)
[2022-10-23 10:08] VITALS: BP 136/91
[2022-10-23 16:23] VITALS: BP 144/70
[2022-10-24 06:22] VITALS: BP 128/57
[2022-10-24] MEDS: VENLAFAXINE **XR** 75MG CAPSULE PO SCH (09:18)
[2022-10-24] MEDS: hydroCHLOROthiazide 12.5 MG CAPSULE PO SCH (09:18)
[2022-10-24 16:22] VITALS: BP 146/83
[2022-10-24 20:49] VITALS: BP 146/83
[2022-10-25] MEDS: ACETAMINOPHEN TAB 650MG DOSE (2X325MG) PO PRN ×2 (00:54→19:14)
[2022-10-25] MEDS: LORazepam 1 MG TAB PO PRN (02:51)
[2022-10-25 06:23] VITALS: BP 137/75
[2022-10-25] MEDS: hydroCHLOROthiazide 12.5 MG CAPSULE PO SCH (09:19)
[2022-10-25] MEDS: VENLAFAXINE **XR** 75MG CAPSULE PO SCH (09:19)
[2022-10-25 16:30] VITALS: BP 138/94
[2022-10-26] MEDS: ACETAMINOPHEN TAB 650MG DOSE (2X325MG) PO PRN ×3 (01:34→22:01)
[2022-10-26] MEDS: IBUPROFEN 600MG TAB PO PRN ×2 (03:05→19:08)
[2022-10-26 06:46] VITALS: BP 133/62
[2022-10-26] MEDS: VENLAFAXINE **XR** 75MG CAPSULE PO SCH (09:15)
[2022-10-26] MEDS: hydroCHLOROthiazide 12.5 MG CAPSULE PO SCH (09:15)
[2022-10-26 18:58] VITALS: BP 148/89
[2022-10-27] MEDS: traZODone 50 MG TAB PO PRN (01:49)
[2022-10-27] MEDS: IBUPROFEN 600MG TAB PO PRN (06:08)
[2022-10-27 06:44] VITALS: BP 127/73
[2022-10-27] MEDS: VENLAFAXINE **XR** 75MG CAPSULE PO SCH (07:51)
[2022-10-27] MEDS: hydroCHLOROthiazide 12.5 MG CAPSULE PO SCH (07:51)
[2022-10-27] MEDS: ACETAMINOPHEN TAB 650MG DOSE (2X325MG) PO PRN (07:52)
== END 2022-10-27 13:35 | disposition home or self-care (01) | DRG 751 ==
LOC: M ED 17:11 → M ED INP 20:48 → M PSY 21:47
PROVIDERS: ADMIT Psychiatry & Neurology Psychiatry; ATTEND Psychiatry & Neurology Psychiatry
DX: F33.9 Major depressive disorder, recurrent, unspecified (principal); I10 Essential (primary) hypertension; R45.851 Suicidal ideations; F31.9 Bipolar disorder, unspecified; F43.10 Post-traumatic stress disorder, unspecified; F60.3 Borderline personality disorder; Z79.899 Other long term (current) drug therapy

== ENCOUNTER 2022-11-11 12:45 | Outpatient (RCR) | payer OTHER ==
[~2022-11-11 12:45] MED LIST changes: +DIPH-435; +DIPH-435 PO; -DIPH25CA32; -DIPH25CA32 PO
== END 2022-11-14 ==
LOC: M OT 12:45
PROVIDERS: ATTEND Physician Assistant
DX: Z51.89 Encounter for other specified aftercare (principal); Z98.890 Other specified postprocedural states

== ENCOUNTER 2022-12-08 20:38 | Inpatient (IN) | payer MEDICAID, OTHER ==
[~2022-12-08] VITALS: Ht 160 cm; Wt 166.4 kg
[2022-12-08 21:57] LABS: RSV AMPLIFICATION NEGATIVE (NEGATIVE)
[2022-12-08 22:01] LABS: HEMATOCRIT 45.3 % (36.0-47.0); HEMOGLOBIN 14.1 g/dl (12.0-15.5); MEAN CORPUSCULAR HEMOGLOBIN 25.8 pg (27.0-33.0); MEAN CORPUSCULAR HGB CONC 31.1 g/dl (32.0-36.5); MEAN CORPUSCULAR VOLUME 82.8 fl (80.0-96.0); PLATELET COUNT, AUTOMATED 316 10^3/uL (150-450); RED BLOOD COUNT 5.47 10^6/uL (4.00-5.40); WHITE BLOOD COUNT 10.9 10^3/uL (4.0-10.0)
[2022-12-08 22:19] LABS: ETHYL ALCOHOL (ETHANOL) 0.003 % (0.000-0.010)
[2022-12-08 22:21] LABS: ACETAMINOPHEN LEVEL < 2.0 UG/ML (10.0-20.0); ALBUMIN 3.7 G/DL (3.2-5.2); ALKALINE PHOSPHATASE 101 U/L (46-116); ALT/SGPT 48 U/L (7.0-40); AST/SGOT 26 U/L (<34); BILIRUBIN,DIRECT < 0.1 MG/DL (<0.4); BILIRUBIN,TOTAL 0.3 MG/DL (0.3-1.2); BLOOD UREA NITROGEN 17 MG/DL (9-23); CALCIUM LEVEL 9.5 MG/DL (8.5-10.1); CARBON DIOXIDE LEVEL 26 MMOL/L (20-31); CHLORIDE LEVEL 105 MMOL/L (98-107); GLOMERULAR FILTRATION RATE > 60.0 (>60); GLUCOSE, FASTING 105 MG/DL (60-100); POTASSIUM SERUM 4.2 MMOL/L (3.5-5.1); SALICYLATE LEVEL < 3.0 MG/DL (<30); SODIUM LEVEL 140 MMOL/L (136-145); TOTAL PROTEIN 7.4 G/DL (5.7-8.2)
[2022-12-08 22:26] LABS: THYROID STIMULATING HORMONE 1.246 uIU/ML (0.55-4.78)
[2022-12-08 22:50] LABS: HCG, SERUM QUALITATIVE NEGATIVE (NEGATIVE)
[2022-12-09 03:10] LABS: AMPHETAMINES LEVEL URINE NEGATIVE (NEGATIVE); BARBITURATES URINE NEGATIVE (NEGATIVE); BENZODIAZEPINES URINE NEGATIVE (NEGATIVE); CANNABINOIDS URINE NEGATIVE (NEGATIVE); COCAINE METABOLITE URINE NEGATIVE (NEGATIVE); METHADONE URINE NEGATIVE (NEGATIVE); OPIATES URINE NEGATIVE (NEGATIVE); PHENCYCLIDINE URINE NEGATIVE (NEGATIVE)
[2022-12-09] MEDS ORDERED: HOME MED LIST COMPLETE! XX SCH (08:10)
[2022-12-09] MEDS ORDERED: VENLAFAXINE **XR** 75MG CAPSULE PO SCH (09:00)
[2022-12-09] MEDS ORDERED: hydroCHLOROthiazide 12.5 MG CAPSULE PO SCH (09:00)
[2022-12-09] MEDS: NICOTINE 21MG/24HR 1 EA TRANSDERMAL TD SCH (09:00)
[2022-12-09] MEDS ORDERED: MAALOX 30 ML SUSP *UDC PO PRN (13:15)
[2022-12-09] MEDS ORDERED: MOM 30ML SUSPENSION UDC PO PRN (13:15)
[2022-12-09 14:52] VITALS: BP 132/70
[2022-12-10 06:30] VITALS: BP 130/85
[2022-12-10] MEDS: VENLAFAXINE **XR** 75MG CAPSULE PO SCH (09:00)
[2022-12-10] MEDS: NICOTINE 21MG/24HR 1 EA TRANSDERMAL TD SCH (09:00)
[2022-12-10] MEDS: hydroCHLOROthiazide 12.5 MG CAPSULE PO SCH (09:00)
[2022-12-10 19:08] VITALS: BP 147/83
[2022-12-11] MEDS: NICOTINE 21MG/24HR 1 EA TRANSDERMAL TD SCH (09:00)
[2022-12-11] MEDS: CARIPRAZINE 1.5MG CAPSULE (VRAYLAR) PO SCH (09:12)
[2022-12-11] MEDS: VENLAFAXINE **XR** 75MG CAPSULE PO SCH (09:12)
[2022-12-11] MEDS: hydroCHLOROthiazide 12.5 MG CAPSULE PO SCH (09:12)
[2022-12-11] MEDS: IBUPROFEN 400MG TAB PO PRN (09:51)
[2022-12-11] MEDS: hydrOXYzine 50 MG TAB PO PRN (10:11)
[2022-12-11] MEDS: OLANZapine ORAL DISINTEGRATING TAB 5MG PO PRN (10:45)
[2022-12-11 17:26] VITALS: BP 121/54
[2022-12-12] MEDS ORDERED: LORazepam 2 MG/ML 1ML VIAL IM STA (01:37)
[2022-12-12] MEDS ORDERED: HALOPERIDOL 5MG/ML 1ML VIAL IM STA (01:37)
[2022-12-12] MEDS ORDERED: diphenhydrAMINE 50MG/ML VIAL IM STA (01:37)
[2022-12-12] MEDS: BACITRACIN OINTMENT 30GM TUBE TOP SCH (04:00)
[2022-12-12] MEDS: hydroCHLOROthiazide 12.5 MG CAPSULE PO SCH ×2 (09:00→17:34)
[2022-12-12] MEDS: NICOTINE 21MG/24HR 1 EA TRANSDERMAL TD SCH (09:00)
[2022-12-12] MEDS: VENLAFAXINE **XR** 75MG CAPSULE PO SCH ×2 (09:00→17:34)
[2022-12-12] MEDS: CARIPRAZINE 1.5MG CAPSULE (VRAYLAR) PO SCH ×2 (09:00→17:34)
[2022-12-12] MEDS: OLANZapine ORAL DISINTEGRATING TAB 5MG PO PRN (17:34)
[2022-12-12] MEDS: hydrOXYzine 50 MG TAB PO PRN (17:35)
[2022-12-13] MEDS: OLANZapine ORAL DISINTEGRATING TAB 5MG PO PRN (05:50)
[2022-12-13] MEDS: hydrOXYzine 50 MG TAB PO PRN ×2 (05:50→12:45)
[2022-12-13] MEDS: BACITRACIN OINTMENT 30GM TUBE TOP SCH ×2 (09:00→17:25)
[2022-12-13] MEDS: NICOTINE 21MG/24HR 1 EA TRANSDERMAL TD SCH (09:00)
[2022-12-13] MEDS: hydroCHLOROthiazide 12.5 MG CAPSULE PO SCH (12:45)
[2022-12-13] MEDS: CARIPRAZINE 1.5MG CAPSULE (VRAYLAR) PO SCH (12:45)
[2022-12-13] MEDS: VENLAFAXINE **XR** 75MG CAPSULE PO SCH (12:45)
[2022-12-13] MEDS ORDERED: LORazepam 2 MG TAB PO ONE (15:05)
[2022-12-13] MEDS ORDERED: diphenhydrAMINE 50MG CAP PO ONE (15:05)
[2022-12-13] MEDS: IBUPROFEN 400MG TAB PO PRN (17:23)
[2022-12-13 20:29] VITALS: BP 142/88
[2022-12-13] MEDS ORDERED: diphenhydrAMINE 50MG/ML VIAL IM STA (21:28)
[2022-12-13] MEDS ORDERED: LORazepam 2 MG/ML 1ML VIAL IM STA (21:28)
[2022-12-13] MEDS ORDERED: HALOPERIDOL 5MG/ML 1ML VIAL IM STA (21:28)
[2022-12-13 22:00] VITALS: BP 142/80
[2022-12-13 22:45] VITALS: BP 145/85
[2022-12-13 23:15] VITALS: BP 151/94
[2022-12-14] MEDS: BACITRACIN OINTMENT 30GM TUBE TOP SCH (09:00)
[2022-12-14] MEDS: VENLAFAXINE **XR** 75MG CAPSULE PO SCH ×2 (09:00→10:21)
[2022-12-14] MEDS: hydroCHLOROthiazide 12.5 MG CAPSULE PO SCH ×2 (09:00→10:21)
[2022-12-14] MEDS: CARIPRAZINE 1.5MG CAPSULE (VRAYLAR) PO SCH ×2 (09:00→10:21)
[2022-12-14] MEDS: OLANZapine ORAL DISINTEGRATING TAB 5MG PO PRN (14:00)
[2022-12-14] MEDS: hydrOXYzine 50 MG TAB PO PRN (14:00)
[2022-12-14] MEDS ORDERED: diphenhydrAMINE 50MG CAP PO ONE (17:00)
[2022-12-14] MEDS ORDERED: LORazepam 2 MG TAB PO ONE (17:00)
[2022-12-14 17:28] VITALS: BP 130/75
[2022-12-15 06:21] VITALS: BP 110/55
[2022-12-15] MEDS: VENLAFAXINE **XR** 75MG CAPSULE PO SCH (09:25)
[2022-12-15] MEDS: hydroCHLOROthiazide 12.5 MG CAPSULE PO SCH (09:25)
[2022-12-15] MEDS: CARIPRAZINE 1.5MG CAPSULE (VRAYLAR) PO SCH (09:25)
[2022-12-15] MEDS: BACITRACIN OINTMENT 30GM TUBE TOP SCH (09:25)
[2022-12-15] MEDS: hydrOXYzine 50 MG TAB PO PRN ×2 (09:44→20:41)
[2022-12-15] MEDS: OLANZapine ORAL DISINTEGRATING TAB 5MG PO PRN ×2 (09:44→20:41)
[2022-12-15] MEDS: IBUPROFEN 400MG TAB PO PRN ×2 (09:56→23:25)
[2022-12-15] MEDS ORDERED: LORazepam 2 MG TAB PO ONE (11:25)
[2022-12-15] MEDS: PRAZOSIN 1 MG CAP PO SCH ×2 (12:43→20:41)
[2022-12-15] MEDS: traZODone 50 MG TAB PO PRN (20:41)
[2022-12-15] MEDS ORDERED: hydrOXYzine 50 MG TAB PO ONE (23:20)
[2022-12-16] MEDS ORDERED: OLANZapine ORAL DISINTEGRATING TAB 5MG PO STA (01:16)
[2022-12-16] MEDS ORDERED: LORazepam 2 MG/ML 1ML VIAL IM STA (02:44)
[2022-12-16] MEDS: VENLAFAXINE **XR** 75MG CAPSULE PO SCH (09:55)
[2022-12-16] MEDS: hydroCHLOROthiazide 12.5 MG CAPSULE PO SCH (09:56)
[2022-12-16] MEDS: CARIPRAZINE 1.5MG CAPSULE (VRAYLAR) PO SCH (09:56)
[2022-12-16] MEDS: PRAZOSIN 1 MG CAP PO SCH ×2 (09:56→20:05)
[2022-12-16] MEDS: hydrOXYzine 50 MG TAB PO PRN ×2 (10:36→20:03)
[2022-12-16] MEDS: OLANZapine ORAL DISINTEGRATING TAB 5MG PO PRN ×2 (10:36→20:04)
[2022-12-16] MEDS: traZODone 50 MG TAB PO PRN (20:03)
[2022-12-16] MEDS: IBUPROFEN 400MG TAB PO PRN (20:03)
[2022-12-17] MEDS ORDERED: OLANZapine ORAL DISINTEGRATING TAB 5MG SL ONE (01:25)
[2022-12-17] MEDS ORDERED: diphenhydrAMINE 50MG/ML VIAL IM ONE (02:00)
[2022-12-17] MEDS ORDERED: HALOPERIDOL 5MG/ML 1ML VIAL IM ONE (02:00)
[2022-12-17] MEDS ORDERED: LORazepam 2 MG/ML 1ML VIAL IM ONE (02:00)
[2022-12-17] MEDS ORDERED: HALOPERIDOL 5MG/ML 1ML VIAL As Ordered ONE (02:07)
[2022-12-17] MEDS ORDERED: diphenhydrAMINE 50MG/ML VIAL As Ordered ONE (02:08)
[2022-12-17] MEDS ORDERED: LORazepam 2 MG/ML 1ML VIAL As Ordered ONE (02:09)
[2022-12-17] MEDS ORDERED: IBUPROFEN 400MG TAB As Ordered ONE (03:06)
[2022-12-17] MEDS: VENLAFAXINE **XR** 75MG CAPSULE PO SCH (08:19)
[2022-12-17] MEDS: CARIPRAZINE 1.5MG CAPSULE (VRAYLAR) PO SCH (08:19)
[2022-12-17] MEDS: hydroCHLOROthiazide 12.5 MG CAPSULE PO SCH (08:19)
[2022-12-17] MEDS: PRAZOSIN 1 MG CAP PO SCH ×2 (08:19→21:40)
[2022-12-17 08:22] VITALS: BP 133/80
[2022-12-17] MEDS ORDERED: NALTREXONE 50 MG TAB PO SCH (09:00)
[2022-12-17] MEDS: ACETAMINOPHEN TAB 650MG DOSE (2X325MG) PO PRN (15:53)
[2022-12-17] MEDS ORDERED: LORazepam 2 MG/ML 1ML VIAL IM STA (22:27)
[2022-12-17] MEDS ORDERED: diphenhydrAMINE 50MG/ML VIAL IM STA (22:27)
[2022-12-17] MEDS ORDERED: HALOPERIDOL 5MG/ML 1ML VIAL IM STA (22:27)
[2022-12-18] MEDS: PRAZOSIN 1 MG CAP PO SCH ×2 (09:03→19:53)
[2022-12-18] MEDS: VENLAFAXINE **XR** 75MG CAPSULE PO SCH (09:03)
[2022-12-18] MEDS: NALTREXONE 50 MG TAB PO SCH (09:04)
[2022-12-18] MEDS: CARIPRAZINE 1.5MG CAPSULE (VRAYLAR) PO SCH (09:04)
[2022-12-18] MEDS: hydroCHLOROthiazide 12.5 MG CAPSULE PO SCH (09:04)
[2022-12-18] MEDS ORDERED: TUBERCULIN PPD 5 UNITS/0.1 ML ID ONE (10:00)
[2022-12-18] MEDS: ACETAMINOPHEN TAB 650MG DOSE (2X325MG) PO PRN ×2 (10:17→19:51)
[2022-12-19 06:30] VITALS: BP 139/99
[2022-12-19] MEDS: VENLAFAXINE **XR** 75MG CAPSULE PO SCH (08:18)
[2022-12-19] MEDS: hydroCHLOROthiazide 12.5 MG CAPSULE PO SCH (08:20)
[2022-12-19] MEDS: PRAZOSIN 1 MG CAP PO SCH ×2 (08:20→21:19)
[2022-12-19] MEDS: CARIPRAZINE 1.5MG CAPSULE (VRAYLAR) PO SCH (08:20)
[2022-12-19] MEDS: NALTREXONE 50 MG TAB PO SCH (08:20)
[2022-12-19] MEDS: OLANZapine ORAL DISINTEGRATING TAB 5MG PO PRN (23:09)
[2022-12-19] MEDS: hydrOXYzine 50 MG TAB PO PRN (23:09)
[2022-12-19] MEDS: ACETAMINOPHEN TAB 650MG DOSE (2X325MG) PO PRN (23:10)
[2022-12-20 06:54] VITALS: BP 104/51
[2022-12-20] MEDS: hydroCHLOROthiazide 12.5 MG CAPSULE PO SCH (09:19)
[2022-12-20] MEDS: CARIPRAZINE 1.5MG CAPSULE (VRAYLAR) PO SCH (09:19)
[2022-12-20] MEDS: NALTREXONE 50 MG TAB PO SCH (09:19)
[2022-12-20] MEDS: VENLAFAXINE **XR** 75MG CAPSULE PO SCH (09:19)
[2022-12-20] MEDS: PRAZOSIN 1 MG CAP PO SCH ×2 (09:29→20:17)
[2022-12-20] MEDS ORDERED: PPD DOCUMENTATION ENTRY MISC XX ONE (10:00)
[2022-12-20] MEDS: traZODone 50 MG TAB PO PRN (22:15)
[2022-12-21 06:22] VITALS: BP 108/51
[2022-12-21] MEDS: NALTREXONE 50 MG TAB PO SCH (09:30)
[2022-12-21] MEDS: VENLAFAXINE **XR** 75MG CAPSULE PO SCH (09:30)
[2022-12-21] MEDS: hydroCHLOROthiazide 12.5 MG CAPSULE PO SCH (09:30)
[2022-12-21] MEDS: PRAZOSIN 1 MG CAP PO SCH ×2 (09:30→21:40)
[2022-12-21] MEDS: CARIPRAZINE 1.5MG CAPSULE (VRAYLAR) PO SCH (09:30)
[2022-12-22 06:06] VITALS: BP 135/68
[2022-12-22] MEDS: CARIPRAZINE 1.5MG CAPSULE (VRAYLAR) PO SCH (08:11)
[2022-12-22] MEDS: hydroCHLOROthiazide 12.5 MG CAPSULE PO SCH (08:11)
[2022-12-22] MEDS: NALTREXONE 50 MG TAB PO SCH (08:11)
[2022-12-22] MEDS: PRAZOSIN 1 MG CAP PO SCH ×2 (08:12→20:19)
[2022-12-22] MEDS: VENLAFAXINE **XR** 75MG CAPSULE PO SCH (08:12)
[2022-12-22 18:13] VITALS: BP 117/60
[2022-12-23 06:13] VITALS: BP 132/72
[2022-12-23 08:44] VITALS: BP 132/72
[2022-12-23] MEDS: NALTREXONE 50 MG TAB PO SCH (08:44)
[2022-12-23] MEDS: PRAZOSIN 1 MG CAP PO SCH (08:44)
[2022-12-23] MEDS: CARIPRAZINE 1.5MG CAPSULE (VRAYLAR) PO SCH (08:44)
[2022-12-23] MEDS: VENLAFAXINE **XR** 75MG CAPSULE PO SCH (08:44)
[2022-12-23] MEDS: hydroCHLOROthiazide 12.5 MG CAPSULE PO SCH (08:45)
[2022-12-23] MEDS ORDERED: NALT50TA4 PO (08:55)
[2022-12-23] MEDS ORDERED: VENL75CA47 PO (08:55)
[2022-12-23] MEDS ORDERED: VRAY1.5C PO (08:55)
[2022-12-23] MEDS ORDERED: MINI1CAP PO (08:55)
== END 2022-12-23 10:55 | disposition home or self-care (01) | DRG 753 ==
LOC: M ED 20:38 → M ED INP 12-09 13:11 → M PSY 12-09 14:50
PROVIDERS: ADMIT Psychiatry & Neurology Psychiatry; ATTEND Psychiatry & Neurology Psychiatry
DX: F31.30 Bipolar disorder, current episode depressed, mild or moderate severity, unspecified (principal); R45.851 Suicidal ideations; F43.10 Post-traumatic stress disorder, unspecified; F60.3 Borderline personality disorder; F60.7 Dependent personality disorder; I10 Essential (primary) hypertension; J45.909 Unspecified asthma, uncomplicated; K76.0 Fatty (change of) liver, not elsewhere classified; E66.01 Morbid (severe) obesity due to excess calories; F41.9 Anxiety disorder, unspecified; Z90.49 Acquired absence of other specified parts of digestive tract; Z90.79 Acquired absence of other genital organ(s); Z56.0 Unemployment, unspecified; Z20.822 Contact with and (suspected) exposure to COVID-19; Z79.899 Other long term (current) drug therapy; Z83.3 Family history of diabetes mellitus; Z62.810 Personal history of physical and sexual abuse in childhood; Z91.410 Personal history of adult physical and sexual abuse; Z62.811 Personal history of psychological abuse in childhood; Z78.1 Physical restraint status; Z91.52 Personal history of nonsuicidal self-harm

== ENCOUNTER → 2023-01-06 | Outpatient (REF) | payer MEDICAID, OTHER ==
[~2023-01-06] MED LIST changes: +VRAY1.5C PO
== END ==
LOC: M SFHCWAGY 09:54
PROVIDERS: ATTEND Nurse Practitioner Family
DX: N39.0 Urinary tract infection, site not specified (principal)

== ENCOUNTER 2023-01-23 18:23 | Emergency (ER) | payer MEDICAID, OTHER ==
[~2023-01-23] VITALS: Ht 160 cm; Wt 168.8 kg
[2023-01-23 18:25] VITALS: BP 137/77
[2023-01-23 19:26] LABS: AMPHETAMINES LEVEL URINE NEGATIVE (NEGATIVE); BARBITURATES URINE NEGATIVE (NEGATIVE); BENZODIAZEPINES URINE NEGATIVE (NEGATIVE); CANNABINOIDS URINE NEGATIVE (NEGATIVE); COCAINE METABOLITE URINE NEGATIVE (NEGATIVE); METHADONE URINE NEGATIVE (NEGATIVE); OPIATES URINE NEGATIVE (NEGATIVE); PHENCYCLIDINE URINE NEGATIVE (NEGATIVE)
[2023-01-23] MEDS ORDERED: PRAZ1CAP PO (20:04)
[2023-01-23] MEDS ORDERED: NALT50TA4 PO (20:04)
[2023-01-23] MEDS ORDERED: VRAY1.5C PO (20:04)
[2023-01-23] MEDS ORDERED: VENL75CA47 PO (20:04)
[2023-01-23] MEDS ORDERED: QUET50TA4 PO (20:05)
[2023-01-23] MEDS ORDERED: HOME MED LIST COMPLETE! XX SCH (20:10)
[2023-01-23 20:19] LABS: HEMOGLOBIN 12.6 g/dl (12.0-15.5); MEAN CORPUSCULAR HEMOGLOBIN 25.9 pg (27.0-33.0); MEAN CORPUSCULAR HGB CONC 30.7 g/dl (32.0-36.5); MEAN CORPUSCULAR VOLUME 84.2 fl (80.0-96.0); PLATELET COUNT, AUTOMATED 327 10^3/uL (150-450); RED BLOOD COUNT 4.87 10^6/uL (4.00-5.40); WHITE BLOOD COUNT 11.9 10^3/uL (4.0-10.0)
[2023-01-23 20:39] LABS: ETHYL ALCOHOL (ETHANOL) < 0.003 % (0.000-0.010); HCG, SERUM QUALITATIVE NEGATIVE (NEGATIVE)
[2023-01-23 20:40] LABS: ACETAMINOPHEN LEVEL < 2.0 UG/ML (10.0-20.0)
[2023-01-23 20:41] LABS: ALBUMIN 3.4 G/DL (3.2-5.2); ALKALINE PHOSPHATASE 100 U/L (46-116); ALT/SGPT 26 U/L (7.0-40); AST/SGOT 15 U/L (<34); BILIRUBIN,DIRECT < 0.1 MG/DL (<0.4); BILIRUBIN,TOTAL 0.3 MG/DL (0.3-1.2); BLOOD UREA NITROGEN 13 MG/DL (9-23); CARBON DIOXIDE LEVEL 29 MMOL/L (20-31); CHLORIDE LEVEL 105 MMOL/L (98-107); CREATININE FOR GFR 0.53 MG/DL (0.55-1.30); GLOMERULAR FILTRATION RATE > 60.0 (>60); GLUCOSE, FASTING 95 MG/DL (60-100); POTASSIUM SERUM 4.2 MMOL/L (3.5-5.1); SALICYLATE LEVEL < 3.0 MG/DL (<30); SODIUM LEVEL 140 MMOL/L (136-145); TOTAL PROTEIN 6.8 G/DL (5.7-8.2)
== END 2023-01-23 22:51 | disposition home or self-care (01) ==
LOC: M ED 18:23
DX: R45.851 Suicidal ideations (principal); F32.A Depression, unspecified; F31.9 Bipolar disorder, unspecified; Z79.811 Long term (current) use of aromatase inhibitors; Z79.899 Other long term (current) drug therapy

== ENCOUNTER 2023-02-24 21:43 | Emergency (ER) | payer MEDICAID, OTHER ==
[~2023-02-24] VITALS: Ht 160 cm; Wt 168.2 kg
[~2023-02-24 21:43] MED LIST changes: +QUET50TA4 PO
[2023-02-24] MEDS ORDERED: LORazepam 2 MG/ML 1ML VIAL IM STA (23:24)
[2023-02-24] MEDS ORDERED: HALOPERIDOL 5MG/ML 1ML VIAL IM ONE (23:25)
[2023-02-24] MEDS ORDERED: chlorproMAZINE INJ 50MG/2ML AMP IM ONE (23:25)
[2023-02-25 01:49] LABS: HEMOGLOBIN 12.3 g/dl (12.0-15.5); MEAN CORPUSCULAR HEMOGLOBIN 26.2 pg (27.0-33.0); MEAN CORPUSCULAR HGB CONC 31.5 g/dl (32.0-36.5); PLATELET COUNT, AUTOMATED 331 10^3/uL (150-450); WHITE BLOOD COUNT 13.5 10^3/uL (4.0-10.0)
[2023-02-25 02:16] LABS: ETHYL ALCOHOL (ETHANOL) 0.009 % (0.000-0.010)
[2023-02-25 02:17] LABS: ACETAMINOPHEN LEVEL < 2.0 UG/ML (10.0-20.0)
[2023-02-25 02:18] LABS: ALKALINE PHOSPHATASE 88 U/L (46-116); ALT/SGPT 21 U/L (7.0-40); AST/SGOT 10 U/L (<34); BILIRUBIN,DIRECT 0.1 MG/DL (<0.4); BILIRUBIN,TOTAL 0.3 MG/DL (0.3-1.2); BLOOD UREA NITROGEN 16 MG/DL (9-23); CARBON DIOXIDE LEVEL 27 MMOL/L (20-31); CHLORIDE LEVEL 105 MMOL/L (98-107); CREATININE FOR GFR 0.67 MG/DL (0.55-1.30); GLOMERULAR FILTRATION RATE > 60.0 (>60); GLUCOSE, FASTING 85 MG/DL (60-100); POTASSIUM SERUM 4.2 MMOL/L (3.5-5.1); SALICYLATE LEVEL < 3.0 MG/DL (<30); SODIUM LEVEL 139 MMOL/L (136-145); TOTAL PROTEIN 6.5 G/DL (5.7-8.2)
[2023-02-25 02:20] LABS: THYROID STIMULATING HORMONE 2.225 uIU/ML (0.55-4.78)
[2023-02-25 02:22] LABS: HCG, SERUM QUALITATIVE NEGATIVE (NEGATIVE)
[2023-02-25 04:06] LABS: AMPHETAMINES LEVEL URINE NEGATIVE (NEGATIVE); BARBITURATES URINE NEGATIVE (NEGATIVE); BENZODIAZEPINES URINE NEGATIVE (NEGATIVE); CANNABINOIDS URINE NEGATIVE (NEGATIVE); COCAINE METABOLITE URINE NEGATIVE (NEGATIVE); METHADONE URINE NEGATIVE (NEGATIVE); OPIATES URINE NEGATIVE (NEGATIVE); PHENCYCLIDINE URINE NEGATIVE (NEGATIVE)
[2023-02-25 13:43] VITALS: BP 139/68
== END 2023-02-25 14:22 | disposition home or self-care (01) ==
LOC: M ED 21:43
DX: F32.9 Major depressive disorder, single episode, unspecified (principal); J45.909 Unspecified asthma, uncomplicated; E66.9 Obesity, unspecified; K75.81 Nonalcoholic steatohepatitis (NASH); Z79.899 Other long term (current) drug therapy
CPT/HCPCS: 51701; 80048; 80076; 80143; 80307; 82077; 84443; 84703; 85027; 87635; 96372; 99285; J1630; J2060; J3230

== ENCOUNTER 2023-02-28 23:24 | Inpatient (IN) | payer MEDICAID ==
[~2023-02-28] VITALS: Ht 160 cm; Wt 168.2 kg
[2023-03-01 01:23] LABS: HEMATOCRIT 37.2 % (36.0-47.0); HEMOGLOBIN 11.5 g/dl (12.0-15.5); MEAN CORPUSCULAR HEMOGLOBIN 26.2 pg (27.0-33.0); MEAN CORPUSCULAR HGB CONC 30.9 g/dl (32.0-36.5); MEAN CORPUSCULAR VOLUME 84.7 fl (80.0-96.0); PLATELET COUNT, AUTOMATED 303 10^3/uL (150-450); RED BLOOD COUNT 4.39 10^6/uL (4.00-5.40); WHITE BLOOD COUNT 13.4 10^3/uL (4.0-10.0)
[2023-03-01 01:36] LABS: ETHYL ALCOHOL (ETHANOL) < 0.003 % (0.000-0.010)
[2023-03-01 01:38] LABS: ACETAMINOPHEN LEVEL < 2.0 UG/ML (10.0-20.0); ALBUMIN 2.8 G/DL (3.2-5.2); ALKALINE PHOSPHATASE 78 U/L (46-116); ALT/SGPT 23 U/L (7.0-40); AST/SGOT 9 U/L (<34); BILIRUBIN,DIRECT < 0.1 MG/DL (<0.4); BILIRUBIN,TOTAL 0.3 MG/DL (0.3-1.2); BLOOD UREA NITROGEN 12 MG/DL (9-23); CALCIUM LEVEL 8.4 MG/DL (8.5-10.1); CARBON DIOXIDE LEVEL 29 MMOL/L (20-31); CHLORIDE LEVEL 106 MMOL/L (98-107); GLOMERULAR FILTRATION RATE > 60.0 (>60); GLUCOSE, FASTING 108 MG/DL (60-100); SALICYLATE LEVEL < 3.0 MG/DL (<30); SODIUM LEVEL 140 MMOL/L (136-145); TOTAL PROTEIN 6.1 G/DL (5.7-8.2)
[2023-03-01 01:40] LABS: THYROID STIMULATING HORMONE 0.672 uIU/ML (0.55-4.78)
[2023-03-01 01:57] LABS: HCG, SERUM QUALITATIVE NEGATIVE (NEGATIVE)
[2023-03-01] MEDS ORDERED: VENLAFAXINE **XR** 75MG CAPSULE PO ONE (07:35)
[2023-03-01] MEDS ORDERED: CARIPRAZINE 1.5MG CAPSULE (VRAYLAR) PO ONE (07:35)
[2023-03-01] MEDS ORDERED: NALTREXONE 50 MG TAB PO ONE (07:35)
[2023-03-01] MEDS ORDERED: hydroCHLOROthiazide 12.5 MG CAPSULE PO ONE (07:35)
[2023-03-01 07:47] LABS: AMPHETAMINES LEVEL URINE NEGATIVE (NEGATIVE); BARBITURATES URINE NEGATIVE (NEGATIVE); BENZODIAZEPINES URINE NEGATIVE (NEGATIVE); CANNABINOIDS URINE NEGATIVE (NEGATIVE); COCAINE METABOLITE URINE NEGATIVE (NEGATIVE); METHADONE URINE NEGATIVE (NEGATIVE); OPIATES URINE NEGATIVE (NEGATIVE); PHENCYCLIDINE URINE NEGATIVE (NEGATIVE)
[2023-03-01] MEDS ORDERED: NOTE (12:59)
[2023-03-01] MEDS ORDERED: AMOX875T PO (12:59)
[2023-03-01] MEDS ORDERED: HOME MED LIST COMPLETE! XX SCH (13:05)
[2023-03-01] MEDS ORDERED: MAALOX 30 ML SUSP *UDC PO PRN (13:10)
[2023-03-01] MEDS ORDERED: diphenhydrAMINE 25MG CAP PO PRN (13:10)
[2023-03-01] MEDS ORDERED: traZODone 50 MG TAB PO PRN (13:10)
[2023-03-01] MEDS ORDERED: MOM 30ML SUSPENSION UDC PO PRN (13:10)
[2023-03-01 16:53] VITALS: BP 145/71
[2023-03-01] MEDS: NICOTINE 14 MG/24 HR TRANSDERMAL TD SCH (17:19)
[2023-03-01] MEDS: PRAZOSIN 1 MG CAP PO SCH ×2 (21:00→23:19)
[2023-03-01] MEDS: QUEtiapine FUMARATE 50MG TAB PO SCH ×2 (21:00→23:18)
[2023-03-02] MEDS: NALTREXONE 50 MG TAB PO SCH (09:00)
[2023-03-02] MEDS: VENLAFAXINE **XR** 75MG CAPSULE PO SCH (09:00)
[2023-03-02] MEDS: hydroCHLOROthiazide 12.5 MG CAPSULE PO SCH (09:00)
[2023-03-02] MEDS: VALSARTAN 40MG TABLET (DIOVAN) PO SCH (09:00)
[2023-03-02] MEDS: NICOTINE 14 MG/24 HR TRANSDERMAL TD SCH (09:00)
[2023-03-02] MEDS: CARIPRAZINE 1.5MG CAPSULE (VRAYLAR) PO SCH (09:00)
[2023-03-03] MEDS: VENLAFAXINE **XR** 75MG CAPSULE PO SCH (12:13)
[2023-03-03] MEDS: hydroCHLOROthiazide 12.5 MG CAPSULE PO SCH (12:13)
[2023-03-03] MEDS: NALTREXONE 50 MG TAB PO SCH (12:13)
[2023-03-03] MEDS: VALSARTAN 40MG TABLET (DIOVAN) PO SCH (12:14)
[2023-03-03] MEDS: NICOTINE 14 MG/24 HR TRANSDERMAL TD SCH (12:18)
[2023-03-03] MEDS: CARIPRAZINE 1.5MG CAPSULE (VRAYLAR) PO SCH (12:19)
[2023-03-03 17:24] VITALS: BP 141/79
[2023-03-03] MEDS: PRAZOSIN 1 MG CAP PO SCH (20:03)
[2023-03-03] MEDS: QUEtiapine FUMARATE 50MG TAB PO SCH (20:03)
[2023-03-04] MEDS: CARIPRAZINE 1.5MG CAPSULE (VRAYLAR) PO SCH (11:23)
[2023-03-04] MEDS: VENLAFAXINE **XR** 75MG CAPSULE PO SCH (11:24)
[2023-03-04] MEDS: NALTREXONE 50 MG TAB PO SCH (11:24)
[2023-03-04] MEDS: NICOTINE 14 MG/24 HR TRANSDERMAL TD SCH (11:29)
[2023-03-04] MEDS: hydroCHLOROthiazide 12.5 MG CAPSULE PO SCH (11:30)
[2023-03-04] MEDS: VALSARTAN 40MG TABLET (DIOVAN) PO SCH (11:30)
[2023-03-04] MEDS ORDERED: LORazepam 2 MG/ML 1ML VIAL IM STA (12:10)
[2023-03-04] MEDS ORDERED: diphenhydrAMINE 50MG/ML VIAL IM STA (12:10)
[2023-03-04] MEDS ORDERED: HALOPERIDOL 5MG/ML 1ML VIAL IM STA (12:10)
[2023-03-04] MEDS ORDERED: diphenhydrAMINE 50MG/ML VIAL IM ONE (12:15)
[2023-03-04] MEDS ORDERED: LORazepam 2 MG/ML 1ML VIAL IM ONE (12:15)
[2023-03-04] MEDS ORDERED: HALOPERIDOL 5MG/ML 1ML VIAL IM ONE (12:15)
[2023-03-04] MEDS: PRAZOSIN 1 MG CAP PO SCH (21:50)
[2023-03-04] MEDS: QUEtiapine FUMARATE 50MG TAB PO SCH (21:50)
[2023-03-05] MEDS: VENLAFAXINE **XR** 75MG CAPSULE PO SCH (09:00)
[2023-03-05] MEDS: NICOTINE 14 MG/24 HR TRANSDERMAL TD SCH (09:00)
[2023-03-05] MEDS: CARIPRAZINE 1.5MG CAPSULE (VRAYLAR) PO SCH (09:00)
[2023-03-05] MEDS: NALTREXONE 50 MG TAB PO SCH (09:00)
[2023-03-05] MEDS: VALSARTAN 40MG TABLET (DIOVAN) PO SCH (09:00)
[2023-03-05] MEDS: hydroCHLOROthiazide 12.5 MG CAPSULE PO SCH (09:00)
[2023-03-05] MEDS: PRAZOSIN 1 MG CAP PO SCH (21:00)
[2023-03-05] MEDS: QUEtiapine FUMARATE 50MG TAB PO SCH (21:00)
[2023-03-06 08:55] VITALS: BP 140/81
[2023-03-06] MEDS: VALSARTAN 40MG TABLET (DIOVAN) PO SCH (08:56)
[2023-03-06] MEDS: NALTREXONE 50 MG TAB PO SCH (08:56)
[2023-03-06] MEDS: hydroCHLOROthiazide 12.5 MG CAPSULE PO SCH (08:56)
[2023-03-06] MEDS: CARIPRAZINE 1.5MG CAPSULE (VRAYLAR) PO SCH (08:56)
[2023-03-06] MEDS: VENLAFAXINE **XR** 75MG CAPSULE PO SCH (08:56)
[2023-03-06] MEDS: NICOTINE 14 MG/24 HR TRANSDERMAL TD SCH (08:58)
[2023-03-06] MEDS: ACETAMINOPHEN TAB 650MG DOSE (2X325MG) PO PRN ×2 (09:43→19:51)
[2023-03-06] MEDS: IBUPROFEN 400MG TAB PO PRN ×2 (11:26→21:00)
[2023-03-06] MEDS: QUEtiapine FUMARATE 50MG TAB PO SCH (19:50)
[2023-03-06] MEDS: PRAZOSIN 1 MG CAP PO SCH (19:50)
[2023-03-07 10:50] VITALS: BP 136/78
[2023-03-07] MEDS: ACETAMINOPHEN TAB 650MG DOSE (2X325MG) PO PRN ×2 (10:51→17:38)
[2023-03-07] MEDS: VALSARTAN 40MG TABLET (DIOVAN) PO SCH (10:51)
[2023-03-07] MEDS: VENLAFAXINE **XR** 75MG CAPSULE PO SCH (10:51)
[2023-03-07] MEDS: CARIPRAZINE 1.5MG CAPSULE (VRAYLAR) PO SCH (10:52)
[2023-03-07] MEDS: NALTREXONE 50 MG TAB PO SCH (10:52)
[2023-03-07] MEDS: hydroCHLOROthiazide 12.5 MG CAPSULE PO SCH (10:54)
[2023-03-07] MEDS: NICOTINE 14 MG/24 HR TRANSDERMAL TD SCH (10:55)
[2023-03-07] MEDS: IBUPROFEN 400MG TAB PO PRN ×2 (16:27→22:17)
[2023-03-07 18:41] VITALS: BP 131/68
[2023-03-07] MEDS: QUEtiapine FUMARATE 50MG TAB PO SCH (20:31)
[2023-03-07] MEDS: PRAZOSIN 1 MG CAP PO SCH (20:31)
[2023-03-08] MEDS: NICOTINE 14 MG/24 HR TRANSDERMAL TD SCH (09:00)
[2023-03-08 10:14] VITALS: BP 141/88
[2023-03-08] MEDS: VALSARTAN 40MG TABLET (DIOVAN) PO SCH (10:14)
[2023-03-08] MEDS: hydroCHLOROthiazide 12.5 MG CAPSULE PO SCH (10:14)
[2023-03-08] MEDS: CARIPRAZINE 1.5MG CAPSULE (VRAYLAR) PO SCH (10:15)
[2023-03-08] MEDS: NALTREXONE 50 MG TAB PO SCH (10:15)
[2023-03-08] MEDS: VENLAFAXINE **XR** 75MG CAPSULE PO SCH (10:15)
[2023-03-08] MEDS ORDERED: DIOV40TA PO (10:49)
[2023-03-08] MEDS ORDERED: VENL75CA47 PO (10:49)
[2023-03-08] MEDS ORDERED: NALT50TA4 PO (10:49)
[2023-03-08] MEDS ORDERED: PRAZ1CAP PO (10:49)
[2023-03-08] MEDS ORDERED: QUET50TA4 PO (10:49)
[2023-03-08] MEDS ORDERED: HYDR12.55 PO (10:49)
[2023-03-08] MEDS ORDERED: VRAY1.5C PO (10:49)
== END 2023-03-08 14:00 | disposition home or self-care (01) | DRG 753 ==
LOC: M ED 23:24 → M ED INP 03-01 13:06 → M PSY 03-01 16:51
PROVIDERS: ADMIT Psychiatry & Neurology Psychiatry; ATTEND Psychiatry & Neurology Psychiatry
DX: F31.9 Bipolar disorder, unspecified (principal); I10 Essential (primary) hypertension; R45.851 Suicidal ideations; K76.0 Fatty (change of) liver, not elsewhere classified; F43.10 Post-traumatic stress disorder, unspecified; F60.3 Borderline personality disorder; F60.7 Dependent personality disorder; Z79.899 Other long term (current) drug therapy; J45.909 Unspecified asthma, uncomplicated; E66.9 Obesity, unspecified; F41.9 Anxiety disorder, unspecified; Z62.810 Personal history of physical and sexual abuse in childhood; Z91.410 Personal history of adult physical and sexual abuse

== ENCOUNTER 2023-03-12 19:32 | Inpatient (IN) | payer MEDICAID, OTHER ==
[~2023-03-12] VITALS: Ht 160 cm; Wt 167.3 kg
[~2023-03-12 19:32] MED LIST changes: +AMOX875T PO; +DIOV40TA PO; +NOTE
[2023-03-12 20:09] LABS: HEMATOCRIT 47.3 % (36.0-47.0); HEMOGLOBIN 14.4 g/dl (12.0-15.5); MEAN CORPUSCULAR HEMOGLOBIN 25.7 pg (27.0-33.0); MEAN CORPUSCULAR HGB CONC 30.4 g/dl (32.0-36.5); MEAN CORPUSCULAR VOLUME 84.3 fl (80.0-96.0); PLATELET COUNT, AUTOMATED 308 10^3/uL (150-450); RED BLOOD COUNT 5.61 10^6/uL (4.00-5.40); WHITE BLOOD COUNT 10.7 10^3/uL (4.0-10.0)
[2023-03-12 20:33] LABS: ETHYL ALCOHOL (ETHANOL) < 0.003 % (0.000-0.010)
[2023-03-12 20:35] LABS: ACETAMINOPHEN LEVEL < 2.0 UG/ML (10.0-20.0); ALBUMIN 3.5 G/DL (3.2-5.2); ALKALINE PHOSPHATASE 92 U/L (46-116); ALT/SGPT 34 U/L (7.0-40); AST/SGOT 18 U/L (<34); BILIRUBIN,DIRECT < 0.1 MG/DL (<0.4); BILIRUBIN,TOTAL 0.2 MG/DL (0.3-1.2); BLOOD UREA NITROGEN 8 MG/DL (9-23); CALCIUM LEVEL 9.1 MG/DL (8.5-10.1); CARBON DIOXIDE LEVEL 28 MMOL/L (20-31); CHLORIDE LEVEL 107 MMOL/L (98-107); CREATININE FOR GFR 0.52 MG/DL (0.55-1.30); GLOMERULAR FILTRATION RATE > 60.0 (>60); GLUCOSE, FASTING 118 MG/DL (60-100); SALICYLATE LEVEL < 3.0 MG/DL (<30); SODIUM LEVEL 141 MMOL/L (136-145); TOTAL PROTEIN 7.3 G/DL (5.7-8.2)
[2023-03-12 20:37] LABS: THYROID STIMULATING HORMONE 1.079 uIU/ML (0.55-4.78)
[2023-03-12] MEDS ORDERED: VRAY1.5C PO (20:44)
[2023-03-12] MEDS ORDERED: PRAZ1CAP PO (20:44)
[2023-03-12] MEDS ORDERED: NALT50TA4 PO (20:44)
[2023-03-12] MEDS ORDERED: VENL75CA2 PO (20:44)
[2023-03-12] MEDS ORDERED: HYDR12.55 PO (20:44)
[2023-03-12] MEDS ORDERED: VALS40TA9 PO (20:44)
[2023-03-12] MEDS ORDERED: QUET50TA4 PO (20:44)
[2023-03-12] MEDS ORDERED: HOME MED LIST COMPLETE! XX SCH (20:50)
[2023-03-12 21:15] LABS: HCG, SERUM QUALITATIVE NEGATIVE (NEGATIVE)
[2023-03-12 21:21] LABS: AMPHETAMINES LEVEL URINE NEGATIVE (NEGATIVE)
[2023-03-12 21:22] LABS: BARBITURATES URINE NEGATIVE (NEGATIVE); BENZODIAZEPINES URINE NEGATIVE (NEGATIVE); CANNABINOIDS URINE NEGATIVE (NEGATIVE); COCAINE METABOLITE URINE NEGATIVE (NEGATIVE); METHADONE URINE NEGATIVE (NEGATIVE); OPIATES URINE NEGATIVE (NEGATIVE); PHENCYCLIDINE URINE NEGATIVE (NEGATIVE)
[2023-03-12] MEDS ORDERED: traZODone 50 MG TAB PO PRN (22:05)
[2023-03-12] MEDS ORDERED: ACETAMINOPHEN TAB 650MG DOSE (2X325MG) PO PRN (22:05)
[2023-03-12] MEDS ORDERED: MAALOX 30 ML SUSP *UDC PO PRN (22:05)
[2023-03-12] MEDS ORDERED: MOM 30ML SUSPENSION UDC PO PRN (22:05)
[2023-03-12 22:37] VITALS: BP 133/62
[2023-03-12] MEDS: QUEtiapine FUMARATE 50MG TAB PO SCH (23:49)
[2023-03-12] MEDS: PRAZOSIN 1 MG CAP PO SCH (23:50)
[2023-03-13] MEDS: NALTREXONE 50 MG TAB PO SCH (08:23)
[2023-03-13] MEDS: CARIPRAZINE 1.5MG CAPSULE (VRAYLAR) PO SCH (08:23)
[2023-03-13] MEDS: VALSARTAN 40MG TABLET (DIOVAN) PO SCH (08:23)
[2023-03-13] MEDS: VENLAFAXINE **XR** 75MG CAPSULE PO SCH (08:23)
[2023-03-13] MEDS: hydroCHLOROthiazide 12.5 MG CAPSULE PO SCH (08:23)
[2023-03-13] MEDS ORDERED: QUEtiapine FUMARATE 50MG TAB PO SCH (21:00)
[2023-03-13] MEDS ORDERED: PRAZOSIN 1 MG CAP PO SCH (21:00)
[2023-03-13] MEDS: QUEtiapine FUMARATE 50MG TAB PO SCH (21:06)
[2023-03-13] MEDS: PRAZOSIN 1 MG CAP PO SCH (21:06)
[2023-03-14] MEDS: VENLAFAXINE **XR** 75MG CAPSULE PO SCH (09:30)
[2023-03-14] MEDS: VALSARTAN 40MG TABLET (DIOVAN) PO SCH (09:30)
[2023-03-14] MEDS: hydroCHLOROthiazide 12.5 MG CAPSULE PO SCH (09:30)
[2023-03-14] MEDS: NALTREXONE 50 MG TAB PO SCH (09:31)
[2023-03-14] MEDS: CARIPRAZINE 1.5MG CAPSULE (VRAYLAR) PO SCH (09:31)
[2023-03-14 15:42] VITALS: BP 136/74
[2023-03-14] MEDS: NICOTINE 14 MG/24 HR TRANSDERMAL TD SCH (18:05)
[2023-03-14] MEDS: QUEtiapine FUMARATE 50MG TAB PO SCH (21:02)
[2023-03-14] MEDS: PRAZOSIN 1 MG CAP PO SCH (21:02)
[2023-03-15] MEDS: CARIPRAZINE 1.5MG CAPSULE (VRAYLAR) PO SCH (09:00)
[2023-03-15] MEDS: VENLAFAXINE **XR** 75MG CAPSULE PO SCH (09:00)
[2023-03-15] MEDS: VALSARTAN 40MG TABLET (DIOVAN) PO SCH (09:00)
[2023-03-15] MEDS: NALTREXONE 50 MG TAB PO SCH (09:00)
[2023-03-15] MEDS: hydroCHLOROthiazide 12.5 MG CAPSULE PO SCH (09:00)
[2023-03-15] MEDS: NICOTINE 14 MG/24 HR TRANSDERMAL TD SCH ×2 (09:00→17:56)
[2023-03-15 18:51] VITALS: BP 136/76
[2023-03-15] MEDS: PRAZOSIN 1 MG CAP PO SCH ×2 (21:00→23:08)
[2023-03-15] MEDS: QUEtiapine FUMARATE 50MG TAB PO SCH ×2 (21:00→23:08)
[2023-03-16] MEDS: VALSARTAN 40MG TABLET (DIOVAN) PO SCH (09:04)
[2023-03-16] MEDS: VENLAFAXINE **XR** 75MG CAPSULE PO SCH (09:04)
[2023-03-16] MEDS: hydroCHLOROthiazide 12.5 MG CAPSULE PO SCH (09:04)
[2023-03-16] MEDS: NALTREXONE 50 MG TAB PO SCH (09:05)
[2023-03-16] MEDS: CARIPRAZINE 1.5MG CAPSULE (VRAYLAR) PO SCH (09:05)
[2023-03-16] MEDS: NICOTINE 14 MG/24 HR TRANSDERMAL TD SCH (09:06)
[2023-03-16 17:10] VITALS: BP 102/54
[2023-03-16] MEDS: QUEtiapine FUMARATE 50MG TAB PO SCH (21:15)
[2023-03-16] MEDS: PRAZOSIN 1 MG CAP PO SCH (21:15)
[2023-03-17 09:30] VITALS: BP 128/66
[2023-03-17] MEDS: VALSARTAN 40MG TABLET (DIOVAN) PO SCH (09:31)
[2023-03-17] MEDS: VENLAFAXINE **XR** 75MG CAPSULE PO SCH (09:31)
[2023-03-17] MEDS: CARIPRAZINE 1.5MG CAPSULE (VRAYLAR) PO SCH (09:31)
[2023-03-17] MEDS: NALTREXONE 50 MG TAB PO SCH (09:31)
[2023-03-17] MEDS: hydroCHLOROthiazide 12.5 MG CAPSULE PO SCH (09:31)
[2023-03-17] MEDS: NICOTINE 14 MG/24 HR TRANSDERMAL TD SCH (09:34)
[2023-03-17] MEDS: VENLAFAXINE **XR** 37.5 MG CAPSULE PO SCH (11:54)
[2023-03-17 18:18] VITALS: BP 129/79
[2023-03-17] MEDS: PRAZOSIN 1 MG CAP PO SCH (21:08)
[2023-03-17] MEDS: QUEtiapine FUMARATE 50MG TAB PO SCH (21:09)
[2023-03-18] MEDS: VENLAFAXINE **XR** 37.5 MG CAPSULE PO SCH (09:16)
[2023-03-18] MEDS: hydroCHLOROthiazide 12.5 MG CAPSULE PO SCH (09:16)
[2023-03-18] MEDS: CARIPRAZINE 1.5MG CAPSULE (VRAYLAR) PO SCH (09:16)
[2023-03-18] MEDS: VENLAFAXINE **XR** 75MG CAPSULE PO SCH (09:16)
[2023-03-18] MEDS: NALTREXONE 50 MG TAB PO SCH (09:17)
[2023-03-18] MEDS: VALSARTAN 40MG TABLET (DIOVAN) PO SCH (09:17)
[2023-03-18] MEDS: NICOTINE 14 MG/24 HR TRANSDERMAL TD SCH (09:19)
[2023-03-18 18:26] VITALS: BP 124/59
[2023-03-18] MEDS: QUEtiapine FUMARATE 50MG TAB PO SCH (21:01)
[2023-03-18] MEDS: PRAZOSIN 1 MG CAP PO SCH (21:01)
[2023-03-19] MEDS: CARIPRAZINE 1.5MG CAPSULE (VRAYLAR) PO SCH (10:01)
[2023-03-19] MEDS: NICOTINE 14 MG/24 HR TRANSDERMAL TD SCH (10:01)
[2023-03-19] MEDS: VENLAFAXINE **XR** 75MG CAPSULE PO SCH (10:02)
[2023-03-19] MEDS: VALSARTAN 40MG TABLET (DIOVAN) PO SCH (10:02)
[2023-03-19] MEDS: VENLAFAXINE **XR** 37.5 MG CAPSULE PO SCH (10:02)
[2023-03-19] MEDS: hydroCHLOROthiazide 12.5 MG CAPSULE PO SCH (10:03)
[2023-03-19] MEDS: NALTREXONE 50 MG TAB PO SCH (10:03)
[2023-03-19 18:06] VITALS: BP 120/60
[2023-03-19] MEDS: PRAZOSIN 1 MG CAP PO SCH (21:59)
[2023-03-19] MEDS: QUEtiapine FUMARATE 50MG TAB PO SCH (21:59)
[2023-03-20] MEDS: hydroCHLOROthiazide 12.5 MG CAPSULE PO SCH (09:10)
[2023-03-20] MEDS: VENLAFAXINE **XR** 37.5 MG CAPSULE PO SCH (09:11)
[2023-03-20] MEDS: VENLAFAXINE **XR** 75MG CAPSULE PO SCH (09:11)
[2023-03-20] MEDS: VALSARTAN 40MG TABLET (DIOVAN) PO SCH (09:11)
[2023-03-20] MEDS: NALTREXONE 50 MG TAB PO SCH (09:11)
[2023-03-20] MEDS: CARIPRAZINE 1.5MG CAPSULE (VRAYLAR) PO SCH (09:11)
[2023-03-20] MEDS: NICOTINE 14 MG/24 HR TRANSDERMAL TD SCH (09:14)
[2023-03-20 18:26] VITALS: BP 149/84
[2023-03-20] MEDS: QUEtiapine FUMARATE 50MG TAB PO SCH (20:31)
[2023-03-20] MEDS: PRAZOSIN 1 MG CAP PO SCH (20:31)
[2023-03-21 09:25] VITALS: BP 120/70
[2023-03-21] MEDS: CARIPRAZINE 1.5MG CAPSULE (VRAYLAR) PO SCH (09:35)
[2023-03-21] MEDS: VENLAFAXINE **XR** 75MG CAPSULE PO SCH (09:35)
[2023-03-21] MEDS: NALTREXONE 50 MG TAB PO SCH (09:35)
[2023-03-21] MEDS: VENLAFAXINE **XR** 37.5 MG CAPSULE PO SCH (09:36)
[2023-03-21] MEDS: VALSARTAN 40MG TABLET (DIOVAN) PO SCH (09:36)
[2023-03-21] MEDS: hydroCHLOROthiazide 12.5 MG CAPSULE PO SCH (09:36)
[2023-03-21] MEDS: NICOTINE 14 MG/24 HR TRANSDERMAL TD SCH (09:37)
[2023-03-21 17:29] VITALS: BP 130/65
[2023-03-21] MEDS: QUEtiapine FUMARATE 50MG TAB PO SCH (20:22)
[2023-03-21] MEDS: PRAZOSIN 1 MG CAP PO SCH (20:24)
[2023-03-22] MEDS: NICOTINE 14 MG/24 HR TRANSDERMAL TD SCH (09:00)
[2023-03-22] MEDS ORDERED: TRAZ-252 PO (09:50)
[2023-03-22] MEDS ORDERED: MINI1CAP PO (09:50)
[2023-03-22] MEDS ORDERED: VENL37.598 PO (09:50)
[2023-03-22] MEDS ORDERED: QUET50TA4 PO (09:50)
[2023-03-22] MEDS: NALTREXONE 50 MG TAB PO SCH (10:22)
[2023-03-22] MEDS: VENLAFAXINE **XR** 75MG CAPSULE PO SCH (10:22)
[2023-03-22] MEDS: VENLAFAXINE **XR** 37.5 MG CAPSULE PO SCH (10:22)
[2023-03-22] MEDS: CARIPRAZINE 1.5MG CAPSULE (VRAYLAR) PO SCH (10:22)
[2023-03-22] MEDS: hydroCHLOROthiazide 12.5 MG CAPSULE PO SCH (10:23)
[2023-03-22 10:53] VITALS: BP 157/101
[2023-03-22] MEDS: VALSARTAN 40MG TABLET (DIOVAN) PO SCH (10:53)
== END 2023-03-22 12:30 | disposition home or self-care (01) | DRG 754 ==
LOC: M ED 19:32 → M ED INP 22:05 → M PSY 22:21
PROVIDERS: ADMIT Psychiatry & Neurology Psychiatry; ATTEND Psychiatry & Neurology Psychiatry
DX: F32.9 Major depressive disorder, single episode, unspecified (principal); E66.01 Morbid (severe) obesity due to excess calories; R45.851 Suicidal ideations; F43.10 Post-traumatic stress disorder, unspecified; F60.7 Dependent personality disorder; F60.3 Borderline personality disorder; Z79.899 Other long term (current) drug therapy; I10 Essential (primary) hypertension; J45.909 Unspecified asthma, uncomplicated

== ENCOUNTER 2023-03-30 17:27 | Inpatient (IN) | payer MEDICAID, OTHER ==
[~2023-03-30] VITALS: Ht 160 cm; Wt 169.0 kg
[~2023-03-30 17:27] MED LIST changes: +VALS40TA9 PO; +VENL37.598 PO; +VENL75CA2 PO
[2023-03-30 21:55] LABS: AMPHETAMINES LEVEL URINE NEGATIVE (NEGATIVE); BARBITURATES URINE NEGATIVE (NEGATIVE); BENZODIAZEPINES URINE NEGATIVE (NEGATIVE); COCAINE METABOLITE URINE NEGATIVE (NEGATIVE); METHADONE URINE NEGATIVE (NEGATIVE); OPIATES URINE NEGATIVE (NEGATIVE); PHENCYCLIDINE URINE NEGATIVE (NEGATIVE)
[2023-03-30 21:56] LABS: CANNABINOIDS URINE NEGATIVE (NEGATIVE)
[2023-03-30 22:24] LABS: HEMATOCRIT 40.2 % (36.0-47.0); HEMOGLOBIN 12.6 g/dl (12.0-15.5); MEAN CORPUSCULAR HEMOGLOBIN 26.4 pg (27.0-33.0); MEAN CORPUSCULAR HGB CONC 31.3 g/dl (32.0-36.5); MEAN CORPUSCULAR VOLUME 84.1 fl (80.0-96.0); PLATELET COUNT, AUTOMATED 305 10^3/uL (150-450); RED BLOOD COUNT 4.78 10^6/uL (4.00-5.40); WHITE BLOOD COUNT 11.7 10^3/uL (4.0-10.0)
[2023-03-30] MEDS ORDERED: TRAZ-252 PO (22:28)
[2023-03-30] MEDS ORDERED: VENL37.52 PO (22:28)
[2023-03-30] MEDS ORDERED: HOME MED LIST COMPLETE! XX SCH (22:30)
[2023-03-30 22:48] LABS: ETHYL ALCOHOL (ETHANOL) < 0.003 % (0.000-0.010)
[2023-03-30 22:50] LABS: ACETAMINOPHEN LEVEL < 2.0 UG/ML (10.0-20.0); ALBUMIN 3.3 G/DL (3.2-5.2); ALKALINE PHOSPHATASE 83 U/L (46-116); ALT/SGPT 23 U/L (7.0-40); AST/SGOT 15 U/L (<34); BILIRUBIN,DIRECT < 0.1 MG/DL (<0.4); BILIRUBIN,TOTAL 0.3 MG/DL (0.3-1.2); BLOOD UREA NITROGEN 10 MG/DL (9-23); CALCIUM LEVEL 8.9 MG/DL (8.5-10.1); CARBON DIOXIDE LEVEL 28 MMOL/L (20-31); CHLORIDE LEVEL 105 MMOL/L (98-107); CREATININE FOR GFR 0.53 MG/DL (0.55-1.30); GLOMERULAR FILTRATION RATE > 60.0 (>60); GLUCOSE, FASTING 85 MG/DL (60-100); POTASSIUM SERUM 4.4 MMOL/L (3.5-5.1); SALICYLATE LEVEL < 3.0 MG/DL (<30); SODIUM LEVEL 138 MMOL/L (136-145); TOTAL PROTEIN 6.6 G/DL (5.7-8.2)
[2023-03-30 23:00] LABS: HCG, SERUM QUALITATIVE NEGATIVE (NEGATIVE)
[2023-03-31] MEDS: VALSARTAN 40MG TABLET (DIOVAN) PO SCH (09:00)
[2023-03-31] MEDS: hydroCHLOROthiazide 12.5 MG CAPSULE PO SCH (09:00)
[2023-03-31] MEDS ORDERED: MOM 30ML SUSPENSION UDC PO PRN (12:25)
[2023-03-31] MEDS ORDERED: traZODone 50 MG TAB PO PRN ×2 (12:25)
[2023-03-31] MEDS ORDERED: IBUPROFEN 400MG TAB PO PRN (12:25)
[2023-03-31] MEDS ORDERED: MAALOX 30 ML SUSP *UDC PO PRN (12:25)
[2023-03-31] MEDS ORDERED: ACETAMINOPHEN TAB 650MG DOSE (2X325MG) PO PRN (12:25)
[2023-03-31 15:02] VITALS: BP 130/70
[2023-03-31] MEDS: NALTREXONE 50 MG TAB PO SCH (16:49)
[2023-03-31] MEDS: VENLAFAXINE **XR** 37.5 MG CAPSULE PO SCH (16:49)
[2023-03-31] MEDS: VENLAFAXINE **XR** 75MG CAPSULE PO SCH (16:50)
[2023-03-31] MEDS: CARIPRAZINE 1.5MG CAPSULE (VRAYLAR) PO SCH (16:50)
[2023-03-31] MEDS: QUEtiapine FUMARATE 50MG TAB PO SCH (21:38)
[2023-03-31] MEDS: PRAZOSIN 1 MG CAP PO SCH (21:38)
[2023-04-01] MEDS: VENLAFAXINE **XR** 37.5 MG CAPSULE PO SCH (10:08)
[2023-04-01] MEDS: VENLAFAXINE **XR** 75MG CAPSULE PO SCH (10:09)
[2023-04-01] MEDS: NALTREXONE 50 MG TAB PO SCH (10:10)
[2023-04-01] MEDS: CARIPRAZINE 1.5MG CAPSULE (VRAYLAR) PO SCH (10:10)
[2023-04-01] MEDS: hydroCHLOROthiazide 12.5 MG CAPSULE PO SCH (10:10)
[2023-04-01] MEDS: VALSARTAN 40MG TABLET (DIOVAN) PO SCH (10:12)
[2023-04-01] MEDS ORDERED: ALBUTEROL SULFATE 2.5MG/0.5ML INH NEB SOLN INH PRN (11:55)
[2023-04-01] MEDS: QUEtiapine FUMARATE 50MG TAB PO SCH (21:43)
[2023-04-01] MEDS: PRAZOSIN 1 MG CAP PO SCH (21:43)
[2023-04-02 09:25] VITALS: BP 133/70
[2023-04-02] MEDS: VENLAFAXINE **XR** 37.5 MG CAPSULE PO SCH (09:44)
[2023-04-02] MEDS: VALSARTAN 40MG TABLET (DIOVAN) PO SCH (09:44)
[2023-04-02] MEDS: NALTREXONE 50 MG TAB PO SCH (09:44)
[2023-04-02] MEDS: CARIPRAZINE 1.5MG CAPSULE (VRAYLAR) PO SCH (09:45)
[2023-04-02] MEDS: hydroCHLOROthiazide 12.5 MG CAPSULE PO SCH (09:45)
[2023-04-02] MEDS: VENLAFAXINE **XR** 75MG CAPSULE PO SCH (09:45)
[2023-04-02 18:20] VITALS: BP 118/58
[2023-04-02] MEDS: QUEtiapine FUMARATE 50MG TAB PO SCH (21:00)
[2023-04-02] MEDS: PRAZOSIN 1 MG CAP PO SCH (21:00)
[2023-04-03 09:30] VITALS: BP 136/90
[2023-04-03] MEDS: hydroCHLOROthiazide 12.5 MG CAPSULE PO SCH (09:33)
[2023-04-03] MEDS: VENLAFAXINE **XR** 75MG CAPSULE PO SCH (09:33)
[2023-04-03] MEDS: VENLAFAXINE **XR** 37.5 MG CAPSULE PO SCH (09:33)
[2023-04-03] MEDS: NALTREXONE 50 MG TAB PO SCH (09:34)
[2023-04-03] MEDS: CARIPRAZINE 1.5MG CAPSULE (VRAYLAR) PO SCH (09:34)
[2023-04-03] MEDS: VALSARTAN 40MG TABLET (DIOVAN) PO SCH (09:34)
[2023-04-03 18:00] VITALS: BP 117/59
[2023-04-03] MEDS: PRAZOSIN 1 MG CAP PO SCH (21:36)
[2023-04-03] MEDS: QUEtiapine FUMARATE 50MG TAB PO SCH (21:36)
[2023-04-04 09:08] VITALS: BP 115/62
[2023-04-04] MEDS: VENLAFAXINE **XR** 37.5 MG CAPSULE PO SCH (09:19)
[2023-04-04] MEDS: hydroCHLOROthiazide 12.5 MG CAPSULE PO SCH (09:20)
[2023-04-04] MEDS: CARIPRAZINE 1.5MG CAPSULE (VRAYLAR) PO SCH (09:20)
[2023-04-04] MEDS: VENLAFAXINE **XR** 75MG CAPSULE PO SCH (09:20)
[2023-04-04] MEDS: VALSARTAN 40MG TABLET (DIOVAN) PO SCH (09:21)
[2023-04-04] MEDS: NALTREXONE 50 MG TAB PO SCH (09:21)
[2023-04-04 18:00] VITALS: BP 140/86
[2023-04-04] MEDS: QUEtiapine FUMARATE 50MG TAB PO SCH (21:30)
[2023-04-04] MEDS: PRAZOSIN 1 MG CAP PO SCH (21:36)
[2023-04-05] MEDS: NALTREXONE 50 MG TAB PO SCH (09:34)
[2023-04-05] MEDS: CARIPRAZINE 1.5MG CAPSULE (VRAYLAR) PO SCH (09:34)
[2023-04-05] MEDS: VENLAFAXINE **XR** 37.5 MG CAPSULE PO SCH (09:34)
[2023-04-05] MEDS: VENLAFAXINE **XR** 75MG CAPSULE PO SCH (09:34)
[2023-04-05] MEDS: hydroCHLOROthiazide 12.5 MG CAPSULE PO SCH (09:34)
[2023-04-05] MEDS: VALSARTAN 40MG TABLET (DIOVAN) PO SCH (09:35)
[2023-04-05 16:30] VITALS: BP 116/84
[2023-04-05] MEDS: QUEtiapine FUMARATE 50MG TAB PO SCH (21:08)
[2023-04-05] MEDS: PRAZOSIN 1 MG CAP PO SCH (21:08)
[2023-04-06 06:45] VITALS: BP 126/68
[2023-04-06] MEDS: NYSTATIN CREAM 15GM TOP SCH ×2 (09:00→21:00)
[2023-04-06 09:38] VITALS: BP 124/66
[2023-04-06] MEDS: VENLAFAXINE **XR** 37.5 MG CAPSULE PO SCH (09:39)
[2023-04-06] MEDS: VALSARTAN 40MG TABLET (DIOVAN) PO SCH (09:39)
[2023-04-06] MEDS: hydroCHLOROthiazide 12.5 MG CAPSULE PO SCH (09:39)
[2023-04-06] MEDS: VENLAFAXINE **XR** 75MG CAPSULE PO SCH (09:39)
[2023-04-06] MEDS: CARIPRAZINE 3MG CAPSULE (VRAYLAR) PO SCH (09:39)
[2023-04-06] MEDS: NALTREXONE 50 MG TAB PO SCH (09:40)
[2023-04-06] MEDS: PRAZOSIN 1 MG CAP PO SCH (21:21)
[2023-04-06] MEDS: QUEtiapine FUMARATE 50MG TAB PO SCH (21:21)
[2023-04-07] MEDS: NYSTATIN CREAM 15GM TOP SCH ×2 (09:00→21:00)
[2023-04-07 09:35] VITALS: BP 118/78
[2023-04-07] MEDS: VALSARTAN 40MG TABLET (DIOVAN) PO SCH (09:38)
[2023-04-07] MEDS: VENLAFAXINE **XR** 75MG CAPSULE PO SCH (09:38)
[2023-04-07] MEDS: CARIPRAZINE 3MG CAPSULE (VRAYLAR) PO SCH (09:38)
[2023-04-07] MEDS: NALTREXONE 50 MG TAB PO SCH (09:38)
[2023-04-07] MEDS: hydroCHLOROthiazide 12.5 MG CAPSULE PO SCH (09:38)
[2023-04-07] MEDS: QUEtiapine FUMARATE 50MG TAB PO SCH (21:49)
[2023-04-07] MEDS: PRAZOSIN 1 MG CAP PO SCH (21:52)
[2023-04-08 08:56] VITALS: BP 127/79
[2023-04-08] MEDS: CARIPRAZINE 3MG CAPSULE (VRAYLAR) PO SCH (08:56)
[2023-04-08] MEDS: hydroCHLOROthiazide 12.5 MG CAPSULE PO SCH (08:56)
[2023-04-08] MEDS: NALTREXONE 50 MG TAB PO SCH (08:57)
[2023-04-08] MEDS: VENLAFAXINE **XR** 75MG CAPSULE PO SCH (08:57)
[2023-04-08] MEDS: VALSARTAN 40MG TABLET (DIOVAN) PO SCH (08:57)
[2023-04-08] MEDS: NYSTATIN CREAM 15GM TOP SCH ×2 (08:59→20:33)
[2023-04-08 18:41] VITALS: BP 131/84
[2023-04-08] MEDS: PRAZOSIN 1 MG CAP PO SCH (20:32)
[2023-04-08] MEDS: QUEtiapine FUMARATE 50MG TAB PO SCH (20:33)
[2023-04-09] MEDS: NYSTATIN CREAM 15GM TOP SCH (09:00)
[2023-04-09 09:09] VITALS: BP 124/84
[2023-04-09] MEDS: VALSARTAN 40MG TABLET (DIOVAN) PO SCH (09:09)
[2023-04-09] MEDS: NALTREXONE 50 MG TAB PO SCH (09:09)
[2023-04-09] MEDS: VENLAFAXINE **XR** 75MG CAPSULE PO SCH (09:09)
[2023-04-09] MEDS: hydroCHLOROthiazide 12.5 MG CAPSULE PO SCH (09:09)
[2023-04-09] MEDS: CARIPRAZINE 3MG CAPSULE (VRAYLAR) PO SCH (09:09)
[2023-04-09] MEDS ORDERED: VENL75CA47 PO (10:34)
[2023-04-09] MEDS ORDERED: ALB2.5NEB INH (10:34)
[2023-04-09] MEDS ORDERED: VRAY3CAP PO (10:34)
[2023-04-09] MEDS ORDERED: NYST-13 TOP (10:34)
== END 2023-04-09 16:34 | disposition home or self-care (01) | DRG 754 ==
LOC: M ED 17:27 → M ED INP 03-31 12:21 → M PSY 03-31 16:08
PROVIDERS: ADMIT Student in an Organized Health Care Education/Training Program; ATTEND Psychiatry & Neurology Psychiatry
DX: F32.9 Major depressive disorder, single episode, unspecified (principal); F43.10 Post-traumatic stress disorder, unspecified; F60.3 Borderline personality disorder; F60.7 Dependent personality disorder; Z62.810 Personal history of physical and sexual abuse in childhood; R45.851 Suicidal ideations; F41.9 Anxiety disorder, unspecified; E66.01 Morbid (severe) obesity due to excess calories; F31.9 Bipolar disorder, unspecified; I10 Essential (primary) hypertension; J45.909 Unspecified asthma, uncomplicated; Z68.44 Body mass index [BMI] 60.0-69.9, adult; Z79.899 Other long term (current) drug therapy; R21 Rash and other nonspecific skin eruption

== ENCOUNTER 2023-06-19 20:41 | Inpatient (IN) | payer MEDICAID ==
[~2023-06-19] VITALS: Ht 160 cm; Wt 176.7 kg
[~2023-06-19 20:41] MED LIST changes: +ALB2.5NEB INH; +NYST-13 TOP; +VENL37.52 PO; +VRAY3CAP PO
[2023-06-19 21:37] LABS: HEMATOCRIT 37.4 % (36.0-47.0); HEMOGLOBIN 11.8 g/dl (12.0-15.5); MEAN CORPUSCULAR HEMOGLOBIN 26.3 pg (27.0-33.0); MEAN CORPUSCULAR HGB CONC 31.6 g/dl (32.0-36.5); MEAN CORPUSCULAR VOLUME 83.3 fl (80.0-96.0); PLATELET COUNT, AUTOMATED 276 10^3/uL (150-450); RED BLOOD COUNT 4.49 10^6/uL (4.00-5.40); WHITE BLOOD COUNT 10.8 10^3/uL (4.0-10.0)
[2023-06-19 22:05] LABS: ETHYL ALCOHOL (ETHANOL) < 0.003 % (0.000-0.010)
[2023-06-19 22:07] LABS: ACETAMINOPHEN LEVEL < 2.0 UG/ML (10.0-20.0); SALICYLATE LEVEL < 3.0 MG/DL (<30)
[2023-06-19 22:08] LABS: ALBUMIN 3.1 G/DL (3.2-5.2); ALKALINE PHOSPHATASE 85 U/L (46-116); ALT/SGPT 22 U/L (7.0-40); AST/SGOT < 8 U/L (<34); BILIRUBIN,DIRECT 0.1 MG/DL (<0.4); BILIRUBIN,TOTAL 0.4 MG/DL (0.3-1.2); BLOOD UREA NITROGEN 12 MG/DL (9-23); CALCIUM LEVEL 8.8 MG/DL (8.5-10.1); CARBON DIOXIDE LEVEL 29 MMOL/L (20-31); CHLORIDE LEVEL 104 MMOL/L (98-107); GLOMERULAR FILTRATION RATE > 60.0 (>60); GLUCOSE, FASTING 123 MG/DL (60-100); POTASSIUM SERUM 3.7 MMOL/L (3.5-5.1); SODIUM LEVEL 140 MMOL/L (136-145); TOTAL PROTEIN 6.6 G/DL (5.7-8.2)
[2023-06-19 22:14] LABS: THYROID STIMULATING HORMONE 1.404 uIU/ML (0.55-4.78)
[2023-06-19 22:50] LABS: HCG, SERUM QUALITATIVE NEGATIVE (NEGATIVE)
[2023-06-19] MEDS ORDERED: PRAZOSIN 1 MG CAP PO ONE (23:30)
[2023-06-19] MEDS ORDERED: QUEtiapine FUMARATE 50MG TAB PO ONE (23:30)
[2023-06-20] MEDS ORDERED: VRAY3CAP PO (00:18)
[2023-06-20] MEDS ORDERED: VENL75CA47 PO (00:18)
[2023-06-20] MEDS ORDERED: HOME MED LIST COMPLETE! XX SCH (00:20)
[2023-06-20 00:53] LABS: BARBITURATES URINE NEGATIVE (NEGATIVE); CANNABINOIDS URINE NEGATIVE (NEGATIVE); COCAINE METABOLITE URINE NEGATIVE (NEGATIVE); METHADONE URINE NEGATIVE (NEGATIVE); OPIATES URINE NEGATIVE (NEGATIVE); PHENCYCLIDINE URINE NEGATIVE (NEGATIVE)
[2023-06-20 00:54] LABS: AMPHETAMINES LEVEL URINE NEGATIVE (NEGATIVE); BENZODIAZEPINES URINE NEGATIVE (NEGATIVE)
[2023-06-21] MEDS ORDERED: traZODone 50 MG TAB PO PRN (13:45)
[2023-06-21] MEDS ORDERED: MOM 30ML SUSPENSION UDC PO PRN (13:45)
[2023-06-21] MEDS ORDERED: diphenhydrAMINE 25MG CAP PO PRN (13:45)
[2023-06-21] MEDS ORDERED: MAALOX 30 ML SUSP *UDC PO PRN (13:45)
[2023-06-21 14:45] VITALS: BP 125/80; TEMP 97.6; O2SAT 96
[2023-06-21] MEDS: VENLAFAXINE **XR** 75MG CAPSULE PO SCH (15:31)
[2023-06-21] MEDS: NALTREXONE 50 MG TAB PO SCH (15:31)
[2023-06-21] MEDS: CARIPRAZINE 3MG CAPSULE (VRAYLAR) PO SCH (15:31)
[2023-06-21] MEDS: hydroCHLOROthiazide 12.5 MG CAPSULE PO SCH (15:32)
[2023-06-21] MEDS: ACETAMINOPHEN TAB 650MG DOSE (2X325MG) PO PRN (15:48)
[2023-06-21 18:00] VITALS: BP 150/88; TEMP 96; O2SAT 100
[2023-06-21] MEDS: QUEtiapine FUMARATE 50MG TAB PO SCH (21:10)
[2023-06-21] MEDS: PRAZOSIN 1 MG CAP PO SCH (21:10)
[2023-06-22] MEDS: VENLAFAXINE **XR** 75MG CAPSULE PO SCH (09:55)
[2023-06-22] MEDS: NALTREXONE 50 MG TAB PO SCH (09:55)
[2023-06-22] MEDS: hydroCHLOROthiazide 12.5 MG CAPSULE PO SCH (09:55)
[2023-06-22] MEDS: CARIPRAZINE 3MG CAPSULE (VRAYLAR) PO SCH (09:55)
[2023-06-22 18:09] VITALS: BP 136/78; TEMP 96; O2SAT 100
[2023-06-22] MEDS: QUEtiapine FUMARATE 50MG TAB PO SCH (21:00)
[2023-06-22] MEDS: PRAZOSIN 1 MG CAP PO SCH (21:00)
[2023-06-23] MEDS: CARIPRAZINE 3MG CAPSULE (VRAYLAR) PO SCH (08:24)
[2023-06-23] MEDS: NALTREXONE 50 MG TAB PO SCH (08:24)
[2023-06-23] MEDS: hydroCHLOROthiazide 12.5 MG CAPSULE PO SCH (08:24)
[2023-06-23] MEDS: VENLAFAXINE **XR** 75MG CAPSULE PO SCH (08:24)
[2023-06-23] MEDS: ACETAMINOPHEN TAB 650MG DOSE (2X325MG) PO PRN ×2 (09:09→21:40)
[2023-06-23 17:21] VITALS: BP 152/81; TEMP 96.8; O2SAT 95
[2023-06-23] MEDS: QUEtiapine FUMARATE 50MG TAB PO SCH (20:51)
[2023-06-23] MEDS: PRAZOSIN 1 MG CAP PO SCH (20:56)
[2023-06-23] MEDS: IBUPROFEN 400MG TAB PO PRN (21:02)
[2023-06-24] MEDS: NALTREXONE 50 MG TAB PO SCH (09:13)
[2023-06-24] MEDS: hydroCHLOROthiazide 12.5 MG CAPSULE PO SCH (09:13)
[2023-06-24] MEDS: CARIPRAZINE 3MG CAPSULE (VRAYLAR) PO SCH (09:13)
[2023-06-24] MEDS: VENLAFAXINE **XR** 75MG CAPSULE PO SCH (09:14)
[2023-06-24] MEDS: ACETAMINOPHEN TAB 650MG DOSE (2X325MG) PO PRN (15:24)
[2023-06-24] MEDS: IBUPROFEN 400MG TAB PO PRN (16:04)
[2023-06-24] MEDS: QUEtiapine FUMARATE 50MG TAB PO SCH (21:20)
[2023-06-24 21:21] VITALS: BP 146/73
[2023-06-24] MEDS: PRAZOSIN 1 MG CAP PO SCH (21:21)
[2023-06-25] MEDS: VENLAFAXINE **XR** 75MG CAPSULE PO SCH (08:44)
[2023-06-25] MEDS: NALTREXONE 50 MG TAB PO SCH (08:45)
[2023-06-25] MEDS: CARIPRAZINE 3MG CAPSULE (VRAYLAR) PO SCH (08:45)
[2023-06-25] MEDS: hydroCHLOROthiazide 12.5 MG CAPSULE PO SCH (08:45)
[2023-06-25] MEDS ORDERED: QUET50TA4 PO (10:55)
[2023-06-25] MEDS ORDERED: NALT50TA4 PO (10:55)
[2023-06-25] MEDS ORDERED: PRAZ1CAP PO (10:55)
[2023-06-25] MEDS ORDERED: VRAY3CAP PO (10:55)
[2023-06-25] MEDS ORDERED: VENL75CA47 PO (10:55)
== END 2023-06-25 11:10 | disposition home or self-care (01) | DRG 751 ==
LOC: M ED 20:41 → M ED INP 06-21 13:43 → M PSY 06-21 14:37
PROVIDERS: ADMIT Student in an Organized Health Care Education/Training Program; ATTEND Student in an Organized Health Care Education/Training Program
DX: F33.1 Major depressive disorder, recurrent, moderate (principal); F60.3 Borderline personality disorder; F60.7 Dependent personality disorder; F43.10 Post-traumatic stress disorder, unspecified; I10 Essential (primary) hypertension; J45.909 Unspecified asthma, uncomplicated; E66.01 Morbid (severe) obesity due to excess calories; Z83.3 Family history of diabetes mellitus; Z91.51 Personal history of suicidal behavior; Z62.811 Personal history of psychological abuse in childhood; Z62.812 Personal history of neglect in childhood; Z91.411 Personal history of adult psychological abuse; Z79.899 Other long term (current) drug therapy; Z20.822 Contact with and (suspected) exposure to COVID-19; Z90.49 Acquired absence of other specified parts of digestive tract; Z68.44 Body mass index [BMI] 60.0-69.9, adult

== ENCOUNTER 2023-06-26 23:10 | Inpatient (IN) | payer MEDICAID, OTHER ==
[~2023-06-26] VITALS: Ht 157.5 cm; Wt 172.7 kg
[2023-06-27 01:09] LABS: ETHYL ALCOHOL (ETHANOL) < 0.003 % (0.000-0.010)
[2023-06-27 01:11] LABS: ACETAMINOPHEN LEVEL < 2.0 UG/ML (10.0-20.0); ALBUMIN 3.4 G/DL (3.2-5.2); ALKALINE PHOSPHATASE 82 U/L (46-116); ALT/SGPT 44 U/L (7.0-40); AST/SGOT 20 U/L (<34); BILIRUBIN,DIRECT 0.1 MG/DL (<0.4); BILIRUBIN,TOTAL 0.3 MG/DL (0.3-1.2); BLOOD UREA NITROGEN 11 MG/DL (9-23); CALCIUM LEVEL 9.4 MG/DL (8.5-10.1); CARBON DIOXIDE LEVEL 28 MMOL/L (20-31); CHLORIDE LEVEL 104 MMOL/L (98-107); CREATININE FOR GFR 0.47 MG/DL (0.55-1.30); GLOMERULAR FILTRATION RATE > 60.0 (>60); GLUCOSE, FASTING 104 MG/DL (60-100); POTASSIUM SERUM 3.8 MMOL/L (3.5-5.1); SALICYLATE LEVEL < 3.0 MG/DL (<30); SODIUM LEVEL 142 MMOL/L (136-145); TOTAL PROTEIN 6.9 G/DL (5.7-8.2)
[2023-06-27 01:13] LABS: HCG, SERUM QUALITATIVE NEGATIVE (NEGATIVE)
[2023-06-27 01:14] LABS: HEMATOCRIT 40.4 % (36.0-47.0); HEMOGLOBIN 12.5 g/dl (12.0-15.5); MEAN CORPUSCULAR HEMOGLOBIN 26.2 pg (27.0-33.0); MEAN CORPUSCULAR HGB CONC 30.9 g/dl (32.0-36.5); MEAN CORPUSCULAR VOLUME 84.5 fl (80.0-96.0); PLATELET COUNT, AUTOMATED 275 10^3/uL (150-450); RED BLOOD COUNT 4.78 10^6/uL (4.00-5.40); THYROID STIMULATING HORMONE 1.505 uIU/ML (0.55-4.78)
[2023-06-27] MEDS ORDERED: HYDR12.55 PO (05:56)
[2023-06-27] MEDS ORDERED: PRAZ2CAP PO (05:56)
[2023-06-27] MEDS ORDERED: NALT50TA4 PO (05:56)
[2023-06-27] MEDS ORDERED: VRAY3CAP PO (05:56)
[2023-06-27] MEDS ORDERED: QUET50TA4 PO (05:57)
[2023-06-27] MEDS ORDERED: EFFE75CA2 PO (05:57)
[2023-06-27] MEDS ORDERED: HOME MED LIST COMPLETE! XX SCH (06:00)
[2023-06-27] MEDS ORDERED: CARIPRAZINE 3MG CAPSULE (VRAYLAR) PO SCH (09:00)
[2023-06-27] MEDS ORDERED: VENLAFAXINE **XR** 75MG CAPSULE PO SCH (09:00)
[2023-06-27] MEDS ORDERED: hydroCHLOROthiazide 12.5 MG CAPSULE PO SCH (09:00)
[2023-06-27] MEDS ORDERED: MAALOX 30 ML SUSP *UDC PO PRN (09:10)
[2023-06-27] MEDS ORDERED: traZODone 50 MG TAB PO PRN (09:10)
[2023-06-27] MEDS ORDERED: MOM 30ML SUSPENSION UDC PO PRN (09:10)
[2023-06-27] MEDS ORDERED: diphenhydrAMINE 25MG CAP PO PRN (09:10)
[2023-06-27 11:15] VITALS: BP 141/70; TEMP 97.6; O2SAT 96
[2023-06-27 18:41] VITALS: BP 150/90; TEMP 96.8; O2SAT 100
[2023-06-27] MEDS: QUEtiapine FUMARATE 50MG TAB PO SCH (20:50)
[2023-06-27] MEDS: PRAZOSIN 1 MG CAP PO SCH (20:51)
[2023-06-27] MEDS ORDERED: PRAZOSIN 1 MG CAP PO SCH (21:00)
[2023-06-27] MEDS ORDERED: QUEtiapine FUMARATE 50MG TAB PO SCH (21:00)
[2023-06-28] MEDS: CARIPRAZINE 3MG CAPSULE (VRAYLAR) PO SCH (09:00)
[2023-06-28] MEDS: NALTREXONE 50 MG TAB PO SCH (09:00)
[2023-06-28] MEDS: VENLAFAXINE **XR** 75MG CAPSULE PO SCH (09:00)
[2023-06-28] MEDS: ACETAMINOPHEN TAB 650MG DOSE (2X325MG) PO PRN (18:03)
[2023-06-28 18:15] VITALS: BP 132/88; TEMP 97.6; O2SAT 98
[2023-06-28] MEDS: IBUPROFEN 400MG TAB PO PRN (19:41)
[2023-06-28 20:41] VITALS: BP 144/80
[2023-06-28] MEDS: QUEtiapine FUMARATE 50MG TAB PO SCH (20:44)
[2023-06-28] MEDS: PRAZOSIN 1 MG CAP PO SCH (20:44)
[2023-06-28] MEDS ORDERED: LORazepam 2 MG TAB PO ONE (21:55)
[2023-06-28] MEDS ORDERED: diphenhydrAMINE 50MG CAP PO ONE (21:55)
[2023-06-29] MEDS: **PENDING PPD ENTRY XX SCH (09:00)
[2023-06-29] MEDS: CARIPRAZINE 3MG CAPSULE (VRAYLAR) PO SCH (12:52)
[2023-06-29] MEDS: NALTREXONE 50 MG TAB PO SCH (12:53)
[2023-06-29] MEDS: VENLAFAXINE **XR** 75MG CAPSULE PO SCH (12:53)
[2023-06-29] MEDS: QUEtiapine FUMARATE 50MG TAB PO SCH (21:00)
[2023-06-29] MEDS: PRAZOSIN 1 MG CAP PO SCH (21:00)
[2023-06-30] MEDS: **PENDING PPD ENTRY XX SCH (09:00)
[2023-06-30] MEDS: CARIPRAZINE 3MG CAPSULE (VRAYLAR) PO SCH (09:58)
[2023-06-30] MEDS: NALTREXONE 50 MG TAB PO SCH (09:58)
[2023-06-30] MEDS: VENLAFAXINE **XR** 75MG CAPSULE PO SCH (09:58)
[2023-06-30] MEDS ORDERED: TUBERCULIN PPD 5 UNITS/0.1 ML ID ONE (10:00)
[2023-06-30] MEDS: ACETAMINOPHEN TAB 650MG DOSE (2X325MG) PO PRN (16:49)
[2023-06-30 18:32] VITALS: BP 150/79; TEMP 96.9
[2023-06-30] MEDS: QUEtiapine FUMARATE 50MG TAB PO SCH (21:00)
[2023-06-30] MEDS: PRAZOSIN 1 MG CAP PO SCH (21:00)
[2023-07-01] MEDS: **PENDING PPD ENTRY XX SCH (09:00)
[2023-07-01] MEDS: VENLAFAXINE **XR** 75MG CAPSULE PO SCH (09:10)
[2023-07-01] MEDS: CARIPRAZINE 3MG CAPSULE (VRAYLAR) PO SCH (09:10)
[2023-07-01] MEDS: NALTREXONE 50 MG TAB PO SCH (09:10)
[2023-07-01] MEDS ORDERED: PPD DOCUMENTATION ENTRY MISC XX SCH (10:00)
[2023-07-01] MEDS: ACETAMINOPHEN TAB 650MG DOSE (2X325MG) PO PRN ×2 (10:13→22:16)
[2023-07-01] MEDS: IBUPROFEN 400MG TAB PO PRN (17:54)
[2023-07-01 18:00] VITALS: BP 150/80; TEMP 97.9
[2023-07-01 20:33] VITALS: BP 125/60
[2023-07-01] MEDS: PRAZOSIN 1 MG CAP PO SCH (20:33)
[2023-07-02] MEDS: CARIPRAZINE 3MG CAPSULE (VRAYLAR) PO SCH (09:26)
[2023-07-02] MEDS: NALTREXONE 50 MG TAB PO SCH (09:26)
[2023-07-02] MEDS: VENLAFAXINE **XR** 75MG CAPSULE PO SCH (09:27)
== END 2023-07-02 16:29 | disposition home or self-care (01) | DRG 751 ==
LOC: M ED 23:10 → M ED INP 06-27 09:09 → M PSY 06-27 11:15
PROVIDERS: ADMIT Psychiatry & Neurology Psychiatry; ATTEND Student in an Organized Health Care Education/Training Program
DX: F33.1 Major depressive disorder, recurrent, moderate (principal); Z68.44 Body mass index [BMI] 60.0-69.9, adult; R45.851 Suicidal ideations; E66.01 Morbid (severe) obesity due to excess calories; F43.10 Post-traumatic stress disorder, unspecified; F60.3 Borderline personality disorder; F60.7 Dependent personality disorder; I10 Essential (primary) hypertension; J45.909 Unspecified asthma, uncomplicated; Z83.3 Family history of diabetes mellitus; Z91.51 Personal history of suicidal behavior; Z79.899 Other long term (current) drug therapy; F41.9 Anxiety disorder, unspecified; Z90.49 Acquired absence of other specified parts of digestive tract; Z90.79 Acquired absence of other genital organ(s); Z62.811 Personal history of psychological abuse in childhood; Z62.812 Personal history of neglect in childhood

== ENCOUNTER 2023-07-04 21:05 | Emergency (ER) | payer MEDICAID, OTHER ==
[~2023-07-04] VITALS: Ht 160 cm; Wt 170.0 kg
[~2023-07-04 21:05] MED LIST changes: +EFFE75CA2 PO
[2023-07-04 22:11] LABS: HEMATOCRIT 44.7 % (36.0-47.0); HEMOGLOBIN 14.1 g/dl (12.0-15.5); MEAN CORPUSCULAR HEMOGLOBIN 26.4 pg (27.0-33.0); MEAN CORPUSCULAR HGB CONC 31.5 g/dl (32.0-36.5); MEAN CORPUSCULAR VOLUME 83.6 fl (80.0-96.0); PLATELET COUNT, AUTOMATED 301 10^3/uL (150-450); RED BLOOD COUNT 5.35 10^6/uL (4.00-5.40); WHITE BLOOD COUNT 9.9 10^3/uL (4.0-10.0)
[2023-07-04] MEDS ORDERED: HOME MED LIST COMPLETE! XX SCH (22:20)
[2023-07-04 22:43] LABS: HCG, SERUM QUALITATIVE NEGATIVE (NEGATIVE)
[2023-07-04 22:46] LABS: ETHYL ALCOHOL (ETHANOL) < 0.003 % (0.000-0.010)
[2023-07-04 22:48] LABS: ACETAMINOPHEN LEVEL < 2.0 UG/ML (10.0-20.0); ALBUMIN 3.7 G/DL (3.2-5.2); ALKALINE PHOSPHATASE 101 U/L (46-116); ALT/SGPT 40 U/L (7.0-40); AST/SGOT 15 U/L (<34); BILIRUBIN,DIRECT 0.1 MG/DL (<0.4); BILIRUBIN,TOTAL 0.3 MG/DL (0.3-1.2); BLOOD UREA NITROGEN 11 MG/DL (9-23); CALCIUM LEVEL 9.6 MG/DL (8.5-10.1); CARBON DIOXIDE LEVEL 29 MMOL/L (20-31); CHLORIDE LEVEL 104 MMOL/L (98-107); CREATININE FOR GFR 0.53 MG/DL (0.55-1.30); GLOMERULAR FILTRATION RATE > 60.0 (>60); GLUCOSE, FASTING 102 MG/DL (60-100); POTASSIUM SERUM 4.1 MMOL/L (3.5-5.1); SALICYLATE LEVEL < 3.0 MG/DL (<30); SODIUM LEVEL 140 MMOL/L (136-145); TOTAL PROTEIN 7.7 G/DL (5.7-8.2)
[2023-07-04 22:52] LABS: THYROID STIMULATING HORMONE 0.928 uIU/ML (0.55-4.78)
[2023-07-04 23:12] LABS: AMPHETAMINES LEVEL URINE NEGATIVE (NEGATIVE); BARBITURATES URINE NEGATIVE (NEGATIVE)
[2023-07-04 23:13] LABS: BENZODIAZEPINES URINE NEGATIVE (NEGATIVE); CANNABINOIDS URINE NEGATIVE (NEGATIVE); COCAINE METABOLITE URINE NEGATIVE (NEGATIVE); METHADONE URINE NEGATIVE (NEGATIVE); OPIATES URINE NEGATIVE (NEGATIVE); PHENCYCLIDINE URINE NEGATIVE (NEGATIVE)
[2023-07-05] MEDS ORDERED: NALTREXONE 50 MG TAB PO SCH (09:00)
[2023-07-05] MEDS ORDERED: VENLAFAXINE **XR** 75MG CAPSULE PO SCH (09:00)
[2023-07-05] MEDS ORDERED: hydroCHLOROthiazide 12.5 MG CAPSULE PO SCH (09:00)
[2023-07-05] MEDS ORDERED: CARIPRAZINE 3MG CAPSULE (VRAYLAR) PO SCH (09:00)
[2023-07-05 09:23] VITALS: BP 118/71; TEMP 97.2; O2SAT 96
[2023-07-05] MEDS ORDERED: PRAZOSIN 1 MG CAP PO SCH (21:00)
== END 2023-07-05 15:45 | disposition home or self-care (01) ==
LOC: M ED 21:05
DX: F32.A Depression, unspecified (principal); F31.9 Bipolar disorder, unspecified; Z79.52 Long term (current) use of systemic steroids; Z79.899 Other long term (current) drug therapy

== ENCOUNTER 2023-07-06 15:30 | Inpatient (IN) | payer MEDICAID, OTHER ==
[~2023-07-06] VITALS: Ht 162.6 cm; Wt 165.1 kg
[~2023-07-06 15:30] MED LIST changes: +LORA-1041 PO; -LORA-674 PO
[2023-07-06 16:28] LABS: HEMATOCRIT 41.5 % (36.0-47.0); HEMOGLOBIN 12.9 g/dl (12.0-15.5); MEAN CORPUSCULAR HEMOGLOBIN 26.2 pg (27.0-33.0); MEAN CORPUSCULAR HGB CONC 31.1 g/dl (32.0-36.5); MEAN CORPUSCULAR VOLUME 84.2 fl (80.0-96.0); PLATELET COUNT, AUTOMATED 291 10^3/uL (150-450); RED BLOOD COUNT 4.93 10^6/uL (4.00-5.40); WHITE BLOOD COUNT 8.6 10^3/uL (4.0-10.0)
[2023-07-06 16:49] LABS: ETHYL ALCOHOL (ETHANOL) 0.004 % (0.000-0.010); HCG, SERUM QUALITATIVE NEGATIVE (NEGATIVE)
[2023-07-06 16:50] LABS: SALICYLATE LEVEL < 3.0 MG/DL (<30)
[2023-07-06 16:54] LABS: ALBUMIN 3.5 G/DL (3.2-5.2); ALKALINE PHOSPHATASE 92 U/L (46-116); ALT/SGPT 38 U/L (7.0-40); AST/SGOT 15 U/L (<34); BILIRUBIN,DIRECT 0.2 MG/DL (<0.4); BILIRUBIN,TOTAL 0.5 MG/DL (0.3-1.2); BLOOD UREA NITROGEN 16 MG/DL (9-23); CARBON DIOXIDE LEVEL 26 MMOL/L (20-31); CHLORIDE LEVEL 104 MMOL/L (98-107); CREATININE FOR GFR 0.56 MG/DL (0.55-1.30); GLOMERULAR FILTRATION RATE > 60.0 (>60); GLUCOSE, FASTING 103 MG/DL (60-100); POTASSIUM SERUM 4.3 MMOL/L (3.5-5.1); SODIUM LEVEL 139 MMOL/L (136-145); TOTAL PROTEIN 7.1 G/DL (5.7-8.2)
[2023-07-06 22:48] LABS: AMPHETAMINES LEVEL URINE NEGATIVE (NEGATIVE); BARBITURATES URINE NEGATIVE (NEGATIVE); BENZODIAZEPINES URINE NEGATIVE (NEGATIVE); CANNABINOIDS URINE NEGATIVE (NEGATIVE); COCAINE METABOLITE URINE NEGATIVE (NEGATIVE); METHADONE URINE NEGATIVE (NEGATIVE); PHENCYCLIDINE URINE NEGATIVE (NEGATIVE)
[2023-07-06 23:03] LABS: OPIATES URINE NEGATIVE (NEGATIVE)
[2023-07-07] MEDS ORDERED: ALBU2.5V10 INH (00:12)
[2023-07-07] MEDS ORDERED: PRAZ1CAP46 PO (00:12)
[2023-07-07] MEDS ORDERED: VRAY6CAP PO (00:12)
[2023-07-07] MEDS ORDERED: HOME MED LIST COMPLETE! XX SCH (00:15)
[2023-07-07] MEDS: VENLAFAXINE **XR** 75MG CAPSULE PO SCH (08:20)
[2023-07-07] MEDS: CARIPRAZINE 3MG CAPSULE (VRAYLAR) PO SCH (10:35)
[2023-07-07] MEDS ORDERED: MAALOX 30 ML SUSP *UDC PO PRN (13:15)
[2023-07-07] MEDS ORDERED: MOM 30ML SUSPENSION UDC PO PRN (13:15)
[2023-07-07] MEDS ORDERED: PRAZOSIN 1 MG CAP PO SCH (21:00)
[2023-07-07 21:40] VITALS: BP 149/81; TEMP 98.3; O2SAT 95
[2023-07-07] MEDS: diphenhydrAMINE 25MG CAP PO PRN (23:53)
[2023-07-07] MEDS: traZODone 50 MG TAB PO PRN (23:53)
[2023-07-08] MEDS: IBUPROFEN 400MG TAB PO PRN (00:21)
[2023-07-08] MEDS: CARIPRAZINE 3MG CAPSULE (VRAYLAR) PO SCH (08:50)
[2023-07-08] MEDS: VENLAFAXINE **XR** 75MG CAPSULE PO SCH (08:50)
[2023-07-08] MEDS ORDERED: ALBUTEROL SULFATE 2.5MG/0.5ML INH NEB SOLN INH PRN (11:50)
[2023-07-08] MEDS: hydroCHLOROthiazide 12.5 MG CAPSULE PO SCH (12:28)
[2023-07-08 18:39] VITALS: BP 139/82; TEMP 97.2; O2SAT 96
[2023-07-08] MEDS: diphenhydrAMINE 25MG CAP PO PRN (18:56)
[2023-07-09] MEDS: hydroCHLOROthiazide 12.5 MG CAPSULE PO SCH (09:26)
[2023-07-09] MEDS: VENLAFAXINE **XR** 75MG CAPSULE PO SCH (12:38)
[2023-07-09 20:32] VITALS: BP 136/86; TEMP 97.6
[2023-07-10] MEDS: VENLAFAXINE **XR** 75MG CAPSULE PO SCH (09:15)
[2023-07-10] MEDS: hydroCHLOROthiazide 12.5 MG CAPSULE PO SCH (09:15)
[2023-07-10] MEDS: ACETAMINOPHEN TAB 650MG DOSE (2X325MG) PO PRN (11:33)
[2023-07-10] MEDS: IBUPROFEN 400MG TAB PO PRN (12:02)
[2023-07-10 16:05] VITALS: BP 138/83; TEMP 96.8; O2SAT 97
[2023-07-10] MEDS: LURASIDONE HCL 40MG TAB (LATUDA) PO SCH (17:57)
[2023-07-10] MEDS: PRAZOSIN 1 MG CAP PO SCH (21:43)
[2023-07-11] MEDS: ACETAMINOPHEN TAB 650MG DOSE (2X325MG) PO PRN ×2 (00:04→17:15)
[2023-07-11] MEDS: traZODone 50 MG TAB PO PRN ×2 (00:08→23:40)
[2023-07-11] MEDS: diphenhydrAMINE 25MG CAP PO PRN (00:34)
[2023-07-11] MEDS: hydroCHLOROthiazide 12.5 MG CAPSULE PO SCH (10:44)
[2023-07-11] MEDS: VENLAFAXINE **XR** 75MG CAPSULE PO SCH (10:44)
[2023-07-11 17:10] VITALS: BP 136/86; TEMP 96.5
[2023-07-11] MEDS: LURASIDONE HCL 40MG TAB (LATUDA) PO SCH (17:15)
[2023-07-11] MEDS: PRAZOSIN 1 MG CAP PO SCH (20:11)
[2023-07-12] MEDS: hydroCHLOROthiazide 12.5 MG CAPSULE PO SCH (08:21)
[2023-07-12] MEDS: VENLAFAXINE **XR** 75MG CAPSULE PO SCH (08:22)
[2023-07-12 16:22] VITALS: BP 129/78; TEMP 98; O2SAT 96
[2023-07-12] MEDS: IBUPROFEN 400MG TAB PO PRN (17:00)
[2023-07-12] MEDS: LURASIDONE HCL 40MG TAB (LATUDA) PO SCH (17:56)
[2023-07-12] MEDS: PRAZOSIN 1 MG CAP PO SCH (20:21)
[2023-07-12] MEDS: traZODone 50 MG TAB PO PRN (23:11)
[2023-07-13] MEDS: VENLAFAXINE **XR** 75MG CAPSULE PO SCH (08:34)
[2023-07-13] MEDS: hydroCHLOROthiazide 12.5 MG CAPSULE PO SCH (08:34)
[2023-07-13] MEDS ORDERED: OLANZapine ORAL DISINTEGRATING TAB 5MG PO ONE (16:45)
[2023-07-13] MEDS ORDERED: LORazepam 0.5 MG TAB PO ONE (16:45)
[2023-07-13] MEDS: diphenhydrAMINE 25MG CAP PO PRN (16:52)
[2023-07-13] MEDS ORDERED: LORazepam 2 MG/ML 1ML VIAL IM STA (17:09)
[2023-07-13] MEDS ORDERED: HALOPERIDOL 5MG/ML 1ML VIAL IM STA (17:15)
[2023-07-13] MEDS: LURASIDONE HCL 40MG TAB (LATUDA) PO SCH (18:52)
[2023-07-13] MEDS: PRAZOSIN 1 MG CAP PO SCH (21:00)
[2023-07-14] MEDS: VENLAFAXINE **XR** 75MG CAPSULE PO SCH (09:35)
[2023-07-14] MEDS: hydroCHLOROthiazide 12.5 MG CAPSULE PO SCH (09:36)
[2023-07-14] MEDS: LURASIDONE HCL 40MG TAB (LATUDA) PO SCH (17:48)
[2023-07-14] MEDS: PRAZOSIN 1 MG CAP PO SCH (21:00)
[2023-07-15] MEDS: VENLAFAXINE **XR** 75MG CAPSULE PO SCH (09:00)
[2023-07-15] MEDS: hydroCHLOROthiazide 12.5 MG CAPSULE PO SCH (09:00)
[2023-07-15] MEDS: ACETAMINOPHEN TAB 650MG DOSE (2X325MG) PO PRN (10:05)
[2023-07-15] MEDS ORDERED: LORazepam 2 MG TAB PO STA (10:51)
[2023-07-15] MEDS ORDERED: diphenhydrAMINE 50MG CAP PO STA (10:51)
[2023-07-15] MEDS ORDERED: HALOPERIDOL 5MG/ML 1ML VIAL IM STA ×2 (11:37→11:47)
[2023-07-15] MEDS ORDERED: diphenhydrAMINE 50MG/ML VIAL IM STA ×2 (11:38→11:47)
[2023-07-15] MEDS: LURASIDONE HCL 40MG TAB (LATUDA) PO SCH (18:00)
[2023-07-15] MEDS: PRAZOSIN 1 MG CAP PO SCH (21:00)
[2023-07-16] MEDS: VENLAFAXINE **XR** 75MG CAPSULE PO SCH (10:03)
[2023-07-16] MEDS: hydroCHLOROthiazide 12.5 MG CAPSULE PO SCH (10:03)
[2023-07-16] MEDS: fluPHENAZine 5MG TABLET PO SCH ×2 (10:04→21:00)
[2023-07-16] MEDS: ACETAMINOPHEN TAB 650MG DOSE (2X325MG) PO PRN (14:39)
[2023-07-16] MEDS: IBUPROFEN 400MG TAB PO PRN (16:54)
[2023-07-16 19:07] VITALS: BP 137/85; TEMP 98.8
[2023-07-16] MEDS: PRAZOSIN 1 MG CAP PO SCH (21:00)
[2023-07-17 06:28] VITALS: TEMP 96.8
[2023-07-17] MEDS: VENLAFAXINE **XR** 75MG CAPSULE PO SCH (09:00)
[2023-07-17] MEDS: fluPHENAZine 5MG TABLET PO SCH ×2 (09:00→20:33)
[2023-07-17] MEDS: hydroCHLOROthiazide 12.5 MG CAPSULE PO SCH (09:00)
[2023-07-17] MEDS: ACETAMINOPHEN TAB 650MG DOSE (2X325MG) PO PRN (15:36)
[2023-07-17] MEDS ORDERED: fluPHENAZine 5MG TABLET PO STA (17:17)
[2023-07-17] MEDS ORDERED: diphenhydrAMINE 50MG CAP PO STA (17:17)
[2023-07-17] MEDS ORDERED: LORazepam 2 MG TAB PO STA (17:17)
[2023-07-17] MEDS ORDERED: chlorproMAZINE INJ 50MG/2ML AMP IM STA (17:47)
[2023-07-17 18:02] VITALS: BP 133/63; TEMP 96.3; O2SAT 98
[2023-07-17] MEDS: PRAZOSIN 1 MG CAP PO SCH (20:31)
[2023-07-17] MEDS: traZODone 50 MG TAB PO PRN (20:33)
[2023-07-18] MEDS: VENLAFAXINE **XR** 75MG CAPSULE PO SCH (08:16)
[2023-07-18] MEDS: hydroCHLOROthiazide 12.5 MG CAPSULE PO SCH (08:16)
[2023-07-18] MEDS: fluPHENAZine 5MG TABLET PO SCH ×2 (08:17→21:00)
[2023-07-18] MEDS: ACETAMINOPHEN TAB 650MG DOSE (2X325MG) PO PRN (18:18)
[2023-07-18] MEDS: PRAZOSIN 1 MG CAP PO SCH (21:00)
[2023-07-19] MEDS: hydroCHLOROthiazide 12.5 MG CAPSULE PO SCH (09:00)
[2023-07-19] MEDS: VENLAFAXINE **XR** 75MG CAPSULE PO SCH (09:00)
[2023-07-19] MEDS: fluPHENAZine 5MG TABLET PO SCH ×2 (09:00→20:24)
[2023-07-19] MEDS: ACETAMINOPHEN TAB 650MG DOSE (2X325MG) PO PRN (13:02)
[2023-07-19] MEDS: IBUPROFEN 400MG TAB PO PRN (17:18)
[2023-07-19] MEDS: traZODone 50 MG TAB PO PRN (20:23)
[2023-07-19] MEDS: PRAZOSIN 1 MG CAP PO SCH (20:23)
[2023-07-20] MEDS: hydroCHLOROthiazide 12.5 MG CAPSULE PO SCH (08:32)
[2023-07-20] MEDS: fluPHENAZine 5MG TABLET PO SCH ×2 (08:33→21:00)
[2023-07-20] MEDS: VENLAFAXINE **XR** 75MG CAPSULE PO SCH (08:33)
[2023-07-20] MEDS: ACETAMINOPHEN TAB 650MG DOSE (2X325MG) PO PRN (16:38)
[2023-07-20] MEDS: PRAZOSIN 1 MG CAP PO SCH (21:00)
[2023-07-21] MEDS: hydroCHLOROthiazide 12.5 MG CAPSULE PO SCH (10:06)
[2023-07-21] MEDS: VENLAFAXINE **XR** 75MG CAPSULE PO SCH (10:07)
[2023-07-21] MEDS: fluPHENAZine 5MG TABLET PO SCH ×2 (10:07→21:11)
[2023-07-21] MEDS: PRAZOSIN 1 MG CAP PO SCH (21:00)
[2023-07-22] MEDS: VENLAFAXINE **XR** 75MG CAPSULE PO SCH (11:12)
[2023-07-22] MEDS: hydroCHLOROthiazide 12.5 MG CAPSULE PO SCH (11:12)
[2023-07-22] MEDS: fluPHENAZine 5MG TABLET PO SCH ×2 (11:12→21:00)
[2023-07-22] MEDS: PRAZOSIN 1 MG CAP PO SCH (21:00)
[2023-07-23] MEDS: hydroCHLOROthiazide 12.5 MG CAPSULE PO SCH (09:39)
[2023-07-23] MEDS: VENLAFAXINE **XR** 75MG CAPSULE PO SCH (09:39)
[2023-07-23] MEDS: fluPHENAZine 5MG TABLET PO SCH ×2 (09:39→20:58)
[2023-07-23] MEDS: ACETAMINOPHEN TAB 650MG DOSE (2X325MG) PO PRN (11:06)
[2023-07-23] MEDS: diphenhydrAMINE 25MG CAP PO PRN (16:42)
[2023-07-23] MEDS: PRAZOSIN 1 MG CAP PO SCH (20:58)
[2023-07-24] MEDS: VENLAFAXINE **XR** 75MG CAPSULE PO SCH (09:28)
[2023-07-24] MEDS: fluPHENAZine 5MG TABLET PO SCH ×2 (09:28→20:37)
[2023-07-24] MEDS: hydroCHLOROthiazide 12.5 MG CAPSULE PO SCH (09:28)
[2023-07-24] MEDS: diphenhydrAMINE 25MG CAP PO PRN (12:31)
[2023-07-24 18:00] VITALS: BP 130/82; TEMP 97.5
[2023-07-24] MEDS: traZODone 50 MG TAB PO PRN (20:37)
[2023-07-24] MEDS: PRAZOSIN 1 MG CAP PO SCH (20:38)
[2023-07-25] MEDS: hydroCHLOROthiazide 12.5 MG CAPSULE PO SCH (09:43)
[2023-07-25] MEDS: VENLAFAXINE **XR** 75MG CAPSULE PO SCH (09:43)
[2023-07-25] MEDS: fluPHENAZine 5MG TABLET PO SCH ×2 (09:43→20:21)
[2023-07-25 18:00] VITALS: BP 149/72; TEMP 96.5
[2023-07-25] MEDS: traZODone 50 MG TAB PO PRN (20:21)
[2023-07-25] MEDS: PRAZOSIN 1 MG CAP PO SCH (20:22)
[2023-07-26] MEDS: hydroCHLOROthiazide 12.5 MG CAPSULE PO SCH (08:49)
[2023-07-26] MEDS: VENLAFAXINE **XR** 75MG CAPSULE PO SCH (08:49)
[2023-07-26] MEDS: fluPHENAZine 5MG TABLET PO SCH ×2 (08:49→19:53)
[2023-07-26] MEDS: IBUPROFEN 400MG TAB PO PRN (17:21)
[2023-07-26] MEDS: PRAZOSIN 1 MG CAP PO SCH (19:54)
[2023-07-26] MEDS: traZODone 50 MG TAB PO PRN (20:21)
[2023-07-27] MEDS: fluPHENAZine 5MG TABLET PO SCH ×2 (08:58→20:01)
[2023-07-27] MEDS: VENLAFAXINE **XR** 75MG CAPSULE PO SCH (08:58)
[2023-07-27] MEDS: hydroCHLOROthiazide 12.5 MG CAPSULE PO SCH (08:58)
[2023-07-27] MEDS: PRAZOSIN 1 MG CAP PO SCH (20:01)
[2023-07-27] MEDS: traZODone 50 MG TAB PO PRN (20:01)
[2023-07-28] MEDS: VENLAFAXINE **XR** 75MG CAPSULE PO SCH (09:10)
[2023-07-28] MEDS: fluPHENAZine 5MG TABLET PO SCH ×2 (09:10→20:46)
[2023-07-28] MEDS: hydroCHLOROthiazide 12.5 MG CAPSULE PO SCH (09:11)
[2023-07-28] MEDS: diphenhydrAMINE 25MG CAP PO PRN (11:36)
[2023-07-28] MEDS: PRAZOSIN 1 MG CAP PO SCH (20:46)
[2023-07-29] MEDS: hydroCHLOROthiazide 12.5 MG CAPSULE PO SCH (09:32)
[2023-07-29] MEDS: fluPHENAZine 5MG TABLET PO SCH ×2 (09:33→20:23)
[2023-07-29] MEDS: VENLAFAXINE **XR** 75MG CAPSULE PO SCH (09:33)
[2023-07-29] MEDS: PRAZOSIN 1 MG CAP PO SCH (20:24)
[2023-07-30] MEDS: hydroCHLOROthiazide 12.5 MG CAPSULE PO SCH (08:45)
[2023-07-30] MEDS: fluPHENAZine 5MG TABLET PO SCH ×2 (08:45→19:46)
[2023-07-30] MEDS: VENLAFAXINE **XR** 75MG CAPSULE PO SCH (08:45)
[2023-07-30] MEDS: traZODone 50 MG TAB PO PRN (19:46)
[2023-07-30] MEDS: PRAZOSIN 1 MG CAP PO SCH (19:47)
[2023-07-31] MEDS: VENLAFAXINE **XR** 75MG CAPSULE PO SCH (08:59)
[2023-07-31] MEDS: hydroCHLOROthiazide 12.5 MG CAPSULE PO SCH (08:59)
[2023-07-31] MEDS: fluPHENAZine 5MG TABLET PO SCH ×2 (08:59→21:12)
[2023-07-31] MEDS: diphenhydrAMINE 25MG CAP PO PRN (12:02)
[2023-07-31] MEDS: traZODone 50 MG TAB PO PRN (21:12)
[2023-07-31] MEDS: PRAZOSIN 1 MG CAP PO SCH (21:20)
[2023-08-01] MEDS: hydroCHLOROthiazide 12.5 MG CAPSULE PO SCH (08:28)
[2023-08-01] MEDS: fluPHENAZine 5MG TABLET PO SCH ×2 (08:28→20:28)
[2023-08-01] MEDS: VENLAFAXINE **XR** 75MG CAPSULE PO SCH (08:28)
[2023-08-01] MEDS: diphenhydrAMINE 25MG CAP PO PRN (15:40)
[2023-08-01] MEDS: traZODone 50 MG TAB PO PRN (20:28)
[2023-08-01] MEDS: PRAZOSIN 1 MG CAP PO SCH (20:28)
[2023-08-02] MEDS: VENLAFAXINE **XR** 75MG CAPSULE PO SCH (08:48)
[2023-08-02] MEDS: fluPHENAZine 5MG TABLET PO SCH ×2 (08:48→20:54)
[2023-08-02] MEDS: hydroCHLOROthiazide 12.5 MG CAPSULE PO SCH (08:49)
[2023-08-02 19:03] VITALS: BP 152/84; TEMP 97.4
[2023-08-02] MEDS: traZODone 50 MG TAB PO PRN (20:54)
[2023-08-02] MEDS: PRAZOSIN 1 MG CAP PO SCH (20:57)
[2023-08-03] MEDS: VENLAFAXINE **XR** 75MG CAPSULE PO SCH (08:25)
[2023-08-03] MEDS: fluPHENAZine 5MG TABLET PO SCH ×2 (08:25→21:25)
[2023-08-03] MEDS: hydroCHLOROthiazide 12.5 MG CAPSULE PO SCH (08:25)
[2023-08-03 18:56] VITALS: BP 140/86; TEMP 96.6; O2SAT 97
[2023-08-03] MEDS: PRAZOSIN 1 MG CAP PO SCH (21:23)
[2023-08-03] MEDS: traZODone 50 MG TAB PO PRN (21:26)
[2023-08-04] MEDS: hydroCHLOROthiazide 12.5 MG CAPSULE PO SCH (08:16)
[2023-08-04] MEDS: fluPHENAZine 5MG TABLET PO SCH ×2 (08:16→20:58)
[2023-08-04] MEDS: VENLAFAXINE **XR** 75MG CAPSULE PO SCH (08:16)
[2023-08-04] MEDS: PRAZOSIN 1 MG CAP PO SCH (20:58)
[2023-08-05] MEDS: fluPHENAZine 5MG TABLET PO SCH ×2 (08:26→21:00)
[2023-08-05] MEDS: VENLAFAXINE **XR** 75MG CAPSULE PO SCH (08:26)
[2023-08-05] MEDS: hydroCHLOROthiazide 12.5 MG CAPSULE PO SCH (08:26)
[2023-08-05] MEDS: PRAZOSIN 1 MG CAP PO SCH (21:02)
[2023-08-06] MEDS: fluPHENAZine 5MG TABLET PO SCH ×2 (08:25→21:01)
[2023-08-06] MEDS: VENLAFAXINE **XR** 75MG CAPSULE PO SCH (08:25)
[2023-08-06] MEDS: hydroCHLOROthiazide 12.5 MG CAPSULE PO SCH (08:25)
[2023-08-06] MEDS: ACETAMINOPHEN TAB 650MG DOSE (2X325MG) PO PRN (14:34)
[2023-08-06] MEDS: traZODone 50 MG TAB PO PRN (21:01)
[2023-08-06] MEDS: PRAZOSIN 1 MG CAP PO SCH (21:01)
[2023-08-07] MEDS: VENLAFAXINE **XR** 75MG CAPSULE PO SCH (08:23)
[2023-08-07] MEDS: hydroCHLOROthiazide 12.5 MG CAPSULE PO SCH (08:24)
[2023-08-07] MEDS: fluPHENAZine 5MG TABLET PO SCH ×2 (08:24→20:43)
[2023-08-07] MEDS: PRAZOSIN 1 MG CAP PO SCH (20:43)
[2023-08-08] MEDS: VENLAFAXINE **XR** 75MG CAPSULE PO SCH (08:09)
[2023-08-08] MEDS: hydroCHLOROthiazide 12.5 MG CAPSULE PO SCH (08:09)
[2023-08-08] MEDS: fluPHENAZine 5MG TABLET PO SCH ×2 (08:10→20:43)
[2023-08-08] MEDS: ACETAMINOPHEN TAB 650MG DOSE (2X325MG) PO PRN ×2 (10:36→17:26)
[2023-08-08] MEDS: IBUPROFEN 400MG TAB PO PRN (13:01)
[2023-08-08] MEDS: diphenhydrAMINE 25MG CAP PO PRN (17:25)
[2023-08-08] MEDS: traZODone 50 MG TAB PO PRN (20:43)
[2023-08-08] MEDS: PRAZOSIN 1 MG CAP PO SCH (20:48)
[2023-08-09] MEDS: fluPHENAZine 5MG TABLET PO SCH ×2 (08:09→21:10)
[2023-08-09] MEDS: hydroCHLOROthiazide 12.5 MG CAPSULE PO SCH (08:09)
[2023-08-09] MEDS: VENLAFAXINE **XR** 75MG CAPSULE PO SCH (08:09)
[2023-08-09] MEDS: ACETAMINOPHEN TAB 650MG DOSE (2X325MG) PO PRN (12:02)
[2023-08-09] MEDS: IBUPROFEN 400MG TAB PO PRN (16:22)
[2023-08-09] MEDS: PRAZOSIN 1 MG CAP PO SCH (21:12)
[2023-08-09] MEDS: traZODone 50 MG TAB PO PRN (21:12)
[2023-08-10] MEDS: fluPHENAZine 5MG TABLET PO SCH ×2 (08:36→21:08)
[2023-08-10] MEDS: hydroCHLOROthiazide 12.5 MG CAPSULE PO SCH (08:36)
[2023-08-10] MEDS: VENLAFAXINE **XR** 75MG CAPSULE PO SCH (08:37)
[2023-08-10 16:34] VITALS: BP 137/93; TEMP 96.9; O2SAT 97
[2023-08-10] MEDS: PRAZOSIN 1 MG CAP PO SCH (21:09)
[2023-08-11] MEDS: hydroCHLOROthiazide 12.5 MG CAPSULE PO SCH (09:09)
[2023-08-11] MEDS: fluPHENAZine 5MG TABLET PO SCH ×2 (09:09→21:07)
[2023-08-11] MEDS: VENLAFAXINE **XR** 75MG CAPSULE PO SCH (09:09)
[2023-08-11] MEDS: ACETAMINOPHEN TAB 650MG DOSE (2X325MG) PO PRN (16:35)
[2023-08-11] MEDS: traZODone 50 MG TAB PO PRN (21:06)
[2023-08-11] MEDS: PRAZOSIN 1 MG CAP PO SCH (21:07)
[2023-08-12] MEDS: fluPHENAZine 5MG TABLET PO SCH ×2 (08:16→21:04)
[2023-08-12] MEDS: hydroCHLOROthiazide 12.5 MG CAPSULE PO SCH (08:16)
[2023-08-12] MEDS: VENLAFAXINE **XR** 75MG CAPSULE PO SCH (08:16)
[2023-08-12] MEDS: ACETAMINOPHEN TAB 650MG DOSE (2X325MG) PO PRN (09:34)
[2023-08-12] MEDS: IBUPROFEN 400MG TAB PO PRN (17:41)
[2023-08-12] MEDS: traZODone 50 MG TAB PO PRN (21:04)
[2023-08-12] MEDS: PRAZOSIN 1 MG CAP PO SCH (21:04)
[2023-08-13] MEDS: fluPHENAZine 5MG TABLET PO SCH ×2 (08:23→21:03)
[2023-08-13] MEDS: hydroCHLOROthiazide 12.5 MG CAPSULE PO SCH (08:23)
[2023-08-13] MEDS: VENLAFAXINE **XR** 75MG CAPSULE PO SCH (08:24)
[2023-08-13] MEDS: PRAZOSIN 1 MG CAP PO SCH (21:03)
[2023-08-13] MEDS: traZODone 50 MG TAB PO PRN (21:03)
[2023-08-14] MEDS: VENLAFAXINE **XR** 75MG CAPSULE PO SCH (08:17)
[2023-08-14] MEDS: fluPHENAZine 5MG TABLET PO SCH ×2 (08:18→20:27)
[2023-08-14] MEDS: hydroCHLOROthiazide 12.5 MG CAPSULE PO SCH (08:18)
[2023-08-14] MEDS: ACETAMINOPHEN TAB 650MG DOSE (2X325MG) PO PRN (13:18)
[2023-08-14] MEDS: IBUPROFEN 400MG TAB PO PRN (18:20)
[2023-08-14] MEDS: traZODone 50 MG TAB PO PRN (20:26)
[2023-08-14] MEDS: PRAZOSIN 1 MG CAP PO SCH (20:29)
[2023-08-15] MEDS: fluPHENAZine 5MG TABLET PO SCH ×2 (08:26→21:18)
[2023-08-15] MEDS: hydroCHLOROthiazide 12.5 MG CAPSULE PO SCH (08:26)
[2023-08-15] MEDS: VENLAFAXINE **XR** 75MG CAPSULE PO SCH (08:27)
[2023-08-15] MEDS: ACETAMINOPHEN TAB 650MG DOSE (2X325MG) PO PRN (11:25)
[2023-08-15] MEDS: diphenhydrAMINE 25MG CAP PO PRN (13:13)
[2023-08-15] MEDS: IBUPROFEN 400MG TAB PO PRN (15:09)
[2023-08-15] MEDS: traZODone 50 MG TAB PO PRN (21:17)
[2023-08-15] MEDS: PRAZOSIN 1 MG CAP PO SCH (21:18)
[2023-08-16] MEDS: fluPHENAZine 5MG TABLET PO SCH ×2 (08:03→21:41)
[2023-08-16] MEDS: hydroCHLOROthiazide 12.5 MG CAPSULE PO SCH (08:03)
[2023-08-16] MEDS: VENLAFAXINE **XR** 75MG CAPSULE PO SCH (08:03)
[2023-08-16] MEDS: ACETAMINOPHEN TAB 650MG DOSE (2X325MG) PO PRN (16:08)
[2023-08-16 18:12] VITALS: BP 117/89; TEMP 97.5
[2023-08-16] MEDS: traZODone 50 MG TAB PO PRN (21:41)
[2023-08-16] MEDS: PRAZOSIN 1 MG CAP PO SCH (21:46)
[2023-08-17] MEDS: hydroCHLOROthiazide 12.5 MG CAPSULE PO SCH (08:45)
[2023-08-17] MEDS: fluPHENAZine 5MG TABLET PO SCH ×2 (08:46→22:59)
[2023-08-17] MEDS: VENLAFAXINE **XR** 75MG CAPSULE PO SCH (08:46)
[2023-08-17] MEDS: ACETAMINOPHEN TAB 650MG DOSE (2X325MG) PO PRN (15:24)
[2023-08-17] MEDS: PRAZOSIN 1 MG CAP PO SCH (22:59)
[2023-08-17] MEDS: IBUPROFEN 400MG TAB PO PRN (23:00)
[2023-08-18] MEDS: hydroCHLOROthiazide 12.5 MG CAPSULE PO SCH (08:22)
[2023-08-18] MEDS: VENLAFAXINE **XR** 75MG CAPSULE PO SCH (08:22)
[2023-08-18] MEDS: fluPHENAZine 5MG TABLET PO SCH ×2 (08:23→21:20)
[2023-08-18] MEDS: ACETAMINOPHEN TAB 650MG DOSE (2X325MG) PO PRN (13:51)
[2023-08-18 16:24] VITALS: BP 125/71; TEMP 96.8; O2SAT 96
[2023-08-18] MEDS: traZODone 50 MG TAB PO PRN (21:20)
[2023-08-18] MEDS: PRAZOSIN 1 MG CAP PO SCH (21:24)
[2023-08-19] MEDS: VENLAFAXINE **XR** 75MG CAPSULE PO SCH (08:09)
[2023-08-19] MEDS: hydroCHLOROthiazide 12.5 MG CAPSULE PO SCH (08:09)
[2023-08-19] MEDS: fluPHENAZine 5MG TABLET PO SCH ×2 (08:09→21:16)
[2023-08-19] MEDS: ACETAMINOPHEN TAB 650MG DOSE (2X325MG) PO PRN ×2 (09:26→16:03)
[2023-08-19] MEDS: IBUPROFEN 400MG TAB PO PRN ×2 (10:17→16:36)
[2023-08-19] MEDS: traZODone 50 MG TAB PO PRN (21:15)
[2023-08-19] MEDS: PRAZOSIN 1 MG CAP PO SCH (21:16)
[2023-08-20] MEDS: VENLAFAXINE **XR** 75MG CAPSULE PO SCH (08:15)
[2023-08-20] MEDS: hydroCHLOROthiazide 12.5 MG CAPSULE PO SCH (08:15)
[2023-08-20] MEDS: fluPHENAZine 5MG TABLET PO SCH ×2 (08:15→21:21)
[2023-08-20] MEDS: ACETAMINOPHEN TAB 650MG DOSE (2X325MG) PO PRN (10:23)
[2023-08-20] MEDS: IBUPROFEN 400MG TAB PO PRN (15:27)
[2023-08-20 19:08] VITALS: BP 130/65; TEMP 97.1
[2023-08-20] MEDS: traZODone 50 MG TAB PO PRN (21:21)
[2023-08-20] MEDS: PRAZOSIN 1 MG CAP PO SCH (21:21)
[2023-08-21] MEDS: hydroCHLOROthiazide 12.5 MG CAPSULE PO SCH (08:15)
[2023-08-21] MEDS: VENLAFAXINE **XR** 75MG CAPSULE PO SCH (08:15)
[2023-08-21] MEDS: fluPHENAZine 5MG TABLET PO SCH ×2 (08:15→20:14)
[2023-08-21] MEDS: ACETAMINOPHEN TAB 650MG DOSE (2X325MG) PO PRN (15:05)
[2023-08-21] MEDS: traZODone 50 MG TAB PO PRN (20:14)
[2023-08-21] MEDS: PRAZOSIN 1 MG CAP PO SCH (20:15)
[2023-08-22] MEDS: VENLAFAXINE **XR** 75MG CAPSULE PO SCH (08:14)
[2023-08-22] MEDS: fluPHENAZine 5MG TABLET PO SCH ×2 (08:16→21:38)
[2023-08-22] MEDS: hydroCHLOROthiazide 12.5 MG CAPSULE PO SCH (08:16)
[2023-08-22] MEDS: ACETAMINOPHEN TAB 650MG DOSE (2X325MG) PO PRN (11:05)
[2023-08-22] MEDS: IBUPROFEN 400MG TAB PO PRN (13:00)
[2023-08-22 18:38] VITALS: BP 140/94; TEMP 98; O2SAT 98
[2023-08-22 21:35] VITALS: BP 136/74
[2023-08-22] MEDS: traZODone 50 MG TAB PO PRN (21:38)
[2023-08-22] MEDS: PRAZOSIN 1 MG CAP PO SCH (21:38)
[2023-08-22] MEDS: diphenhydrAMINE 25MG CAP PO PRN (21:38)
[2023-08-23] MEDS: fluPHENAZine 5MG TABLET PO SCH ×2 (08:22→21:06)
[2023-08-23] MEDS: VENLAFAXINE **XR** 75MG CAPSULE PO SCH (08:23)
[2023-08-23] MEDS: hydroCHLOROthiazide 12.5 MG CAPSULE PO SCH (08:23)
[2023-08-23] MEDS: ACETAMINOPHEN TAB 650MG DOSE (2X325MG) PO PRN (11:00)
[2023-08-23] MEDS: IBUPROFEN 400MG TAB PO PRN (11:13)
[2023-08-23 18:09] VITALS: BP 124/85; TEMP 97.2; O2SAT 96
[2023-08-23] MEDS: traZODone 50 MG TAB PO PRN (21:06)
[2023-08-23] MEDS: PRAZOSIN 1 MG CAP PO SCH (21:09)
[2023-08-24] MEDS: fluPHENAZine 5MG TABLET PO SCH ×2 (07:55→20:02)
[2023-08-24] MEDS: hydroCHLOROthiazide 12.5 MG CAPSULE PO SCH (07:55)
[2023-08-24] MEDS: VENLAFAXINE **XR** 75MG CAPSULE PO SCH (07:55)
[2023-08-24] MEDS: ACETAMINOPHEN TAB 650MG DOSE (2X325MG) PO PRN (17:04)
[2023-08-24] MEDS: traZODone 50 MG TAB PO PRN (20:03)
[2023-08-24] MEDS: PRAZOSIN 1 MG CAP PO SCH (20:03)
[2023-08-25] MEDS: PILL CUTTER 1 EACH XX PRN (08:54)
[2023-08-25] MEDS: VENLAFAXINE **XR** 75MG CAPSULE PO SCH (08:54)
[2023-08-25] MEDS: fluPHENAZine 5MG TABLET PO SCH ×2 (08:55→21:07)
[2023-08-25] MEDS: hydroCHLOROthiazide 12.5 MG CAPSULE PO SCH (08:55)
[2023-08-25] MEDS: ACETAMINOPHEN TAB 650MG DOSE (2X325MG) PO PRN (15:00)
[2023-08-25] MEDS: traZODone 50 MG TAB PO PRN (21:06)
[2023-08-25] MEDS: PRAZOSIN 1 MG CAP PO SCH (21:09)
[2023-08-26] MEDS: VENLAFAXINE **XR** 75MG CAPSULE PO SCH (08:16)
[2023-08-26] MEDS: fluPHENAZine 5MG TABLET PO SCH ×2 (08:16→20:04)
[2023-08-26] MEDS: hydroCHLOROthiazide 12.5 MG CAPSULE PO SCH (08:16)
[2023-08-26] MEDS: PILL CUTTER 1 EACH XX PRN ×2 (08:16→20:04)
[2023-08-26] MEDS: ACETAMINOPHEN TAB 650MG DOSE (2X325MG) PO PRN (11:09)
[2023-08-26] MEDS: traZODone 50 MG TAB PO PRN (20:04)
[2023-08-26] MEDS: PRAZOSIN 1 MG CAP PO SCH (20:05)
[2023-08-27 05:58] VITALS: BP 117/55; TEMP 97; O2SAT 95
[2023-08-27] MEDS: PILL CUTTER 1 EACH XX PRN ×2 (08:04→21:40)
[2023-08-27] MEDS: hydroCHLOROthiazide 12.5 MG CAPSULE PO SCH (08:04)
[2023-08-27] MEDS: fluPHENAZine 5MG TABLET PO SCH ×2 (08:04→21:40)
[2023-08-27] MEDS: VENLAFAXINE **XR** 75MG CAPSULE PO SCH (08:05)
[2023-08-27] MEDS: traZODone 50 MG TAB PO PRN (21:40)
[2023-08-27] MEDS: PRAZOSIN 1 MG CAP PO SCH (21:41)
[2023-08-28] MEDS: fluPHENAZine 5MG TABLET PO SCH ×2 (08:45→21:28)
[2023-08-28] MEDS: VENLAFAXINE **XR** 75MG CAPSULE PO SCH (08:46)
[2023-08-28] MEDS: PILL CUTTER 1 EACH XX PRN (08:46)
[2023-08-28] MEDS: hydroCHLOROthiazide 12.5 MG CAPSULE PO SCH (08:46)
[2023-08-28 16:13] VITALS: BP 128/79; TEMP 97.8; O2SAT 97
[2023-08-28] MEDS: PRAZOSIN 1 MG CAP PO SCH (21:28)
[2023-08-28] MEDS: traZODone 50 MG TAB PO PRN (21:29)
[2023-08-29] MEDS: hydroCHLOROthiazide 12.5 MG CAPSULE PO SCH (08:06)
[2023-08-29] MEDS: VENLAFAXINE **XR** 75MG CAPSULE PO SCH (08:06)
[2023-08-29] MEDS: fluPHENAZine 5MG TABLET PO SCH ×2 (08:06→21:45)
[2023-08-29] MEDS: ACETAMINOPHEN TAB 650MG DOSE (2X325MG) PO PRN (12:47)
[2023-08-29 15:30] VITALS: BP 121/78; TEMP 97.5; O2SAT 96
[2023-08-29] MEDS: PRAZOSIN 1 MG CAP PO SCH (21:44)
[2023-08-29] MEDS: traZODone 50 MG TAB PO PRN (21:45)
[2023-08-30] MEDS: PILL CUTTER 1 EACH XX PRN ×2 (09:55→21:59)
[2023-08-30] MEDS: hydroCHLOROthiazide 12.5 MG CAPSULE PO SCH (09:55)
[2023-08-30] MEDS: fluPHENAZine 5MG TABLET PO SCH ×2 (09:56→21:59)
[2023-08-30] MEDS: VENLAFAXINE **XR** 75MG CAPSULE PO SCH (09:56)
[2023-08-30] MEDS: traZODone 50 MG TAB PO PRN (21:59)
[2023-08-30] MEDS: LITHIUM CARBONATE 150 MG CAP PO SCH (21:59)
[2023-08-30] MEDS: PRAZOSIN 1 MG CAP PO SCH (22:00)
[2023-08-31] MEDS: PILL CUTTER 1 EACH XX PRN (08:47)
[2023-08-31] MEDS: VENLAFAXINE **XR** 75MG CAPSULE PO SCH (08:47)
[2023-08-31] MEDS: hydroCHLOROthiazide 12.5 MG CAPSULE PO SCH (08:47)
[2023-08-31] MEDS: fluPHENAZine 5MG TABLET PO SCH ×2 (08:48→21:56)
[2023-08-31 18:43] VITALS: BP 141/83; TEMP 97.9; O2SAT 98
[2023-08-31] MEDS: LITHIUM CARBONATE 150 MG CAP PO SCH ×2 (21:57→22:05)
[2023-08-31] MEDS: PRAZOSIN 1 MG CAP PO SCH (22:03)
[2023-09-01] MEDS: VENLAFAXINE **XR** 75MG CAPSULE PO SCH (08:54)
[2023-09-01] MEDS: hydroCHLOROthiazide 12.5 MG CAPSULE PO SCH (08:54)
[2023-09-01] MEDS: fluPHENAZine 5MG TABLET PO SCH ×2 (08:55→20:58)
[2023-09-01] MEDS: traZODone 50 MG TAB PO PRN (20:58)
[2023-09-01] MEDS: PRAZOSIN 1 MG CAP PO SCH (20:58)
[2023-09-02] MEDS: hydroCHLOROthiazide 12.5 MG CAPSULE PO SCH (08:41)
[2023-09-02] MEDS: VENLAFAXINE **XR** 75MG CAPSULE PO SCH (08:41)
[2023-09-02] MEDS: fluPHENAZine 5MG TABLET PO SCH ×2 (08:42→20:48)
[2023-09-02] MEDS: CARIPRAZINE 1.5MG CAPSULE (VRAYLAR) PO SCH (12:35)
[2023-09-02 18:17] VITALS: BP 131/93; TEMP 96.8; O2SAT 98
[2023-09-02] MEDS: traZODone 50 MG TAB PO PRN (20:48)
[2023-09-02] MEDS: PRAZOSIN 1 MG CAP PO SCH (20:48)
[2023-09-03] MEDS: CARIPRAZINE 1.5MG CAPSULE (VRAYLAR) PO SCH (09:54)
[2023-09-03] MEDS: hydroCHLOROthiazide 12.5 MG CAPSULE PO SCH (09:54)
[2023-09-03] MEDS: VENLAFAXINE **XR** 75MG CAPSULE PO SCH (09:55)
[2023-09-03] MEDS: PILL CUTTER 1 EACH XX PRN (09:55)
[2023-09-03] MEDS: fluPHENAZine 5MG TABLET PO SCH (09:55)
[2023-09-03] MEDS: ACETAMINOPHEN TAB 650MG DOSE (2X325MG) PO PRN (11:00)
[2023-09-03 16:21] VITALS: BP 135/91; TEMP 97.4; O2SAT 97
[2023-09-03] MEDS: traZODone 50 MG TAB PO PRN (19:46)
[2023-09-03] MEDS: PRAZOSIN 1 MG CAP PO SCH (19:47)
[2023-09-04] MEDS ORDERED: fluPHENAZine 5MG TABLET PO SCH (09:00)
[2023-09-04] MEDS: VENLAFAXINE **XR** 75MG CAPSULE PO SCH (09:10)
[2023-09-04] MEDS: hydroCHLOROthiazide 12.5 MG CAPSULE PO SCH (09:10)
[2023-09-04] MEDS: IBUPROFEN 400MG TAB PO PRN (19:31)
[2023-09-04] MEDS ORDERED: CARIPRAZINE 1.5MG CAPSULE (VRAYLAR) PO SCH (21:00)
[2023-09-04] MEDS: traZODone 50 MG TAB PO PRN (22:14)
[2023-09-04] MEDS: PRAZOSIN 1 MG CAP PO SCH (22:14)
[2023-09-05] MEDS: VENLAFAXINE **XR** 75MG CAPSULE PO SCH (09:47)
[2023-09-05] MEDS: hydroCHLOROthiazide 12.5 MG CAPSULE PO SCH (09:47)
[2023-09-05] MEDS: ACETAMINOPHEN TAB 650MG DOSE (2X325MG) PO PRN (16:46)
[2023-09-05 18:22] VITALS: BP 131/86; TEMP 98.5
[2023-09-05] MEDS: PRAZOSIN 1 MG CAP PO SCH (20:44)
[2023-09-05] MEDS: traZODone 50 MG TAB PO PRN (20:47)
[2023-09-06] MEDS: VENLAFAXINE **XR** 75MG CAPSULE PO SCH (08:19)
[2023-09-06] MEDS: hydroCHLOROthiazide 12.5 MG CAPSULE PO SCH (08:19)
[2023-09-06 15:58] VITALS: BP 148/92; TEMP 96
[2023-09-06 19:55] VITALS: BP 138/95
[2023-09-06] MEDS: PRAZOSIN 1 MG CAP PO SCH (19:55)
[2023-09-06] MEDS: traZODone 50 MG TAB PO PRN (19:58)
[2023-09-06] MEDS ORDERED: CARIPRAZINE 1.5MG CAPSULE (VRAYLAR) PO SCH (21:00)
[2023-09-06] MEDS: ACETAMINOPHEN TAB 650MG DOSE (2X325MG) PO PRN (21:16)
[2023-09-06] MEDS: diphenhydrAMINE 25MG CAP PO PRN (23:18)
[2023-09-07] MEDS: VENLAFAXINE **XR** 75MG CAPSULE PO SCH (08:08)
[2023-09-07] MEDS: hydroCHLOROthiazide 12.5 MG CAPSULE PO SCH (08:08)
== END 2023-09-07 12:53 | DRG 751 ==
LOC: M ED 15:30 → M ED INP 07-07 13:11 → M PSY 07-07 21:46
PROVIDERS: ADMIT Student in an Organized Health Care Education/Training Program; ATTEND Student in an Organized Health Care Education/Training Program
DX: F33.1 Major depressive disorder, recurrent, moderate (principal); E66.01 Morbid (severe) obesity due to excess calories; R45.851 Suicidal ideations; Z78.1 Physical restraint status; I10 Essential (primary) hypertension; J45.909 Unspecified asthma, uncomplicated; F43.10 Post-traumatic stress disorder, unspecified; F60.3 Borderline personality disorder; N92.6 Irregular menstruation, unspecified; F60.7 Dependent personality disorder; Z79.899 Other long term (current) drug therapy; Z20.822 Contact with and (suspected) exposure to COVID-19; Z91.51 Personal history of suicidal behavior; S41.119A Laceration without foreign body of unspecified upper arm, initial encounter; X78.9XXA Intentional self-harm by unspecified sharp object, initial encounter; Y92.239 Unspecified place in hospital as the place of occurrence of the external cause; Z83.3 Family history of diabetes mellitus; Z62.810 Personal history of physical and sexual abuse in childhood; Z91.410 Personal history of adult physical and sexual abuse; Z62.811 Personal history of psychological abuse in childhood; Z91.52 Personal history of nonsuicidal self-harm

== ENCOUNTER 2023-10-25 13:42 | Emergency (ER) | payer MEDICAID, OTHER ==
[~2023-10-25] VITALS: Ht 160 cm; Wt 161.7 kg
[~2023-10-25 13:42] MED LIST changes: +ALBU2.5V10 INH; +PRAZ1CAP46 PO; +VRAY6CAP PO
[2023-10-25] MEDS ORDERED: ZOLP10TA2 (14:37)
[2023-10-25 20:38] VITALS: BP 135/85; TEMP 98.4; O2SAT 96
[2023-10-25 20:47] LABS: CHLAMYDIA DNA AMPLIFICATION NEGATIVE (NEGATIVE); GC DNA AMPLIFICATION NEGATIVE (NEGATIVE)
== END 2023-10-25 21:22 | disposition home or self-care (01) ==
LOC: M ED 13:42
DX: Z20.2 Contact with and (suspected) exposure to infections with a predominantly sexual mode of transmission (principal); I10 Essential (primary) hypertension; F17.200 Nicotine dependence, unspecified, uncomplicated; Z87.42 Personal history of other diseases of the female genital tract; Z79.52 Long term (current) use of systemic steroids; Z79.899 Other long term (current) drug therapy

== ENCOUNTER → 2023-11-09 | Outpatient (CLI) | payer OTHER ==
[~2023-11-09] MED LIST changes: +ZOLP10TA2
[2023-11-09 09:44] LABS: BASO % 0.4 % (0.0-1.0); EOS # 0.2 10^3/uL (0.0-0.5); EOS % 1.6 % (0.0-3.0); HEMATOCRIT 37.3 % (36.0-47.0); HEMOGLOBIN 11.6 g/dl (12.0-15.5); LYMPH # 3.4 10^3/uL (1.5-5.0); LYMPH % 37.2 % (24.0-44.0); MEAN CORPUSCULAR HEMOGLOBIN 26.3 pg (27.0-33.0); MEAN CORPUSCULAR HGB CONC 31.1 g/dl (32.0-36.5); MEAN CORPUSCULAR VOLUME 84.6 fl (80.0-96.0); MONO # 0.8 10^3/uL (0.0-0.8); MONO % 8.1 % (2.0-8.0); NEUTROPHILS # 4.8 10^3/uL (1.5-8.5); NEUTROPHILS % 52.4 % (36.0-66.0); PLATELET COUNT, AUTOMATED 326 10^3/uL (150-450); RED BLOOD COUNT 4.41 10^6/uL (4.00-5.40); WHITE BLOOD COUNT 9.2 10^3/uL (4.0-10.0)
[2023-11-09 10:00] LABS: HEMOGLOBIN A1c 5.4 % (4.0-6.0)
[2023-11-09 10:11] LABS: PERCENT SATURATION 7.5 % (13.2-45.0)
[2023-11-09 10:12] LABS: FREE T4 1.28 NG/DL (0.89-1.76); THYROID STIMULATING HORMONE 2.259 uIU/ML (0.55-4.78)
[2023-11-09 10:13] LABS: FERRITIN 16.8 NG/ML (7.3-270.7)
== END ==
LOC: M LAB 09:02
PROVIDERS: ATTEND Nurse Practitioner Family
DX: N93.9 Abnormal uterine and vaginal bleeding, unspecified (principal)

== ENCOUNTER → 2023-12-22 | Outpatient (CLI) | payer OTHER ==
[~2023-12-22] MED LIST changes: +ATEN25TA PO; +DEPA1TAB3 PO; +FERR324T21 PO; +RISP-105; +RISP-105 PO; -RISP-8; -RISP-8 PO
== END ==
LOC: M WHC 08:35
PROVIDERS: ATTEND Nurse Practitioner Family
DX: N63.11 Unspecified lump in the right breast, upper outer quadrant (principal)

== ENCOUNTER 2024-01-01 21:39 | Emergency (ER) | payer OTHER ==
[~2024-01-01] VITALS: Ht 160 cm; Wt 350.0 kg
[2024-01-01 22:38] LABS: HEMATOCRIT 35.3 % (36.0-47.0); HEMOGLOBIN 10.8 g/dl (12.0-15.5); MEAN CORPUSCULAR HEMOGLOBIN 24.8 pg (27.0-33.0); MEAN CORPUSCULAR HGB CONC 30.6 g/dl (32.0-36.5); MEAN CORPUSCULAR VOLUME 81.1 fl (80.0-96.0); PLATELET COUNT, AUTOMATED 398 10^3/uL (150-450); RED BLOOD COUNT 4.35 10^6/uL (4.00-5.40); WHITE BLOOD COUNT 10.7 10^3/uL (4.0-10.0)
[2024-01-01 22:49] LABS: ETHYL ALCOHOL (ETHANOL) 0.004 % (0.000-0.010)
[2024-01-01 22:50] LABS: ALBUMIN 3.4 G/DL (3.2-5.2); ALKALINE PHOSPHATASE 81 U/L (46-116); ALT/SGPT 20 U/L (7.0-40); AST/SGOT 8 U/L (<34); BILIRUBIN,DIRECT < 0.1 MG/DL (<0.4); BILIRUBIN,TOTAL 0.3 MG/DL (0.3-1.2); BLOOD UREA NITROGEN 16 MG/DL (9-23); CALCIUM LEVEL 9.6 MG/DL (8.5-10.1); CARBON DIOXIDE LEVEL 28 MMOL/L (20-31); CHLORIDE LEVEL 107 MMOL/L (98-107); CREATININE FOR GFR 0.59 MG/DL (0.55-1.30); GLOMERULAR FILTRATION RATE > 60.0 (>60); GLUCOSE, FASTING 93 MG/DL (60-100); POTASSIUM SERUM 4.1 MMOL/L (3.5-5.1); SALICYLATE LEVEL < 3.0 MG/DL (<30); SODIUM LEVEL 142 MMOL/L (136-145); TOTAL PROTEIN 6.9 G/DL (5.7-8.2)
[2024-01-01] MEDS ORDERED: HALOPERIDOL 5MG/ML 1ML VIAL As Ordered ONE (22:50)
[2024-01-01 22:52] LABS: THYROID STIMULATING HORMONE 2.382 uIU/ML (0.55-4.78)
[2024-01-01] MEDS ORDERED: LORazepam 2 MG/ML 1ML VIAL As Ordered ONE (22:52)
[2024-01-01 22:56] LABS: HCG, SERUM QUALITATIVE NEGATIVE (NEGATIVE)
[2024-01-01] MEDS: HALOPERIDOL 5MG/ML 1ML VIAL IM ONE (22:56)
[2024-01-01] MEDS: LORazepam 2 MG/ML 1ML VIAL IM ONE (22:57)
[2024-01-01] MEDS: diphenhydrAMINE 50MG/ML VIAL IM ONE (22:57)
[2024-01-02 06:20] VITALS: BP 121/72; TEMP 95.4; O2SAT 99
[2024-01-02] MEDS: BACITRACIN OINTMENT 30GM TUBE TOP PRN (12:54)
== END 2024-01-02 15:30 | disposition home or self-care (01) ==
LOC: M ED 21:39
DX: F43.21 Adjustment disorder with depressed mood (principal); F31.9 Bipolar disorder, unspecified; R45.851 Suicidal ideations; Z79.52 Long term (current) use of systemic steroids; Z79.899 Other long term (current) drug therapy
CPT/HCPCS: 80048; 80076; 80143; 82077; 84443; 84703; 85027; 87635; 96372; 99285; J1200; J1630; J2060

== ENCOUNTER 2024-01-16 01:30 | Inpatient (IN) | payer MEDICAID, OTHER ==
[~2024-01-16] VITALS: Ht 160 cm; Wt 159.0 kg
[2024-01-16 02:12] LABS: HEMATOCRIT 36.6 % (36.0-47.0); HEMOGLOBIN 11.1 g/dl (12.0-15.5); MEAN CORPUSCULAR HEMOGLOBIN 25.1 pg (27.0-33.0); MEAN CORPUSCULAR HGB CONC 30.3 g/dl (32.0-36.5); MEAN CORPUSCULAR VOLUME 82.6 fl (80.0-96.0); PLATELET COUNT, AUTOMATED 412 10^3/uL (150-450); RED BLOOD COUNT 4.43 10^6/uL (4.00-5.40); WHITE BLOOD COUNT 17.8 10^3/uL (4.0-10.0)
[2024-01-16 02:37] LABS: ETHYL ALCOHOL (ETHANOL) 0.005 % (0.000-0.010)
[2024-01-16 02:38] LABS: ALBUMIN 3.3 G/DL (3.2-5.2); ALKALINE PHOSPHATASE 74 U/L (46-116); ALT/SGPT 15 U/L (7.0-40); AST/SGOT < 8 U/L (<34); BILIRUBIN,DIRECT < 0.1 MG/DL (<0.4); BILIRUBIN,TOTAL 0.2 MG/DL (0.3-1.2); BLOOD UREA NITROGEN 21 MG/DL (9-23); CALCIUM LEVEL 8.7 MG/DL (8.5-10.1); CARBON DIOXIDE LEVEL 28 MMOL/L (20-31); CHLORIDE LEVEL 105 MMOL/L (98-107); CREATININE FOR GFR 0.52 MG/DL (0.55-1.30); GLOMERULAR FILTRATION RATE > 60.0 (>60); GLUCOSE, FASTING 104 MG/DL (60-100); POTASSIUM SERUM 3.9 MMOL/L (3.5-5.1); SALICYLATE LEVEL < 3.0 MG/DL (<30); SODIUM LEVEL 139 MMOL/L (136-145); TOTAL PROTEIN 6.7 G/DL (5.7-8.2)
[2024-01-16 02:41] LABS: THYROID STIMULATING HORMONE 3.092 uIU/ML (0.55-4.78)
[2024-01-16] MEDS ORDERED: VENL225T32 PO (03:26)
[2024-01-16] MEDS ORDERED: DIVA500T94 PO (03:26)
[2024-01-16] MEDS ORDERED: HOME MED LIST COMPLETE! XX SCH (03:30)
[2024-01-16 07:27] LABS: APPEARANCE, URINE HAZY (CLEAR); BACTERIA, URINE AUTO NEGATIVE (NEGATIVE); BILIRUBIN, URINE AUTO NEGATIVE (NEGATIVE); BLOOD, URINE BLOOD NEGATIVE (NEGATIVE); COLOR, URINE YELLOW (YELLOW); GLUCOSE, URINE (UA) AUTO NEGATIVE (NEGATIVE); KETONE, URINE AUTO NEGATIVE (NEGATIVE); LEUKOCYTE ESTERASE, URINE AUTO NEGATIVE (NEGATIVE); MUCUS, URINE SMALL (NEGATIVE); NITRITE, URINE AUTO NEGATIVE (NEGATIVE); PROTEIN, URINE AUTO NEGATIVE (NEGATIVE); RBC, URINE AUTO 0 /HPF (0-3); SQUAMOUS EPITHELIAL CELL UR AU 6 /HPF (0-6); UROBILINOGEN, URINE AUTO 0.2 mg/dL (0.0-2.0); WBC, URINE AUTO 1 /HPF (0-3)
[2024-01-16 07:49] LABS: AMPHETAMINES LEVEL URINE NEGATIVE (NEGATIVE); BARBITURATES URINE NEGATIVE (NEGATIVE); BENZODIAZEPINES URINE NEGATIVE (NEGATIVE); CANNABINOIDS URINE NEGATIVE (NEGATIVE); COCAINE METABOLITE URINE NEGATIVE (NEGATIVE); METHADONE URINE NEGATIVE (NEGATIVE); OPIATES URINE NEGATIVE (NEGATIVE); PHENCYCLIDINE URINE NEGATIVE (NEGATIVE)
[2024-01-16] MEDS ORDERED: MOM 30ML SUSPENSION UDC PO PRN (11:10)
[2024-01-16 15:17] VITALS: BP 125/60; TEMP 96.9; O2SAT 98
[2024-01-16] MEDS: ACETAMINOPHEN TAB 650MG DOSE (2X325MG) PO PRN (18:54)
[2024-01-16] MEDS: diphenhydrAMINE 25MG CAP PO PRN (19:22)
[2024-01-17 06:42] VITALS: BP 140/71; TEMP 97.3; O2SAT 100
[2024-01-17] MEDS ORDERED: ALBUTEROL SULFATE 2.5MG/0.5ML INH NEB SOLN INH PRN (08:25)
[2024-01-17] MEDS: NICOTINE 14 MG/24 HR TRANSDERMAL TD SCH (08:30)
[2024-01-17] MEDS: atenoloL 25 MG TAB PO SCH (08:33)
[2024-01-17] MEDS: DIVALPROEX 500 MG TAB PO SCH (08:33)
[2024-01-17] MEDS: FERROUS GLUCONATE 324 MG TAB PO SCH (09:54)
[2024-01-17] MEDS: hydroCHLOROthiazide 12.5 MG CAPSULE PO SCH (09:54)
[2024-01-17] MEDS: VENLAFAXINE **XR** 75MG CAPSULE PO SCH (09:54)
[2024-01-17 18:28] VITALS: BP 124/63; TEMP 97; O2SAT 99
[2024-01-17] MEDS: IBUPROFEN 400MG TAB PO PRN (20:18)
[2024-01-17] MEDS: traZODone 50 MG TAB PO PRN (20:18)
[2024-01-17] MEDS: PRAZOSIN 1 MG CAP PO SCH (20:19)
[2024-01-17] MEDS: OLANZapine ORAL DISINTEGRATING TAB 5MG PO ONE (22:48)
[2024-01-18 14:00] LABS: BASO % 0.3 % (0.0-1.0); EOS # 0.2 10^3/uL (0.0-0.5); HEMOGLOBIN 10.9 g/dl (12.0-15.5); LYMPH # 3.4 10^3/uL (1.5-5.0); LYMPH % 33.4 % (24.0-44.0); MEAN CORPUSCULAR HEMOGLOBIN 25.2 pg (27.0-33.0); MEAN CORPUSCULAR HGB CONC 30.3 g/dl (32.0-36.5); MEAN CORPUSCULAR VOLUME 83.1 fl (80.0-96.0); MONO # 0.6 10^3/uL (0.0-0.8); MONO % 5.4 % (2.0-8.0); NEUTROPHILS % 58.6 % (36.0-66.0); PLATELET COUNT, AUTOMATED 356 10^3/uL (150-450); RED BLOOD COUNT 4.33 10^6/uL (4.00-5.40); WHITE BLOOD COUNT 10.3 10^3/uL (4.0-10.0)
[2024-01-18 14:39] VITALS: BP 140/77; TEMP 97; O2SAT 97
[2024-01-18] MEDS: ACETAMINOPHEN 500 MG TAB PO ONE (23:47)
[2024-01-19 08:32] VITALS: BP 138/80
[2024-01-19] MEDS: MAALOX 30 ML SUSP *UDC PO PRN (10:34)
[2024-01-19 17:45] VITALS: BP 136/77; TEMP 97.7; O2SAT 95
[2024-01-20 01:34] VITALS: BP 137/58; TEMP 98; O2SAT 99
[2024-01-20] MEDS: traMADol 50 MG TAB PO ONE (02:02)
[2024-01-20 06:27] VITALS: BP 149/65; TEMP 96.9; O2SAT 96
[2024-01-20] MEDS: LURASIDONE 20 MG TAB (LATUDA) PO SCH (08:49)
[2024-01-20 18:55] VITALS: BP 148/76; TEMP 97.6; O2SAT 100
[2024-01-20] MEDS: OLANZapine ORAL DISINTEGRATING TAB 5MG PO ONE (19:28)
[2024-01-20 19:32] VITALS: BP 136/87
[2024-01-21 06:10] VITALS: BP 116/57; TEMP 96.4; O2SAT 98
[2024-01-21 09:44] LABS: BASO % 0.3 % (0.0-1.0); EOS # 0.2 10^3/uL (0.0-0.5); EOS % 2.3 % (0.0-3.0); HEMOGLOBIN 10.5 g/dl (12.0-15.5); LYMPH # 3.6 10^3/uL (1.5-5.0); LYMPH % 39.9 % (24.0-44.0); MEAN CORPUSCULAR HEMOGLOBIN 24.6 pg (27.0-33.0); MEAN CORPUSCULAR HGB CONC 29.2 g/dl (32.0-36.5); MEAN CORPUSCULAR VOLUME 84.5 fl (80.0-96.0); MONO # 0.7 10^3/uL (0.0-0.8); MONO % 7.7 % (2.0-8.0); NEUTROPHILS # 4.5 10^3/uL (1.5-8.5); NEUTROPHILS % 49.4 % (36.0-66.0); PLATELET COUNT, AUTOMATED 345 10^3/uL (150-450); RED BLOOD COUNT 4.26 10^6/uL (4.00-5.40); WHITE BLOOD COUNT 9.1 10^3/uL (4.0-10.0)
[2024-01-21 14:06] VITALS: BP 145/69; TEMP 97.2; O2SAT 99
[2024-01-21] MEDS: OLANZapine ORAL DISINTEGRATING TAB 5MG PO STA (23:07)
[2024-01-21] MEDS: LORazepam 1 MG TAB PO STA (23:07)
[2024-01-21] MEDS: HALOPERIDOL 5MG/ML 1ML VIAL IM STA ×2 (23:27→23:51)
[2024-01-21] MEDS: LORazepam 2 MG/ML 1ML VIAL IM STA ×2 (23:28→23:51)
[2024-01-21 23:50] VITALS: BP 128/60; TEMP 97.7; O2SAT 96
[2024-01-22] VITALS (8 sets, daily range): BP systolic 133–147; BP diastolic 60–77; TEMP 97.4–97.9; O2SAT 96–99
[2024-01-22] MEDS: HALOPERIDOL 5MG/ML 1ML VIAL IM STA (21:10)
[2024-01-22] MEDS: LORazepam 2 MG/ML 1ML VIAL IM STA (21:10)
[2024-01-23 14:21] VITALS: BP 130/76; TEMP 97.5; O2SAT 98
[2024-01-23] MEDS: BACITRACIN OINTMENT 30GM TUBE TOP PRN (15:11)
[2024-01-24] MEDS: QUEtiapine FUMARATE 50MG TAB PO ONE (01:22)
[2024-01-24] MEDS: OLANZapine ORAL DISINTEGRATING TAB 5MG PO PRN (15:15)
[2024-01-24 18:28] VITALS: BP 138/74; TEMP 97.7
[2024-01-25 08:36] VITALS: BP 137/85
[2024-01-25] MEDS: LURASIDONE 20 MG TAB (LATUDA) PO SCH (08:39)
[2024-01-25 14:00] VITALS: BP 122/74; TEMP 98
[2024-01-25 14:40] VITALS: BP 122/74; TEMP 98
[2024-01-25 15:29] VITALS: BP 122/69; TEMP 96.9
[2024-01-25] MEDS: METOCLOPRAMIDE 10MG TAB PO ONE (17:06)
[2024-01-25] MEDS: KETOROLAC TROMETHAMINE 10 MG TAB PO ONE (17:21)
[2024-01-26] MEDS: methocarbamoL 750 MG TAB PO PRN (01:23)
[2024-01-26] MEDS ORDERED: LATU20TA PO (08:42)
[2024-01-26] MEDS ORDERED: METH-1165 PO (08:42)
[2024-01-26] MEDS ORDERED: HYDR-3490 PO (08:42)
[2024-01-26 09:33] VITALS: BP 139/70
== END 2024-01-26 11:06 | disposition home or self-care (01) | DRG 751 ==
LOC: M ED 11:55 → M ED INP 11:56 → M PSY 14:36
PROVIDERS: ADMIT Psychiatry & Neurology Psychiatry; ATTEND Student in an Organized Health Care Education/Training Program
DX: F33.1 Major depressive disorder, recurrent, moderate (principal); I10 Essential (primary) hypertension; R45.851 Suicidal ideations; F43.10 Post-traumatic stress disorder, unspecified; F60.7 Dependent personality disorder; F41.9 Anxiety disorder, unspecified; J45.909 Unspecified asthma, uncomplicated; Z79.899 Other long term (current) drug therapy; R60.9 Edema, unspecified; R51.9 Headache, unspecified

== ENCOUNTER 2024-01-27 15:00 | Outpatient (CLI) | payer OTHER ==
[2024-01-27 15:00] VITALS: BP 138/76; O2SAT 98
[~2024-01-27 15:00] MED LIST changes: +ACETAMINOPHEN TAB 650MG DOSE (2X325MG) PO ONE; +DIVA500T94 PO; +HYDR-3490 PO; +IRON SUCROSE 200 MG in NS 100 ML OVER 1 HR IV ONE; +METH-1165 PO; +VENL225T32 PO; +dexAMETHasone 20MG/5ML VIAL IV ONE; +diphenhydrAMINE 25MG CAP PO ONE
[2024-01-27] MEDS: IRON SUCROSE 200 MG in NS 100 ML OVER 1 HR IV ONE (15:06)
[2024-01-27 16:07] VITALS: BP 119/56; O2SAT 97
== END 2024-01-27 16:15 ==
LOC: M INFU 15:00
PROVIDERS: ATTEND Internal Medicine Medical Oncology
DX: D50.9 Iron deficiency anemia, unspecified (principal)
CPT/HCPCS: 96365; J1756

== ENCOUNTER 2024-01-30 14:32 | Emergency (ER) | payer OTHER ==
[~2024-01-30] VITALS: Ht 160 cm; Wt 163.6 kg
[~2024-01-30 14:32] MED LIST changes: -ACETAMINOPHEN TAB 650MG DOSE (2X325MG) PO ONE; -IRON SUCROSE 200 MG in NS 100 ML OVER 1 HR IV ONE; -dexAMETHasone 20MG/5ML VIAL IV ONE; -diphenhydrAMINE 25MG CAP PO ONE
[2024-01-30 15:58] LABS: BASO % 0.4 % (0.0-1.0); EOS # 0.1 10^3/uL (0.0-0.5); EOS % 0.7 % (0.0-3.0); HEMATOCRIT 36.6 % (36.0-47.0); HEMOGLOBIN 11.1 g/dl (12.0-15.5); LYMPH # 2.9 10^3/uL (1.5-5.0); LYMPH % 28.7 % (24.0-44.0); MEAN CORPUSCULAR HEMOGLOBIN 25.1 pg (27.0-33.0); MEAN CORPUSCULAR HGB CONC 30.3 g/dl (32.0-36.5); MEAN CORPUSCULAR VOLUME 82.8 fl (80.0-96.0); MONO # 0.7 10^3/uL (0.0-0.8); MONO % 6.3 % (2.0-8.0); NEUTROPHILS # 6.5 10^3/uL (1.5-8.5); NEUTROPHILS % 63.6 % (36.0-66.0); PLATELET COUNT, AUTOMATED 349 10^3/uL (150-450); RED BLOOD COUNT 4.42 10^6/uL (4.00-5.40); WHITE BLOOD COUNT 10.3 10^3/uL (4.0-10.0)
[2024-01-30 16:17] LABS: BLOOD UREA NITROGEN 16 MG/DL (9-23); CALCIUM LEVEL 9.1 MG/DL (8.5-10.1); CARBON DIOXIDE LEVEL 30 MMOL/L (20-31); CHLORIDE LEVEL 103 MMOL/L (98-107); CREATININE FOR GFR 0.62 MG/DL (0.55-1.30); GLOMERULAR FILTRATION RATE > 60.0 (>60); GLUCOSE, FASTING 84 MG/DL (60-100); POTASSIUM SERUM 4.2 MMOL/L (3.5-5.1); SODIUM LEVEL 139 MMOL/L (136-145)
[2024-01-30 16:21] LABS: HCG, SERUM QUALITATIVE NEGATIVE (NEGATIVE)
[2024-01-30 16:22] LABS: THYROID STIMULATING HORMONE 0.947 uIU/ML (0.55-4.78)
[2024-01-30 17:00] VITALS: BP 115/64
[2024-01-30 17:17] VITALS: TEMP 98; O2SAT 100
[2024-01-30] MEDS ORDERED: HOLTER MONITOR XX (17:21)
[2024-01-31] MEDS ORDERED: HYDR-3490 PO (01:00)
[2024-01-31] MEDS ORDERED: TRAZ-186 PO (01:00)
[2024-01-31] MEDS ORDERED: LURA40TA2 PO (01:00)
== END 2024-01-30 17:43 | disposition home or self-care (01) ==
LOC: M ED 14:32
DX: R00.2 Palpitations (principal); I10 Essential (primary) hypertension; F43.10 Post-traumatic stress disorder, unspecified; F31.9 Bipolar disorder, unspecified; F17.200 Nicotine dependence, unspecified, uncomplicated; Z79.52 Long term (current) use of systemic steroids; Z79.83 Long term (current) use of bisphosphonates; Z79.899 Other long term (current) drug therapy; Z79.811 Long term (current) use of aromatase inhibitors

== ENCOUNTER 2024-01-30 22:50 | Inpatient (IN) | payer MEDICAID, OTHER ==
[~2024-01-30] VITALS: Ht 160 cm; Wt 159.0 kg
[~2024-01-30 22:50] MED LIST changes: +HOLTER MONITOR XX
[2024-01-31 00:54] LABS: HEMATOCRIT 36.1 % (36.0-47.0); HEMOGLOBIN 10.9 g/dl (12.0-15.5); MEAN CORPUSCULAR HEMOGLOBIN 25.1 pg (27.0-33.0); MEAN CORPUSCULAR HGB CONC 30.2 g/dl (32.0-36.5); MEAN CORPUSCULAR VOLUME 83.2 fl (80.0-96.0); PLATELET COUNT, AUTOMATED 369 10^3/uL (150-450); RED BLOOD COUNT 4.34 10^6/uL (4.00-5.40); WHITE BLOOD COUNT 10.5 10^3/uL (4.0-10.0)
[2024-01-31] MEDS ORDERED: HOME MED LIST COMPLETE! XX SCH (01:00)
[2024-01-31] MEDS ORDERED: TRAZ-186 PO (01:00)
[2024-01-31] MEDS ORDERED: HYDR-3490 PO (01:00)
[2024-01-31] MEDS ORDERED: LURA40TA2 PO (01:00)
[2024-01-31 01:27] LABS: ETHYL ALCOHOL (ETHANOL) < 0.003 % (0.000-0.010)
[2024-01-31 01:29] LABS: ALBUMIN 3.3 G/DL (3.2-5.2); ALKALINE PHOSPHATASE 77 U/L (46-116); ALT/SGPT 22 U/L (7.0-40); AST/SGOT 13 U/L (<34); BILIRUBIN,DIRECT < 0.1 MG/DL (<0.4); BILIRUBIN,TOTAL 0.3 MG/DL (0.3-1.2); BLOOD UREA NITROGEN 21 MG/DL (9-23); CALCIUM LEVEL 9.4 MG/DL (8.5-10.1); CARBON DIOXIDE LEVEL 30 MMOL/L (20-31); CHLORIDE LEVEL 102 MMOL/L (98-107); CREATININE FOR GFR 0.62 MG/DL (0.55-1.30); GLOMERULAR FILTRATION RATE > 60.0 (>60); GLUCOSE, FASTING 83 MG/DL (60-100); POTASSIUM SERUM 4.1 MMOL/L (3.5-5.1); SALICYLATE LEVEL < 3.0 MG/DL (<30); SODIUM LEVEL 138 MMOL/L (136-145); TOTAL PROTEIN 6.4 G/DL (5.7-8.2)
[2024-01-31 01:31] LABS: THYROID STIMULATING HORMONE 1.804 uIU/ML (0.55-4.78)
[2024-01-31 01:36] LABS: HCG, SERUM QUALITATIVE NEGATIVE (NEGATIVE)
[2024-01-31 12:41] LABS: AMPHETAMINES LEVEL URINE NEGATIVE (NEGATIVE); BARBITURATES URINE NEGATIVE (NEGATIVE)
[2024-01-31 12:42] LABS: BENZODIAZEPINES URINE NEGATIVE (NEGATIVE); CANNABINOIDS URINE NEGATIVE (NEGATIVE); COCAINE METABOLITE URINE NEGATIVE (NEGATIVE); METHADONE URINE NEGATIVE (NEGATIVE); OPIATES URINE NEGATIVE (NEGATIVE); PHENCYCLIDINE URINE NEGATIVE (NEGATIVE)
[2024-01-31] MEDS ORDERED: MOM 30ML SUSPENSION UDC PO PRN (12:55)
[2024-01-31 15:18] VITALS: BP 120/59; TEMP 97.4; O2SAT 94
[2024-01-31] MEDS: NICOTINE 21MG/24HR 1 EA TRANSDERMAL TD SCH (18:06)
[2024-01-31] MEDS ORDERED: ALBUTEROL SULFATE 2.5MG/0.5ML INH NEB SOLN INH PRN (18:25)
[2024-01-31] MEDS: diphenhydrAMINE 25MG CAP PO PRN (19:06)
[2024-01-31] MEDS: traZODone 50 MG TAB PO PRN (21:22)
[2024-01-31] MEDS: PRAZOSIN 1 MG CAP PO SCH (21:23)
[2024-01-31] MEDS: MAALOX 30 ML SUSP *UDC PO PRN (22:32)
[2024-02-01 06:24] VITALS: BP 134/93; TEMP 97.2; O2SAT 100
[2024-02-01] MEDS: ACETAMINOPHEN TAB 650MG DOSE (2X325MG) PO PRN (06:27)
[2024-02-01] MEDS ORDERED: traZODone 50 MG TAB PO PRN (08:10)
[2024-02-01] MEDS: VENLAFAXINE **XR** 75MG CAPSULE PO SCH (08:36)
[2024-02-01] MEDS: atenoloL 25 MG TAB PO SCH (08:36)
[2024-02-01] MEDS ORDERED: NICOTINE 21MG/24HR 1 EA TRANSDERMAL TD SCH (09:00)
[2024-02-01] MEDS ORDERED: VENLAFAXINE **XR** 75MG CAPSULE PO SCH (09:00)
[2024-02-01 14:54] LABS: CHOLESTEROL RISK RATIO 5.89 (<5); HDL CHOLESTEROL 31.7 MG/DL (>40); LDL CHOLESTEROL 111.7 MG/DL (<100); NON-HDL-C 155.3 MG/DL
[2024-02-01 16:25] VITALS: BP 121/84; TEMP 97
[2024-02-01] MEDS: LURASIDONE 20 MG TAB (LATUDA) PO SCH (17:43)
[2024-02-01] MEDS ORDERED: LURASIDONE HCL 40MG TAB (LATUDA) PO SCH (18:00)
[2024-02-01] MEDS: OLANZapine 5 MG TAB PO PRN (21:28)
[2024-02-02 08:42] VITALS: BP 138/69
[2024-02-02 17:41] VITALS: BP 129/58; TEMP 97.3
[2024-02-03] MEDS: DIVALPROEX 500 MG TAB PO SCH (10:27)
[2024-02-03] MEDS: FERROUS GLUCONATE 324 MG TAB PO ONE (12:07)
[2024-02-03] MEDS: IBUPROFEN 400MG TAB PO PRN (17:19)
[2024-02-03 17:45] VITALS: BP 166/74; TEMP 97.4; O2SAT 100
[2024-02-03] MEDS: BACITRACIN OINTMENT 30GM TUBE TOP SCH (20:19)
[2024-02-03] MEDS ORDERED: DIVALPROEX 500 MG TAB PO SCH (21:00)
[2024-02-04] MEDS: FERROUS GLUCONATE 324 MG TAB PO SCH (09:05)
[2024-02-04] MEDS: CEPACOL LOZENGE PO PRN (10:09)
[2024-02-04 16:39] VITALS: BP 122/60; TEMP 98.3; O2SAT 100
[2024-02-06] MEDS: CHLORASEPTIC SPRAY MT PRN (10:29)
[2024-02-06 16:14] VITALS: BP 140/70; TEMP 97.8; O2SAT 96
[2024-02-06] MEDS: PENICILLIN V POTASSIUM 500 MG TAB PO SCH (21:47)
[2024-02-07 08:58] VITALS: BP 137/81
[2024-02-07 16:52] VITALS: BP 142/81; TEMP 97.9; O2SAT 100
[2024-02-07] MEDS: NYSTATIN 100,000 UNITS/GM TOPICAL PWD 15GM TOP SCH (21:14)
[2024-02-08] MEDS: LORazepam 2 MG/ML 1ML VIAL IM STA (11:29)
[2024-02-08] MEDS: diphenhydrAMINE 50MG/ML VIAL IM STA (11:29)
[2024-02-08] MEDS: HALOPERIDOL 5MG/ML 1ML VIAL IM STA (11:30)
[2024-02-08 16:09] VITALS: BP 107/59; TEMP 97
[2024-02-09 09:33] VITALS: BP 125/86
[2024-02-09] MEDS ORDERED: NYST10006 TOP (09:51)
[2024-02-09] MEDS ORDERED: DEPA1TAB3 PO (09:51)
[2024-02-09] MEDS ORDERED: LATU20TA PO (09:51)
[2024-02-09] MEDS ORDERED: PENI500T PO (09:51)
[2024-02-09] MEDS ORDERED: FERR32TA PO (09:51)
[2024-02-10] MEDS ORDERED: LATU1TAB PO (13:20)
== END 2024-02-09 12:31 | disposition home or self-care (01) | DRG 751 ==
LOC: M ED 22:50 → M ED INP 01-31 12:53 → M PSY 01-31 14:56
PROVIDERS: ADMIT Student in an Organized Health Care Education/Training Program; ATTEND Student in an Organized Health Care Education/Training Program
DX: F33.1 Major depressive disorder, recurrent, moderate (principal); E66.01 Morbid (severe) obesity due to excess calories; R45.851 Suicidal ideations; F60.3 Borderline personality disorder; F60.7 Dependent personality disorder; F41.9 Anxiety disorder, unspecified; Z79.899 Other long term (current) drug therapy; I10 Essential (primary) hypertension; J45.909 Unspecified asthma, uncomplicated

== ENCOUNTER 2024-02-10 15:00 | Outpatient (CLI) | payer OTHER ==
[~2024-02-10] VITALS: Ht 160 cm; Wt 164.0 kg
[2024-02-10 15:00] VITALS: BP 107/67; O2SAT 96
[~2024-02-10 15:00] MED LIST changes: +ACETAMINOPHEN TAB 650MG DOSE (2X325MG) PO ONE; +FERR32TA PO; +LURA40TA2 PO; +NYST10006 TOP; +PENI500T PO; +dexAMETHasone 20MG/5ML VIAL IV ONE; +diphenhydrAMINE 25MG CAP PO ONE
[2024-02-10] MEDS: IRON SUCROSE 200 MG in NS 100 ML OVER 1 HR IV ONE (15:19)
[2024-02-10 16:27] VITALS: BP 139/74; O2SAT 99
== END 2024-02-10 16:27 | disposition home or self-care (01) ==
LOC: M INFU 15:00
PROVIDERS: ATTEND Internal Medicine Medical Oncology
DX: D50.9 Iron deficiency anemia, unspecified (principal)
CPT/HCPCS: 96365; J1756

== ENCOUNTER 2024-02-17 15:00 | Outpatient (CLI) | payer OTHER ==
[2024-02-17 15:00] VITALS: BP 134/82; O2SAT 99
[~2024-02-17 15:00] MED LIST changes: -ACETAMINOPHEN TAB 650MG DOSE (2X325MG) PO ONE; -dexAMETHasone 20MG/5ML VIAL IV ONE; -diphenhydrAMINE 25MG CAP PO ONE
[2024-02-17] MEDS: dexAMETHasone 20MG/5ML VIAL IV ONE (15:18)
[2024-02-17] MEDS: diphenhydrAMINE 25MG CAP PO ONE (15:18)
[2024-02-17] MEDS: ACETAMINOPHEN TAB 650MG DOSE (2X325MG) PO ONE (15:18)
[2024-02-17] MEDS: IRON SUCROSE 200 MG in NS 100 ML OVER 1 HR IV ONE (15:19)
[2024-02-17 16:20] VITALS: BP 122/84; O2SAT 99
== END 2024-02-17 16:20 | disposition home or self-care (01) ==
LOC: M INFU 15:00
PROVIDERS: ATTEND Internal Medicine Medical Oncology
DX: D50.9 Iron deficiency anemia, unspecified (principal)
CPT/HCPCS: 96365; J1756

== ENCOUNTER 2024-02-22 04:32 | Emergency (ER) | payer OTHER ==
[~2024-02-22] VITALS: Ht 160 cm; Wt 135.0 kg
[2024-02-22 05:07] LABS: HEMATOCRIT 39.3 % (36.0-47.0); HEMOGLOBIN 11.9 g/dl (12.0-15.5); MEAN CORPUSCULAR HEMOGLOBIN 25.4 pg (27.0-33.0); MEAN CORPUSCULAR HGB CONC 30.3 g/dl (32.0-36.5); PLATELET COUNT, AUTOMATED 354 10^3/uL (150-450); RED BLOOD COUNT 4.68 10^6/uL (4.00-5.40); WHITE BLOOD COUNT 14.5 10^3/uL (4.0-10.0)
[2024-02-22 05:37] LABS: ETHYL ALCOHOL (ETHANOL) 0.005 % (0.000-0.010)
[2024-02-22 05:38] LABS: SALICYLATE LEVEL < 3.0 MG/DL (<30)
[2024-02-22 05:39] LABS: ALBUMIN 3.3 G/DL (3.2-5.2); ALKALINE PHOSPHATASE 81 U/L (46-116); ALT/SGPT 17 U/L (7.0-40); AST/SGOT 9 U/L (<34); BILIRUBIN,DIRECT < 0.1 MG/DL (<0.4); BILIRUBIN,TOTAL 0.3 MG/DL (0.3-1.2); BLOOD UREA NITROGEN 18 MG/DL (9-23); CALCIUM LEVEL 8.8 MG/DL (8.5-10.1); CARBON DIOXIDE LEVEL 30 MMOL/L (20-31); CHLORIDE LEVEL 101 MMOL/L (98-107); CREATININE FOR GFR 0.65 MG/DL (0.55-1.30); GLOMERULAR FILTRATION RATE > 60.0 (>60); GLUCOSE, FASTING 98 MG/DL (60-100); POTASSIUM SERUM 3.6 MMOL/L (3.5-5.1); SODIUM LEVEL 139 MMOL/L (136-145)
[2024-02-22 05:41] LABS: THYROID STIMULATING HORMONE 3.345 uIU/ML (0.55-4.78)
[2024-02-22 07:21] LABS: AMPHETAMINES LEVEL URINE NEGATIVE (NEGATIVE); BARBITURATES URINE NEGATIVE (NEGATIVE); BENZODIAZEPINES URINE NEGATIVE (NEGATIVE); COCAINE METABOLITE URINE NEGATIVE (NEGATIVE); METHADONE URINE NEGATIVE (NEGATIVE); OPIATES URINE NEGATIVE (NEGATIVE); PHENCYCLIDINE URINE NEGATIVE (NEGATIVE)
[2024-02-22 07:22] LABS: CANNABINOIDS URINE NEGATIVE (NEGATIVE)
[2024-02-22 07:54] LABS: URINE PREG TEST NEGATIVE (NEGATIVE)
[2024-02-22] MEDS ORDERED: PRAZ2CAP40 PO (09:04)
[2024-02-22] MEDS ORDERED: FERR32TA PO (09:04)
[2024-02-22] MEDS ORDERED: LURA60TA PO (09:08)
[2024-02-22] MEDS ORDERED: PENI500T PO (09:08)
[2024-02-22] MEDS ORDERED: HOME MED LIST COMPLETE! XX SCH (09:10)
[2024-02-22 10:14] VITALS: TEMP 98.9
[2024-02-22 11:27] VITALS: BP 128/70; O2SAT 99
== END 2024-02-22 11:30 | disposition home or self-care (01) ==
LOC: M ED 04:32
DX: Z04.6 Encounter for general psychiatric examination, requested by authority (principal); F32.A Depression, unspecified; J45.909 Unspecified asthma, uncomplicated; I10 Essential (primary) hypertension; E66.9 Obesity, unspecified; F60.3 Borderline personality disorder; F43.10 Post-traumatic stress disorder, unspecified; F60.7 Dependent personality disorder; Z79.52 Long term (current) use of systemic steroids; Z79.899 Other long term (current) drug therapy

== ENCOUNTER 2024-02-23 16:23 | Emergency (ER) | payer OTHER ==
[~2024-02-23] VITALS: Ht 160 cm; Wt 163.6 kg
[~2024-02-23 16:23] MED LIST changes: +LURA60TA PO; +PRAZ2CAP40 PO
[2024-02-23 16:41] VITALS: BP 134/70; TEMP 97.1; O2SAT 97
== END 2024-02-23 18:33 | disposition home or self-care (01) ==
LOC: EDBD 16:23 → M ED 16:23
DX: S93.402A Sprain of unspecified ligament of left ankle, initial encounter (principal); W10.1XXA Fall (on)(from) sidewalk curb, initial encounter; I10 Essential (primary) hypertension; E03.9 Hypothyroidism, unspecified; F31.9 Bipolar disorder, unspecified; F32.9 Major depressive disorder, single episode, unspecified; Z79.52 Long term (current) use of systemic steroids; Z79.811 Long term (current) use of aromatase inhibitors; Z79.899 Other long term (current) drug therapy; Y92.410 Unspecified street and highway as the place of occurrence of the external cause; Y93.89 Activity, other specified; Y99.9 Unspecified external cause status

== ENCOUNTER 2024-03-03 05:34 | Inpatient (IN) | payer MEDICAID, OTHER ==
[~2024-03-03] VITALS: Ht 170.2 cm; Wt 137.0 kg
[2024-03-03 06:19] LABS: HEMATOCRIT 40.4 % (36.0-47.0); HEMOGLOBIN 12.4 g/dl (12.0-15.5); MEAN CORPUSCULAR HEMOGLOBIN 25.9 pg (27.0-33.0); MEAN CORPUSCULAR HGB CONC 30.7 g/dl (32.0-36.5); MEAN CORPUSCULAR VOLUME 84.5 fl (80.0-96.0); PLATELET COUNT, AUTOMATED 327 10^3/uL (150-450); RED BLOOD COUNT 4.78 10^6/uL (4.00-5.40); WHITE BLOOD COUNT 10.7 10^3/uL (4.0-10.0)
[2024-03-03 06:40] LABS: HCG, SERUM QUALITATIVE NEGATIVE (NEGATIVE)
[2024-03-03 06:47] LABS: ETHYL ALCOHOL (ETHANOL) 0.005 % (0.000-0.010)
[2024-03-03 06:49] LABS: ALBUMIN 3.4 G/DL (3.2-5.2); ALKALINE PHOSPHATASE 80 U/L (46-116); ALT/SGPT 26 U/L (7.0-40); AST/SGOT 16 U/L (<34); BILIRUBIN,DIRECT < 0.1 MG/DL (<0.4); BILIRUBIN,TOTAL 0.3 MG/DL (0.3-1.2); BLOOD UREA NITROGEN 18 MG/DL (9-23); CALCIUM LEVEL 9.5 MG/DL (8.5-10.1); CARBON DIOXIDE LEVEL 24 MMOL/L (20-31); CHLORIDE LEVEL 104 MMOL/L (98-107); CREATININE FOR GFR 0.53 MG/DL (0.55-1.30); GLOMERULAR FILTRATION RATE > 60.0 (>60); GLUCOSE, FASTING 85 MG/DL (60-100); POTASSIUM SERUM 4.6 MMOL/L (3.5-5.1); SALICYLATE LEVEL < 3.0 MG/DL (<30); SODIUM LEVEL 136 MMOL/L (136-145); TOTAL PROTEIN 7.5 G/DL (5.7-8.2)
[2024-03-03 06:51] LABS: THYROID STIMULATING HORMONE 1.482 uIU/ML (0.55-4.78)
[2024-03-03] MEDS ORDERED: HOME MED LIST COMPLETE! XX SCH (07:50)
[2024-03-03 09:51] LABS: VALPROIC ACID (DEPAKOTE) 40.6 UG/ML (50.0-100.0)
[2024-03-03] MEDS ORDERED: traZODone 50 MG TAB PO PRN (13:25)
[2024-03-03] MEDS ORDERED: MAALOX 30 ML SUSP *UDC PO PRN (13:25)
[2024-03-03] MEDS ORDERED: MOM 30ML SUSPENSION UDC PO PRN (13:25)
[2024-03-03 18:48] LABS: AMPHETAMINES LEVEL URINE NEGATIVE (NEGATIVE); BARBITURATES URINE NEGATIVE (NEGATIVE); BENZODIAZEPINES URINE NEGATIVE (NEGATIVE); CANNABINOIDS URINE NEGATIVE (NEGATIVE); COCAINE METABOLITE URINE NEGATIVE (NEGATIVE); METHADONE URINE NEGATIVE (NEGATIVE); OPIATES URINE NEGATIVE (NEGATIVE); PHENCYCLIDINE URINE NEGATIVE (NEGATIVE)
[2024-03-04] MEDS: NYSTATIN 100,000 UNITS/GM TOPICAL PWD 15GM TOP SCH (09:00)
[2024-03-04] MEDS ORDERED: ALBUTEROL 90 MCG/ACT 8GM HFA INHALER INH PRN (11:05)
[2024-03-04] MEDS: hydroCHLOROthiazide 12.5 MG CAPSULE PO SCH (12:17)
[2024-03-04] MEDS: atenoloL 25 MG TAB PO SCH (12:17)
[2024-03-04 12:21] VITALS: BP 126/69; TEMP 97.4; O2SAT 98
[2024-03-04] MEDS: LURASIDONE HCL 40MG TAB (LATUDA) PO SCH (18:10)
[2024-03-04] MEDS: DIVALPROEX 250MG *ER* TAB PO SCH (21:00)
[2024-03-04] MEDS: PRAZOSIN 1 MG CAP PO SCH (21:00)
[2024-03-05 06:31] VITALS: BP 103/51; TEMP 96.8; O2SAT 97
[2024-03-05] MEDS: OLANZapine ORAL DISINTEGRATING TAB 5MG PO PRN (07:12)
[2024-03-05] MEDS: VENLAFAXINE **XR** 75MG CAPSULE PO SCH (09:00)
[2024-03-05 16:31] VITALS: BP 140/74; TEMP 98.1; O2SAT 99
[2024-03-06] MEDS: ACETAMINOPHEN TAB 650MG DOSE (2X325MG) PO PRN (06:54)
[2024-03-06 17:26] VITALS: BP 149/97; TEMP 97.3; O2SAT 97
[2024-03-07] MEDS: NICOTINE 21MG/24HR 1 EA TRANSDERMAL TD SCH (11:45)
[2024-03-07] MEDS: diphenhydrAMINE 25MG CAP PO PRN (12:02)
[2024-03-07 17:05] VITALS: TEMP 98.1; O2SAT 100
[2024-03-08 10:01] VITALS: BP 118/72
[2024-03-08] MEDS: IBUPROFEN 400MG TAB PO PRN (10:02)
[2024-03-08 10:03] VITALS: BP 118/72
== END 2024-03-08 13:52 | disposition home or self-care (01) | DRG 751 ==
LOC: M ED 05:34 → M ED INP 13:21 → M PSY 18:38
PROVIDERS: ADMIT Student in an Organized Health Care Education/Training Program; ATTEND Student in an Organized Health Care Education/Training Program
DX: F33.1 Major depressive disorder, recurrent, moderate (principal); E66.01 Morbid (severe) obesity due to excess calories; R45.851 Suicidal ideations; F79 Unspecified intellectual disabilities; F43.10 Post-traumatic stress disorder, unspecified; F60.3 Borderline personality disorder; F60.7 Dependent personality disorder; Z79.899 Other long term (current) drug therapy; I10 Essential (primary) hypertension; D50.9 Iron deficiency anemia, unspecified; J45.909 Unspecified asthma, uncomplicated

== ENCOUNTER 2024-03-24 02:10 | Inpatient (IN) | payer MEDICAID, OTHER ==
[~2024-03-24 02:10] MED LIST changes: +BUPR-597 PO; -BUPR300T92 PO
[2024-03-24 04:36] LABS: HEMATOCRIT 37.2 % (36.0-47.0); HEMOGLOBIN 11.8 g/dl (12.0-15.5); MEAN CORPUSCULAR HEMOGLOBIN 25.9 pg (27.0-33.0); MEAN CORPUSCULAR HGB CONC 31.7 g/dl (32.0-36.5); MEAN CORPUSCULAR VOLUME 81.6 fl (80.0-96.0); PLATELET COUNT, AUTOMATED 358 10^3/uL (150-450); RED BLOOD COUNT 4.56 10^6/uL (4.00-5.40); WHITE BLOOD COUNT 10.5 10^3/uL (4.0-10.0)
[2024-03-24 04:53] LABS: ETHYL ALCOHOL (ETHANOL) 0.004 % (0.000-0.010)
[2024-03-24 04:54] LABS: SALICYLATE LEVEL < 3.0 MG/DL (<30)
[2024-03-24 04:55] LABS: ALBUMIN 3.1 G/DL (3.2-5.2); ALKALINE PHOSPHATASE 85 U/L (46-116); ALT/SGPT 23 U/L (7.0-40); AST/SGOT 11 U/L (<34); BILIRUBIN,DIRECT 0.1 MG/DL (<0.4); BILIRUBIN,TOTAL 0.4 MG/DL (0.3-1.2); BLOOD UREA NITROGEN 14 MG/DL (9-23); CALCIUM LEVEL 9.1 MG/DL (8.5-10.1); CARBON DIOXIDE LEVEL 28 MMOL/L (20-31); CHLORIDE LEVEL 100 MMOL/L (98-107); CREATININE FOR GFR 0.52 MG/DL (0.55-1.30); GLOMERULAR FILTRATION RATE > 60.0 (>60); GLUCOSE, FASTING 90 MG/DL (60-100); POTASSIUM SERUM 3.7 MMOL/L (3.5-5.1); SODIUM LEVEL 135 MMOL/L (136-145); TOTAL PROTEIN 6.6 G/DL (5.7-8.2)
[2024-03-24 04:57] LABS: THYROID STIMULATING HORMONE 0.887 uIU/ML (0.55-4.78)
[2024-03-24 05:01] LABS: HCG, SERUM QUALITATIVE NEGATIVE (NEGATIVE)
[2024-03-24 06:35] LABS: VALPROIC ACID (DEPAKOTE) 32.2 UG/ML (50.0-100.0)
[2024-03-24] MEDS ORDERED: HOME MED LIST COMPLETE! XX SCH (11:30)
[2024-03-24] MEDS ORDERED: diphenhydrAMINE 25MG CAP PO PRN (15:40)
[2024-03-24] MEDS ORDERED: MAALOX 30 ML SUSP *UDC PO PRN (15:40)
[2024-03-24] MEDS ORDERED: MOM 30ML SUSPENSION UDC PO PRN (15:40)
[2024-03-24] MEDS ORDERED: IBUPROFEN 400MG TAB PO PRN (15:40)
[2024-03-24 16:00] VITALS: O2SAT 100
[2024-03-24 16:48] VITALS: BP 135/74; TEMP 96.8
[2024-03-24] MEDS ORDERED: ALBUTEROL 90 MCG/ACT 8GM HFA INHALER INH PRN (18:10)
[2024-03-24] MEDS: LURASIDONE 20 MG TAB (LATUDA) PO SCH (18:40)
[2024-03-24] MEDS: PRAZOSIN 1 MG CAP PO SCH (21:00)
[2024-03-24] MEDS: DIVALPROEX 250MG *ER* TAB PO SCH (21:00)
[2024-03-25] MEDS: atenoloL 25 MG TAB PO SCH (09:00)
[2024-03-25] MEDS: VENLAFAXINE **XR** 75MG CAPSULE PO SCH (09:00)
[2024-03-25] MEDS: FERROUS GLUCONATE 324 MG TAB PO SCH (14:00)
[2024-03-26 21:16] VITALS: BP 144/88
[2024-03-26] MEDS: traZODone 50 MG TAB PO PRN (21:18)
[2024-03-26] MEDS: ACETAMINOPHEN TAB 650MG DOSE (2X325MG) PO PRN (23:19)
[2024-03-27 09:28] VITALS: BP 139/89
[2024-03-28 09:52] VITALS: BP 122/78
[2024-03-28 09:53] VITALS: BP 122/78
== END 2024-03-28 13:54 | disposition home or self-care (01) | DRG 751 ==
LOC: M ED 02:10 → M ED INP 15:40 → M PSY 16:51
PROVIDERS: ADMIT Student in an Organized Health Care Education/Training Program; ATTEND Student in an Organized Health Care Education/Training Program
DX: F33.1 Major depressive disorder, recurrent, moderate (principal); E66.01 Morbid (severe) obesity due to excess calories; R45.851 Suicidal ideations; F60.3 Borderline personality disorder; F60.7 Dependent personality disorder; F43.10 Post-traumatic stress disorder, unspecified; Z79.899 Other long term (current) drug therapy; I10 Essential (primary) hypertension; J45.909 Unspecified asthma, uncomplicated; D64.9 Anemia, unspecified

== ENCOUNTER 2024-05-03 18:02 | Inpatient (IN) | payer MEDICAID, OTHER ==
[~2024-05-03] VITALS: Ht 160 cm; Wt 165.6 kg
[2024-05-03 21:35] LABS: HEMATOCRIT 39.9 % (36.0-47.0); HEMOGLOBIN 12.5 g/dl (12.0-15.5); MEAN CORPUSCULAR HEMOGLOBIN 26.4 pg (27.0-33.0); MEAN CORPUSCULAR HGB CONC 31.3 g/dl (32.0-36.5); MEAN CORPUSCULAR VOLUME 84.2 fl (80.0-96.0); PLATELET COUNT, AUTOMATED 292 10^3/uL (150-450); RED BLOOD COUNT 4.74 10^6/uL (4.00-5.40); WHITE BLOOD COUNT 11.6 10^3/uL (4.0-10.0)
[2024-05-03 22:00] LABS: ETHYL ALCOHOL (ETHANOL) < 0.003 % (0.000-0.010)
[2024-05-03 22:01] LABS: SALICYLATE LEVEL < 3.0 MG/DL (<30)
[2024-05-03 22:02] LABS: ALKALINE PHOSPHATASE 82 U/L (46-116); ALT/SGPT 19 U/L (7.0-40); AST/SGOT < 8 U/L (<34); BILIRUBIN,DIRECT < 0.1 MG/DL (<0.4); BILIRUBIN,TOTAL 0.3 MG/DL (0.3-1.2); BLOOD UREA NITROGEN 15 MG/DL (9-23); CALCIUM LEVEL 9.2 MG/DL (8.5-10.1); CARBON DIOXIDE LEVEL 29 MMOL/L (20-31); CHLORIDE LEVEL 106 MMOL/L (98-107); CREATININE FOR GFR 0.56 MG/DL (0.55-1.30); GLOMERULAR FILTRATION RATE > 60.0 (>60); GLUCOSE, FASTING 86 MG/DL (60-100); HCG, SERUM QUALITATIVE NEGATIVE (NEGATIVE); POTASSIUM SERUM 4.4 MMOL/L (3.5-5.1); SODIUM LEVEL 140 MMOL/L (136-145); TOTAL PROTEIN 6.5 G/DL (5.7-8.2)
[2024-05-03 22:03] LABS: THYROID STIMULATING HORMONE 0.459 uIU/ML (0.55-4.78)
[2024-05-04] MEDS ORDERED: HOME MED LIST COMPLETE! XX SCH (04:55)
[2024-05-04 10:23] LABS: AMPHETAMINES LEVEL URINE NEGATIVE (NEGATIVE); BARBITURATES URINE NEGATIVE (NEGATIVE); BENZODIAZEPINES URINE NEGATIVE (NEGATIVE); CANNABINOIDS URINE NEGATIVE (NEGATIVE); COCAINE METABOLITE URINE NEGATIVE (NEGATIVE); METHADONE URINE NEGATIVE (NEGATIVE); OPIATES URINE NEGATIVE (NEGATIVE); PHENCYCLIDINE URINE NEGATIVE (NEGATIVE)
[2024-05-04] MEDS ORDERED: MAALOX 30 ML SUSP *UDC PO PRN (11:25)
[2024-05-04] MEDS ORDERED: ACETAMINOPHEN TAB 650MG DOSE (2X325MG) PO PRN (11:25)
[2024-05-04] MEDS ORDERED: IBUPROFEN 400MG TAB PO PRN (11:25)
[2024-05-04] MEDS ORDERED: MOM 30ML SUSPENSION UDC PO PRN (11:25)
[2024-05-05] MEDS: VENLAFAXINE **XR** 75MG CAPSULE PO SCH (09:00)
[2024-05-05] MEDS: atenoloL 25 MG TAB PO SCH (09:00)
[2024-05-05] MEDS: DIVALPROEX 500 MG TAB PO SCH (09:00)
[2024-05-05] MEDS: hydroCHLOROthiazide 12.5 MG CAPSULE PO SCH (09:00)
[2024-05-05] MEDS ORDERED: ALBUTEROL 90 MCG/ACT 8GM HFA INHALER INH PRN (09:45)
[2024-05-05] MEDS ORDERED: traZODone 50 MG TAB PO PRN (09:45)
[2024-05-05] MEDS: TUBERCULIN PPD 5 UNITS/0.1 ML ID ONE (11:46)
[2024-05-05 16:21] VITALS: BP 133/79; TEMP 97.6; O2SAT 98
[2024-05-05] MEDS ORDERED: LURASIDONE HCL 40MG TAB (LATUDA) PO SCH (18:00)
[2024-05-05] MEDS: LURASIDONE 20 MG TAB (LATUDA) PO SCH (18:00)
[2024-05-05 21:24] VITALS: BP 132/99
[2024-05-05] MEDS: PRAZOSIN 1 MG CAP PO SCH (21:26)
[2024-05-07] MEDS: PPD DOCUMENTATION ENTRY MISC XX SCH (09:05)
[2024-05-07] MEDS: OLANZapine ORAL DISINTEGRATING TAB 5MG PO PRN (22:34)
[2024-05-07] MEDS: diphenhydrAMINE 25MG CAP PO PRN (22:34)
[2024-05-07] MEDS: traZODone 50 MG TAB PO PRN (22:35)
[2024-05-08 10:31] VITALS: BP 142/81
[2024-05-08 17:50] VITALS: BP 127/62; TEMP 97.5; O2SAT 97
[2024-05-09 06:08] VITALS: BP 114/68; TEMP 99.1; O2SAT 95
[2024-05-09 18:28] VITALS: BP 141/86; TEMP 98.8
[2024-05-10] MEDS ORDERED: VENL225T32 PO (09:17)
[2024-05-10] MEDS ORDERED: TRAZ-186 PO (09:17)
[2024-05-10] MEDS ORDERED: PRAZ2CAP40 PO (09:17)
[2024-05-10] MEDS ORDERED: LURA60TA PO (09:17)
[2024-05-10] MEDS ORDERED: DIVA500T94 PO (09:17)
[2024-05-10] MEDS ORDERED: AMBI10TA PO (09:17)
[2024-05-10 09:18] VITALS: BP 131/76
[2024-05-10 09:25] VITALS: BP 131/76
== END 2024-05-10 10:30 | disposition home or self-care (01) | DRG 751 ==
LOC: M ED 18:02 → M ED INP 05-04 11:25 → M PSY 05-04 21:53
PROVIDERS: ADMIT Student in an Organized Health Care Education/Training Program; ATTEND Student in an Organized Health Care Education/Training Program
DX: F33.1 Major depressive disorder, recurrent, moderate (principal); I10 Essential (primary) hypertension; R45.851 Suicidal ideations; F60.3 Borderline personality disorder; F43.10 Post-traumatic stress disorder, unspecified; F60.7 Dependent personality disorder; Z79.899 Other long term (current) drug therapy; J45.909 Unspecified asthma, uncomplicated; F41.9 Anxiety disorder, unspecified; D72.829 Elevated white blood cell count, unspecified

== ENCOUNTER → 2024-06-12 | Outpatient (CLI) | payer OTHER ==
[2024-06-12 18:34] LABS: HEMATOCRIT 39.2 % (36.0-47.0); HEMOGLOBIN 12.5 g/dl (12.0-15.5); MEAN CORPUSCULAR HEMOGLOBIN 27.2 pg (27.0-33.0); MEAN CORPUSCULAR HGB CONC 31.9 g/dl (32.0-36.5); MEAN CORPUSCULAR VOLUME 85.4 fl (80.0-96.0); PLATELET COUNT, AUTOMATED 127 10^3/uL (150-450); RED BLOOD COUNT 4.59 10^6/uL (4.00-5.40); WHITE BLOOD COUNT 7.6 10^3/uL (4.0-10.0)
[2024-06-12 18:46] LABS: C REACTIVE PROTEIN QUANTITATIV 3.3 MG/DL (<1.0)
[2024-06-12 18:51] LABS: THYROID STIMULATING HORMONE 1.335 uIU/ML (0.55-4.78)
[2024-06-12 18:52] LABS: TOTAL 25(OH) VITAMIN D 31.4 NG/ML (20.0-100.0)
[2024-06-12 18:54] LABS: HEMOGLOBIN A1c 5.6 % (4.0-6.0)
== END ==
LOC: M LAB 16:30
PROVIDERS: ATTEND Internal Medicine Hematology
DX: N92.5 Other specified irregular menstruation (principal); E03.9 Hypothyroidism, unspecified

== ENCOUNTER 2024-06-27 03:07 | Inpatient (IN) | payer MEDICAID, OTHER ==
[~2024-06-27] VITALS: Ht 160 cm; Wt 163.6 kg
[2024-06-27 03:38] LABS: HEMATOCRIT 43.2 % (36.0-47.0); HEMOGLOBIN 13.4 g/dl (12.0-15.5); MEAN CORPUSCULAR HEMOGLOBIN 25.9 pg (27.0-33.0); MEAN CORPUSCULAR VOLUME 83.4 fl (80.0-96.0); PLATELET COUNT, AUTOMATED 339 10^3/uL (150-450); RED BLOOD COUNT 5.18 10^6/uL (4.00-5.40); WHITE BLOOD COUNT 10.8 10^3/uL (4.0-10.0)
[2024-06-27 04:08] LABS: ETHYL ALCOHOL (ETHANOL) 0.009 % (0.000-0.010)
[2024-06-27 04:10] LABS: ALBUMIN 3.3 G/DL (3.2-5.2); ALKALINE PHOSPHATASE 95 U/L (46-116); ALT/SGPT 29 U/L (7.0-40); AST/SGOT 14 U/L (<34); BILIRUBIN,DIRECT < 0.1 MG/DL (<0.4); BILIRUBIN,TOTAL 0.3 MG/DL (0.3-1.2); BLOOD UREA NITROGEN 10 MG/DL (9-23); CARBON DIOXIDE LEVEL 26 MMOL/L (20-31); CHLORIDE LEVEL 107 MMOL/L (98-107); CREATININE FOR GFR 0.53 MG/DL (0.55-1.30); GLOMERULAR FILTRATION RATE > 60.0 (>60); GLUCOSE, FASTING 110 MG/DL (60-100); POTASSIUM SERUM 4.4 MMOL/L (3.5-5.1); SALICYLATE LEVEL < 3.0 MG/DL (<30); SODIUM LEVEL 138 MMOL/L (136-145)
[2024-06-27 04:12] LABS: THYROID STIMULATING HORMONE 1.041 uIU/ML (0.55-4.78)
[2024-06-27 04:37] LABS: HCG, SERUM QUALITATIVE NEGATIVE (NEGATIVE)
[2024-06-27] MEDS ORDERED: ZOLP10TA2 PO (08:10)
[2024-06-27] MEDS ORDERED: LATU1TAB PO (08:10)
[2024-06-27] MEDS ORDERED: HOME MED LIST COMPLETE! XX SCH (08:15)
[2024-06-27 08:24] LABS: VALPROIC ACID (DEPAKOTE) < 3.0 UG/ML (50.0-100.0)
[2024-06-27] MEDS ORDERED: zolPIDEM TARTRATE 5 MG TAB PO PRN (09:35)
[2024-06-27] MEDS ORDERED: traZODone 50 MG TAB PO PRN (09:35)
[2024-06-27] MEDS ORDERED: LURASIDONE 20 MG TAB (LATUDA) PO PRN (09:35)
[2024-06-27] MEDS: DIVALPROEX 500 MG TAB PO SCH (10:10)
[2024-06-27] MEDS: VENLAFAXINE **XR** 75MG CAPSULE PO SCH (10:10)
[2024-06-27] MEDS: hydroCHLOROthiazide 12.5 MG CAPSULE PO SCH (10:11)
[2024-06-27] MEDS: atenoloL 25 MG TAB PO SCH (10:11)
[2024-06-27 14:32] LABS: AMPHETAMINES LEVEL URINE NEGATIVE (NEGATIVE); BARBITURATES URINE NEGATIVE (NEGATIVE); BENZODIAZEPINES URINE NEGATIVE (NEGATIVE); COCAINE METABOLITE URINE NEGATIVE (NEGATIVE); METHADONE URINE NEGATIVE (NEGATIVE)
[2024-06-27 14:33] LABS: CANNABINOIDS URINE NEGATIVE (NEGATIVE); OPIATES URINE NEGATIVE (NEGATIVE); PHENCYCLIDINE URINE NEGATIVE (NEGATIVE)
[2024-06-28] MEDS ORDERED: MAALOX 30 ML SUSP *UDC PO PRN (15:45)
[2024-06-28] MEDS ORDERED: MOM 30ML SUSPENSION UDC PO PRN (15:45)
[2024-06-28] MEDS ORDERED: traZODone 50 MG TAB PO PRN (15:45)
[2024-06-28] MEDS ORDERED: zolPIDEM TARTRATE 5 MG TAB PO PRN (20:10)
[2024-06-29] MEDS: DIVALPROEX 500 MG TAB PO SCH (09:00)
[2024-06-29] MEDS: atenoloL 25 MG TAB PO SCH (09:00)
[2024-06-29] MEDS: hydroCHLOROthiazide 12.5 MG CAPSULE PO SCH (09:00)
[2024-06-29] MEDS: VENLAFAXINE **XR** 75MG CAPSULE PO SCH (09:00)
[2024-06-29] MEDS ORDERED: ALBUTEROL 90 MCG/ACT 8GM HFA INHALER INH PRN (13:35)
[2024-06-29] MEDS: LURASIDONE HCL 40MG TAB (LATUDA) PO SCH (17:15)
[2024-06-29] MEDS: LURASIDONE 20 MG TAB (LATUDA) PO SCH (17:15)
[2024-06-30 05:35] VITALS: BP 174/81; TEMP 97.8; O2SAT 97
[2024-06-30] MEDS: HALOPERIDOL LACTATE 5MG/ML VIAL IM STA (05:43)
[2024-06-30] MEDS: diphenhydrAMINE 50MG/ML VIAL IM STA (05:44)
[2024-06-30] MEDS: LORazepam 2 MG/ML 1ML VIAL IM STA (05:44)
[2024-06-30 05:50] VITALS: BP 177/92; TEMP 97.6; O2SAT 97
[2024-06-30 06:05] VITALS: TEMP 97.4; O2SAT 97
[2024-06-30 06:20] VITALS: BP 148/76; O2SAT 97
[2024-06-30 06:35] VITALS: BP 139/65; TEMP 97.3; O2SAT 96
[2024-06-30] MEDS: **PENDING PPD ENTRY XX SCH (09:00)
[2024-06-30] MEDS ORDERED: TUBERCULIN PPD 5 UNITS/0.1 ML ID ONE (10:20)
[2024-07-02 06:07] VITALS: BP 159/96; TEMP 96.9; O2SAT 99
[2024-07-02] MEDS: VENLAFAXINE **XR** 75MG CAPSULE PO SCH (08:20)
[2024-07-02] MEDS ORDERED: PPD DOCUMENTATION ENTRY MISC XX SCH (10:00)
[2024-07-02 16:29] VITALS: BP 155/56; TEMP 97.2; O2SAT 97
[2024-07-02] MEDS: ACETAMINOPHEN TAB 650MG DOSE (2X325MG) PO PRN (17:20)
[2024-07-03] MEDS: diphenhydrAMINE 25MG CAP PO PRN (03:54)
[2024-07-03] MEDS: IBUPROFEN 400MG TAB PO PRN (05:49)
[2024-07-03 06:16] VITALS: BP 163/92; TEMP 97.5; O2SAT 95
[2024-07-03] MEDS: OLANZapine ORAL DISINTEGRATING TAB 5MG PO PRN (06:45)
[2024-07-03] MEDS: LURASIDONE 20 MG TAB (LATUDA) PO SCH (13:00)
[2024-07-03] MEDS: LURASIDONE HCL 40MG TAB (LATUDA) PO SCH (13:00)
[2024-07-03] MEDS ORDERED: DEPA1TAB3 PO (16:03)
[2024-07-04] MEDS: traZODone 50 MG TAB PO PRN (02:51)
[2024-07-04 08:49] VITALS: BP 143/73
== END 2024-07-04 10:21 | disposition home or self-care (01) | DRG 751 ==
LOC: M ED 03:07 → M ED INP 06-28 15:44 → M PSY 06-28 17:20
PROVIDERS: ADMIT Psychiatry & Neurology Child & Adolescent Psychiatry; ATTEND Psychiatry & Neurology Child & Adolescent Psychiatry
DX: F33.1 Major depressive disorder, recurrent, moderate (principal); E66.01 Morbid (severe) obesity due to excess calories; R45.851 Suicidal ideations; Z91.148 Patient's other noncompliance with medication regimen for other reason; F43.10 Post-traumatic stress disorder, unspecified; F60.3 Borderline personality disorder; F60.7 Dependent personality disorder; Z79.899 Other long term (current) drug therapy; J45.909 Unspecified asthma, uncomplicated; F41.9 Anxiety disorder, unspecified; I10 Essential (primary) hypertension

== ENCOUNTER 2024-07-15 04:37 | Emergency (ER) | payer MEDICAID, OTHER ==
[~2024-07-15] VITALS: Ht 162.6 cm; Wt 159.6 kg
[~2024-07-15 04:37] MED LIST changes: +ZOLP10TA2 PO
[2024-07-15 08:35] LABS: HEMATOCRIT 39.4 % (36.0-47.0); HEMOGLOBIN 12.6 g/dl (12.0-15.5); MEAN CORPUSCULAR HEMOGLOBIN 26.8 pg (27.0-33.0); MEAN CORPUSCULAR VOLUME 83.8 fl (80.0-96.0); PLATELET COUNT, AUTOMATED 275 10^3/uL (150-450); WHITE BLOOD COUNT 10.4 10^3/uL (4.0-10.0)
[2024-07-15 09:09] LABS: ETHYL ALCOHOL (ETHANOL) < 0.003 % (0.000-0.010)
[2024-07-15 09:11] LABS: ALKALINE PHOSPHATASE 87 U/L (46-116); ALT/SGPT 19 U/L (7.0-40); AST/SGOT < 8 U/L (<34); BILIRUBIN,DIRECT 0.1 MG/DL (<0.4); BILIRUBIN,TOTAL 0.5 MG/DL (0.3-1.2); BLOOD UREA NITROGEN 11 MG/DL (9-23); CARBON DIOXIDE LEVEL 30 MMOL/L (20-31); CHLORIDE LEVEL 104 MMOL/L (98-107); CREATININE FOR GFR 0.53 MG/DL (0.55-1.30); GLOMERULAR FILTRATION RATE > 60.0 (>60); GLUCOSE, FASTING 123 MG/DL (60-100); POTASSIUM SERUM 4.2 MMOL/L (3.5-5.1); SALICYLATE LEVEL < 3.0 MG/DL (<30); SODIUM LEVEL 138 MMOL/L (136-145); TOTAL PROTEIN 6.6 G/DL (5.7-8.2)
[2024-07-15 10:18] LABS: HCG, SERUM QUALITATIVE NEGATIVE (NEGATIVE)
[2024-07-15 12:17] LABS: VALPROIC ACID (DEPAKOTE) 16.4 UG/ML (50.0-100.0)
[2024-07-15] MEDS ORDERED: HOME MED LIST COMPLETE! XX SCH (16:40)
[2024-07-15] MEDS ORDERED: traZODone 50 MG TAB PO PRN (16:50)
[2024-07-15] MEDS ORDERED: zolPIDEM TARTRATE 5 MG TAB PO PRN (16:50)
[2024-07-15] MEDS ORDERED: ALBUTEROL 90 MCG/ACT 8GM HFA INHALER INH PRN (16:50)
[2024-07-16] MEDS: LURASIDONE 20 MG TAB (LATUDA) PO SCH (00:43)
[2024-07-16 04:39] LABS: APPEARANCE, URINE HAZY (CLEAR); BACTERIA, URINE AUTO 1+ (NEGATIVE); BILIRUBIN, URINE AUTO NEGATIVE (NEGATIVE); BLOOD, URINE BLOOD NEGATIVE (NEGATIVE); COLOR, URINE YELLOW (YELLOW); GLUCOSE, URINE (UA) AUTO NEGATIVE (NEGATIVE); KETONE, URINE AUTO NEGATIVE (NEGATIVE); LEUKOCYTE ESTERASE, URINE AUTO NEGATIVE (NEGATIVE); MUCUS, URINE SMALL (NEGATIVE); NITRITE, URINE AUTO NEGATIVE (NEGATIVE); PROTEIN, URINE AUTO NEGATIVE (NEGATIVE); RBC, URINE AUTO 0 /HPF (0-3); SPECIFIC GRAVITY URINE AUTO 1.026 (1.002-1.035); SQUAMOUS EPITHELIAL CELL UR AU 5 /HPF (0-6); WBC, URINE AUTO 2 /HPF (0-3)
[2024-07-16 05:02] LABS: AMPHETAMINES LEVEL URINE NEGATIVE (NEGATIVE); BARBITURATES URINE NEGATIVE (NEGATIVE); BENZODIAZEPINES URINE NEGATIVE (NEGATIVE); CANNABINOIDS URINE NEGATIVE (NEGATIVE); COCAINE METABOLITE URINE NEGATIVE (NEGATIVE); METHADONE URINE NEGATIVE (NEGATIVE); OPIATES URINE NEGATIVE (NEGATIVE); PHENCYCLIDINE URINE NEGATIVE (NEGATIVE)
[2024-07-16] MEDS: DIVALPROEX 500MG *ER* TAB PO SCH (09:17)
[2024-07-16] MEDS: atenoloL 25 MG TAB PO SCH (09:17)
[2024-07-16] MEDS: VENLAFAXINE **XR** 75MG CAPSULE PO SCH (09:18)
[2024-07-16] MEDS: hydroCHLOROthiazide 12.5 MG CAPSULE PO SCH (09:23)
[2024-07-17 08:35] VITALS: BP 118/59
[2024-07-17 11:40] VITALS: BP 120/70; TEMP 97.1; O2SAT 99
== END 2024-07-17 11:42 | disposition home or self-care (01) ==
LOC: M ED 04:37
DX: R45.851 Suicidal ideations (principal); F60.3 Borderline personality disorder; I10 Essential (primary) hypertension; J45.909 Unspecified asthma, uncomplicated; F32.A Depression, unspecified; F43.10 Post-traumatic stress disorder, unspecified; F31.9 Bipolar disorder, unspecified; Z79.52 Long term (current) use of systemic steroids; Z79.899 Other long term (current) drug therapy

== ENCOUNTER 2024-08-01 03:02 | Emergency (ER) | payer OTHER ==
[~2024-08-01] VITALS: Ht 167.6 cm; Wt 172.7 kg
[2024-08-01 03:35] VITALS: BP 137/81; TEMP 97.8; O2SAT 98
[2024-08-01 03:56] LABS: HEMATOCRIT 41.8 % (36.0-47.0); HEMOGLOBIN 12.9 g/dl (12.0-15.5); MEAN CORPUSCULAR HEMOGLOBIN 26.3 pg (27.0-33.0); MEAN CORPUSCULAR HGB CONC 30.9 g/dl (32.0-36.5); MEAN CORPUSCULAR VOLUME 85.3 fl (80.0-96.0); PLATELET COUNT, AUTOMATED 274 10^3/uL (150-450); WHITE BLOOD COUNT 9.7 10^3/uL (4.0-10.0)
[2024-08-01 04:33] LABS: HCG, SERUM QUALITATIVE NEGATIVE (NEGATIVE)
[2024-08-01 04:45] LABS: ALBUMIN 3.1 G/DL (3.2-5.2); ALKALINE PHOSPHATASE 86 U/L (46-116); ALT/SGPT 24 U/L (7.0-40); AST/SGOT 12 U/L (<34); BILIRUBIN,DIRECT < 0.1 MG/DL (<0.4); BILIRUBIN,TOTAL 0.3 MG/DL (0.3-1.2); BLOOD UREA NITROGEN 14 MG/DL (9-23); CALCIUM LEVEL 8.9 MG/DL (8.5-10.1); CARBON DIOXIDE LEVEL 25 MMOL/L (20-31); CHLORIDE LEVEL 107 MMOL/L (98-107); CREATININE FOR GFR 0.65 MG/DL (0.55-1.30); ETHYL ALCOHOL (ETHANOL) 0.004 % (0.000-0.010); GLOMERULAR FILTRATION RATE > 60.0 (>60); GLUCOSE, FASTING 105 MG/DL (60-100); POTASSIUM SERUM 4.2 MMOL/L (3.5-5.1); SALICYLATE LEVEL < 3.0 MG/DL (<30); SODIUM LEVEL 140 MMOL/L (136-145); THYROID STIMULATING HORMONE 1.413 uIU/ML (0.55-4.78); TOTAL PROTEIN 6.7 G/DL (5.7-8.2)
[2024-08-01] MEDS ORDERED: HOME MED LIST COMPLETE! XX SCH (08:35)
[2024-08-01 12:11] LABS: FERRITIN 47.8 NG/ML (7.3-270.7)
== END 2024-08-01 09:47 | disposition home or self-care (01) ==
LOC: M ED 03:02
DX: F32.A Depression, unspecified (principal); F43.10 Post-traumatic stress disorder, unspecified; F60.7 Dependent personality disorder; F60.3 Borderline personality disorder; I10 Essential (primary) hypertension; J45.909 Unspecified asthma, uncomplicated; F31.9 Bipolar disorder, unspecified; Z79.52 Long term (current) use of systemic steroids; Z79.899 Other long term (current) drug therapy

== ENCOUNTER 2024-08-07 07:29 | Inpatient (IN) | payer MEDICAID, OTHER ==
[~2024-08-07] VITALS: Ht 160 cm; Wt 170.2 kg
[2024-08-07 08:53] LABS: BASO % 0.3 % (0.0-1.0); EOS # 0.1 10^3/uL (0.0-0.5); EOS % 0.9 % (0.0-3.0); HEMATOCRIT 40.1 % (36.0-47.0); HEMOGLOBIN 12.7 g/dl (12.0-15.5); LYMPH # 2.5 10^3/uL (1.5-5.0); LYMPH % 22.3 % (24.0-44.0); MEAN CORPUSCULAR HEMOGLOBIN 26.6 pg (27.0-33.0); MEAN CORPUSCULAR HGB CONC 31.7 g/dl (32.0-36.5); MEAN CORPUSCULAR VOLUME 84.1 fl (80.0-96.0); MONO # 0.8 10^3/uL (0.0-0.8); MONO % 7.4 % (2.0-8.0); NEUTROPHILS # 7.6 10^3/uL (1.5-8.5); NEUTROPHILS % 68.9 % (36.0-66.0); PLATELET COUNT, AUTOMATED 299 10^3/uL (150-450); RED BLOOD COUNT 4.77 10^6/uL (4.00-5.40)
[2024-08-07 09:12] LABS: ETHYL ALCOHOL (ETHANOL) 0.008 % (0.000-0.010)
[2024-08-07 09:14] LABS: CPK CREATINE PHOSPHOKINASE 78 U/L (34-145); SALICYLATE LEVEL < 3.0 MG/DL (<30)
[2024-08-07 09:15] LABS: ALBUMIN 3.1 G/DL (3.2-5.2); ALKALINE PHOSPHATASE 89 U/L (46-116); ALT/SGPT 27 U/L (7.0-40); AST/SGOT 14 U/L (<34); BILIRUBIN,DIRECT 0.1 MG/DL (<0.4); BILIRUBIN,TOTAL 0.5 MG/DL (0.3-1.2); BLOOD UREA NITROGEN 13 MG/DL (9-23); CALCIUM LEVEL 8.8 MG/DL (8.5-10.1); CARBON DIOXIDE LEVEL 27 MMOL/L (20-31); CHLORIDE LEVEL 108 MMOL/L (98-107); CREATININE FOR GFR 0.61 MG/DL (0.55-1.30); GLOMERULAR FILTRATION RATE > 60.0 (>60); GLUCOSE, FASTING 121 MG/DL (60-100); HCG, SERUM QUALITATIVE NEGATIVE (NEGATIVE); POTASSIUM SERUM 3.7 MMOL/L (3.5-5.1); SODIUM LEVEL 140 MMOL/L (136-145); TOTAL PROTEIN 6.8 G/DL (5.7-8.2)
[2024-08-07 09:16] LABS: THYROID STIMULATING HORMONE 2.008 uIU/ML (0.55-4.78)
[2024-08-07 09:29] LABS: VALPROIC ACID (DEPAKOTE) 14.7 UG/ML (50.0-100.0)
[2024-08-07] MEDS: NS 1,000 ML IV ONE ×2 (09:39→11:47)
[2024-08-07] MEDS ORDERED: HOME MED LIST COMPLETE! XX SCH (16:15)
[2024-08-07] MEDS ORDERED: LURASIDONE 20 MG TAB (LATUDA) PO SCH (21:00)
[2024-08-08] MEDS: hydroCHLOROthiazide 12.5 MG CAPSULE PO SCH (09:00)
[2024-08-08] MEDS: UNRESOLVED CLARIFICATION ENTRY XX SCH (09:00)
[2024-08-08] MEDS: atenoloL 25 MG TAB PO SCH (09:00)
[2024-08-08 10:13] LABS: BARBITURATES URINE NEGATIVE (NEGATIVE); COCAINE METABOLITE URINE NEGATIVE (NEGATIVE)
[2024-08-08 10:14] LABS: AMPHETAMINES LEVEL URINE NEGATIVE (NEGATIVE); BENZODIAZEPINES URINE NEGATIVE (NEGATIVE); CANNABINOIDS URINE NEGATIVE (NEGATIVE); METHADONE URINE NEGATIVE (NEGATIVE); OPIATES URINE NEGATIVE (NEGATIVE); PHENCYCLIDINE URINE NEGATIVE (NEGATIVE)
[2024-08-08] MEDS ORDERED: IBUPROFEN 400MG TAB PO PRN (10:30)
[2024-08-08] MEDS ORDERED: diphenhydrAMINE 25MG CAP PO PRN (10:30)
[2024-08-08] MEDS ORDERED: MAALOX 30 ML SUSP *UDC PO PRN (10:30)
[2024-08-08] MEDS ORDERED: MOM 30ML SUSPENSION UDC PO PRN (10:30)
[2024-08-08] MEDS ORDERED: ACETAMINOPHEN TAB 650MG DOSE (2X325MG) PO PRN (10:30)
[2024-08-08] MEDS ORDERED: traZODone 50 MG TAB PO PRN (10:30)
[2024-08-08 13:02] VITALS: BP 147/75; TEMP 97.4; O2SAT 100
== END 2024-08-09 11:04 | disposition home or self-care (01) | DRG 754 ==
LOC: M ED 07:29 → EDBD 07:29 → M ED INP 08-08 10:29 → M PSY 08-08 13:18
PROVIDERS: ADMIT Psychiatry & Neurology Psychiatry; ATTEND Psychiatry & Neurology Psychiatry
DX: F32.9 Major depressive disorder, single episode, unspecified (principal); I10 Essential (primary) hypertension; Z79.899 Other long term (current) drug therapy; J45.909 Unspecified asthma, uncomplicated

== ENCOUNTER 2024-08-27 20:20 | Emergency (ER) | payer OTHER ==
[~2024-08-27] VITALS: Ht 160 cm; Wt 170.7 kg
[~2024-08-27 20:20] MED LIST changes: -ARIP10TA32 PO; +ARIP10TA63 PO
[2024-08-27] MEDS ORDERED: HOME MED LIST COMPLETE! XX SCH (22:40)
[2024-08-27 22:52] LABS: HEMOGLOBIN 12.5 g/dl (12.0-15.5); MEAN CORPUSCULAR HGB CONC 32.1 g/dl (32.0-36.5); MEAN CORPUSCULAR VOLUME 84.2 fl (80.0-96.0); PLATELET COUNT, AUTOMATED 311 10^3/uL (150-450); RED BLOOD COUNT 4.63 10^6/uL (4.00-5.40); WHITE BLOOD COUNT 9.6 10^3/uL (4.0-10.0)
[2024-08-27 23:14] LABS: ETHYL ALCOHOL (ETHANOL) < 0.003 % (0.000-0.010)
[2024-08-27 23:16] LABS: ALBUMIN 2.9 G/DL (3.2-5.2); ALKALINE PHOSPHATASE 91 U/L (46-116); ALT/SGPT 19 U/L (7.0-40); AST/SGOT 11 U/L (<34); BILIRUBIN,DIRECT < 0.1 MG/DL (<0.4); BILIRUBIN,TOTAL 0.3 MG/DL (0.3-1.2); BLOOD UREA NITROGEN 10 MG/DL (9-23); CALCIUM LEVEL 9.5 MG/DL (8.5-10.1); CARBON DIOXIDE LEVEL 28 MMOL/L (20-31); CHLORIDE LEVEL 104 MMOL/L (98-107); CREATININE FOR GFR 0.46 MG/DL (0.55-1.30); GLOMERULAR FILTRATION RATE > 60.0 (>60); GLUCOSE, FASTING 87 MG/DL (60-100); POTASSIUM SERUM 4.3 MMOL/L (3.5-5.1); SALICYLATE LEVEL < 3.0 MG/DL (<30); SODIUM LEVEL 139 MMOL/L (136-145); TOTAL PROTEIN 6.5 G/DL (5.7-8.2)
[2024-08-27 23:18] LABS: THYROID STIMULATING HORMONE 0.896 uIU/ML (0.55-4.78)
[2024-08-27 23:22] LABS: HCG, SERUM QUALITATIVE NEGATIVE (NEGATIVE)
[2024-08-28] MEDS ORDERED: atenoloL 25 MG TAB PO SCH (09:00)
[2024-08-28] MEDS: VENLAFAXINE **XR** 75MG CAPSULE PO SCH (10:37)
[2024-08-28] MEDS: DIVALPROEX 500 MG TAB PO SCH (10:37)
[2024-08-28 15:54] VITALS: BP 133/81; TEMP 97.4; O2SAT 96
== END 2024-08-28 15:58 | disposition home or self-care (01) ==
LOC: M ED 20:20
DX: R45.851 Suicidal ideations (principal); F32.A Depression, unspecified; F31.9 Bipolar disorder, unspecified; I10 Essential (primary) hypertension; J45.909 Unspecified asthma, uncomplicated; Z79.52 Long term (current) use of systemic steroids; Z79.899 Other long term (current) drug therapy

== ENCOUNTER 2024-09-13 15:28 | Emergency (ER) | payer OTHER ==
[~2024-09-13] VITALS: Ht 160 cm; Wt 179.0 kg
[2024-09-13 15:41] VITALS: BP 163/101; TEMP 98.1; O2SAT 97
[2024-09-13 16:57] LABS: BASO % 0.2 % (0.0-1.0); EOS # 0.1 10^3/uL (0.0-0.5); EOS % 1.1 % (0.0-3.0); HEMATOCRIT 38.9 % (36.0-47.0); HEMOGLOBIN 12.7 g/dl (12.0-15.5); LYMPH # 2.6 10^3/uL (1.5-5.0); LYMPH % 32.3 % (24.0-44.0); MEAN CORPUSCULAR HEMOGLOBIN 27.1 pg (27.0-33.0); MEAN CORPUSCULAR HGB CONC 32.6 g/dl (32.0-36.5); MEAN CORPUSCULAR VOLUME 82.9 fl (80.0-96.0); MONO # 0.6 10^3/uL (0.0-0.8); MONO % 7.5 % (2.0-8.0); NEUTROPHILS # 4.7 10^3/uL (1.5-8.5); NEUTROPHILS % 58.5 % (36.0-66.0); PLATELET COUNT, AUTOMATED 269 10^3/uL (150-450); RED BLOOD COUNT 4.69 10^6/uL (4.00-5.40); WHITE BLOOD COUNT 8.1 10^3/uL (4.0-10.0)
[2024-09-13 17:17] LABS: LIPASE 20 U/L (12-53)
[2024-09-13 17:46] LABS: HCG, SERUM QUALITATIVE NEGATIVE (NEGATIVE)
[2024-09-13 18:09] LABS: ALBUMIN 2.9 G/DL (3.2-5.2); ALKALINE PHOSPHATASE 82 U/L (35-104); ALT/SGPT 24 U/L (7.0-40); AST/SGOT 11 U/L (<34); BILIRUBIN,DIRECT < 0.1 MG/DL (<0.4); BILIRUBIN,TOTAL 0.4 MG/DL (0.3-1.2); BLOOD UREA NITROGEN 13 MG/DL (9-23); CALCIUM LEVEL 9.2 MG/DL (8.5-10.1); CARBON DIOXIDE LEVEL 30 MMOL/L (20-31); CHLORIDE LEVEL 106 MMOL/L (98-107); CREATININE FOR GFR 0.48 MG/DL (0.55-1.30); GLOMERULAR FILTRATION RATE > 60.0 (>60); GLUCOSE, FASTING 104 MG/DL (60-100); POTASSIUM SERUM 3.9 MMOL/L (3.5-5.1); SODIUM LEVEL 140 MMOL/L (136-145); TOTAL PROTEIN 6.6 G/DL (5.7-8.2)
== END 2024-09-13 18:18 | disposition left against medical advice (07) ==
LOC: M ED 15:28
DX: R10.9 Unspecified abdominal pain (principal); I10 Essential (primary) hypertension; F17.200 Nicotine dependence, unspecified, uncomplicated; Z79.52 Long term (current) use of systemic steroids; Z79.899 Other long term (current) drug therapy; Z53.9 Procedure and treatment not carried out, unspecified reason

== ENCOUNTER 2024-10-03 02:18 | Emergency (ER) | payer OTHER ==
[~2024-10-03] VITALS: Ht 160 cm; Wt 179.0 kg
[~2024-10-03 02:18] MED LIST changes: +NYST1POW3 TOP; -NYST1POW9 TOP
[2024-10-03 02:42] VITALS: BP 130/62; TEMP 97.9; O2SAT 98
[2024-10-03 08:54] LABS: HEMATOCRIT 37.6 % (36.0-47.0); MEAN CORPUSCULAR HEMOGLOBIN 27.1 pg (27.0-33.0); MEAN CORPUSCULAR HGB CONC 31.9 g/dl (32.0-36.5); MEAN CORPUSCULAR VOLUME 85.1 fl (80.0-96.0); PLATELET COUNT, AUTOMATED 284 10^3/uL (150-450); RED BLOOD COUNT 4.42 10^6/uL (4.00-5.40); WHITE BLOOD COUNT 11.3 10^3/uL (4.0-10.0)
[2024-10-03 09:23] LABS: SALICYLATE LEVEL < 3.0 MG/DL (<30)
[2024-10-03 09:24] LABS: ALBUMIN 2.8 G/DL (3.2-5.2); ALKALINE PHOSPHATASE 80 U/L (35-104); ALT/SGPT 25 U/L (7.0-40); AST/SGOT 10 U/L (<34); BILIRUBIN,DIRECT < 0.1 MG/DL (<0.4); BILIRUBIN,TOTAL 0.4 MG/DL (0.3-1.2); BLOOD UREA NITROGEN 11 MG/DL (9-23); CALCIUM LEVEL 8.9 MG/DL (8.5-10.1); CARBON DIOXIDE LEVEL 28 MMOL/L (20-31); CHLORIDE LEVEL 106 MMOL/L (98-107); GLOMERULAR FILTRATION RATE > 60.0 (>60); GLUCOSE, FASTING 111 MG/DL (60-100); POTASSIUM SERUM 4.1 MMOL/L (3.5-5.1); SODIUM LEVEL 139 MMOL/L (136-145); TOTAL PROTEIN 6.5 G/DL (5.7-8.2)
[2024-10-03 09:26] LABS: ETHYL ALCOHOL (ETHANOL) 0.004 % (0.000-0.010); FREE T4 1.15 NG/DL (0.89-1.76); THYROID STIMULATING HORMONE 1.953 uIU/ML (0.55-4.78)
[2024-10-03 09:27] LABS: HCG, SERUM QUALITATIVE NEGATIVE (NEGATIVE)
== END 2024-10-03 11:23 | disposition home or self-care (01) ==
LOC: M ED 02:18
DX: F43.21 Adjustment disorder with depressed mood (principal); I10 Essential (primary) hypertension; F41.9 Anxiety disorder, unspecified; F32.A Depression, unspecified; F31.9 Bipolar disorder, unspecified; F17.200 Nicotine dependence, unspecified, uncomplicated; Z79.52 Long term (current) use of systemic steroids; Z79.899 Other long term (current) drug therapy

== ENCOUNTER 2024-10-05 07:34 | Inpatient (IN) | payer MEDICAID, OTHER ==
[~2024-10-05] VITALS: Ht 160 cm; Wt 179.0 kg
[2024-10-05 09:15] LABS: HEMATOCRIT 38.5 % (36.0-47.0); HEMOGLOBIN 11.9 g/dl (12.0-15.5); MEAN CORPUSCULAR HEMOGLOBIN 26.4 pg (27.0-33.0); MEAN CORPUSCULAR HGB CONC 30.9 g/dl (32.0-36.5); MEAN CORPUSCULAR VOLUME 85.6 fl (80.0-96.0); PLATELET COUNT, AUTOMATED 275 10^3/uL (150-450); WHITE BLOOD COUNT 10.2 10^3/uL (4.0-10.0)
[2024-10-05 09:33] LABS: ETHYL ALCOHOL (ETHANOL) < 0.003 % (0.000-0.010)
[2024-10-05 09:35] LABS: ALKALINE PHOSPHATASE 85 U/L (35-104); ALT/SGPT 25 U/L (7.0-40); AST/SGOT < 8 U/L (<34); BILIRUBIN,DIRECT 0.1 MG/DL (<0.4); BILIRUBIN,TOTAL 0.4 MG/DL (0.3-1.2); BLOOD UREA NITROGEN 12 MG/DL (9-23); CALCIUM LEVEL 9.5 MG/DL (8.5-10.1); CARBON DIOXIDE LEVEL 27 MMOL/L (20-31); CHLORIDE LEVEL 106 MMOL/L (98-107); CREATININE FOR GFR 0.52 MG/DL (0.55-1.30); GLOMERULAR FILTRATION RATE > 60.0 (>60); GLUCOSE, FASTING 121 MG/DL (60-100); HCG, SERUM QUALITATIVE NEGATIVE (NEGATIVE); SALICYLATE LEVEL < 3.0 MG/DL (<30); SODIUM LEVEL 141 MMOL/L (136-145); TOTAL PROTEIN 6.5 G/DL (5.7-8.2)
[2024-10-05 09:36] LABS: THYROID STIMULATING HORMONE 3.333 uIU/ML (0.55-4.78)
[2024-10-05 13:00] LABS: AMPHETAMINES LEVEL URINE NEGATIVE (NEGATIVE); BARBITURATES URINE NEGATIVE (NEGATIVE); BENZODIAZEPINES URINE NEGATIVE (NEGATIVE); CANNABINOIDS URINE NEGATIVE (NEGATIVE); COCAINE METABOLITE URINE NEGATIVE (NEGATIVE); METHADONE URINE NEGATIVE (NEGATIVE); OPIATES URINE NEGATIVE (NEGATIVE); PHENCYCLIDINE URINE NEGATIVE (NEGATIVE)
[2024-10-05] MEDS ORDERED: HOME MED LIST COMPLETE! XX SCH (13:55)
[2024-10-05] MEDS ORDERED: MAALOX 30 ML SUSP *UDC PO PRN (14:40)
[2024-10-05] MEDS ORDERED: traZODone 50 MG TAB PO PRN (14:40)
[2024-10-05] MEDS ORDERED: MOM 30ML SUSPENSION UDC PO PRN (14:40)
[2024-10-05 17:00] VITALS: BP 130/80; TEMP 97; O2SAT 98
[2024-10-06] MEDS ORDERED: VENLAFAXINE 37.5 MG TAB PO SCH (09:00)
[2024-10-06] MEDS ORDERED: ALBUTEROL 90 MCG/ACT 8GM HFA INHALER INH PRN (11:15)
[2024-10-06] MEDS ORDERED: VENLAFAXINE **XR** 75MG CAPSULE PO ONE (11:20)
[2024-10-06 12:48] VITALS: BP 136/86
[2024-10-06] MEDS: DIVALPROEX 500 MG TAB PO SCH (12:50)
[2024-10-06] MEDS: hydroCHLOROthiazide 12.5 MG CAPSULE PO SCH (12:50)
[2024-10-06] MEDS: atenoloL 25 MG TAB PO SCH (12:50)
[2024-10-06] MEDS: VENLAFAXINE **XR** 75MG CAPSULE PO SCH (12:51)
[2024-10-06] MEDS: LURASIDONE 20 MG TAB (LATUDA) PO SCH (18:09)
[2024-10-07] MEDS ORDERED: DIVALPROEX 500 MG TAB PO SCH (09:00)
[2024-10-07] MEDS: ACETAMINOPHEN 325 MG TAB PO PRN (17:43)
[2024-10-08] MEDS: NICOTINE 21MG/24HR 1 EA TRANSDERMAL TD SCH (12:11)
[2024-10-08 16:19] VITALS: BP 134/86; TEMP 98.3; O2SAT 96
[2024-10-08] MEDS: IBUPROFEN 400MG TAB PO PRN (17:22)
[2024-10-08] MEDS: zolPIDEM TARTRATE 5 MG TAB PO PRN (22:41)
[2024-10-08] MEDS: diphenhydrAMINE 25MG CAP PO PRN (22:42)
[2024-10-09 14:55] VITALS: BP 165/81; TEMP 97.7; O2SAT 96
[2024-10-09] MEDS: traZODone 50 MG TAB PO PRN (20:28)
[2024-10-10 08:21] VITALS: BP 136/62
[2024-10-10 08:25] VITALS: BP 136/62
[2024-10-10] MEDS: OLANZapine ORAL DISINTEGRATING TAB 5MG PO PRN (10:40)
[2024-10-10] MEDS ORDERED: DEPA1TAB3 PO (12:23)
== END 2024-10-10 13:00 | disposition home or self-care (01) | DRG 754 ==
LOC: M ED 07:34 → M ED INP 14:40 → M PSY 17:03
PROVIDERS: ADMIT Psychiatry & Neurology Psychiatry; ATTEND Psychiatry & Neurology Psychiatry
DX: F43.21 Adjustment disorder with depressed mood (principal); F43.10 Post-traumatic stress disorder, unspecified; F60.3 Borderline personality disorder; F60.7 Dependent personality disorder; R45.851 Suicidal ideations; I10 Essential (primary) hypertension; J45.909 Unspecified asthma, uncomplicated; E66.01 Morbid (severe) obesity due to excess calories; Z62.810 Personal history of physical and sexual abuse in childhood; Z62.811 Personal history of psychological abuse in childhood; Z91.410 Personal history of adult physical and sexual abuse; Z91.411 Personal history of adult psychological abuse; Z56.0 Unemployment, unspecified; Z79.899 Other long term (current) drug therapy; Z91.51 Personal history of suicidal behavior; Z91.52 Personal history of nonsuicidal self-harm

== ENCOUNTER 2024-10-13 03:10 | Inpatient (IN) | payer MEDICAID ==
[~2024-10-13] VITALS: Ht 160 cm; Wt 175.8 kg
[2024-10-13 04:29] LABS: HEMATOCRIT 36.1 % (36.0-47.0); HEMOGLOBIN 11.5 g/dl (12.0-15.5); MEAN CORPUSCULAR HEMOGLOBIN 27.3 pg (27.0-33.0); MEAN CORPUSCULAR HGB CONC 31.9 g/dl (32.0-36.5); MEAN CORPUSCULAR VOLUME 85.7 fl (80.0-96.0); PLATELET COUNT, AUTOMATED 291 10^3/uL (150-450); RED BLOOD COUNT 4.21 10^6/uL (4.00-5.40)
[2024-10-13 04:49] LABS: ETHYL ALCOHOL (ETHANOL) < 0.003 % (0.000-0.010)
[2024-10-13 04:51] LABS: ALBUMIN 2.9 G/DL (3.2-5.2); ALKALINE PHOSPHATASE 81 U/L (35-104); ALT/SGPT 22 U/L (7.0-40); AST/SGOT 10 U/L (<34); BILIRUBIN,DIRECT < 0.1 MG/DL (<0.4); BILIRUBIN,TOTAL 0.3 MG/DL (0.3-1.2); BLOOD UREA NITROGEN 17 MG/DL (9-23); CALCIUM LEVEL 8.6 MG/DL (8.5-10.1); CARBON DIOXIDE LEVEL 26 MMOL/L (20-31); CHLORIDE LEVEL 109 MMOL/L (98-107); CREATININE FOR GFR 0.68 MG/DL (0.55-1.30); GLOMERULAR FILTRATION RATE > 60.0 (>60); GLUCOSE, FASTING 132 MG/DL (60-100); POTASSIUM SERUM 4.2 MMOL/L (3.5-5.1); SALICYLATE LEVEL < 3.0 MG/DL (<30); SODIUM LEVEL 140 MMOL/L (136-145); TOTAL PROTEIN 6.1 G/DL (5.7-8.2)
[2024-10-13 04:53] LABS: THYROID STIMULATING HORMONE 1.841 uIU/ML (0.55-4.78)
[2024-10-13 05:58] LABS: AMPHETAMINES LEVEL URINE NEGATIVE (NEGATIVE); BARBITURATES URINE NEGATIVE (NEGATIVE); CANNABINOIDS URINE NEGATIVE (NEGATIVE); COCAINE METABOLITE URINE NEGATIVE (NEGATIVE); METHADONE URINE NEGATIVE (NEGATIVE); OPIATES URINE NEGATIVE (NEGATIVE); PHENCYCLIDINE URINE NEGATIVE (NEGATIVE)
[2024-10-13 05:59] LABS: BENZODIAZEPINES URINE NEGATIVE (NEGATIVE)
[2024-10-13 08:00] LABS: HCG, SERUM QUALITATIVE NEGATIVE (NEGATIVE)
[2024-10-13] MEDS ORDERED: MOM 30ML SUSPENSION UDC PO PRN (12:00)
[2024-10-13] MEDS ORDERED: MAALOX 30 ML SUSP *UDC PO PRN (12:00)
[2024-10-13] MEDS ORDERED: traZODone 50 MG TAB PO PRN ×3 (12:00→19:50)
[2024-10-13] MEDS ORDERED: IBUPROFEN 400MG TAB PO PRN (12:00)
[2024-10-13 13:39] VITALS: BP 149/94; O2SAT 99
[2024-10-13] MEDS: ACETAMINOPHEN 325 MG TAB PO PRN (13:46)
[2024-10-13] MEDS: diphenhydrAMINE 25MG CAP PO PRN (13:46)
[2024-10-13] MEDS ORDERED: HOME MED LIST COMPLETE! XX SCH (14:45)
[2024-10-13] MEDS ORDERED: NICOTINE 21MG/24HR 1 EA TRANSDERMAL TD PRN (15:30)
[2024-10-13 18:54] VITALS: TEMP 97
[2024-10-13] MEDS ORDERED: zolPIDEM TARTRATE 5 MG TAB PO PRN (19:45)
[2024-10-13] MEDS ORDERED: ALBUTEROL 90 MCG/ACT 8GM HFA INHALER INH PRN (19:45)
[2024-10-13] MEDS ORDERED: LORazepam 1 MG TAB PO PRN (19:50)
[2024-10-14] MEDS: DIVALPROEX 500MG *ER* TAB PO SCH (09:00)
[2024-10-14] MEDS: atenoloL 25 MG TAB PO SCH (09:00)
[2024-10-14] MEDS ORDERED: VENLAFAXINE **XR** 75MG CAPSULE PO SCH (09:00)
[2024-10-14] MEDS: hydroCHLOROthiazide 12.5 MG CAPSULE PO SCH (09:00)
[2024-10-14] MEDS: VENLAFAXINE **XR** 75MG CAPSULE PO SCH (09:00)
[2024-10-14 16:55] VITALS: BP 139/94; TEMP 97.7; O2SAT 97
[2024-10-14] MEDS: LURASIDONE 20 MG TAB (LATUDA) PO SCH (17:54)
[2024-10-14] MEDS ORDERED: LURASIDONE 20 MG TAB (LATUDA) PO SCH (18:00)
[2024-10-14] MEDS ORDERED: LURASIDONE HCL 40MG TAB (LATUDA) PO SCH (18:00)
[2024-10-16 08:38] VITALS: BP 137/99
[2024-10-16 08:39] VITALS: BP 137/99
== END 2024-10-16 10:39 | disposition home or self-care (01) | DRG 753 ==
LOC: M ED 03:10 → M ED INP 11:57 → M PSY 12:50
PROVIDERS: ADMIT Psychiatry & Neurology Psychiatry; ATTEND Psychiatry & Neurology Psychiatry
DX: F31.9 Bipolar disorder, unspecified (principal); R45.851 Suicidal ideations; F60.3 Borderline personality disorder; Z79.899 Other long term (current) drug therapy

== ENCOUNTER 2024-11-17 00:02 | Inpatient (IN) | payer MEDICAID, OTHER ==
[~2024-11-17] VITALS: Ht 160 cm; Wt 163.3 kg
[2024-11-17 01:11] LABS: AMPHETAMINES LEVEL URINE NEGATIVE (NEGATIVE); BARBITURATES URINE NEGATIVE (NEGATIVE); BENZODIAZEPINES URINE NEGATIVE (NEGATIVE); CANNABINOIDS URINE NEGATIVE (NEGATIVE); COCAINE METABOLITE URINE NEGATIVE (NEGATIVE); METHADONE URINE NEGATIVE (NEGATIVE); OPIATES URINE NEGATIVE (NEGATIVE); PHENCYCLIDINE URINE NEGATIVE (NEGATIVE)
[2024-11-17 01:13] LABS: ETHYL ALCOHOL (ETHANOL) < 0.003 % (0.000-0.010)
[2024-11-17 01:15] LABS: ALKALINE PHOSPHATASE 80 U/L (35-104); ALT/SGPT 24 U/L (7.0-40); AST/SGOT 10 U/L (<34); BILIRUBIN,DIRECT < 0.1 MG/DL (<0.4); BILIRUBIN,TOTAL 0.3 MG/DL (0.3-1.2); BLOOD UREA NITROGEN 16 MG/DL (9-23); CALCIUM LEVEL 9.3 MG/DL (8.5-10.1); CARBON DIOXIDE LEVEL 29 MMOL/L (20-31); CHLORIDE LEVEL 103 MMOL/L (98-107); GLOMERULAR FILTRATION RATE > 60.0 (>60); GLUCOSE, FASTING 129 MG/DL (60-100); POTASSIUM SERUM 3.7 MMOL/L (3.5-5.1); SALICYLATE LEVEL < 3.0 MG/DL (<30); SODIUM LEVEL 141 MMOL/L (136-145); TOTAL PROTEIN 6.8 G/DL (5.7-8.2)
[2024-11-17 01:17] LABS: THYROID STIMULATING HORMONE 1.271 uIU/ML (0.55-4.78)
[2024-11-17 01:20] LABS: HEMATOCRIT 36.9 % (36.0-47.0); HEMOGLOBIN 11.9 g/dl (12.0-15.5); MEAN CORPUSCULAR HGB CONC 32.2 g/dl (32.0-36.5); MEAN CORPUSCULAR VOLUME 83.7 fl (80.0-96.0); PLATELET COUNT, AUTOMATED 286 10^3/uL (150-450); RED BLOOD COUNT 4.41 10^6/uL (4.00-5.40); WHITE BLOOD COUNT 11.6 10^3/uL (4.0-10.0)
[2024-11-17] MEDS ORDERED: HOME MED LIST COMPLETE! XX SCH (06:15)
[2024-11-17 07:52] LABS: VALPROIC ACID (DEPAKOTE) 7.1 UG/ML (50.0-100.0)
[2024-11-17] MEDS ORDERED: zolPIDEM TARTRATE 5 MG TAB PO PRN (08:10)
[2024-11-17] MEDS: hydroCHLOROthiazide 12.5 MG CAPSULE PO SCH (09:00)
[2024-11-17] MEDS: LURASIDONE 20 MG TAB (LATUDA) PO SCH (09:00)
[2024-11-17] MEDS: atenoloL 25 MG TAB PO SCH (09:00)
[2024-11-17] MEDS: VENLAFAXINE **XR** 75MG CAPSULE PO SCH (09:00)
[2024-11-17] MEDS: DIVALPROEX 500 MG TAB PO SCH (09:00)
[2024-11-17] MEDS ORDERED: diphenhydrAMINE 25MG CAP PO PRN (13:25)
[2024-11-17] MEDS ORDERED: MOM 30ML SUSPENSION UDC PO PRN (13:25)
[2024-11-17] MEDS ORDERED: IBUPROFEN 400MG TAB PO PRN (13:25)
[2024-11-17] MEDS ORDERED: MAALOX 30 ML SUSP *UDC PO PRN (13:25)
[2024-11-17 16:05] VITALS: BP 130/82; TEMP 97
[2024-11-17] MEDS ORDERED: ALBUTEROL 90 MCG/ACT 8GM HFA INHALER INH PRN (19:20)
[2024-11-17] MEDS ORDERED: traZODone 50 MG TAB PO SCH (21:00)
[2024-11-18] MEDS: LURASIDONE 20 MG TAB (LATUDA) PO SCH (08:00)
[2024-11-18] MEDS: atenoloL 25 MG TAB PO SCH (09:00)
[2024-11-18] MEDS: DIVALPROEX 500 MG TAB PO SCH (09:00)
[2024-11-18] MEDS: VENLAFAXINE **XR** 75MG CAPSULE PO SCH (09:00)
[2024-11-18] MEDS: hydroCHLOROthiazide 12.5 MG CAPSULE PO SCH (09:00)
[2024-11-18] MEDS: ACETAMINOPHEN 325 MG TAB PO PRN (14:53)
[2024-11-18] MEDS: traZODone 50 MG TAB PO PRN (22:46)
[2024-11-19] MEDS ORDERED: zolPIDEM TARTRATE 5 MG TAB PO PRN (12:35)
[2024-11-19] MEDS: NICOTINE 14 MG/24 HR TRANSDERMAL TD SCH (14:20)
[2024-11-20 09:04] VITALS: BP 147/88
[2024-11-20 15:30] VITALS: BP 145/81; TEMP 98; O2SAT 97
[2024-11-20] MEDS: LURASIDONE HCL 40MG TAB (LATUDA) PO SCH (17:49)
[2024-11-21 08:46] VITALS: BP 151/82
[2024-11-21 08:49] VITALS: BP 151/82
[2024-11-21] MEDS ORDERED: LATU20TA PO (09:01)
[2024-11-22] MEDS ORDERED: med rec comment (22:08)
== END 2024-11-21 12:34 | disposition home or self-care (01) | DRG 752 ==
LOC: M ED 00:02 → M ED INP 13:21 → M PSY 16:13
PROVIDERS: ADMIT Psychiatry & Neurology Psychiatry; ATTEND Psychiatry & Neurology Psychiatry
DX: F60.3 Borderline personality disorder (principal); Z91.199 Patient's noncompliance with other medical treatment and regimen due to unspecified reason; R45.851 Suicidal ideations; F31.9 Bipolar disorder, unspecified; F43.10 Post-traumatic stress disorder, unspecified; F41.9 Anxiety disorder, unspecified; Z79.899 Other long term (current) drug therapy

== ENCOUNTER 2024-11-22 17:17 | Emergency (ER) | payer MEDICAID, OTHER ==
[~2024-11-22] VITALS: Ht 160 cm; Wt 163.6 kg
[2024-11-22 17:58] LABS: HEMATOCRIT 39.3 % (36.0-47.0); HEMOGLOBIN 12.6 g/dl (12.0-15.5); MEAN CORPUSCULAR HEMOGLOBIN 26.9 pg (27.0-33.0); MEAN CORPUSCULAR HGB CONC 32.1 g/dl (32.0-36.5); PLATELET COUNT, AUTOMATED 323 10^3/uL (150-450); RED BLOOD COUNT 4.68 10^6/uL (4.00-5.40); WHITE BLOOD COUNT 10.7 10^3/uL (4.0-10.0)
[2024-11-22 18:20] LABS: ETHYL ALCOHOL (ETHANOL) < 0.003 % (0.000-0.010)
[2024-11-22 18:22] LABS: ALBUMIN 3.2 G/DL (3.2-5.2); ALKALINE PHOSPHATASE 85 U/L (35-104); ALT/SGPT 33 U/L (7.0-40); AST/SGOT 15 U/L (<34); BILIRUBIN,DIRECT < 0.1 MG/DL (<0.4); BILIRUBIN,TOTAL 0.3 MG/DL (0.3-1.2); BLOOD UREA NITROGEN 13 MG/DL (9-23); CALCIUM LEVEL 9.6 MG/DL (8.5-10.1); CARBON DIOXIDE LEVEL 27 MMOL/L (20-31); CHLORIDE LEVEL 107 MMOL/L (98-107); CREATININE FOR GFR 0.49 MG/DL (0.55-1.30); GLOMERULAR FILTRATION RATE > 60.0 (>60); GLUCOSE, FASTING 98 MG/DL (60-100); SALICYLATE LEVEL < 3.0 MG/DL (<30); SODIUM LEVEL 138 MMOL/L (136-145); TOTAL PROTEIN 6.7 G/DL (5.7-8.2)
[2024-11-22 18:24] LABS: THYROID STIMULATING HORMONE 0.915 uIU/ML (0.55-4.78)
[2024-11-22 18:27] LABS: HCG, SERUM QUALITATIVE NEGATIVE (NEGATIVE)
[2024-11-22 18:57] LABS: AMPHETAMINES LEVEL URINE NEGATIVE (NEGATIVE); BARBITURATES URINE NEGATIVE (NEGATIVE); BENZODIAZEPINES URINE NEGATIVE (NEGATIVE); CANNABINOIDS URINE NEGATIVE (NEGATIVE); COCAINE METABOLITE URINE NEGATIVE (NEGATIVE); METHADONE URINE NEGATIVE (NEGATIVE); OPIATES URINE NEGATIVE (NEGATIVE); PHENCYCLIDINE URINE NEGATIVE (NEGATIVE)
[2024-11-22] MEDS ORDERED: med rec comment (22:08)
[2024-11-22] MEDS ORDERED: HOME MED LIST COMPLETE! XX SCH (22:10)
[2024-11-23 09:35] VITALS: BP 140/81; TEMP 98.6; O2SAT 94
== END 2024-11-23 09:38 | disposition home or self-care (01) ==
LOC: M ED 17:17
DX: F60.3 Borderline personality disorder (principal); J45.909 Unspecified asthma, uncomplicated; F32.A Depression, unspecified; F31.9 Bipolar disorder, unspecified; I10 Essential (primary) hypertension; Z79.52 Long term (current) use of systemic steroids; Z79.899 Other long term (current) drug therapy; Z87.42 Personal history of other diseases of the female genital tract

== ENCOUNTER 2024-11-24 01:49 | Emergency (ER) | payer OTHER ==
[~2024-11-24] VITALS: Ht 165.1 cm; Wt 136.4 kg
[~2024-11-24 01:49] MED LIST changes: +med rec comment
[2024-11-24 02:18] VITALS: BP 128/79; TEMP 98.4; O2SAT 98
[2024-11-24 02:37] LABS: HEMATOCRIT 39.1 % (36.0-47.0); HEMOGLOBIN 12.5 g/dl (12.0-15.5); MEAN CORPUSCULAR HEMOGLOBIN 27.1 pg (27.0-33.0); MEAN CORPUSCULAR VOLUME 84.8 fl (80.0-96.0); PLATELET COUNT, AUTOMATED 342 10^3/uL (150-450); RED BLOOD COUNT 4.61 10^6/uL (4.00-5.40); WHITE BLOOD COUNT 9.9 10^3/uL (4.0-10.0)
[2024-11-24 02:50] LABS: ETHYL ALCOHOL (ETHANOL) 0.005 % (0.000-0.010)
[2024-11-24 02:52] LABS: HCG, SERUM QUALITATIVE NEGATIVE (NEGATIVE); SALICYLATE LEVEL < 3.0 MG/DL (<30)
[2024-11-24 02:55] LABS: ALBUMIN 3.2 G/DL (3.2-5.2); ALKALINE PHOSPHATASE 88 U/L (35-104); ALT/SGPT 34 U/L (7.0-40); AST/SGOT 19 U/L (<34); BILIRUBIN,DIRECT < 0.1 MG/DL (<0.4); BILIRUBIN,TOTAL 0.3 MG/DL (0.3-1.2); BLOOD UREA NITROGEN 16 MG/DL (9-23); CALCIUM LEVEL 9.6 MG/DL (8.5-10.1); CARBON DIOXIDE LEVEL 28 MMOL/L (20-31); CHLORIDE LEVEL 105 MMOL/L (98-107); CREATININE FOR GFR 0.52 MG/DL (0.55-1.30); GLOMERULAR FILTRATION RATE > 60.0 (>60); GLUCOSE, FASTING 125 MG/DL (60-100); POTASSIUM SERUM 4.2 MMOL/L (3.5-5.1); SODIUM LEVEL 142 MMOL/L (136-145); THYROID STIMULATING HORMONE 4.036 uIU/ML (0.55-4.78); TOTAL PROTEIN 7.2 G/DL (5.7-8.2)
[2024-11-24 03:19] LABS: AMPHETAMINES LEVEL URINE NEGATIVE (NEGATIVE); BARBITURATES URINE NEGATIVE (NEGATIVE); BENZODIAZEPINES URINE NEGATIVE (NEGATIVE); CANNABINOIDS URINE NEGATIVE (NEGATIVE); COCAINE METABOLITE URINE NEGATIVE (NEGATIVE); METHADONE URINE NEGATIVE (NEGATIVE); OPIATES URINE NEGATIVE (NEGATIVE); PHENCYCLIDINE URINE NEGATIVE (NEGATIVE)
== END 2024-11-24 12:28 | disposition home or self-care (01) ==
LOC: M ED 01:49
DX: Z76.5 Malingerer [conscious simulation] (principal); F60.3 Borderline personality disorder; F31.9 Bipolar disorder, unspecified; Z79.52 Long term (current) use of systemic steroids; Z79.899 Other long term (current) drug therapy

== ENCOUNTER 2024-11-30 06:47 | Emergency (ER) | payer OTHER ==
[~2024-11-30] VITALS: Ht 160 cm; Wt 177.3 kg
[2024-11-30] MEDS: hydroCHLOROthiazide 12.5 MG CAPSULE PO ONE (09:20)
[2024-11-30] MEDS: atenoloL 25 MG TAB PO ONE (09:20)
[2024-11-30 13:12] VITALS: BP 139/90; TEMP 97; O2SAT 98
== END 2024-11-30 13:16 | disposition home or self-care (01) ==
LOC: M ED 06:47
DX: Z76.5 Malingerer [conscious simulation] (principal); F60.3 Borderline personality disorder; I10 Essential (primary) hypertension; J45.909 Unspecified asthma, uncomplicated; Z79.52 Long term (current) use of systemic steroids; Z79.899 Other long term (current) drug therapy

== ENCOUNTER 2024-12-02 05:15 | Emergency (ER) | payer OTHER ==
[~2024-12-02] VITALS: Ht 160 cm; Wt 136.4 kg
[2024-12-02 06:04] LABS: HEMATOCRIT 39.3 % (36.0-47.0); HEMOGLOBIN 12.6 g/dl (12.0-15.5); MEAN CORPUSCULAR HGB CONC 32.1 g/dl (32.0-36.5); MEAN CORPUSCULAR VOLUME 84.2 fl (80.0-96.0); PLATELET COUNT, AUTOMATED 321 10^3/uL (150-450); RED BLOOD COUNT 4.67 10^6/uL (4.00-5.40)
[2024-12-02 06:19] LABS: ETHYL ALCOHOL (ETHANOL) < 0.003 % (0.000-0.010)
[2024-12-02 06:20] LABS: ALBUMIN 3.3 G/DL (3.2-5.2); ALKALINE PHOSPHATASE 89 U/L (35-104); ALT/SGPT 32 U/L (7.0-40); AST/SGOT 16 U/L (<34); BILIRUBIN,DIRECT < 0.1 MG/DL (<0.4); BILIRUBIN,TOTAL 0.3 MG/DL (0.3-1.2); BLOOD UREA NITROGEN 12 MG/DL (9-23); CALCIUM LEVEL 8.9 MG/DL (8.5-10.1); CARBON DIOXIDE LEVEL 26 MMOL/L (20-31); CHLORIDE LEVEL 107 MMOL/L (98-107); CREATININE FOR GFR 0.49 MG/DL (0.55-1.30); GLOMERULAR FILTRATION RATE > 60.0 (>60); GLUCOSE, FASTING 127 MG/DL (60-100); HCG, SERUM QUALITATIVE NEGATIVE (NEGATIVE); POTASSIUM SERUM 4.2 MMOL/L (3.5-5.1); SALICYLATE LEVEL < 3.0 MG/DL (<30); SODIUM LEVEL 141 MMOL/L (136-145); TOTAL PROTEIN 6.9 G/DL (5.7-8.2)
[2024-12-02 06:22] LABS: THYROID STIMULATING HORMONE 2.848 uIU/ML (0.55-4.78)
[2024-12-02 13:53] LABS: AMPHETAMINES LEVEL URINE NEGATIVE (NEGATIVE); BARBITURATES URINE NEGATIVE (NEGATIVE); BENZODIAZEPINES URINE NEGATIVE (NEGATIVE); CANNABINOIDS URINE NEGATIVE (NEGATIVE); COCAINE METABOLITE URINE NEGATIVE (NEGATIVE); METHADONE URINE NEGATIVE (NEGATIVE); OPIATES URINE NEGATIVE (NEGATIVE); PHENCYCLIDINE URINE NEGATIVE (NEGATIVE)
[2024-12-02] MEDS ORDERED: AMOX875T2 PO (16:45)
[2024-12-02] MEDS ORDERED: LURA20TA PO (16:45)
[2024-12-02] MEDS ORDERED: CIPR7.5D2 AD (16:47)
[2024-12-02] MEDS ORDERED: HOME MED LIST COMPLETE! XX SCH (16:50)
[2024-12-03] MEDS ORDERED: traZODone 50 MG TAB PO PRN (07:10)
[2024-12-03] MEDS ORDERED: zolPIDEM TARTRATE 5 MG TAB PO PRN (07:10)
[2024-12-03] MEDS: DIVALPROEX 500 MG TAB PO SCH (09:33)
[2024-12-03] MEDS: hydroCHLOROthiazide 12.5 MG CAPSULE PO SCH (09:33)
[2024-12-03] MEDS: AUGMENTIN 875 MG TAB PO SCH (09:33)
[2024-12-03] MEDS: CIPRODEX OTIC SUSP 7.5ML AD SCH (09:34)
[2024-12-03] MEDS: VENLAFAXINE **XR** 75MG CAPSULE PO SCH (09:34)
[2024-12-03] MEDS: atenoloL 25 MG TAB PO SCH (09:34)
[2024-12-03 15:32] VITALS: BP 140/90; TEMP 97.8; O2SAT 98
[2024-12-03] MEDS: LURASIDONE 20 MG TAB (LATUDA) PO SCH (18:42)
== END 2024-12-04 11:07 | disposition home or self-care (01) ==
LOC: M ED 05:15
DX: F60.3 Borderline personality disorder (principal); F32.A Depression, unspecified; R45.851 Suicidal ideations; F31.9 Bipolar disorder, unspecified; Z79.52 Long term (current) use of systemic steroids; Z79.2 Long term (current) use of antibiotics; Z79.899 Other long term (current) drug therapy; Z76.5 Malingerer [conscious simulation]

== ENCOUNTER 2024-12-31 02:18 | Emergency (ER) | payer OTHER ==
[~2024-12-31] VITALS: Ht 160 cm; Wt 167.0 kg
[~2024-12-31 02:18] MED LIST changes: +AMOX875T2 PO; +CIPR7.5D2 AD; +LURA20TA PO
[2024-12-31 03:09] LABS: HEMATOCRIT 40.9 % (36.0-47.0); HEMOGLOBIN 12.8 g/dl (12.0-15.5); MEAN CORPUSCULAR HEMOGLOBIN 26.4 pg (27.0-33.0); MEAN CORPUSCULAR HGB CONC 31.3 g/dl (32.0-36.5); MEAN CORPUSCULAR VOLUME 84.5 fl (80.0-96.0); PLATELET COUNT, AUTOMATED 316 10^3/uL (150-450); RED BLOOD COUNT 4.84 10^6/uL (4.00-5.40); WHITE BLOOD COUNT 10.7 10^3/uL (4.0-10.0)
[2024-12-31 03:32] LABS: AMPHETAMINES LEVEL URINE NEGATIVE (NEGATIVE); BARBITURATES URINE NEGATIVE (NEGATIVE); BENZODIAZEPINES URINE NEGATIVE (NEGATIVE); CANNABINOIDS URINE NEGATIVE (NEGATIVE); COCAINE METABOLITE URINE NEGATIVE (NEGATIVE); METHADONE URINE NEGATIVE (NEGATIVE); OPIATES URINE NEGATIVE (NEGATIVE); PHENCYCLIDINE URINE NEGATIVE (NEGATIVE)
[2024-12-31 03:33] LABS: ETHYL ALCOHOL (ETHANOL) 0.006 % (0.000-0.010)
[2024-12-31 03:35] LABS: ALBUMIN 3.2 G/DL (3.2-5.2); ALKALINE PHOSPHATASE 83 U/L (35-104); ALT/SGPT 28 U/L (7.0-40); AST/SGOT 12 U/L (<34); BILIRUBIN,DIRECT < 0.1 MG/DL (<0.4); BILIRUBIN,TOTAL 0.3 MG/DL (0.3-1.2); BLOOD UREA NITROGEN 9 MG/DL (9-23); CALCIUM LEVEL 8.9 MG/DL (8.5-10.1); CARBON DIOXIDE LEVEL 27 MMOL/L (20-31); CHLORIDE LEVEL 108 MMOL/L (98-107); CREATININE FOR GFR 0.58 MG/DL (0.55-1.30); GLOMERULAR FILTRATION RATE > 60.0 (>60); GLUCOSE, FASTING 113 MG/DL (60-100); POTASSIUM SERUM 4.3 MMOL/L (3.5-5.1); SALICYLATE LEVEL < 3.0 MG/DL (<30); SODIUM LEVEL 143 MMOL/L (136-145); TOTAL PROTEIN 6.9 G/DL (5.7-8.2)
[2024-12-31 03:37] LABS: THYROID STIMULATING HORMONE 2.408 uIU/ML (0.55-4.78)
[2024-12-31 06:39] LABS: VALPROIC ACID (DEPAKOTE) 15.4 UG/ML (50.0-100.0)
[2024-12-31] MEDS ORDERED: HOME MED LIST COMPLETE! XX SCH (11:25)
[2024-12-31 22:17] VITALS: BP 117/56; TEMP 97.1; O2SAT 99
== END 2025-01-01 13:35 | disposition home or self-care (01) ==
LOC: M ED 02:18
DX: R45.851 Suicidal ideations (principal); F33.9 Major depressive disorder, recurrent, unspecified; F60.3 Borderline personality disorder; I10 Essential (primary) hypertension; E66.01 Morbid (severe) obesity due to excess calories; Z68.44 Body mass index [BMI] 60.0-69.9, adult; Z79.899 Other long term (current) drug therapy

== ENCOUNTER 2025-01-02 05:45 | Inpatient (IN) | payer MEDICAID, OTHER ==
[~2025-01-02] VITALS: Ht 160 cm; Wt 167.0 kg
[2025-01-02 12:20] LABS: AMPHETAMINES LEVEL URINE NEGATIVE (NEGATIVE); BARBITURATES URINE NEGATIVE (NEGATIVE); BENZODIAZEPINES URINE NEGATIVE (NEGATIVE); CANNABINOIDS URINE NEGATIVE (NEGATIVE); COCAINE METABOLITE URINE NEGATIVE (NEGATIVE); METHADONE URINE NEGATIVE (NEGATIVE); OPIATES URINE NEGATIVE (NEGATIVE); PHENCYCLIDINE URINE NEGATIVE (NEGATIVE)
[2025-01-02 15:12] LABS: HEMATOCRIT 37.6 % (36.0-47.0); MEAN CORPUSCULAR HEMOGLOBIN 26.7 pg (27.0-33.0); MEAN CORPUSCULAR HGB CONC 31.9 g/dl (32.0-36.5); MEAN CORPUSCULAR VOLUME 83.6 fl (80.0-96.0); PLATELET COUNT, AUTOMATED 276 10^3/uL (150-450); WHITE BLOOD COUNT 8.8 10^3/uL (4.0-10.0)
[2025-01-02 15:32] LABS: HCG, SERUM QUALITATIVE NEGATIVE (NEGATIVE)
[2025-01-02 15:33] LABS: SALICYLATE LEVEL < 3.0 MG/DL (<30)
[2025-01-02 15:48] LABS: ALBUMIN 2.8 G/DL (3.2-5.2); ALKALINE PHOSPHATASE 80 U/L (35-104); ALT/SGPT 25 U/L (7.0-40); AST/SGOT 15 U/L (<34); BILIRUBIN,TOTAL 0.4 MG/DL (0.3-1.2); BLOOD UREA NITROGEN 13 MG/DL (9-23); CALCIUM LEVEL 8.6 MG/DL (8.5-10.1); CARBON DIOXIDE LEVEL 25 MMOL/L (20-31); CHLORIDE LEVEL 108 MMOL/L (98-107); CREATININE FOR GFR 0.48 MG/DL (0.55-1.30); ETHYL ALCOHOL (ETHANOL) < 0.003 % (0.000-0.010); GLOMERULAR FILTRATION RATE > 60.0 (>60); GLUCOSE, FASTING 110 MG/DL (60-100); SODIUM LEVEL 140 MMOL/L (136-145); THYROID STIMULATING HORMONE 2.415 uIU/ML (0.55-4.78)
[2025-01-02 15:50] LABS: BILIRUBIN,DIRECT 0.1 MG/DL (<0.4); TOTAL PROTEIN 6.2 G/DL (5.7-8.2)
[2025-01-02] MEDS ORDERED: HOME MED LIST COMPLETE! XX SCH (18:10)
[2025-01-02] MEDS ORDERED: traZODone 50 MG TAB PO PRN (21:15)
[2025-01-02] MEDS ORDERED: MAALOX 30 ML SUSP *UDC PO PRN (21:15)
[2025-01-02] MEDS ORDERED: MOM 30ML SUSPENSION UDC PO PRN (21:15)
[2025-01-03] MEDS ORDERED: ALBUTEROL 90 MCG/ACT 8GM HFA INHALER INH PRN (08:35)
[2025-01-03] MEDS ORDERED: traZODone 50 MG TAB PO PRN (08:35)
[2025-01-03 09:54] VITALS: BP 142/82
[2025-01-03] MEDS: atenoloL 25 MG TAB PO SCH (09:57)
[2025-01-03] MEDS: VENLAFAXINE **XR** 75MG CAPSULE PO SCH (09:58)
[2025-01-03] MEDS: DIVALPROEX 500 MG TAB PO SCH (09:58)
[2025-01-03] MEDS: hydroCHLOROthiazide 12.5 MG CAPSULE PO SCH (11:31)
[2025-01-03] MEDS: LURASIDONE 20 MG TAB (LATUDA) PO SCH (20:52)
[2025-01-05 09:29] VITALS: BP 124/82
[2025-01-05] MEDS: diphenhydrAMINE 25MG CAP PO PRN (11:18)
[2025-01-05] MEDS: ACETAMINOPHEN 325 MG TAB PO PRN (11:23)
[2025-01-05] MEDS: MAGNESIUM CITRATE 300ML BTL PO ONE (17:50)
[2025-01-05] MEDS: DOCUSATE SODIUM 100MG CAPSULE PO SCH (20:47)
[2025-01-05] MEDS: DIVALPROEX 500 MG TAB PO SCH (20:47)
[2025-01-05] MEDS: traZODone 50 MG TAB PO SCH (20:47)
[2025-01-06] MEDS: IBUPROFEN 400MG TAB PO PRN (03:25)
[2025-01-06 08:35] VITALS: BP 129/85
[2025-01-06 16:01] VITALS: BP 125/81; TEMP 96.2; O2SAT 99
[2025-01-08 09:08] VITALS: BP 133/89
[2025-01-08] MEDS ORDERED: DIVA500T94 PO (10:13)
[2025-01-08] MEDS ORDERED: CHLOR25TA PO (10:13)
== END 2025-01-08 12:14 | disposition home or self-care (01) | DRG 753 ==
LOC: EDBD 05:45 → M ED 05:45 → M ED INP 21:14 → M PSY 21:39
PROVIDERS: ADMIT Psychiatry & Neurology Neurology; ATTEND Psychiatry & Neurology Neurology
DX: F31.81 Bipolar II disorder (principal); E66.01 Morbid (severe) obesity due to excess calories; R45.851 Suicidal ideations; F60.3 Borderline personality disorder; F41.1 Generalized anxiety disorder; I10 Essential (primary) hypertension; J45.909 Unspecified asthma, uncomplicated; Z62.810 Personal history of physical and sexual abuse in childhood; Z91.410 Personal history of adult physical and sexual abuse; Z79.899 Other long term (current) drug therapy; K21.9 Gastro-esophageal reflux disease without esophagitis; L83 Acanthosis nigricans

== ENCOUNTER 2025-01-13 22:18 | Emergency (ER) | payer OTHER ==
[~2025-01-13] VITALS: Ht 160 cm; Wt 173.6 kg
[~2025-01-13 22:18] MED LIST changes: +CHLOR25TA PO
[2025-01-13 23:29] LABS: HEMATOCRIT 40.7 % (36.0-47.0); HEMOGLOBIN 12.6 g/dl (12.0-15.5); MEAN CORPUSCULAR HEMOGLOBIN 26.9 pg (27.0-33.0); MEAN CORPUSCULAR VOLUME 86.8 fl (80.0-96.0); PLATELET COUNT, AUTOMATED 271 10^3/uL (150-450); RED BLOOD COUNT 4.69 10^6/uL (4.00-5.40); WHITE BLOOD COUNT 10.1 10^3/uL (4.0-10.0)
[2025-01-13 23:54] LABS: ETHYL ALCOHOL (ETHANOL) < 0.003 % (0.000-0.010); VALPROIC ACID (DEPAKOTE) 37.9 UG/ML (50.0-100.0)
[2025-01-13 23:55] LABS: SALICYLATE LEVEL < 3.0 MG/DL (<30)
[2025-01-13 23:56] LABS: ALBUMIN 3.2 G/DL (3.2-5.2); ALKALINE PHOSPHATASE 76 U/L (35-104); ALT/SGPT 59 U/L (7.0-40); AST/SGOT 32 U/L (<34); BILIRUBIN,DIRECT < 0.1 MG/DL (<0.4); BILIRUBIN,TOTAL 0.3 MG/DL (0.3-1.2); BLOOD UREA NITROGEN 14 MG/DL (9-23); CALCIUM LEVEL 9.1 MG/DL (8.5-10.1); CARBON DIOXIDE LEVEL 28 MMOL/L (20-31); CHLORIDE LEVEL 105 MMOL/L (98-107); CREATININE FOR GFR 0.56 MG/DL (0.55-1.30); GLOMERULAR FILTRATION RATE > 60.0 (>60); GLUCOSE, FASTING 104 MG/DL (60-100); SODIUM LEVEL 143 MMOL/L (136-145); TOTAL PROTEIN 6.6 G/DL (5.7-8.2)
[2025-01-13 23:58] LABS: THYROID STIMULATING HORMONE 1.759 uIU/ML (0.55-4.78)
[2025-01-14 00:01] LABS: HCG, SERUM QUALITATIVE NEGATIVE (NEGATIVE)
[2025-01-14 05:50] VITALS: BP 126/80; TEMP 96.7; O2SAT 100
[2025-01-14 07:55] LABS: AMPHETAMINES LEVEL URINE NEGATIVE (NEGATIVE)
[2025-01-14 07:56] LABS: BARBITURATES URINE NEGATIVE (NEGATIVE); BENZODIAZEPINES URINE NEGATIVE (NEGATIVE); CANNABINOIDS URINE NEGATIVE (NEGATIVE); COCAINE METABOLITE URINE NEGATIVE (NEGATIVE); METHADONE URINE NEGATIVE (NEGATIVE); OPIATES URINE NEGATIVE (NEGATIVE); PHENCYCLIDINE URINE NEGATIVE (NEGATIVE)
== END 2025-01-14 09:00 | disposition home or self-care (01) ==
LOC: M ED 22:18
DX: F60.3 Borderline personality disorder (principal); Z76.5 Malingerer [conscious simulation]; F41.9 Anxiety disorder, unspecified; Z79.52 Long term (current) use of systemic steroids; Z79.899 Other long term (current) drug therapy

== ENCOUNTER 2025-01-15 23:34 | Emergency (ER) | payer OTHER ==
[2025-01-16] MEDS: ALPRAZolam 0.5 MG TAB PO ONE (01:22)
[2025-01-16 04:33] LABS: HEMOGLOBIN 13.5 g/dl (12.0-15.5); MEAN CORPUSCULAR HEMOGLOBIN 26.9 pg (27.0-33.0); MEAN CORPUSCULAR HGB CONC 32.1 g/dl (32.0-36.5); MEAN CORPUSCULAR VOLUME 83.7 fl (80.0-96.0); PLATELET COUNT, AUTOMATED 295 10^3/uL (150-450); RED BLOOD COUNT 5.02 10^6/uL (4.00-5.40); WHITE BLOOD COUNT 11.9 10^3/uL (4.0-10.0)
[2025-01-16 04:58] LABS: ETHYL ALCOHOL (ETHANOL) 0.003 % (0.000-0.010)
[2025-01-16 05:00] LABS: SALICYLATE LEVEL < 3.0 MG/DL (<30)
[2025-01-16 05:01] LABS: HCG, SERUM QUALITATIVE NEGATIVE (NEGATIVE)
[2025-01-16 05:02] LABS: THYROID STIMULATING HORMONE 1.935 uIU/ML (0.55-4.78)
[2025-01-16 05:05] LABS: ALBUMIN 3.5 G/DL (3.2-5.2); ALKALINE PHOSPHATASE 78 U/L (35-104); ALT/SGPT 49 U/L (7.0-40); AST/SGOT 22 U/L (<34); BILIRUBIN,DIRECT 0.2 MG/DL (<0.4); BILIRUBIN,TOTAL 0.5 MG/DL (0.3-1.2); BLOOD UREA NITROGEN 9 MG/DL (9-23); CALCIUM LEVEL 9.3 MG/DL (8.5-10.1); CARBON DIOXIDE LEVEL 28 MMOL/L (20-31); CHLORIDE LEVEL 104 MMOL/L (98-107); CREATININE FOR GFR 0.68 MG/DL (0.55-1.30); GLOMERULAR FILTRATION RATE > 60.0 (>60); GLUCOSE, FASTING 96 MG/DL (60-100); POTASSIUM SERUM 3.8 MMOL/L (3.5-5.1); SODIUM LEVEL 142 MMOL/L (136-145); TOTAL PROTEIN 7.2 G/DL (5.7-8.2)
[2025-01-16 05:33] LABS: AMPHETAMINES LEVEL URINE NEGATIVE (NEGATIVE); BARBITURATES URINE NEGATIVE (NEGATIVE); CANNABINOIDS URINE NEGATIVE (NEGATIVE); COCAINE METABOLITE URINE NEGATIVE (NEGATIVE); METHADONE URINE NEGATIVE (NEGATIVE); OPIATES URINE NEGATIVE (NEGATIVE); PHENCYCLIDINE URINE NEGATIVE (NEGATIVE)
[2025-01-16 05:37] LABS: BENZODIAZEPINES URINE POSITIVE (NEGATIVE); KETONE, URINE AUTO RFX 1+ mg/dL (NEGATIVE); LEUKOCYTE ESTERASE UR AUTO RFX 2+ (NEGATIVE); MUCUS, URINE RFX MODERATE (NEGATIVE); NITRITE, URINE AUTO RFX POSITIVE (NEGATIVE); RBC, URINE AUTO RFX TNTC /HPF (0-3); SQUAM EPITHELIAL CELL UR AURFX 6 /HPF (0-6); TRANSITIONAL EPITHELIAL AU RFX 1 /HPF; WBC, URINE AUTO RFX TNTC /HPF (0-3)
[2025-01-16] MEDS: FOSFOMYCIN TROMETHAMINE 3 GM POWDER PACKET (MONUROL) PO ONE (06:44)
[2025-01-16 06:48] VITALS: BP 108/56
[2025-01-16] MEDS: hydroCHLOROthiazide 12.5 MG CAPSULE PO ONE (06:48)
[2025-01-16] MEDS: atenoloL 25 MG TAB PO ONE (06:48)
[2025-01-16] MEDS ORDERED: CHLOR25TA PO (10:03)
[2025-01-16] MEDS ORDERED: DEPA1TAB3 PO (10:03)
[2025-01-16] MEDS ORDERED: HOME MED LIST COMPLETE! XX SCH (10:05)
[2025-01-16 13:55] VITALS: BP 144/101; TEMP 96.7; O2SAT 95
== END 2025-01-16 13:58 | disposition home or self-care (01) ==
LOC: M ED 23:34
DX: F60.3 Borderline personality disorder (principal); Z76.5 Malingerer [conscious simulation]; F32.A Depression, unspecified; I10 Essential (primary) hypertension; F41.9 Anxiety disorder, unspecified; F31.9 Bipolar disorder, unspecified; Z79.52 Long term (current) use of systemic steroids; Z79.899 Other long term (current) drug therapy

== ENCOUNTER 2025-01-17 21:44 | Inpatient (IN) | payer MEDICAID, OTHER ==
[~2025-01-17] VITALS: Ht 165.1 cm; Wt 169.4 kg
[2025-01-17 22:09] LABS: HEMATOCRIT 42.7 % (36.0-47.0); HEMOGLOBIN 13.6 g/dl (12.0-15.5); MEAN CORPUSCULAR HEMOGLOBIN 26.8 pg (27.0-33.0); MEAN CORPUSCULAR HGB CONC 31.9 g/dl (32.0-36.5); MEAN CORPUSCULAR VOLUME 84.2 fl (80.0-96.0); PLATELET COUNT, AUTOMATED 329 10^3/uL (150-450); RED BLOOD COUNT 5.07 10^6/uL (4.00-5.40); WHITE BLOOD COUNT 11.4 10^3/uL (4.0-10.0)
[2025-01-17 22:37] LABS: ETHYL ALCOHOL (ETHANOL) < 0.003 % (0.000-0.010)
[2025-01-17 22:39] LABS: SALICYLATE LEVEL < 3.0 MG/DL (<30)
[2025-01-17 22:40] LABS: HCG, SERUM QUALITATIVE NEGATIVE (NEGATIVE)
[2025-01-17 22:45] LABS: ALBUMIN 3.8 G/DL (3.2-5.2); ALKALINE PHOSPHATASE 81 U/L (35-104); ALT/SGPT 47 U/L (7.0-40); AST/SGOT 25 U/L (<34); BILIRUBIN,DIRECT 0.2 MG/DL (<0.4); BILIRUBIN,TOTAL 0.6 MG/DL (0.3-1.2); BLOOD UREA NITROGEN 12 MG/DL (9-23); CALCIUM LEVEL 9.4 MG/DL (8.5-10.1); CARBON DIOXIDE LEVEL 27 MMOL/L (20-31); CHLORIDE LEVEL 102 MMOL/L (98-107); CREATININE FOR GFR 0.67 MG/DL (0.55-1.30); GLOMERULAR FILTRATION RATE > 60.0 (>60); GLUCOSE, FASTING 139 MG/DL (60-100); POTASSIUM SERUM 3.6 MMOL/L (3.5-5.1); SODIUM LEVEL 140 MMOL/L (136-145); THYROID STIMULATING HORMONE 1.904 uIU/ML (0.55-4.78); TOTAL PROTEIN 7.7 G/DL (5.7-8.2)
[2025-01-17] MEDS: DERMABOND TOPICAL SKIN ADHESIVE TOP ONE (22:58)
[2025-01-18] MEDS ORDERED: HOME MED LIST COMPLETE! XX SCH (10:10)
[2025-01-19] MEDS: NICOTINE 14 MG/24 HR TRANSDERMAL TD SCH (09:00)
[2025-01-19] MEDS ORDERED: OLANZapine 5 MG TAB PO PRN (14:45)
[2025-01-19] MEDS ORDERED: traZODone 50 MG TAB PO PRN (14:45)
[2025-01-19] MEDS ORDERED: MOM 30ML SUSPENSION UDC PO PRN (14:45)
[2025-01-19] MEDS ORDERED: ALBUTEROL 90 MCG/ACT 8GM HFA INHALER INH PRN (16:25)
[2025-01-19] MEDS: traZODone 50 MG TAB PO PRN (20:09)
[2025-01-19] MEDS: DIVALPROEX 500 MG TAB PO SCH (20:10)
[2025-01-19] MEDS: LORazepam 1 MG TAB PO PRN (20:10)
[2025-01-19] MEDS: diphenhydrAMINE 25MG CAP PO PRN (20:10)
[2025-01-19 20:19] LABS: AMPHETAMINES LEVEL URINE NEGATIVE (NEGATIVE); BENZODIAZEPINES URINE NEGATIVE (NEGATIVE); COCAINE METABOLITE URINE NEGATIVE (NEGATIVE)
[2025-01-19 20:20] LABS: BARBITURATES URINE NEGATIVE (NEGATIVE); CANNABINOIDS URINE NEGATIVE (NEGATIVE); METHADONE URINE NEGATIVE (NEGATIVE); OPIATES URINE NEGATIVE (NEGATIVE); PHENCYCLIDINE URINE NEGATIVE (NEGATIVE)
[2025-01-20] MEDS: VENLAFAXINE **XR** 75MG CAPSULE PO SCH (11:20)
[2025-01-20] MEDS: hydroCHLOROthiazide 12.5 MG CAPSULE PO SCH (11:21)
[2025-01-20] MEDS: atenoloL 25 MG TAB PO SCH (11:21)
[2025-01-21 09:29] VITALS: BP 140/92
[2025-01-21] MEDS: ACETAMINOPHEN 325 MG TAB PO PRN (21:53)
[2025-01-22 15:29] VITALS: BP 144/101; TEMP 97.2; O2SAT 99
[2025-01-23 02:43] VITALS: BP 138/92; O2SAT 97
[2025-01-23] MEDS: CALCIUM CARBONATE 500 MG CHEW U/D PO ONE (05:57)
[2025-01-23 09:34] VITALS: BP 137/94
[2025-01-23] MEDS: LURASIDONE 20 MG TAB (LATUDA) PO SCH (15:28)
[2025-01-24 08:51] VITALS: BP 140/90
[2025-01-25 06:35] VITALS: BP 168/98; TEMP 97.2; O2SAT 96
[2025-01-25] MEDS: OLANZapine 5 MG TAB PO SCH (21:00)
[2025-01-26] MEDS: MULTIVITAMINS/MINERALS THERAP 1 TAB PO SCH (09:00)
[2025-01-26 15:25] VITALS: BP 137/82; TEMP 97.3; O2SAT 100
[2025-01-26] MEDS: DIVALPROEX 250MG TAB PO SCH (21:00)
[2025-01-27 07:35] VITALS: BP 137/92; TEMP 97; O2SAT 99
[2025-01-27] MEDS: DIVALPROEX 500 MG TAB PO SCH (09:00)
[2025-01-27 15:28] VITALS: BP 144/88; TEMP 97.9; O2SAT 100
[2025-01-27 16:42] LABS: HEMATOCRIT 42.5 % (36.0-47.0); HEMOGLOBIN 13.6 g/dl (12.0-15.5); MEAN CORPUSCULAR HEMOGLOBIN 26.9 pg (27.0-33.0); PLATELET COUNT, AUTOMATED 271 10^3/uL (150-450); RED BLOOD COUNT 5.06 10^6/uL (4.00-5.40); WHITE BLOOD COUNT 9.5 10^3/uL (4.0-10.0)
[2025-01-27] MEDS: ANUSOL HC CREAM 30GM TOP SCH (20:47)
[2025-01-27] MEDS: NYSTATIN 100,000 UNITS/GM TOPICAL PWD 15GM TOP SCH (20:47)
[2025-01-27] MEDS: NEOSPORIN TOP OINT 15GM TOP SCH (20:47)
[2025-01-28 06:49] VITALS: BP 118/57; TEMP 97; O2SAT 98
[2025-01-28 09:10] VITALS: BP 141/80; O2SAT 99
[2025-01-28 15:35] VITALS: BP 142/88; TEMP 97.8; O2SAT 98
[2025-01-29 06:36] VITALS: BP 147/90; TEMP 97.4; O2SAT 96
[2025-01-29 17:24] VITALS: BP 137/71; TEMP 97; O2SAT 98
[2025-01-30 07:04] VITALS: BP 107/54; TEMP 97.2; O2SAT 97
[2025-01-30 08:49] VITALS: BP 118/82
[2025-01-30 17:10] VITALS: BP 145/93; TEMP 96.8; O2SAT 97
[2025-01-31] MEDS: DIVALPROEX 250MG TAB PO ONE (09:08)
[2025-01-31 15:16] VITALS: BP 143/82; TEMP 97.8; O2SAT 98
[2025-02-01] MEDS: LURASIDONE HCL 40MG TAB (LATUDA) PO SCH (09:06)
[2025-02-01] MEDS: DIVALPROEX 250MG TAB PO SCH (09:07)
[2025-02-01] MEDS: MAALOX 30 ML SUSP *UDC PO PRN (12:33)
[2025-02-01 16:45] VITALS: BP 132/91; TEMP 97.6; O2SAT 95
[2025-02-01] MEDS: PRAZOSIN 1 MG CAP PO SCH (20:10)
[2025-02-02] MEDS ORDERED: OLAN1TAB16 PO (07:35)
[2025-02-02] MEDS ORDERED: LATU40TA2 PO (07:35)
[2025-02-02] MEDS ORDERED: VENL150T24 PO (07:35)
[2025-02-02] MEDS ORDERED: PRAZ1CAP PO (07:35)
[2025-02-02] MEDS ORDERED: DEPA250T32 PO (07:35)
[2025-02-02] MEDS ORDERED: THERTAB19 PO (07:35)
[2025-02-02 08:05] VITALS: BP 131/82
[2025-02-02] MEDS ORDERED: DEPA1TAB3 PO (08:49)
== END 2025-02-02 13:00 | disposition home or self-care (01) | DRG 753 ==
LOC: M ED 21:44 → M ED INP 01-19 14:43 → M PSY 01-19 15:23
PROVIDERS: ADMIT Internal Medicine; ATTEND Internal Medicine
DX: F31.81 Bipolar II disorder (principal); E66.01 Morbid (severe) obesity due to excess calories; R45.851 Suicidal ideations; F41.1 Generalized anxiety disorder; F60.3 Borderline personality disorder; Z91.52 Personal history of nonsuicidal self-harm; Z62.810 Personal history of physical and sexual abuse in childhood; Z62.811 Personal history of psychological abuse in childhood; Z91.410 Personal history of adult physical and sexual abuse; Z79.899 Other long term (current) drug therapy; B37.2 Candidiasis of skin and nail; S51.811A Laceration without foreign body of right forearm, initial encounter; S51.812A Laceration without foreign body of left forearm, initial encounter; W26.8XXA Contact with other sharp object(s), not elsewhere classified, initial encounter; Y92.9 Unspecified place or not applicable; Z91.51 Personal history of suicidal behavior

== ENCOUNTER → 2025-02-06 | Outpatient (CLI) | payer OTHER ==
[~2025-02-06] MED LIST changes: +DEPA250T32 PO; +OLAN1TAB16 PO; +PROHANCE 279.3MG/ML 15ML VIAL As Ordered ONE; +PROHANCE 279.3MG/ML 5ML VIAL As Ordered ONE; +THERTAB19 PO; +VENL150T24 PO
== END ==
LOC: M RAD 01-10 15:28
PROVIDERS: ATTEND Nurse Practitioner Family
DX: H53.9 Unspecified visual disturbance (principal)
CPT/HCPCS: 70553; A9576

== ENCOUNTER 2025-02-16 18:39 | Observation (INO) | payer OTHER ==
[~2025-02-16] VITALS: Ht 160 cm; Wt 157.1 kg
[~2025-02-16 18:39] MED LIST changes: -AMBI10TA PO; -BUPR-597 PO; +BUPR-766 PO; +METH36TA13; -METH36TA5; -NYST-13 TOP; +NYST0.1C TOP; -PROHANCE 279.3MG/ML 15ML VIAL As Ordered ONE; -PROHANCE 279.3MG/ML 5ML VIAL As Ordered ONE; +VENL225T PO; -VENL225T32 PO; +ZOLP-533 PO
[2025-02-16 19:14] LABS: BASO % 0.3 % (0.0-1.0); EOS # 0.1 10^3/uL (0.0-0.5); EOS % 0.9 % (0.0-3.0); HEMATOCRIT 41.1 % (36.0-47.0); LYMPH % 45.1 % (24.0-44.0); MEAN CORPUSCULAR HEMOGLOBIN 27.4 pg (27.0-33.0); MEAN CORPUSCULAR HGB CONC 31.6 g/dl (32.0-36.5); MEAN CORPUSCULAR VOLUME 86.7 fl (80.0-96.0); MONO # 0.7 10^3/uL (0.0-0.8); MONO % 7.5 % (2.0-8.0); NEUTROPHILS % 45.9 % (36.0-66.0); PLATELET COUNT, AUTOMATED 285 10^3/uL (150-450); RED BLOOD COUNT 4.74 10^6/uL (4.00-5.40); WHITE BLOOD COUNT 8.8 10^3/uL (4.0-10.0)
[2025-02-16] MEDS: NS (Normal Saline) 0.9% 1,000 ML IV ONE (19:28)
[2025-02-16 19:38] LABS: VENOUS BASE EXCESS 1.9 (-2.0-2.0); VENOUS HCO3 28.1 MMOL/L (23.0-27.0); VENOUS O2 SATURATION 49.1 % (60.0-80.0); VENOUS PARTIAL PRESSURE CO2 49.7 mmHg (38.0-50.0); VENOUS PARTIAL PRESSURE O2 27.4 mmHg (30.0-50.0); VENOUS STANDARD HCO3 24.9 MMOL/L; VENOUS TOTAL CO2 29.6 MMOL/L (24.0-28.0)
[2025-02-16 19:54] LABS: ETHYL ALCOHOL (ETHANOL) < 0.003 % (0.000-0.010)
[2025-02-16 19:55] LABS: CPK CREATINE PHOSPHOKINASE 77 U/L (34-145); SALICYLATE LEVEL < 3.0 MG/DL (<30)
[2025-02-16 19:56] LABS: ALKALINE PHOSPHATASE 71 U/L (35-104); ALT/SGPT 72 U/L (7.0-40); AST/SGOT 33 U/L (<34); BILIRUBIN,DIRECT 0.3 MG/DL (<0.4); BILIRUBIN,TOTAL 0.9 MG/DL (0.3-1.2); BLOOD UREA NITROGEN 13 MG/DL (9-23); CALCIUM LEVEL 8.8 MG/DL (8.5-10.1); CARBON DIOXIDE LEVEL 29 MMOL/L (20-31); CHLORIDE LEVEL 106 MMOL/L (98-107); CREATININE FOR GFR 0.91 MG/DL (0.55-1.30); GLOMERULAR FILTRATION RATE > 60.0 (>60); GLUCOSE, FASTING 69 MG/DL (60-100); POTASSIUM SERUM 3.3 MMOL/L (3.5-5.1); SODIUM LEVEL 145 MMOL/L (136-145); TOTAL PROTEIN 6.2 G/DL (5.7-8.2)
[2025-02-16 19:57] LABS: THYROID STIMULATING HORMONE 2.115 uIU/ML (0.55-4.78)
[2025-02-16 20:10] LABS: HCG, SERUM QUALITATIVE NEGATIVE (NEGATIVE)
[2025-02-16 20:17] LABS: VALPROIC ACID (DEPAKOTE) 147.8 UG/ML (50.0-100.0)
[2025-02-16 20:19] LABS: MAGNESIUM LEVEL 2.3 MG/DL (1.8-2.4)
[2025-02-16] MEDS: NS (Normal Saline) 0.9% 1,000 ML IV SCH (21:12)
[2025-02-16] MEDS: KCL 10MEQ/100ML SWI (KRUN) 10 MEQ in IV 1 EA IV ONE (21:12)
[2025-02-17 05:35] LABS: AMPHETAMINES LEVEL URINE NEGATIVE (NEGATIVE); BARBITURATES URINE NEGATIVE (NEGATIVE); BENZODIAZEPINES URINE NEGATIVE (NEGATIVE); CANNABINOIDS URINE NEGATIVE (NEGATIVE); COCAINE METABOLITE URINE NEGATIVE (NEGATIVE); METHADONE URINE NEGATIVE (NEGATIVE); OPIATES URINE NEGATIVE (NEGATIVE); PHENCYCLIDINE URINE NEGATIVE (NEGATIVE)
[2025-02-17 06:29] LABS: VALPROIC ACID (DEPAKOTE) 107.6 UG/ML (50.0-100.0)
[2025-02-17 06:31] LABS: ALBUMIN 3.1 G/DL (3.2-5.2); ALKALINE PHOSPHATASE 70 U/L (35-104); ALT/SGPT 67 U/L (7.0-40); AST/SGOT 30 U/L (<34); BILIRUBIN,TOTAL 0.5 MG/DL (0.3-1.2); BLOOD UREA NITROGEN 13 MG/DL (9-23); CARBON DIOXIDE LEVEL 28 MMOL/L (20-31); CHLORIDE LEVEL 106 MMOL/L (98-107); CREATININE FOR GFR 0.88 MG/DL (0.55-1.30); GLOMERULAR FILTRATION RATE > 60.0 (>60); GLUCOSE, FASTING 69 MG/DL (60-100); POTASSIUM SERUM 3.4 MMOL/L (3.5-5.1); SODIUM LEVEL 143 MMOL/L (136-145); TOTAL PROTEIN 6.4 G/DL (5.7-8.2)
[2025-02-17] MEDS: POTASSIUM CHLORIDE 10% LIQ 20MEQ/15ML UDC PO ONE (07:17)
[2025-02-17 09:18] LABS: VALPROIC ACID (DEPAKOTE) 104.8 UG/ML (50.0-100.0)
[2025-02-17 09:22] LABS: ALBUMIN 3.5 G/DL (3.2-5.2); ALKALINE PHOSPHATASE 79 U/L (35-104); ALT/SGPT 73 U/L (7.0-40); AST/SGOT 33 U/L (<34); BILIRUBIN,TOTAL 0.5 MG/DL (0.3-1.2); BLOOD UREA NITROGEN 16 MG/DL (9-23); CALCIUM LEVEL 9.4 MG/DL (8.5-10.1); CARBON DIOXIDE LEVEL 28 MMOL/L (20-31); CHLORIDE LEVEL 105 MMOL/L (98-107); CREATININE FOR GFR 0.87 MG/DL (0.55-1.30); GLOMERULAR FILTRATION RATE > 60.0 (>60); GLUCOSE, FASTING 61 MG/DL (60-100); POTASSIUM SERUM 4.1 MMOL/L (3.5-5.1); SODIUM LEVEL 142 MMOL/L (136-145); TOTAL PROTEIN 7.1 G/DL (5.7-8.2)
[2025-02-17] MEDS ORDERED: LATU40TA2 PO (10:50)
[2025-02-17] MEDS ORDERED: PRAZ1CAP PO (10:50)
[2025-02-17] MEDS ORDERED: HOME MED LIST COMPLETE! XX SCH (10:50)
[2025-02-17] MEDS ORDERED: VENL150C43 PO (10:50)
[2025-02-17] MEDS ORDERED: THERTAB19 PO (10:50)
[2025-02-17] MEDS ORDERED: OLAN1TAB16 PO (10:50)
[2025-02-17 12:20] VITALS: BP 112/72; TEMP 96.8; O2SAT 97
[2025-02-17] MEDS: RIVAROXABAN 10MG TAB PO SCH (13:42)
[2025-02-17 16:00] VITALS: TEMP 97.2; O2SAT 95
[2025-02-17 16:07] VITALS: BP 89/41
[2025-02-17] MEDS: NS (Normal Saline) 0.9% 1,000 ML IV ONE (16:49)
[2025-02-17 16:53] VITALS: BP 89/40
[2025-02-17 18:30] VITALS: BP 96/45
[2025-02-17 20:27] VITALS: BP 99/67; TEMP 96.6; O2SAT 97
[2025-02-18] VITALS: BP 98/51; TEMP 97.2; O2SAT 96
[2025-02-18 04:00] VITALS: BP 96/41; TEMP 97.2; O2SAT 96
[2025-02-18 06:10] LABS: HEMATOCRIT 40.6 % (36.0-47.0); HEMOGLOBIN 12.8 g/dl (12.0-15.5); MEAN CORPUSCULAR HEMOGLOBIN 27.2 pg (27.0-33.0); MEAN CORPUSCULAR HGB CONC 31.5 g/dl (32.0-36.5); MEAN CORPUSCULAR VOLUME 86.4 fl (80.0-96.0); PLATELET COUNT, AUTOMATED 265 10^3/uL (150-450); WHITE BLOOD COUNT 8.1 10^3/uL (4.0-10.0)
[2025-02-18 06:36] LABS: BLOOD UREA NITROGEN 15 MG/DL (9-23); CALCIUM LEVEL 9.1 MG/DL (8.5-10.1); CARBON DIOXIDE LEVEL 27 MMOL/L (20-31); CHLORIDE LEVEL 109 MMOL/L (98-107); CREATININE FOR GFR 0.55 MG/DL (0.55-1.30); GLOMERULAR FILTRATION RATE > 60.0 (>60); GLUCOSE, FASTING 118 MG/DL (60-100); POTASSIUM SERUM 3.4 MMOL/L (3.5-5.1); SODIUM LEVEL 146 MMOL/L (136-145)
[2025-02-18 08:00] VITALS: BP 100/46; TEMP 97.3; O2SAT 98
[2025-02-18 08:52] LABS: VALPROIC ACID (DEPAKOTE) 27.2 UG/ML (50.0-100.0)
[2025-02-18] MEDS: POTASSIUM CHLORIDE 10MEQ SR TABLET PO ONE (09:37)
[2025-02-18] MEDS ORDERED: ALBUTEROL 90 MCG/ACT 8GM HFA INHALER INH PRN (10:25)
[2025-02-18 11:48] VITALS: BP 115/58; TEMP 97.3; O2SAT 97
[2025-02-18 16:38] VITALS: BP 106/44; TEMP 97.8; O2SAT 97
[2025-02-18] MEDS: LURASIDONE HCL 40MG TAB PO ONE (17:55)
[2025-02-18] MEDS: VENLAFAXINE **XR** 75MG CAPSULE PO ONE (17:56)
[2025-02-18] MEDS: OLANZapine 5 MG TAB PO SCH (20:58)
[2025-02-18 21:25] VITALS: BP 106/47; TEMP 97.3; O2SAT 98
[2025-02-19 00:08] VITALS: BP 126/64; TEMP 97.2; O2SAT 98
[2025-02-19 03:21] VITALS: BP 112/49; TEMP 97; O2SAT 99
[2025-02-19] MEDS ORDERED: LURASIDONE HCL 40MG TAB PO SCH (09:00)
[2025-02-19] MEDS ORDERED: VENLAFAXINE **XR** 75MG CAPSULE PO SCH (09:00)
[2025-02-19] MEDS ORDERED: PRAZOSIN 1 MG CAP PO SCH (09:00)
== END 2025-02-19 09:00 | disposition left against medical advice (07) ==
LOC: M ED 18:39 → M ED INP 02-17 08:50 → M MSPAV 02-17 12:34
PROVIDERS: ADMIT Internal Medicine; ATTEND Internal Medicine
DX: T14.91XA Suicide attempt, initial encounter (principal); R45.851 Suicidal ideations; I10 Essential (primary) hypertension; E78.5 Hyperlipidemia, unspecified; E03.9 Hypothyroidism, unspecified; J45.909 Unspecified asthma, uncomplicated; D50.9 Iron deficiency anemia, unspecified; F43.10 Post-traumatic stress disorder, unspecified; F31.9 Bipolar disorder, unspecified; F60.3 Borderline personality disorder; E66.9 Obesity, unspecified; Z79.899 Other long term (current) drug therapy

== ENCOUNTER 2025-02-19 09:56 | Inpatient (IN) | payer OTHER ==
[~2025-02-19] VITALS: Ht 165.1 cm; Wt 164.4 kg
[~2025-02-19 09:56] MED LIST changes: +VENL150C43 PO
[2025-02-19 14:26] VITALS: BP 126/73; TEMP 96; O2SAT 93
[2025-02-19] MEDS ORDERED: traZODone 50 MG TAB PO PRN (16:15)
[2025-02-19] MEDS ORDERED: MOM 30ML SUSPENSION UDC PO PRN (16:15)
[2025-02-19] MEDS ORDERED: HOME MED LIST COMPLETE! XX SCH (16:40)
[2025-02-19] MEDS ORDERED: ALBUTEROL 90 MCG/ACT 8GM HFA INHALER INH PRN (21:50)
[2025-02-19] MEDS: OLANZapine 5 MG TAB PO SCH (22:20)
[2025-02-19] MEDS: traZODone 50 MG TAB PO PRN (22:20)
[2025-02-20 06:36] VITALS: BP 131/63; TEMP 97; O2SAT 98
[2025-02-20 10:39] VITALS: BP 125/78
[2025-02-20] MEDS: LURASIDONE HCL 40MG TAB (LATUDA) PO SCH (10:39)
[2025-02-20] MEDS: PRAZOSIN 1 MG CAP PO SCH (10:40)
[2025-02-20] MEDS: DIVALPROEX 500 MG TAB PO SCH (10:40)
[2025-02-20] MEDS: MULTIVITAMINS/MINERALS THERAP 1 TAB PO SCH (10:40)
[2025-02-20] MEDS: atenoloL 25 MG TAB PO SCH (10:40)
[2025-02-20] MEDS: VENLAFAXINE **XR** 75MG CAPSULE PO SCH (10:41)
[2025-02-20] MEDS: hydroCHLOROthiazide 12.5 MG CAPSULE PO SCH (10:41)
[2025-02-20 13:23] LABS: BLOOD UREA NITROGEN 13 MG/DL (9-23); CALCIUM LEVEL 8.7 MG/DL (8.5-10.1); CARBON DIOXIDE LEVEL 28 MMOL/L (20-31); CHLORIDE LEVEL 105 MMOL/L (98-107); CREATININE FOR GFR 0.56 MG/DL (0.55-1.30); GLOMERULAR FILTRATION RATE > 60.0 (>60); GLUCOSE, FASTING 92 MG/DL (60-100); POTASSIUM SERUM 3.8 MMOL/L (3.5-5.1); SODIUM LEVEL 143 MMOL/L (136-145)
[2025-02-20] MEDS: ACETAMINOPHEN 325 MG TAB PO PRN (13:56)
[2025-02-21 08:16] VITALS: BP 138/89
[2025-02-22 06:10] VITALS: BP 113/65; TEMP 96.7; O2SAT 96
[2025-02-22] MEDS: TUBERCULIN PPD 5 UNITS/0.1 ML ID ONE (12:15)
[2025-02-22 15:08] VITALS: BP 123/68; TEMP 97; O2SAT 97
[2025-02-23] MEDS ORDERED: PERMETHRIN 5% CREAM 60 GM TOP SCH
[2025-02-23 06:31] VITALS: BP 119/64; TEMP 97; O2SAT 99
[2025-02-23] MEDS: **NOTE PATIENT COMMENT** MISC XX SCH (09:00)
[2025-02-23] MEDS: diphenhydrAMINE 25MG CAP PO PRN (11:30)
[2025-02-23] MEDS: IVERMECTIN 3 MG TAB (STROMECTOL) PO ONE (16:04)
[2025-02-23] MEDS ORDERED: PERMETHRIN 5% CREAM 60 GM TOP ONE (21:00)
[2025-02-23] MEDS: LORazepam 2 MG/ML 1ML VIAL IM STA (21:20)
[2025-02-23] MEDS: HALOPERIDOL LACTATE 5MG/ML VIAL IM STA (21:20)
[2025-02-23] MEDS: diphenhydrAMINE 50MG/ML VIAL IM STA (21:20)
[2025-02-24 06:23] VITALS: BP 105/56; TEMP 98.4; O2SAT 100
[2025-02-24] MEDS: [UNRECOGNIZED DRUG - REMARK] XX SCH (09:00)
[2025-02-24] MEDS ORDERED: **SEND HOME SECOND DOSE OF PERMETHRIN** MISC XX SCH (09:00)
[2025-02-24] MEDS ORDERED: PPD DOCUMENTATION ENTRY MISC XX ONE (12:00)
[2025-02-24] MEDS: NICOTINE 14 MG/24 HR TRANSDERMAL TD SCH (18:05)
[2025-02-25 06:23] VITALS: BP 127/69; TEMP 96.8; O2SAT 100
[2025-02-25 15:32] VITALS: BP 127/63; TEMP 97.2; O2SAT 97
[2025-02-26] MEDS: HALOPERIDOL LACTATE 5MG/ML VIAL IM STA (00:36)
[2025-02-26 09:17] VITALS: BP 138/90
[2025-02-26] MEDS: TUBERCULIN PPD 5 UNITS/0.1 ML ID ONE (13:17)
[2025-02-26 16:00] VITALS: BP 135/88; TEMP 97.9; O2SAT 99
[2025-02-26] MEDS: MAALOX 30 ML SUSP *UDC PO PRN (17:53)
[2025-02-27 16:35] VITALS: BP 118/73; TEMP 96.2; O2SAT 97
[2025-02-28 09:46] VITALS: BP 142/88
[2025-02-28] MEDS: PPD DOCUMENTATION ENTRY MISC XX ONE (09:52)
[2025-03-01 17:04] VITALS: BP 141/99; TEMP 96.3; O2SAT 97
[2025-03-01] MEDS: PRAZOSIN 1 MG CAP PO SCH (20:39)
[2025-03-02] MEDS: IVERMECTIN 3 MG TAB (STROMECTOL) PO ONE (09:19)
[2025-03-02 15:14] VITALS: BP 117/79; TEMP 97.6; O2SAT 98
[2025-03-03 13:39] VITALS: BP 134/88; TEMP 97.2; O2SAT 96
[2025-03-04] MEDS: LORazepam 2 MG/ML 1ML VIAL IM ONE (01:33)
[2025-03-05 08:10] VITALS: BP 134/87
[2025-03-06 15:16] VITALS: BP 127/79; TEMP 97.5; O2SAT 99
[2025-03-07 09:08] VITALS: BP 117/81
[2025-03-07 10:11] VITALS: BP 148/86
[2025-03-07] MEDS: OMEPRAZOLE 20MG CAP PO SCH (10:18)
[2025-03-07] MEDS: IBUPROFEN 400MG TAB PO PRN (10:19)
[2025-03-07] MEDS: diphenhydrAMINE 50MG CAP PO ONE (11:12)
[2025-03-07 16:02] VITALS: BP 117/70; TEMP 97.6; O2SAT 96
[2025-03-07] MEDS: MIRTAZAPINE 7.5MG PER 1/2 TABLET PO SCH (21:06)
[2025-03-08 08:51] VITALS: BP 136/94
[2025-03-08 13:19] LABS: KETONE, URINE AUTO RFX TRACE mg/dL (NEGATIVE); MUCUS, URINE RFX LARGE (NEGATIVE); RBC, URINE AUTO RFX 1 /HPF (0-3); SQUAM EPITHELIAL CELL UR AURFX 4 /HPF (0-6); WBC, URINE AUTO RFX 8 /HPF (0-3)
[2025-03-08 13:23] LABS: LEUKOCYTE ESTERASE UR AUTO RFX TRACE (NEGATIVE); NITRITE, URINE AUTO RFX POSITIVE (NEGATIVE)
[2025-03-08 16:18] VITALS: BP 130/86; TEMP 97.1; O2SAT 96
[2025-03-08 17:25] LABS: Trichomonas vaginalis (AMP) NOT DETECTED (NEGATIVE)
[2025-03-08 17:49] LABS: GC DNA AMPLIFICATION NEGATIVE (NEGATIVE)
[2025-03-09 15:30] LABS: BASO % 0.3 % (0.0-1.0); EOS # 0.1 10^3/uL (0.0-0.5); EOS % 1.3 % (0.0-3.0); HEMATOCRIT 42.6 % (36.0-47.0); HEMOGLOBIN 13.3 g/dl (12.0-15.5); LYMPH % 30.9 % (24.0-44.0); MEAN CORPUSCULAR HEMOGLOBIN 27.1 pg (27.0-33.0); MEAN CORPUSCULAR HGB CONC 31.2 g/dl (32.0-36.5); MEAN CORPUSCULAR VOLUME 86.9 fl (80.0-96.0); MONO # 0.7 10^3/uL (0.0-0.8); MONO % 6.7 % (2.0-8.0); NEUTROPHILS # 5.9 10^3/uL (1.5-8.5); NEUTROPHILS % 60.6 % (36.0-66.0); PLATELET COUNT, AUTOMATED 288 10^3/uL (150-450); WHITE BLOOD COUNT 9.8 10^3/uL (4.0-10.0)
[2025-03-09 16:01] LABS: ALBUMIN 3.5 G/DL (3.2-5.2); ALKALINE PHOSPHATASE 85 U/L (35-104); ALT/SGPT 53 U/L (7.0-40); AST/SGOT 28 U/L (<34); BILIRUBIN,TOTAL 0.4 MG/DL (0.3-1.2); BLOOD UREA NITROGEN 13 MG/DL (9-23); CALCIUM LEVEL 9.3 MG/DL (8.5-10.1); CARBON DIOXIDE LEVEL 28 MMOL/L (20-31); CHLORIDE LEVEL 103 MMOL/L (98-107); CREATININE FOR GFR 0.49 MG/DL (0.55-1.30); GLOMERULAR FILTRATION RATE > 90.0 (>60); GLUCOSE, FASTING 106 MG/DL (60-100); POTASSIUM SERUM 3.9 MMOL/L (3.5-5.1); SODIUM LEVEL 141 MMOL/L (136-145); TOTAL PROTEIN 6.9 G/DL (5.7-8.2)
[2025-03-10] MEDS: NITROFURANTOIN (MACROBID) 100 MG CAP PO SCH (11:47)
[2025-03-11 14:38] VITALS: BP 149/79; TEMP 97.3; O2SAT 97
[2025-03-11] MEDS: OLANZapine ORAL DISINTEGRATING TAB 5MG PO PRN (15:12)
[2025-03-12] MEDS: LURASIDONE 20 MG TAB (LATUDA) PO SCH (13:42)
[2025-03-12 17:25] VITALS: BP 149/82; TEMP 97.9; O2SAT 96
[2025-03-13 12:26] VITALS: BP 140/88
[2025-03-13 16:08] VITALS: BP 128/88; TEMP 97.3; O2SAT 97
[2025-03-14 15:48] VITALS: BP 115/75; TEMP 97.5; O2SAT 98
[2025-03-16 12:27] VITALS: BP 152/90; TEMP 97.3; O2SAT 98
[2025-03-17 11:39] VITALS: BP 141/88
[2025-03-17 20:32] LABS: HEMATOCRIT 41.2 % (36.0-47.0); HEMOGLOBIN 13.2 g/dl (12.0-15.5); MEAN CORPUSCULAR VOLUME 87.3 fl (80.0-96.0); PLATELET COUNT, AUTOMATED 197 10^3/uL (150-450); RED BLOOD COUNT 4.72 10^6/uL (4.00-5.40); WHITE BLOOD COUNT 6.2 10^3/uL (4.0-10.0)
[2025-03-17] MEDS: KETOROLAC 30 MG/ML 1ML VIAL IV ONE (20:34)
[2025-03-17] MEDS: FAMOTIDINE 20 MG TAB PO ONE (20:34)
[2025-03-17 20:58] LABS: ALBUMIN 3.2 G/DL (3.2-5.2); ALKALINE PHOSPHATASE 84 U/L (35-104); ALT/SGPT 46 U/L (7.0-40); AST/SGOT 31 U/L (<34); BILIRUBIN,TOTAL 0.5 MG/DL (0.3-1.2); BLOOD UREA NITROGEN 17 MG/DL (9-23); CALCIUM LEVEL 8.9 MG/DL (8.5-10.1); CARBON DIOXIDE LEVEL 29 MMOL/L (20-31); CHLORIDE LEVEL 106 MMOL/L (98-107); CREATININE FOR GFR 0.51 MG/DL (0.55-1.30); GLOMERULAR FILTRATION RATE > 90.0 (>60); GLUCOSE, FASTING 112 MG/DL (60-100); POTASSIUM SERUM 4.3 MMOL/L (3.5-5.1); SODIUM LEVEL 144 MMOL/L (136-145); TOTAL PROTEIN 6.4 G/DL (5.7-8.2)
[2025-03-17 23:00] LABS: BILIRUBIN,DIRECT < 0.1 MG/DL (<0.4)
[2025-03-18] MEDS ORDERED: ISOVUE-370 76% 100ML VIAL As Ordered ONE (08:55)
[2025-03-18 10:02] VITALS: BP 142/95
[2025-03-18 16:22] LABS: KETONE, URINE AUTO RFX TRACE mg/dL (NEGATIVE); MUCUS, URINE RFX SMALL (NEGATIVE); NITRITE, URINE AUTO RFX NEGATIVE (NEGATIVE); RBC, URINE AUTO RFX 1 /HPF (0-3); SQUAM EPITHELIAL CELL UR AURFX 7 /HPF (0-6)
[2025-03-18 16:23] LABS: LEUKOCYTE ESTERASE UR AUTO RFX 2+ (NEGATIVE); WBC, URINE AUTO RFX 25 /HPF (0-3)
[2025-03-18 16:29] VITALS: BP 118/74; TEMP 97.7; O2SAT 97
[2025-03-18] MEDS ORDERED: NITROFURANTOIN (MACROBID) 100 MG CAP PO SCH (21:00)
[2025-03-18] MEDS: PHENAZOPYRIDINE 100 MG TAB PO SCH (21:11)
[2025-03-19 10:08] VITALS: BP 117/83
[2025-03-19] MEDS: NITROFURANTOIN (MACROBID) 100 MG CAP PO SCH (10:15)
[2025-03-19 15:17] VITALS: BP 163/85; TEMP 97.3; O2SAT 98
[2025-03-20 08:49] VITALS: BP 138/88
[2025-03-20 18:08] VITALS: BP 117/57; TEMP 96.9
[2025-03-22 08:27] VITALS: BP 138/96
[2025-03-22 15:38] VITALS: BP 118/78; TEMP 97.3; O2SAT 98
[2025-03-23 08:32] VITALS: BP 165/93
[2025-03-23 08:36] VITALS: BP 165/93
[2025-03-23] MEDS ORDERED: OMEP-173 PO (10:35)
[2025-03-23] MEDS ORDERED: OLAN1TAB16 PO (10:35)
[2025-03-23] MEDS ORDERED: LATU20TA PO (10:35)
== END 2025-03-23 11:05 | disposition home or self-care (01) | DRG 753 ==
LOC: M ED 09:56 → M ED INP 11:14 → M PSY 14:13
PROVIDERS: ADMIT Psychiatry & Neurology Psychiatry; ATTEND Psychiatry & Neurology Psychiatry
DX: F31.81 Bipolar II disorder (principal); F41.1 Generalized anxiety disorder; F60.3 Borderline personality disorder; F17.200 Nicotine dependence, unspecified, uncomplicated; I10 Essential (primary) hypertension; N93.9 Abnormal uterine and vaginal bleeding, unspecified; J45.909 Unspecified asthma, uncomplicated; Z91.51 Personal history of suicidal behavior; Z91.52 Personal history of nonsuicidal self-harm; Z62.810 Personal history of physical and sexual abuse in childhood; Z56.0 Unemployment, unspecified; Z79.899 Other long term (current) drug therapy; Z78.1 Physical restraint status; Z62.811 Personal history of psychological abuse in childhood; Z91.410 Personal history of adult physical and sexual abuse

== ENCOUNTER 2025-05-22 02:49 | Emergency (ER) | payer OTHER ==
[~2025-05-22] VITALS: Ht 165.1 cm; Wt 160.7 kg
[~2025-05-22 02:49] MED LIST changes: -ABIL400I IM; +ARIP400S IM; -DEPA250T32 PO; +DIVA-41 PO; +DIVA-65 PO; -DIVA500T94 PO; +OMEP-173 PO; +OMEP1CAP73 PO
[2025-05-22 02:54] VITALS: BP 143/68; TEMP 97.9; O2SAT 98
== END 2025-05-22 06:55 | disposition home or self-care (01) ==
LOC: M ED 02:49
DX: F43.21 Adjustment disorder with depressed mood (principal); Z79.52 Long term (current) use of systemic steroids; Z79.899 Other long term (current) drug therapy

== ENCOUNTER 2025-06-03 05:15 | Inpatient (IN) | payer OTHER ==
[~2025-06-03] VITALS: Ht 170.2 cm; Wt 224.0 kg
[2025-06-03 05:25] VITALS: TEMP 98; O2SAT 99
[2025-06-03] MEDS ORDERED: diphenhydrAMINE 50 MG/ML VIAL IM ONE (07:30)
[2025-06-03] MEDS ORDERED: HALOPERIDOL LACTATE 5 MG/ML VIAL IM ONE (07:30)
[2025-06-03 07:47] LABS: PLATELET COUNT, AUTOMATED 274 10^3/uL (150-450)
[2025-06-03 08:11] LABS: VALPROIC ACID (DEPAKOTE) 23.6 UG/ML (50.0-100.0)
[2025-06-03 08:15] LABS: ETHYL ALCOHOL (ETHANOL) < 0.003 % (0.000-0.010)
[2025-06-03 08:17] LABS: ALT/SGPT 34 U/L (7.0-40); AST/SGOT 19 U/L (<34); CALCIUM LEVEL 8.7 MG/DL (8.5-10.1); CARBON DIOXIDE LEVEL 28 MMOL/L (20-31); CHLORIDE LEVEL 104 MMOL/L (98-107); CREATININE FOR GFR 0.54 MG/DL (0.55-1.30); GLOMERULAR FILTRATION RATE > 90.0 (>60); POTASSIUM SERUM 3.9 MMOL/L (3.5-5.1); SALICYLATE LEVEL < 3.0 MG/DL (<30); SODIUM LEVEL 143 MMOL/L (136-145)
[2025-06-03 09:01] LABS: HCG, SERUM QUALITATIVE NEGATIVE (NEGATIVE)
[2025-06-03 11:00] VITALS: BP 116/65
[2025-06-03] MEDS ORDERED: IBUPROFEN 400 MG TAB PO PRN (13:05)
[2025-06-03] MEDS ORDERED: MOM 30 ML SUSPENSION UDC PO PRN (13:05)
[2025-06-03] MEDS ORDERED: MAALOX 30 ML SUSP *UDC PO PRN (13:05)
[2025-06-03] MEDS ORDERED: DIVA250T67 PO (14:11)
[2025-06-03] MEDS ORDERED: LURA60TA PO (14:12)
[2025-06-03] MEDS ORDERED: VENL150T24 PO (14:16)
[2025-06-03] MEDS ORDERED: HOME MED LIST COMPLETE! XX SCH (14:20)
[2025-06-04] MEDS ORDERED: ALBUTEROL 90 MCG/ACT 8 GM HFA INHALER INH PRN ×2 (12:10→12:20)
[2025-06-04] MEDS ORDERED: traZODone 50 MG TAB PO PRN (12:20)
[2025-06-04] MEDS: VENLAFAXINE **XR** 75MG CAPSULE PO SCH (13:26)
[2025-06-04] MEDS: OMEPRAZOLE 20MG CAP PO SCH (13:27)
[2025-06-04] MEDS: LURASIDONE HCL 20 MG TAB PO SCH (17:46)
[2025-06-04] MEDS: DIVALPROEX 250 MG TAB PO SCH (20:56)
[2025-06-04] MEDS: PRAZOSIN 1 MG CAP PO SCH (21:02)
[2025-06-05] MEDS: MULTIVITAMINS/MINERALS THERAP 1 TAB PO SCH (11:01)
[2025-06-05] MEDS: ACETAMINOPHEN 325 MG TAB PO PRN (13:22)
[2025-06-05] MEDS: traZODone 50 MG TAB PO PRN (21:21)
[2025-06-06 09:34] VITALS: BP 146/78
== END 2025-06-06 10:40 | disposition home or self-care (01) | DRG 751 ==
LOC: M ED 05:15 → M ED INP 13:01 → M PSY 14:27
PROVIDERS: ADMIT Student in an Organized Health Care Education/Training Program; ATTEND Student in an Organized Health Care Education/Training Program
DX: F33.9 Major depressive disorder, recurrent, unspecified (principal); R45.851 Suicidal ideations; E66.01 Morbid (severe) obesity due to excess calories; I10 Essential (primary) hypertension; D50.9 Iron deficiency anemia, unspecified; F17.200 Nicotine dependence, unspecified, uncomplicated; Z91.148 Patient's other noncompliance with medication regimen for other reason; F60.3 Borderline personality disorder; G47.00 Insomnia, unspecified; E03.9 Hypothyroidism, unspecified; J45.909 Unspecified asthma, uncomplicated; K21.9 Gastro-esophageal reflux disease without esophagitis; N92.6 Irregular menstruation, unspecified; R73.03 Prediabetes; Z79.899 Other long term (current) drug therapy

== ENCOUNTER 2025-06-17 02:18 | Emergency (ER) | payer MEDICAID, OTHER ==
[~2025-06-17] VITALS: Ht 167.6 cm; Wt 220.0 kg
[~2025-06-17 02:18] MED LIST changes: +DIVA250T67 PO; +HYDR12.510 PO; -HYDR12CA PO
[2025-06-17 02:23] VITALS: BP 148/95; TEMP 99; O2SAT 98
[2025-06-17 03:25] LABS: PLATELET COUNT, AUTOMATED 248 10^3/uL (150-450)
[2025-06-17 03:58] LABS: ETHYL ALCOHOL (ETHANOL) < 0.003 % (0.000-0.010)
[2025-06-17 03:59] LABS: ALT/SGPT 38 U/L (7.0-40); AST/SGOT 27 U/L (<34); CALCIUM LEVEL 8.6 MG/DL (8.5-10.1); CARBON DIOXIDE LEVEL 26 MMOL/L (20-31); CHLORIDE LEVEL 103 MMOL/L (98-107); CREATININE FOR GFR 0.56 MG/DL (0.55-1.30); GLOMERULAR FILTRATION RATE > 90.0 (>60); POTASSIUM SERUM 3.8 MMOL/L (3.5-5.1); SALICYLATE LEVEL < 3.0 MG/DL (<30); SODIUM LEVEL 141 MMOL/L (136-145)
[2025-06-17 07:45] LABS: VALPROIC ACID (DEPAKOTE) 24.7 UG/ML (50.0-100.0)
== END 2025-06-17 11:16 | disposition home or self-care (01) ==
LOC: M ED 02:18
DX: R45.851 Suicidal ideations (principal); F31.30 Bipolar disorder, current episode depressed, mild or moderate severity, unspecified; F60.3 Borderline personality disorder; D50.9 Iron deficiency anemia, unspecified; E66.9 Obesity, unspecified; F17.200 Nicotine dependence, unspecified, uncomplicated; Z79.52 Long term (current) use of systemic steroids; Z79.899 Other long term (current) drug therapy

== ENCOUNTER 2025-06-23 22:15 | Emergency (ER) | payer OTHER ==
[~2025-06-23] VITALS: Ht 160 cm; Wt 169.8 kg
[2025-06-23 23:23] LABS: PLATELET COUNT, AUTOMATED 263 10^3/uL (150-450)
[2025-06-23 23:48] LABS: ETHYL ALCOHOL (ETHANOL) 0.005 % (0.000-0.010)
[2025-06-23 23:49] LABS: SALICYLATE LEVEL < 3.0 MG/DL (<30)
[2025-06-23 23:50] LABS: ALT/SGPT 37 U/L (7.0-40); AST/SGOT 25 U/L (<34); CALCIUM LEVEL 8.7 MG/DL (8.5-10.1); CARBON DIOXIDE LEVEL 28 MMOL/L (20-31); CHLORIDE LEVEL 106 MMOL/L (98-107); CREATININE FOR GFR 0.54 MG/DL (0.55-1.30); GLOMERULAR FILTRATION RATE > 90.0 (>60); POTASSIUM SERUM 4.2 MMOL/L (3.5-5.1); SODIUM LEVEL 144 MMOL/L (136-145)
[2025-06-24] MEDS ORDERED: HOME MED LIST COMPLETE! XX SCH (02:35)
[2025-06-24] MEDS: DIVALPROEX 250 MG *ER* TAB PO SCH ×2 (08:29→09:00)
[2025-06-24] MEDS: MULTIVITAMINS/MINERALS THERAP 1 TAB PO SCH (08:29)
[2025-06-24] MEDS: OMEPRAZOLE 20MG CAP PO SCH (08:29)
[2025-06-24] MEDS ORDERED: VENLAFAXINE 37.5 MG TAB PO SCH (09:00)
[2025-06-24] MEDS ORDERED: traZODone 25MG PER 1/2 TABLET PO SCH (09:00)
[2025-06-24] MEDS: VENLAFAXINE **XR** 75MG CAPSULE PO SCH (12:25)
[2025-06-24 13:33] LABS: AMPHETAMINES LEVEL URINE NEGATIVE (NEGATIVE); BARBITURATES URINE NEGATIVE (NEGATIVE); BENZODIAZEPINES URINE NEGATIVE (NEGATIVE); CANNABINOIDS URINE NEGATIVE (NEGATIVE); COCAINE METABOLITE URINE NEGATIVE (NEGATIVE); METHADONE URINE NEGATIVE (NEGATIVE); OPIATES URINE NEGATIVE (NEGATIVE); PHENCYCLIDINE URINE NEGATIVE (NEGATIVE)
[2025-06-24 14:46] VITALS: BP 130/66; TEMP 97.4; O2SAT 98
[2025-06-24] MEDS ORDERED: LURASIDONE HCL 20 MG TAB PO SCH (18:00)
[2025-06-24] MEDS ORDERED: traZODone 50 MG TAB PO PRN (21:00)
[2025-06-24] MEDS ORDERED: DIVALPROEX 250 MG *ER* TAB PO SCH (21:00)
[2025-06-24] MEDS ORDERED: PRAZOSIN 1 MG CAP PO SCH (21:00)
== END 2025-06-24 14:48 | disposition home or self-care (01) ==
LOC: M ED 22:15
DX: F60.3 Borderline personality disorder (principal); I10 Essential (primary) hypertension; J45.909 Unspecified asthma, uncomplicated; K21.9 Gastro-esophageal reflux disease without esophagitis; F17.200 Nicotine dependence, unspecified, uncomplicated; Z90.89 Acquired absence of other organs; Z79.899 Other long term (current) drug therapy

== ENCOUNTER 2025-07-01 00:18 | Emergency (ER) | payer OTHER ==
[~2025-07-01] VITALS: Ht 162.6 cm; Wt 210.0 kg
[2025-07-01 08:18] VITALS: BP 100/51; TEMP 97.8; O2SAT 96
[2025-07-01 08:28] LABS: PLATELET COUNT, AUTOMATED 265 10^3/uL (150-450)
[2025-07-01 08:52] LABS: ETHYL ALCOHOL (ETHANOL) < 0.003 % (0.000-0.010)
[2025-07-01 08:53] LABS: SALICYLATE LEVEL < 3.0 MG/DL (<30)
[2025-07-01 08:54] LABS: ALT/SGPT 43 U/L (7.0-40); AST/SGOT 27 U/L (<34); CALCIUM LEVEL 8.2 MG/DL (8.5-10.1); CARBON DIOXIDE LEVEL 28 MMOL/L (20-31); CHLORIDE LEVEL 104 MMOL/L (98-107); CREATININE FOR GFR 0.51 MG/DL (0.55-1.30); GLOMERULAR FILTRATION RATE > 90.0 (>60); POTASSIUM SERUM 4.2 MMOL/L (3.5-5.1); SODIUM LEVEL 143 MMOL/L (136-145)
[2025-07-01 09:06] LABS: HCG, SERUM QUALITATIVE NEGATIVE (NEGATIVE)
[2025-07-01 11:23] LABS: VALPROIC ACID (DEPAKOTE) 56.3 UG/ML (50.0-100.0)
== END 2025-07-01 12:30 | disposition home or self-care (01) ==
LOC: M ED 00:18
DX: F31.9 Bipolar disorder, unspecified (principal); F17.200 Nicotine dependence, unspecified, uncomplicated; J45.909 Unspecified asthma, uncomplicated; Z79.899 Other long term (current) drug therapy

== ENCOUNTER 2025-07-07 21:11 | Emergency (ER) | payer OTHER ==
[~2025-07-07] VITALS: Ht 160 cm; Wt 170.0 kg
[2025-07-08 02:35] VITALS: BP 121/59; TEMP 97.9; O2SAT 97
[2025-07-08] MEDS: DIVALPROEX 250 MG TAB PO ONE (13:17)
[2025-07-08] MEDS: VENLAFAXINE **XR** 75MG CAPSULE PO ONE (13:18)
[2025-07-08] MEDS ORDERED: LURASIDONE HCL 20 MG TAB PO SCH (18:00)
== END 2025-07-08 15:39 | disposition home or self-care (01) ==
LOC: M ED 21:11
DX: F31.9 Bipolar disorder, unspecified (principal); F60.3 Borderline personality disorder; Z79.899 Other long term (current) drug therapy

== ENCOUNTER 2025-08-08 23:55 | Emergency (ER) | payer OTHER ==
[~2025-08-08 23:55] MED LIST changes: +ZOLP10TA11; +ZOLP10TA11 PO; -ZOLP10TA2; -ZOLP10TA2 PO
[2025-08-09 00:49] LABS: PLATELET COUNT, AUTOMATED 242 10^3/uL (150-450)
[2025-08-09 01:16] LABS: ALT/SGPT 57 U/L (7.0-40); CALCIUM LEVEL 9.0 MG/DL (8.5-10.1); CARBON DIOXIDE LEVEL 27 MMOL/L (20-31); CHLORIDE LEVEL 101 MMOL/L (98-107); CREATININE FOR GFR 0.57 MG/DL (0.55-1.30); GLOMERULAR FILTRATION RATE > 90.0 (>60); POTASSIUM SERUM 4.1 MMOL/L (3.5-5.1); SALICYLATE LEVEL < 3.0 MG/DL (<30); SODIUM LEVEL 138 MMOL/L (136-145)
[2025-08-09 01:18] LABS: ETHYL ALCOHOL (ETHANOL) < 0.003 % (0.000-0.010)
[2025-08-09] MEDS: ACETAMINOPHEN 500 MG TAB PO ONE (03:00)
[2025-08-09 08:41] VITALS: BP 122/59; TEMP 97.5; O2SAT 95
[2025-08-10 07:12] LABS: AST/SGOT 53 U/L (<34)
== END 2025-08-09 09:03 | disposition home or self-care (01) ==
LOC: M ED 23:55
DX: F60.3 Borderline personality disorder (principal); I10 Essential (primary) hypertension; F31.9 Bipolar disorder, unspecified; D50.9 Iron deficiency anemia, unspecified; E66.9 Obesity, unspecified; F17.200 Nicotine dependence, unspecified, uncomplicated; Z79.899 Other long term (current) drug therapy

== ENCOUNTER 2025-09-08 23:58 | Emergency (ER) | payer OTHER ==
[2025-09-09] MEDS ORDERED: traZODone 50 MG TAB PO PRN ×2 (08:45→20:30)
[2025-09-09] MEDS ORDERED: DIVALPROEX 250 MG TAB PO ONE (09:00)
[2025-09-09] MEDS ORDERED: VENLAFAXINE **XR** 75MG CAPSULE PO SCH (09:00)
[2025-09-09] MEDS: DIVALPROEX 250 MG TAB PO ONE (09:00)
[2025-09-09] MEDS: VENLAFAXINE **XR** 75MG CAPSULE PO ONE (09:00)
[2025-09-09] MEDS ORDERED: HOME MED LIST COMPLETE! XX SCH (10:20)
[2025-09-09 14:35] LABS: PLATELET COUNT, AUTOMATED 212 10^3/uL (150-450)
[2025-09-09 14:53] LABS: ETHYL ALCOHOL (ETHANOL) < 0.003 % (0.000-0.010)
[2025-09-09 14:55] LABS: ALT/SGPT 40 U/L (7.0-40); AST/SGOT 35 U/L (<34); CALCIUM LEVEL 8.6 MG/DL (8.5-10.1); CARBON DIOXIDE LEVEL 27 MMOL/L (20-31); CHLORIDE LEVEL 106 MMOL/L (98-107); CREATININE FOR GFR 0.49 MG/DL (0.55-1.30); GLOMERULAR FILTRATION RATE > 90.0 (>60); POTASSIUM SERUM 4.0 MMOL/L (3.5-5.1); SALICYLATE LEVEL < 3.0 MG/DL (<30); SODIUM LEVEL 143 MMOL/L (136-145)
[2025-09-09 15:07] LABS: HCG, SERUM QUALITATIVE NEGATIVE (NEGATIVE)
[2025-09-09] MEDS ORDERED: LURASIDONE HCL 40 MG TAB PO SCH (18:00)
[2025-09-09 19:43] LABS: AMPHETAMINES LEVEL URINE NEGATIVE (NEGATIVE); BARBITURATES URINE NEGATIVE (NEGATIVE); BENZODIAZEPINES URINE NEGATIVE (NEGATIVE); CANNABINOIDS URINE NEGATIVE (NEGATIVE); COCAINE METABOLITE URINE NEGATIVE (NEGATIVE); METHADONE URINE NEGATIVE (NEGATIVE); OPIATES URINE NEGATIVE (NEGATIVE); PHENCYCLIDINE URINE NEGATIVE (NEGATIVE)
[2025-09-09] MEDS ORDERED: MOM 30 ML SUSPENSION UDC PO PRN (20:30)
[2025-09-09] MEDS ORDERED: IBUPROFEN 400 MG TAB PO PRN (20:30)
[2025-09-09] MEDS: LURASIDONE HCL 20 MG TAB PO ONE (20:30)
[2025-09-09] MEDS ORDERED: MAALOX 30 ML SUSP *UDC PO PRN (20:30)
[2025-09-09] MEDS ORDERED: OLANZapine 5 MG TAB PO PRN (20:30)
[2025-09-09] MEDS ORDERED: ACETAMINOPHEN 325 MG TAB PO PRN (20:30)
[2025-09-09] MEDS: PRAZOSIN 1 MG CAP PO ONE (20:31)
[2025-09-09] MEDS ORDERED: DIVALPROEX 250 MG TAB PO SCH (21:00)
[2025-09-09] MEDS ORDERED: PRAZOSIN 1 MG CAP PO SCH (21:00)
[2025-09-09] MEDS ORDERED: LURASIDONE HCL 20 MG TAB PO SCH (21:00)
[2025-09-10] MEDS ORDERED: VENLAFAXINE **XR** 75MG CAPSULE PO SCH (09:00)
[2025-09-10 10:49] VITALS: BP 162/92; TEMP 98.4; O2SAT 97
== END 2025-09-10 10:50 | disposition home or self-care (01) ==
LOC: M ED 23:58 → UNDOADMIN 09-09 20:29 → M ED INP 09-09 20:29 → UNDODISIN 09-10 10:54
DX: F60.3 Borderline personality disorder (principal); F31.9 Bipolar disorder, unspecified; R45.851 Suicidal ideations; K21.9 Gastro-esophageal reflux disease without esophagitis; F79 Unspecified intellectual disabilities; F43.10 Post-traumatic stress disorder, unspecified; F60.7 Dependent personality disorder; I10 Essential (primary) hypertension; J45.909 Unspecified asthma, uncomplicated; E78.5 Hyperlipidemia, unspecified; E11.9 Type 2 diabetes mellitus without complications; K74.60 Unspecified cirrhosis of liver; C34.90 Malignant neoplasm of unspecified part of unspecified bronchus or lung; Z62.810 Personal history of physical and sexual abuse in childhood; E66.01 Morbid (severe) obesity due to excess calories; Z76.5 Malingerer [conscious simulation]; Z79.899 Other long term (current) drug therapy

== ENCOUNTER 2025-09-17 22:37 | Inpatient (IN) | payer OTHER ==
[~2025-09-17] VITALS: Ht 160 cm; Wt 174.3 kg
[2025-09-18] MEDS ORDERED: DIVA-41 PO (12:50)
[2025-09-18] MEDS ORDERED: MULTTAB86 PO (12:59)
[2025-09-18] MEDS ORDERED: HOME MED LIST COMPLETE! XX SCH (13:00)
[2025-09-18 13:03] LABS: PLATELET COUNT, AUTOMATED 230 10^3/uL (150-450)
[2025-09-18 13:36] LABS: ETHYL ALCOHOL (ETHANOL) 0.004 % (0.000-0.010)
[2025-09-18 13:37] LABS: ALT/SGPT 50 U/L (7.0-40); AST/SGOT 55 U/L (<34); CALCIUM LEVEL 8.9 MG/DL (8.5-10.1); CARBON DIOXIDE LEVEL 28 MMOL/L (20-31); CHLORIDE LEVEL 103 MMOL/L (98-107); CREATININE FOR GFR 0.51 MG/DL (0.55-1.30); GLOMERULAR FILTRATION RATE > 90.0 (>60); POTASSIUM SERUM 4.4 MMOL/L (3.5-5.1); SALICYLATE LEVEL < 3.0 MG/DL (<30); SODIUM LEVEL 142 MMOL/L (136-145)
[2025-09-18 13:47] LABS: AMPHETAMINES LEVEL URINE NEGATIVE (NEGATIVE); BARBITURATES URINE NEGATIVE (NEGATIVE); BENZODIAZEPINES URINE NEGATIVE (NEGATIVE); CANNABINOIDS URINE NEGATIVE (NEGATIVE); COCAINE METABOLITE URINE NEGATIVE (NEGATIVE); METHADONE URINE NEGATIVE (NEGATIVE); OPIATES URINE NEGATIVE (NEGATIVE); PHENCYCLIDINE URINE NEGATIVE (NEGATIVE)
[2025-09-18 14:23] LABS: URINE PREG TEST NEGATIVE (NEGATIVE)
[2025-09-18] MEDS ORDERED: MOM 30 ML SUSPENSION UDC PO PRN (14:45)
[2025-09-18] MEDS ORDERED: MAALOX 30 ML SUSP *UDC PO PRN (14:45)
[2025-09-18] MEDS ORDERED: traZODone 50 MG TAB PO PRN ×2 (14:45)
[2025-09-18] MEDS ORDERED: ACETAMINOPHEN 325 MG TAB PO PRN (14:45)
[2025-09-18] MEDS ORDERED: IBUPROFEN 400 MG TAB PO PRN (14:45)
[2025-09-18 15:30] VITALS: BP 130/88; TEMP 97.1; O2SAT 97
[2025-09-18] MEDS: DIVALPROEX 250 MG TAB PO SCH (21:00)
[2025-09-18] MEDS: DIVALPROEX 500 MG TAB PO SCH (21:00)
[2025-09-18] MEDS: PRAZOSIN 1 MG CAP PO SCH (21:00)
[2025-09-19 12:07] VITALS: BP 141/88
== END 2025-09-19 15:17 | disposition home or self-care (01) | DRG 751 ==
LOC: M ED 22:37 → M ED INP 09-18 14:44 → M PSY 09-18 15:15
PROVIDERS: ADMIT General Practice; ATTEND General Practice
DX: F33.2 Major depressive disorder, recurrent severe without psychotic features (principal); E66.01 Morbid (severe) obesity due to excess calories; R45.851 Suicidal ideations; F70 Mild intellectual disabilities; Z91.148 Patient's other noncompliance with medication regimen for other reason; F60.3 Borderline personality disorder; F43.10 Post-traumatic stress disorder, unspecified; I10 Essential (primary) hypertension; J45.909 Unspecified asthma, uncomplicated; Z79.899 Other long term (current) drug therapy; Z91.51 Personal history of suicidal behavior; Z91.52 Personal history of nonsuicidal self-harm

== ENCOUNTER 2025-09-23 21:39 | Inpatient (IN) | payer OTHER ==
[~2025-09-23] VITALS: Ht 160 cm; Wt 174.0 kg
[~2025-09-23 21:39] MED LIST changes: +MULTTAB86 PO
[2025-09-23 22:11] LABS: PLATELET COUNT, AUTOMATED 257 10^3/uL (150-450)
[2025-09-23 22:35] LABS: ETHYL ALCOHOL (ETHANOL) < 0.003 % (0.000-0.010)
[2025-09-23 22:37] LABS: ALT/SGPT 57 U/L (7.0-40); AST/SGOT 43 U/L (<34); CALCIUM LEVEL 8.8 MG/DL (8.5-10.1); CARBON DIOXIDE LEVEL 26 MMOL/L (20-31); CHLORIDE LEVEL 103 MMOL/L (98-107); CREATININE FOR GFR 0.50 MG/DL (0.55-1.30); GLOMERULAR FILTRATION RATE > 90.0 (>60); POTASSIUM SERUM 4.0 MMOL/L (3.5-5.1); SALICYLATE LEVEL < 3.0 MG/DL (<30); SODIUM LEVEL 139 MMOL/L (136-145)
[2025-09-23 22:47] LABS: HCG, SERUM QUALITATIVE NEGATIVE (NEGATIVE)
[2025-09-23] MEDS: ACETYLCYSTEINE 15,000 MG in D5W 250 ML IV ONE (23:21)
[2025-09-24] VITALS (7 sets, daily range): BP systolic 124–167; BP diastolic 68–81; TEMP 97.2–97.9; O2SAT 95–97
[2025-09-24] MEDS ORDERED: ONDANSETRON 4MG/2ML VIAL IV PRN (00:10)
[2025-09-24 00:12] LABS: INR 0.97
[2025-09-24] MEDS: ACETYLCYSTEINE 5,000 MG in D5W 500 ML IV ONE (01:00)
[2025-09-24] MEDS: NS (Normal Saline) 0.9% 1,000 ML IV SCH (01:08)
[2025-09-24 01:11] LABS: ALT/SGPT 53 U/L (7.0-40); AST/SGOT 36 U/L (<34); CALCIUM LEVEL 8.5 MG/DL (8.5-10.1); CARBON DIOXIDE LEVEL 26 MMOL/L (20-31); CHLORIDE LEVEL 103 MMOL/L (98-107); CREATININE FOR GFR 0.51 MG/DL (0.55-1.30); GLOMERULAR FILTRATION RATE > 90.0 (>60); POTASSIUM SERUM 4.3 MMOL/L (3.5-5.1); SODIUM LEVEL 140 MMOL/L (136-145)
[2025-09-24] MEDS: D5W IV ONE (01:55)
[2025-09-24] MEDS: ACETYLCYSTEINE IV ONE (01:55)
[2025-09-24] MEDS ORDERED: OMEP-173 PO (02:47)
[2025-09-24] MEDS ORDERED: HOME MED LIST COMPLETE! XX SCH (03:00)
[2025-09-24] MEDS: ACETYLCYSTEINE 10,000 MG in D5W 1,000 ML IV ONE (06:52)
[2025-09-24] MEDS: PANTOPRAZOLE 40MG TAB PO SCH (09:04)
[2025-09-24] MEDS: ENOXAPARIN 40 MG/0.4 ML SYRINGE (J1650 PER 10MG) SC SCH (09:04)
[2025-09-24] MEDS ORDERED: ALBUTEROL 90 MCG/ACT 8 GM HFA INHALER INH PRN (12:40)
[2025-09-24] MEDS ORDERED: traZODone 50 MG TAB PO PRN (21:00)
[2025-09-24 21:28] LABS: VALPROIC ACID (DEPAKOTE) 18.2 UG/ML (50.0-100.0)
[2025-09-24 21:42] LABS: ALT/SGPT 58 U/L (7.0-40); AST/SGOT 108 U/L (<34); CALCIUM LEVEL 8.0 MG/DL (8.5-10.1); CARBON DIOXIDE LEVEL 25 MMOL/L (20-31); CHLORIDE LEVEL 107 MMOL/L (98-107); CREATININE FOR GFR 0.42 MG/DL (0.55-1.30); GLOMERULAR FILTRATION RATE > 90.0 (>60); SODIUM LEVEL 141 MMOL/L (136-145)
[2025-09-25 03:40] VITALS: BP 126/66; TEMP 97; O2SAT 95
[2025-09-25] MEDS: ACETYLCYSTEINE 10,000 MG in D5W 1,000 ML IV ONE (04:40)
[2025-09-25 07:54] VITALS: BP 122/78; TEMP 97.4; O2SAT 96
[2025-09-25] MEDS ORDERED: OMEPRAZOLE 20MG CAP PO SCH (09:00)
[2025-09-25] MEDS: NICOTINE 21 MG/24 HR 1 EA TRANSDERMAL TD PRN (12:05)
[2025-09-25 12:40] VITALS: BP 153/76; TEMP 97.2; O2SAT 96
[2025-09-25 15:57] LABS: BASO # 0.0 10^3/uL (0.0-0.2); BASO % 0.3 % (0.0-1.0); EOS # 0.1 10^3/uL (0.0-0.5); EOS % 1.4 % (0.0-3.0); LYMPH # 2.7 10^3/uL (1.5-5.0); LYMPH % 34.3 % (24.0-44.0); MONO # 0.8 10^3/uL (0.0-0.8); MONO % 9.9 % (2.0-8.0); NEUTROPHILS # 4.3 10^3/uL (1.5-8.5); NEUTROPHILS % 53.6 % (36.0-66.0)
[2025-09-25 16:00] VITALS: BP 147/93; TEMP 98.1; O2SAT 96
[2025-09-25 16:11] LABS: INR 0.96
[2025-09-25 16:18] LABS: VALPROIC ACID (DEPAKOTE) 9.3 UG/ML (50.0-100.0)
[2025-09-25 16:20] LABS: ALT/SGPT 55 U/L (7.0-40); AST/SGOT 55 U/L (<34); CALCIUM LEVEL 8.8 MG/DL (8.5-10.1); CARBON DIOXIDE LEVEL 27 MMOL/L (20-31); CHLORIDE LEVEL 105 MMOL/L (98-107); CREATININE FOR GFR 0.52 MG/DL (0.55-1.30); GLOMERULAR FILTRATION RATE > 90.0 (>60); MAGNESIUM LEVEL 2.1 MG/DL (1.8-2.4); POTASSIUM SERUM 4.2 MMOL/L (3.5-5.1); SODIUM LEVEL 142 MMOL/L (136-145)
[2025-09-25 17:32] LABS: AMPHETAMINES LEVEL URINE NEGATIVE (NEGATIVE); BARBITURATES URINE NEGATIVE (NEGATIVE); BENZODIAZEPINES URINE NEGATIVE (NEGATIVE); CANNABINOIDS URINE NEGATIVE (NEGATIVE); COCAINE METABOLITE URINE NEGATIVE (NEGATIVE); METHADONE URINE NEGATIVE (NEGATIVE); OPIATES URINE NEGATIVE (NEGATIVE); PHENCYCLIDINE URINE NEGATIVE (NEGATIVE)
[2025-09-25 19:45] VITALS: BP 147/73; TEMP 97.1; O2SAT 96
[2025-09-26] VITALS: BP 117/56; TEMP 97.6; O2SAT 97
[2025-09-26 04:18] VITALS: BP 116/70; TEMP 97.3; O2SAT 96
[2025-09-26 07:50] VITALS: BP 134/85; TEMP 97.5; O2SAT 96
== END 2025-09-26 14:54 | DRG 812 ==
LOC: M ED 21:39 → M ED INP 09-24 00:06 → M PCU 09-24 02:39
PROVIDERS: ADMIT Internal Medicine; ATTEND Student in an Organized Health Care Education/Training Program
DX: T39.1X2A Poisoning by 4-Aminophenol derivatives, intentional self-harm, initial encounter (principal); I10 Essential (primary) hypertension; Z68.44 Body mass index [BMI] 60.0-69.9, adult; D50.9 Iron deficiency anemia, unspecified; E03.9 Hypothyroidism, unspecified; F17.200 Nicotine dependence, unspecified, uncomplicated; E66.01 Morbid (severe) obesity due to excess calories; F31.9 Bipolar disorder, unspecified; F43.10 Post-traumatic stress disorder, unspecified; F60.3 Borderline personality disorder; G47.00 Insomnia, unspecified; J45.909 Unspecified asthma, uncomplicated; K21.9 Gastro-esophageal reflux disease without esophagitis; R73.03 Prediabetes; R74.01 Elevation of levels of liver transaminase levels; L83 Acanthosis nigricans; Z79.899 Other long term (current) drug therapy; Z91.199 Patient's noncompliance with other medical treatment and regimen due to unspecified reason; N92.6 Irregular menstruation, unspecified

== ENCOUNTER 2025-09-26 10:45 | Inpatient (IN) | payer OTHER ==
[~2025-09-26] VITALS: Ht 160 cm; Wt 174.0 kg
[2025-09-26] MEDS ORDERED: ACETAMINOPHEN 325 MG TAB PO PRN (13:00)
[2025-09-26] MEDS ORDERED: LORazepam 1 MG TAB PO PRN (13:00)
[2025-09-26] MEDS ORDERED: HALOPERIDOL 5 MG TAB PO PRN (13:00)
[2025-09-26] MEDS ORDERED: MAALOX 30 ML SUSP *UDC PO PRN (13:00)
[2025-09-26] MEDS ORDERED: OLANZapine 5 MG TAB PO PRN (13:00)
[2025-09-26 15:13] VITALS: TEMP 97.5; O2SAT 96
[2025-09-27] MEDS: traZODone 50 MG TAB PO PRN (02:03)
[2025-09-27] MEDS ORDERED: HOME MED LIST COMPLETE! XX SCH (07:40)
[2025-09-27] MEDS: TUBERCULIN PPD 5 UNITS/0.1 ML ID ONE (10:00)
[2025-09-27] MEDS: NICOTINE 14 MG/24 HR TRANSDERMAL TD SCH (10:11)
[2025-09-27] MEDS: DIVALPROEX 500 MG TAB PO SCH (11:16)
[2025-09-27] MEDS: DIVALPROEX 250 MG TAB PO SCH (11:16)
[2025-09-27] MEDS: VENLAFAXINE **XR** 75MG CAPSULE PO SCH (11:16)
[2025-09-27] MEDS: **PENDING PPD ENTRY XX SCH (11:18)
[2025-09-27] MEDS: LURASIDONE HCL 20 MG TAB PO SCH (18:14)
[2025-09-28] MEDS: PRAZOSIN 1 MG CAP PO SCH (05:55)
[2025-09-29] MEDS ORDERED: PPD DOCUMENTATION ENTRY MISC XX SCH (10:00)
[2025-09-29] MEDS ORDERED: NICOTINE 14 MG/24 HR TRANSDERMAL TD PRN (13:25)
[2025-09-29 14:42] VITALS: TEMP 98.4; O2SAT 97
[2025-09-29] MEDS: IBUPROFEN 400 MG TAB PO PRN (15:01)
[2025-09-29] MEDS: MOM 30 ML SUSPENSION UDC PO PRN (15:46)
[2025-09-29 22:13] VITALS: BP 138/96
[2025-09-30 15:49] VITALS: BP 120/65; TEMP 97.2; O2SAT 97
[2025-09-30] MEDS: traZODone 50 MG TAB PO PRN (20:15)
[2025-10-01] MEDS ORDERED: VENL150C43 PO (09:29)
== END 2025-10-01 13:16 | disposition home or self-care (01) | DRG 753 ==
LOC: M PSY 14:55
PROVIDERS: ADMIT Internal Medicine; ATTEND Internal Medicine
DX: F31.9 Bipolar disorder, unspecified (principal); R45.851 Suicidal ideations; F60.3 Borderline personality disorder; F43.10 Post-traumatic stress disorder, unspecified; F60.7 Dependent personality disorder; I10 Essential (primary) hypertension; E66.01 Morbid (severe) obesity due to excess calories; Z79.899 Other long term (current) drug therapy